=== PATIENT | female | born 1955 | race Caucasian/White ===

== ENCOUNTER 2022-10-09 10:33 | Outpatient (OUT) | payer OTHER, SELFPAY ==
--- NOTE | 2022-10-09 10:43 | XR_ITS ---
[address] [address] Patient Name: ROBBIE KEMP MRN: [id number] date: 1955 Sex: F Assigned Patient Location: [facility] Current Patient Location: [facility] Accession/Order Number: [id number] Exam Date: 10/09/2022 10:55 Report Date: 10/10/2022 06:23 At the request of: KINDRA CABRERA Procedure: XR DEXA axial skeleton EXAMINATION: XR DEXA axial skeleton, 10/09/2022 10:55 AM EDT HISTORY: Screening for osteoporosis Z13.820 COMPARISON: 2009 TECHNIQUE: Dual-energy X-ray absorptiometry (DEXA) bone density study performed for the axial skeleton. HISTORY: Screening for osteoporosis Z13.820 FINDINGS: Bone mineral density AP spine L1-L4 measures 1.558 g/sq cm. T score 3.1. WHO classification: Normal. Lowest bone mineral density is in the right femoral trochanter measures 0.931 g/sq cm. T score 0.7. WHO classification: Normal IMPRESSION: Normal bone mineral density. Low fracture risk Electronically authenticated by: SAE LOPEZ Date: 10/10/2022 06:23
--- NOTE | 2022-10-09 10:43 | MM_ITS ---
Patient: ROBBIE KEMP Exam Date: 10/09/2022 : 1955 Gender:F Ordering : DR KINDRA CABRERA Admission #: [id number] Family : DR Lopezbryant Nguyencarolyne . Order #: [id number] CLICK HERE TO VIEW EXAM RADIOLOGY REPORT PROCEDURE: MM TOMOSYNTHESIS SCREENING BI COMPARISON: MG MAMM SCREEN 3D DEREK CAD, 09/30/2021. MG MAMM SCREEN 3D DEREK CAD, 09/22/2020. INDICATIONS: Screening mammogram Z12.31 Calculator Name NCI Breast Cancer Risk Assessment Tool 5 Year Breast Cancer Risk 2.30% Lifetime Breast Cancer Risk 8.00% Personal Breast Cancer No Personal Ovarian Cancer No Treatments None Family Cancers Cousin-maternal with breast cancer at age ~50. LOCATION: [facility] BREAST COMPOSITION: Heterogeneously dense,which may obscure small masses. FINDINGS: DIAGNOSTIC CATEGORY 2--BENIGN FINDING. NO CHANGE FROM COMPARISON. Scattered benign-appearing calcifications are present. Scattered benign-appearing lymph nodes are present. RIGHT BREAST: No significant suspicious finding. LEFT BREAST: No significant suspicious finding. RECOMMENDATIONS: ROUTINE MAMMOGRAM AND CLINICAL EVALUATION IN 12 MONTHS. PLEASE NOTE: A NORMAL MAMMOGRAM DOES NOT EXCLUDE THE POSSIBILITY OF BREAST CANCER. A CLINICALLY SUSPICIOUS PALPABLE LUMP SHOULD BE BIOPSIED. Dictated by: Ramses Nice MD on 10/09/2022 at 12:08 Approved by: Ramses Nice MD on 10/09/2022 at 12:10
== END 2022-10-09 10:34 ==
LOC: MAMMO 10:37
PROVIDERS: PCP Family Medicine; Visit Provider Specialist
DX: Z12.31 Encounter for screening mammogram for malignant neoplasm of breast (principal); Z13.820 Encounter for screening for osteoporosis; Z78.0 Asymptomatic menopausal state; Z80.3 Family history of malignant neoplasm of breast
CPT/HCPCS: 77063; 77067; 77080

== ENCOUNTER 2023-02-07 12:00 | Outpatient (OUT) | payer OTHER, SELFPAY ==
[2023-02-07 12:20] LABS: Basophils Absolute Auto 0.1 10^3/uL (0.0-0.1); Basophils Percent Auto 1.4 % (0.2-2.0); Eosinophils Absolute Auto 0.1 10^3/uL (0.0-0.7); Eosinophils Percent Auto 2.5 % (0.9-7.0); Hematocrit 35.7 % (36.0-48.0); Hemoglobin 11.8 g/dL (12.0-16.0); Immature Granulocytes Abs Auto 0.02 10^3/uL (0.00-0.03); Immature Granulocytes Pct Auto 0.5 % (0.0-0.5); Lymphocytes Absolute Auto 1.5 10^3/uL (1.2-3.8); Lymphocytes Percent Auto 34.7 % (20.5-60.0); Mean Corpuscular HGB Conc 33.1 g/dL (29.9-35.2); Mean Corpuscular Hemoglobin 34.4 pg (26.7-34.0); Mean Corpuscular Volume 104.1 fL (81.0-99.0); Mean Platelet Volume 9.7 fL (9.5-13.5); Monocytes Absolute Auto 0.4 10^3/uL (0.3-0.8); Monocytes Percent Auto 8.9 % (1.7-12.0); Neutrophils Absolute Auto 2.3 10^3/uL (1.4-6.5); Platelet Count 166 10^3/uL (150-450); Red Blood Count 3.43 10^6/uL (4.20-5.40); Red Cell Distribution Width 11.8 % (11.0-15.0); White Blood Count 4.4 10^3/uL (4.0-11.0)
[2023-02-07 12:42] LABS: Anion Gap 10.4; BUN Creatinine Ratio 24.7; Calcium 8.4 mg/dL (8.5-10.1); Carbon Dioxide 28.7 mmol/L (21.0-32.0); Chloride 100 mmol/L (98-107); Estimated GFR (African America >60 (>=60); Estimated GFR (Non-African Ame >60 (>=60); Glucose 92 mg/dL (74-106); Potassium 4.1 mmol/L (3.5-5.1); Sodium 135 mmol/L (136-145); Thyroid Stimulating Hormone 1.312 uIU/mL (0.358-3.740)
[2023-02-07 13:58] LABS: Free T4 1.13 ng/dL (0.76-1.46)
== END 2023-02-07 12:01 | disposition home or self-care (01) ==
PROVIDERS: PCP Family Medicine; Visit Provider Family Medicine
DX: I10 Essential (primary) hypertension (principal)
CPT/HCPCS: 36415; 80048; 84439; 84443; 85025

== ENCOUNTER 2023-02-16 07:10 | Outpatient (OUT) | payer OTHER, SELFPAY ==
[2023-02-16 08:33] LABS: Alanine Aminotransferase 63 U/L (14-59); Albumin Level 3.3 g/dL (3.4-5.0); Alkaline Phosphatase 99 U/L (46-116); Anion Gap 13.8; Aspartate Amino Transferase 50 U/L (15-37); Bilirubin Total 0.2 mg/dL (0.2-1.0); Calcium 8.6 mg/dL (8.5-10.1); Carbon Dioxide 25.9 mmol/L (21.0-32.0); Chloride 104 mmol/L (98-107); Estimated GFR (African America >60 (>=60); Estimated GFR (Non-African Ame >60 (>=60); Globulin 3.4 g/dL; Glucose 81 mg/dL (74-106); Potassium 4.7 mmol/L (3.5-5.1); Sodium 139 mmol/L (136-145); Total Protein 6.7 g/dL (6.4-8.2)
[2023-02-16 10:41] LABS: Estimated Average Glucose 91 mg/dL; Glycohemoglobin A1C 4.8 % (4.5-6.2)
[2023-02-18 12:07] LABS: Insulin 4.1 uIU/mL (2.6-24.9)
== END 2023-02-16 07:11 | disposition home or self-care (01) ==
LOC: LAB 07:11
PROVIDERS: PCP Family Medicine; Visit Provider Family Medicine
DX: R73.09 Other abnormal glucose (principal); G57.93 Unspecified mononeuropathy of bilateral lower limbs
CPT/HCPCS: 36415; 80053; 83036; 83525

== ENCOUNTER 2023-02-26 15:25 | Outpatient (OUT) | payer OTHER, SELFPAY ==
[2023-02-26 16:04] LABS: Alanine Aminotransferase 35 U/L (14-59); Albumin Globulin Ratio 1.1; Albumin Level 3.6 g/dL (3.4-5.0); Alkaline Phosphatase 85 U/L (46-116); Anion Gap 9.9; Aspartate Amino Transferase 26 U/L (15-37); BUN Creatinine Ratio 31.3; Bilirubin Total 0.3 mg/dL (0.2-1.0); Calcium 8.7 mg/dL (8.5-10.1); Chloride 102 mmol/L (98-107); Estimated GFR (African America >60 (>=60); Estimated GFR (Non-African Ame >60 (>=60); Globulin 3.4 g/dL; Glucose 94 mg/dL (74-106); Potassium 3.9 mmol/L (3.5-5.1); Sodium 137 mmol/L (136-145)
== END 2023-02-26 15:26 | disposition home or self-care (01) ==
LOC: LAB 15:30
PROVIDERS: PCP Family Medicine; Visit Provider Family Medicine
DX: R74.8 Abnormal levels of other serum enzymes (principal)
CPT/HCPCS: 36415; 80053

== ENCOUNTER 2023-03-02 13:51 | Outpatient (OUT) | payer OTHER, SELFPAY ==
--- NOTE | 2023-03-02 14:24 | CA_ITS ---
Patient Name: ROBBIE KEMP MR#: [id number] : 1955 Exam Date: 03/02/2023 Ordering Doctor: MRS. HUSSAIN MEDELLIN NP ECHOCARDIOGRAM REPORT PROCEDURE: CA ECHO DOPPLER COMPLETE INDICATIONS: Dyspnea on exertion, hypertension COMPARISON: None. DESCRIPTION: COMPLETE ECHOCARDIOGRAM Real-time transthoracic echocardiography with 2D, M-mode, spectral and color flow Doppler performed. QUALITY: Technical quality was good. LEFT VENTRICLE: Normal chamber size. Thickened septal wall. LV EF: Global left ventricular systolic function is hyperdynamic; visually estimated ejection fraction is 65 to 70% DIASTOLIC: Normal diastolic function. ATRIAL SEPTUM: Inadequately seen. LEFT ATRIUM: Normal chamber size. RIGHT ATRIUM: Normal chamber size. RIGHT VENTRICLE: Normal chamber size. Normal systolic function. TRICUSPID VALVE: Normal mobility and thickness. Moderate regurgitation. Doppler studies reveal mildly (35-45) elevated right sided pressures. RVSP 35 mmHg MITRAL VALVE: Normal mobility and thickness. No evidence of mitral valve stenosis. Mild mitral annular calcification. No mitral regurgitation. AORTIC VALVE: Normal trileaflet appearance. No visible sclerosis. Normal leaflet mobility. No evidence of aortic valve stenosis. Trivial aortic regurgitation. AORTIC ROOT: Normal diameter and appearance. PULMONIC VALVE: Normal thickness and mobility. No stenosis. Trivial regurgitation. PERICARDIUM: No evidence of pericardial effusion. IVC: Collapses with inspirations. PLEURA: CONCLUSION: 1. Global left ventricular systolic function is hyperdynamic; visually estimated ejection fraction is 65 to 70% 2. The right ventricle is normal in size and systolic function 3. Normal diastolic function 4. Moderate tricuspid regurgitation 5. Mildly elevated right ventricular systolic pressure Adult Echocardiography Procedure Report Left Ventricle LVEDD (3.7 - 5.6 cm): 3.86 cm LVESD (2.2 - 4.0 cm): 2.53 cm LVIVS thickness (0.6 - 1.2 cm): 1.19 cm LVPW thickness (0.5 - 1.0 cm): 0.88 cm e': 0.11 m/s E - e': 5.38 LVOT Max Gradient: 4.02 mm[Hg] LVOT Area (cm2): 1.00 m/s Peak Velocity (LVOT): 1.00 m/s LVOT Diameter 2.39 cm Left Atrium LA Volume Index (2D A2C): 24.54 ml/m2 Left Atrium Systolic Dimension: 2.66 cm Mitral Valve MV E to A Ratio: 0.71 Mitral Valve A-Wave Peak Velocity: 0.80 m/s Mitral Valve E-Wave Peak Velocity: 0.57 m/s Right Ventricle Aorta AO Root Diam: 3.34 cm Ascending Ao Diam: 3.23 cm Aortic Valve AoV Area (Peak Prince): 3.98 cm2, 3.98 cm2 Peak Velocity(Antegrade Flow): 1.13 m/s Peak Gradient(Antegrade Flow): 5.10 mm[Hg] Tricuspid Valve Peak Velocity (Regurgitant Flow): 2.25 m/s, 2.81 m/s Pulmonic Valve Peak Velocity: 0.74 m/s Peak Gradient: 1.89 mm[Hg], 2.48 mm[Hg] Right Atrium Right Atrium Systolic Pressure: 32.21 ml, 32.21 ml Dictated by: Mirza Newton M.D. on 03/05/2023 at 17:28 Approved by: Mirza Newton M.D. on 03/05/2023 at 17:32
== END 2023-03-02 13:52 | disposition home or self-care (01) ==
LOC: CARD 13:51
PROVIDERS: PCP Family Medicine; Visit Provider Nurse Practitioner Acute Care
DX: R06.09 Other forms of dyspnea (principal); I11.9 Hypertensive heart disease without heart failure
CPT/HCPCS: 93306

== ENCOUNTER 2023-03-07 14:01 | Outpatient (OUT) | payer OTHER, SELFPAY ==
--- NOTE | 2023-03-07 | CT_ITS ---
[address] [address] Patient Name: ROBBIE KEMP MRN: [id number] date: 1955 Sex: F Assigned Patient Location: [facility] Current Patient Location: [facility] Accession/Order Number: [id number] Exam Date: 03/07/2023 14:12 Report Date: 03/07/2023 21:45 At the request of: MADELINE KOWALSKI Procedure: CT ankle RT wo con EXAM: CT ankle RT wo con HISTORY: Ankle pain COMPARISON: MRI 02/01/2023 and x-rays 01/17/2023 TECHNIQUE: Axial CT imaging is performed. Sagittal and coronal reformatted/reconstructed sequencing was additionally performed FINDINGS: IMPRESSION: Again demonstrated is posterior subluxation of the tibial plafond and from the talar dome with approximately 12 mm of uncovering of the anterior aspect of the talar dome and a small reactive talocrural joint effusion (sagittal 32 and sagittal 13 of the MRI). No acute fracture, dislocation or subluxation. Again demonstrated is mid foot sag. Reactive dorsal bossing of the talar neck with mild calcification of the dorsal talonavicular ligament. Mild degenerative changes of the calcaneocuboid joint. Multi partite os trigonum. Age-related subchondral cysts within the calcaneus at the floor of the sinus tarsi. The superficial subcutaneous soft tissues are free of edema, hematoma, mass or cyst. Evaluation of the tendons, ligaments, muscle and cartilage is nondiagnostic on CT imaging. Electronically authenticated by: SAE OKEEFE Date: 03/07/2023 21:45
--- NOTE | 2023-03-07 14:12 | CA_ITS ---
[facility] Test Date: 2023-03-07 Pat Name: ROBBIE KEMP Department: Room: - Gender: Female Imagery Analyst: Desiree Ramsay : 1955 Requested By: MADELINE KOWALSKI Order Number: [id number] Reading MD: SEEMA CHAUDHRY Interpretive Statements Biphasic doppler waveforms PVR waveforms with normal upstroke, amplitude and dicrotic notch Right: - no significant pressure gradient between cuffs - normal MERCEDES Left: - no significant pressure gradient between cuffs - normal MERCEDES Impression: - normal arterial evaluation of the lower extremities without hemodynamic impairment of the B/L lower extremities at rest (right MERCEDES 1.15, left MERCEDES 1.19) Electronically Signed On 03-08-2023 7:04:38 EST by SEEMA CHAUDHRY
== END 2023-03-07 14:02 | disposition home or self-care (01) ==
LOC: CARD 14:01
PROVIDERS: PCP Family Medicine; Visit Provider Podiatrist Foot & Ankle Surgery
DX: R09.89 Other specified symptoms and signs involving the circulatory and respiratory systems (principal); M25.571 Pain in right ankle and joints of right foot
CPT/HCPCS: 73700; 93923

== ENCOUNTER 2023-03-28 11:06 | Outpatient (OUT) | payer OTHER, SELFPAY ==
[2023-03-28 12:10] LABS: Basophils Absolute Auto 0.1 10^3/uL (0.0-0.1); Eosinophils Absolute Auto 0.1 10^3/uL (0.0-0.7); Eosinophils Percent Auto 2.3 % (0.9-7.0); Hematocrit 35.5 % (36.0-48.0); Hemoglobin 11.3 g/dL (12.0-16.0); Immature Granulocytes Abs Auto 0.02 10^3/uL (0.00-0.03); Immature Granulocytes Pct Auto 0.5 % (0.0-0.5); Lymphocytes Absolute Auto 1.1 10^3/uL (1.2-3.8); Mean Corpuscular HGB Conc 31.8 g/dL (29.9-35.2); Mean Corpuscular Hemoglobin 33.4 pg (26.7-34.0); Mean Platelet Volume 9.9 fL (9.5-13.5); Monocytes Absolute Auto 0.4 10^3/uL (0.3-0.8); Monocytes Percent Auto 9.3 % (1.7-12.0); Neutrophils Absolute Auto 2.4 10^3/uL (1.4-6.5); Neutrophils Percent Auto 58.9 % (43.0-75.0); Platelet Count 184 10^3/uL (150-450); Red Blood Count 3.38 10^6/uL (4.20-5.40); Red Cell Distribution Width 12.1 % (11.0-15.0)
--- NOTE | 2023-03-28 12:13 | P.GSHP_ITS ---
History of Present Illness History of Present Illness Chief complaint: right flat foot, ankle contracture Narrative: Patient presents for preadmission testing. Please see HPI from Dr. Beltran dated 03/13/2023. Review of Systems ROS Narrative Please see ROS from Dr. Beltran dated 03/13/2023. Cardiovascular Reports: shortness of breath with exertion [facility] Medical History (Updated 03/28/23 @ 12:16 by Bethany Dumont NP) Varus deformity, not elsewhere classified, right ankle ?M21.171 - Varus deformity, not elsewhere classified, right ankle (ICD-10) Valgus deformity, not elsewhere classified, right ankle ?M21.071 - Valgus deformity, not elsewhere classified, right ankle (ICD-10) Tarsal tunnel syndrome ?G57.50 - Tarsal tunnel syndrome, unspecified lower limb (ICD-10) Foot and ankle pain ?M79.673 - Pain in unspecified foot (ICD-10) ?M25.579 - Pain in unspecified ankle and joints of unspecified foot (ICD-10) Chronic ankle pain ?M25.579 - Pain in unspecified ankle and joints of unspecified foot (ICD-10) ?G89.29 - Other chronic pain (ICD-10) Posterior tibial tendinitis ?M76.829 - Posterior tibial tendinitis, unspecified leg (ICD-10) Rosacea ?L71.9 - Rosacea, unspecified (ICD-10) Osteoarthritis ?M19.90 - Unspecified osteoarthritis, unspecified site (ICD-10) Arthritis ?M19.90 - Unspecified osteoarthritis, unspecified site (ICD-10) Anemia ?D64.9 - Anemia, unspecified (ICD-10) Depression ?F32.A - Depression, unspecified (ICD-10) COVID-19 ?U07.1 - COVID-19 (ICD-10) Asthma ?J45.909 - Unspecified asthma, uncomplicated (ICD-10) Seasonal allergies ?J30.2 - Other seasonal allergic rhinitis (ICD-10) GERD (gastroesophageal reflux disease) ?K21.9 - Gastro-esophageal reflux disease without esophagitis (ICD-10) Palpitations ?R00.2 - Palpitations (ICD-10) High cholesterol ?E78.00 - Pure hypercholesterolemia, unspecified (ICD-10) Hypertension ?I10 - Essential (primary) hypertension (ICD-10) Hypothyroidism ?E03.9 - Hypothyroidism, unspecified (ICD-10) Postoperative nausea and vomiting ?R11.2 - Nausea with vomiting, unspecified (ICD-10) ?Z98.890 - Other specified postprocedural states (ICD-10) Ankle contracture ?M24.573 - Contracture, unspecified ankle (ICD-10) Flat feet ?M21.41 - Flat foot [pes planus] (acquired), right foot (ICD-10) ?M21.42 - Flat foot [pes planus] (acquired), left foot (ICD-10) Surgical History (Updated 03/28/23 @ 12:05 by Bethany Dumont NP) History of pubovaginal sling ?Z96.0 - Presence of urogenital implants (ICD-10) History of breast biopsy ?Z98.890 - Other specified postprocedural states (ICD-10) History of hysterectomy ?Z90.710 - Acquired absence of both cervix and uterus (ICD-10) History of appendectomy ?Z90.49 - Acquired absence of other specified parts of digestive tract (ICD- 10) History of foot surgery (2015) ?Z98.890 - Other specified postprocedural states (ICD-10) History of colonoscopy ?Z98.890 - Other specified postprocedural states (ICD-10) History of total hip arthroplasty (2020) ?Z96.649 - Presence of unspecified artificial hip joint (ICD-10) Family History (Updated 03/28/23 @ 11:40 by Bethany Dumont NP) Other Arthritis Family history of hypertension Social History (Updated 03/28/23 @ 11:31 by Bethany Dumont NP) Within the past year, how often did you have a drink containing alcohol: 2-3 times a week Smoking status: Former smoker Non-prescribed substance use: denies use Highest level of school completed/degree received: Associate degree: academic program Meds Home Medications and Allergies Home Medications Medication Instructions Recorded Confirmed Type albuterol sulfate 90 mcg/actuation 2 inh inhalation Q6H PRN shortness 03/28/23 03/28/23 History aerosol inhaler of breath or wheezing alprazolam 0.25 mg tablet 0.25 mg PO DAILY PRN anxiety 03/28/23 03/28/23 History amlodipine 5 mg tablet 5 mg PO DAILY 03/28/23 03/28/23 History carisoprodol 350 mg tablet 700 mg PO QPM 03/28/23 03/28/23 History carvedilol 25 mg tablet 25 mg PO DAILY 03/28/23 03/28/23 History cetirizine 10 mg tablet (Zyrtec) 10 mg PO DAILY PRN allergy symptoms 03/28/23 03/28/23 History desvenlafaxine succinate 50 mg 50 mg PO DAILY 03/28/23 03/28/23 History tablet,extended release 24 hr diclofenac sodium 75 mg 75 mg PO Q12H 03/28/23 03/28/23 History tablet,delayed release estradiol 0.5 mg tablet 0.5 mg PO DAILY 03/28/23 03/28/23 History ferrous sulfate 325 mg (65 mg 325 mg PO DAILY 03/28/23 03/28/23 History iron) tablet (Feosol) fluticasone 250 mcg-salmeterol 50 1 inh inhalation Q12H 03/28/23 03/28/23 History mcg/dose blistr powdr for inhalation (Advair Diskus) ipratropium bromide 17 2 inh inhalation Q8H PRN shortness 03/28/23 03/28/23 History mcg/actuation HFA aerosol inhaler of breath or wheezing (Atrovent HFA) levothyroxine 50 mcg tablet 50 mcg PO DAILY 03/28/23 03/28/23 History (Synthroid) lisinopril 40 mg tablet 40 mg PO DAILY 03/28/23 03/28/23 History minocycline 100 mg capsule 100 mg PO Q12H PRN rosacea 03/28/23 03/28/23 History multivitamin (Daily Multi-Vitamin 1 tab PO DAILY 03/28/23 03/28/23 History tablet) omeprazole 20 mg capsule,delayed 20 mg PO DAILY 03/28/23 03/28/23 History release simvastatin 20 mg tablet 20 mg PO DAILY 03/28/23 03/28/23 History Allergies Allergy/AdvReac Type Severity Reaction Status Date / Time acetaminophen [From Percocet] Allergy itching Verified 03/28/23 11:23 fentanyl Allergy Verified 03/28/23 11:23 hydromorphone [From Dilaudid] Allergy Verified 03/28/23 11:23 morphine Allergy itching Verified 03/28/23 11:23 oxycodone [From Percocet] Allergy itching Verified 03/28/23 11:23 Penicillins Allergy Rash Verified 03/28/23 11:23 Sulfa (Sulfonamide Allergy Rash Verified 03/28/23 11:23 Antibiotics) Exam Narrative Exam Narrative: Constitutional: Awake, alert, comfortable, well-appearing, nontoxic, interactive, vital signs as charted Head: Normocephalic, atraumatic Neck: Supple, normal appearance, normal range of motion, no meningeal signs, no lymphadenopathy Respiratory: No respiratory distress, breath sounds clear Cardiovascular: Regular rate and rhythm, strong and regular heart tones Neuro: No neurological deficits, normal sensation Psychiatric: Oriented ?3, normal affect Assessment and Plan Assessment and Plan (1) Flat feet: (2) Ankle contracture: (3) Posterior tibial tendinitis: (4) Chronic ankle pain: (5) Foot and ankle pain: (6) Tarsal tunnel syndrome: (7) Valgus deformity, not elsewhere classified, right ankle: (8) Varus deformity, not elsewhere classified, right ankle: Plan Right foot reconstruction with osteotomies, soft tissue balancing as needed scheduled with Dr. Beltran 04/12/2023.
[2023-03-28 12:40] LABS: Anion Gap 11.8; BUN Creatinine Ratio 23.3; Calcium 8.5 mg/dL (8.5-10.1); Carbon Dioxide 27.1 mmol/L (21.0-32.0); Chloride 102 mmol/L (98-107); Estimated GFR (African America >60 (>=60); Estimated GFR (Non-African Ame >60 (>=60); Glucose 126 mg/dL (74-106); Potassium 3.9 mmol/L (3.5-5.1); Sodium 137 mmol/L (136-145)
== END 2023-03-28 11:07 | disposition home or self-care (01) ==
LOC: PST 11:06
PROVIDERS: PCP Family Medicine; Visit Provider Podiatrist Foot & Ankle Surgery
DX: Z01.812 Encounter for preprocedural laboratory examination (principal); M21.41 Flat foot [pes planus] (acquired), right foot; M24.571 Contracture, right ankle
CPT/HCPCS: 36415; 80048; 85025; G0463

== ENCOUNTER 2023-04-12 08:06 | Day surgery (SDC) | payer OTHER, SELFPAY ==
--- NOTE | 2023-04-12 | FL_ITS ---
[address] [address] Patient Name: ROBBIE KEMP MRN: [id number] date: 1955 Sex: F Assigned Patient Location: [facility] Current Patient Location: [facility] Accession/Order Number: [id number] Exam Date: 04/12/2023 10:50 Report Date: 04/13/2023 11:16 At the request of: MADELINE KOWALSKI Procedure: FL fluoroscopy <1hr NON-READ EXAM: FL fluoroscopy <1hr NON-READ HISTORY: INTER OPERATIVE IMAGING TECHNIQUE: FINDINGS: Please see Operative Report. Electronically authenticated by: RADIOLOGIST NO Date: 04/13/2023 11:16
[2023-04-12 08:17] LABS: Basophils Absolute Auto 0.1 10^3/uL (0.0-0.1); Basophils Percent Auto 1.3 % (0.2-2.0); Eosinophils Absolute Auto 0.1 10^3/uL (0.0-0.7); Eosinophils Percent Auto 2.5 % (0.9-7.0); Hematocrit 34.3 % (36.0-48.0); Immature Granulocytes Abs Auto 0.01 10^3/uL (0.00-0.03); Immature Granulocytes Pct Auto 0.2 % (0.0-0.5); Lymphocytes Absolute Auto 1.2 10^3/uL (1.2-3.8); Lymphocytes Percent Auto 26.8 % (20.5-60.0); Mean Corpuscular HGB Conc 32.1 g/dL (29.9-35.2); Mean Corpuscular Hemoglobin 33.7 pg (26.7-34.0); Mean Corpuscular Volume 105.2 fL (81.0-99.0); Mean Platelet Volume 9.3 fL (9.5-13.5); Monocytes Absolute Auto 0.7 10^3/uL (0.3-0.8); Monocytes Percent Auto 16.5 % (1.7-12.0); Neutrophils Absolute Auto 2.4 10^3/uL (1.4-6.5); Neutrophils Percent Auto 52.7 % (43.0-75.0); Platelet Count 153 10^3/uL (150-450); Red Blood Count 3.26 10^6/uL (4.20-5.40); Red Cell Distribution Width 11.9 % (11.0-15.0); White Blood Count 4.5 10^3/uL (4.0-11.0)
[2023-04-12 09:01] LABS: Glucometer 87 mg/dL (74-106)
[2023-04-12 09:03] VITALS: BP 122/78; PULSE 82; RESP 18; TEMP 35.7; O2SAT 96; BMI 28.0
[2023-04-12] MEDS: LACTATED RINGER'S SOLUTION 1,000 ML 50 ML IV ×2 (09:18→11:00)
[2023-04-12] MEDS: CLINDAMYCIN PHOSPHATE/D5W 900 MG/50 ML PIGGYBACK 100 MG IV (10:33)
--- NOTE | 2023-04-12 10:41 | PC.NURSE ---
1014 PATIENT POSITIONED , TIME OUT PERFORMED 2 MG VERSED GIVEN. PROCEDURE FOR FEMORAL BLOCK STARTED AT 1014 WITH PICTURE CAPTURED WHEN NEEDLE WAS POSITIONED. THIS BLOCK ENDED AT 1022. 1023 PATIENT REPOSITIONED TO PERFORM POPLITEAL BLOCK, 2 MG VERSED GIVEN AT THIS TIME. PHYSICIAN CAPTURED PICTURE OF NEEDLE PLACEMENT AND ADMINISTERED. BLOCK COMPLETED AT 1029. VITALS REMAINED STABLE THROUGHOUT PROCEDURE. PATIENT TOLERATED WELL.
[2023-04-12] MEDS: THROMBI-GEL SIZE 40 HEMOSTAT 1 EACH TOPICAL (11:57)
--- NOTE | 2023-04-12 13:35 | XR_ITS ---
[address] [address] Patient Name: ROBBIE KEMP MRN: [id number] date: 1955 Sex: F Assigned Patient Location: [facility] Current Patient Location: Accession/Order Number: [id number] Exam Date: 04/12/2023 14:00 Report Date: 04/13/2023 09:37 At the request of: LINA ROACH Procedure: XR ankle RT min 3V PROCEDURE: XR foot RT min 3V, XR ankle RT min 3V HISTORY: Postop x-ray PACU COMPARISON: XR Right Foot and Ankle 01/17/2023 FINDINGS: BONES:Anterior and posterior calcaneal osteotomy and realignment with spacer placement anteriorly. Medial cuneiform osteotomy and wedge placement. Mild degenerative change of the first metatarsophalangeal joint, and degenerative spurring/beaking along dorsal-anterior margin of the talus. Bone harvesting from distal tibia. SOFT TISSUES:Expected postoperative findings. Images were obtained to cast material. EFFUSION:None visible. OTHER: Negative. XR/XR ankle RT min 3V IMPRESSION: 1. Surgical changes as detailed above. Electronically authenticated by: ELVA MELISSA Date: 04/13/2023 09:37
--- NOTE | 2023-04-12 13:35 | XR_ITS ---
[address] [address] Patient Name: ROBBIE KEMP MRN: [id number] date: 1955 Sex: F Assigned Patient Location: [facility] Current Patient Location: Accession/Order Number: [id number] Exam Date: 04/12/2023 14:00 Report Date: 04/13/2023 09:37 At the request of: LINA ROACH Procedure: XR foot RT min 3V PROCEDURE: XR foot RT min 3V, XR ankle RT min 3V HISTORY: Postop x-ray PACU COMPARISON: XR Right Foot and Ankle 01/17/2023 FINDINGS: BONES:Anterior and posterior calcaneal osteotomy and realignment with spacer placement anteriorly. Medial cuneiform osteotomy and wedge placement. Mild degenerative change of the first metatarsophalangeal joint, and degenerative spurring/beaking along dorsal-anterior margin of the talus. Bone harvesting from distal tibia. SOFT TISSUES:Expected postoperative findings. Images were obtained to cast material. EFFUSION:None visible. OTHER: Negative. XR/XR foot RT min 3V IMPRESSION: 1. Surgical changes as detailed above. Electronically authenticated by: ELVA MELISSA Date: 04/13/2023 09:37
[2023-04-12 13:46] VITALS: BP 127/78; PULSE 96; RESP 12; TEMP 36.5; O2SAT 91
--- NOTE | 2023-04-12 13:52 | PM.ORONB ---
Brief Operative Note Date of procedure: 04/12/23 Pre-op diagnosis: right posterior tibial tendon dysfunction, hindfoot valgus, forefoot varus Post-op diagnosis: other (right posterior tibial tendon dysfunction with has planovalgus deformity, hindfoot valgus, forefoot varus and equinus) Procedure: PROCEDURES PERFORMED: right Goode and medial displacement calcaneal osteotomies, cotton midfoot osteotomy, gastrocnemius recession, application of short leg splint and intraoperative fluoroscopy examination INDICATION for PROCEDURE: Patient is a 68-year-old female who presents me for surgical consultation regarding worsening pain, dysfunction and deformity of her right foot. She initially attempted ankle bracing, rice therapy and NSAIDs without much help. On examination she had significant deformity however was reducible/flexible. Imaging did reveal mild arthritis but given her deformity was reducible I believe she would do well with osteotomies avoiding fusion. 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 After reviewing the potential risks and benefits of the procedure as well as the postoperative course patient wished to proceed with surgical intervention and consented to the above procedures. INTRAOPERATIVE FINDINGS: significant talonavicular joint uncoverage and hindfoot valgus were noted. after the evidence calcaneal osteotomy was performed the transverse plane deformity corrected and was fully reduced however hindfoot valgus was not fully reduced therefore decision was made to perform medial displacement calcaneal osteotomy.. Evidence of subfibular impingement was also noted which was eliminated through the calcaneal osteotomies. Reduced ankle joint dorsiflexion with the knee flexed and extended. Medial column was hypermobile and forefoot varus significant and was eliminated with a cotton osteotomy.bone quality was within normal limits given patient's age and gender PROCEDURES IN DETAIL: Patient was identified in pre op and consent was reviewed. Correct side and site were identified and marked. Pre-op antibiotics were started. Patient was brought to OR suite and place on table in a supine position. General anesthesia was administered. Tourniquet applied. Operative extremity was prepped and draped in usual sterile fashion. Formal time-out was performed and the foot/ankle were exsanguinated and tourniquet inflated. A longitudinal incision over the medial aspect of the calf two finger breadths posterior to the posterior aspect of tibia was performed. Combination sharp and blunt dissection with all bleeders being coagulated gained access to the gastrocnemius aponeurosis. Once the aponeurosis was isolated a speculum was inserted from the medial to lateral position just superficial to the aponeurosis. The speculum allowed full visualization of the aponeurosis and the foot was held in maximal dorsiflexed position. A fifteen blade was used to transversely incise the gastrocnemius fascia to two separate location (one proximal and one distal) followed by release of the soleus fascia. 10 degrees of ankle joint dorsiflexion was obtained. The area was flushed with copious sterile saline and skin was closed in layers. Fluoroscopy was used to identify the calcaneal cuboid joint and associated anatomy to help plan the incision and placement of the osteotomy. An oblique incision was placed over the peroneal tendons comminution sharp blunt dissection gained access to the peroneal tendons which were retracted out of the way. Dissection was performed to expose the sinus tarsi and the calcaneocuboid joint. Periosteum was reflected from the osteotomy site and retractors were used to help plan the osteotomy with the aid of fluoroscopy. A K wire was placed into the calcaneal cuboid joint. A vertical osteotomy was placed in the anterior portion of the calcaneus from lateral to medial between the anterior and middle STJ facets. The osteotomy was performed with a sagittal saw then a Hintermann distractor was used to distract the osteotomy. Under fluoroscopy, the osteotomy was distracted allowing deformity to be fully corrected. Trial implants were used to determine the proper size. Then a 8 mm Goode wedge was packed with bone allograft placed and distractor was removed. Surgical site was irrigated with copious sterile saline. the transverse plane deformity was corrected and although the hindfoot valgus did improve slightly it was not fully reduced therefore decision was made to perform medial displacement calcaneal osteotomy C-arm was used to identify safe incision placement over the lateral calcaneus anterior to the Achilles and plantar fascial attachments. Sharp and blunt dissection to the lateral calcaneus was performed. Sural nerve was not visualized but protected. A saw was used to create an osteotomy in line with the incision and the osteotomy was finished with an osteotome on medial cortex. A lamina welder operator was placed inside the osteotomy to stretch soft tissues. A 2 cm incision was placed over the posterior aspect of the calcaneus and two guidewires were drilled into the tuberosity but not across the osteotomy. The lamina welder operator was removed and with the foot plantarflexed and the knee bent the tuberosity was translated medially. I held the tuberosity in the corrected position while my assistant floor covering printer advanced the previously placed guidewires. Fluoroscopic guidance was then checked to ensure proper placement of the guidewires. Two 5.5mm headless compression screws were place over the wires. Guide wires were then removed. A shelf of overhanging bone at the osteotomy site was smoothed with a rongeur and rasp. hindfoot valgus was now produced as well as talar navicular joint under coverage however forefoot varus persisted Fluoroscopy was used to identify the medial cuneiform. A longitudinal incision medial to the extensor hallucis longus tendon was performed. Combination sharp and blunt dissection gained access to the midportion of the medial cuneiform. Care was taken to identify the proximal and distal articular surfaces. A saw was used to perform an osteotomy from dorsal to plantar. K wires were placed on each side and the osteotomy in a distractor was placed over the K wires. Distraction was performed until forefoot varus and reduced. The amount of distracted was measured with ruler and trials for Cotton wedges. A 6 mm Cotton wedge was packed with bone allograft then placed into the osteotomy. Distractor and K wires were removed after confirmation of wedge placement on fluoroscopy. A dry sterile dressing consisting of Xeroform on the incisions followed by 4 x 4 gauze, ABDs, and Kerlix were applied. Multiple layers of cast padding were then applied to ensure all bony prominences were well-padded. A plaster posterior splint was then applied which was held in place by Wolf wraps. Capillary refill time to all digits was evaluated and had appropriate response. POSTOPERATIVE PLAN: Discharge home under family's care Post op instructions provided verbally and written prescription(s) were placed in chart [facility] operative foot/ankle x6 wks Follow-up in 1 week Implants: Medline 5.5 mm headless screws (x2) [id number] Goode (8mm) wedge and Cotton (6mm) wedge Sparc allograft 1cc Anesthesia: regional and General-LMA Surgeon: Benja Beltran Military Administrative Technician: Delfino Berry Estimated blood loss (mL): 10 Tourniquet time (min): 120 Pathology: none sent Condition: stable Disposition: PACU
[2023-04-12 13:55] LABS: Glucometer 135 mg/dL (74-106)
[2023-04-12 14:16] VITALS: BP 123/82; PULSE 86; RESP 14; O2SAT 92
[2023-04-12 14:46] VITALS: BP 114/73; PULSE 81; RESP 16; O2SAT 98
== END 2023-04-12 15:00 | disposition home or self-care (01) ==
PROVIDERS: Anesthesiology; PCP Family Medicine; Visit Provider Podiatrist Foot & Ankle Surgery
PROC: (CPT 1474; principal; 2023-04-12 09:40)
DX: M21.41 Flat foot [pes planus] (acquired), right foot (principal); M24.571 Contracture, right ankle; I10 Essential (primary) hypertension; D64.9 Anemia, unspecified; M76.821 Posterior tibial tendinitis, right leg; M19.071 Primary osteoarthritis, right ankle and foot; M21.071 Valgus deformity, not elsewhere classified, right ankle; M21.171 Varus deformity, not elsewhere classified, right ankle; G57.50 Tarsal tunnel syndrome, unspecified lower limb; M76.829 Posterior tibial tendinitis, unspecified leg; F32.A Depression, unspecified; Z86.16 Personal history of COVID-19; J45.909 Unspecified asthma, uncomplicated; K21.9 Gastro-esophageal reflux disease without esophagitis; E78.00 Pure hypercholesterolemia, unspecified; E03.9 Hypothyroidism, unspecified; Z87.891 Personal history of nicotine dependence; M06.9 Rheumatoid arthritis, unspecified; Z86.010 Personal history of colon polyps; Z90.710 Acquired absence of both cervix and uterus; Z96.642 Presence of left artificial hip joint
CPT/HCPCS: 01474; 01480; 27687; 28300; 28304; 36415; 64445; 64447; 73610; 73630; 76000; 82948; 85025; C1713; J2704

== ENCOUNTER 2023-04-14 10:10 | Emergency (ER) | payer OTHER, SELFPAY ==
[2023-04-14 10:13] VITALS: BP 150/91; PULSE 95; RESP 14; TEMP 36.6; O2SAT 98; BMI 26.6
--- NOTE | 2023-04-14 10:42 | ED.GENADUL1 ---
HPI - General Adult General Chief complaint: Extremity Injury, Lower Stated complaint: POST OPERATIVE COMPLICATIONS Time Seen by Provider: 04/14/23 10:22 Source: patient Mode of arrival: scooter Limitations: no limitations History of Present Illness HPI narrative: 68-year-old female presents for a problem with her splint. Two days ago she had ankle surgery for tendon issue. She feels like it was biting into her skin on the medial calcaneal area. She states she can feel it now that the block is wearing off. Related Data Home Medications Medication Instructions Recorded Confirmed albuterol sulfate 90 mcg/actuation 2 inh inhalation Q6H PRN shortness 03/28/23 04/14/23 aerosol inhaler of breath or wheezing alprazolam 0.25 mg tablet 0.25 mg PO DAILY PRN anxiety 03/28/23 04/14/23 amlodipine 5 mg tablet 5 mg PO DAILY 03/28/23 04/14/23 carisoprodol 350 mg tablet 700 mg PO QPM 03/28/23 04/14/23 carvedilol 25 mg tablet 25 mg PO DAILY 03/28/23 04/14/23 cetirizine 10 mg tablet (Zyrtec) 10 mg PO DAILY PRN allergy symptoms 03/28/23 04/14/23 desvenlafaxine succinate 50 mg 50 mg PO DAILY 03/28/23 04/14/23 tablet,extended release 24 hr diclofenac sodium 75 mg 75 mg PO Q12H 03/28/23 04/14/23 tablet,delayed release estradiol 0.5 mg tablet 0.5 mg PO DAILY 03/28/23 04/14/23 ferrous sulfate 325 mg (65 mg 325 mg PO DAILY 03/28/23 04/14/23 iron) tablet (Feosol) fluticasone 250 mcg-salmeterol 50 1 inh inhalation Q12H 03/28/23 04/14/23 mcg/dose blistr powdr for inhalation (Advair Diskus) ipratropium bromide 17 2 inh inhalation Q8H PRN shortness 03/28/23 04/14/23 mcg/actuation HFA aerosol inhaler of breath or wheezing (Atrovent HFA) levothyroxine 50 mcg tablet 50 mcg PO DAILY 03/28/23 04/14/23 (Synthroid) lisinopril 40 mg tablet 40 mg PO DAILY 03/28/23 04/14/23 minocycline 100 mg capsule 100 mg PO Q12H PRN rosacea 03/28/23 04/14/23 multivitamin (Daily Multi-Vitamin 1 tab PO DAILY 03/28/23 04/14/23 tablet) omeprazole 20 mg capsule,delayed 20 mg PO DAILY 03/28/23 04/14/23 release simvastatin 20 mg tablet 20 mg PO DAILY 03/28/23 04/14/23 Previous Rx's Medication Instructions Recorded alendronate 70 mg tablet (Fosamax) 70 mg PO QWEEK 12 weeks #12 tabs 04/12/23 aspirin 81 mg tablet,delayed 81 mg PO BID 30 days #60 tabs 04/12/23 release (Adult Low Dose Aspirin) cholecalciferol (vitamin D3) 125 125 mcg PO DAILY 90 days #90 caps 04/12/23 mcg (5,000 unit) capsule docusate sodium 100 mg capsule 100 mg PO BID PRN constipation 7 04/12/23 (Colace) days #14 caps doxycycline hyclate 100 mg capsule 100 mg PO BID 7 days #14 caps 04/12/23 hydrocodone 5 mg-acetaminophen 325 1 tab PO Q6H PRN pain 7 days #28 04/12/23 mg tablet tabs ondansetron 4 mg disintegrating 4 mg PO Q8H PRN nausea and 04/12/23 tablet vomiting 5 days #15 tabs tizanidine 2 mg tablet 2 mg PO TID PRN muscle spasticity 04/12/23 7 days #21 tabs Allergies Allergy/AdvReac Type Severity Reaction Status Date / Time acetaminophen [From Percocet] Allergy itching Verified 04/14/23 10:18 fentanyl Allergy Verified 04/14/23 10:18 hydromorphone [From Dilaudid] Allergy Verified 04/14/23 10:18 morphine Allergy itching Verified 04/14/23 10:18 oxycodone [From Percocet] Allergy itching Verified 04/14/23 10:18 Penicillins Allergy Rash Verified 04/14/23 10:18 Sulfa (Sulfonamide Allergy Rash Verified 04/14/23 10:18 Antibiotics) Review of Systems ROS Narrative A ten point review of systems is negative except as noted above. [facility] Medical History (Updated 04/14/23 @ 10:42 by Sachin Blackman MD) Varus deformity, not elsewhere classified, right ankle ?M21.171 - Varus deformity, not elsewhere classified, right ankle (ICD-10) Valgus deformity, not elsewhere classified, right ankle ?M21.071 - Valgus deformity, not elsewhere classified, right ankle (ICD-10) Tarsal tunnel syndrome ?G57.50 - Tarsal tunnel syndrome, unspecified lower limb (ICD-10) Foot and ankle pain ?M79.673 - Pain in unspecified foot (ICD-10) ?M25.579 - Pain in unspecified ankle and joints of unspecified foot (ICD-10) Chronic ankle pain ?M25.579 - Pain in unspecified ankle and joints of unspecified foot (ICD-10) ?G89.29 - Other chronic pain (ICD-10) Posterior tibial tendinitis ?M76.829 - Posterior tibial tendinitis, unspecified leg (ICD-10) Rosacea ?L71.9 - Rosacea, unspecified (ICD-10) Osteoarthritis ?M19.90 - Unspecified osteoarthritis, unspecified site (ICD-10) Arthritis ?M19.90 - Unspecified osteoarthritis, unspecified site (ICD-10) Anemia ?D64.9 - Anemia, unspecified (ICD-10) Depression ?F32.A - Depression, unspecified (ICD-10) COVID-19 ?U07.1 - COVID-19 (ICD-10) Asthma ?J45.909 - Unspecified asthma, uncomplicated (ICD-10) Seasonal allergies ?J30.2 - Other seasonal allergic rhinitis (ICD-10) GERD (gastroesophageal reflux disease) ?K21.9 - Gastro-esophageal reflux disease without esophagitis (ICD-10) Palpitations ?R00.2 - Palpitations (ICD-10) High cholesterol ?E78.00 - Pure hypercholesterolemia, unspecified (ICD-10) Hypertension ?I10 - Essential (primary) hypertension (ICD-10) Hypothyroidism ?E03.9 - Hypothyroidism, unspecified (ICD-10) Postoperative nausea and vomiting ?R11.2 - Nausea with vomiting, unspecified (ICD-10) ?Z98.890 - Other specified postprocedural states (ICD-10) Ankle contracture ?M24.573 - Contracture, unspecified ankle (ICD-10) Flat feet ?M21.41 - Flat foot [pes planus] (acquired), right foot (ICD-10) ?M21.42 - Flat foot [pes planus] (acquired), left foot (ICD-10) Surgical History (Updated 03/28/23 @ 12:05 by Bethany Dumont NP) History of pubovaginal sling ?Z96.0 - Presence of urogenital implants (ICD-10) History of breast biopsy ?Z98.890 - Other specified postprocedural states (ICD-10) History of hysterectomy ?Z90.710 - Acquired absence of both cervix and uterus (ICD-10) History of appendectomy ?Z90.49 - Acquired absence of other specified parts of digestive tract (ICD-10) History of foot surgery (2015) ?Z98.890 - Other specified postprocedural states (ICD-10) History of colonoscopy ?Z98.890 - Other specified postprocedural states (ICD-10) History of total hip arthroplasty (2020) ?Z96.649 - Presence of unspecified artificial hip joint (ICD-10) Family History (Updated 03/28/23 @ 11:40 by Bethany Dumont NP) Other Arthritis Family history of hypertension Social History (Updated 04/12/23 @ 08:59 by Marichuy Black) Within the past year, how often did you have a drink containing alcohol: 2-3 times a week Smoking status: Former smoker Non-prescribed substance use: denies use Previous occupational history: retired Highest level of school completed/degree received: Associate degree: academic program Exam Narrative Exam Narrative: Nurses note and vital signs reviewed and patient is not hypoxic. General: The patient appears well and in no apparent distress. Patient is resting comfortably on cart. Skin: Warm, dry, no pallor noted. There is no rash noted. Head: Normocephalic, atraumatic Eye: Normal conjunctiva, no drainage Ears, Nose, Mouth, and Throat: oral mucosa is moist. Nares patent. Cardiovascular: Regular Rate and Rhythm Respiratory: Patient is in no distress, no accessory muscle use Back: non-tender, no CVA tenderness bilaterally to percussion. GI: soft and nontender Musculoskeletal: ssplint present on her lower leg. I removed it. There is no active bleeding. Neurological: A&O, normal speech Psychiatric: Cooperative Constitutional Vital Signs, click to edit/add: Last Vital Signs Temp 98 F 04/14/23 10:13 Pulse 95 H 04/14/23 10:13 Resp 14 04/14/23 10:13 BP 150/91 H 04/14/23 10:13 Pulse Ox 98 04/14/23 10:13 O2 Del Method Room Air 04/14/23 10:13 Course Vital Signs Vital signs: Vital Signs Temperature 98 F 04/14/23 10:13 Pulse Rate 95 H 04/14/23 10:13 Respiratory Rate 14 04/14/23 10:13 Blood Pressure 150/91 H 04/14/23 10:13 Pulse Oximetry 98 04/14/23 10:13 Oxygen Delivery Method Room Air 04/14/23 10:13 Temperature 98 F 04/14/23 10:13 Pulse Rate 95 H 04/14/23 10:13 Respiratory Rate 14 04/14/23 10:13 Blood Pressure 150/91 H 04/14/23 10:13 Pulse Oximetry 98 04/14/23 10:13 Oxygen Delivery Method Room Air 04/14/23 10:13 Medical Decision Making MDM Narrative Medical decision making narrative: I removed her previous splint and applied a new one and she feels much better. Application checked by me and found be appropriate, she is neurovascularly intact. Differential Diagnosis Differential Diagnosis: splint problem, postoperative pain Discharge Plan Discharge Chief Complaint: Extremity Injury, Lower Clinical Impression: Aftercare for cast or splint check or change Patient Disposition: Home, Self-Care Time of Disposition Decision: 10:41 Condition: Good Mode of Transportation: Private Vehicle Prescriptions / Home Meds: No Action albuterol sulfate 90 mcg/actuation HFA aerosol inhaler 2 inh INHALATION Q6H PRN (Reason: shortness of breath or wheezing) fluticasone propion-salmeterol [Advair Diskus] 250-50 mcg/dose blister with device 1 inh INHALATION Q12H alprazolam 0.25 mg tablet 0.25 mg PO DAILY PRN (Reason: anxiety) amlodipine 5 mg tablet 5 mg PO DAILY carisoprodol 350 mg tablet 700 mg PO QPM carvedilol 25 mg tablet 25 mg PO DAILY desvenlafaxine succinate 50 mg tablet extended release 24 hr 50 mg PO DAILY diclofenac sodium 75 mg tablet,delayed release (DR/EC) 75 mg PO Q12H estradiol 0.5 mg tablet 0.5 mg PO DAILY Atrovent HFA 17 mcg/actuation HFA aerosol inhaler 2 inh INHALATION Q8H PRN (Reason: shortness of breath or wheezing) levothyroxine [Synthroid] 50 mcg tablet 50 mcg PO DAILY lisinopril 40 mg tablet 40 mg PO DAILY minocycline 100 mg capsule 100 mg PO Q12H PRN (Reason: rosacea) omeprazole 20 mg capsule,delayed release(DR/EC) 20 mg PO DAILY simvastatin 20 mg tablet 20 mg PO DAILY ferrous sulfate [Feosol] 325 mg (65 mg iron) tablet 325 mg PO DAILY multivitamin [Daily Multi-Vitamin] Tablet 1 tab PO DAILY cetirizine [Zyrtec] 10 mg tablet 10 mg PO DAILY PRN (Reason: allergy symptoms) doxycycline hyclate 100 mg capsule 100 mg PO BID 7 Days Qty: 14 0RF aspirin [Adult Low Dose Aspirin] 81 mg tablet,delayed release (DR/EC) 81 mg PO BID 30 Days Qty: 60 0RF docusate sodium [Colace] 100 mg capsule 100 mg PO BID PRN (Reason: constipation) 7 Days Qty: 14 0RF cholecalciferol (vitamin D3) 125 mcg (5,000 unit) capsule 125 mcg PO DAILY 90 Days Qty: 90 0RF hydrocodone-acetaminophen 5-325 mg tablet 1 tab PO Q6H PRN (Reason: pain) 7 Days Qty: 28 0RF Rx Instructions: previously tolerated - itching with oxycodone alendronate [Fosamax] 70 mg tablet 70 mg PO QWEEK 84 Days Qty: 12 0RF tizanidine 2 mg tablet 2 mg PO TID PRN (Reason: muscle spasticity) 7 Days Qty: 21 0RF ondansetron 4 mg tablet,disintegrating 4 mg PO Q8H PRN (Reason: nausea and vomiting) 5 Days Qty: 15 0RF Instructions: Splint Care (ED) Stand Alone Forms: Portal Instructions Referrals: Rio Ambriz MD [Primary Care Provider] - 1 week
--- OUTSIDE RECORDS SUMMARY | 2023-04-14 11:06 | XMS_ITS | CCD ---
Author Name Unknown Address [address] [place] [address] Organization [facility] Care Team Providers Care Support Assistant Name Role Phone IGNACIO CAN Unavailable Unavailable IGNACIO, CAN Unavailable Unavailable IGNACIO, CAN Unavailable Unavailable UNABLE TO VALIDATE Unavailable Unavailable Arvind Marie Unavailable Unknown, Referring Provider Unavailable Unav ailable Unavailable Unavailable MD Kory Ambriz Primary Care Provider GRETA Martin Attending Provider UNKNOWN, PCP Primary Care Unavailable Lamont Brown, Dr. Deutsch Referring Unavailable Lamont Brown, Dr. Deutsch Attending Unavailable Lamont Brown, Dr. Deutsch Attending Unavailable UNKNOWN, PCP Primary Care Unavailable Lamont Brown, Dr. Deutsch Referring Unavailable Lamont Brown, Dr. Deutsch Attending Unavailable HOY ., DR HORN Admitting Unavailable HOY ., DR HORN Attending Unavailable HOY ., DR HORN Primary Care Unavailable HOY ., DR HORN Consulting Unavailable BELÉN, DR ELVA Anaya Consulting Unavailable HOY ., DR HORN Admitting Unavailable HOY ., DR HORN Attending Unavailable HOY ., DR HORN Primary Care Unavailable HOY ., DR HORN Consulting Unavailable BELÉN, DR ELVA Anaya Consulting Unavailable YISSEL CARDOZO Admitting Unavailable YISSEL CARDOZO Attending Unavailable LINDA ., DR HORN Primary Care Unavailable DR SAE LOPEZ V Consulting Unavailable CAS, YISSEL Consulting Unavailable LEILA MARTIN Admitting Unavailable LEILA MARTIN Attending Unavailable LINDA ., DR HORN Primary Care Unavailable DR SAE LOPEZ V Consulting Unavailable NU, LEILA Consulting Unavailable NU, LEILA Admitting Unavailable LEILA MARTIN Attending Unavailable DR KORY SAUCEDO Primary Care Unavailable BELÉN, DR ELVA Anaya Consulting Unavailable LEILA MARTIN Consulting Unavailable DR KORY SAUCEDO Admitting Unavailable LINDA Bennett, DR HORN Attending Unavailable LINDA Bennett, DR HORN Primary Care Unavailable LINDA Bennett, DR HORN Consulting Unavailable LARS KELLY Attending Unavailable HUSSAIN MEDELLIN Attending Unavailable Allergies Allergy Classification Reported Allergen(s) Allergy Type Date of Onset Reaction(s) Facility (9 sources) HYDROmorphone; Translations: [HYDROMORPHONE] Drug Allergy 01-26-20 21 anaphylaxis [facility] (8 sources) Morphine Drug Allergy 01-26-20 21 rash [facility] (7 sources) Penicillin V Drug Allergy [facility] [employer] Other (7 sources) sulfaSALAzine Drug Allergy [facility] [employer] Other (4 sources) Penicillins; Translations: [Penicillins] Allergy to drug (finding) 01-26-20 21 Itching, [facility] (2 sources) Sulfamethoxazole; Translations: [sulfa] Drug Allergy Itching [address] Work Phone: (1 source) Sulfonamides (Antibiotic) Allergy to substance 01-26-20 21 [facility] (1 source) Ciprofloxacin Drug Allergy [facility] (2 sources) fentaNYL; Translations: [FENTANYL] Drug Allergy 04-23-19 15 [facility] Repository (1 source) HYDROmorphone Drug Allergy 11-29-19 13 [facility] (1 source) Penicillins Drug allergy (disorder) 04-27-19 21 [facility] (1 source) Sulfonamides (Antibiotic) Drug allergy (disorder) 11-29-19 13 [facility] Rep[facility] (1 source) Sulfanilamide; Translations: [SULFANILAMIDE] Drug Allergy 09-06-19 23 [facility] Repository Medications Current Medications Medication Drug Class(es) Dates Sig (Normalized) Sig (Original) acetaminophen 500 mg oral tablet (5 sources) Start: 12-29-2020 Acetaminophen (Tylenol Ex Str Rapid Release) 500 mg Tablet Active 1000 MG PO Q6H December 29, 2020 12:00am take 1 tablet by mouth every fou r hours Tylenol 325 MG 1 tablet as needed Orally every 4 hrs Active aspirin 81 mg chewable tablet (2 sources) Platelet Aggregation Inhibitor, Nonsteroidal Anti-inflammatory Drug take 1 tablet by mouth every twelve hours Aspirin 81 MG 1 tablet Orally twice a day for 37 days Do not fill until 01/10/21 post op MARK Active estradiol 0.5 mg oral tablet (12 sources) Estrogen Start: take 1 mg by mouth once daily at bedtime Estradiol Active 1 MG PO Daily at bedtime December 29, 2020 12:00am Start: 09-01-2020 take 1 tablet by reji th once daily Estradiol 0.5 MG Oral Tablet TAKE 1 TABLET BY MOUTH DAILY Quantity: 30 Refills: 0 Ordered: 29-Aug-2021 DO Start : 01-Sep-2020 Active traMADol hydrochloride 50 mg oral tablet (4 sources) Opioid Agonist Start: 12-15-2020 take 50 mg by mouth three times daily Tramadol Active 50 MG PO Three times daily December 29, 2020 12:00am take 1 tablet by reji th every twenty-four hours traMADol HCl 50 MG 1 tablet as needed Orally Once a day Active Tylenol Extra Strength 500 MG (4 sources) take 2 tablets by mo uth every eight hours as needed Tylenol Extra Strength 500 MG 2 tabs Orally every 8 hrs for 30 days prn Active take 2 tablets by mouth every ei ght hours Tylenol Extra Strength 500 MG 2 tabs Orally every 8 hrs for 30 days Do not fill until 01/10/21 post op MARK Active Completed/Discontinued Medications Medication Drug Class(es) Dates Sig (Normalized) Sig (Original) acyclovir 800 mg oral tablet (2 sources) Herpesvirus Nucleoside Analog DNA Polymerase Inhibitor, Herpes Simplex Virus Nucleoside Analog DNA Polymerase Inhibitor, Herpes Zoster Virus Nucleoside Analog DNA Polymerase Inhibitor Start: 09-08-2021 take 1 tablet by mouth once daily Acyclovir 800 MG Oral Tablet TAKE 1 TABLET BY MOUTH DAILY Quantity: 30 Refills: 0 Ordered: 08-Sep-2021 DO Start : 08-Sep-2021 Active albuterol 0.83 mg/ml inhalation solution (3 sources) beta2-Adrenergic Agonist Start: 12-12-2021 Albuterol Sulfate (2.5 MG/3ML) 0.083% Inhalation Nebulization Solution Nebulize 1 unit dose now via nebulizer Quantity: 0 Refills: 0 Ordered: 12-Dec-2021 La Nena Miguel DO Start : 12-Dec-2021 Complete Start: 06-02-2021 take 2 puff(s) by in halation four times daily as needed Albuterol Sulfate HFA 108 (90 Base) MCG/ACT Inhalation Aerosol Solution INHALE 2 PUFFS FOUR TIMES DAILY NEEDED Quantity: 8 Refills: 0 Ordered: 02-Jun-2021 DO Start : 02-Jun-2021 Active ALPRAZolam 0.25 mg oral tablet (2 sources) Benzodiazepine Start: 05-05-2021 take 1 tablet by mouth once daily as needed ALPRAZolam 0.25 MG Oral Tablet TAKE 1 TABLET BY MOUTH DAILY NEEDED MUST LAST 30 DAYS Quantity: 15 Refills: 0 Ordered: 05-May-2021 DO Start : 05-May-2021 Active carisoprodol 350 mg oral tablet (2 sources) Muscle Relaxant Start: 05-02-2021 take 2 tablets by mouth at bedtime Carisoprodol 350 MG Oral Tablet TAKE 2 TABLETS BY MOUTH AT BEDTIME Quantity: 60 Refills: 0 Ordered: 02-May-2021 DO Start : 02-May-2021 Complete Start: 12-29-2020 take 700 mg by mouth once daily at bedtime Carisoprodol Active 700 MG PO Daily at bedtime December 29, 2020 12:00am carvedilol 6.25 mg oral tablet (10 sources) alpha-Adrenergic Cathy, beta-Adrenergic Cathy Start: 09-03-2020 take 1 tablet by mouth twice daily Carvedilol 6.25 MG Oral Tablet Take 1 tablet by mouth twice a day Quantity: 60 Refills: 0 Ordered: 22-Aug-2021 DO Start : 03-Sep-2020 Active celecoxib 200 mg oral capsule (2 sources) Nonsteroidal Anti-inflammatory Drug Start: 12-09-2021 take 1 capsule by mouth once daily Celecoxib 200 MG Oral Capsule TAKE 1 CAPSULE BY MOUTH DAILY Quantity: 30 Refills: 0 Ordered: 09-Dec-2021 DO Start : 09-Dec-2021 Active 12 hr cetirizine hydrochloride 5 mg / pseudoephedrine hydrochloride 120 mg extended release oral tablet (2 sources) alpha-Adrenergic Agonist, Histamine-1 Receptor Antagonist Zyrtec-D 5-120 MG TB12 TAKE 1 TABLET TWICE DAILY NEEDED. Quantity: 0 Refills: 0 Ordered: 12-Dec-2021 DO Active clindamycin 150 mg oral capsule (2 sources) Lincosamide Antibacterial Start: 07-31-2021 take 4 capsules by mouth every hour Clindamycin HCl - 150 MG Oral Capsule TAKE 4 CAPSULES BY MOUTH ONE HOUR PRIOR TO DENTAL APPOINTMENT. Quantity: 12 Refills: 0 Ordered: 31-Jul-2021 DO Start : 31-Jul-2021 Active cyclobenzaprine hydrochloride 10 mg oral tablet (3 sources) Muscle Relaxant Start: 06-03-2021 take 1 tablet by mouth three times daily as needed for muscle spasms Cyclobenzaprine HCl - 10 MG Oral Tablet Take 1 tablet by mouth three times a day as needed for muscle spasm Quantity: 90 Refills: 0 Ordered: 03-Jun-2021 DO Start : 03-Jun-2021 Complete take 1 tablet by reji th every eight hours as needed for muscle spasms Cyclobenzaprine HCl 10 MG 1 tablet as ne eded for muscle spasm Orally every 8 hours for 14 days Active diclofenac sodium 75 mg delayed release oral tablet (3 sources) Nonsteroidal Anti-inflammatory Drug Start: 06-02-2021 take 1 tablet by mouth twice daily Diclofenac Sodium 75 MG Oral Tablet Delayed Release TAKE 1 TABLET BY MOUTH TWICE DAILY Quantity: 60 Refills: 0 Ordered: 02-Jun-2021 DO Start : 02-Jun-2021 Complete take 1 tablet by reji th every twelve hours Diclofenac Sodium 75 MG 1 tablet as need ed Orally Twice a day Active diphenhydrAMINE hydrochloride 25 mg oral tablet (2 sources) Histamine-1 Receptor Antagonist Benadryl 25 MG TABS TAKE 1 TABLET EVERY 4 HOURS NEEDED. Quantity: 0 Refills: 0 Ordered: 12-Dec-2021 DO Active docusate sodium 100 mg oral capsule (3 sources) Start: 01-08-20 21 take 1 capsule by mouth twice daily Docusate Sodium 100 MG Oral Capsule TAKE 1 CAPSULE BY MOUTH TWICE DAILY Quantity: 28 Refills: 0 Ordered: 10-Jan-2021 DO Start : 07-Jan-2021 Complete doxycycline hyclate 100 mg oral capsule (3 sources) Tetracycline-class Drug Start: 01-08-20 21 take 1 capsule by mouth twice daily Doxycycline Hyclate 100 MG Oral Capsule TAKE 1 CAPSULE BY MOUTH TWICE DAILY Quantity: 14 Refills: 0 Ordered: 10-Jan-2021 DO Start : 07-Jan-2021 Complete 60 actuat fluticasone propionate 0.25 mg/actuat / salmeterol 0.05 mg/actuat dry powder inhaler (2 sources) Corticosteroid, beta2-Adrenergic Agonist Start: 12-13-19 22 Fluticasone-Salmete rol 250-50 MCG/ACT Inhalation Aerosol Powder Breath Activated USE 1 INHALATION TWICE A DAY Quantity: 1 Refills: 5 Ordered: 10-Jan-2022 Lamont La Nena PATTERSON Start : 12-Dec-2021 Active ibuprofen 800 mg oral tablet (5 sources) Nonsteroidal Anti-inflammatory Drug Start: 06-02-19 take 1 tablet by mouth four times daily as needed for pain Ibuprofen 800 MG Oral Tablet TAKE 1 TABLET BY MOUTH FOUR TIMES DAILY NEEDED FOR PAIN Quantity: 120 Refills: 0 Ordered: 25-Jul-2021 DO Start : 02-Jun-2021 Active take 1 tablet by reji th once at mealtime as needed Ibuprofen 800 MG 1 tablet with food or milk as needed Orally once per morning Active 200 actuat ipratropium bromide 0.017 mg/actuat metered dose inhaler (2 sources) Anticholinergic Start: 08-22-2021 take 2 puff(s) by inhalation four times daily Atrovent HFA 17 MCG/ACT Inhalation Aerosol Solution INHALE 2 PUFFS FOUR TIMES DAILY Quantity: 13 Refills: 0 Ordered: 07-Nov-2021 DO Start : 22-Aug-2021 Active levothyroxine sodium 0.05 mg oral tablet (10 sources) l-Thyroxine Start: 06-02-2021 take 1 tablet by mouth once daily Levothyroxine Sodium 50 MCG Oral Tablet TAKE 1 TABLET DAILY. Quantity: 0 Refills: 0 Ordered: 29-Aug-2021 DO Start : 02-Jun-2021 Active Start: 12-29-2020 take 100 ug by mouth once daily in the morning Levothyroxine Active 100 MCG PO Every morning December 29, 2020 12:00am take 1 tablet by reji th once daily in the morning Levothyroxine Sodium 50 MCG 1 tablet in the morning on an empty stomach Orally Once a day Active lisinopril 10 mg oral tablet (10 sources) Angiotensin Converting Enzyme Inhibitor Start: 12-29-2020 take 1 tablet by mouth once daily Lisinopril 10 MG Oral Tablet TAKE 1 TABLET BY MOUTH DAILY Quantity: 30 Refills: 0 Ordered: 29-Aug-2021 DO Start : 02-Jun-2021 Active take 1 tablet [address] [facility] every twenty-four hours Lisinopril 40 MG 1 tablet Orally Once a day Active omeprazole 20 mg delayed release oral capsule (11 sources) Proton Pump Inhibitor Start: 06-02-2021 take 1 capsule by mouth once daily Omeprazole 20 MG Oral Capsule Delayed Release TAKE 1 CAPSULE BY MOUTH DAILY Quantity: 30 Refills: 0 Ordered: 29-Aug-2021 DO Start : 02-Jun-2021 Active Start: 12-29-2020 take 40 mg by mouth twice jose g y Omeprazole Active 40 MG PO Twice daily December 29, 2020 12:00am Start: 07-07-2020 take 1 capsule by [facility] every twelve hours Omeprazole 40 MG Oral Capsule Delayed Release TAKE 1 CAPSULE BY MOUTH EVERY 12 HOURS Quantity: 60 Refills: 0 Ordered: 27-May-2021 DO Start : 07-Jul-2020 Complete take 1 capsule by [facility] once daily Omeprazole 40 MG 1 capsule 30 minutes before morning meal Orally Once a day Active ondansetron 4 mg disintegrating oral tablet (2 sources) Serotonin-3 Receptor Antagonist Start: 12-31-2020 take 1 tablet by mouth four times daily as needed Ondansetron 4 MG Oral Tablet Disintegrating DISSOLVE 1 (ONE) TABLET on tongue FOUR TIMES DAILY NEEDED Quantity: 9 Refills: 0 Ordered: 31-Dec-2020 DO Start : 31-Dec-2020 Active oxyCODONE hydrochloride 5 mg oral tablet (5 sources) Opioid Agonist Start: 02-15-2021 take 1 tablet by mouth every four hours as needed for pain oxyCODONE HCl - 5 MG Oral Tablet TAKE 1 TABLET BY MOUTH EVERY FOUR HOURS NEEDED FOR PAIN Quantity: 42 Refills: 0 Ordered: 15-Feb-2021 DO Start : 15-Feb-2021 Complete prednisoLONE acetate 10 mg/ml ophthalmic suspension (1 source) Corticosteroid Start: 07-04-2021 take 1 drop(s) into the eye(s) every four hours prednisoLONE Acetate 1 % Ophthalmic Suspension instill 1 (ONE) DROP EVERY 4 HOURS WHILE AWAKE into operative eye. start after surgery. Quantity: 15 Refills: 0 Ordered: 31-Jul-2021 DO Start : 04-Jul-2021 Complete simvastatin 20 mg oral tablet (10 sources) HMG-CoA Reductase Inhibitor Start: 12-29-2020 take 1 tablet by mouth once daily Simvastatin 20 MG Oral Tablet TAKE 1 TABLET BY MOUTH DAILY Quantity: 30 Refills: 0 Ordered: 31-Aug-2021 DO Start : 02-Jun-2021 Active 7 actuat umeclidinium 0.0625 mg/actuat dry powder inhaler (1 source) Anticholinergic Start: 08-31-2021 take 1 puff(s) by inhalation once daily Incruse Ellipta 62.5 MCG/INH Inhalation Aerosol Powder Breath Activated INHALE 1 PUFF DAILY DIRECTED Quantity: 30 Refills: 0 Ordered: 31-Aug-2021 DO Start : 31-Aug-2021 Complete Problems Active Problems Problem Classification Problem Date Documented Date Episodic/Chronic Allergic reactions (2 sources) Allergic condition; Translations: [Allergy, unspecified, not elsewhere classified] Episodic Comment on above: pollen and pets immu nocap 11/2021; Asthma (1 source) Moderate persistent asthma; Translations: [Asthma, unspecified type, unspecified] Chronic Deficiency and other anemia (1 source) Anemia, unspecified; Translations: [ANEMIA UNSPECIFIED] Onset: 05-25-2022 Episodic Diabetes mellitus without complication (1 source) Other abnormal glucose; Translations: [OTHER ABNORMAL GLUCOSE] Onset: 05-25-2022 Episodic Disorders of lipid metabolism (3 sources) Hyperlipidemia, unspecified; Translations: [Mixed hyperlipidemia] Onset: 05-25-2022 Chronic Esophageal disorders (1 source) Gastro-esophageal reflux disease without esophagitis; Translations: [GERD WITHOUT ESOPHAGITIS] Onset: 05-25-2022 Chronic Essential hypertension (2 sources) Essential (primary) hypertension; Translations: [Essential (primary) hypertension] Onset: 03-29-2023 Chronic Nonspecific chest pain (1 source) Atypical chest pain; Translations: [Other chest pain] 01-25-2021 Episodic Nutritional deficiencies (1 source) Vitamin D deficiency, unspecified; Translations: [VITAMIN D DEFICIENCY UNSPECIFIED] Onset: 05-25-2022 Chronic Osteoarthritis (9 sources) Osteoarthritis of left hip joint; Translations: [Unilateral primary osteoarthritis, left hip] Onset: 01-07-2021 Resolved: 02-07-2021 Chronic Other connective tissue disease (1 source) Foot pain; Translations: [Pain in unspecified foot] 12-18-2020 Episodic Other inflammatory condition of skin (2 sources) Itching ; Translations: [Unspecified pruritic disorder] Episodic Other lower respiratory disease (2 sources) Dyspnea on exertion; Translations: [Shortness of breath] Episodic Other lower respiratory disease (2 sources) Other forms of dyspnea; Translations: [Other forms of dyspnea] Onset: 02-26-2023 Episodic Other non-traumatic joint disorders (7 sources) Hip pain; Translations: [Pain in left hip] Episodic Other screening for suspected conditions (not mental disorders or infectious disease) (7 sources) Abnormal findings on diagnostic imaging of other parts of musculoskeletal system; Translations: [Encounter for screening mammogram for malignant neoplasm of breast] Onset: 09-30-2021 Episodic Other skin disorders (1 source) Nonscarring hair loss, unspecified; Translations: [NONSCARRING HAIR LOSS UNSPECIFIED] Onset: 05-25-2022 Episodic Spondylosis; intervertebral disc disorders; other back problems (2 sources) Other cervical disc degeneration, unspecified cervical region; Translations: [Spondylosis without myelopathy or radiculopathy, cervical region] Onset: 06-29-2022 Chronic Spondylosis; intervertebral disc disorders; other back problems (4 sources) Cervicalgia; Translations: [CERVICALGIA] Onset: 07-10-2022 Episodic Thyroid disorders (4 sources) Hypothyroidism, unspecified; Translations: [HYPOTHYROIDISM UNSPECIFIED] Onset: 05-23-2022 Chronic Past or Other Problems Problem Classification Problem Date Documented Date Episodic/Chronic Acquired foot deformities (1 source) Flat foot [pes planus] (acquired), right foot; Translations: [FLAT FOOT PES PLANUS ACQ RT FOOT] Onset: 11-18-2021 Episodic Other connective tissue disease (4 sources) Posterior tibial tendinitis, right leg; Translations: [POSTERIOR TIBIAL TENDINITIS RT LEG] Onset: 11-15-2021 Episodic Other connective tissue disease (4 sources) Pain in right foot; Translations: [PAIN IN RIGHT FOOT] Onset: 10-18-2021 Episodic Other non-traumatic joint disorders (1 source) Pain in left hip Onset: 01-07-2021 Resolved: 01-07-2021 Episodic Residual codes; unclassified (3 sources) Other specified postprocedural states; Translations: [History of arthroplasty of left hip Z98.890] Onset: 01-24-2021 Resolved: 07-06-2021 Episodic Residual codes; unclassified (1 source) Tobacco use Onset: 01-07-2021 Resolved: 01-07-2021 Episodic Residual codes; unclassified (1 source) Family history of malignant neoplasm of breast; Translations: [FAMILY HX MALIG NEOPLASM OF BREAST] Onset: 10-03-2021 Episodic Results Test Name Value Interpretation Reference Range Facility Office Visiton 03-29-2023 Follow-up visit [id number] Robbie Kemp 1955 F Date Provider Department Center 03/29/2023 [facility]-L[facility] KELLY ALEXANDRA Benedict Family History Problem Relation Age of Onset Hypertension Mother Atrial fibrillation Sister Family Status - Relation Status Age at Mother Sister Alive Level of Service:03374 IN OFFICE/OUTPATIENT ESTABLISHED MOD MDM 30-39 MIN Normal [facility] Office Visiton 02-26-2023 Follow-up visit [id number] Robbie Kemp 1955 M Date Provider Department Center 02/26/2023 HUSSAIN SIMMONS CARD [facility] Family History Problem Relation Age of Onset Hypertension Mother Atrial fibrillation Sister Family Status - Relation Status Age at Mother Sister Alive Level of Service:[id number] IN OFFICE/OUTPATIENT ESTABLISHED MOD MDM 30-39 MIN Normal [facility] MRI CSPINE WO CONon 07-12-19 23 MRI CSPINE WO CON EXAMINATION: MRI CSP INE WO CON HISTORY: Neck pain ; acute left neck pain COMPARISON: XR C-spine 06/27/2022 TECHNIQUE: A variety of imaging planes and parameters were utilized for visualization of suspected pathology. FINDINGS: CRANIOCERVICAL AREA: Normal foramen magnum with no Chiari malformation. PARASPINAL AREA: Normal with no visible mass. BONES: Straightening of normal lordotic curvature C3-C7. Minimal grade 1 anterolisthesis of C4 on 5. No fracture or bone lesion. CORD: Normal caliber, contour, and signal intensity. CERVICAL DISC LEVELS: C2-C3: Early degenerative disc disease is present without focal protrusion or neural impingement. C3-C4: Mild central canal and marked bilateral foramen narrowing. Mild diffuse disc bulging with uncovertebral joint spurring bilaterally moderate degenerative facet arthropathy, right greater than left. C4-C5: Moderate left foramen narrowing without significant central canal or right foramen narrowing. Minimal grade 1 anterolisthesis of C4 on 5 and mild disc space narrowing. Moderate-marked left facet degenerative facet arthropathy. C5-C6: Mild central canal narrowing. Moderate left, mild right foramen narrowing. Mild diffuse disc bulging and mild degenerative facet arthropathy bilaterally. C6-C7: Moderate central canal and and moderate bilateral foramen narrowing. Moderate diffuse disc bulging with mild disc height reduction. Mild degenerative facet arthropathy bilaterally. C7-T1:. Mild grade 1 anterolisthesis of C7 on T1. Mild diffuse disc bulging without significant central canal or foramen narrowing. IMPRESSION: 1. Multilevel degenerative disc disease and degenerative facet arthropathy causing central canal and foramen narrowing. 2. Marked bilateral foramen narrowing at C3-C4; moderate left foramen narrowing C4-C5, C5-C6, C6-C7. Electronically authenticated by: ELVA MELISSA Date: 2022-07-11 11:43 Normal [facility] XR CSPINE MIN 4 VIEWSon XR CSPINE MIN 4 VIEWS EXAMINATION: XR CSPINE MIN 4 VIEWS HISTORY: Neck pain ; acute posterior left neck pain; no known injury COMPARISON: No relevant comparison available. FINDINGS: BONES: Slight reversal of normal lordotic curvature from C4 through C7. No fracture or spondylolisthesis. Moderate degenerative facet arthropathy at most cervical levels, greatest at C3-C4. Suspect multilevel moderate or greater foramen narrowing. DISC SPACES: Mild narrowing C3-C4. Moderate narrowing C4-C5. Marked narrowing C5-C6, C6-C7. PARASPINOUS: Negative. No paraspinous abnormality is seen. OTHER: Negative. IMPRESSION: 1. Multilevel degenerative disc disease and degenerative facet arthropathy. Consider MRI for further evaluation. Electronically authenticated by: ELVA MELISSA Date: 2022-06-28 09:12 Normal [facility] CBC AUTO DIFFon 05-23-2022 BASO # 0.1 103/ul Normal 0.0-0.1 [facility] Comment on above: Performed By: #### C BC #### [facility] Laboratory [address] [address] [address] Natasha Celeste Basophils/100 WBC (Bld) 1.4 % Normal 0.2-2.0 [facility] Comment on above: Performed By: #### C BC #### [facility] Laboratory [address] [place] [address] Dr. Natasha Celeste EO # 0.1 103/ul Normal 0.0-0.7 [facility] Comment on above: Performed By: #### C BC #### [facility] Laboratory [address] [place] [address] Dr. Natasha Celeste Eosinophils/100 WBC (Bld) 2.4 % Normal 0.9-7.0 [facility] Comment on above: Performed By: #### C BC #### [facility] Laboratory [address] [place] [address] Dr. Natasha Celeste Erythrocyte distribution width (RBC) [Ratio] 12.3 % Normal 11.0-15.0 [facility] Comment on above: Performed By: #### C BC #### [facility] Laboratory [address] [place] [address] Dr. Natasha Celeste Hematocrit (Bld) [Volume fraction] 41.6 % Normal 36.0-48.0 [facility] Comment on above: Performed By: #### C BC #### [facility] Laboratory [address] [place] [address] Dr. Natasha Celeste Hemoglobin (Bld) [Mass/Vol] 13.6 g/dL Normal 12.0-16.0 [facility] Comment on above: Performed By: #### C BC #### [facility] Laboratory [address] [place] [address] Dr. Natasha Celeste IG # 0.02 10e3/ul Normal 0.00-0.03 [facility] Comment on above: Performed By: #### C BC #### [facility] Laboratory [address] [place] [address] Dr. Natasha Celeste IG % 0.5 % Normal 0.0-0.5 [facility] Comment on above: Performed By: #### C BC #### [facility] Laboratory [address] [place] [address] Dr. Natasha Celeste LYMPH # 1.4 103/ul Normal 1.2-3.8 [facility] Comment on above: Performed By: #### C BC #### [facility] Laboratory [address] [place] [address] Dr. Natasha Celeste Lymphocytes/100 WBC (Bld) 33.3 % Normal 20.5-60.0 [facility] Comment on above: Performed By: #### C BC #### [facility] Laboratory [address] [place] [address] Dr. Natasha Celeste MANUAL DIFF REQ NO Normal [facility] Comment on above: Performed By: #### C BC #### [facility] Laboratory [address] [place] [address] Dr. Natasha Celeste MCH (RBC) [Entitic mass] 33.1 pg Normal 26.7-34.0 [facility] Comment on above: Performed By: #### C BC #### [facility] Laboratory [address] [place] [address] Dr. Natasha Celeste MCHC (RBC) [Mass/Vol] 32.7 g/dL Normal 29.9-35.2 [facility] Comment on above: Performed By: #### C BC #### [facility] Laboratory [address] [place] [address] Dr. Natasha Celeste MCV (RBC) [Entitic vol] 101.2 fL Critically high 81.0-99.0 [facility] Comment on above: Performed By: #### C BC #### [facility] Laboratory [address] [place] [address] Dr. Natasha Celeste MONO # 0.4 103/ul Normal 0.3-0.8 [facility] Comment on above: Performed By: #### C BC #### [facility] Laboratory [address] [place] [address] Dr. Natasha Celeste Monocytes/100 WBC (Bld) 10.4 % Normal 1.7-12.0 [facility] Comment on above: Performed By: #### C BC #### [facility] Laboratory [address] [place] [address] Dr. Natasha Celeste NEUT # 2.2 103/ul Normal 1.4-6.5 [facility] Comment on above: Performed By: #### C BC #### [facility] Laboratory [address] [address] [address] Natasha Celeste Neutrophils/100 WBC (Bld) 52.0 % Normal 43.0-75.0 [facility] Comment on above: Performed By: #### C BC #### [facility] Laboratory [address] [address] [address] Natasha Celeste Platelet mean volume (Bld) [Entitic vol] 9.5 fL Normal 9.5-13.5 [facility] Comment on above: Performed By: #### C BC #### [facility] Laboratory [address] [place] [address] Dr. Natasha Celeste PLT 186 103/ul Normal 150-450 [facility] Comment on above: Performed By: #### C BC #### [facility] Laboratory [address] [place] [address] Dr. Natasha Celeste RBC 4.11 106/ul Critically low 4.20-5.40 [facility] Comment on above: Performed By: #### C BC #### [facility] Laboratory [address] [place] [address] Dr. Natasha Celeste WBC 4.2 103/ul Normal 4.0-11.0 [facility] Comment on above: Performed By: #### C BC #### [facility] Laboratory [address] [place] [address] Dr. Natasha Celeste FREE THYROXINE INDEX T7on FTI 3.47 Normal 1.30-4.50 [facility] Comment on above: Performed By: #### V ITAD, IRON #### [facility] Laboratory [address] [place] [address] Dr. Natasha Celeste T3U 35.0 % Normal 30.0-39.0 [facility] Comment on above: Performed By: #### V ITAD, IRON #### [facility] Laboratory [address] [place] [address] Dr. Natasha Celeste T4 [Mass/Vol] 9.90 ug/dL Normal 4.80-13.90 [facility] Comment on above: Performed By: #### V ITAD, IRON #### [facility] Laboratory [address] [address] [address] Natasha Celeste GLYCOHEMOGLOBIN A1Con 2022 ADA RECOMMENDATION SEE BELOW Normal [facility] Comment on above: Result Comment: ADA RECOMMENDED LIMIT 4.0 - 6.0 ADA THERAPEUTIC TARGET < 7.0 ACTION SUGGESTED > 7.0 Performed By: #### A 1C #### [facility] Laboratory [address] [place] [address] Dr. Natasha Celeste Glucose [Mass/Vol] 97 mg/dL Normal [facility] Comment on above: Performed By: #### A 1C #### [facility] Laboratory [address] [place] [address] Dr. Natasha Celeste HbA1c (Bld) [Mass fraction] 5.0 % Normal 4.5-6.2 [facility] Comment on above: Performed By: #### A 1C #### [facility] Laboratory [address] [place] [address] Dr. Natasha Celeste IRONon 05-23-2022 Iron [Mass/Vol] 105.0 ug/dL Normal 50.0-170.0 [facility] Comment on above: Performed By: #### V ITAD, IRON #### [facility] Laboratory [address] [place] [address] Dr. Natasha Celeste LIPID PROFILEon 05-23-2022 CHOL-HDL RATIO NORM SEE BELOW Normal [facility] Comment on above: Result Comment: 3.3 - 4.4 LOW RISK 4.4 - 7.1 AVERAGE RISK 7.1 - 11.0 MODERATE RISK >11.0 HIGH RISK Performed By: #### V ITAD, IRON #### [facility] Laboratory [address] [place] [address] Dr. Natasha Celeste Cholesterol [Mass/Vol] 176 mg/dL Normal <=200 [facility] Comment on above: Performed By: #### V ITAD, IRON #### [facility] Laboratory [address] [place] [address] Dr. Natasha Celeste Cholesterol in HDL [Mass/Vol] 70 mg/dL Critically high 40-60 [facility] Comment on above: Performed By: #### V ITAD, IRON #### [facility] Laboratory [address] [address] [address] Natasha Celeste Cholesterol in LDL [Mass/Vol] 83.2 mg/dL Normal [facility] Comment on above: Performed By: #### V ITAD, IRON #### [facility] Laboratory [address] [address] [address] Natasha Celeste Cholesterol.total/ Cholesterol in HDL [Mass ratio] 2.5 {ratio} Normal [facility] Comment on above: Performed By: #### V ITAD, IRON #### [facility] Laboratory [address] [address] [address] Natasha Celeste HDL NORMAL > or = 60 mg/dl - LO W CARDIOVASCULAR RISK <40 mg/dl - HIGH CARDIOVASCULAR RISK Normal [facility] Comment on above: Performed By: #### V ITAD, IRON #### [facility] Laboratory [address] [address] [address] Natasha Celeste LDL CALC NORMAL SEE BELOW Normal [facility] Comment on above: Result Comment: <100 mg/dl OPTIMAL 100 - 129 mg/dl NEAR OR ABOVE OPTIMAL 130 - 159 mg/dl BORDERLINE HIGH 160 - 189 mg/dl HIGH >190 mg/dl VERY HIGH Performed By: #### V ITAD, IRON #### [facility] Laboratory [address] [address] [address] Natasha Celeste Triglyceride [Mass/Vol] 114 mg/dL Normal <=150 [facility] Comment on above: Performed By: #### V ITAD, IRON #### [facility] Laboratory [address] [address] [address] Natasha Celeste VLDL CALC 22.8 mg/dL Normal [facility] Comment on above: Performed By: #### V ITAD, IRON #### [facility] Laboratory [address] [address] [address] Natasha Celeste PROF 14(COMP METB)on 023 Albumin [Mass/Vol] 3.8 g/dL Normal 3.4-5.0 [facility] Comment on above: Performed By: #### V ITAD, IRON #### [facility] Laboratory [address] [address] [address] Natasha Celeste Albumin/Globulin [Mass ratio] 1.0 {ratio} Normal [facility] Comment on above: Performed By: #### V ITAD, IRON #### [facility] Laboratory [address] [address] [address] Natasha Celeste ALP [Catalytic activity/Vol] 74 U/L Normal 46-116 [facility] Comment on above: Performed By: #### V ITAD, IRON #### [facility] Laboratory [address] [address] [address] Natasha Celeste ALT [Catalytic activity/Vol] 37 U/L Normal 14-59 [facility] Comment on above: Performed By: #### V ITAD, IRON #### [facility] Laboratory [address] [place] [address] Dr. Natasha Celeste Anion gap [Moles/Vol] 14.7 mmol/L Normal [facility] Comment on above: Performed By: #### V ITAD, IRON #### [facility] Laboratory [address] [place] [address] Dr. Natasha Celeste AST [Catalytic activity/Vol] 34 U/L Normal 15-37 [facility] Comment on above: Performed By: #### V ITAD, IRON #### [facility] Laboratory [address] [place] [address] Dr. Natasha Celeste Bilirubin [Mass/Vol] 0.5 mg/dL Normal 0.2-1.0 [facility] Comment on above: Performed By: #### V ITAD, IRON #### [facility] Laboratory [address] [place] [address] Dr. Natasha Celeste Calcium [Mass/Vol] 8.9 mg/dL Normal 8.5-10.1 [facility] Comment on above: Performed By: #### V ITAD, IRON #### [facility] Laboratory [address] [place] [address] Dr. Natasha Celeste Chloride [Moles/Vol] 103 mmol/L Normal 98-107 [facility] Comment on above: Performed By: #### V ITAD, IRON #### [facility] Laboratory [address] [place] [address] Dr. Natasha Celeste CO2 [Moles/Vol] 27.4 mmol/L Normal 21.0-32.0 [facility] Comment on above: Performed By: #### V ITAD, IRON #### [facility] [address] [address] [address] Natasha Celeste Creatinine [Mass/Vol] 0.69 mg/dL Normal 0.55-1.02 [facility] Comment on above: Performed By: #### V ITAD, IRON #### [facility] Laboratory [address] [place] [address] Dr. Natasha Celeste EGFR-AF NAMIBIAN >60 Normal >=60 [facility] Comment on above: Performed By: #### V ITAD, IRON #### [facility] Laboratory [address] [place] [address] Dr. Natasha Celeste EGFR-NON AF NAMIBIAN >60 Normal >=60 [facility] Comment on above: Performed By: #### V ITAD, IRON #### [facility] [address] [address] [address] Natasha Celeste Globulin (S) [Mass/Vol] 3.9 g/dL Normal [facility] Comment on above: Performed By: #### V ITAD, IRON #### [facility] Laboratory [address] [place] [address] Dr. Natasha Celeste Glucose [Mass/Vol] 103 mg/dL Normal 74-106 [facility] Comment on above: Performed By: #### V ITAD, IRON #### [facility] Laboratory [address] [address] [address] Natasha Celeste Potassium [Moles/Vol] 4.1 mmol/L Normal 3.5-5.1 [facility] Comment on above: Performed By: #### V ITAD, IRON #### [facility] Laboratory [address] [place] [address] Dr. Natasha Celeste Protein [Mass/Vol] 7.7 g/dL Normal 6.4-8.2 [facility] Comment on above: Performed By: #### V ITAD, IRON #### [facility] Laboratory [address] [place] [address] Dr. Natasha Celeste Sodium [Moles/Vol] 141 mmol/L Normal 136-145 [facility] Comment on above: Performed By: #### V ITAD, IRON #### [facility] Laboratory [address] [place] [address] Dr. Natasha Celeste Urea nitrogen [Mass/Vol] 19.0 mg/dL Critically high 7.0-18.0 [facility] Comment on above: Performed By: #### V ITAD, IRON #### [facility] Laboratory [address] [place] [address] Dr. Natasha Celeste Urea nitrogen/Creatinin e [Mass ratio] 27.5 mg/mg Normal [facility] Comment on above: Performed By: #### V ITLUIS, IRON #### [facility] Laboratory [address] [place] [address] Dr. Ntaasha Celeste TSHon 05-23-2022 TSH 0.405 uIU/mL Normal 0.358-3.740 [facility] Comment on above: Performed By: #### T 7, TSH, CMP, LIPID #### [facility] Laboratory [address] [place] [address] Dr. Natasha Celeste VITAMIN D 25 OHon 05-23-2022 VIT D 25-OH 37.2 ng/mL Normal [facility] Comment on above: Performed By: #### V BRANDO, IRON #### [facility] Laboratory [address] [place] [address] Dr. Natasha Celeste VIT D RANGES SEE BELOW Normal [facility] Comment on above: Result Comment: <20 ng/mL Vit D deficient 20 - <30 ng/mL Vit D insufficient 30 - 100 ng/mL Vit D sufficient >100 ng/mL Potential Toxicity Performed By: #### V ITAD, IRON #### [facility] Laboratory [address] [place] [address] Dr. Natasha Celeste Office Visit (Allergy/Immuno logy)on 01-10-2022 Follow-up visit Diagnoses/Problems Assessed Moderate persistent asthma (493.90) (J45.40) Allergies (995.3) (T78.40XA) pollen and pets immunocap 11/2021 Orders SOB (shortness of breath) on exertion Renew: Fluticasone-Salmeterol 250-50 MCG/ACT Inhalation Aerosol Powder Breath Activated (Advair Diskus); USE 1 INHALATION TWICE A DAY Patient Discussion/Summary Follow up 6 months Provider Impressions Moderate asthma controlled Allergy to pets and pollen controlled Chief Complaint F/u for SOB and allergies History of Present Lksjtce89 yo with history of allergy and asthma. Symptoms are improved on Advair 250 BID with rare albuterol use. She has grass, tree and ragweed as well as pet allergy on immunocap 12/13/21. Review of Systems Constitutional: no fever, no chills and not feeling tired. Eyes: eyes not red and no itching of the eyes. ENT: no hearing loss, no nosebleeds, no nasal discharge, no sore throat and no hoarseness. Cardiovascular: no chest pain and no palpitations. Respiratory: no shortness of breath, no wheezing, no cough and no shortness of breath during exertion. Gastrointestinal: no abdominal pain, no constipation, no heartburn, no diarrhea and no vomiting. Integumentary: no dry skin. Psychiatric: no anxiety and no depression. All other systems have been reviewed and are negative for complaint. Constitutional: no fever and normal activity. Integumentary: no rashes and no itching. Eyes: no discharge from the eyes and no itching of the eyes. ENT: no sneezing jags, no nasal congestion and no rhinorrhea. Respiratory: no difficulty breathing and no cough. Gastrointestinal: no vomiting and no diarrhea. Psychiatric: no change in behavior. All other systems have been reviewed and are negative for complaint. Active Problems Problems Allergies (995.3) (T78.40XA) pollen and pets immunocap 11/2021 Itching (698.9) (L29.9) SOB (shortness of breath) on exertion (786.05) (R06.02) Surgical History Problems History of Appendectomy History of Bladder surgery History of Breast biopsy excisional History of Cataract surgery History of Flexor tendon repair History of Hip replacement History of Hysterectomy vaginal Family History Mother Family history of arthritis (V17.7) (Z82.61) Family history of hypertension (V17.49) (Z82.49) Father Family history of Social History Problems Cigarette smoker (305.1) (F17.210) Allergies Medication Penicillins Allergy; Itching; Recorded By: Spring Storm; 12/12/2021 10:16:59 AM sulfa Allergy; Itching; Recorded By: Spring Storm; 12/12/2021 10:16:59 AM Current Meds Medication NameInstruction Acyclovir 800 MG Oral TabletTAKE 1 TABLET BY MOUTH DAILY Albuterol Sulfate HFA 108 (90 Base) MCG/ACT Inhalation Aerosol SolutionINHALE 2 PUFFS FOUR TIMES DAILY NEEDED ALPRAZolam 0.25 MG Oral TabletTAKE 1 TABLET BY MOUTH DAILY NEEDED MUST LAST 30 DAYS Atrovent HFA 17 MCG/ACT Inhalation Aerosol SolutionINHALE 2 PUFFS FOUR TIMES DAILY Benadryl 25 MG TABSTAKE 1 TABLET EVERY 4 HOURS NEEDED. Carvedilol 6.25 MG Oral TabletTake 1 tablet by mouth twice a day Celecoxib 200 MG Oral CapsuleTAKE 1 CAPSULE BY MOUTH DAILY Clindamycin HCl - 150 MG Oral CapsuleTAKE 4 CAPSULES BY MOUTH ONE HOUR PRIOR TO DENTAL APPOINTMENT. Estradiol 0.5 MG Oral TabletTAKE 1 TABLET BY MOUTH DAILY Estradiol 0.5 MG Oral TabletTAKE 1 TABLET DAILY. Fluticasone-Salmeterol 250-50 MCG/ACT Inhalation Aerosol Powder Breath ActivatedUSE 1 INHALATION TWICE A DAY Ibuprofen 800 MG Oral TabletTAKE 1 TABLET BY MOUTH FOUR TIMES DAILY NEEDED FOR PAIN Levothyroxine Sodium 50 MCG Oral TabletTAKE 1 TABLET DAILY. Lisinopril 10 MG Oral TabletTAKE 1 TABLET BY MOUTH DAILY Omeprazole 20 MG Oral Capsule Delayed ReleaseTAKE 1 CAPSULE BY MOUTH DAILY Ondansetron 4 MG Oral Tablet DisintegratingDISSOLVE 1 (ONE) TABLET on tongue FOUR TIMES DAILY NEEDED Simvastatin 20 MG Oral TabletTAKE 1 TABLET BY MOUTH DAILY Zyrtec-D 5-120 MG [id number] 1 TABLET TWICE DAILY NEEDED. Vitals Vital Signs Recorded: [id number] 01:39PM Ezjvbafvrot37.1 F, Temporal Heart Rate88 Ompixblfbpn84 Yrnjuyqq002 Zkvizqyxe44 Wimxca981 lb BMI Zruylmgkmx69.3 kg/m2 BSA Calculated1.92 Tobacco Usea) Yes O2 Retaqowwml61, RA Physical Exam Constitutional General appearance: Well developed, well nourished, no acute distress. Head and Face Palpation of the face and sinuses: No sinus tenderness, normal cephalic, atraumatic. Eyes Inspection of the conjunctiva and lids: Normal, no injection, no shiners. Ears, Nose, Mouth, and Throat Inspection of the nasal mucosa, septum, and turbinates: Normal without edema or erythema. Inspection of lips, teeth, and gums: Normal, good dentition, no polyps. Examination of the oropharynx: Normal with no erythema, edema, exudate or lesions, no postnasal drainage. Neck Examination of the neck: Normal, supple, symmetric, trachea midline, no masses. Pulmo (more content not included)... Normal Uplike Tobacco Screening.on 022 Tobacco use status CPHS a) Yes [id number] carolyne Lara 201B Work Phone: RESPIRATORY ALLERGY PROFILE, IGE,ICon 12-13-2021 ALTERNARIA,IGE,IC 4.04 KU/L Abnormal <0.35 [facility] Comment on above: Result Comment: SEE IMMUNOCAP INTERP.IGE Performed By: #### I CPA2 #### [facility] [address] [place] [address] JOSE C,WHITE,IGE,IC 0.15 KU/L Normal <0.35 [facility] Comment on above: Result Comment: SEE IMMUNOCAP INTERP.IGE Performed By: #### I CPA2 #### [facility] [address] [place] [address] ASPERGILUS,IGE,IC 0.30 KU/L Normal <0.35 [facility] Comment on above: Result Comment: SEE IMMUNOCAP INTERP.IGE Performed By: #### I CPA2 #### [facility] [address] [place] [address] BIRCH,IGE,IC <0.10 Normal <0.35 [facility] Comment on above: Result Comment: SEE IMMUNOCAP INTERP.IGE Performed By: #### I CPA2 #### [facility] [id number] [place] [id number] BOX ELDER,IGE,IC 0.56 KU/L Abnormal <0.35 [facility] Comment on above: Result Comment: SEE IMMUNOCAP INTERP.IGE Performed By: #### I CPA2 #### [place] [id number] [place] [address] CAT EPI./DANDER,IGE,IC 1.97 KU/L Abnormal <0.35 [facility] Comment on above: Result Comment: SEE IMMUNOCAP INTERP.IGE Performed By: #### I CPA2 #### [facility] [address] [place] [address] CEDAR MTN/JUNIPER,IGE,IC 0.16 KU/L Normal <0.35 [facility] Comment on above: Result Comment: SEE IMMUNOCAP INTERP.IGE Performed By: #### I CPA2 #### [facility] [address] [place] [address] CLADOSPORIUM HERBARUM IGE,IC 0.38 KU/L Abnormal <0.35 [facility] Comment on above: Result Comment: SEE IMMUNOCAP INTERP.IGE Performed By: #### I CPA2 #### [facility] [address] [place] [id number] COCKROACH,IGE,IC <0.10 Normal <0.35 [facility] Comment on above: Result Comment: SEE IMMUNOCAP INTERP.IGE Performed By: #### I CPA2 #### [facility] [address] [place] [id number] COTTONWOOD,IGE,IC <0.10 Normal <0.35 [facility] Comment on above: Result Comment: SEE IMMUNOCAP INTERP.IGE Performed By: #### I CPA2 #### [facility] [address] [place] [id number] D.FARINA,IGE,IC <0.10 Normal <0.35 [facility] Comment on above: Result Comment: SEE IMMUNOCAP INTERP.IGE Performed By: #### I CPA2 #### [facility] [address] [place] [id number] D.PTERONYSSINUS,IG E,IC <0.10 Normal <0.35 [facility] Comment on above: Result Comment: SEE IMMUNOCAP INTERP.IGE Performed By: #### I CPA2 #### [facility] [address] [place] [address] DOG DANDER IGE,IC 3.91 KU/L Abnormal <0.35 [facility] Comment on above: Result Comment: SEE IMMUNOCAP INTERP.IGE Performed By: #### I CPA2 #### [facility] [address] [place] [address] ELM,IGE,IC 0.11 KU/L Normal <0.35 [facility] Comment on above: Result Comment: SEE IMMUNOCAP INTERP.IGE Performed By: #### I CPA2 #### [facility] [address] [place] [id number] ESTONIAN PLANTAIN,IGE,IC <0.10 Normal <0.35 [facility] Comment on above: Result Comment: SEE IMMUNOCAP INTERP.IGE Performed By: #### I CPA2 #### [facility] [address] [place] [id number] GRASS,BERMUDA,IGE, IC <0.10 Normal <0.35 [facility] Comment on above: Result Comment: SEE IMMUNOCAP INTERP.IGE Performed By: #### I CPA2 #### [facility] [address] [place] [address] GRASS,MEERA,IGE, IC <0.10 Normal <0.35 [facility] Comment on above: Result Comment: SEE IMMUNOCAP INTERP.IGE Performed By: #### I CPA2 #### [facility] [address] [place] [id number] GRASS,[place] BLUE,IGE,IC 0.71 KU/L Abnormal <0.35 [facility] Comment on above: Result Comment: SEE IMMUNOCAP INTERP.IGE Performed By: #### I CPA2 #### [facility] [address] [place] [id number] GRASS,TIN,IGE,IC 0.70 KU/L Abnormal <0.35 [facility] Comment on above: Result Comment: SEE IMMUNOCAP INTERP.IGE Performed By: #### I CPA2 #### [facility] [address] [place] [id number] IMMUNOCAP IGE 238.0 KU/L High 0.0 - 214.0 [facility] Comment on above: Result Comment: Note : Omalizumab (Xolair, Genentech; humanized IgG1 antihuman IgE Fc) treatment does not significantly interfere with the accuracy of total IgE on the ImmunoCAP (WIB) platform. J Allergy Clin Immunol 2006;117:759-66). Allergens, parasitic diseases, smoking, and alcohol consumption have been reported to increase levels of total IgE in serum. Performed By: #### I CPA2 #### [facility] [address] [place] [address] LAMBS QUARTERS,IGE,IC 0.11 KU/L Normal <0.35 [facility] Comment on above: Result Comment: SEE IMMUNOCAP INTERP.IGE Performed By: #### I CPA2 #### [facility] [address] [place] [address] MULBERRY, WHITE, IGE,IC <0.10 Normal <0.35 [facility] Comment on above: Result Comment: SEE IMMUNOCAP INTERP.IGE Performed By: #### I CPA2 #### [facility] [address] [place] [address] OAK,IGE,IC <0.10 Normal <0.35 [facility] Comment on above: Result Comment: SEE IMMUNOCAP INTERP.IGE Performed By: #### I CPA2 #### [facility] [address] [place] [address] PECAN HICKORY,IGE,IC 0.17 KU/L Normal <0.35 [facility] Comment on above: Result Comment: SEE IMMUNOCAP INTERP.IGE Performed By: #### I CPA2 #### [facility] [address] [place] [address] PENICILLIUM,IGE,IC <0.10 Normal <0.35 [facility] Comment on above: Result Comment: SEE IMMUNOCAP INTERP.IGE Performed By: #### I CPA2 #### [facility] [address] [place] [address] PIGWEED,IGE,IC 0.17 KU/L Normal <0.35 [facility] Comment on above: Result Comment: SEE IMMUNOCAP INTERP.IGE Performed By: #### I CPA2 #### [place] [address] [place] [address] RAGWEED,SHORT,IGE, IC 0.88 KU/L Abnormal <0.35 [facility] Comment on above: Result Comment: SEE IMMUNOCAP INTERP.IGE Performed By: #### I CPA2 #### [facility] [address] [place] [id number] YEMENI THISTLE,IGE,IC 0.44 KU/L Abnormal <0.35 [facility] Comment on above: Result Comment: SEE IMMUNOCAP INTERP.IGE Performed By: #### I CPA2 #### [facility] [address] [place] [id number] SHEEP SORREL,IGE,IC <0.10 Normal <0.35 [facility] Comment on above: Result Comment: SEE IMMUNOCAP INTERP.IGE Performed By: #### I CPA2 #### [facility] [address] [place] [id number] SYCAMORE,MAPLE LEAF IGE,IC 0.12 KU/L Normal <0.35 [facility] Comment on above: Result Comment: SEE IMMUNOCAP INTERP.IGE Performed By: #### I CPA2 #### [facility] [address] [place] [id number] WALNUT TREE,IGE,IC 0.13 KU/L Normal <0.35 [facility] Comment on above: Result Comment: SEE IMMUNOCAP INTERP.IGE Performed By: #### I CPA2 #### [facility] [address] [place] [address] Laboratory - Allergyon 12-12 A. alternata IgE Qn (S) 4.04 {KU/L} Abnormal <0.35 DT-KOOW-[place] [address] Work Phone: Comment on above: SEE IMMUNOCAP INTERP .IGE A. fumigatus IgE Qn (S) 0.30 {KU/L} <0.35 JZ-LRPB-Vkxg [place] [address] Work Phone: Comment on above: SEE IMMUNOCAP INTERP .IGE Mauritian house dust mite IgE Qn (S) <0.10 <0.35 SB-JBTW-Lpsq y [place] [address] Work Phone: Comment on above: SEE IMMUNOCAP INTERP .IGE Mauritian Metaline IgE Qn (S) 0.12 {KU/L} <0.35 CF-XFSX-Gzwe [place] [address] Work Phone: Comment on above: SEE IMMUNOCAP INTERP .IGE Berm[place] grass IgE Qn (S) <0.10 <0.35 IL-AHZN-Imkm [place] [address] Work Phone: Comment on above: SEE IMMUNOCAP INTERP .IGE Boxelder IgE Qn (S) 0.56 {KU/L} Abnormal <0.35 HK-LDJD-Rwmb [place] [address] Work Phone: Comment on above: SEE IMMUNOCAP INTERP .IGE C. herbarum IgE Qn (S) 0.38 {KU/L} Abnormal <0.35 TP-QYAG-Hwgh [place] [address] Work Phone: Comment on above: SEE IMMUNOCAP INTERP .IGE [place] [facility] IgE Qn (S) 0.13 {KU/L} <0.35 WF-SXPO-Vjfd [place] [address] Work Phone: Comment on above: SEE IMMUNOCAP INTERP .IGE Cat dander IgE Qn (S) 1.97 {KU/L} Abnormal <0.35 YP-WZTL-Nqtx [place] [address] Work Phone: Comment on above: SEE IMMUNOCAP INTERP .IGE Cockroach IgE Qn (S) <0.10 <0.35 AX-WUYT-Aiwl [place] [address] Work Phone: Comment on above: SEE IMMUNOCAP INTERP .IGE Common Pigweed IgE Qn (S) 0.17 {KU/L} <0.35 HV-ULGS-Uloz [place] [address] Work Phone: Comment on above: SEE IMMUNOCAP INTERP .IGE [place] IgE Qn (S) <0.10 <0.35 OG-UCCC-Ocgm [place] [address] Work Phone: Comment on above: SEE IMMUNOCAP INTERP .IGE Dog dander IgE Qn (S) 3.91 {KU/L} Abnormal <0.35 EX-WQWD-Task [place] [address] Work Phone: Comment on above: SEE IMMUNOCAP INTERP .IGE German plantain IgE Qn (S) <0.10 <0.35 SR-RFVN-Wcxz [place] [address] Work Phone: Comment on above: SEE IMMUNOCAP INTERP .IGE house dust mite IgE Qn (S) <0.10 <0.35 WT-YHIL-Wmhm [place] [address] Work Phone: Comment on above: SEE IMMUNOCAP INTERP .IGE Goosefoot IgE Qn (S) 0.11 {KU/L} <0.35 KX-ZNJX-Kdgj [place] [address] Work Phone: Comment on above: SEE IMMUNOCAP INTERP .IGE Meera grass IgE Qn (S) <0.10 <0.35 EW-CBUA-Yrbz [place] [address] Work Phone: Comment on above: SEE IMMUNOCAP INTERP .IGE [place] blue grass IgE Qn (S) 0.71 {KU/L} Abnormal <0.35 FJ-YGMV-Fsfi [place] B Work Phone: Comment on above: SEE IMMUNOCAP INTERP .IGE Mountain Juniper IgE Qn (S) 0.16 {KU/L} <0.35 VP-QIZQ-Kqww [place] [address] Work Phone: Comment on above: SEE IMMUNOCAP INTERP .IGE P. notatum IgE Qn (S) <0.10 <0.35 UX-BLCN-Pvpm y [place] [address] Work Phone: Comment on above: SEE IMMUNOCAP INTERP .IGE Pecan or [place] Tree IgE Qn (S) 0.17 {KU/L} <0.35 UM-XVLG-Hgrs [place] [address] Work Phone: Comment on above: SEE IMMUNOCAP INTERP .IGE Saltwort IgE Qn (S) 0.44 {KU/L} Abnormal <0.35 QA-RZLU-Pyml [place] [address] Work Phone: Comment on above: SEE IMMUNOCAP INTERP .IGE Sheep Ladd[place] IgE Qn (S) <0.10 <0.35 [facility] [address] Work Phone: Comment on above: SEE IMMUNOCAP INTERP .IGE Silver Birch IgE Qn (S) <0.10 <0.35 [facility] [address] Work Phone: Comment on above: SEE IMMUNOCAP INTERP .IGE Reji IgG Qn (S) 0.70 {KU/L} Abnormal <0.35 -[facility] B Work Phone: Comment on above: SEE IMMUNOCAP INTERP .IGE Total IgE RAST Qn (S) 238.0 {KU/L} above high threshold See Below [facility] [address] Work Phone: Comment on above: Reference Range: 0.0 - 214.0 Note: Omalizumab (Xolair, Dianrong.com; humanized IgG1 antihuman IgE Fc) treatment does not significantly interfere with the accuracy of total IgE on the ImmunoCAP (WIB) platform. J Allergy Clin Immunol 2006;117:759-66). Allergens, parasitic diseases, smoking, and alcohol consumption have been reported to increase levels of total IgE in serum. White Jose C IgE Qn (S) 0.15 {KU/L} <0.35 [facility] [address] Work Phone: Comment on above: SEE IMMUNOCAP INTERP .IGE White Elm IgE Qn (S) 0.11 {KU/L} <0.35 [facility] [address] Work Phone: Comment on above: SEE IMMUNOCAP INTERP .IGE White mulberry IgE Qn (S) <0.10 <0.35 [facility] [address] Work Phone: Comment on above: SEE IMMUNOCAP INTERP .IGE [place] IgE Qn (S) <0.10 <0.35 [facility] [address] Work Phone: Comment on above: SEE IMMUNOCAP INTERP .IGE No Panel Informationon 12-12 SEE COMMENT LS-NBXA-LsmiDuetto Work Phone: Comment on above: REFERENCE RANGE (IMM UNOCAP) IGE KU/L CLASS INTERPRETATION < 0.10 0 BELOW DETECTION 0.10- 0.34 0/1 EQUIVOCAL 0.35- 0.69 1 LOW POSITIVE 0.70- 3.49 2 MODERATE POSITIVE 3.50- 17.49 3 HIGH NXNGQHDN44.50- 49 4 VERY HIGH XXZHETON57 - 99 5 VERY HIGH POSITIVE >100 6 VERY HIGH POSITIVE 0.88 {KU/L} Abnormal <0.35 PJ-PLKR-KkfiDuetto Work Phone: Comment on above: SEE IMMUNOCAP INTERP .IGE Office Visit (Allergy/Immuno logy)on 12-12-2021 Follow-up visit Diagnoses/Problems Assessed Allergies (995.3) (T78.40XA) Itching (698.9) (L29.9) SOB (shortness of breath) on exertion (786.05) (R06.02) Orders Allergies Respiratory Allergy Profile Region 5, IC; Status:Active; Requested for:[id number]; SOB (shortness of breath) on exertion Start: Fluticasone-Salmeterol 250-50 MCG/ACT Inhalation Aerosol Powder Breath Activated (Advair Diskus); USE 1 INHALATION TWICE A DAY Administered: Albuterol Sulfate (2.5 MG/3ML) 0.083% Inhalation Nebulization Solution Patient Discussion/Summary Obtain labs and I will results Advair twice a day. Provider Impressions 66 yo with a history of allergy was on a brief course of immunotherapy 20 yrs ago, with increased itch, sob and frequent albuterol use. She is an occasional smoker and has a history of daily smoking. Lung function is reduced today so will plan to start daily inhaler and obtain allergy labs. I will call results of labs. Chief Complaint New patient here to discuss allergies, referred by PCP, Dr. Kory Ambriz, in [place], [place] History of Present IllnessPt here to discuss allergy symptoms. Patient has seen an wet pour supervisor in the past, last tested in 2010. Patient states seasonal and environmental allergies. Patient t is on Zyrtec-D and Benadryl as needed. Takes Zyrtec D in the morning, last this a.m. She had a shot in September for her allergy which she thinks was a steroid. She did have her Pneumovax a couple months ago. Patient did see an wet pour supervisor in early 2000. Was on shots 2-3 yrs. She felt it helped. Never diagnosed with asthma Smokes occasionally. She did smoke regular in the past. Uses daily albuterol. She is worried about dog allergy. She has one dog. Patient is retired as a nurse. She worked at [employer]. Moved into a new home a few years ago. Had Covid in 2019, and still feels she has some residula taste and smell issues. Review of Systems Constitutional: no fever, no chills and not feeling tired. Eyes: eyes not red and no itching of the eyes. ENT: no hearing loss, no nosebleeds, no nasal discharge, no sore throat and no hoarseness. Cardiovascular: no chest pain and no palpitations. Respiratory: shortness of breath, but no wheezing, no cough and no shortness of breath during exertion. Gastrointestinal: no abdominal pain, no constipation, no heartburn, no diarrhea and no vomiting. Integumentary: itching, but no dry skin. Psychiatric: no anxiety and no depression. All other systems have been reviewed and are negative for complaint. Constitutional: no fever and normal activity. Integumentary: no rashes and no itching. Eyes: no discharge from the eyes and no itching of the eyes. ENT: no sneezing jags, no nasal congestion and no rhinorrhea. Respiratory: no difficulty breathing and no cough. Gastrointestinal: no vomiting and no diarrhea. Psychiatric: no change in behavior. All other systems have been reviewed and are negative for complaint. Surgical History Problems History of Appendectomy History of Bladder surgery History of Breast biopsy excisional History of Cataract surgery History of Flexor tendon repair History of Hip replacement History of Hysterectomy vaginal Family History Mother Family history of arthritis (V17.7) (Z82.61) Family history of hypertension (V17.49) (Z82.49) Father Family history of Social History Problems Cigarette smoker (305.1) (F17.210) Allergies Medication Penicillins Allergy; Itching; Recorded By: Spring Storm; 12/12/2021 10:16:59 AM sulfa Allergy; Itching; Recorded By: Spring Storm; 12/12/2021 10:16:59 AM Current Meds Medication NameInstruction Benadryl 25 MG TABSTAKE 1 TABLET EVERY 4 HOURS NEEDED. Estradiol 0.5 MG Oral TabletTAKE 1 TABLET DAILY. Zyrtec-D 5-120 MG XA17ISIO 1 TABLET TWICE DAILY NEEDED. Vitals Vital Signs Recorded: 12Dec2021 10:13AM Ejmkdlskwej57.1 F, Temporal Heart Rate89 Edxdgxlifzm42 Rnanuhxf621 Lxiyrvooa32 Height5 ft 8 in Oplxkv772 lb BMI Frvosjcook50.3 kg/m2 BSA Calculated1.92 Tobacco Usea) Yes Patient encouraged to stop using tobacco productsYes O2 Oxfryjyjug99, RA Physical Exam Constitutional General appearance: Well developed, well nourished, no acute distress. Head and Face Palpation of the face and sinuses: No sinus tenderness, normal cephalic, atraumatic. Eyes Inspection of the conjunctiva and lids: Normal, no injection, no shiners. Ears, Nose, Mouth, and Throat Inspection of the nasal mucosa, septum, and turbinates: Normal without edema or erythema. Inspection of lips, teeth, and gums: Normal, good dentition, no polyps. Examination of the oropharynx: Normal with no erythema, edema, exudate or lesions, no postnasal drainage. Neck Examination of the neck: Normal, supple, symmetric, trachea midline, no masses. Pulmonary Assessment of respiratory effort: No increased work of breathing or signs of respiratory distress. Auscultation of bigg (more content not included)... Normal U[place]ike RESPIRATORY ALLERGY PROFILE, IGE,ICon 12-12-2021 IMMUNOCAP INTERP.IGE SEE COMMENT Normal [facility] Comment on above: Result Comment: REFE RENCE RANGE (IMMUNOCAP) IGE KU/L CLASS INTERPRETATION < 0.10 0 BELOW DETECTION 0.10- 0.34 0/1 EQUIVOCAL 0.35- 0.69 1 LOW POSITIVE 0.70- 3.49 2 MODERATE POSITIVE 3.50- 17.49 3 HIGH POSITIVE 17.50- 49 4 VERY HIGH POSITIVE 50 - 99 5 VERY HIGH POSITIVE >100 6 VERY HIGH POSITIVE Performed By: #### I CPA2 #### [facility] [address] [place] [address] Tobacco Screening.on 022 Tobacco use status CPHS a) Yes LO-BCTM-Tfzu [place] [address] Work Phone: Tobacco Screening. Yes MP-WSP C- y [place] [address] Work Phone: MG MAMM SCREEN 3D DEREK CADon 09-30-2021 MG MAMM SCREEN 3D DEREK CAD Patient: ROBBIE KEMP Exam Date: 09/30/2021 : 1955 Gender:F Ordering : DR. YISSEL CARDOZO D.O. Admission #: [id number] Family : Order #: [id number] CLICK HERE TO VIEW EXAM RADIOLOGY REPORT PROCEDURE: MAMMOGRAM SCREENING 3D BILATERAL CAD COMPARISON: MG MAMM SCREEN 3D DEREK CAD, 09/22/2020. MG MAMM SCREEN DEREK W CAD, 08/29/2019. INDICATIONS: Screening mammography Calculator Name NCI Breast Cancer Risk Assessment Tool 5 Year Breast Cancer Risk 2.20% Lifetime Breast Cancer Risk 8.30% Personal Breast Cancer No Personal Ovarian Cancer No Treatments None Family Cancers Cousin-maternal with breast cancer at age 50. LOCATION: [facility] BREAST COMPOSITION: Heterogeneously dense,which may obscure small masses. FINDINGS: DIAGNOSTIC CATEGORY 2--BENIGN FINDING. NO CHANGE FROM COMPARISON. Scattered benign-appearing calcifications are present. Scattered benign-appearing lymph nodes are present. RIGHT BREAST: No significant suspicious finding. LEFT BREAST: No significant suspicious finding. Stable micro clip marker upper outer quadrant, anterior to mid breast RECOMMENDATIONS: ROUTINE MAMMOGRAM AND CLINICAL EVALUATION IN 12 MONTHS. PLEASE NOTE: A NORMAL MAMMOGRAM DOES NOT EXCLUDE THE POSSIBILITY OF BREAST CANCER. A CLINICALLY SUSPICIOUS PALPABLE LUMP SHOULD BE BIOPSIED. Dictated by: Sae Lopez MD on 09/30/2021 at 12:03 Approved by: Sae Lopez MD on 09/30/2021 at 12:05 Normal [facility] [place] XR hip LT min 2V(w/wo pelvis )*on 07-06-2021 XR hip LT min 2V(w/wo pelvis)* [facility] [place] [address] [place] [address] XRay Report Signed Patient: Robbie Kemp MR#: [id number] : 1955 Acct:[id number] Age/Sex: 66 / F ADM Date: 07/06/21 [place] [facility] [place]: Type: REG CLI Attending Dr: Arvind Marie DO Ordering Provider: Arvind Marie DO Date of Service: 07/06/21 XR/XR hip LT min 2V(w/wo pelvis)*: History of arthroplasty of left hip Copies to: Arvind Marie DO LEFT HIP - 2 views: CLINICAL HISTORY: Follow-up left hip replacement COMPARISON: 01/11/2021 AP and frog-lateral views were obtained. A hip prosthesis is again visualized. The hardware appears intact and unchanged from the prior. There is no developing fracture or dislocation. There are no significant soft tissue abnormalities. XR/XR hip LT min 2V(w/wo pelvis)* IMPRESSION: STABLE APPEARANCE OF HIP REPLACEMENT. Impression dictated by: Yecenia Walker M.D.07/06/2021 3:58 PM Dictation Location: [place] [address] Transcribed By: [facility] 07/06/21 1558 Dictated By: Yecenia Walker MD 07/06/21 1557 Signed By: 07/06/21 1558 Normal [facility] XR foot RT min 3V*on 022 XR foot RT min 3V* [facility] [place] [address] XRay Report Signed Patient: Robbie Kemp MR#: [id number] : 1955 Acct:[id number] Age/Sex: 66 / F ADM Date: 06/07/21 [place] [facility] [place]: Type: REG CLI Attending Dr: Benja Beltran DPM, MS Ordering Provider: Benja Beltran DPM, MS Date of Service: 06/07/21 XR/XR foot RT min 3V*: M79.671 Copies to: Benja Beltran DPM, MS 3 viewsRIGHT foot plain film COMPARISON:None HISTORY:RIGHT foot pain for months. No fracture, dislocation or focal soft tissue abnormality seen. Pes planus deformity identified. Superior spurring of the talonavicular joint present. XR/XR foot RT min 3V* IMPRESSION:Degenerative talonavicular superior spurring. Pes planus deformity. Impression dictated by: Tripp Johnson M.D.06/07/2021 1:29 PM Dictation Location: [place] [address] Transcribed By: [facility] 06/07/21 132 Dictated By: Tripp Johnson DO 06/07/211322 Signed By: 06/07/21 132 Normal [facility] B-Type Natriuretic Peptideon 01-25-2021 Natriuretic peptide B (Bld) [Mass/Vol] 66.0 pg/mL Normal 5-100 [facility] Comment on above: Result Comment: PERF ORMED BY: [facility] [address] [place] [id number] PATHOLOGIST DENTAL MECHANIC SHIRA PEREIRA M.D. Performed By: #### B WHARF LABOURER, HS TROP, HEPATIC, BMP, CBC, PT, PTT ####[place] [address] [address] Basic Metabolic Panelon 10-0 Calcium [Mass/Vol] 9.5 mg/dL Normal 8.2-10.2 [facility] Comment on above: Performed By: #### B WHARF LABOURER, HS TROP, HEPATIC, BMP, CBC, PT, PTT ####[place] [address] [place] [address] [facility] Chloride [Moles/Vol] 99 mmol/L Normal 95-114 [facility] Comment on above: Performed By: #### B WHARF LABOURER, HS TROP, HEPATIC, BMP, CBC, PT, PTT ####[place] [address] [place] [address] [facility] CO2 [Moles/Vol] 24.7 mmol/L Normal 22.0-30.0 [facility] Comment on above: Performed By: #### B WHARF LABOURER, HS TROP, HEPATIC, BMP, CBC, PT, PTT ####[address] [address] [facility] Creatinine [Mass/Vol] 0.73 mg/dL Normal 0.44-1.03 [facility] Comment on above: Performed By: #### B WHARF LABOURER, HS TROP, HEPATIC, BMP, CBC, PT, PTT ####[place] [address] [place] [id number] [facility] Creatinine Clr Calc Pharmacy 78.54 [facility] Comment on above: Result Comment: PERF ORMED BY: [facility] [address] [place] [address] PATHOLOGIST DENTAL MECHANIC SHIRA PEREIRA M.D. Performed By: #### B WHARF LABOURER, HS TROP, HEPATIC, BMP, CBC, PT, PTT ####[place] [address] [place] [id number] [facility] Estimated GFR ( Drea > 60 [facility] Comment on above: Result Comment: GFR estimated reference range: According to KDOQI guidelines, <60 ml/min/1.73m2 is sufficient to diagnose a patient with chronic kidney disease. Performed By: #### B WHARF LABOURER, HS TROP, HEPATIC, BMP, CBC, PT, PTT ####[address] Estimated GFR (Non- Am > 60 [facility] Comment on above: Performed By: #### B WHARF LABOURER, HS TROP, HEPATIC, BMP, CBC, PT, PTT ####[place] [id number] [facility] Glucose [Mass/Vol] 95 mg/dL Normal 70-100 [facility] Comment on above: Result Comment: [place]nard Glucose Reference Range is dependent on time and content of last meal. Glucose of more than 200 mg/dL in a nonstressed, ambulatory subject supports the diagnosis of Diabetes Mellitus. ADA recommended reference range Performed By: #### B WHARF LABOURER, HS TROP, HEPATIC, BMP, CBC, PT, PTT ####[place] [id number] [facility] Potassium [Moles/Vol] 4.6 mmol/L Normal 3.5-5.1 [facility] Comment on above: Performed By: #### B WHARF LABOURER, HS TROP, HEPATIC, BMP, CBC, PT, PTT ####[place] [id number] [facility] Sodium [Moles/Vol] 134 mmol/L Low 136-146 [facility] Comment on above: Performed By: #### B WHARF LABOURER, HS TROP, HEPATIC, BMP, CBC, PT, PTT ####[facility] Urea nitrogen [Mass/Vol] 9 mg/dL Normal 9-23 [facility] Comment on above: Performed By: #### B WHARF LABOURER, HS TROP, HEPATIC, BMP, CBC, PT, PTT ####[facility] Complete Blood Count Auto Di ffon 01-25-2021 Basophils (Bld) [#/Vol] 0.1 10*3/uL Normal 0.0-0.2 [facility] Comment on above: Result Comment: PERF ORMED BY: [place] [id number] PATHOLOGIST DENTAL MECHANIC SHIRA PEREIRA M.D. Performed By: #### B WHARF LABOURER, HS TROP, HEPATIC, BMP, CBC, PT, PTT #### [address] Basophils/100 WBC (Bld) 2.4 % Normal . [facility] Comment on above: Performed By: #### B WHARF LABOURER, HS TROP, HEPATIC, BMP, CBC, PT, PTT #### [facility] [address] [place] [address] Eosinophils (Bld) [#/Vol] 0.2 10*3/uL Normal 0.0-0.45 [facility] Comment on above: Performed By: #### B WHARF LABOURER, HS TROP, HEPATIC, BMP, CBC, PT, PTT #### [address] Eosinophils/100 WBC (Bld) 4.7 % Normal . [facility] Comment on above: Performed By: #### B WHARF LABOURER, HS TROP, HEPATIC, BMP, CBC, PT, PTT #### [address] Erythrocyte distribution width (RBC) [Ratio] 12.4 % Normal 11.9-15.3 [facility] Comment on above: Performed By: #### B WHARF LABOURER, HS TROP, HEPATIC, BMP, CBC, PT, PTT #### [address] Hematocrit (Bld) [Volume fraction] 29.7 % Low 34.0-46.4 [facility] Comment on above: Performed By: #### B WHARF LABOURER, HS TROP, HEPATIC, BMP, CBC, PT, PTT #### [address] Hemoglobin (Bld) [Mass/Vol] 10.3 g/dL Low 11.8-15.4 [facility] Comment on above: Performed By: #### B WHARF LABOURER, HS TROP, HEPATIC, BMP, CBC, PT, PTT #### [address] Lymphocytes (Bld) [#/Vol] 1.3 10*3/uL Normal 1.00-4.8 [facility] Comment on above: Performed By: #### B WHARF LABOURER, HS TROP, HEPATIC, BMP, CBC, PT, PTT #### [address] Lymphocytes/100 WBC (Bld) 25.3 % Normal . [facility] Comment on above: Performed By: #### B WHARF LABOURER, HS TROP, HEPATIC, BMP, CBC, PT, PTT #### [address] MCH (RBC) [Entitic mass] 35.5 pg High 24.7-34.3 [facility] Comment on above: Performed By: #### B WHARF LABOURER, HS TROP, HEPATIC, BMP, CBC, PT, PTT #### [address] MCV (RBC) [Entitic vol] 102.2 fL High 80-100 [facility] Comment on above: Performed By: #### B WHARF LABOURER, HS TROP, HEPATIC, BMP, CBC, PT, PTT #### [address] Mean Corpuscular HGB Conc 34.7 g/dL Normal 32.0-35.0 [facility] Comment on above: Performed By: #### B WHARF LABOURER, HS TROP, HEPATIC, BMP, CBC, PT, PTT #### [facility] [address] [place] [address] [place] Monocytes (Bld) [#/Vol] 0.4 10*3/uL Normal 0.0-0.8 [facility] Comment on above: Performed By: #### B WHARF LABOURER, HS TROP, HEPATIC, BMP, CBC, PT, PTT #### [facility] [address] Monocytes/100 WBC (Bld) 6.9 % Normal . [facility] Comment on above: Performed By: #### B WHARF LABOURER, HS TROP, HEPATIC, BMP, CBC, PT, PTT #### [place] [address] [place] Neutrophils (Bld) [#/Vol] 3.1 10*3/uL Normal 1.8-7.7 [facility] Comment on above: Performed By: #### B WHARF LABOURER, HS TROP, HEPATIC, BMP, CBC, PT, PTT #### [place] [address] [place] Neutrophils/100 WBC (Bld) 60.7 % Normal . [facility] Comment on above: Performed By: #### B WHARF LABOURER, HS TROP, HEPATIC, BMP, CBC, PT, PTT #### [place] [address] [place] Nucleated RBC/100 WBC (Bld) [Ratio] 0.0 % Normal 0-0.5 [facility] Comment on above: Performed By: #### B WHARF LABOURER, HS TROP, HEPATIC, BMP, CBC, PT, PTT #### [place] [address] [place] Platelet mean volume (Bld) [Entitic vol] 6.1 fL Low 6.3-10.7 [facility] Comment on above: Performed By: #### B WHARF LABOURER, HS TROP, HEPATIC, BMP, CBC, PT, PTT #### [place] [address] [place] Platelets (Bld) [#/Vol] 395 10*3/uL Normal 150-450 [facility] Comment on above: Performed By: #### B WHARF LABOURER, HS TROP, HEPATIC, BMP, CBC, PT, PTT #### [facility] [address] RBC (Bld) [#/Vol] 2.91 10*6/uL Low 3.60-5.00 [facility] Comment on above: Performed By: #### B WHARF LABOURER, HS TROP, HEPATIC, BMP, CBC, PT, PTT #### [facility] [address] WBC (Bld) [#/Vol] 5.1 10*3/uL Normal 4.5-11.0 [facility] Comment on above: Performed By: #### B WHARF LABOURER, HS TROP, HEPATIC, BMP, CBC, PT, PTT #### [facility] [address] ECG 12 lead ECGon 01-25-2021 ECG 12 lead ECG [facility] [place] [address] Electrocardiograph Report Signed Patient: Robbie Kemp MR#: [id number] : 1955 Acct:[id number] Age/Sex: 65 / F ADM Date: 01/25/21 Loc: ER Room: Type: [facility] ER Attending Dr: Ordering Provider: Derrell Goff DO Date of Service: 01/25/2109/11/1443 ECG/ECG 12 lead ECG: Chest Pain Copies to: Test Reason : Blood Pressure : / mmHG Vent. Rate : 084 BPM Atrial Rate : 084 BPM P-R Int : 154 ms QRS Dur : 070 ms QT Int : 364 ms P-R-T Axes : 058 021 055 degrees QTc Int : 430 ms Normal sinus rhythm Low voltage QRS Borderline ECG When compared with ECG of 29-DEC-2020 14:35, No significant change was found Confirmed by SHARDA HOUSTON MD ([id number]) on 01/25/2021 7:13:13 PM Referred By: Electronically Signed By:SHARDA HOUSTON MD Transcribed By: MUS Signed By Sharda Houston MD 01/25/211912 Normal [facility] Hepatic Panelon 01-25-2021 Albumin [Mass/Vol] 3.5 g/dL Normal 3.2-5.5 [facility] Comment on above: Performed By: #### B WHARF LABOURER, HS TROP, HEPATIC, BMP, CBC, PT, PTT ####[address] [address] [facility] Albumin/Globulin [Mass ratio] 1.3 {ratio} Normal [facility] Comment on above: Performed By: #### B WHARF LABOURER, HS TROP, HEPATIC, BMP, CBC, PT, PTT ####[address] [address] [facility] ALP [Catalytic activity/Vol] 78 U/L Normal 32-92 [facility] Comment on above: Performed By: #### B WHARF LABOURER, HS TROP, HEPATIC, BMP, CBC, PT, PTT ####[address] [address] [facility] ALT [Catalytic activity/Vol] 18 U/L Normal 10-60 [facility] Comment on above: Performed By: #### B WHARF LABOURER, HS TROP, HEPATIC, BMP, CBC, PT, PTT ####[address] [address] [facility] AST [Catalytic activity/Vol] 21 U/L Normal 10-42 [facility] Comment on above: Performed By: #### B WHARF LABOURER, HS TROP, HEPATIC, BMP, CBC, PT, PTT ####[address] [address] [facility] Bilirubin [Mass/Vol] 0.5 mg/dL Normal 0.3-1.2 [facility] Comment on above: Performed By: #### B WHARF LABOURER, HS TROP, HEPATIC, BMP, CBC, PT, PTT ####[address] [address] [facility] Bilirubin,Indirect Not performed Normal [facility] Comment on above: Performed By: #### B WHARF LABOURER, HS TROP, HEPATIC, BMP, CBC, PT, PTT ####[address] [address] [facility] Bilirubin.indirect [Mass/Vol] mg/dL Normal 0.0-0.4 [facility] Comment on above: Performed By: #### B WHARF LABOURER, HS TROP, HEPATIC, BMP, CBC, PT, PTT ####[facility] [address] Globulin (S) [Mass/Vol] 2.7 g/dL Normal [facility] Comment on above: Performed By: #### B WHARF LABOURER, HS TROP, HEPATIC, BMP, CBC, PT, PTT ####[place] [address] [address] Protein [Mass/Vol] 6.2 g/dL Normal 6.1-7.9 [facility] Comment on above: Performed By: #### B WHARF LABOURER, HS TROP, HEPATIC, BMP, CBC, PT, PTT ####[place] [address] [address] Partial Thromboplastin Timeo n 01-25-2021 aPTT Coag (Bld) [Time] 34.1 s Normal 25.1-36.5 [facility] Comment on above: Result Comment: PERF ORMED BY: [facility] [address] [place] [address] PATHOLOGIST DENTAL MECHANIC SHIRA PEREIRA M.D. Performed By: #### B WHARF LABOURER, HS TROP, HEPATIC, BMP, CBC, PT, PTT ####[address] Prothrombin Time INRon 01-25 INR Coag (PPP) [Relative time] 1.0 {INR} Normal [facility] Comment on above: Result Comment: INR Therapeutic Range A) Pre- and Peroperative OAT started two weeks before surgery. NOT HIP SURGERY: 1.5 - 2.5 HIP SURGERY: 2 - 3 B) Primary and secondary prevention of venous THROMBOSIS: 2 - 3 C) Active venous thrombosis, pulmonary embolism and prevention of recurrent venous thrombosis: 2 - 3 D) Prevention of arterial thromboembolism including patients with mechanical heart valves: 3 - 4.5 Performed By: #### B WHARF LABOURER, HS TROP, HEPATIC, BMP, CBC, PT, PTT #### [facility] [address] [place] [id number] [facility] PT Coag (PPP) [Time] 10.7 s Normal 9.0-12.9 [facility] Comment on above: Performed By: #### B WHARF LABOURER, HS TROP, HEPATIC, BMP, CBC, PT, PTT #### [facility] [address] Troponin I High Sensitivityo n 01-25-2021 Troponin I High Sensitivity 7 pg/mL Normal 0-15 [facility] Comment on above: Result Comment: PERF ORMED BY: [place] [id number] PATHOLOGIST DENTAL MECHANIC SHIRA PEREIRA M.D. Performed By: #### B WHARF LABOURER, HS TROP, HEPATIC, BMP, CBC, PT, PTT ####[facility] [id number] [place] [id number] [facility] XR chest 2V*on 01-25-2021 XR chest 2V* [facility] [place] [address] [place] [address] XRay Report Signed Patient: Robbie Kemp MR#: [id number] : 1955 Acct:[id number] Age/Sex: 65 / F ADM Date: 01/25/21 Loc: ER Room: Type: [facility] ER Attending Dr: Ordering Provider: Derrell Goff DO Date of Service: 01/25/21 XR/XR chest 2V*: Chest Pain Copies to: DO Sharda Mcfadden MD Chest 01/25/2021. CLINICAL DATA: Chest pain and pressure. FINDINGS: 2 views of the chest were obtained. No prior study is available for comparison. The cardiac silhouette is normal in size. The pulmonary vasculature is within normal limits. No pulmonary consolidation or collapse is identified. No pneumothorax or pleural effusion is seen. The thoracic spine demonstrates degenerative changes. XR/XR chest 2V* IMPRESSION: No acute cardiopulmonary disease. Impression dictated by: Gautam Rodriguez Jr., M.D.01/25/2021 4:33 PM Dictation Location: [place] [address] Transcribed By: LUIZA 01/25/211632 Dictated By: Gautam Rodriguez Jr, MD 01/25/211631 Signed By: 01/25/211632 [facility] 01-11-2021 L -------- -------- Specimen: [id number] Received: 01/11/21 Status: GIBRAN Vega Num: [id number] Spec Type: Surgical Subm Dr: Arvind Marie DO Tissues: A Femoral Head - Other than Fracture (L HIP) Procedures: JAMAL Downing/2, Gross/Micro L3, Decal -------- Patient Age/Sex Location Account Attending Physician -------- Robbie Kemp 65/F [place] [id number] Arvind Marie DO -------- SPEC NUM: [id number] RECD: 01/11/21 STATUS: GIBRAN HORNCarlos NUM: [id number] HENRIK: 01/11/21- SUBM DR: Arvind Marie DO ENTERED: 01/11/21 [facility] DR: SPEC TYPE: Surgical DEPT: S ORDERED: HE Stain/2, Gross/Micro L3, Decal ORDERED: HE Stain/2, Gross/Micro L3, Decal Pathological Diagnosis Bone and soft tissue, left hip, arthroplasty: - Articular surface with degenerative change. - Bone with necrosis, subchondral cysts, focal chronic inflammation and normal trilineage hematopoiesis. Clinical Information Degenerative joint disease, left hip Gross Description Received in formalin labeled with the patient's name and bone and tissue left hip is a 5 x 4.8 x 4.5 cm femoral head with a 1.6 cm in length x 5.1 cm in diameter smooth femoral neck. The articular cartilage is de la fuente-red with superficial erosion and granularity comprising approximately 30% of the articular cartilage. Eburnation is identified comprising approximately 50% of the articular cartilage. Prominent osteophyte formation is identified. The femoral head is quadrisected to reveal a 2.3 cm bright white wedge-like area of discoloration. The remaining bone reveals yellow firm and sclerotic appearing cut surfaces with a 0.6 cm subchondral cyst identified. Also received within the specimen container is an 8 x 7 x 2.5 cm aggregate of red bone curettings, bone fragments and soft tissue. Director Learning sections are submitted following formalin fixation and decalcification in cassettes A 1 - A2. (JUAN M/SHAYNE) -------- Specimen: [id number] Received: 01/11/21 Status: ROSYStuart Vega Num: [id number] Spec Type: Surgical Subm Dr: Arvind Marie DO Tissues: A Femoral Head - Other than Fracture (L HIP) Procedures: JAMAL Stain/2, Gross/Micro L3, Decal -------- Patient: Robbie Kemp [id number] (Continued) -------- Specimen: [id number] Received: 01/11/21 (Continued) Signed (signature on file) Ghazal Burk MD 01/13/21 1554 -------- Specimen: [id number] Received: 01/11/21 Status: GIBRAN Vega Num: [id number] Spec Type: Surgical Subm Dr: Arvind Marie DO Tissues: A Femoral Head - Other than Fracture (L HIP) Procedures: JAMAL Stain/2, Gross/Micro L3, Decal -------- Patient: Robbie Kemp [id number] (Continued) -------- Specimen: [id number] Received: 01/11/21 (Continued) Microscopic Description Two glass slides with H E stained material have been examined. The microscopic findings support the above pathologic diagnosis. CPT Codes 46435, 94293 -------- -------- Specimen: [id number] Received: 01/11/21 Status: GIBRAN Vega Num: [id number] Spec Type: Surgical Subm Dr: Arvind Marie DO Tissues: A Femoral Head - Other than Fracture (L HIP) Procedures: HE Stain/2, Gross/Micro L3, Decal -------- Patient: Robbie Kemp [id number] (Continued) -------- Signed (signature on file) Ghazal Burk MD 01/13/21 1554 Normal [facility] Type and Screenon 01-11-2021 ABO and Rh group Nom (Bld) Blood group O Rh(D) positive Normal [facility] Comment on above: Result Comment: PERF ORMED BY: [place] [id number] PATHOLOGIST DENTAL MECHANIC SHIRA PEREIRA M.D. XR pelvis 1-2Von 01-11-2021 XR pelvis 1-2V [facility] [place] [address] XRay Report Signed Patient: Robbie Kemp MR#: [id number] : 1955 Acct:[id number] Age/Sex: 65 / F ADM Date: 01/11/21 Loc: [place] Room: Type: [facility] Attending Dr: Arvind Marie DO Ordering Provider: Arvind Marie DO Date of Service: 01/11/21 XR/XR pelvis 1-2V: post op Copies to: Arvind Marie DO Pelvis 01/11/2021 CLINICAL DATA: Status post left hip replacement. FINDINGS: A single frontal view of both hips was obtained. The patient is status post total left hip arthroplasty. The acetabular and femoral implants appear to be intact and in satisfactory position. No fracture is identified. No dislocation is seen. Postoperative subcutaneous air is noted. XR/XR pelvis 1-2V IMPRESSION: Status post total left hip arthroplasty. Impression dictated by: Gautam Rodriguez Jr., M.D.01/11/2021 2:28 PM Dictation Location: [place] [address] Transcribed By: [facility] 01/11/211427 Dictated By: Gautam Rodriguez Jr, MD 01/11/211426 Signed By: 01/11/211427 Normal [facility] SARS-CoV-2 (COVID-19) RNA NOLVIA+probe Ql (Unsp spec) Negative Normal Negative [facility] Comment on above: Order Comment: Healt hcare Worker?: N Result Comment: Testing for SARS-CoV-2 by RT-PCR This test was developed and its performance characteristics determined by [employer] and validated at the [facility]. This test has not been FDA cleared or approved. This test has been authorized by FDA under an Emergency Use Authorization (EUA). This test has been validated in accordance with the FDA's Guidance Document (Policy for Diagnostics Testing in Laboratories Certified to Perform High Complexity Testing under CLIA prior to Emergency Use Authorization for Coronavirus Disease-2019 during the Public Health Emergency) issued on July 24, 2019. This test is only authorized for the duration of time the declaration that circumstances exist justifying the authorization of the emergency use of in vitro diagnostic tests for detection of SARS-CoV-2 virus and/or diagnosis of COVID-19 infection under section 564(b)(1) of the Act, 21 U.S.C. 360bbb-3(b)(1), unless the authorization is terminated or revoked sooner. PERFORMED BY: [place] [address] PATHOLOGIST DENTAL MECHANIC SHIRA PEREIRA M.D. Performed By: #### C OVID 19 [facility] #### [place] [id number] [facility] XR pelvis 1-2Von 01-07-2021 XR pelvis 1-2V [facility] [address] [place] [address] [place] [address] XRay Report Signed Patient: Robbie Kemp MR#: [id number] : 1955 Acct:[id number] Age/Sex: 65 / F ADM Date: 01/07/21 Loc: [facility]: Type[facility] Attending Dr: Arvind Marie DO Ordering Provider: Arvind Marie DO Date of Service: 01/07/21 XR/XR pelvis 1-2V: Primary osteoarthritis of left hip Copies to: Arvind Marie DO XR pelvis 1-2V 01/07/2021 9:24 AM SIGNS AND SYMPTOMS: Primary osteoarthritis of left hip PROTOCOL: Frontal radiograph of the pelvis COMPARISON: 11/25/2020 FINDINGS: There is severe narrowing of the left hip joint space with partial collapse of the left femoral head. This is slightly worse when compared to the prior exam. There is subchondral cystic change and sclerosis on both sides of the joint. Degenerative changes are noted in the sacroiliac joints and symphysis pubis. XR/XR pelvis 1-2V IMPRESSION: There is severe narrowing of the left hip joint space with partial collapse of the left femoral head. This is slightly worse when compared to the prior exam. Impression dictated by: Yahir Landrum M.D.01/07/2021 12:23 PM Dictation Location: [place] [address] Transcribed By: [facility] 01/07/21 1223 Dictated By: Yahir Landrum II, MD 01/07/21 122 Signed By: 01/07/21 1223 Normal [facility] Basic Metabolic Panelon 09-0 Calcium [Mass/Vol] 9.4 mg/dL Normal 8.2-10.2 [facility] Comment on above: Result Comment: PERF ORMED BY: [address] [address] PATHOLOGIST DENTAL MECHANIC SHIRA PEREIRA M.D. Performed By: #### B MP, CBC #### [place] [id number] [facility] Chloride [Moles/Vol] 102 mmol/L Normal 95-114 [facility] Comment on above: Performed By: #### B MP, CBC #### [facility] [address] CO2 [Moles/Vol] 22.4 mmol/L Normal 22.0-30.0 [facility] Comment on above: Performed By: #### B MP, CBC #### [address] Creatinine [Mass/Vol] 0.60 mg/dL Normal 0.44-1.03 [facility] Comment on above: Performed By: #### B MP, CBC #### [address] Estimated GFR ( Drea > 60 Normal [facility] Comment on above: Result Comment: GFR estimated reference range: According to KDOQI guidelines, <60 ml/min/1.73m2 is sufficient to diagnose a patient with chronic kidney disease. Performed By: #### B MP, CBC #### [address] Estimated GFR (Non- Am > 60 Normal [facility] Comment on above: Performed By: #### B MP, CBC #### [address] Glucose [Mass/Vol] 98 mg/dL Normal 70-100 [facility] Comment on above: Result Comment: Maynard om Glucose Reference Range is dependent on time and content of last meal. Glucose of more than 200 mg/dL in a nonstressed, ambulatory subject supports the diagnosis of Diabetes Mellitus. ADA recommended reference range Performed By: #### B MP, CBC #### [place] [address] [place] Potassium [Moles/Vol] 4.0 mmol/L Normal 3.5-5.1 [facility] Comment on above: Performed By: #### B MP, CBC #### [place] [address] [place] Sodium [Moles/Vol] 137 mmol/L Normal 136-146 [facility] Comment on above: Performed By: #### B MP, CBC #### [address] [place] [address] [place] Urea nitrogen [Mass/Vol] 10 mg/dL Normal 9-23 [facility] Comment on above: Performed By: #### B MP, CBC #### [address] Complete Blood Count Auto Di ffon 12-29-2020 Basophils (Bld) [#/Vol] 0.1 10*3/uL Normal 0.0-0.2 [facility] Comment on above: Result Comment: PERF ORMED BY: [place] [address] PATHOLOGIST DENTAL MECHANIC SHIRA PEREIRA M.D. Performed By: #### B MP, CBC #### [address] Basophils/100 WBC (Bld) 1.4 % Normal . [facility] Comment on above: Performed By: #### B MP, CBC #### [address] Eosinophils (Bld) [#/Vol] 0.1 10*3/uL Normal 0.0-0.45 [facility] Comment on above: Performed By: #### B MP, CBC #### [address] Eosinophils/100 WBC (Bld) 2.2 % Normal . [facility] Comment on above: Performed By: #### B MP, CBC #### [address] Erythrocyte distribution width (RBC) [Ratio] 12.0 % Normal 11.9-15.3 [facility] Comment on above: Performed By: #### B MP, CBC #### [address] Hematocrit (Bld) [Volume fraction] 36.1 % Normal 34.0-46.4 [facility] Comment on above: Performed By: #### B MP, CBC #### [address] Hemoglobin (Bld) [Mass/Vol] 12.5 g/dL Normal 11.8-15.4 [facility] Comment on above: Performed By: #### B MP, CBC #### [facility] [address] Lymphocytes (Bld) [#/Vol] 1.4 10*3/uL Normal 1.00-4.8 [facility] Comment on above: Performed By: #### B MP, CBC #### [facility] [address] Lymphocytes/100 WBC (Bld) 31.4 % Normal . [facility] Comment on above: Performed By: #### B MP, CBC #### [address] MCH (RBC) [Entitic mass] 36.7 pg High 24.7-34.3 [facility] Comment on above: Performed By: #### B MP, CBC #### [address] MCV (RBC) [Entitic vol] 105.8 fL High 80-100 [facility] Comment on above: Performed By: #### B MP, CBC #### [address] Mean Corpuscular HGB Conc 34.7 g/dL Normal 32.0-35.0 [facility] Comment on above: Performed By: #### B MP, CBC #### [place] [address] [place] Monocytes (Bld) [#/Vol] 0.4 10*3/uL Normal 0.0-0.8 [facility] Comment on above: Performed By: #### B MP, CBC #### [place] [address] [place] Monocytes/100 WBC (Bld) 8.9 % Normal . [facility] Comment on above: Performed By: #### B MP, CBC #### [address] Neutrophils (Bld) [#/Vol] 2.5 10*3/uL Normal 1.8-7.7 [facility] Comment on above: Performed By: #### B MP, CBC #### [facility] [address] Neutrophils/100 WBC (Bld) 56.1 % Normal . [facility] Comment on above: Performed By: #### B MP, CBC #### [facility] [address] [place] [address] [place] Nucleated RBC/100 WBC (Bld) [Ratio] 0.1 % Normal 0-0.5 [facility] Comment on above: Performed By: #### B MP, CBC #### [facility] [address] Platelet mean volume (Bld) [Entitic vol] 7.9 fL Normal 6.3-10.7 [facility] Comment on above: Performed By: #### B MP, CBC #### [facility] [address] [place] [address] [place] Platelets (Bld) [#/Vol] 195 10*3/uL Normal 150-450 [facility] Comment on above: Performed By: #### B MP, CBC #### [facility] [address] [place] [address] [place] RBC (Bld) [#/Vol] 3.41 10*6/uL Low 3.60-5.00 [facility] Comment on above: Performed By: #### B MP, CBC #### [facility] [address] [place] [address] [place] WBC (Bld) [#/Vol] 4.5 10*3/uL Normal 4.5-11.0 [facility] Comment on above: Performed By: #### B MP, CBC #### [facility] [address] [place] [address] [place] ECG 12 lead ECGon 12-29-2020 ECG 12 lead ECG [facility] [place] [address] [place] [address] Electrocardiograph Report Signed Patient: Robbie Kemp MR#: [id number] : 1955 Acct:[id number] Age/Sex: 65 / F ADM Date: 12/29/20 Loc: [place] [facility]: [facility] Att[facility] Dr: Arvind Marie DO Ordering Provider: Arvind Marie DO Date of Service: 12/29/2012/11/1416 ECG/ECG 12 lead ECG: LEFT TOTAL HIP ARTHROPLASTY Copies to: Test Reason : Blood Pressure : / mmHG Vent. Rate : 093 BPM Atrial Rate : 093 BPM P-R Int : 146 ms QRS Dur : 074 ms QT Int : 354 ms P-R-T Axes : 055 013 052 degrees QTc Int : 440 ms Normal sinus rhythm Low voltage QRS Nonspecific ST abnormality V5/V6 Abnormal ECG No previous ECGs available Confirmed by MARISEL CAMARENA DO ([id number]) on 12/30/2020 8:24:00 PM Referred By: LINDA MARIE Electronically Signed By:MARISEL CAMARENA DO Transcribed By: MUS Signed By Marisel Camarena DO 12/30 Normal [facility] Urinalysison 12-29-2020 Appearance (U) Clear Normal Clear [facility] Comment on above: Order Comment: Name Collection Type:: Clean-Voided Midstream Performed By: #### U A #### [facility] [address] [place] [address] [place] Bilirubin,Urine Negative Normal Negative [facility] Comment on above: Order Comment: Name Collection Type:: Clean-Voided Midstream Performed By: #### U A #### [facility] [address] [place] [address] [place] Color (U) Yellow Normal Yellow [facility] Comment on above: Order Comment: Name Collection Type:: Clean-Voided Midstream Performed By: #### U A #### [facility] [address] [place] [id number] [place] Glucose Ql (U) Normal Normal Normal [facility] Comment on above: Order Comment: Name Collection Type:: Clean-Voided Midstream Performed By: #### U A #### [facility] [address] [place] [id number] [place] Ketones Ql (U) Negative Normal Negative [facility] Comment on above: Order Comment: Name Collection Type:: Clean-Voided Midstream Performed By: #### U A #### [facility] [address] [place] [address] Leukocyte esterase Test strip Ql (U) Negative Normal Negative [facility] Comment on above: Order Comment: Name Collection Type:: Clean-Voided Midstream Performed By: #### U A #### [facility] [address] [place] [address] Nitrite,Urine Negative Normal Negative [facility] Comment on above: Order Comment: Name Collection Type:: Clean-Voided Midstream Performed By: #### U A #### [address] Occult Blood,Urine Negative Normal Negative [facility] Comment on above: Order Comment: Name Collection Type:: Clean-Voided Midstream Result Comment: PERF ORMED BY: [place] [address] PATHOLOGIST DENTAL MECHANIC SHIRA PEREIRA M.D. Performed By: #### U A #### [facility] [address] [place] [address] pH (U) 5.5 [pH] Normal 5.0-9.0 [facility] Comment on above: Order Comment: Name Collection Type:: Clean-Voided Midstream Performed By: #### U A #### [facility] [address] [place] [address] Protein,Urine Negative Normal Negative [facility] Comment on above: Order Comment: Name Collection Type:: Clean-Voided Midstream Performed By: #### U A #### [facility] [address] [place] [address] Specificy [place],Urine 1.009 Normal 1.001-1.030 [facility] Comment on above: Order Comment: Name Collection Type:: Clean-Voided Midstream Performed By: #### U A #### [facility] [address] [place] [address] Urobilinogen,Urine Normal Normal Normal [facility] Comment on above: Order Comment: Name Collection Type:: Clean-Voided Midstream Performed By: #### U A #### [facility] [address] Ambulatory Clinical Summaryo n 08-10-2020 Ambulatory Clinical Summary {[id number]}CD:[id number] Normal [facility] General Surgery Office/Clini c Noteon 08-10-2020 General Surgery Office/Clinic Note Chief Complaint post operative follow up HPI Staff 6 day post operative follow up post colonoscopy and EGD with antral biopsy. No change in symptoms since last visit. History of Present Illness 1 week s/p EGD/colonoscopy; doing well, no change in symptoms; found small hiatal hernia, mild gastritis, negative for H pylori; colonoscopy with redundant colon, mild sigmoid diverticulosis. Review of Systems ROS - Provider Constitutional: no fever, no sweats, no weight loss. Eyes: no glasses, no blurred vision, no visual loss. ENMT: no dentures, no hoarseness, no swallowing difficulties, no hearing loss, no ear infection(s), no nose bleeds. Cardiovascular: normal blood pressure, no chest pain, regular heartbeat, no heart murmur. Respiratory: no shortness of breath, no cough, no asthma, no wheezing. Gastrointestinal: no nausea, no vomiting, mild diarrhea, no constipation, no blood in stool, no change in bowel habits, mild abdominal pain, no hepatitis. Genitourinary: no kidney stones, no urine infection, no dysuria. Musculoskeletal: no pain, no weakness. Skin: no changing moles, no rash, no skin lumps. Neurologic: no seizures, no epilepsy, no headache. Psychiatric: no emotional or psychiatric problem. Heme/Lymph: no bleeding problems, no anemia, no blood clots, no transfusions. Allergy/Immunologic: no swollen lymph nodes/glands, no IV drug abuse. Other: Additional ROS info: Except as noted in the above Review of Systems and in the History of Present Illness, all other systems have been reviewed and are negative or noncontributory. Physical Exam Vitals & Measurements T: 36.4 ?C (Tympanic) Assessment/Plan 1. IBS (irritable bowel syndrome) (K58.9: Irritable bowel syndrome without diarrhea) recommend high fiber diet (25-30 gms/day) and daily fiber supplement; consider low FODMAP diet. call with problems/questions. 2. Hiatal hernia (K44.9: Diaphragmatic hernia without obstruction or gangrene) asymptomatic, denies GERD symptoms or improvement with PPI. call with problems/questions. Follow-up No qualifying data available Problem List/Past Medical History Ongoing Abdominal pain, generalized Arthralgia Asthma Chronic GERD Diarrhea Early satiety Elevated liver enzymes Hair loss Hiatal hernia Hoarseness Hx of colonic polyps Hypothyroidism IBS (irritable bowel syndrome) Nausea RUQ abdominal pain Spondylosis of lumbar spine Weight loss, unintentional Historical No qualifying data Procedure/Surgical History Colonoscopy (08/04/2020), EGD - Esophagogastroduodenoscopy (08/04/2020), Appendectomy, Total hysterectomy. Medications Advair Discus 100 mcg-50 mcg Powder, 1 puff(s), Inhalation, BID alprazolam 0.25 mg oral tablet, disintegrating, 0.25 mg= 1 tab(s), Oral, TID, PRN carisoprodol 350 mg Tab, Oral, QID cetirizine-pseudoephedrine 5 mg-120 mg ER Tab, 1 tab(s), Oral, BID Diclofenac 75mg Tab-DR, Oral, BID dicyclomine 20 mg Tab, Oral, QID ibuprofen 800 mg Tab, 800 mg= 1 tab(s), Oral, TID, PRN levothyroxine 50 mcg (0.05 mg) Tab, See Instructions lisinopril 10 mg Tab, 10 mg= 1 tab(s), Oral, Daily Lomotil 0.025 mg-2.5 mg Tab, 1 tab(s), Oral, QID, PRN omeprazole 40 mg Cap-DR, Oral, Daily ondansetron 4 mg Dis Tab, 4 mg= 1 tab(s), Oral, As Directed Pristiq 25 mg oral tablet, extended release, Oral, Daily Pristiq 50 mg Tab-ER, 50 mg= 1 tab(s), Oral, Daily simvastatin 20 mg Tab, 20 mg= 1 tab(s), Oral, Once a day (at bedtime) Allergies Cipro (Unknown) Dilaudid (Unknown, Unknown) sulfa drugs (Unknown) penicillin (Unknown) Social History Tobacco Never (less than 100 in lifetime) Tobacco Use:. Never Smokeless Tobacco Use:., 08/10/2020 Family History Family history is negative [facility] Comment on above: Result Comment: Elec tronically Signed By: SANDRA AMARO, Jaden Palmer\Date and Time Signed: 08/10/20 15:40 EDT Outside Colonoscopyon 2020 Outside Colonoscopy [id number]:127 Normal [facility] Lab Reportson 08-02-2020 Lab Reports [id number]:127 Normal [facility] Provider Letter FTon 07-28 Provider Letter [facility] Kory Ambriz, [facility] [place] [address] Re: ROBBIE KEMP Date of : 1955 Thank you for your referral of Robbie Kemp who was seen on consultation on July 21, 2020, for on-going abdominal pain and diarrhea. An EGD and colonoscopy are planned for further evaluation. I have enclosed my consultation notes for your review. I will be happy to follow patient should her symptoms persist. Sincerely, Jaden Soliz MD General Surgery [facility] Ambulatory Clinical Summaryo n 07-21-2020 Ambulatory Clinical Summary {[id number]}CD:6143 68 Normal [facility] Ambulatory Clinical Summary {[id number]}CD:6143 68 Normal [facility] Vital Signs Date Time Vital Sign Value Performing Clinician Facility 01-10-2022 13:39-0400 Body mass index (BMI) [Ratio] 26.3 kg/m2 Referring Provider Unknown [facility] Work Phone: 01-10-2022 13:39-0400 Body surface area Derived from formula 1.92 m2 Referring Provider Unknown [facility] Work Phone: 01-10-2022 13:39-0400 Body temperature 98.1 [degF] Referring Provider Unknown CT[facility]FTCM[facility] Work Phone: 01-10-2022 13:39-0400 Body weight 78.47 kg Referring Provider Unknown MQ[facility]BKQF[facility] Work Phone: 01-10-2022 13:39-0400 Diastolic blood pressure 66 mm[Hg] Referring Provider Unknown GA[facility]WEJX[facility] Work Phone: 01-10-2022 13:39-0400 Heart rate 88 /min Referring Provider Unknown SO[facility]WMFR[facility] Work Phone: 01-10-2022 13:39-0400 Respiratory rate 16 /min Referring Provider Unknown GD[facility]OUVJ[facility] Work Phone: 01-10-2022 13:39-0400 SaO2% (BldA) [Mass fraction] 98 % Referring Provider Unknown DX-QMTF[facility]Bkde[facility] Work Phone: 01-10-2022 13:39-0400 Systolic blood pressure 128 mm[Hg] Referring Provider Unknown LV[facility]JPUQ[facility] Work Phone: 12-12-2021 10:13-0400 Body height 172.72 cm Referring Provider Unknown KR-NVKT[facility]ay[facility] Work Phone: 12-12-2021 10:13-0400 Body mass index (BMI) [Ratio] 26.3 kg/m2 Referring Provider Unknown RX-AUZG[facility] Work Phone: 12-12-2021 10:13-0400 Body surface area Derived from formula 1.92 m2 Referring Provider Unknown SI-YYXQ[facility]Lcu[facility] Work Phone: 12-12-2021 10:13-0400 Body temperature 98.1 [degF] Referring Provider Unknown ZA-PJYN[facility]Lqk[facility] Work Phone: 12-12-2021 10:13-0400 Body weight 78.47 kg Referring Provider Unknown AB[facility]TRLR[facility] Work Phone: 12-12-2021 10:13-0400 Diastolic blood pressure 84 mm[Hg] Referring Provider Unknown FD-XCJF[facility] Work Phone: 12-12-2021 10:13-0400 Heart rate 89 /min Referring Provider Unknown OY-DZJA[facility] Work Phone: 12-12-2021 10:13-0400 Respiratory rate 17 /min Referring Provider Unknown QV-TFBP[facility] Work Phone: 12-12-2021 10:13-0400 SaO2% (BldA) [Mass fraction] 99 % Referring Provider Unknown OK-XHQP[facility]Nsk[facility] Work Phone: 12-12-2021 10:13-0400 Systolic blood pressure 144 mm[Hg] Referring Provider Unknown AN-VSCK[facility]Xkghx [facility] Work Phone: 01-24-2021 09:45-0400 Body height Arvind Marie Other [employer] Other 01-24-2021 09:45-0400 Body mass index (BMI) [Ratio] 23.57 kg/m2 Arvind Marie Other [facility] Other 01-24-2021 09:45-0400 Body weight 70.31 kg Arvind Marie Other [facility] Other 01-07-2021 10:30-0400 Body height Arvind Marie Other [employer] Other 01-07-2021 10:30-0400 Body mass index (BMI) [Ratio] 23.57 kg/m2 Arvind Belinda Other [employer] Other 01-07-2021 10:30-0400 Body weight 70.31 kg Arvind Marie Other [facility] Other 01-07-2021 10:30-0400 Diastolic blood pressure 89 mm[Hg] Arvind Marie Other [facility] Other 01-07-2021 10:30-0400 Systolic blood pressure 117 mm[Hg] Arvind Marie Other [facility] Other Encounters Encounter Date Encounter Type Care Provider Facility Start: 03-29-2023 End: 03-29-2023 ambulatory [facility] Start: 03-29-2023 End: 03-29-2023 Encounter for other preprocedural examination [facility] Start: 02-26-2023 End: 02-26-2023 ambulatory [facility] Start: 07-10-2022 End: 07-11-[address] KORY AMBRIZ . Facility:[facility] Start: 06-27-2022 End: 06-28-[address] KORY AMBRIZ . Facility:[facility] Start: 05-23-2022 End: 05-24-[address] KORY AMBRIZ . Facility:[facility] Start: 01-10-2022 Office outpatient vi sit 15 minutes Referring Provider Unknown IO[facility]LVSO[facility] Work Phone: Start: 01-10-2022 ambulatory PCP UNKNOWN Facility:1 4342 Start: 12-12-2021 Office outpatient ne w 45 minutes Referring Provider Unknown BW[facility]CPYS[facility] Work Phone: Start: 12-12-2021 ambulatory PCP UNKNOWN Facility:9 451 Start: 11-15-2021 End: 11-16-2021 ambulatory LEILA MARTIN Facility:[facility] Start: 11-03-2021 End: 11-03-2021 Discharged Recurring MD Kory Ambriz Work Phone: [facility] [place] Start: 10-18-2021 End: 10-19-2021 ambulatory LEILA MARTIN Facility:[facility] Start: 09-30-2021 End: 10-01-2021 ambulatory YISSEL CARDOZO Facility:[facility] Start: 08-03-2021 End: 08-03-2021 ambulatory Arvind Marie Other [employer] Other Start: 08-03-2021 Telephone encounter Arvind PORTER [facility] Start: 07-06-2021 End: 07-06-2021 ambulatory Arvind Marie Other [employer] Other Start: 07-06-2021 Office outpatient vi sit 15 minutes Arvind Marie [facility] Start: 03-04-2021 End: 03-04-2021 ambulatory Arvind Marie Other [facility] Other Start: 03-04-2021 Telephone encounter Arvind PORTER [facility] Start: 02-21-2021 Postop follow up vis it related to original px Arvind Belinda [facility] Start: 02-07-2021 Telephone encounter Arvind PORTER [facility] Start: 01-24-2021 Postop follow up vis it related to original px Arvind Marie [facility] Start: 01-07-2021 End: 01-07-2021 ambulatory Arvind Marie Other [facility] Other Start: 01-07-2021 Encounter for other preprocedural examination Arvind Marie [facility] Start: 01-07-2021 Office outpatient vi sit 25 minutes Arvind Marie [facility] Start: 10-18-2017 Patient encounter [employer]NA[employer] Start: 08-04-2017 End: 08-04-2017 Patient encounter CAN [facility]ERRE Facility:[facility] Procedures Date Procedure Procedure Detail Performing Clinician Start: 01-11-2021 Antibody screen Comment on above: Result Comment: PERF ORMED BY: [facility] [address] [place] [address] PATHOLOGIST DENTAL MECHANIC SHIRA PEREIRA M.D. Appendectomy Referring Provi virgen Unknown Cataract surgery Referring P rovider Unknown Excisional biopsy of breast Referring Provider Unknown Hysterectomy vaginal Referri ng Provider Unknown Operation on bladder Referri ng Provider Unknown Repair of tendon Referring P rovider Unknown Total replacement of hip Ref erring Provider Unknown Plan of Treatment Date Care Activity Detail Author Start: 07-11-2022 FUV, Provider: La Nena Miguel, Status: Pen, Time: 2:10 PM FUV, Provider: La Nena Miguel, Status: Pen, Time: 2:10 PM [facility] Work Phone: Immunizations Immunization Date Immunization Notes Care Provider [facility] mederos 08-27-2020 Do not use COVID-19 Pfizer 2 dose Arvind Belinda Other [facility] 08-06-2020 Do not use COVID-19 Pfizer 2 dose Arvind Belinda Other [facility] Payers Date Payer Category Payer Unknown [id number] 2. [id number] 2020 Unknown [id number] 1955 Unknown [id number] 1955 Unknown [id number] 1955 Unknown [id number] 1955 Unknown [id number] 1955 Unknown [id number] 1955 Unknown [id number] 1955 Unknown [id number] 1955 Unknown [id number] 1955 Unknown [id number] Medicare Self-pay Self Pay [id number] Unknown Unknown 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[place] [id number] Social History Date Type Detail Facility Unknown if ever smoked [employer] Other Sex Assigned At Sex Assigned At Bir th [employer] Other Cigarette smoker Cigarette smoker -[facility] Work Phone: Start: 01-25-2021 Tobacco smoking stat [facility] Smoker (finding) [facility] Start: 1955 Sex Assigned At Female F [facility] Medical Equipment Procedure Code Equipment Code Equipment Origin al Text Equipment Identifier Dates 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 Coated hip femur prosthesis, modular ()[id number] FDA Start: 01-11-2021 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 Acetabular shell [id number] FDA Start: 01-11-2021 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 Non-constrained polyethylene acetabular liner ()[id number] FDA Start: 01-11-2021 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 Ceramic femoral head prosthesis ()[id number] FDA Start: 01-11-2021 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 Orthopaedic bone screw, non-bioabsorbable, sterile ()[id number] FDA Start: 01-11-2021 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 Orthopaedic bone screw, non-bioabsorbable, sterile ()[id number] FDA Start: 01-11-2021 Clinical Notes 07-21-2020 to 03-29-2023 Note Date & Type Note Facility 03-29-2023 Note [facility] Cardiology Clinic Note Chief Complaint: Patient here for follow up echo. Says her BP has been much better. SOB and palpitations have been gone since BP has been better. HPI: Robbie Kemp is a 67 y.o. female with past medical history of hypothyroidism, rheumatoid arthritis, asthma, GERD, elevated liver enzymes, hyperlipidemia, and anxiety referred for evaluation and management of hypertension. She was diagnosed with hypertension at least 5 years ago. Her blood pressure medications have had to be intensified over the last several years. She is dyspneic with stairs but otherwise no significant dyspnea which has been ongoing for about a year. She has appreciated an irregular heart rate once in a while. It is a sinus rhythm with ectopy according to her Apple watch, no afib. No chest pain or lowerextremity edema. She has no known family history of coronary artery disease or sudden cardiac . Update 03/29/2023: Doing much better. She has no further shortness of breath or palpitations. Her blood pressure is much better controlled. She denies orthopnea, she has no paroxysmal external dyspnea. She denies lower extremity edema. She has no exertional chest pain. She is scheduled to have foot surgery in the near future. Cardiology ROS: Review of Systems Cardiovascular: Positive for dyspnea on exertion (improving) and palpitations (improving). Neurological: Positive for numbness. All other systems reviewed and are negative. Past Medical History He has a past medical history of Asthma, GERD (gastroesophageal reflux disease), Hyperlipidemia, Hypertension, Hypothyroidism, and RA (rheumatoid arthritis) ([facility]). Surgical History He has a past surgical history that includes Replacement total hip lateral position; Tibia / fibia lengthening; Hysterectomy; and Breast biopsy. Social History He reports that he has quit smoking. His smoking use included cigarettes. He has never used smokeless tobacco. He reports current alcohol use. No history on file for drug use. Family History Family History Problem Relation Name Age of Onset Hypertension Mother Atrial fibrillation Sister Allergies Fentanyl, Hydromorphone, Penicillins, and Sulfanilamide Medications Current Outpatient Medications: Advair Diskus 250-50 mcg/dose diskus inhaler, , Disp: , Rfl: amLODIPine (Norvasc) 5 mg tablet, Take 1 tablet (5 mg) by mouth in the morning., Disp: 30 tablet, Rfl: 1 carvedilol (Coreg) 25 mg tablet, TAKE 1 TABLET BY MOUTH WITH FOOD TWICE DAILY, Disp: , Rfl: desvenlafaxine (Pristiq) 50 mg 24 hr tablet, TAKE 1 TABLET BY MOUTH ONCE DAILY FOR 90 DAYS, Disp: , Rfl: diclofenac (Voltaren) 75 mg EC tablet, , Disp: , Rfl: estradiol (Estrace) 0.5 mg tablet, 1 tablet Orally Once a day, Disp: , Rfl: lisinopril 40 mg tablet, Take 40 mg by mouth in the morning and at bedtime., Disp: , Rfl: omeprazole (PriLOSEC) [address] capsule, , Disp: , Rfl: simvastatin (Zocor) 20 mg tablet, 1 tablet in the evening Orally Once a day, Disp: , Rfl: Synthroid 50 mcg tablet, , Disp: , Rfl: Last Recorded Vitals BP 110/74 (BP Location: Left arm, Patient Position: Sitting) Pulse 74 Ht 1.702 m (5' 7 ) Wt 80.7 kg (178 lb) SpO2 96% BMI 27.88 kg/m??? Physical Examination: GENERAL: alert and oriented x3, well developed, in no acute distress. HEAD: atraumatic, normocephalic. EYES: CORY, EOMI. NECK: trachea midline, no JVD present, no carotid bruits present. CARDIAC: S1, S2 present. RRR. No murmur, rubs, or gallops. RESPIRATORY: CTAB, no increased effort of breathing, no rales, rhonchi, or wheezing. ABDOMEN: soft, nontender, nondistended. EXTREMITIES: no lower extremity edema, peripheral pulses are 2+ bilaterally. No rash/skin discoloration present. NEURO: strength/sensation equal and symmetric in bilateral upper and lower extremities. PSYCH: appropriate mood, affect, and judgement. Investigations: Ankle-brachial indices 03/08/2023: Normal arterial evaluation of the lower extremities without hemodynamically Of bilateral lower extremities at rest. Echocardiogram 02/2023: Global left ventricular systolic function is hyperdynamic; visually estimated ejection fraction 65 to 70%. The right ventricle is normal in size and systolic function. Normal diastolic function. Moderate tricuspid regurgitation. Mildly elevated right ventricular systolic pressure. Assessment: Essential hypertension Dyspnea on exertion - Resolved Dyslipidemia Palpitations Moderate tricuspid regurgitation Mildly elevated right ventricular systolic pressure Preoperative evaluation Plan: Continue current medical therapy and monitoring of her blood pressure Given her physical tolerance, risk factor profile, and tentatively planned foot surgery, she would be at acceptable low risk to proceed with upcoming surgery with no further cardiovascular testing needed. Recommend strict heart rate and blood pressu (more content not included)... [facility] 02-26-2023 Note 176#New patient here to establish care. Ref from Dr. Ambriz for hypertension. She has upcoming foot surgery and wants to make sure her BP is under control prior to this. She sometimes gets a funny feeling in her chest when BP is elevated. Gets SOB w/ exertion and palpitations intermittently. Review of Systems Cardiovascular: Positive for dyspnea on exertion and palpitations. All other systems reviewed and are negative. [facility] 02-26-2023 Note Cardiovascular Medic ine [facility] SUBJECTIVE No chief complaint on file. AVEL Kemp is a 67 y.o. female with past medical history of hypothyroidism, rheumatoid arthritis, asthma, GERD, elevated liver enzymes, hyperlipidemia, and anxiety referred for evaluation and management of hypertension. She was diagnosed with hypertension at least 5 years ago. Her blood pressure medications have had to be intensified over the last several years. She is dyspneic with stairs but otherwise no significant dyspnea which has been ongoing for about a year. She has appreciated an irregular heart rate once in a while. It is a sinus rhythm with ectopy according to her Apple watch, no afib. No chest pain or lowerextremity edema. She has no known family history of coronary artery disease or sudden cardiac . Allergies Allergen Reactions Fentanyl Unknown Hydromorphone Unknown Penicillins Sulfanilamide Unknown Patient Active Problem List Diagnosis Artificial menopause Perimenopausal disorder Past Medical History: Diagnosis Date Asthma GERD (gastroesophageal reflux disease) Hyperlipidemia Hypertension Hypothyroidism RA (rheumatoid arthritis) ([facility]) Past Surgical History: Procedure Laterality Date BREAST BIOPSY HYSTERECTOMY REPLACEMENT TOTAL HIP LATERAL POSITION TIBIA / FIBIA LENGTHENING Family History Problem Relation Name Age of Onset Hypertension Mother Atrial fibrillation Sister Social History Tobacco Use Smoking status: Former Types: Cigarettes Smokeless tobacco: Never Substance Use Topics Alcohol use: Yes Comment: occasional Review of Systems Cardiovascular: Positive for dyspnea on exertion, irregular heartbeat and palpitations. Negative for chest pain, claudication, leg swelling, near-syncope, orthopnea, paroxysmal nocturnal dyspnea and syncope. OBJECTIVE Visit Vitals BP 123/86 (BP Location: Left arm, Patient Position: Sitting) Pulse 92 Ht 1.702 m (5' 7 ) Wt 79.8 kg (176 lb) SpO2 99% BMI 27.57 kg/m??? Smoking Status Former BSA 1.94 m??? Medications: Current Outpatient Medications: Advair Diskus 250-50 mcg/dose diskus inhaler, , Disp: , Rfl: carvedilol (Coreg) 25 mg tablet, TAKE 1 TABLET BY MOUTH WITH FOOD TWICE DAILY, Disp: , Rfl: desvenlafaxine (Pristiq) 50 mg 24 hr tablet, TAKE 1 TABLET BY MOUTH ONCE DAILY FOR 90 DAYS, Disp: , Rfl: diclofenac (Voltaren) 75 mg EC tablet, , Disp: , Rfl: estradiol (Estrace) 0.5 mg tablet, 1 tablet Orally Once a day, Disp: , Rfl: lisinopril 40 mg tablet, Take 40 mg by mouth in the morning and at bedtime., Disp: , Rfl: omeprazole (PriLOSEC) [address] capsule, , Disp: , Rfl: simvastatin (Zocor) 20 mg tablet, 1 tablet in the evening Orally Once a day, Disp: , Rfl: Synthroid 50 mcg tablet, , Disp: , Rfl: amLODIPine (Norvasc) 5 mg tablet, Take 1 tablet (5 mg) by mouth in the morning., Disp: 30 tablet, Rfl: 1 Physical Exam Constitutional: Appearance: Normal appearance. Cardiovascular: Rate and Rhythm: Normal rate and regular rhythm. Pulmonary: Effort: Pulmonary effort is normal. No respiratory distress. Breath sounds: No wheezing or rales. Skin: General: Skin is warm and dry. Neurological: General: No focal deficit present. Mental Status: He is alert and oriented to person, place, and time. Labs: 02/16/2023 Sodium 139, potassium 4.7, chloride 104, CO2 25.9, BUN 24, serum creatinine 0.8, estimated GFR greater than 60%, AST 50, ALT 63 Hemoglobin A1c 4.8% 02/07/2023 WBC 4.4, hemoglobin 11.8, hematocrit 35.7, platelets 166 Sodium 135, potassium 4.1, chloride 100, CO2 28.7, BUN 20, serum creatinine 0.8 TSH 1.312 (normal) Testing/Procedures: No echocardiogram results found for the past 14 days No echocardiogram results found for the past 12 months No results found for this or any previous visit (from the past 4464 hour(s)). ASSESSMENT/PLAN: Diagnosis Plan 1. Dyspnea on exertion Complete Echo (TTE) w/wo Imaging Agent, Strain, 3D, Bubble Study 2. Essential hypertension ECG 12 lead amLODIPine (Norvasc) 5 mg tablet 3. Mixed hyperlipidemia 1. Hypertension -She reports mainly elevated diastolic pressures. Will decrease her lisinopril to 40 mg daily, continue carvedilol 25 mg twice daily, and start amlodipine 5 mg daily. She will continue home monitoring with a target blood pressure around 120/70. Additionally will obtain an echocardiogram to evaluate for end organ target damage related to longstanding hypertension. Will follow echo results and response to medication adjustments in about a month. 2. Dyspnea on exertion -Likely related to deconditioning given persistence with stairs but not with routine activity. Will obtain echocardiogram as above. Recent labs reviewed, were unremarkable. 3. Hyperlipidemia -Maintained on simvastatin, following with PCP for management. she was recently noted to have elevated liver enzymes, she has repeat labs thro (more content not included)... [facility] 12-13-2021 History of Present illness Narrative 66 yo with history of allergy and asthma. Symptoms are improved on Advair 250 BID with rare albuterol use. She has grass, tree and ragweed as well as pet allergy on immunocap 12/13/21. [id number] [address] Work Phone: 11-15-2021 Note PROCEDURE: XR ANKLE RT MIN 3 VIEWS HISTORY: Pain of right ankle joint COMPARISON: Right foot 10/10/2021, XR ankle right 06/09/2015 FINDINGS: BONES:Loss of the plantar arch and degenerative bone beaking at the talonavicular joint. Unremarkable ankle joint. SOFT TISSUES:No visible soft tissue swelling. EFFUSION:None visible. OTHER: Negative. IMPRESSION: 1. Pes planus and degenerative joint disease of the midfoot. 2. Unremarkable ankle joint. Electronically authenticated by: ELVA MELISSA Date: 2021-11-15 18:44 [facility] [place] 10-19-2021 Note PROCEDURE: XR FOOT R T MIN 3 VIEWS COMPARISON: None. HISTORY: Pain in right foot FINDINGS: BONES:Flattening of the plantar arch. No acute fracture or dislocation. Mild degenerative changes with joint space narrowing and marginal osteophyte formation most significant along the talonavicular joint and first metatarsal-phalangeal joint. Mild hallux valgus. SOFT TISSUES:Negative. No visible soft tissue swelling. EFFUSION:None visible. OTHER: Negative. IMPRESSION: Mild degenerative changes most significant at the talonavicular and first metatarsal-phalangeal joint Electronically authenticated by: SAE LOPEZ Date: 2021-10-19 07:23 [facility] [place] 09-21-2021 History of Present illness Narrative Pt here to discuss allergy symptoms. Patient has seen an wet pour supervisor in the past, last tested in 2010. Patient states seasonal and environmental allergies. Patient t is on Zyrtec-D and Benadryl as needed. Takes Zyrtec D in the morning, last this a.m.She had a shot in September for her allergy which she thinks was a steroid.She did have her Pneumovax a couple months ago.Patient did see an wet pour supervisor in early 2000. Was on shots 2-3 yrs. She felt it helped.Never diagnosed with asthmaSmokes occasionally. She did smoke regular in the past.Uses daily albuterol.She is worried about dog allergy. She has one dog.Patient is retired as a nurse.She worked at [employer].Moved into a new home a few years ago. Had Covid in 2019, and still feels she has some residula taste and smell issues. [id number] [address] Work Phone: 07-06-2021 Evaluation note Encounter Date Diagnosis Assessment Notes Jun, History of arthroplasty of left hip (ICD-10 - Z98.890) Rise presents today 6 months s/p left total hip arthroplasty. They are doing well. Physical exam is benign with a healthy appearing wound. She is taking no medications for this. She has no issues with this. She is return to activities without restrictions. I discussed ongoing treatment in regards to her long-term care of a total hip arthroplasty. At this point I would have her return to the 1 year follow-up she is having issues. Xrays reviewed with patient today. Patient is progressing well from this injury. We discussed the importance of continuing to work on range of motion and strength exercise. Activity as tolerated. Call with any questions or concerns. [facility] 11-01-2021 Evaluation note* Encounter Date Diagnosis Assessment Notes Treatment Notes Treatment Clinical Notes Feb, History of arthroplasty of left hip (ICD-10 - Z98.890) Robbie presents today 6 weeks s/p left total hip arthroplasty. They are doing well. Physical exam is benign with a healthy appearing wound. She is no longer taking pain medications and is almost done with therapy. She is having no issues and is very happy with where she is at. I will see them back at the 6-month anniversary from their surgery for reevaluation. We will repeat AP pelvis at that time Patient doing well. Finish physical therapy. Maintain hip precautions Feb, Other Patient has flat foot deformity on the right. We discussed referral to Dr Beltran in the future if she develops pain or further deformity [facility] 10-18-2021 Evaluation note* Encounter Date Diagnosis Assessment Notes Treatment Notes Treatment Clinical Notes Jan, Primary osteoarthritis of left hip (ICD-10 - M16.12) [facility] 10-04-2021 Evaluation note* Encounter Date Diagnosis Assessment Notes Treatment Notes Treatment Clinical Notes Jan, History of arthroplasty of left hip (ICD-10 - Z98.890) Robbie presents today 2 weeks s/p left total hip arthroplasty. They are doing well. Physical exam is benign with a healthy appearing wound. They are still taking pain medication but we did discuss the weaning process today. They are anticoagulated appropriately without any signs of deep vein thrombosis. We have given an order for outpatient therapy today. I will see them back at the 6-week anniversary from their surgery for reevaluation. No x-rays are needed at that time. Continue posterior hip precautions until next follow-up. Patient is progressing well. Continue physical therapy exercises and MARK precautions. Continue with medications as prescribed. A refill for Cyclobenzaprine and Oxycodone were given today along with directions of use. Continue with use of cane as needed. Instructed patient to call with any questions or concerns. [facility] 09-17-2021 Evaluation note* Encounter Date Diagnosis Assessment Notes Treatment Notes Treatment Clinical Notes Dec, Left hip pain (ICD-10 - M25.552) Dec, Primary osteoarthritis of left hip (ICD-10 - M16.12) Robbie presents with left hip DJD. At this juncture we have discussed the findings and diagnosis as well as reviewed appropriate imaging and performed interpretation of related testing and examination. Prior medical notes from Dr. Ambriz and history have been reviewed. At this time I would recommend treatment as below. The patient has been involved in our cooperative treatment plan and agrees to move forward with treatment at this time. Today we have discussed degenerative joint disease of the hip and its treatment. Imaging was explained and discussed with the patient. We discussed recommended conservative therapies including physical therapy, anti-inflammatory medications, and weight loss strategies. We also discussed other treatment options including cortisone injections. I have laid out the course of hip DJD including the end-stage treatment of total joint arthroplasty. The patient recognizes and understands our options and goals and we will move forward with our treatment. Robbie is a 55 old female who presents with left hip DJD recalcitrant to conservative measures. At this juncture we have discussed the findings and diagnosis. Surgical intervention is recommended. Surgical versus non-operative management have been discussed in detail and non-operative management was given as an option and exhausted. The risks of surgical intervention were given. Pre-operative optimization will be done prior to surgical procedure to limit jyoti-operative risks. I have discussed the planned procedure being a total hip arthroplasty via posterior approach, how and who performs the procedure, as well as the personnel involved. Cardiovascular, pulmonary, and other life-threatening episodes can occur during surgery although there is a low risk of these happening. Surgical risks including bleeding, neurovascular injury, wound closure problems and infection were discussed. Jyoti-operative risks including infection, bleeding, wound healing problems, and need for further surgery were discussed. It was discussed that there is a possibility of blood transfusion with any surgical procedure and the risks involved in receiving a blood transfusion. Possibility of, and need for, future bracing or DME use, physical or occupational therapy, mental therapy, rehabilitation, pain management and need for secondary procedures was discussed. There is possibility of component malfunction or wear and tear requiring future procedures. I have warned against smoking and the use of tobacco products due to the risks associated with them, in particular, poor healing. Obtaining or maintaining a healthy BMI was discussed. I have advised against the computer terminal operator use of narcotic pain medication. I have advised to follow all post-operative instructions in order to obtain the best outcome. Informed consent has been verbally affirmed and signed as indicated. Bedroom/bathroom location: First floor Steps to enter home: 3 BMI: 23 Diabetes mellitus: No Anticoagulation: No Anemia: No Hypercoagulability: No Immunosuppressive medications: No History of alcohol abuse: No Tobacco: Smoker Depression: No CHF: No Dementia: No HIV/AIDS: No Hepatitis: No We will plan for this to be an outpatient procedure and have home health set up. She is also being given a prescription for doxycycline for postoperative antibiotics. The patient has demonstrated all indications for proceeding with total hip replacement. The patient is experiencing severe disabling hip pain which is affecting daily life and ability to ambulate. Conservative means of treatment including NSAIDS and other medication as well as activity modification and gentle exercise have not been effective in relieving symptoms or are not indicated at this time. It is now reasonable to proceed with total hip replacement. Risks and benefits of procedure explained to patient; patient verbalizes understanding. Dec, Pre-op examination (ICD-10 - Z01.818) Dec, Tobacco abuse (ICD-10 - Z72.0) Patient has a tobacco use disorder we have discussed this today. We have discussed complications caused by tobacco use as well as increased risk with tobacco use. Tobacco cessation program at [facility] has been recommended and offered. This discussion was limited to 5 minutes. [facility] 03-31-[address] Ambriz referral for ongoing abd pain had liver,pancreas & GB US all were ok still having pain diarrhea is off and on had colonoscopy & EGD at [facility] aprox 6 years ago History of Present Illness 65 yo female with h/o COVID infection February,; since then has had intermittent episodes of diffuse generalized abdominal pain, describe as soreness; frequent watery stools; nausea, poor appetite; episodes last several weeks and have been increasing in severity; last episode, 2 weeks ago was the worst; goes on very light diet, was on Bentyl and anti-diarrheal medications; some early satiety; still has poor taste and smell; no blood in stools, rare emesis, no fevers; recent GB US and HIDA scan wnl; patient with remote h/o dysplastic polyp, last EGD and colonoscopy 05/2013, with evidence of bile reflux and normal colon; abdominal operations significant for appendectomy and GIRMA with BSO; on Diclofenac prn; no asa, no SBE prophylaxis; no fmhx of GI malignancy or IBD. Review of Systems PHQ Score Initial Depression Screen Score: 0 ROS - Provider Constitutional: no fever, no sweats, yes weight loss. Eyes: no glasses, no blurred vision, no visual loss. ENMT: no dentures, no hoarseness, no swallowing difficulties, no hearing loss, no ear infection(s),no nose bleeds. Cardiovascular: normal blood pressure, no chest pain, regular heartbeat, no heart murmur. Respiratory: no shortness of breath, no cough, no asthma, no wheezing. Gastrointestinal: yes nausea, no vomiting, yes diarrhea, no constipation, no blood in stool, yes change in bowel habits, moderate abdominal pain, no hepatitis. Genitourinary: no kidney stones, no urine infection, no dysuria. Musculoskeletal: no pain, no weakness. Skin: no changing moles, no rash, no skin lumps. Neurologic: no seizures, no epilepsy, no headache. Psychiatric: no emotional or psychiatric problem. Heme/Lymph: no bleeding problems, no anemia, no blood clots, no transfusions. Allergy/Immunologic: no swollen lymph nodes/glands, no IV drug abuse. Other: Additional ROS info: Except as noted in the above Review of Systems and in the History of Present Illness, all other systems have been reviewed and are negative or noncontributory. Physical Exam Vitals & Measurements T: 36.4 ?C (Oral) BP: 132/74 HT: 175.26 cm HT: 175.3 cm WT: 73.55 kg WT: 73.5 kg BMI: 23.95 HEENT: normal conjunctiva, sclera clear, no scleral icterus, EOM intact, PERRLA, oral mucosa moist without lesions. Neck: trachea midline, no mass, symmetric, no thyromegaly or nodules, no adenopathy Respiratory: lungs CTA, respirations non labored. Cardiovascular: regular rate and rhythm, no murmur, no pedal edema or varicosities. Gastrointestinal: soft, non distended, mild tenderness, diffuse, no peritoneal signs; no masses, nopalpable hernias, diastasis recti no, no hepatosplenomegaly; normal bs Lymphatic: no cervical adenopathy, no axillary adenopathy, Musculoskeletal: normal gait, digits and nails without infection, nodes, cyanosis, clubbing. Skin: no rashes, no lesions, no ulcers, no subcutaneous nodules, induration. Psychiatric/Neuro: oriented to time, place, person, judgement normal, affect appropriate for age, insight intact, no focal deficits. Tests: labs reviewed, x-rays reviewed, review of old records completed, Discussed surgical options, risks, and possible complications with patient. Assessment/Plan 1. Abdominal pain, generalized (R10.84: Generalized abdominal pain) plan EGD and colonoscopy under anesthesia for further evaluation; informed consent obtained. Will also obtain Abd/pelvic ct scan with contrast for further evaluation; will call patient with results; call sooner if problems/questions. Ordered: CT Abdomen/Pelvis w/ Contrast 2. Nausea (R11.0: Nausea) see # 1 Ordered: CT Abdomen/Pelvis w/ Contrast 3. Diarrhea (R19.7: Diarrhea, unspecified) see # 1 Ordered: CT Abdomen/Pelvis w/ Contrast 4. Early satiety (R68.81: Early satiety) see # 1 5. Weight loss, unintentional (R63.4: Abnormal weight loss) see # 1 Follow-up No qualifying data available Patient Education Upper Endoscopy, Adult Colonoscopy, Adult Problem List/Past Medical History Ongoing Abdominal pain, generalized Arthralgia Asthma Chronic GERD Diarrhea Early satiety Elevated liver enzymes Hair loss Hoarseness Hx of colonic polyps Hypothyroidism Nausea RUQ abdominal pain Spondylosis of lumbar spine Weight loss, unintentional Historical No qualifying data Procedure/Surgical History Appendectomy, Total hysterectomy. Medications Advair Discus 100 mcg-50 mcg Powder, 1 puff(s), Inhalation, BID alprazolam 0.25 mg oral tablet, disintegrating, 0.25 mg= 1 tab(s), Oral, TID, PRN carisoprodol 350 mg Tab, Oral, QID cetirizine-pseudoephedrine 5 mg-120 mg ER Tab, 1 tab(s), Oral, BID Diclofenac 75mg Tab-DR, Oral, BID dicyclomine 20 mg Tab, Oral, QID ibuprofen 800 mg Tab, 80 (more content not included)...[facility] HospitalComment on above:Result Comment: Electronically Signed By: SANDRA AMARO, Jaden Palmer\Date and Time Signed: 07/21/20 15:25 [id number] NoteUpper Endoscopy, Adult Upper endoscopy is a procedure to look inside the upper GI (gastrointestinal) tract. The upper GI tract is made up of: ? The part of the body that moves food from your mouth to your stomach (esophagus). ? The stomach. ? The first part of your small intestine (duodenum). This procedure is also called esophagogastroduodenoscopy (EGD) or gastroscopy. In this procedure, your health care provider passes a thin, flexible tube (endoscope) through your mouth and down your esophagus into your stomach. A small camera is attached to the end of the tube. Images from the camera appear on a monitor in the exam room. During this procedure, your health care provider may also remove a small piece of tissue to be sent to a lab and examined under a microscope (biopsy). Your health care provider may do an upper endoscopy to diagnose cancers of the upper GI tract. You may also have this procedure to find the cause of other conditions, such as: ? Stomach pain. ? Heartburn. ? Pain or problems when swallowing. ? Nausea and vomiting. ? Stomach bleeding. ? Stomach ulcers. Tell a health care provider about: ? Any allergies you have. ? All medicines you are taking, including vitamins, herbs, eye drops, creams, and hcum-orf-fskjwqq medicines. ? Any problems you or family members have had with anesthetic medicines. ? Any blood disorders you have. ? Any surgeries you have had. ? Any medical conditions you have. ? Whether you are or may be . What are the risks? Generally, this is a safe procedure. However, problems may occur, including: ? Infection. ? Bleeding. ? Allergic reactions to medicines. ? A tear or hole (perforation) in the esophagus, stomach, or duodenum. What happens before the procedure? Staying hydrated Follow instructions from your health care provider about hydration, which may include: ? Up to 2 hours before the procedure ? you may continue to drink clear liquids, such as water, clear fruit juice, black coffee, and plain tea. Eating and drinking restrictions Follow instructions from your health care provider about eating and drinking, which may include: ? 8 hours before the procedure ? stop eating heavy meals or foods, such as meat, fried foods, or fatty foods. ? 6 hours before the procedure ? stop eating light meals or foods, such as toast or cereal. ? 6 hours before the procedure ? stop drinking milk or drinks that contain milk. ? 2 hours before the procedure ? stop drinking clear liquids. Medicines Ask your health care provider about: ? Changing or stopping your regular medicines. This is especially important if you are taking diabetes medicines or blood thinners. ? Taking medicines such as aspirin and ibuprofen. These medicines can thin your blood. Do not take these medicines unless your health care provider tells you to take them. ? Taking iapi-zjs-hajyfed medicines, vitamins, herbs, and supplements. General instructions ? Plan to have someone take you home from the hospital or clinic. ? If you will be going home right after the procedure, plan to have someone with you for 24 hours. ? Ask your health care provider what steps will be taken to help prevent infection. What happens during the procedure? ? An IV will be inserted into one of your veins. ? You may be given one or more of the following: ? A medicine to help you relax (sedative). ? A medicine to numb the throat (local anesthetic). ? You will lie on your left side on an exam table. ? Your health care provider will pass the endoscope through your mouth and down your esophagus. ? Your health care provider will use the scope to check the inside of your esophagus, stomach, and duodenum. Biopsies may be taken. ? The endoscope will be removed. The procedure may vary among health care providers and hospitals. What happens after the procedure? ? Your blood pressure, heart rate, breathing rate, and blood oxygen level will be monitored until you leave the hospital or clinic. ? Do not drive for 24 hours if you were given a sedative during your procedure. ? When your throat is no longer numb, you may be given some fluids to drink. ? It is up to you to get the results of your procedure. Ask your health care provider, or the department that is doing the procedure, when your results will be ready. Summary ? Upper endoscopy is a procedure to look inside the upper GI tract. ? During the procedure, an IV will be inserted into one of your veins. You may be given a medicine to help you relax. ? A medicine will be used to numb your throat. ? The endoscope will be passed through your mouth and down your esophagus. This information is not intended to replace advice given to you by your health care provider. Make sure you discuss any questions you have with your health care provider. Document Released: 04/06/2001 Document Revised: 10/03/19 (more content not included)...[facility] HospitalEvaluation noteNo InformationNort Cel[facility] Other Evaluation noteNo assessment information available [facility] Work Phone: Hiswwsz general Narrative - Reported* Type Description Date Medical History htn Medical History high blood pressure Medical History asthma Medical History Hypothyroidism Medical History Arthritis Surgical History HYSTERECTOMY Surgical History APENDIX Surgical History colonoscopy Surgical History right post tibal repair Surgical History pelvic organ prolapse repair Surgical History right knee biopsy Surgical History breast biopsy Surgical History left total hip arthroplasty 12/23 05/13 [facility] Other History general Narrative - Reported* Type Description Date Medical History htn Medical History high blood pressure Medical History asthma Medical History Hypothyroidism Medical History Arthritis Surgical History HYSTERECTOMY Surgical History APPENDIX Surgical History colonoscopy Surgical History right post tibal repair Surgical History pelvic organ prolapse repair Surgical History right knee biopsy Surgical History breast biopsy Surgical History left total hip arthroplasty 12/23 05/13 Surgical History Right Foot/Ankle 2014 [facility] Other Summary Purpose Family History No Family History Records FoundUnknown Family Member Name Dates Details Family history of arthritis: Mother(V17.7, Z82.61) Status:Active Family history of hypertensi on: Mother(V17.49, Z82.49) Status:Active : Father Status:Active Relationship Condition Age at Onset Recorded Date/T refugio father Hypertension Unknown Kidney disorder Unknown Not Specified Arthritis Unknown Hypertension Unknown sister History of hip replacement Unknown Unknown Family Member Name Dates Details Family history of arthritis: Mother(V17.7, Z82.61) Status:Active Family history of hypertensi on: Mother(V17.49, Z82.49) Status:Active : Father Status:Active Advance Directives No Advanced Directives Records Found Advance Directive Response Recorded Date/ Time Advance Directives No December 01, 2020 10:50am Chief Complaint New patient here to discuss allergies, referred by PCP, Dr. Kory Ambriz, in [facility]/u for SOB and allergies Chief Complaint and Reason for Visit Chief Complaint Right PTTD M76.821 Additional Source Comments INFORMATION SOURCE (unrecogn ized section and content) DATE CREATED AUTHOR 11/03/2017 [facility] DATE CREATED AUTHOR AUTHOR'S ORGANIZ ATION [facility] DATE CREATED AUTHOR AUTHOR'S ORGANIZ ATION 12/22/2021 [facility] DATE CREATED AUTHOR AUTHOR'S ORGANIZ ATION 01/22/2022 [facility] DATE CREATED AUTHOR AUTHOR'S ORGANIZ ATION 01/22/2022 [employer] DATE CREATED AUTHOR AUTHOR[facility]S [facility]GANIZ ATION [facility]20[facility] DATE CREATED AUTHOR AUTHOR'S ORGANIZ ATION 03/31/2023 [facility] REASON FOR VISIT (unrecogniz ed section and content) Recheck Left HipmedicationRe check Left HipNo InformationRecheck Left HipRequestingH & P Left Total Hip Care Teams (unrecognized sec tion and content) Team Status: Inactive Member Role Status Dates Kory Ambriz MD Primary Care Provider Active Leila Martin PA-C Attending Provider Active Team Status: Active Member Role Status Dates Kory Ambriz MD Primary Care Provider Active Goals (unrecognized section and content) Goals may be documented in a n alternate section FOR RECORDS PERTAINING TO PATIENTS WHO ARE OR HAVE BEEN ENROLLED IN A CHEMICAL DEPENDENCY/SUBSTANCEABUSE PROGRAM, SOME INFORMATION MAY BE OMITTED. This clinical summary was aggregated from multiple sources. Caution should be exercised in using it in the provision of clinical care. This summary normalizes information from multiple sources, and as a consequence, information in this document may materially change the coding, format and clinical context of patient data. In addition, data may be omitted in some cases. CLINICAL DECISIONS SHOULD BE BASED ON THE PRIMARY CLINICAL RECORDS. [facility] provides no warranty or guarantee of the accuracy or completeness of information in this document.
[2023-04-14 11:24] VITALS: BP 113/76; PULSE 84; RESP 18; O2SAT 96
== END 2023-04-14 11:26 | disposition home or self-care (01) ==
LOC: ER 11:04
PROVIDERS: Emergency Provider Emergency Medicine; PCP Family Medicine
DX: Z48.89 Encounter for other specified surgical aftercare (principal); Z79.899 Other long term (current) drug therapy; Z79.890 Hormone replacement therapy; M19.90 Unspecified osteoarthritis, unspecified site; F32.A Depression, unspecified; J45.909 Unspecified asthma, uncomplicated; K21.9 Gastro-esophageal reflux disease without esophagitis; E78.00 Pure hypercholesterolemia, unspecified; I10 Essential (primary) hypertension; E03.9 Hypothyroidism, unspecified; Z86.16 Personal history of COVID-19; Z96.0 Presence of urogenital implants; Z90.710 Acquired absence of both cervix and uterus; Z90.49 Acquired absence of other specified parts of digestive tract; Z98.890 Other specified postprocedural states; Z96.649 Presence of unspecified artificial hip joint; Z87.891 Personal history of nicotine dependence
CPT/HCPCS: 29515; 99282

== ENCOUNTER 2023-05-03 14:39 | Outpatient (OUT) | payer OTHER, SELFPAY ==
--- NOTE | 2023-05-03 | XR_ITS ---
The [address] [address] Patient Name: ROBBIE KEMP MRN: [id number] date: 1955 Sex: F Assigned Patient Location: [facility] Current Patient Location: [facility] Accession/Order Number: [id number] Exam Date: 05/03/2023 15:00 Report Date: 05/03/2023 15:48 At the request of: MADELINE KOWALSKI Procedure: XR foot RT min 3V PROCEDURE: XR foot RT min 3V COMPARISON: HISTORY: RIGHT FOOT PAIN FINDINGS: BONES:Stable triple arthrodesis. Posterior calcaneal osteotomy transfixed with 2 cannulated screws. Anterior calcaneal osteotomy and wedged spacer placement. Medial cuneiform osteotomy and wedged spacer placement. No acute fracture, dislocation or mechanical failure. Lucency in the distal tibia likely from bone graft harvesting SOFT TISSUES:Negative. No visible soft tissue swelling. EFFUSION:None visible. OTHER: Negative. XR/XR foot RT min 3V IMPRESSION: Stable triple arthrodesis Electronically authenticated by: SAE LOPEZ Date: 05/03/2023 15:48
--- OUTSIDE RECORDS SUMMARY | 2023-05-03 14:45 | XMS_ITS | CCD ---
Author Name Unknown Address [address] [place] [address] Organization [facility] Care Team Providers Care Line Person Name Role Phone INGACIO CAN Unavailable Unavailable IGNACIO, CAN Unavailable Unavailable IGNACIO, CAN Unavailable Unavailable UNABLE TO VALIDATE Unavailable Unavailable Arvind Marie Unavailable Unknown, Referring Provider Unavailable Unav ailable Unavailable Unavailable MD Kory Ambriz Primary Care Provider GRETA Martin Attending Provider [phone] UNKNOWN, PCP Primary Care Unavailable Lamont Brown, [...] [HYDROMORPHONE] Drug Allergy 01-26-20 21 anaphylaxis [facility] (8 sources) Morphine Drug Allergy 01-26-20 21 rash [facility] (7 sources) Penicillin V Drug Allergy [facility] [employer] Other (7 sources) sulfaSALAzine Drug Allergy [facility] [employer] Other (4 sources) Penicillins; Translations: [Penicillins] Allergy to drug (finding) 01-26-20 21 Itching, [facility] (2 sources) Sulfamethoxazole; Translations: [sulfa] Drug Allergy Itching [address] Work Phone: (1 source) Sulfonamides (Antibiotic) Allergy to substance 01-26-20 21 [facility] (1 source) Ciprofloxacin Drug Allergy [facility] (2 sources) fentaNYL; Translations: [FENTANYL] Drug Allergy 04-23-19 15 [facility] (1 source) HYDROmorphone Drug Allergy 11-29-19 13 [facility] (1 source) Penicillins Drug allergy (disorder) 04-27-19 21 [facility] (1 source) Sulfonamides (Antibiotic) Drug allergy (disorder) 11-29-19 13 [facility] (1 source) Sulfanilamide; Translations: [SULFANILAMIDE] Drug Allergy 09-06-19 23 [facility] Medications Current Medications Medication Drug Class(es) [...] : 02-Jun-2021 Active take 1 tablet by [facility] every twenty-four hours Lisinopril 40 MG 1 [...] 12:00am Start: 07-07-2020 take 1 capsule by [facility] every twelve hours Omeprazole 40 MG Oral Capsule Delayed Release TAKE 1 CAPSULE BY MOUTH EVERY 12 HOURS Quantity: 60 Refills: 0 Ordered: 27-May-2021 DO Start : 07-Jul-2020 Complete take 1 capsule by [facility] once daily Omeprazole 40 MG 1 capsule [...] Range Facility Office Visiton 03-29-2023 Follow-up visit [id number] Robbie Kemp 1955 F Date Provider Department Center 03/29/2023 [facility] KELLY ALEXANDRA Benedict Family History Problem Relation Age of Onset Hypertension Mother Atrial fibrillation Sister Family Status - Relation Status Age at Mother Sister Alive Level of Service:24843 PA OFFICE/OUTPATIENT ESTABLISHED MOD MDM 30-39 MIN Normal [facility] Office Visiton 02-26-2023 Follow-up visit [id number] Robbie Kemp 1955 M Date Provider Department Center 02/26/2023 HUSSAIN SIMMONS CARD Louann Hos Family History Problem Relation Age of Onset Hypertension Mother Atrial fibrillation Sister Family Status - Relation Status Age at Mother Sister Alive Level of Service:12603 PA OFFICE/OUTPATIENT ESTABLISHED MOD MDM 30-39 MIN Normal [facility] MRI CSPINE WO CONon 07-12-19 23 MRI [...] ELVA MELISSA Date: 2022-07-11 11:43 Normal [facility] XR CSPINE MIN 4 VIEWSon XR CSPINE [...] ELVA MELISSA Date: 2022-06-28 09:12 Normal [facility] CBC AUTO DIFFon 05-23-2022 BASO # 0.1 103/ul Normal 0.0-0.1 [facility] Comment on above: Performed By: #### C BC #### [facility] [address] [address] [address] Natasha Celeste Basophils/100 WBC (Bld) 1.4 % Normal 0.2-2.0 [facility] Comment on above: Performed By: #### C BC #### [facility] [address] [place] [address] Dr. Natasha Celeste EO # 0.1 103/ul Normal 0.0-0.7 [facility] Comment on above: Performed By: #### C BC #### [facility] [address] [place] [address] Dr. Natasha Celeste Eosinophils/100 WBC (Bld) 2.4 % Normal 0.9-7.0 [facility] Comment on above: Performed By: #### C BC #### [facility] [address] [place] [address] Dr. Natasha Celeste Erythrocyte distribution width (RBC) [Ratio] 12.3 % Normal 11.0-15.0 [facility] Comment on above: Performed By: #### C BC #### [facility] [address] [place] [address] Dr. Natasha Celeste Hematocrit (Bld) [Volume fraction] 41.6 % Normal 36.0-48.0 [facility] Comment on above: Performed By: #### C BC #### [facility] [address] [place] [address] Dr. Natasha Celeste Hemoglobin (Bld) [Mass/Vol] 13.6 g/dL Normal 12.0-16.0 [facility] Comment on above: Performed By: #### C BC #### [facility] [address] [place] [address] Dr. Natasha Celeste IG # 0.02 10e3/ul Normal 0.00-0.03 [facility] Comment on above: Performed By: #### C BC #### [facility] [address] [place] [address] Dr. Natasha Celeste IG % 0.5 % Normal 0.0-0.5 [facility] Comment on above: Performed By: #### C BC #### [facility] [address] [place] [address] Dr. Natasha Celeste LYMPH # 1.4 103/ul Normal 1.2-3.8 [facility] Comment on above: Performed By: #### C BC #### [facility] [address] [place] [address] Dr. Natasha Celeste Lymphocytes/100 WBC (Bld) 33.3 % Normal 20.5-60.0 [facility] Comment on above: Performed By: #### C BC #### [facility] [address] [place] [address] Dr. Natasha Celeste MANUAL DIFF REQ NO Normal [facility] Comment on above: Performed By: #### C BC #### [facility] [address] [place] [address] Dr. Natasha Celeste MCH (RBC) [Entitic mass] 33.1 pg Normal 26.7-34.0 [facility] Comment on above: Performed By: #### C BC #### [facility] [address] [place] [address] Dr. Natasha Celeste MCHC (RBC) [Mass/Vol] 32.7 g/dL Normal 29.9-35.2 [facility] Comment on above: Performed By: #### C BC #### [facility] [address] [place] [address] Dr. Natasha Celeste MCV (RBC) [Entitic vol] 101.2 fL Critically high 81.0-99.0 [facility] Comment on above: Performed By: #### C BC #### [facility] [address] [place] [address] Dr. Natasha Celeste MONO # 0.4 103/ul Normal 0.3-0.8 [facility] Comment on above: Performed By: #### C BC #### [facility] [address] [place] [address] Dr. Natasha Celeste Monocytes/100 WBC (Bld) 10.4 % Normal 1.7-12.0 [facility] Comment on above: Performed By: #### C BC #### [facility] [address] [place] [address] Dr. Natasha Celeste NEUT # 2.2 103/ul Normal 1.4-6.5 [facility] Comment on above: Performed By: #### C BC #### [facility] [address] [address] [address] Natasha Celeste Neutrophils/100 WBC (Bld) 52.0 % Normal 43.0-75.0 [facility] Comment on above: Performed By: #### C BC #### [facility] [address] [address] [address] Natasha Celeste Platelet mean volume (Bld) [Entitic vol] 9.5 fL Normal 9.5-13.5 [facility] Comment on above: Performed By: #### C BC #### [facility] [address] [place] [address] Dr. Natasha Celeste PLT 186 103/ul Normal 150-450 [facility] Comment on above: Performed By: #### C BC #### [facility] [address] [place] [address] Dr. Natasha Celeste RBC 4.11 106/ul Critically low 4.20-5.40 [facility] Comment on above: Performed By: #### C BC #### [facility] [address] [place] [address] Dr. Natasha Celeste WBC 4.2 103/ul Normal 4.0-11.0 [facility] Comment on above: Performed By: #### C BC #### [facility] [address] [place] [address] Dr. Natasha Celeste FREE THYROXINE INDEX T7on FTI 3.47 Normal 1.30-4.50 [facility] Comment on above: Performed By: #### V ITAD, IRON #### [facility] [address] [place] [address] Dr. Natasha Celeste T3U 35.0 % Normal 30.0-39.0 [facility] Comment on above: Performed By: #### V ITAD, IRON #### [facility] [address] [place] [address] Dr. Natasha Celeste T4 [Mass/Vol] 9.90 ug/dL Normal 4.80-13.90 [facility] Comment on above: Performed By: #### V ITAD, IRON #### [facility] [address] [address] [address] Natasha Celeste GLYCOHEMOGLOBIN A1Con 2022 ADA RECOMMENDATION SEE BELOW Normal [facility] Comment on above: Result Comment: ADA RECOMMENDED LIMIT 4.0 - 6.0 ADA THERAPEUTIC TARGET < 7.0 ACTION SUGGESTED > 7.0 Performed By: #### A 1C #### [facility] [address] [place] [address] Dr. Natasha Celeste Glucose [Mass/Vol] 97 mg/dL Normal [facility] Comment on above: Performed By: #### A 1C #### [facility] [address] [place] [address] Dr. Natasha Celeste HbA1c (Bld) [Mass fraction] 5.0 % Normal 4.5-6.2 [facility] Comment on above: Performed By: #### A 1C #### [facility] [address] [place] [address] Dr. Natasha Celeste IRONon 05-23-2022 Iron [Mass/Vol] 105.0 ug/dL Normal 50.0-170.0 [facility] Comment on above: Performed By: #### V ITAD, IRON #### [facility] [address] [place] [address] Dr. Natasha Celeste LIPID PROFILEon 05-23-2022 CHOL-HDL RATIO NORM SEE BELOW Normal [facility] Comment on above: Result Comment: 3.3 - 4.4 LOW RISK 4.4 - 7.1 AVERAGE RISK 7.1 - 11.0 MODERATE RISK >11.0 HIGH RISK Performed By: #### V ITAD, IRON #### [facility] [address] [place] [address] Dr. Natasha Celeste Cholesterol [Mass/Vol] 176 mg/dL Normal <=200 [facility] Comment on above: Performed By: #### V ITAD, IRON #### [facility] [address] [place] [address] Dr. Natasha Celeste Cholesterol in HDL [Mass/Vol] 70 mg/dL Critically high 40-60 [facility] Comment on above: Performed By: #### V ITAD, IRON #### [facility] [address] [address] [address] Natasha Celeste Cholesterol in LDL [Mass/Vol] 83.2 mg/dL Normal [facility] Comment on above: Performed By: #### V ITAD, IRON #### [facility] [address] [address] [address] Natasha Celeste Cholesterol.total/ Cholesterol in HDL [Mass ratio] 2.5 {ratio} Normal [facility] Comment on above: Performed By: #### V ITAD, IRON #### [facility] [address] [address] [address] Natasha Celeste HDL NORMAL > or = 60 mg/dl - LO W CARDIOVASCULAR RISK <40 mg/dl - HIGH CARDIOVASCULAR RISK Normal [facility] Comment on above: Performed By: #### V ITAD, IRON #### [facility] [address] [address] [address] Natasha Celeste LDL CALC NORMAL SEE BELOW Normal [facility] Comment on above: Result Comment: <100 mg/dl OPTIMAL 100 - 129 mg/dl NEAR OR ABOVE OPTIMAL 130 - 159 mg/dl BORDERLINE HIGH 160 - 189 mg/dl HIGH >190 mg/dl VERY HIGH Performed By: #### V ITAD, IRON #### [facility] [address] [address] [address] Natasha Celeste Triglyceride [Mass/Vol] 114 mg/dL Normal <=150 [facility] Comment on above: Performed By: #### V ITAD, IRON #### [facility] [address] [address] [address] Natasha Celeste VLDL CALC 22.8 mg/dL Normal [facility] Comment on above: Performed By: #### V ITAD, IRON #### [facility] [address] [address] [address] Natasha Celeste PROF 14(COMP METB)on 023 Albumin [Mass/Vol] 3.8 g/dL Normal 3.4-5.0 [facility] Comment on above: Performed By: #### V ITAD, IRON #### [facility] [address] [address] [address] Natasha Celeste Albumin/Globulin [Mass ratio] 1.0 {ratio} Normal [facility] Comment on above: Performed By: #### V ITAD, IRON #### [facility] [address] [address] [address] Natasha Celeste ALP [Catalytic activity/Vol] 74 U/L Normal 46-116 [facility] Comment on above: Performed By: #### V ITAD, IRON #### [facility] [address] [address] [address] Natasha Celeste ALT [Catalytic activity/Vol] 37 U/L Normal 14-59 [facility] Comment on above: Performed By: #### V ITAD, IRON #### [facility] [address] [place] [address] Dr. Natasha Celeste Anion gap [Moles/Vol] 14.7 mmol/L Normal [facility] Comment on above: Performed By: #### V ITAD, IRON #### [facility] [address] [place] [address] Dr. Natasha Celeste AST [Catalytic activity/Vol] 34 U/L Normal 15-37 [facility] Comment on above: Performed By: #### V ITAD, IRON #### [facility] [address] [place] [address] Dr. Natasha Celeste Bilirubin [Mass/Vol] 0.5 mg/dL Normal 0.2-1.0 [facility] Comment on above: Performed By: #### V ITAD, IRON #### [facility] [address] [place] [address] Dr. Natasha Celeste Calcium [Mass/Vol] 8.9 mg/dL Normal 8.5-10.1 [facility] Comment on above: Performed By: #### V ITAD, IRON #### [facility] [address] [place] [address] Dr. Natasha Celeste Chloride [Moles/Vol] 103 mmol/L Normal 98-107 [facility] Comment on above: Performed By: #### V ITAD, IRON #### [facility] [address] [place] [address] Dr. Natasha Celeste CO2 [Moles/Vol] 27.4 mmol/L Normal 21.0-32.0 [facility] Comment on above: Performed By: #### V ITAD, IRON #### [facility] [address] [address] [address] Natasha Celeste Creatinine [Mass/Vol] 0.69 mg/dL Normal 0.55-1.02 [facility] Comment on above: Performed By: #### V ITAD, IRON #### [facility] [address] [place] [address] Dr. Natasha Celeste EGFR-AF PERUVIAN >60 Normal >=60 [facility] Comment on above: Performed By: #### V ITAD, IRON #### [facility] [address] [place] [address] Dr. Natasha Celeste EGFR-NON AF PERUVIAN >60 Normal >=60 [facility] Comment on above: Performed By: #### V ITAD, IRON #### [facility] [address] [address] [address] Natasha Celeste Globulin (S) [Mass/Vol] 3.9 g/dL Normal [facility] Comment on above: Performed By: #### V ITAD, IRON #### [facility] [address] [place] [address] Dr. Natasha Celeste Glucose [Mass/Vol] 103 mg/dL Normal 74-106 [facility] Comment on above: Performed By: #### V ITAD, IRON #### [facility] [address] [address] [address] Natasha Celeste Potassium [Moles/Vol] 4.1 mmol/L Normal 3.5-5.1 [facility] Comment on above: Performed By: #### V ITAD, IRON #### [facility] [address] [place] [address] Dr. Natasha Celeste Protein [Mass/Vol] 7.7 g/dL Normal 6.4-8.2 [facility] Comment on above: Performed By: #### V ITAD, IRON #### [facility] [address] [place] [address] Dr. Natasha Celeste Sodium [Moles/Vol] 141 mmol/L Normal 136-145 [facility] Comment on above: Performed By: #### V ITAD, IRON #### [facility] [address] [place] [address] Dr. Natasha Celeste Urea nitrogen [Mass/Vol] 19.0 mg/dL Critically high 7.0-18.0 [facility] Comment on above: Performed By: #### V ITAD, IRON #### [facility] [address] [place] [address] Dr. Natasha Celeste Urea nitrogen/Creatinin e [Mass ratio] 27.5 mg/mg Normal [facility] Comment on above: Performed By: #### V ITLUIS, IRON #### [facility] [address] [place] [address] Dr. Natasha Celeste TSHon 05-23-2022 TSH 0.405 uIU/mL Normal 0.358-3.740 [facility] Comment on above: Performed By: #### T 7, TSH, CMP, LIPID #### [facility] [address] [place] [address] Dr. Natasha Celeste VITAMIN D 25 OHon 05-23-2022 VIT D 25-OH 37.2 ng/mL Normal [facility] Comment on above: Performed By: #### V BRANDO, IRON #### [facility] [address] [place] [address] Dr. Natasha Celeste VIT D RANGES SEE BELOW Normal [facility] Comment on above: Result Comment: <20 ng/mL Vit D deficient 20 - <30 ng/mL Vit D insufficient 30 - 100 ng/mL Vit D sufficient >100 ng/mL Potential Toxicity Performed By: #### V ITAD, IRON #### [facility] [address] [place] [address] Dr. Natasha Celeste Office Visit (Allergy/Immuno logy)on [...] for SOB and allergies History of Present Sx[place]lor34 yo with history of allergy and asthma. [...] TABLET BY MOUTH DAILY Zyrtec-D 5-120 MG [id number] 1 TABLET TWICE DAILY NEEDED. Vitals Vital Signs Recorded: [id number] 01:39PM Pwlvvxwxrzh07.1 F, Temporal Heart Rate88 Ucjwgzhdcbw22 Nsyrccrc804 Obgciwsdm01 Pinqdi724 lb BMI Pnbzzbuzmp53.3 kg/m2 BSA Calculated1.92 Tobacco Usea) Yes O2 Ajcleuhkum25, RA Physical Exam Constitutional General appearance: Well [...] masses. Pulmo (more content not included)... Normal [facility] [employer] Tobacco Screening.on 022 Tobacco use status CPHS a) Yes [id number]-Stwa carolyne Lara [address] Work Phone: RESPIRATORY ALLERGY PROFILE, IGE,ICon 12-13-2021 ALTERNARIA,IGE,IC 4.04 KU/L Abnormal <0.35 [facility] Comment on above: Result Comment: SEE IMMUNOCAP INTERP.IGE Performed By: #### I CPA2 #### [facility] [address] [place] [address] JOSE C,WHITE,IGE,IC 0.15 KU/L Normal <0.35 [facility] Comment on above: Result Comment: SEE IMMUNOCAP INTERP.IGE Performed By: #### I CPA2 #### [facility] [address] [place] [address] ASPERGILUS,IGE,IC 0.30 KU/L Normal <0.35 [facility] Comment on above: Result Comment: SEE IMMUNOCAP INTERP.IGE Performed By: #### I CPA2 #### [facility] [address] [place] [address] BIRCH,IGE,IC <0.10 Normal <0.35 [facility] Comment on above: Result Comment: SEE IMMUNOCAP INTERP.IGE Performed By: #### I CPA2 #### [facility] [address] [place] [id number] BOX ELDER,IGE,IC 0.56 KU/L Abnormal <0.35 [facility] Comment on above: Result Comment: SEE IMMUNOCAP INTERP.IGE Performed By: #### I CPA2 #### [place] [address] [place] [address] CAT EPI./DANDER,IGE,IC 1.97 KU/L Abnormal <0.35 [facility] Comment on above: Result Comment: SEE IMMUNOCAP INTERP.IGE Performed By: #### I CPA2 #### [facility] [address] [place] [address] CEDAR MTN/JUNIPER,IGE,IC 0.16 KU/L Normal <0.35 [facility] Comment on above: Result Comment: SEE IMMUNOCAP INTERP.IGE Performed By: #### I CPA2 #### [facility] [address] [place] [address] CLADOSPORIUM HERBARUM IGE,IC 0.38 KU/L Abnormal <0.35 [facility] Comment on above: Result Comment: SEE IMMUNOCAP INTERP.IGE Performed By: #### I CPA2 #### [facility] [address] [place] [id number] COCKROACH,IGE,IC <0.10 Normal <0.35 [facility] Comment on above: Result Comment: SEE IMMUNOCAP INTERP.IGE Performed By: #### I CPA2 #### [facility] [address] [place] [id number] COTTONWOOD,IGE,IC <0.10 Normal <0.35 [facility] Comment on above: Result Comment: SEE IMMUNOCAP INTERP.IGE Performed By: #### I CPA2 #### [facility] [address] [place] [id number] D.FARINA,IGE,IC <0.10 Normal <0.35 [facility] Comment on above: Result Comment: SEE IMMUNOCAP INTERP.IGE Performed By: #### I CPA2 #### [facility] [address] [place] [id number] D.PTERONYSSINUS,IG E,IC <0.10 Normal <0.35 [facility] Comment on above: Result Comment: SEE IMMUNOCAP INTERP.IGE Performed By: #### I CPA2 #### [facility] [address] [place] [address] DOG DANDER IGE,IC 3.91 KU/L Abnormal <0.35 [facility] Comment on above: Result Comment: SEE IMMUNOCAP INTERP.IGE Performed By: #### I CPA2 #### [facility] [address] [place] [address] ELM,IGE,IC 0.11 KU/L Normal <0.35 [facility] Comment on above: Result Comment: SEE IMMUNOCAP INTERP.IGE Performed By: #### I CPA2 #### [facility] [address] [place] [id number] SLOVAK PLANTAIN,IGE,IC <0.10 Normal <0.35 [facility] Comment on above: Result Comment: SEE IMMUNOCAP INTERP.IGE Performed By: #### I CPA2 #### [facility] [address] [place] [id number] GRASS,BERMUDA,IGE, IC <0.10 Normal <0.35 [facility] Comment on above: Result Comment: SEE IMMUNOCAP INTERP.IGE Performed By: #### I CPA2 #### [facility] [address] [place] [address] GRASS,MEERA,IGE, IC <0.10 Normal <0.35 [facility] Comment on above: Result Comment: SEE IMMUNOCAP INTERP.IGE Performed By: #### I CPA2 #### [facility] [address] [place] [id number] GRASS,[place] BLUE,IGE,IC 0.71 KU/L Abnormal <0.35 [facility] Comment on above: Result Comment: SEE IMMUNOCAP INTERP.IGE Performed By: #### I CPA2 #### [facility] [address] [place] [id number] GRASS,TIN,IGE,IC 0.70 KU/L Abnormal <0.35 [facility] Comment on above: Result Comment: SEE IMMUNOCAP INTERP.IGE Performed By: #### I CPA2 #### [facility] [address] [place] [id number] IMMUNOCAP IGE 238.0 KU/L High 0.0 - 214.0 [facility] Comment on above: Result Comment: Note : Omalizumab (Xolair, Genentech; humanized IgG1 antihuman IgE Fc) treatment does not significantly interfere with the accuracy of total IgE on the ImmunoCAP (icomply) platform. J Allergy Clin Immunol 2006;117:759-66). Allergens, parasitic diseases, smoking, and alcohol consumption have been reported to increase levels of total IgE in serum. Performed By: #### I CPA2 #### [facility] [address] [place] [address] LAMBS QUARTERS,IGE,IC 0.11 KU/L Normal <0.35 [facility] Comment on above: Result Comment: SEE IMMUNOCAP INTERP.IGE Performed By: #### I CPA2 #### [facility] [address] [place] [address] MULBERRY, WHITE, IGE,IC <0.10 Normal <0.35 [facility] Comment on above: Result Comment: SEE IMMUNOCAP INTERP.IGE Performed By: #### I CPA2 #### [facility] [address] [place] [address] OAK,IGE,IC <0.10 Normal <0.35 [facility] Comment on above: Result Comment: SEE IMMUNOCAP INTERP.IGE Performed By: #### I CPA2 #### [facility] [address] [place] [address] PECAN HICKORY,IGE,IC 0.17 KU/L Normal <0.35 [facility] Comment on above: Result Comment: SEE IMMUNOCAP INTERP.IGE Performed By: #### I CPA2 #### [facility] [address] [place] [address] PENICILLIUM,IGE,IC <0.10 Normal <0.35 [facility] Comment on above: Result Comment: SEE IMMUNOCAP INTERP.IGE Performed By: #### I CPA2 #### [facility] [address] [place] [address] PIGWEED,IGE,IC 0.17 KU/L Normal <0.35 [facility] Comment on above: Result Comment: SEE IMMUNOCAP INTERP.IGE Performed By: #### I CPA2 #### [place] [address] [place] [address] RAGWEED,SHORT,IGE, IC 0.88 KU/L Abnormal <0.35 [facility] Comment on above: Result Comment: SEE IMMUNOCAP INTERP.IGE Performed By: #### I CPA2 #### [facility] [address] [place] [id number] PALAUAN THISTLE,IGE,IC 0.44 KU/L Abnormal <0.35 [facility] Comment on above: Result Comment: SEE IMMUNOCAP INTERP.IGE Performed By: #### I CPA2 #### [facility] [address] [place] [id number] SHEEP SORREL,IGE,IC <0.10 Normal <0.35 [facility] Comment on above: Result Comment: SEE IMMUNOCAP INTERP.IGE Performed By: #### I CPA2 #### [facility] [address] [place] [id number] [place],MAPLE LEAF IGE,IC 0.12 KU/L Normal <0.35 [facility] Comment on above: Result Comment: SEE IMMUNOCAP INTERP.IGE Performed By: #### I CPA2 #### [facility] [address] [place] [id number] WALNUT TREE,IGE,IC 0.13 KU/L Normal <0.35 [facility] Comment on above: Result Comment: SEE IMMUNOCAP INTERP.IGE Performed By: #### I CPA2 #### [facility] [address] [place] [address] Laboratory - Allergyon 12-12 A. alternata IgE Qn (S) 4.04 {KU/L} Abnormal <0.35 LL-ARWA-[place] [address] Work Phone: Comment on above: SEE IMMUNOCAP INTERP .IGE A. fumigatus IgE Qn (S) 0.30 {KU/L} <0.35 KT-ISXO-[place] [address] Work Phone: Comment on above: SEE IMMUNOCAP INTERP .IGE [place] house dust mite IgE Qn (S) <0.10 <0.35 SW-THQK-Xkxu [place] 201 Work Phone: Comment on above: SEE IMMUNOCAP INTERP .IGE [place] IgE Qn (S) 0.12 {KU/L} <0.35 OK-RBZW-D[place]u [place] [address] Work Phone: Comment on above: SEE IMMUNOCAP INTERP .IGE Berm[place] grass IgE Qn (S) <0.10 <0.35 LW-ORYG-[place] [address] Work Phone: Comment on above: SEE IMMUNOCAP INTERP .IGE Boxelder IgE Qn (S) 0.56 {KU/L} Abnormal <0.35 QF-GCVJ-[place] [address] Work Phone: Comment on above: SEE IMMUNOCAP INTERP .IGE C. herbarum IgE Qn (S) 0.38 {KU/L} Abnormal <0.35 GL-AXKG-[place] [address] Work Phone: Comment on above: SEE IMMUNOCAP INTERP .IGE [place] IgE Qn (S) 0.13 {KU/L} <0.35 QI-ZMBC-[place] [address] Work Phone: Comment on above: SEE IMMUNOCAP INTERP .IGE Cat dander IgE Qn (S) 1.97 {KU/L} Abnormal <0.35 DW-KLAB-Pprv [place] [address] Work Phone: Comment on above: SEE IMMUNOCAP INTERP .IGE Cockroach IgE Qn (S) <0.10 <0.35 TX-SMLW-Wqof [place] [address] Work Phone: Comment on above: SEE IMMUNOCAP INTERP .IGE Common Pigweed IgE Qn (S) 0.17 {KU/L} <0.35 YM-PUCU-[place] [address] Work Phone: Comment on above: SEE IMMUNOCAP INTERP .IGE [place] IgE Qn (S) <0.10 <0.35 EV-AIWG-Jhsj [place] [address] Work Phone: Comment on above: SEE IMMUNOCAP INTERP .IGE Dog dander IgE Qn (S) 3.91 {KU/L} Abnormal <0.35 DL-XSVX-Xtga [place] [address] Work Phone: Comment on above: SEE IMMUNOCAP INTERP .IGE Guatemalan plantain IgE Qn (S) <0.10 <0.35 SG-ORYS-Qjgv [place] [address] Work Phone: Comment on above: SEE IMMUNOCAP INTERP .IGE house dust mite IgE Qn (S) <0.10 <0.35 YM-STYM-[place] [address] Work Phone: Comment on above: SEE IMMUNOCAP INTERP .IGE Go[place] IgE Qn (S) 0.11 {KU/L} <0.35 QW-PJWJ-[place] [address] Work Phone: Comment on above: SEE IMMUNOCAP INTERP .IGE Meera grass IgE Qn (S) <0.10 <0.35 WX-BMWF-Divf [place] [address] Work Phone: Comment on above: SEE IMMUNOCAP INTERP .IGE [place] blue grass IgE Qn (S) 0.71 {KU/L} Abnormal <0.35 FB-TQJU-[place]mg [place] B Work Phone: Comment on above: SEE IMMUNOCAP INTERP .IGE Mountain Juniper IgE Qn (S) 0.16 {KU/L} <0.35 PH-SCVE-[place]fpr [place] [address] Work Phone: Comment on above: SEE IMMUNOCAP INTERP .IGE P. notatum IgE Qn (S) <0.10 <0.35 JD-KBHT-[place] [address] Work Phone: Comment on above: SEE IMMUNOCAP INTERP .IGE Pecan or Wood Tree IgE Qn (S) 0.17 {KU/L} <0.35 XB-IGUY-Hrmc [place] [address] Work Phone: Comment on above: SEE IMMUNOCAP INTERP .IGE Saltwort IgE Qn (S) 0.44 {KU/L} Abnormal <0.35 MC-KSMA-Zoig [place] [address] Work Phone: Comment on above: SEE IMMUNOCAP INTERP .IGE Sheep [place] IgE Qn (S) <0.10 <0.35 [facility] [address] Work Phone: Comment on above: SEE IMMUNOCAP INTERP .IGE Silver Birch IgE Qn (S) <0.10 <0.35 [facility] [address] Work Phone: Comment on above: SEE IMMUNOCAP INTERP .IGE Reji IgG Qn (S) 0.70 {KU/L} Abnormal <0.35 [facility] B Work Phone: Comment on above: SEE IMMUNOCAP INTERP .IGE Total IgE RAST Qn (S) 238.0 {KU/L} above high threshold See Below [facility] [address] Work Phone: Comment on above: Reference Range: 0.0 - 214.0 Note: Omalizumab (Xolair, Lagiar; humanized IgG1 antihuman IgE Fc) treatment does not significantly interfere with the accuracy of total IgE on the ImmunoCAP (icomply) platform. J Allergy Clin Immunol 2006;117:759-66). Allergens, parasitic diseases, smoking, and alcohol consumption have been reported to increase levels of total IgE in serum. White Jose C IgE Qn (S) 0.15 {KU/L} <0.35 [facility] [address] Work Phone: Comment on above: SEE IMMUNOCAP INTERP .IGE White Elm IgE Qn (S) 0.11 {KU/L} <0.35 [facility] [address] Work Phone: Comment on above: SEE IMMUNOCAP INTERP .IGE White mulberry IgE Qn (S) <0.10 <0.35 [facility] [address] Work Phone: Comment on above: SEE IMMUNOCAP INTERP .IGE [place] IgE Qn (S) <0.10 <0.35 [facility] [address] Work Phone: Comment on above: SEE IMMUNOCAP INTERP .IGE No Panel Informationon 12-12 SEE COMMENT DN-JUGH-AfkdIdiro Work Phone: Comment on above: REFERENCE RANGE (IMM UNOCAP) IGE KU/L CLASS INTERPRETATION < 0.10 0 BELOW DETECTION 0.10- 0.34 0/1 EQUIVOCAL 0.35- 0.69 1 LOW POSITIVE 0.70- 3.49 2 MODERATE POSITIVE 3.50- 17.49 3 HIGH SFCFOMKC17.50- 49 4 VERY HIGH ZHQECTZH18 - 99 5 VERY HIGH POSITIVE >100 6 VERY HIGH POSITIVE 0.88 {KU/L} Abnormal <0.35 XY-GTNY-PqadIdiro Work Phone: Comment on above: SEE IMMUNOCAP INTERP .IGE Office Visit (Allergy/Immuno logy)on 12-12-2021 Follow-up visit Diagnoses/Problems Assessed Allergies (995.3) (T78.40XA) Itching (698.9) (L29.9) SOB (shortness of breath) on exertion (786.05) (R06.02) Orders Allergies Respiratory Allergy Profile Region 5, IC; Status:Active; Requested for:[id number]; SOB (shortness of breath) on exertion Start: [...] referred by PCP, Dr. Kory Ambriz, in [place], [place] History of Present IllnessPt here to discuss allergy symptoms. Patient has seen an sandwich peddler in the past, last tested in 2010. Patient states seasonal and environmental allergies. Patient t is on Zyrtec-D and Benadryl as needed. Takes Zyrtec D in the morning, last this a.m. She had a shot in September for her allergy which she thinks was a steroid. She did have her Pneumovax a couple months ago. Patient did see an sandwich peddler in early 2000. Was on shots 2-3 yrs. She felt it helped. Never diagnosed with asthma Smokes occasionally. She did smoke regular in the past. Uses daily albuterol. She is worried about dog allergy. She has one dog. Patient is retired as a nurse. She worked at [facility] [employer]. Moved into a new home a [...] TabletTAKE 1 TABLET DAILY. Zyrtec-D 5-120 MG TG58WOST 1 TABLET TWICE DAILY NEEDED. Vitals Vital Signs Recorded: 12Dec2021 10:13AM Wzcidyorexm96.1 F, Temporal Heart Rate89 Qouwavdiqsx79 Chgdpxih004 Jlomadywc53 Height5 ft 8 in Phwkkj731 lb BMI Cojwmtyzuw85.3 kg/m2 BSA Calculated1.92 Tobacco Usea) Yes Patient encouraged to stop using tobacco productsYes O2 Wbpefsgkhq07, RA Physical Exam Constitutional General appearance: Well [...] of bigg (more content not included)... Normal Thermal Nomad RESPIRATORY ALLERGY PROFILE, IGE,ICon 12-12-2021 IMMUNOCAP INTERP.IGE SEE COMMENT Normal [facility] Comment on above: Result Comment: REFE RENCE RANGE (IMMUNOCAP) IGE KU/L CLASS INTERPRETATION < 0.10 0 BELOW DETECTION 0.10- 0.34 0/1 EQUIVOCAL 0.35- 0.69 1 LOW POSITIVE 0.70- 3.49 2 MODERATE POSITIVE 3.50- 17.49 3 HIGH POSITIVE 17.50- 49 4 VERY HIGH POSITIVE 50 - 99 5 VERY HIGH POSITIVE >100 6 VERY HIGH POSITIVE Performed By: #### I CPA2 #### [facility] [address] [place] [address] Tobacco Screening.on 022 Tobacco use status CPHS a) Yes DA-OEMP-[place] [address] Work Phone: Tobacco Screening. Yes MP-WSP C- y [place] [address] Work Phone: MG MAMM SCREEN 3D DEREK CADon 09-30-2021 MG MAMM SCREEN 3D DEREK CAD Patient: ROBBIE KEMP Exam Date: 09/30/2021 : 1955 Gender:F Ordering : DR. YISSEL CARDOZO D.O. Admission #: [id number] Family : Order #: [id number] CLICK HERE TO VIEW EXAM RADIOLOGY REPORT [...] breast cancer at age 51. LOCATION: [facility] BREAST COMPOSITION: Heterogeneously dense,which may obscure small [...] MD on 09/30/2021 at 12:05 Normal [facility] XR hip LT min 2V(w/wo pelvis )*on 07-06-2021 XR hip LT min 2V(w/wo pelvis)* [facility] Main [place] [address] [place] [address] XRay Report Signed Patient: Robbie Kemp MR#: [id number] : 1955 Acct:[id number] Age/Sex: 66 / F ADM Date: 07/06/21 [place] [facility] [place]: Type: REG CLI Attending Dr: Arvind [...] Yecenia Walker M.D.07/06/2021 3:58 PM Dictation Location: [place] [address] Transcribed By: [facility] 07/06/21 1558 Dictated By: Yecenia Walker MD 07/06/21 1557 Signed By: 07/06/21 1558 Normal [facility] XR foot RT min 3V*on 022 XR foot RT min 3V* [facility] [place] [address] XRay Report Signed Patient: Robbie Kemp MR#: [id number] : 1955 Acct:[id number] Age/Sex: 66 / F ADM Date: 06/07/21 [place] [facility] [place]: Type: REG CLI Attending Dr: Benja [...] Tripp Johnson M.D.06/07/2021 1:29 PM Dictation Location: [place] [address] Transcribed By: [facility] 06/07/21 132 Dictated By: Tripp Johnson DO 06/07/211322 Signed By: 06/07/21 132 Normal [facility] B-Type Natriuretic Peptideon 01-25-2021 Natriuretic peptide B (Bld) [Mass/Vol] 66.0 pg/mL Normal 5-100 [facility] Comment on above: Result Comment: PERF ORMED BY: [facility] [address] [place] [id number] PATHOLOGIST DIRECTOR MONEY SHIRA PEREIRA M.D. Performed By: #### B BOWLING BALL MARKER, HS TROP, HEPATIC, BMP, CBC, PT, PTT ####[place] [address] [address] Basic Metabolic Panelon 10-0 Calcium [Mass/Vol] 9.5 mg/dL Normal 8.2-10.2 [facility] Comment on above: Performed By: #### B BOWLING BALL MARKER, HS TROP, HEPATIC, BMP, CBC, PT, PTT ####[place] [address] [place] [address] [facility] Chloride [Moles/Vol] 99 mmol/L Normal 95-114 [facility] Comment on above: Performed By: #### B BOWLING BALL MARKER, HS TROP, HEPATIC, BMP, CBC, PT, PTT ####[place] [address] [place] [address] [facility] CO2 [Moles/Vol] 24.7 mmol/L Normal 22.0-30.0 [facility] Comment on above: Performed By: #### B BOWLING BALL MARKER, HS TROP, HEPATIC, BMP, CBC, PT, PTT ####[address] [address] [facility] Creatinine [Mass/Vol] 0.73 mg/dL Normal 0.44-1.03 [facility] Comment on above: Performed By: #### B BOWLING BALL MARKER, HS TROP, HEPATIC, BMP, CBC, PT, PTT ####[place] [address] [place] [id number] [facility] Creatinine Clr Calc Pharmacy 78.54 [facility] Comment on above: Result Comment: PERF ORMED BY: [facility] [address] [place] [address] PATHOLOGIST DIRECTOR MONEY SHIRA PEREIRA M.D. Performed By: #### B BOWLING BALL MARKER, HS TROP, HEPATIC, BMP, CBC, PT, PTT ####[place] [address] [place] [id number] [facility] Estimated GFR ( Drea > 60 [facility] Comment on above: Result Comment: GFR estimated reference range: According to KDOQI guidelines, <60 ml/min/1.73m2 is sufficient to diagnose a patient with chronic kidney disease. Performed By: #### B BOWLING BALL MARKER, HS TROP, HEPATIC, BMP, CBC, PT, PTT ####[address] Estimated GFR (Non- Am > 60 [facility] Comment on above: Performed By: #### B BOWLING BALL MARKER, HS TROP, HEPATIC, BMP, CBC, PT, PTT ####[place] [id number] [facility] Glucose [Mass/Vol] 95 mg/dL Normal 70-100 [facility] Comment on above: Result Comment: [place] Glucose Reference Range is dependent on time and content of last meal. Glucose of more than 200 mg/dL in a nonstressed, ambulatory subject supports the diagnosis of Diabetes Mellitus. ADA recommended reference range Performed By: #### B BOWLING BALL MARKER, HS TROP, HEPATIC, BMP, CBC, PT, PTT ####[place] [id number] [facility] Potassium [Moles/Vol] 4.6 mmol/L Normal 3.5-5.1 [facility] Comment on above: Performed By: #### B BOWLING BALL MARKER, HS TROP, HEPATIC, BMP, CBC, PT, PTT ####[place] [id number] [facility] Sodium [Moles/Vol] 134 mmol/L Low 136-146 [facility] Comment on above: Performed By: #### B BOWLING BALL MARKER, HS TROP, HEPATIC, BMP, CBC, PT, PTT ####[facility] Urea nitrogen [Mass/Vol] 9 mg/dL Normal 9-23 [facility] Comment on above: Performed By: #### B BOWLING BALL MARKER, HS TROP, HEPATIC, BMP, CBC, PT, PTT ####[facility] Complete Blood Count Auto Di ffon 01-25-2021 Basophils (Bld) [#/Vol] 0.1 10*3/uL Normal 0.0-0.2 [facility] Comment on above: Result Comment: PERF ORMED BY: [place] [address] PATHOLOGIST DIRECTOR MONEY SHIRA PEREIRA M.D. Performed By: #### B BOWLING BALL MARKER, HS TROP, HEPATIC, BMP, CBC, PT, PTT #### [address] Basophils/100 WBC (Bld) 2.4 % Normal . [facility] Comment on above: Performed By: #### B BOWLING BALL MARKER, HS TROP, HEPATIC, BMP, CBC, PT, PTT #### [facility] [address] [place] [address] Eosinophils (Bld) [#/Vol] 0.2 10*3/uL Normal 0.0-0.45 [facility] Comment on above: Performed By: #### B BOWLING BALL MARKER, HS TROP, HEPATIC, BMP, CBC, PT, PTT #### [address] Eosinophils/100 WBC (Bld) 4.7 % Normal . [facility] Comment on above: Performed By: #### B BOWLING BALL MARKER, HS TROP, HEPATIC, BMP, CBC, PT, PTT #### [address] Erythrocyte distribution width (RBC) [Ratio] 12.4 % Normal 11.9-15.3 [facility] Comment on above: Performed By: #### B BOWLING BALL MARKER, HS TROP, HEPATIC, BMP, CBC, PT, PTT #### [address] Hematocrit (Bld) [Volume fraction] 29.7 % Low 34.0-46.4 [facility] Comment on above: Performed By: #### B BOWLING BALL MARKER, HS TROP, HEPATIC, BMP, CBC, PT, PTT #### [address] Hemoglobin (Bld) [Mass/Vol] 10.3 g/dL Low 11.8-15.4 [facility] Comment on above: Performed By: #### B BOWLING BALL MARKER, HS TROP, HEPATIC, BMP, CBC, PT, PTT #### [address] Lymphocytes (Bld) [#/Vol] 1.3 10*3/uL Normal 1.00-4.8 [facility] Comment on above: Performed By: #### B BOWLING BALL MARKER, HS TROP, HEPATIC, BMP, CBC, PT, PTT #### [address] Lymphocytes/100 WBC (Bld) 25.3 % Normal . [facility] Comment on above: Performed By: #### B BOWLING BALL MARKER, HS TROP, HEPATIC, BMP, CBC, PT, PTT #### [address] MCH (RBC) [Entitic mass] 35.5 pg High 24.7-34.3 [facility] Comment on above: Performed By: #### B BOWLING BALL MARKER, HS TROP, HEPATIC, BMP, CBC, PT, PTT #### [address] MCV (RBC) [Entitic vol] 102.2 fL High 80-100 [facility] Comment on above: Performed By: #### B BOWLING BALL MARKER, HS TROP, HEPATIC, BMP, CBC, PT, PTT #### [address] Mean Corpuscular HGB Conc 34.7 g/dL Normal 32.0-35.0 [facility] Comment on above: Performed By: #### B BOWLING BALL MARKER, HS TROP, HEPATIC, BMP, CBC, PT, PTT #### [facility] [address] [place] [address] [place] Monocytes (Bld) [#/Vol] 0.4 10*3/uL Normal 0.0-0.8 [facility] Comment on above: Performed By: #### B BOWLING BALL MARKER, HS TROP, HEPATIC, BMP, CBC, PT, PTT #### [facility] [address] Monocytes/100 WBC (Bld) 6.9 % Normal . [facility] Comment on above: Performed By: #### B BOWLING BALL MARKER, HS TROP, HEPATIC, BMP, CBC, PT, PTT #### [place] [address] [place] Neutrophils (Bld) [#/Vol] 3.1 10*3/uL Normal 1.8-7.7 [facility] Comment on above: Performed By: #### B BOWLING BALL MARKER, HS TROP, HEPATIC, BMP, CBC, PT, PTT #### [place] [address] [place] Neutrophils/100 WBC (Bld) 60.7 % Normal . [facility] Comment on above: Performed By: #### B BOWLING BALL MARKER, HS TROP, HEPATIC, BMP, CBC, PT, PTT #### [place] [address] [place] Nucleated RBC/100 WBC (Bld) [Ratio] 0.0 % Normal 0-0.5 [facility] Comment on above: Performed By: #### B BOWLING BALL MARKER, HS TROP, HEPATIC, BMP, CBC, PT, PTT #### [place] [address] [place] Platelet mean volume (Bld) [Entitic vol] 6.1 fL Low 6.3-10.7 [facility] Comment on above: Performed By: #### B BOWLING BALL MARKER, HS TROP, HEPATIC, BMP, CBC, PT, PTT #### [place] [address] [place] Platelets (Bld) [#/Vol] 395 10*3/uL Normal 150-450 [facility] Comment on above: Performed By: #### B BOWLING BALL MARKER, HS TROP, HEPATIC, BMP, CBC, PT, PTT #### [facility] [address] RBC (Bld) [#/Vol] 2.91 10*6/uL Low 3.60-5.00 [facility] Comment on above: Performed By: #### B BOWLING BALL MARKER, HS TROP, HEPATIC, BMP, CBC, PT, PTT #### [facility] [address] WBC (Bld) [#/Vol] 5.1 10*3/uL Normal 4.5-11.0 [facility] Comment on above: Performed By: #### B BOWLING BALL MARKER, HS TROP, HEPATIC, BMP, CBC, PT, PTT #### [facility] [address] ECG 12 lead ECGon 01-25-2021 ECG 12 lead ECG [facility] [place] [address] Electrocardiograph Report Signed Patient: Robbie Kemp MR#: [id number] : 1955 Acct:[id number] Age/Sex: 65 / F ADM Date: 01/25/21 Loc: ER Room: Type: [facility] ER Attending Dr: Ordering Provider: Derrell [...] By Sharda Houston MD 01/25/211912 Normal [facility] Hepatic Panelon 01-25-2021 Albumin [Mass/Vol] 3.5 g/dL Normal 3.2-5.5 [facility] Comment on above: Performed By: #### B BOWLING BALL MARKER, HS TROP, HEPATIC, BMP, CBC, PT, PTT ####[address] [address] [facility] Albumin/Globulin [Mass ratio] 1.3 {ratio} Normal [facility] Comment on above: Performed By: #### B BOWLING BALL MARKER, HS TROP, HEPATIC, BMP, CBC, PT, PTT ####[address] [address] [facility] ALP [Catalytic activity/Vol] 78 U/L Normal 32-92 [facility] Comment on above: Performed By: #### B BOWLING BALL MARKER, HS TROP, HEPATIC, BMP, CBC, PT, PTT ####[address] [address] [facility] ALT [Catalytic activity/Vol] 18 U/L Normal 10-60 [facility] Comment on above: Performed By: #### B BOWLING BALL MARKER, HS TROP, HEPATIC, BMP, CBC, PT, PTT ####[address] [address] [facility] AST [Catalytic activity/Vol] 21 U/L Normal 10-42 [facility] Comment on above: Performed By: #### B BOWLING BALL MARKER, HS TROP, HEPATIC, BMP, CBC, PT, PTT ####[address] [address] [facility] Bilirubin [Mass/Vol] 0.5 mg/dL Normal 0.3-1.2 [facility] Comment on above: Performed By: #### B BOWLING BALL MARKER, HS TROP, HEPATIC, BMP, CBC, PT, PTT ####[address] [address] [facility] Bilirubin,Indirect Not performed Normal [facility] Comment on above: Performed By: #### B BOWLING BALL MARKER, HS TROP, HEPATIC, BMP, CBC, PT, PTT ####[address] [address] [facility] Bilirubin.indirect [Mass/Vol] mg/dL Normal 0.0-0.4 [facility] Comment on above: Performed By: #### B BOWLING BALL MARKER, HS TROP, HEPATIC, BMP, CBC, PT, PTT ####[facility] Globulin (S) [Mass/Vol] 2.7 g/dL Normal [facility] Comment on above: Performed By: #### B BOWLING BALL MARKER, HS TROP, HEPATIC, BMP, CBC, PT, PTT ####[place] [address] [address] Protein [Mass/Vol] 6.2 g/dL Normal 6.1-7.9 [facility] Comment on above: Performed By: #### B BOWLING BALL MARKER, HS TROP, HEPATIC, BMP, CBC, PT, PTT ####[place] [address] [address] Partial Thromboplastin Timeo n 01-25-2021 aPTT Coag (Bld) [Time] 34.1 s Normal 25.1-36.5 [facility] Comment on above: Result Comment: PERF ORMED BY: [facility] [address] [place] [address] PATHOLOGIST DIRECTOR MONEY SHIRA PEREIRA M.D. Performed By: #### B BOWLING BALL MARKER, HS TROP, HEPATIC, BMP, CBC, PT, PTT ####[address] Prothrombin Time INRon 01-25 INR Coag (PPP) [Relative time] 1.0 {INR} Normal [facility] Comment on above: Result Comment: INR [...] 3 - 4.5 Performed By: #### B BOWLING BALL MARKER, HS TROP, HEPATIC, BMP, CBC, PT, PTT #### [facility] [address] [place] [id number] [facility] PT Coag (PPP) [Time] 10.7 s Normal 9.0-12.9 [facility] Comment on above: Performed By: #### B BOWLING BALL MARKER, HS TROP, HEPATIC, BMP, CBC, PT, PTT #### [facility] [address] Troponin I High Sensitivityo n 01-25-2021 Troponin I High Sensitivity 7 pg/mL Normal 0-15 [facility] Comment on above: Result Comment: PERF ORMED BY: [place] [address] PATHOLOGIST DIRECTOR MONEY SHIRA PEREIRA M.D. Performed By: #### B BOWLING BALL MARKER, HS TROP, HEPATIC, BMP, CBC, PT, PTT ####[facility] [address]ex[address] [place] [id number] [facility] XR chest 2V*on 01-25-2021 XR chest 2V* [facility] Main [place] [address] [place] [address] XRay Report Signed Patient: Robbie Kemp MR#: [id number] : 1955 Acct:[id number] Age/Sex: 65 / F ADM Date: 01/25/21 Loc: ER Room: Type: [facility] ER Attending Dr: Ordering Provider: Derrell [...] Rodriguez Jr., M.D.01/25/2021 4:33 PM Dictation Location: [place] [address] Transcribed By: LUIZA 01/25/211632 Dictated By: Gautam Rodriguez Jr, MD 01/25/211631 Signed By: 01/25/211632 [facility] Connor 01-11-2021 L -------- -------- Specimen: [id number] Received: 01/11/21 Status: GIBRAN Vega Num: [id number] Spec Type: Surgical Subm Dr: Arvind Marie DO Tissues: A Femoral Head - Other than Fracture (L HIP) Procedures: JAMAL Downing/2, Gross/Micro L3, Decal -------- Patient Age/Sex Location Account Attending Physician -------- Robbie Kemp 65/F [place] [id number] Arvind Marie DO -------- SPEC NUM: [id number] RECD: 01/11/21 STATUS: GIBRAN HORNCarlos NUM: [id number] HENRIK: 01/11/21- SUBM DR: Arvind Marie DO ENTERED: 01/11/[address] [facility] [address]: SPEC TYPE: Surgical DEPT: S ORDERED: [...] bone curettings, bone fragments and soft tissue. Emergency Service Restorer sections are submitted following formalin fixation and decalcification in cassettes A 1 - A2. (JUAN M/SHAYNE) -------- Specimen: [id number] Received: 01/11/21 Status: ROSYStuart Vega Num: [id number] Spec Type: Surgical Subm Dr: Arvind Marie DO Tissues: A Femoral Head - Other than Fracture (L HIP) Procedures: JAMAL Stain/2, Gross/Micro L3, Decal -------- Patient: Robbie Kemp [id number] (Continued) -------- Specimen: [id number] Received: 01/11/21 (Continued) Signed (signature on file) Ghazal Burk MD 01/13/21 1554 -------- Specimen: [id number] Received: 01/11/21 Status: GIBRAN Vega Num: [id number] Spec Type: Surgical Subm Dr: Arvind Marie DO Tissues: A Femoral Head - Other than Fracture (L HIP) Procedures: JAMAL Stain/2, Gross/Micro L3, Decal -------- Patient: Robbie Kemp [id number] (Continued) -------- Specimen: [id number] Received: 01/11/21 (Continued) Microscopic Description Two glass slides with H E stained material have been examined. The microscopic findings support the above pathologic diagnosis. CPT Codes 59169, 55093 -------- -------- Specimen: [id number] Received: 01/11/21 Status: GIBRAN Vega Num: [id number] Spec Type: Surgical Subm Dr: Arvind Marie DO Tissues: A Femoral Head - Other than Fracture (L HIP) Procedures: HE Stain/2, Gross/Micro L3, Decal -------- Patient: Robbie Kemp [id number] (Continued) -------- Signed (signature on file) Ghazal Burk MD 01/13/21 1554 Normal [facility] Type and Screenon 01-11-2021 ABO and Rh group Nom (Bld) Blood group O Rh(D) positive Normal [facility] Comment on above: Result Comment: PERF ORMED BY: [place] [address] PATHOLOGIST DIRECTOR MONEY SHIRA PEREIRA M.D. XR pelvis 1-2Von 01-11-2021 XR pelvis 1-2V [facility] [place] [address] XRay Report Signed Patient: Robbie Kemp MR#: [id number] : 1955 Acct:[id number] Age/Sex: 65 / F ADM Date: 01/11/21 Loc: [place] Room: Type: [facility] Attending Dr: Arvind Marie DO Ordering [...] Rodriguez Jr., M.D.01/11/2021 2:28 PM Dictation Location: [place] [address] Transcribed By: [facility] 01/11/211427 Dictated By: Gautam Rodriguez Jr, MD 01/11/211426 Signed By: 01/11/211427 Normal [facility] COVID[facility] SARS-CoV-2 (COVID-19) RNA NOLVIA+probe Ql (Unsp spec) Negative Normal Negative [facility] Comment on above: Order Comment: Healt hcare Worker?: N Result Comment: Testing for SARS-CoV-2 by RT-PCR This test was developed and its performance characteristics determined by [employer]) and validated at the [facility]. This test has not been FDA [...] is terminated or revoked sooner. PERFORMED BY: [place] [address] PATHOLOGIST DIRECTOR MONEY SHIRA PEREIRA M.D. Performed By: #### C OVID 19 [facility] #### [place] [id number] [facility] XR pelvis 1-2Von 01-07-2021 XR pelvis 1-2V [facility] Main [place] [address] [place] [address] XRay Report Signed Patient: Robbie Kemp MR#: [id number] : 1955 Acct:[id number] Age/Sex: 65 / F ADM Date: 01/07/21 Loc[place] [facility] Room: Type: [facility] [place] Attending Dr: Arvind Marie DO Ordering Provider: [...] Yahir Landrum M.D.01/07/2021 12:23 PM Dictation Location: [place] [address] Transcribed By: [facility] 01/07/21 1223 Dictated By: Yahir Landrum II, MD 01/07/21 122 Signed By: 01/07/21 1223 Normal [facility] Basic Metabolic Panelon 09-0 Calcium [Mass/Vol] 9.4 mg/dL Normal 8.2-10.2 [facility] Comment on above: Result Comment: PERF ORMED BY: [address] [address] PATHOLOGIST DIRECTOR MONEY SHIRA PEREIRA M.D. Performed By: #### B MP, CBC #### [place] [id number] [facility] Chloride [Moles/Vol] 102 mmol/L Normal 95-114 [facility] Comment on above: Performed By: #### B MP, CBC #### [facility] [address] CO2 [Moles/Vol] 22.4 mmol/L Normal 22.0-30.0 [facility] Comment on above: Performed By: #### B MP, CBC #### [address] Creatinine [Mass/Vol] 0.60 mg/dL Normal 0.44-1.03 [facility] Comment on above: Performed By: #### B MP, CBC #### [address] Estimated GFR ( Drea > 60 Normal [facility] Comment on above: Result Comment: GFR estimated reference range: According to KDOQI guidelines, <60 ml/min/1.73m2 is sufficient to diagnose a patient with chronic kidney disease. Performed By: #### B MP, CBC #### [address] Estimated GFR (Non- Am > 60 Normal [facility] Comment on above: Performed By: #### B MP, CBC #### [address] Glucose [Mass/Vol] 98 mg/dL Normal 70-100 [facility] Comment on above: Result Comment: [place] om Glucose Reference Range is dependent on time and content of last meal. Glucose of more than 200 mg/dL in a nonstressed, ambulatory subject supports the diagnosis of Diabetes Mellitus. ADA recommended reference range Performed By: #### B MP, CBC #### [place] [address] [place] Potassium [Moles/Vol] 4.0 mmol/L Normal 3.5-5.1 [facility] Comment on above: Performed By: #### B MP, CBC #### [place] [address] [place] Sodium [Moles/Vol] 137 mmol/L Normal 136-146 [facility] Comment on above: Performed By: #### B MP, CBC #### [address] [place] [address] [place] Urea nitrogen [Mass/Vol] 10 mg/dL Normal 9-23 [facility] Comment on above: Performed By: #### B MP, CBC #### [address] Complete Blood Count Auto Di ffon 12-29-2020 Basophils (Bld) [#/Vol] 0.1 10*3/uL Normal 0.0-0.2 [facility] Comment on above: Result Comment: PERF ORMED BY: [place] [address] PATHOLOGIST DIRECTOR MONEY SHIRA PEREIRA M.D. Performed By: #### B MP, CBC #### [address] Basophils/100 WBC (Bld) 1.4 % Normal . [facility] Comment on above: Performed By: #### B MP, CBC #### [address] Eosinophils (Bld) [#/Vol] 0.1 10*3/uL Normal 0.0-0.45 [facility] Comment on above: Performed By: #### B MP, CBC #### [address] Eosinophils/100 WBC (Bld) 2.2 % Normal . [facility] Comment on above: Performed By: #### B MP, CBC #### [address] Erythrocyte distribution width (RBC) [Ratio] 12.0 % Normal 11.9-15.3 [facility] Comment on above: Performed By: #### B MP, CBC #### [address] Hematocrit (Bld) [Volume fraction] 36.1 % Normal 34.0-46.4 [facility] Comment on above: Performed By: #### B MP, CBC #### [address] Hemoglobin (Bld) [Mass/Vol] 12.5 g/dL Normal 11.8-15.4 [facility] Comment on above: Performed By: #### B MP, CBC #### [facility] [address] Lymphocytes (Bld) [#/Vol] 1.4 10*3/uL Normal 1.00-4.8 [facility] Comment on above: Performed By: #### B MP, CBC #### [facility] [address] Lymphocytes/100 WBC (Bld) 31.4 % Normal . [facility] Comment on above: Performed By: #### B MP, CBC #### [address] MCH (RBC) [Entitic mass] 36.7 pg High 24.7-34.3 [facility] Comment on above: Performed By: #### B MP, CBC #### [address] MCV (RBC) [Entitic vol] 105.8 fL High 80-100 [facility] Comment on above: Performed By: #### B MP, CBC #### [address] Mean Corpuscular HGB Conc 34.7 g/dL Normal 32.0-35.0 [facility] Comment on above: Performed By: #### B MP, CBC #### [place] [address] [place] Monocytes (Bld) [#/Vol] 0.4 10*3/uL Normal 0.0-0.8 [facility] Comment on above: Performed By: #### B MP, CBC #### [place] [address] [place] Monocytes/100 WBC (Bld) 8.9 % Normal . [facility] Comment on above: Performed By: #### B MP, CBC #### [address] Neutrophils (Bld) [#/Vol] 2.5 10*3/uL Normal 1.8-7.7 [facility] Comment on above: Performed By: #### B MP, CBC #### [facility] [address] Neutrophils/100 WBC (Bld) 56.1 % Normal . [facility] Comment on above: Performed By: #### B MP, CBC #### [facility] [address] [place] [address] [place] Nucleated RBC/100 WBC (Bld) [Ratio] 0.1 % Normal 0-0.5 [facility] Comment on above: Performed By: #### B MP, CBC #### [facility] [address] Platelet mean volume (Bld) [Entitic vol] 7.9 fL Normal 6.3-10.7 [facility] Comment on above: Performed By: #### B MP, CBC #### [facility] [address] [place] [address] [place] Platelets (Bld) [#/Vol] 195 10*3/uL Normal 150-450 [facility] Comment on above: Performed By: #### B MP, CBC #### [facility] [address] [place] [address] [place] RBC (Bld) [#/Vol] 3.41 10*6/uL Low 3.60-5.00 [facility] Comment on above: Performed By: #### B MP, CBC #### [facility] [address] [place] [address] [place] WBC (Bld) [#/Vol] 4.5 10*3/uL Normal 4.5-11.0 [facility] Comment on above: Performed By: #### B MP, CBC #### [facility] [address] [place] [address] [place] ECG 12 lead ECGon 12-29-2020 ECG 12 lead ECG [facility] Main [place] [address] [place] [address] Electrocardiograph Report Signed Patient: Robbie Kemp MR#: [id number] : 1955 Acct:[id number] Age/Sex: 65 / F ADM Date: 12/29/20 Loc: [place] [facility]: [facility]: Arvind Marie DO Ordering [...] By Marisel Camarena DO 12/30 Normal [facility] Urinalysison 12-29-2020 Appearance (U) Clear Normal Clear [facility] Comment on above: Order Comment: Name Collection Type:: Clean-Voided Midstream Performed By: #### U A #### [facility] [address] [place] [address] [place] Bilirubin,Urine Negative Normal Negative [facility] Comment on above: Order Comment: Name Collection Type:: Clean-Voided Midstream Performed By: #### U A #### [facility] [address] [place] [address] [place] Color (U) Yellow Normal Yellow [facility] Comment on above: Order Comment: Name Collection Type:: Clean-Voided Midstream Performed By: #### U A #### [facility] [address] [place] [id number] [place] Glucose Ql (U) Normal Normal Normal [facility] Comment on above: Order Comment: Name Collection Type:: Clean-Voided Midstream Performed By: #### U A #### [facility] [address] [place] [id number] [place] Ketones Ql (U) Negative Normal Negative [facility] Comment on above: Order Comment: Name Collection Type:: Clean-Voided Midstream Performed By: #### U A #### [facility] [address] [place] [address] Leukocyte esterase Test strip Ql (U) Negative Normal Negative [facility] Comment on above: Order Comment: Name Collection Type:: Clean-Voided Midstream Performed By: #### U A #### [facility] [address] [place] [address] Nitrite,Urine Negative Normal Negative [facility] Comment on above: Order Comment: Name Collection Type:: Clean-Voided Midstream Performed By: #### U A #### [address] Occult Blood,Urine Negative Normal Negative [facility] Comment on above: Order Comment: Name Collection Type:: Clean-Voided Midstream Result Comment: PERF ORMED BY: [place] [address] PATHOLOGIST DIRECTOR MONEY SHIRA PEREIRA M.D. Performed By: #### U A #### [facility] [address] [place] [address] pH (U) 5.5 [pH] Normal 5.0-9.0 [facility] Comment on above: Order Comment: Name Collection Type:: Clean-Voided Midstream Performed By: #### U A #### [facility] [address] [place] [address] Protein,Urine Negative Normal Negative [facility] Comment on above: Order Comment: Name Collection Type:: Clean-Voided Midstream Performed By: #### U A #### [facility] [address] [place] [address] Specificy [place],Urine 1.009 Normal 1.001-1.030 [facility] Comment on above: Order Comment: Name Collection Type:: Clean-Voided Midstream Performed By: #### U A #### [facility] [address] [place] [address] Urobilinogen,Urine Normal Normal Normal [facility] Comment on above: Order Comment: Name Collection Type:: Clean-Voided Midstream Performed By: #### U A #### [facility] [address] Ambulatory Clinical Summaryo n 08-10-2020 Ambulatory Clinical Summary {[id number]}CD:6143 68 Normal [facility] General Surgery Office/Clini c Noteon 08-10-2020 General [...] 08/10/2020 Family History Family history is negative [facility] Comment on above: Result Comment: Elec tronically Signed By: SANDRA AMARO, Jaden Palmer\Date and Time Signed: 08/10/20 15:40 EDT Outside Colonoscopyon 2020 Outside Colonoscopy [id number]:127 Normal [facility] Lab Reportson 08-02-2020 Lab Reports [id number]:127 Normal [facility] Provider Letter FTon 07-28 Provider Letter [facility] Kory Ambriz, [facility] [place] [address] Re: ROBBIE KEMP Date of : 1955 [...] persist. Sincerely, Jaden Soliz MD General Surgery [facility] Ambulatory Clinical Summaryo n 07-21-2020 Ambulatory Clinical Summary {[id number]}CD:6143 [id number] Normal [facility] Ambulatory Clinical Summary {[id number]}CD:6143 68 Normal [facility] Vital Signs Date Time Vital Sign Value Performing Clinician Facility 01-10-2022 13:39-0400 Body mass index (BMI) [Ratio] 26.3 kg/m2 Referring Provider Unknown [facility] Work Phone: 01-10-2022 13:39-0400 Body surface area Derived from formula 1.92 m2 Referring Provider Unknown [facility] [place] [address] Work Phone: 01-10-2022 13:39-0400 Body temperature 98.1 [degF] Referring Provider Unknown AX-FMWF[facility] [place] [address] Work Phone: 01-10-2022 13:39-0400 Body weight 78.47 kg Referring Provider Unknown JR-NKZD-[place] [place] [address] Work Phone: 01-10-2022 13:39-0400 Diastolic blood pressure 66 mm[Hg] Referring Provider Unknown KB-GSAH[facility]Rge[facility] [place] [address] Work Phone: 01-10-2022 13:39-0400 Heart rate 88 /min Referring Provider Unknown WA-WVMM[facility] [place] [address] Work Phone: 01-10-2022 13:39-0400 Respiratory rate 16 /min Referring Provider Unknown VB-XMYJ-E[facility] [place] [address] Work Phone: 01-10-2022 13:39-0400 SaO2% (BldA) [Mass fraction] 98 % Referring Provider Unknown TE-LMHD-Chnjz [place] [address] Work Phone: 01-10-2022 13:39-0400 Systolic blood pressure 128 mm[Hg] Referring Provider Unknown SG-MTEG-[facility]glk[facility] [place] [address] Work Phone: 12-12-2021 10:13-0400 Body height 172.72 cm Referring Provider Unknown ID-DJCM-Cmj[facility] [place] [address] Work Phone: 12-12-2021 10:13-0400 Body mass index (BMI) [Ratio] 26.3 kg/m2 Referring Provider Unknown CW-WNWZ-Fki[facility] [place] [address] Work Phone: 12-12-2021 10:13-0400 Body surface area Derived from formula 1.92 m2 Referring Provider Unknown YK-DIRA-Wgyvq [place] [address] Work Phone: 12-12-2021 10:13-0400 Body temperature 98.1 [degF] Referring Provider Unknown BF-NQUU-Qqdyy [place] [address] Work Phone: 12-12-2021 10:13-0400 Body weight 78.47 kg Referring Provider Unknown YO-EUJD-Tuhtv [place] [address] Work Phone: 12-12-2021 10:13-0400 Diastolic blood pressure 84 mm[Hg] Referring Provider Unknown IZ-ACTT-Ttrsd [place] [address] Work Phone: 12-12-2021 10:13-0400 Heart rate 89 /min Referring Provider Unknown BR-ZNOD-Gukrp [place] [address] Work Phone: 12-12-2021 10:13-0400 Respiratory rate 17 /min Referring Provider Unknown TU-XQFO-Njkne [place] [address] Work Phone: 12-12-2021 10:13-0400 SaO2% (BldA) [Mass fraction] 99 % Referring Provider Unknown NC-MWYC-Trddy [place] [address] Work Phone: 12-12-2021 10:13-0400 Systolic blood pressure 144 mm[Hg] Referring Provider Unknown HQ-IBOW-Yfamj [place] [address] Work Phone: 01-24-2021 09:45-0400 Body height Arvind Marie Other [facility] Other 01-24-2021 09:45-0400 Body mass index (BMI) [Ratio] 23.57 kg/m2 Arvind Marie Other [facility] Other 01-24-2021 09:45-0400 Body weight 70.31 kg Arvind Marie Other [facility] Other 01-07-2021 10:30-0400 Body height Arvind Marie Other [facility] Other 01-07-2021 10:30-0400 Body mass index (BMI) [Ratio] 23.57 kg/m2 Arvind Belinda Other [facility] Other 01-07-2021 10:30-0400 Body weight 70.31 kg Arvind Marie Other [facility] Other 01-07-2021 10:30-0400 Diastolic blood pressure 89 mm[Hg] Arvind Marie Other [facility] Other 01-07-2021 10:30-0400 Systolic blood pressure 117 mm[Hg] Arvind Marie Other [facility] Other Encounters Encounter Date Encounter Type Care Provider Facility Start: 03-29-2023 End: 03-29-2023 ambulatory [facility] Start: 03-29-2023 End: 03-29-2023 Encounter for other preprocedural examination [facility] Start: 02-26-2023 End: 02-26-2023 ambulatory [facility] Start: 07-10-2022 End: 07-11-[address] KORY AMBRIZ . Facility:[facility] Start: 06-27-2022 End: 06-28-[address] KORY AMBRIZ . Facility:[facility] Start: 05-23-2022 End: 05-24-[address] KORY AMBRIZ . Facility:[facility] Start: 01-10-2022 Office outpatient vi sit 15 minutes Referring Provider Unknown XF[facility]PGGE[facility] [place] [address] Work Phone: Start: 01-10-2022 ambulatory PCP UNKNOWN Facility:1 4342 Start: 12-12-2021 Office outpatient ne w 45 minutes Referring Provider Unknown GV-BNFR-Bqafu [place] [address] Work Phone: Start: 12-12-2021 ambulatory PCP UNKNOWN Facility:9 451 Start: 11-15-2021 End: 11-16-2021 ambulatory LEILA MARTIN Facility:[facility] Start: 11-03-2021 End: 11-03-2021 Discharged Recurring MD Kory Ambriz Work Phone: [facility] [place] Start: 10-18-2021 End: 10-19-2021 ambulatory LEILA MARTIN Facility:[facility] Start: 09-30-2021 End: 10-01-2021 ambulatory YISSEL CARDOZO Facility:[facility] Start: 08-03-2021 End: 08-03-2021 ambulatory Arvind Marie Other [facility] Other Start: 08-03-2021 Telephone encounter Arvind PORTER [facility] Start: 07-06-2021 End: 07-06-2021 ambulatory Arvind Marie Other [facility] Other Start: 07-06-2021 Office outpatient vi sit 15 minutes Arvind Marie [facility] Start: 03-04-2021 End: 03-04-2021 ambulatory Arvind Marie Other [facility] Other Start: 03-04-2021 Telephone encounter Arvind PORTER [facility] Start: 02-21-2021 Postop follow up vis it related to original px Arvind Belinda [facility] Start: 02-07-2021 Telephone encounter Arvind PORTER [facility] Start: 01-24-2021 Postop follow up vis it related to original px Arvind Marie [facility] Start: 01-07-2021 End: 01-07-2021 ambulatory Arvind Marie Other [facility] Other Start: 01-07-2021 Encounter for other preprocedural examination Arvind Marie [facility] Start: 01-07-2021 Office outpatient vi sit 25 minutes Arvind Marie [facility] Start: 10-18-2017 Patient encounter [facility]NA[employer] Start: 08-04-2017 End: 08-04-2017 Patient encounter [facility]RE Facility:[facility] Procedures Date Procedure Procedure Detail Performing Clinician Start: 01-11-2021 Antibody screen Comment on above: Result Comment: PERF ORMED BY: [facility] [address] [place] [address] PATHOLOGIST DIRECTOR MONEY SHIRA PEREIRA M.D. Appendectomy Referring Provi virgen [...] Nena Miguel, Status: Pen, Time: 2:10 PM ZQ[facility]XROW[facility] Work Phone: Immunizations Immunization Date Immunization Notes Care Provider [facility] 08-27-2020 Do not use COVID-19 Pfizer 2 dose Arvind Belinda Other [facility] 08-06-2020 Do not use COVID-19 Pfizer 2 dose Arvind Belinda Other [facility] Payers Date Payer Category Payer Unknown [id number] 2. [id number] 2020 Unknown [id number] 1955 Unknown [id number] 1955 Unknown [id number] 1955 Unknown [id number] 1955 Unknown [id number] 1955 Unknown [id number] 1955 Unknown [id number] 1955 Unknown [id number] [id number] 1955 Unknown [id number] 1955 Unknown [id number] Medicare Self-pay Self Pay [id number] Unknown Unknown 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[place] [id number] Social History Date Type Detail Facility Unknown if ever smoked [facility] Other Sex Assigned At Sex Assigned At Bir th [facility] Other Cigarette smoker Cigarette smoker -[facility] [facility] Work Phone: Start: 01-25-2021 Tobacco smoking stat [facility] Smoker (finding) [facility] Start: 1955 Sex Assigned At Female F [facility] Medical Equipment Procedure Code Equipment Code Equipment Origin al Text Equipment Identifier Dates 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 Coated hip femur prosthesis, modular [id number] FDA Start: 01-11-2021 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 Acetabular shell ()[id number] FDA Start: 01-11-2021 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 Non-constrained polyethylene acetabular liner ()[id number] FDA Start: 01-11-2021 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 Ceramic femoral head prosthesis ()[id number] FDA Start: 01-11-2021 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 Orthopaedic bone screw, non-bioabsorbable, sterile ()[id number] FDA Start: 01-11-2021 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 Orthopaedic bone screw, non-bioabsorbable, sterile ()[id number] FDA Start: 01-11-2021 Clinical Notes 07-21-2020 to 03-29-2023 Note Date & Type Note Facility 03-29-2023 Note [facility] Cardiology Clinic Note Chief Complaint: [...] Hyperlipidemia, Hypertension, Hypothyroidism, and RA (rheumatoid arthritis) ([facility] Surgical History He has a past surgical [...] and blood pressu (more content not included)... [facility] 02-26-2023 Note 176#New patient here to establish [...] All other systems reviewed and are negative. [facility] 02-26-2023 Note Cardiovascular Medic ine [facility] SUBJECTIVE No chief complaint on file. [...] disease) Hyperlipidemia Hypertension Hypothyroidism RA (rheumatoid arthritis) ([facility]) Past Surgical History: Procedure Laterality Date BREAST [...] repeat labs thro (more content not included)... [facility] 12-13-2021 History of Present illness Narrative 66 yo with history of allergy and asthma. Symptoms are improved on Advair 250 BID with rare albuterol use. She has grass, tree and ragweed as well as pet allergy on immunocap 12/13/21. [facility]VZJU[facility] [place] [address] Work Phone: 11-15-2021 Note PROCEDURE: [...] by: ELVA MELISSA Date: 2021-11-15 18:44 [facility] 10-19-2021 Note PROCEDURE: XR FOOT R T [...] by: SAE LOPEZ Date: 2021-10-19 07:23 [facility] 09-21-2021 History of Present illness Narrative Pt here to discuss allergy symptoms. Patient has seen an sandwich peddler in the past, last tested in 2010. Patient states seasonal and environmental allergies. Patient t is on Zyrtec-D and Benadryl as needed. Takes Zyrtec D in the morning, last this a.m.She had a shot in September for her allergy which she thinks was a steroid.She did have her Pneumovax a couple months ago.Patient did see an sandwich peddler in early 2000. Was on shots 2-3 yrs. She felt it helped.Never diagnosed with asthmaSmokes occasionally. She did smoke regular in the past.Uses daily albuterol.She is worried about dog allergy. She has one dog.Patient is retired as a nurse.She worked at [employer].Moved into a new home a few years ago. Had Covid in 2019, and still feels she has some residula taste and smell issues. [facility] [address] Work Phone: 07-06-2021 Evaluation note [...] tolerated. Call with any questions or concerns. [facility] Other 11-01-2021 Evaluation note* Encounter Date Diagnosis [...] if she develops pain or further deformity [facility] Other 10-18-2021 Evaluation note* Encounter Date Diagnosis Assessment Notes Treatment Notes Treatment Clinical Notes Jan, Primary osteoarthritis of left hip (ICD-10 - M16.12) [facility] Other 10-04-2021 Evaluation note* Encounter Date Diagnosis [...] to call with any questions or concerns. [facility] Other 09-17-2021 Evaluation note* Encounter Date Diagnosis [...] was discussed. 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 I [...] tobacco use. Tobacco cessation program at [facility] has been recommended and offered. This discussion was limited to 5 minutes. [facility] Other 03-31-[address] Ambriz referral for ongoing abd pain had liver,pancreas & GB US all were ok still having pain diarrhea is off and on had colonoscopy & EGD at [facility] aprox 6 years ago History of Present [...] 800 mg Tab, 80 (more content not included)...[facility] CenterComment on above:Result Comment: Electronically Signed By: SANDRA AMARO, Jaden Palmer\Date and Time Signed: 07/21/20 15:25 [id number] NoteUpper Endoscopy, Adult Upper endoscopy is a [...] including vitamins, herbs, eye drops, creams, and btof-twq-nzrqkne medicines. ? Any problems you or family [...] tells you to take them. ? Taking xgjp-fha-djodrnt medicines, vitamins, herbs, and supplements. General instructions [...] 04/06/2001 Document Revised: 10/03/19 (more content not included)...[facility] CenterEvaluation noteNo InformationNort Dabble DB Other Evaluation noteNo assessment information available [facility] Work Phone: Hiskpdn general Narrative - Reported* Type Description Date Medical History htn Medical History high blood pressure Medical History asthma Medical History Hypothyroidism Medical History Arthritis Surgical History HYSTERECTOMY Surgical History APENDIX Surgical History colonoscopy Surgical History right post tibal repair Surgical History pelvic organ prolapse repair Surgical History right knee biopsy Surgical History breast biopsy Surgical History left total hip arthroplasty 12/23 05/13 [facility] Other History general Narrative - Reported* Type [...] 12/23 05/13 Surgical History Right Foot/Ankle 2014 [facility] Other Summary Purpose Family History No Family [...] referred by PCP, Dr. 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 Additional Source Comments INFORMATION SOURCE (unrecogn ized section and content) DATE CREATED AUTHOR 11/03/2017 [employer] DATE CREATED AUTHOR AUTHOR'S ORGANIZ ATION 08/11/2020 [facility] DATE CREATED AUTHOR AUTHOR'S ORGANIZ ATION 12/22/2021 [facility] DATE CREATED AUTHOR AUTHOR'S ORGANIZ ATION 01/22/2022 [facility] DATE CREATED AUTHOR AUTHOR'S ORGANIZ ATION 01/22/2022 [employer] DATE CREATED AUTHOR AUTHOR'S ORGANIZ ATION 07/16/2022 [facility] DATE CREATED AUTHOR AUTHOR'S ORGANIZ ATION 03/31/2023 [facility] REASON FOR VISIT (unrecogniz ed section and [...] BE BASED ON THE PRIMARY CLINICAL RECORDS. [facility] provides no warranty or guarantee of the accuracy or completeness of information in this document.
== END 2023-05-03 14:40 | disposition home or self-care (01) ==
LOC: RAD 14:39
PROVIDERS: PCP Family Medicine; Visit Provider Podiatrist Foot & Ankle Surgery
DX: M21.41 Flat foot [pes planus] (acquired), right foot (principal); Z98.1 Arthrodesis status
CPT/HCPCS: 73630

== ENCOUNTER 2023-05-23 11:01 | Outpatient (OUT) | payer OTHER, SELFPAY ==
--- NOTE | 2023-05-23 | XR_ITS ---
[address] [address] Patient Name: ROBBIE KEMP MRN: [id number] date: 1955 Sex: F Assigned Patient Location: [facility] Current Patient Location: [facility] Accession/Order Number: [id number] Exam Date: 05/23/2023 11:08 Report Date: 05/23/2023 13:56 At the request of: MADELINE KOWALSKI Procedure: XR foot RT min 3V PROCEDURE: XR foot RT min 3V COMPARISON: 05/03/2023 HISTORY: RIGHT FOOT PAIN FINDINGS: BONES:Stable triple arthrodesis. Posterior calcaneal osteotomy transfixed with 2 cannulated screws. Osteotomies and spacer placement anterior calcaneus and medial cuneiform. No acute fracture, dislocation or mechanical failure SOFT TISSUES:Negative. No visible soft tissue swelling. EFFUSION:None visible. OTHER: Negative. XR/XR foot RT min 3V IMPRESSION: Stable triple arthrodesis Electronically authenticated by: SAE LOPEZ Date: 05/23/2023 13:56
== END 2023-05-23 11:02 | disposition home or self-care (01) ==
LOC: RAD 11:01
PROVIDERS: PCP Family Medicine; Visit Provider Podiatrist Foot & Ankle Surgery
DX: M25.571 Pain in right ankle and joints of right foot (principal); Z98.890 Other specified postprocedural states
CPT/HCPCS: 73630

== ENCOUNTER 2023-06-20 10:57 | Outpatient (OUT) | payer OTHER, SELFPAY ==
--- NOTE | 2023-06-20 | XR_ITS ---
[address] [address] Patient Name: ROBBIE KEMP MRN: [id number] date: 1955 Sex: F Assigned Patient Location: Current Patient Location: Accession/Order Number: [id number] Exam Date: 06/20/2023 11:05 Report Date: 06/20/2023 12:59 At the request of: MADELINE KOWALSKI Procedure: XR foot RT min 3V PROCEDURE: XR foot RT min 3V COMPARISON: 05/23/2023, 05/03/2023 HISTORY: RIGHT FOOT PAIN FINDINGS: BONES:Stable RRR 36. Posterior calcaneal osteotomy transfixed with 2 cannulated screws. Anterior calcaneal osteotomy with wedged spacer placement. Transverse osteotomy of the medial cuneiform with wedged spacer SOFT TISSUES:Negative. No visible soft tissue swelling. EFFUSION:None visible. OTHER: Negative. XR/XR foot RT min 3V IMPRESSION: Stable postsurgical changes Electronically authenticated by: SAE LOPEZ Date: 06/20/2023 12:59
--- OUTSIDE RECORDS SUMMARY | 2023-06-20 11:02 | XMS_ITS | CCD ---
Author Name Unknown Address [address] [place] [address] Organization [facility] Care Team Providers Care Wire Rope Sales Representative Name Role Phone IGNACIO CAN Unavailable Unavailable IGNACIO, CAN Unavailable Unavailable INGACIO, CAN Unavailable Unavailable UNABLE TO VALIDATE Unavailable Unavailable Arvind Marie Unavailable Unknown, Referring Provider Unavailable Unav ailable Unavailable Unavailable MD Kory Ambriz Primary Care Provider GRETA Martin Attending Provider [phone] UNKNOWN, PCP Primary Care Unavailable Lamont Brown, [...] Translations: [HYDROMORPHONE] Drug Allergy 01-26-20 21 anaphylaxis [facility] (8 sources) Morphine Drug Allergy 01-26-20 21 rash [facility] (7 sources) Penicillin V Drug Allergy [facility] Other (7 sources) sulfaSALAzine Drug Allergy [facility] Other (4 sources) Penicillins; Translations: [Penicillins] Allergy to drug (finding) 01-26-20 21 Itching, [facility] (2 sources) Sulfamethoxazole; Translations: [sulfa] Drug Allergy Itching [address] Work Phone: (1 source) Sulfonamides (Antibiotic) Allergy to substance 01-26-20 21 [facility] (1 source) Ciprofloxacin Drug Allergy [facility] (2 sources) fentaNYL; Translations: [FENTANYL] Drug Allergy 04-23-19 15 [facility] (1 source) HYDROmorphone Drug Allergy 11-29-19 13 The [facility] (1 source) Penicillins Drug allergy (disorder) 04-27-19 21 The [facility] (1 source) Sulfonamides (Antibiotic) Drug allergy (disorder) 11-29-19 13 The [facility] (1 source) Sulfanilamide; Translations: [SULFANILAMIDE] Drug Allergy 09-06-19 23 [facility] Repository Medications Current Medications Medication Drug [...] : 02-Jun-2021 Active take 1 tablet by [facility] every twenty-four hours Lisinopril 40 MG [...] 12:00am Start: 07-07-2020 take 1 capsule by [facility] every twelve hours Omeprazole 40 MG Oral Capsule Delayed Release TAKE 1 CAPSULE BY MOUTH EVERY 12 HOURS Quantity: 60 Refills: 0 Ordered: 27-May-2021 DO Start : 07-Jul-2020 Complete take 1 capsule by [facility] once daily Omeprazole 40 MG 1 capsule [...] Range Facility Office Visiton 03-29-2023 Follow-up visit [id number] Robbie Kemp 1955 F Date Provider Department Center 03/29/2023 [facility] KELLY ALEXANDRA Benedict Family History Problem Relation Age of Onset Hypertension Mother Atrial fibrillation Sister Family Status - Relation Status Age at Mother Sister Alive Level of Service:44298 ND OFFICE/OUTPATIENT ESTABLISHED MOD MDM 30-39 MIN Normal [facility] Office Visiton 02-26-2023 Follow-up visit [id number] Robbie Kemp 1955 M Date Provider Department Center 02/26/2023 HUSSAIN SIMMONS CARD [facility] Family History Problem Relation Age of Onset Hypertension Mother Atrial fibrillation Sister Family Status - Relation Status Age at Mother Sister Alive Level of Service:44881 ND OFFICE/OUTPATIENT ESTABLISHED MOD MDM 30-39 MIN Normal [facility] MRI CSPINE WO CONon 07-12-19 23 [...] narrowing C4-C5, C5-C6, C6-C7. Electronically authenticated by: LEVA MELISSA Date: 2022-07-11 11:43 Normal [facility] XR CSPINE MIN 4 VIEWSon XR CSPINE [...] ELVA MELISSA Date: 2022-06-28 09:12 Normal [facility] CBC AUTO DIFFon 05-23-2022 BASO # 0.1 103/ul Normal 0.0-0.1 [facility] Comment on above: Performed By: #### C BC #### [facility] [address] [address] [address] Natasha Celeste Basophils/100 WBC (Bld) 1.4 % Normal 0.2-2.0 [facility] Comment on above: Performed By: #### C BC #### [facility] [address] [place] [address] Dr. Natasha Celeste EO # 0.1 103/ul Normal 0.0-0.7 [facility] Comment on above: Performed By: #### C BC #### [facility] [address] [place] [address] Dr. Natasha Celeste Eosinophils/100 WBC (Bld) 2.4 % Normal 0.9-7.0 [facility] Comment on above: Performed By: #### C BC #### [facility] [address] [place] [address] Dr. Natasha Celeste Erythrocyte distribution width (RBC) [Ratio] 12.3 % Normal 11.0-15.0 [facility] Comment on above: Performed By: #### C BC #### [facility] [address] [place] [address] Dr. Natasha Celeste Hematocrit (Bld) [Volume fraction] 41.6 % Normal 36.0-48.0 [facility] Comment on above: Performed By: #### C BC #### [facility] [address] [place] [address] Dr. Natasha Celeste Hemoglobin (Bld) [Mass/Vol] 13.6 g/dL Normal 12.0-16.0 [facility] Comment on above: Performed By: #### C BC #### [facility] [address] [place] [address] Dr. Natasha Celeste IG # 0.02 10e3/ul Normal 0.00-0.03 [facility] Comment on above: Performed By: #### C BC #### [facility] [address] [place] [address] Dr. Natasha Celeste IG % 0.5 % Normal 0.0-0.5 [facility] Comment on above: Performed By: #### C BC #### [facility] [address] [place] [address] Dr. Natasha Celeste LYMPH # 1.4 103/ul Normal 1.2-3.8 [facility] Comment on above: Performed By: #### C BC #### [facility] [address] [place] [address] Dr. Natasha Celeste Lymphocytes/100 WBC (Bld) 33.3 % Normal 20.5-60.0 [facility] Comment on above: Performed By: #### C BC #### [facility] [address] [place] [address] Dr. Natasha Celeste MANUAL DIFF REQ NO Normal [facility] Comment on above: Performed By: #### C BC #### [facility] [address] [place] [address] Dr. Natasha Celeste MCH (RBC) [Entitic mass] 33.1 pg Normal 26.7-34.0 [facility] Comment on above: Performed By: #### C BC #### [facility] [address] [place] [address] Dr. Natasha Celeste MCHC (RBC) [Mass/Vol] 32.7 g/dL Normal 29.9-35.2 [facility] Comment on above: Performed By: #### C BC #### [facility] [address] [place] [address] Dr. Natasha Celeste MCV (RBC) [Entitic vol] 101.2 fL Critically high 81.0-99.0 [facility] Comment on above: Performed By: #### C BC #### [facility] [address] [place] [address] Dr. Natasha Celeste MONO # 0.4 103/ul Normal 0.3-0.8 [facility] Comment on above: Performed By: #### C BC #### [facility] [address] [place] [address] Dr. Natasha Celeste Monocytes/100 WBC (Bld) 10.4 % Normal 1.7-12.0 [facility] Comment on above: Performed By: #### C BC #### [facility] [address] [place] [address] Dr. Natasha Celeste NEUT # 2.2 103/ul Normal 1.4-6.5 [facility] Comment on above: Performed By: #### C BC #### [facility] [address] [address] [address] Natasha Celeste Neutrophils/100 WBC (Bld) 52.0 % Normal 43.0-75.0 [facility] Comment on above: Performed By: #### C BC #### [facility] [address] [address] [address] Natasha Celeste Platelet mean volume (Bld) [Entitic vol] 9.5 fL Normal 9.5-13.5 [facility] Comment on above: Performed By: #### C BC #### [facility] [address] [place] [address] Dr. Natasha Celeste PLT 186 103/ul Normal 150-450 [facility] Comment on above: Performed By: #### C BC #### [facility] [address] [place] [address] Dr. Natasha Celeste RBC 4.11 106/ul Critically low 4.20-5.40 [facility] Comment on above: Performed By: #### C BC #### [facility] [address] [place] [address] Dr. Natasha Cleeste WBC 4.2 103/ul Normal 4.0-11.0 [facility] Comment on above: Performed By: #### C BC #### [facility] [address] [place] [address] Dr. Natasha Celeste FREE THYROXINE INDEX T7on FTI 3.47 Normal 1.30-4.50 [facility] Comment on above: Performed By: #### V ITAD, IRON #### [facility] [address] [place] [address] Dr. Natasha Celeste T3U 35.0 % Normal 30.0-39.0 [facility] Comment on above: Performed By: #### V ITAD, IRON #### [facility] [address] [place] [address] Dr. Natasha Celeste T4 [Mass/Vol] 9.90 ug/dL Normal 4.80-13.90 The [facility] Comment on above: Performed By: #### V ITAD, IRON #### [facility] [address] [address] [address] Natasha Celeste GLYCOHEMOGLOBIN A1Con 2022 ADA RECOMMENDATION SEE BELOW Normal [facility] Comment on above: Result Comment: ADA RECOMMENDED LIMIT 4.0 - 6.0 ADA THERAPEUTIC TARGET < 7.0 ACTION SUGGESTED > 7.0 Performed By: #### A 1C #### [facility] [address] [place] [address] Dr. Natasha Celeste Glucose [Mass/Vol] 97 mg/dL Normal [facility] Comment on above: Performed By: #### A 1C #### [facility] [address] [place] [address] Dr. Natasha Celeste HbA1c (Bld) [Mass fraction] 5.0 % Normal 4.5-6.2 [facility] Comment on above: Performed By: #### A 1C #### [facility] [address] [place] [address] Dr. Natasha Celeste IRONon 05-23-2022 Iron [Mass/Vol] 105.0 ug/dL Normal 50.0-170.0 [facility] Comment on above: Performed By: #### V ITAD, IRON #### [facility] [address] [place] [address] Dr. Natasha Celeste LIPID PROFILEon 05-23-2022 CHOL-HDL RATIO NORM SEE BELOW Normal [facility] Comment on above: Result Comment: 3.3 - 4.4 LOW RISK 4.4 - 7.1 AVERAGE RISK 7.1 - 11.0 MODERATE RISK >11.0 HIGH RISK Performed By: #### V ITAD, IRON #### [facility] [address] [place] [address] Dr. Natasha Celeste Cholesterol [Mass/Vol] 176 mg/dL Normal <=200 [facility] Comment on above: Performed By: #### V ITAD, IRON #### [facility] [address] [place] [address] Dr. Natasha Celeste Cholesterol in HDL [Mass/Vol] 70 mg/dL Critically high 40-60 [facility] Comment on above: Performed By: #### V ITAD, IRON #### [facility] [address] [address] [address] Natasha Celeste Cholesterol in LDL [Mass/Vol] 83.2 mg/dL Normal [facility] Comment on above: Performed By: #### V ITAD, IRON #### [facility] [address] [address] [address] Natasha Celeste Cholesterol.total/ Cholesterol in HDL [Mass ratio] 2.5 {ratio} Normal [facility] Comment on above: Performed By: #### V ITAD, IRON #### [facility] [address] [address] [address] Natasha Celeste HDL NORMAL > or = 60 mg/dl - LO W CARDIOVASCULAR RISK <40 mg/dl - HIGH CARDIOVASCULAR RISK Normal [facility] Comment on above: Performed By: #### V ITAD, IRON #### [facility] [address] [address] [address] Natasha Celeste LDL CALC NORMAL SEE BELOW Normal [facility] Comment on above: Result Comment: <100 mg/dl OPTIMAL 100 - 129 mg/dl NEAR OR ABOVE OPTIMAL 130 - 159 mg/dl BORDERLINE HIGH 160 - 189 mg/dl HIGH >190 mg/dl VERY HIGH Performed By: #### V ITAD, IRON #### [facility] [address] [address] [address] Natasha Celeste Triglyceride [Mass/Vol] 114 mg/dL Normal <=150 [facility] Comment on above: Performed By: #### V ITAD, IRON #### [facility] [address] [address] [address] Natasha Celeste VLDL CALC 22.8 mg/dL Normal [facility] Comment on above: Performed By: #### V ITAD, IRON #### [facility] [address] [address] [address] Natasha Celeste PROF 14(COMP METB)on 023 Albumin [Mass/Vol] 3.8 g/dL Normal 3.4-5.0 [facility] Comment on above: Performed By: #### V ITAD, IRON #### [facility] [address] [address] [address] Natasha Celeste Albumin/Globulin [Mass ratio] 1.0 {ratio} Normal [facility] Comment on above: Performed By: #### V ITAD, IRON #### [facility] [address] [address] [address] Natasha Celeste ALP [Catalytic activity/Vol] 74 U/L Normal 46-116 [facility] Comment on above: Performed By: #### V ITAD, IRON #### [facility] [address] [address] [address] Natasha Celeste ALT [Catalytic activity/Vol] 37 U/L Normal 14-59 [facility] Comment on above: Performed By: #### V ITAD, IRON #### [facility] [address] [place] [address] Dr. Natasha Celeste Anion gap [Moles/Vol] 14.7 mmol/L Normal [facility] Comment on above: Performed By: #### V ITAD, IRON #### [facility] [address] [place] [address] Dr. Natasha Celeste AST [Catalytic activity/Vol] 34 U/L Normal 15-37 [facility] Comment on above: Performed By: #### V ITAD, IRON #### [facility] [address] [place] [address] Dr. Natasha Celeste Bilirubin [Mass/Vol] 0.5 mg/dL Normal 0.2-1.0 [facility] Comment on above: Performed By: #### V ITAD, IRON #### [facility] [address] [place] [address] Dr. Natasha Celeste Calcium [Mass/Vol] 8.9 mg/dL Normal 8.5-10.1 [facility] Comment on above: Performed By: #### V ITAD, IRON #### [facility] [address] [place] [address] Dr. Natasha Celeste Chloride [Moles/Vol] 103 mmol/L Normal 98-107 [facility] Comment on above: Performed By: #### V ITAD, IRON #### [facility] [address] [place] [address] Dr. Natasha Celeste CO2 [Moles/Vol] 27.4 mmol/L Normal 21.0-32.0 [facility] Comment on above: Performed By: #### V ITAD, IRON #### [facility] [address] [address] [address] Natasha Celeste Creatinine [Mass/Vol] 0.69 mg/dL Normal 0.55-1.02 [facility] Comment on above: Performed By: #### V ITAD, IRON #### [facility] [address] [place] [address] Dr. Natasha Celeste EGFR-AF INDIAN >60 Normal >=60 [facility] Comment on above: Performed By: #### V ITAD, IRON #### [facility] [address] [place] [address] Dr. Natasha Celeste EGFR-NON AF INDIAN >60 Normal >=60 [facility] Comment on above: Performed By: #### V ITAD, IRON #### [facility] [address] [address] [address] Natasha Celeste Globulin (S) [Mass/Vol] 3.9 g/dL Normal [facility] Comment on above: Performed By: #### V ITAD, IRON #### [facility] [address] [place] [address] Dr. Natasha Celeste Glucose [Mass/Vol] 103 mg/dL Normal 74-106 [facility] Comment on above: Performed By: #### V ITAD, IRON #### [facility] [address] [address] [address] Natasha Celeste Potassium [Moles/Vol] 4.1 mmol/L Normal 3.5-5.1 [facility] Comment on above: Performed By: #### V ITAD, IRON #### [facility] [address] [place] [address] Dr. Natasha Celeste Protein [Mass/Vol] 7.7 g/dL Normal 6.4-8.2 [facility] Comment on above: Performed By: #### V ITAD, IRON #### [facility] [address] [place] [address] Dr. Natasha Celeste Sodium [Moles/Vol] 141 mmol/L Normal 136-145 [facility] Comment on above: Performed By: #### V ITAD, IRON #### [facility] [address] [place] [address] Dr. Natasha Celeste Urea nitrogen [Mass/Vol] 19.0 mg/dL Critically high 7.0-18.0 [facility] Comment on above: Performed By: #### V ITAD, IRON #### [facility] [address] [place] [address] Dr. Natasha Celeste Urea nitrogen/Creatinin e [Mass ratio] 27.5 mg/mg Normal [facility] Comment on above: Performed By: #### V ITLUIS, IRON #### [facility] [address] [place] [address] Dr. Natasha Celeste TSHon 05-23-2022 TSH 0.405 uIU/mL Normal 0.358-3.740 [facility] Comment on above: Performed By: #### T 7, TSH, CMP, LIPID #### [facility] [address] [place] [address] Dr. Natasha Celeste VITAMIN D 25 OHon 05-23-2022 VIT D 25-OH 37.2 ng/mL Normal [facility] Comment on above: Performed By: #### V BRANDO, IRON #### [facility] [address] [place] [address] Dr. Natasha Celeste VIT D RANGES SEE BELOW Normal [facility] Comment on above: Result Comment: <20 ng/mL Vit D deficient 20 - <30 ng/mL Vit D insufficient 30 - 100 ng/mL Vit D sufficient >100 ng/mL Potential Toxicity Performed By: #### V ITAD, IRON #### [facility] [address] [place] [address] Dr. Natasha Celeste Office Visit (Allergy/Immuno logy)on [...] for SOB and allergies History of Present Xeskngy28 yo with history of allergy and asthma. [...] TABLET BY MOUTH DAILY Zyrtec-D 5-120 MG [id number] 1 TABLET TWICE DAILY NEEDED. Vitals Vital Signs Recorded: [id number] 01:39PM Igpxqhcmare52.1 F, Temporal Heart Rate88 Ucztgxypsik95 Ncbqfgmi410 Numqinpuj79 Gsrmpc650 lb BMI Gcqhsmhajm28.3 kg/m2 BSA Calculated1.92 Tobacco Usea) Yes O2 Xallmweqvs00, RA Physical Exam Constitutional General appearance: Well [...] masses. Pulmo (more content not included)... Normal [facility] Tobacco Screening.on 022 Tobacco use status CPHS a) Yes [id number] carolyne Lara [address] Work Phone: RESPIRATORY ALLERGY PROFILE, IGE,ICon 12-13-2021 ALTERNARIA,IGE,IC 4.04 KU/L Abnormal <0.35 [facility] Comment on above: Result Comment: SEE IMMUNOCAP INTERP.IGE Performed By: #### I CPA2 #### [facility] [address] [place] [address] JOSE C,WHITE,IGE,IC 0.15 KU/L Normal <0.35 [facility] Comment on above: Result Comment: SEE IMMUNOCAP INTERP.IGE Performed By: #### I CPA2 #### [facility] [address] [place] [address] ASPERGILUS,IGE,IC 0.30 KU/L Normal <0.35 [facility] Comment on above: Result Comment: SEE IMMUNOCAP INTERP.IGE Performed By: #### I CPA2 #### [facility] [address] [place] [address] BIRCH,IGE,IC <0.10 Normal <0.35 [facility] Comment on above: Result Comment: SEE IMMUNOCAP INTERP.IGE Performed By: #### I CPA2 #### [facility] [address] [place] [id number] BOX ELDER,IGE,IC 0.56 KU/L Abnormal <0.35 [facility] Comment on above: Result Comment: SEE IMMUNOCAP INTERP.IGE Performed By: #### I CPA2 #### [facility] [address] [place] [address] CAT EPI./DANDER,IGE,IC 1.97 KU/L Abnormal <0.35 [facility] Comment on above: Result Comment: SEE IMMUNOCAP INTERP.IGE Performed By: #### I CPA2 #### [facility] [address] [place] [address] CEDAR MTN/JUNIPER,IGE,IC 0.16 KU/L Normal <0.35 [facility] Comment on above: Result Comment: SEE IMMUNOCAP INTERP.IGE Performed By: #### I CPA2 #### [facility] [address] [place] [address] CLADOSPORIUM HERBARUM IGE,IC 0.38 KU/L Abnormal <0.35 [facility] Comment on above: Result Comment: SEE IMMUNOCAP INTERP.IGE Performed By: #### I CPA2 #### [facility] [address] [place] [id number] COCKROACH,IGE,IC <0.10 Normal <0.35 [facility] Comment on above: Result Comment: SEE IMMUNOCAP INTERP.IGE Performed By: #### I CPA2 #### [facility] [address] [place] [id number] COTTONWOOD,IGE,IC <0.10 Normal <0.35 [facility] Comment on above: Result Comment: SEE IMMUNOCAP INTERP.IGE Performed By: #### I CPA2 #### [facility] [address] [place] [id number] D.FARINA,IGE,IC <0.10 Normal <0.35 [facility] Comment on above: Result Comment: SEE IMMUNOCAP INTERP.IGE Performed By: #### I CPA2 #### [facility] [address] [place] [id number] D.PTERONYSSINUS,IG E,IC <0.10 Normal <0.35 [facility] Comment on above: Result Comment: SEE IMMUNOCAP INTERP.IGE Performed By: #### I CPA2 #### [facility] [address] [place] [address] DOG DANDER IGE,IC 3.91 KU/L Abnormal <0.35 [facility] Comment on above: Result Comment: SEE IMMUNOCAP INTERP.IGE Performed By: #### I CPA2 #### [facility] [address] [place] [address] ELM,IGE,IC 0.11 KU/L Normal <0.35 [facility] Comment on above: Result Comment: SEE IMMUNOCAP INTERP.IGE Performed By: #### I CPA2 #### [facility] [address] [place] [id number] SOUTH SUDANESE PLANTAIN,IGE,IC <0.10 Normal <0.35 [facility] Comment on above: Result Comment: SEE IMMUNOCAP INTERP.IGE Performed By: #### I CPA2 #### [facility] [address] [place] [id number] GRASS,BERMUDA,IGE, IC <0.10 Normal <0.35 [facility] Comment on above: Result Comment: SEE IMMUNOCAP INTERP.IGE Performed By: #### I CPA2 #### [facility] [address] [place] [address] GRASS,MEERA,IGE, IC <0.10 Normal <0.35 [facility] Comment on above: Result Comment: SEE IMMUNOCAP INTERP.IGE Performed By: #### I CPA2 #### [facility] [address] [place] [id number] GRASS,[place] BLUE,IGE,IC 0.71 KU/L Abnormal <0.35 [facility] Comment on above: Result Comment: SEE IMMUNOCAP INTERP.IGE Performed By: #### I CPA2 #### [facility] [address] [place] [id number] GRASS,TIN,IGE,IC 0.70 KU/L Abnormal <0.35 [facility] Comment on above: Result Comment: SEE IMMUNOCAP INTERP.IGE Performed By: #### I CPA2 #### [facility] [address] [place] [id number] IMMUNOCAP IGE 238.0 KU/L High 0.0 - 214.0 [facility] Comment on above: Result Comment: Note : Omalizumab (Xolair, Genentech; humanized IgG1 antihuman IgE Fc) treatment does not significantly interfere with the accuracy of total IgE on the ImmunoCAP ([employer]) platform. J Allergy Clin Immunol 2006;117:759-66). Allergens, parasitic diseases, smoking, and alcohol consumption have been reported to increase levels of total IgE in serum. Performed By: #### I CPA2 #### [facility] [address] [place] [address] LAMBS QUARTERS,IGE,IC 0.11 KU/L Normal <0.35 [facility] Comment on above: Result Comment: SEE IMMUNOCAP INTERP.IGE Performed By: #### I CPA2 #### [facility] [address] [place] [address] MULBERRY, WHITE, IGE,IC <0.10 Normal <0.35 [facility] Comment on above: Result Comment: SEE IMMUNOCAP INTERP.IGE Performed By: #### I CPA2 #### [facility] [address] [place] [address] OAK,IGE,IC <0.10 Normal <0.35 [facility] Comment on above: Result Comment: SEE IMMUNOCAP INTERP.IGE Performed By: #### I CPA2 #### [facility] [address] [place] [address] PECAN HICKORY,IGE,IC 0.17 KU/L Normal <0.35 [facility] Comment on above: Result Comment: SEE IMMUNOCAP INTERP.IGE Performed By: #### I CPA2 #### [facility] [address] [place] [address] PENICILLIUM,IGE,IC <0.10 Normal <0.35 [facility] Comment on above: Result Comment: SEE IMMUNOCAP INTERP.IGE Performed By: #### I CPA2 #### [facility] [address] [place] [address] PIGWEED,IGE,IC 0.17 KU/L Normal <0.35 [facility] Comment on above: Result Comment: SEE IMMUNOCAP INTERP.IGE Performed By: #### I CPA2 #### [place] [address] [place] [address] RAGWEED,SHORT,IGE, IC 0.88 KU/L Abnormal <0.35 [facility] Comment on above: Result Comment: SEE IMMUNOCAP INTERP.IGE Performed By: #### I CPA2 #### [facility] [address] [place] [id number] HONG KONGER THISTLE,IGE,IC 0.44 KU/L Abnormal <0.35 [facility] Comment on above: Result Comment: SEE IMMUNOCAP INTERP.IGE Performed By: #### I CPA2 #### [facility] [address] [place] [phone] SHEEP SORREL,IGE,IC <0.10 Normal <0.35 [facility] Comment on above: Result Comment: SEE IMMUNOCAP INTERP.IGE Performed By: #### I CPA2 #### [facility] [address] [place] [phone] SYCAMORE,MAPLE LEAF IGE,IC 0.12 KU/L Normal <0.35 [facility] Comment on above: Result Comment: SEE IMMUNOCAP INTERP.IGE Performed By: #### I CPA2 #### [facility] [address] [place] [phone] WALNUT TREE,IGE,IC 0.13 KU/L Normal <0.35 [facility] Comment on above: Result Comment: SEE IMMUNOCAP INTERP.IGE Performed By: #### I CPA2 #### [facility] [address] [place] [address] Laboratory - Allergyon 12-12 A. alternata IgE Qn (S) 4.04 {KU/L} Abnormal <0.35 EM-EYKD-[place] [address] Work Phone: Comment on above: SEE IMMUNOCAP INTERP .IGE A. fumigatus IgE Qn (S) 0.30 {KU/L} <0.35 CL-CNFF-Kldq [place] [address] Work Phone: Comment on above: SEE IMMUNOCAP INTERP .IGE Russian house dust mite IgE Qn (S) <0.10 <0.35 CV-LJQJ-Furo [place] [address] Work Phone: Comment on above: SEE IMMUNOCAP INTERP .IGE [place] IgE Qn (S) 0.12 {KU/L} <0.35 YU-WTXU-Tjtb [place] [address] Work Phone: Comment on above: SEE IMMUNOCAP INTERP .IGE Berm[place] grass IgE Qn (S) <0.10 <0.35 RJ-OJMB-Guml [place] [address] Work Phone: Comment on above: SEE IMMUNOCAP INTERP .IGE Boxelder IgE Qn (S) 0.56 {KU/L} Abnormal <0.35 TQ-UQTW-Nklh [place] [address] Work Phone: Comment on above: SEE IMMUNOCAP INTERP .IGE C. herbarum IgE Qn (S) 0.38 {KU/L} Abnormal <0.35 JL-SKOO-Owye [place] [address] Work Phone: Comment on above: SEE IMMUNOCAP INTERP .IGE [place] IgE Qn (S) 0.13 {KU/L} <0.35 KH-FOWE-Ezhj [place] [address] Work Phone: Comment on above: SEE IMMUNOCAP INTERP .IGE Cat dander IgE Qn (S) 1.97 {KU/L} Abnormal <0.35 HA-YKNH-Izfq [place] [address] Work Phone: Comment on above: SEE IMMUNOCAP INTERP .IGE Cockroach IgE Qn (S) <0.10 <0.35 UH-DDKG-Fybu [place] [address] Work Phone: Comment on above: SEE IMMUNOCAP INTERP .IGE Common Pigweed IgE Qn (S) 0.17 {KU/L} <0.35 IL-JOLI-Eefo [place] [address] Work Phone: Comment on above: SEE IMMUNOCAP INTERP .IGE C[place] IgE Qn (S) <0.10 <0.35 CJ-YBHA-Pxys [place] [address] Work Phone: Comment on above: SEE IMMUNOCAP INTERP .IGE Dog dander IgE Qn (S) 3.91 {KU/L} Abnormal <0.35 RD-HMYV-Zbdr [place] [address] Work Phone: Comment on above: SEE IMMUNOCAP INTERP .IGE South Korean plantain IgE Qn (S) <0.10 <0.35 IR-ADRC-[place] [address] Work Phone: Comment on above: SEE IMMUNOCAP INTERP .IGE house dust mite IgE Qn (S) <0.10 <0.35 YC-AMMA-Ysnm [place] [address] Work Phone: Comment on above: SEE IMMUNOCAP INTERP .IGE Goosefoot IgE Qn (S) 0.11 {KU/L} <0.35 NR-IKZN-Keiu [place] [address] Work Phone: Comment on above: SEE IMMUNOCAP INTERP .IGE Meera grass IgE Qn (S) <0.10 <0.35 MS-JTYM-Kgwu [place] [address] Work Phone: Comment on above: SEE IMMUNOCAP INTERP .IGE [place] blue grass IgE Qn (S) 0.71 {KU/L} Abnormal <0.35 DL-DBTD-Wbas [place] B Work Phone: Comment on above: SEE IMMUNOCAP INTERP .IGE Mountain Juniper IgE Qn (S) 0.16 {KU/L} <0.35 CX-OVVA-Rfsy [place] [address] Work Phone: Comment on above: SEE IMMUNOCAP INTERP .IGE P. notatum IgE Qn (S) <0.10 <0.35 CE-ZPFF-Yzua [place] [address] Work Phone: Comment on above: SEE IMMUNOCAP INTERP .IGE Pecan or Loup Tree IgE Qn (S) 0.17 {KU/L} <0.35 AN-UTRV-Kzkj [place] [address] Work Phone: Comment on above: SEE IMMUNOCAP INTERP .IGE Saltwort IgE Qn (S) 0.44 {KU/L} Abnormal <0.35 JF-NKRH-Ouek [place] [address] Work Phone: Comment on above: SEE IMMUNOCAP INTERP .IGE Sheep Shevlin IgE Qn (S) <0.10 <0.35 [facility] [address] Work Phone: Comment on above: SEE IMMUNOCAP INTERP .IGE Silver Birch IgE Qn (S) <0.10 <0.35 [facility] [address] Work Phone: Comment on above: SEE IMMUNOCAP INTERP .IGE Reji IgG Qn (S) 0.70 {KU/L} Abnormal <0.35 -[facility] B Work Phone: Comment on above: SEE IMMUNOCAP INTERP .IGE Total IgE RAST Qn (S) 238.0 {KU/L} above high threshold See Below [facility] [address] Work Phone: Comment on above: Reference Range: 0.0 - 214.0 Note: Omalizumab (Xolair, [employer]; humanized IgG1 antihuman IgE Fc) treatment does not significantly interfere with the accuracy of total IgE on the ImmunoCAP ([employer]) platform. J Allergy Clin Immunol 2006;117:759-66). Allergens, parasitic diseases, smoking, and alcohol consumption have been reported to increase levels of total IgE in serum. White Jose C IgE Qn (S) 0.15 {KU/L} <0.35 [facility] [address] Work Phone: Comment on above: SEE IMMUNOCAP INTERP .IGE White Elm IgE Qn (S) 0.11 {KU/L} <0.35 [facility] [address] Work Phone: Comment on above: SEE IMMUNOCAP INTERP .IGE White mulberry IgE Qn (S) <0.10 <0.35 [facility] [address] Work Phone: Comment on above: SEE IMMUNOCAP INTERP .IGE Blue IgE Qn (S) <0.10 <0.35 [facility] [address] Work Phone: Comment on above: SEE IMMUNOCAP INTERP .IGE No Panel Informationon 12-12 SEE COMMENT PX-PFWQ-UcjsManicube Work Phone: Comment on above: REFERENCE RANGE (IMM UNOCAP) IGE KU/L CLASS INTERPRETATION < 0.10 0 BELOW DETECTION 0.10- 0.34 0/1 EQUIVOCAL 0.35- 0.69 1 LOW POSITIVE 0.70- 3.49 2 MODERATE POSITIVE 3.50- 17.49 3 HIGH ZQKPKRAV18.50- 49 4 VERY HIGH UDSSHLZG09 - 99 5 VERY HIGH POSITIVE >100 6 VERY HIGH POSITIVE 0.88 {KU/L} Abnormal <0.35 TA-OLCA-MgrxManicube Work Phone: Comment on above: SEE IMMUNOCAP INTERP .IGE Office Visit (Allergy/Immuno logy)on 12-12-2021 Follow-up visit Diagnoses/Problems Assessed Allergies (995.3) (T78.40XA) Itching (698.9) (L29.9) SOB (shortness of breath) on exertion (786.05) (R06.02) Orders Allergies Respiratory Allergy Profile Region 5, IC; Status:Active; Requested for:[id number]; SOB (shortness of breath) on exertion Start: [...] referred by PCP, Dr. Kory Ambriz, in [place], [place] History of Present IllnessPt here to discuss allergy symptoms. Patient has seen an print shop helper in the past, last tested in 2010. Patient states seasonal and environmental allergies. Patient t is on Zyrtec-D and Benadryl as needed. Takes Zyrtec D in the morning, last this a.m. She had a shot in September for her allergy which she thinks was a steroid. She did have her Pneumovax a couple months ago. Patient did see an print shop helper in early 2000. Was on shots 2-3 yrs. She felt it helped. Never diagnosed with asthma Smokes occasionally. She did smoke regular in the past. Uses daily albuterol. She is worried about dog allergy. She has one dog. Patient is retired as a nurse. She worked at [employer]. Moved into a new home a [...] TabletTAKE 1 TABLET DAILY. Zyrtec-D 5-120 MG [id number] 1 TABLET TWICE DAILY NEEDED. Vitals Vital Signs Recorded: 12Dec2021 10:13AM Yviigikpmaq00.1 F, Temporal Heart Rate89 Dtmcqhfurnu78 Zcolnyth572 Ypftsrqcf74 Height5 ft 8 in Tuaozr464 lb BMI Axmsgszabp37.3 kg/m2 BSA Calculated1.92 Tobacco Usea) Yes Patient encouraged to stop using tobacco productsYes O2 Coixvzdqoc63, RA Physical Exam Constitutional General appearance: Well [...] of bigg (more content not included)... Normal [place] RESPIRATORY ALLERGY PROFILE, IGE,ICon 12-12-2021 IMMUNOCAP INTERP.IGE SEE COMMENT Normal [facility] Comment on above: Result Comment: REFE RENCE RANGE (IMMUNOCAP) IGE KU/L CLASS INTERPRETATION < 0.10 0 BELOW DETECTION 0.10- 0.34 0/1 EQUIVOCAL 0.35- 0.69 1 LOW POSITIVE 0.70- 3.49 2 MODERATE POSITIVE 3.50- 17.49 3 HIGH POSITIVE 17.50- 49 4 VERY HIGH POSITIVE 50 - 99 5 VERY HIGH POSITIVE >100 6 VERY HIGH POSITIVE Performed By: #### I CPA2 #### [facility] [address] [place] [address] Tobacco Screening.on 022 Tobacco use status CPHS a) Yes BA-JQOZ-[place] [address] Work Phone: Tobacco Screening. Yes MP-WSP C- y [place] [address] Work Phone: MG MAMM SCREEN 3D DEREK CADon 09-30-2021 MG MAMM SCREEN 3D DEREK CAD Patient: ROBBIE KEMP Exam Date: 09/30/2021 : 1955 Gender:F Ordering : DR. YISSEL CARDOZO D.O. Admission #: [id number] Family : Order #: [id number] CLICK HERE TO VIEW EXAM RADIOLOGY REPORT [...] breast cancer at age 51. LOCATION: [facility] BREAST COMPOSITION: Heterogeneously dense,which may obscure small [...] MD on 09/30/2021 at 12:05 Normal [facility] XR hip LT min 2V(w/wo pelvis )*on 07-06-2021 XR hip LT min 2V(w/wo pelvis)* [facility] Main [place] [address] [place] [id number] XRay Report Signed Patient: Robbie Kemp MR#: [id number] : 1955 Acct:[id number] Age/Sex: 66 / F ADM Date: 07/06/21 Loc: [facility] Room: Type: REG CLI Attending Dr: Arvind [...] Yecenia Walker M.D.07/06/2021 3:58 PM Dictation Location: [place] [address] Transcribed By: [facility] 07/06/21 1558 Dictated By: Yecenia Walker MD 07/06/21 1557 Signed By: 07/06/21 1558 Normal [facility] XR foot RT min 3V*on 022 XR foot RT min 3V* [facility] [place] [address] XRay Report Signed Patient: Robbie Kemp MR#: [id number] : 1955 Acct:[id number] Age/Sex: 66 / F ADM Date: 06/07/21 Loc: [facility] Room: Type: REG CLI Attending Dr: Benja [...] Tripp Johnson M.D.06/07/2021 1:29 PM Dictation Location: [place] [address] Transcribed By: [facility] 06/07/21 132 Dictated By: Tripp Johnson DO 06/07/211322 Signed By: 06/07/21 132 Normal [facility] B-Type Natriuretic Peptideon 01-25-2021 Natriuretic peptide B (Bld) [Mass/Vol] 66.0 pg/mL Normal 5-100 [facility] Comment on above: Result Comment: PERF ORMED BY: [facility] [address] [place] [id number] PATHOLOGIST PAN OPERATOR SHIRA PEREIRA M.D. Performed By: #### B CHEMICAL ENGINEERING PROFESSOR, HS TROP, HEPATIC, BMP, CBC, PT, PTT ####[place] [id number] [address] Basic Metabolic Panelon 10-0 Calcium [Mass/Vol] 9.5 mg/dL Normal 8.2-10.2 [facility] Comment on above: Performed By: #### B CHEMICAL ENGINEERING PROFESSOR, HS TROP, HEPATIC, BMP, CBC, PT, PTT ####[place] [id number] [place] [address] [facility] Chloride [Moles/Vol] 99 mmol/L Normal 95-114 [facility] Comment on above: Performed By: #### B CHEMICAL ENGINEERING PROFESSOR, HS TROP, HEPATIC, BMP, CBC, PT, PTT ####[place] [address] [place] [address] [facility] CO2 [Moles/Vol] 24.7 mmol/L Normal 22.0-30.0 [facility] Comment on above: Performed By: #### B CHEMICAL ENGINEERING PROFESSOR, HS TROP, HEPATIC, BMP, CBC, PT, PTT ####[address] [address] [facility] Creatinine [Mass/Vol] 0.73 mg/dL Normal 0.44-1.03 [facility] Comment on above: Performed By: #### B CHEMICAL ENGINEERING PROFESSOR, HS TROP, HEPATIC, BMP, CBC, PT, PTT ####[place] [id number] [place] [id number] [facility] Creatinine Clr Calc Pharmacy 78.54 [facility] Comment on above: Result Comment: PERF ORMED BY: [facility] [address] [place] [address] PATHOLOGIST PAN OPERATOR SHIRA PEREIRA M.D. Performed By: #### B CHEMICAL ENGINEERING PROFESSOR, HS TROP, HEPATIC, BMP, CBC, PT, PTT ####[place] [id number] [place] [id number] [facility] Estimated GFR ( Drea > 60 [facility] Comment on above: Result Comment: GFR estimated reference range: According to KDOQI guidelines, <60 ml/min/1.73m2 is sufficient to diagnose a patient with chronic kidney disease. Performed By: #### B CHEMICAL ENGINEERING PROFESSOR, HS TROP, HEPATIC, BMP, CBC, PT, PTT ####[address] Estimated GFR (Non- Am > 60 [facility] Comment on above: Performed By: #### B CHEMICAL ENGINEERING PROFESSOR, HS TROP, HEPATIC, BMP, CBC, PT, PTT ####[place] [id number] [facility] Glucose [Mass/Vol] 95 mg/dL Normal 70-100 [facility] Comment on above: Result Comment: [place] Glucose Reference Range is dependent on time and content of last meal. Glucose of more than 200 mg/dL in a nonstressed, ambulatory subject supports the diagnosis of Diabetes Mellitus. ADA recommended reference range Performed By: #### B CHEMICAL ENGINEERING PROFESSOR, HS TROP, HEPATIC, BMP, CBC, PT, PTT ####[place] [phone] [facility] Potassium [Moles/Vol] 4.6 mmol/L Normal 3.5-5.1 [facility] Comment on above: Performed By: #### B CHEMICAL ENGINEERING PROFESSOR, HS TROP, HEPATIC, BMP, CBC, PT, PTT ####[place] [phone] [facility] Sodium [Moles/Vol] 134 mmol/L Low 136-146 [facility] Comment on above: Performed By: #### B CHEMICAL ENGINEERING PROFESSOR, HS TROP, HEPATIC, BMP, CBC, PT, PTT ####[facility] Urea nitrogen [Mass/Vol] 9 mg/dL Normal 9-23 [facility] Comment on above: Performed By: #### B CHEMICAL ENGINEERING PROFESSOR, HS TROP, HEPATIC, BMP, CBC, PT, PTT ####[facility] Complete Blood Count Auto Di ffon 01-25-2021 Basophils (Bld) [#/Vol] 0.1 10*3/uL Normal 0.0-0.2 [facility] Comment on above: Result Comment: PERF ORMED BY: [place] [address] PATHOLOGIST PAN OPERATOR SHIRA PEREIRA M.D. Performed By: #### B CHEMICAL ENGINEERING PROFESSOR, HS TROP, HEPATIC, BMP, CBC, PT, PTT #### [address] Basophils/100 WBC (Bld) 2.4 % Normal . [facility] Comment on above: Performed By: #### B CHEMICAL ENGINEERING PROFESSOR, HS TROP, HEPATIC, BMP, CBC, PT, PTT #### [facility] [address] [place] [address] Eosinophils (Bld) [#/Vol] 0.2 10*3/uL Normal 0.0-0.45 [facility] Comment on above: Performed By: #### B CHEMICAL ENGINEERING PROFESSOR, HS TROP, HEPATIC, BMP, CBC, PT, PTT #### [address] Eosinophils/100 WBC (Bld) 4.7 % Normal . [facility] Comment on above: Performed By: #### B CHEMICAL ENGINEERING PROFESSOR, HS TROP, HEPATIC, BMP, CBC, PT, PTT #### [address] Erythrocyte distribution width (RBC) [Ratio] 12.4 % Normal 11.9-15.3 [facility] Comment on above: Performed By: #### B CHEMICAL ENGINEERING PROFESSOR, HS TROP, HEPATIC, BMP, CBC, PT, PTT #### [address] Hematocrit (Bld) [Volume fraction] 29.7 % Low 34.0-46.4 [facility] Comment on above: Performed By: #### B CHEMICAL ENGINEERING PROFESSOR, HS TROP, HEPATIC, BMP, CBC, PT, PTT #### [address] Hemoglobin (Bld) [Mass/Vol] 10.3 g/dL Low 11.8-15.4 [facility] Comment on above: Performed By: #### B CHEMICAL ENGINEERING PROFESSOR, HS TROP, HEPATIC, BMP, CBC, PT, PTT #### [address] Lymphocytes (Bld) [#/Vol] 1.3 10*3/uL Normal 1.00-4.8 [facility] Comment on above: Performed By: #### B CHEMICAL ENGINEERING PROFESSOR, HS TROP, HEPATIC, BMP, CBC, PT, PTT #### [address] Lymphocytes/100 WBC (Bld) 25.3 % Normal . [facility] Comment on above: Performed By: #### B CHEMICAL ENGINEERING PROFESSOR, HS TROP, HEPATIC, BMP, CBC, PT, PTT #### [address] MCH (RBC) [Entitic mass] 35.5 pg High 24.7-34.3 [facility] Comment on above: Performed By: #### B CHEMICAL ENGINEERING PROFESSOR, HS TROP, HEPATIC, BMP, CBC, PT, PTT #### [address] MCV (RBC) [Entitic vol] 102.2 fL High 80-100 [facility] Comment on above: Performed By: #### B CHEMICAL ENGINEERING PROFESSOR, HS TROP, HEPATIC, BMP, CBC, PT, PTT #### [address] Mean Corpuscular HGB Conc 34.7 g/dL Normal 32.0-35.0 [facility] Comment on above: Performed By: #### B CHEMICAL ENGINEERING PROFESSOR, HS TROP, HEPATIC, BMP, CBC, PT, PTT #### [facility] [address] [place] [address] [place] Monocytes (Bld) [#/Vol] 0.4 10*3/uL Normal 0.0-0.8 [facility] Comment on above: Performed By: #### B CHEMICAL ENGINEERING PROFESSOR, HS TROP, HEPATIC, BMP, CBC, PT, PTT #### [facility] [address] Monocytes/100 WBC (Bld) 6.9 % Normal . [facility] Comment on above: Performed By: #### B CHEMICAL ENGINEERING PROFESSOR, HS TROP, HEPATIC, BMP, CBC, PT, PTT #### [place] [address] [place] Neutrophils (Bld) [#/Vol] 3.1 10*3/uL Normal 1.8-7.7 [facility] Comment on above: Performed By: #### B CHEMICAL ENGINEERING PROFESSOR, HS TROP, HEPATIC, BMP, CBC, PT, PTT #### [place] [address] [place] Neutrophils/100 WBC (Bld) 60.7 % Normal . [facility] Comment on above: Performed By: #### B CHEMICAL ENGINEERING PROFESSOR, HS TROP, HEPATIC, BMP, CBC, PT, PTT #### [place] [address] [place] Nucleated RBC/100 WBC (Bld) [Ratio] 0.0 % Normal 0-0.5 [facility] Comment on above: Performed By: #### B CHEMICAL ENGINEERING PROFESSOR, HS TROP, HEPATIC, BMP, CBC, PT, PTT #### [place] [address] [place] Platelet mean volume (Bld) [Entitic vol] 6.1 fL Low 6.3-10.7 [facility] Comment on above: Performed By: #### B CHEMICAL ENGINEERING PROFESSOR, HS TROP, HEPATIC, BMP, CBC, PT, PTT #### [place] [address] [place] Platelets (Bld) [#/Vol] 395 10*3/uL Normal 150-450 [facility] Comment on above: Performed By: #### B CHEMICAL ENGINEERING PROFESSOR, HS TROP, HEPATIC, BMP, CBC, PT, PTT #### [facility] [address] RBC (Bld) [#/Vol] 2.91 10*6/uL Low 3.60-5.00 [facility] Comment on above: Performed By: #### B CHEMICAL ENGINEERING PROFESSOR, HS TROP, HEPATIC, BMP, CBC, PT, PTT #### [facility] [address] WBC (Bld) [#/Vol] 5.1 10*3/uL Normal 4.5-11.0 [facility] Comment on above: Performed By: #### B CHEMICAL ENGINEERING PROFESSOR, HS TROP, HEPATIC, BMP, CBC, PT, PTT #### [facility] [address] ECG 12 lead ECGon 01-25-2021 ECG 12 lead ECG [facility] [place] [address] Electrocardiograph Report Signed Patient: Robbie Kemp MR#: [id number] : 1955 Acct:[id number] Age/Sex: 65 / F ADM Date: 01/25/21 Loc: ER Room: Type: [facility] ER Attending Dr: Ordering Provider: Derrell [...] Signed By Sharda Houston MD 01/25/211912 Normal [facility] Hepatic Panelon 01-25-2021 Albumin [Mass/Vol] 3.5 g/dL Normal 3.2-5.5 [facility] Comment on above: Performed By: #### B CHEMICAL ENGINEERING PROFESSOR, HS TROP, HEPATIC, BMP, CBC, PT, PTT ####[address] [address] [facility] Albumin/Globulin [Mass ratio] 1.3 {ratio} Normal [facility] Comment on above: Performed By: #### B CHEMICAL ENGINEERING PROFESSOR, HS TROP, HEPATIC, BMP, CBC, PT, PTT ####[address] [address] [facility] ALP [Catalytic activity/Vol] 78 U/L Normal 32-92 [facility] Comment on above: Performed By: #### B CHEMICAL ENGINEERING PROFESSOR, HS TROP, HEPATIC, BMP, CBC, PT, PTT ####[address] [address] [facility] ALT [Catalytic activity/Vol] 18 U/L Normal 10-60 [facility] Comment on above: Performed By: #### B CHEMICAL ENGINEERING PROFESSOR, HS TROP, HEPATIC, BMP, CBC, PT, PTT ####[address] [address] [facility] AST [Catalytic activity/Vol] 21 U/L Normal 10-42 [facility] Comment on above: Performed By: #### B CHEMICAL ENGINEERING PROFESSOR, HS TROP, HEPATIC, BMP, CBC, PT, PTT ####[address] [address] [facility] Bilirubin [Mass/Vol] 0.5 mg/dL Normal 0.3-1.2 [facility] Comment on above: Performed By: #### B CHEMICAL ENGINEERING PROFESSOR, HS TROP, HEPATIC, BMP, CBC, PT, PTT ####[address] [address] [facility] Bilirubin,Indirect Not performed Normal [facility] Comment on above: Performed By: #### B CHEMICAL ENGINEERING PROFESSOR, HS TROP, HEPATIC, BMP, CBC, PT, PTT ####[address] [address] [facility] Bilirubin.indirect [Mass/Vol] mg/dL Normal 0.0-0.4 [facility] Comment on above: Performed By: #### B CHEMICAL ENGINEERING PROFESSOR, HS TROP, HEPATIC, BMP, CBC, PT, PTT ####[facility] Globulin (S) [Mass/Vol] 2.7 g/dL Normal [facility] Comment on above: Performed By: #### B CHEMICAL ENGINEERING PROFESSOR, HS TROP, HEPATIC, BMP, CBC, PT, PTT ####[place] [phone] [address] Protein [Mass/Vol] 6.2 g/dL Normal 6.1-7.9 [facility] Comment on above: Performed By: #### B CHEMICAL ENGINEERING PROFESSOR, HS TROP, HEPATIC, BMP, CBC, PT, PTT ####[place] [id number] [address] Partial Thromboplastin Timeo n 01-25-2021 aPTT Coag (Bld) [Time] 34.1 s Normal 25.1-36.5 [facility] Comment on above: Result Comment: PERF ORMED BY: [facility] [address] [place] [address] PATHOLOGIST PAN OPERATOR SHIRA PEREIRA M.D. Performed By: #### B CHEMICAL ENGINEERING PROFESSOR, HS TROP, HEPATIC, BMP, CBC, PT, PTT ####[address] Prothrombin Time INRon 01-25 INR Coag (PPP) [Relative time] 1.0 {INR} Normal [facility] Comment on above: Result Comment: INR Therapeutic [...] 3 - 4.5 Performed By: #### B CHEMICAL ENGINEERING PROFESSOR, HS TROP, HEPATIC, BMP, CBC, PT, PTT #### [facility] [address] [id number] [facility] PT Coag (PPP) [Time] 10.7 s Normal 9.0-12.9 [facility] Comment on above: Performed By: #### B CHEMICAL ENGINEERING PROFESSOR, HS TROP, HEPATIC, BMP, CBC, PT, PTT #### [facility] [address] Troponin I High Sensitivityo n 01-25-2021 Troponin I High Sensitivity 7 pg/mL Normal 0-15 [facility] Comment on above: Result Comment: PERF ORMED BY: [place] [address] PATHOLOGIST PAN OPERATOR SHIRA PEREIRA M.D. Performed By: #### B CHEMICAL ENGINEERING PROFESSOR, HS TROP, HEPATIC, BMP, CBC, PT, PTT ####[facility] [id number] [id number] [facility] XR chest 2V*on 01-25-2021 XR chest 2V* [facility] [place] [address] [place], [place] [address] XRay Report Signed Patient: Robbie Kemp MR#: [id number] : 1955 Acct:[id number] Age/Sex: 65 / F ADM Date: 01/25/21 Loc: ER Room: Type: [facility] ER Attending Dr: Ordering Provider: Derrell [...] Rodriguez Jr., M.D.01/25/2021 4:33 PM Dictation Location: [place] [address] Transcribed By: LUIZA 01/25/211632 Dictated By: Gautam Rodriguez Jr, MD 01/25/211631 Signed By: 01/25/211632 [facility] Connor 01-11-2021 L -------- -------- Specimen: [id number] Received: 01/11/21 Status: GIBRAN Vega Num: [id number] Spec Type: Surgical Subm Dr: Arvind Marie DO Tissues: A Femoral Head - Other than Fracture (L HIP) Procedures: JAMAL Downing/2, Gross/Micro L3, Decal -------- Patient Age/Sex Location Account Attending Physician -------- Robbie Kemp 65/F DC [id number] Arvind Marie DO -------- SPEC NUM: [id number] RECD: 01/11/21 STATUS: GIBRAN HORNCarlos NUM: [id number] HENRIK: 01/11/21- SUBM DR: Arvind Marie DO ENTERED: 01/11/21 [facility] DR: SPEC TYPE: Surgical DEPT: S [...] bone curettings, bone fragments and soft tissue. Extension Edger sections are submitted following formalin fixation and decalcification in cassettes A 1 - A2. (JUAN M/SHAYNE) -------- Specimen: [id number] Received: 01/11/21 Status: ROSYStuart Vega Num: [id number] Spec Type: Surgical Subm Dr: Arvind Marie DO Tissues: A Femoral Head - Other than Fracture (L HIP) Procedures: JAMAL Stain/2, Gross/Micro L3, Decal -------- Patient: Robbie Kemp [id number] (Continued) -------- Specimen: [id number] Received: 01/11/21 (Continued) Signed (signature on file) Ghazal Burk MD 01/13/21 1554 -------- Specimen: [id number] Received: 01/11/21 Status: GIBRAN Vega Num: [id number] Spec Type: Surgical Subm Dr: Arvind Marie DO Tissues: A Femoral Head - Other than Fracture (L HIP) Procedures: JAMAL Stain/2, Gross/Micro L3, Decal -------- Patient: Robbie Kemp [id number] (Continued) -------- Specimen: [id number] Received: 01/11/21 (Continued) Microscopic Description Two glass slides with H E stained material have been examined. The microscopic findings support the above pathologic diagnosis. CPT Codes 24971, 59624 -------- -------- Specimen: [id number] Received: 01/11/21 Status: GIBRAN Vega Num: [id number] Spec Type: Surgical Subm Dr: Arvind Marie DO Tissues: A Femoral Head - Other than Fracture (L HIP) Procedures: HE Stain/2, Gross/Micro L3, Decal -------- Patient: Robbie Kemp [id number] (Continued) -------- Signed (signature on file) Ghazal Burk MD 01/13/21 1554 Normal [facility] Type and Screenon 01-11-2021 ABO and Rh group Nom (Bld) Blood group O Rh(D) positive Normal [facility] Comment on above: Result Comment: PERF ORMED BY: [place] [address] PATHOLOGIST PAN OPERATOR SHIRA PEREIRA M.D. XR pelvis 1-2Von 01-11-2021 XR pelvis 1-2V [facility] [place] [address] XRay Report Signed Patient: Robbie Kemp MR#: [id number] : 1955 Acct:[id number] Age/Sex: 65 / F ADM Date: 01/11/21 Loc: DC Room: Type: [facility] Attending Dr: Arvind Marie DO Ordering Provider: [...] Rodriguez Jr., M.D.01/11/2021 2:28 PM Dictation Location: [place] [address] Transcribed By: [facility] 01/11/211427 Dictated By: Gautam Rodriguez Jr, MD 01/11/211426 Signed By: 01/11/211427 Normal [facility] SARS-CoV-2 (COVID-19) RNA NOLVIA+probe Ql (Unsp spec) Negative Normal Negative [facility] Comment on above: Order Comment: Healt hcare Worker?: N Result Comment: Testing for SARS-CoV-2 by RT-PCR This test was developed and its performance characteristics determined by [employer]) and validated at the [facility]. This test has not been FDA cleared [...] is terminated or revoked sooner. PERFORMED BY: [place] [address] PATHOLOGIST PAN OPERATOR SHIRA PEREIRA M.D. Performed By: #### C OVID 19 [facility] #### [place] [id number] [facility] XR pelvis 1-2Von 01-07-2021 XR pelvis 1-2V [facility] Main [place] [address] [place] [address] XRay Report Signed Patient: Robbie Kemp MR#: [id number] : 1955 Acct:[id number] Age/Sex: 65 / F ADM Date: 01/07/21 Loc: [facility] Room: Type: [facility] Attending Dr: Arvind Marie DO Ordering Provider: [...] Yahir Landrum M.D.01/07/2021 12:23 PM Dictation Location: [place] [address] Transcribed By: [facility] 01/07/21 1223 Dictated By: Yahir Landrum II, MD 01/07/21 122 Signed By: 01/07/21 1223 Normal [facility] Basic Metabolic Panelon 09-0 Calcium [Mass/Vol] 9.4 mg/dL Normal 8.2-10.2 [facility] Comment on above: Result Comment: PERF ORMED BY: [address] [address] PATHOLOGIST PAN OPERATOR SHIRA PEREIRA M.D. Performed By: #### B MP, CBC #### [place] [id number] [facility] Chloride [Moles/Vol] 102 mmol/L Normal 95-114 [facility] Comment on above: Performed By: #### B MP, CBC #### [facility] [address] CO2 [Moles/Vol] 22.4 mmol/L Normal 22.0-30.0 [facility] Comment on above: Performed By: #### B MP, CBC #### [address] Creatinine [Mass/Vol] 0.60 mg/dL Normal 0.44-1.03 [facility] Comment on above: Performed By: #### B MP, CBC #### [address] Estimated GFR ( Drea > 60 Normal [facility] Comment on above: Result Comment: GFR estimated reference range: According to KDOQI guidelines, <60 ml/min/1.73m2 is sufficient to diagnose a patient with chronic kidney disease. Performed By: #### B MP, CBC #### [address] Estimated GFR (Non- Am > 60 Normal [facility] Comment on above: Performed By: #### B MP, CBC #### [address] Glucose [Mass/Vol] 98 mg/dL Normal 70-100 [facility] Comment on above: Result Comment: [place] om Glucose Reference Range is dependent on time and content of last meal. Glucose of more than 200 mg/dL in a nonstressed, ambulatory subject supports the diagnosis of Diabetes Mellitus. ADA recommended reference range Performed By: #### B MP, CBC #### [place] [address] [place] Potassium [Moles/Vol] 4.0 mmol/L Normal 3.5-5.1 [facility] Comment on above: Performed By: #### B MP, CBC #### [place] [address] [place] Sodium [Moles/Vol] 137 mmol/L Normal 136-146 [facility] Comment on above: Performed By: #### B MP, CBC #### [address] [place] [address] [place] Urea nitrogen [Mass/Vol] 10 mg/dL Normal 9-23 [facility] Comment on above: Performed By: #### B MP, CBC #### [address] Complete Blood Count Auto Di ffon 12-29-2020 Basophils (Bld) [#/Vol] 0.1 10*3/uL Normal 0.0-0.2 [facility] Comment on above: Result Comment: PERF ORMED BY: [place] [address] PATHOLOGIST PAN OPERATOR SHIRA PEREIRA M.D. Performed By: #### B MP, CBC #### [address] Basophils/100 WBC (Bld) 1.4 % Normal . [facility] Comment on above: Performed By: #### B MP, CBC #### [address] Eosinophils (Bld) [#/Vol] 0.1 10*3/uL Normal 0.0-0.45 [facility] Comment on above: Performed By: #### B MP, CBC #### [address] Eosinophils/100 WBC (Bld) 2.2 % Normal . [facility] Comment on above: Performed By: #### B MP, CBC #### [address] Erythrocyte distribution width (RBC) [Ratio] 12.0 % Normal 11.9-15.3 [facility] Comment on above: Performed By: #### B MP, CBC #### [address] Hematocrit (Bld) [Volume fraction] 36.1 % Normal 34.0-46.4 [facility] Comment on above: Performed By: #### B MP, CBC #### [address] Hemoglobin (Bld) [Mass/Vol] 12.5 g/dL Normal 11.8-15.4 [facility] Comment on above: Performed By: #### B MP, CBC #### [facility] [address] Lymphocytes (Bld) [#/Vol] 1.4 10*3/uL Normal 1.00-4.8 [facility] Comment on above: Performed By: #### B MP, CBC #### [facility] [address] Lymphocytes/100 WBC (Bld) 31.4 % Normal . [facility] Comment on above: Performed By: #### B MP, CBC #### [address] MCH (RBC) [Entitic mass] 36.7 pg High 24.7-34.3 [facility] Comment on above: Performed By: #### B MP, CBC #### [address] MCV (RBC) [Entitic vol] 105.8 fL High 80-100 [facility] Comment on above: Performed By: #### B MP, CBC #### [address] Mean Corpuscular HGB Conc 34.7 g/dL Normal 32.0-35.0 [facility] Comment on above: Performed By: #### B MP, CBC #### [place] [address] [place] Monocytes (Bld) [#/Vol] 0.4 10*3/uL Normal 0.0-0.8 [facility] Comment on above: Performed By: #### B MP, CBC #### [place] [address] [place] Monocytes/100 WBC (Bld) 8.9 % Normal . [facility] Comment on above: Performed By: #### B MP, CBC #### [address] Neutrophils (Bld) [#/Vol] 2.5 10*3/uL Normal 1.8-7.7 [facility] Comment on above: Performed By: #### B MP, CBC #### [facility] [address] Neutrophils/100 WBC (Bld) 56.1 % Normal . [facility] Comment on above: Performed By: #### B MP, CBC #### [facility] [address] [place] [address] [place] Nucleated RBC/100 WBC (Bld) [Ratio] 0.1 % Normal 0-0.5 [facility] Comment on above: Performed By: #### B MP, CBC #### [facility] [address] Platelet mean volume (Bld) [Entitic vol] 7.9 fL Normal 6.3-10.7 [facility] Comment on above: Performed By: #### B MP, CBC #### [facility] [address] [place] [address] [place] Platelets (Bld) [#/Vol] 195 10*3/uL Normal 150-450 [facility] Comment on above: Performed By: #### B MP, CBC #### [facility] [address] [place] [address] [place] RBC (Bld) [#/Vol] 3.41 10*6/uL Low 3.60-5.00 [facility] Comment on above: Performed By: #### B MP, CBC #### [facility] [address] [place] [address] [place] WBC (Bld) [#/Vol] 4.5 10*3/uL Normal 4.5-11.0 [facility] Comment on above: Performed By: #### B MP, CBC #### [facility] [address] [place] [address] [place] ECG 12 lead ECGon 12-29-2020 ECG 12 lead ECG [facility] Main [place] [address] [place] [address] Electrocardiograph Report Signed Patient: Robbie Kemp MR#: [id number] : 1955 Acct:[id number] Age/Sex: 65 / F ADM Date: 12/29/20 Loc: PS [facility]: [facility] Dr: Arvind Marie DO Ordering Provider: [...] Signed By Marisel Camarena DO 12/30 Normal [facility] Urinalysison 12-29-2020 Appearance (U) Clear Normal Clear [facility] Comment on above: Order Comment: Name Collection Type:: Clean-Voided Midstream Performed By: #### U A #### [facility] [address] [place] [address] [place] Bilirubin,Urine Negative Normal Negative [facility] Comment on above: Order Comment: Name Collection Type:: Clean-Voided Midstream Performed By: #### U A #### [facility] [address] [place] [address] [place] Color (U) Yellow Normal Yellow [facility] Comment on above: Order Comment: Name Collection Type:: Clean-Voided Midstream Performed By: #### U A #### [facility] [address] [place] [id number] [place] Glucose Ql (U) Normal Normal Normal [facility] Comment on above: Order Comment: Name Collection Type:: Clean-Voided Midstream Performed By: #### U A #### [facility] [address] [place] [id number] [place] Ketones Ql (U) Negative Normal Negative [facility] Comment on above: Order Comment: Name Collection Type:: Clean-Voided Midstream Performed By: #### U A #### [facility] [address] [place] [address] Leukocyte esterase Test strip Ql (U) Negative Normal Negative [facility] Comment on above: Order Comment: Name Collection Type:: Clean-Voided Midstream Performed By: #### U A #### [facility] [address] [place] [address] Nitrite,Urine Negative Normal Negative [facility] Comment on above: Order Comment: Name Collection Type:: Clean-Voided Midstream Performed By: #### U A #### [address] Occult Blood,Urine Negative Normal Negative [facility] Comment on above: Order Comment: Name Collection Type:: Clean-Voided Midstream Result Comment: PERF ORMED BY: [place] [address] PATHOLOGIST PAN OPERATOR SHIRA PEREIRA M.D. Performed By: #### U A #### [facility] [address] [place] [address] pH (U) 5.5 [pH] Normal 5.0-9.0 [facility] Comment on above: Order Comment: Name Collection Type:: Clean-Voided Midstream Performed By: #### U A #### [facility] [address] [place] [address] Protein,Urine Negative Normal Negative [facility] Comment on above: Order Comment: Name Collection Type:: Clean-Voided Midstream Performed By: #### U A #### [facility] [address] [place] [address] Specificy [place]erry,Urine 1.009 Normal 1.001-1.030 [facility] Comment on above: Order Comment: Name Collection Type:: Clean-Voided Midstream Performed By: #### U A #### [facility] [address] [place] [address] Urobilinogen,Urine Normal Normal Normal [facility] Comment on above: Order Comment: Name Collection Type:: Clean-Voided Midstream Performed By: #### U A #### [facility] [address] Ambulatory Clinical Summaryo n 08-10-2020 Ambulatory Clinical Summary {[id number]}CD:6143 68 Normal [facility] General Surgery Office/Clini c Noteon 08-10-2020 General [...] 08/10/2020 Family History Family history is negative [facility] Comment on above: Result Comment: Elec tronically Signed By: SANDRA AMARO, Jaden Palmer\Date and Time Signed: 08/10/20 15:40 EDT Outside Colonoscopyon 2020 Outside Colonoscopy [id number]:127 Normal [facility] Lab Reportson 08-02-2020 Lab Reports [id number]:127 Normal [facility] Provider Letter FTon 07-28 Provider Letter [facility] Kory Ambriz, [facility] [place] [address] Re: ROBBIE KEMP Date of : 1955 [...] persist. Sincerely, Jaden Soliz MD General Surgery [facility] Ambulatory Clinical Summaryo n 07-21-2020 Ambulatory Clinical Summary {[id number]}CD:6143 68 Normal [facility] Ambulatory Clinical Summary {[id number]}CD:6143 68 Normal [facility] Vital Signs Date Time Vital Sign Value Performing Clinician Facility 01-10-2022 13:39-0400 Body mass index (BMI) [Ratio] 26.3 kg/m2 Referring Provider Unknown [employer] Work Phone: 01-10-2022 13:39-0400 Body surface area Derived from formula 1.92 m2 Referring Provider Unknown [facility] [address] Work Phone: 01-10-2022 13:39-0400 Body temperature 98.1 [degF] Referring Provider Unknown TX[facility]CVBT[facility] [place] [address] Work Phone: 01-10-2022 13:39-0400 Body weight 78.47 kg Referring Provider Unknown YM[facility]WHWW[facility] [place] [address] Work Phone: 01-10-2022 13:39-0400 Diastolic blood pressure 66 mm[Hg] Referring Provider Unknown WU[facility]FRHJ[facility] [place] [address] Work Phone: 01-10-2022 13:39-0400 Heart rate 88 /min Referring Provider Unknown KG-TUYN[facility]Kael[facility] [place] [address] Work Phone: 01-10-2022 13:39-0400 Respiratory rate 16 /min Referring Provider Unknown XL-FXXI[facility]Syuq[facility] [place] [address] Work Phone: 01-10-2022 13:39-0400 SaO2% (BldA) [Mass fraction] 98 % Referring Provider Unknown HX-JDGE[facility]Gks[facility] [place] [address] Work Phone: 01-10-2022 13:39-0400 Systolic blood pressure 128 mm[Hg] Referring Provider Unknown XB-MTMW[facility]Cnp[facility] [place] [address] Work Phone: 12-12-2021 10:13-0400 Body height 172.72 cm Referring Provider Unknown KE-VOHW[facility]Hhplw [place] [address] Work Phone: 12-12-2021 10:13-0400 Body mass index (BMI) [Ratio] 26.3 kg/m2 Referring Provider Unknown PT-ZLGW-Hjj[facility] [place] [address] Work Phone: 12-12-2021 10:13-0400 Body surface area Derived from formula 1.92 m2 Referring Provider Unknown NN-SERZ-Xwb[facility] [place] [address] Work Phone: 12-12-2021 10:13-0400 Body temperature 98.1 [degF] Referring Provider Unknown LV-GSDE[facility] [address] Work Phone: 12-12-2021 10:13-0400 Body weight 78.47 kg Referring Provider Unknown YD-BXFD-Pjq[facility] [place] [address] Work Phone: 12-12-2021 10:13-0400 Diastolic blood pressure 84 mm[Hg] Referring Provider Unknown UI-TTEE[facility]Slmbf [place] [address] Work Phone: 12-12-2021 10:13-0400 Heart rate 89 /min Referring Provider Unknown PV-CTDN-Tzy[facility] [place] [address] Work Phone: 12-12-2021 10:13-0400 Respiratory rate 17 /min Referring Provider Unknown VV-MNFR-Pivpz [place] [address] Work Phone: 12-12-2021 10:13-0400 SaO2% (BldA) [Mass fraction] 99 % Referring Provider Unknown QS-BQVT-Ivnrz [place] [address] Work Phone: 12-12-2021 10:13-0400 Systolic blood pressure 144 mm[Hg] Referring Provider Unknown AU-VYYJ-Wxymd [place] [address] Work Phone: 01-24-2021 09:45-0400 Body height Arvind Marie Other [facility] Other 01-24-2021 09:45-0400 Body mass index (BMI) [Ratio] 23.57 kg/m2 Arvind Marie Other [facility] Other 01-24-2021 09:45-0400 Body weight 70.31 kg Arvind Marie Other [facility] Other 01-07-2021 10:30-0400 Body height Arvind Marie Other [facility] Other 01-07-2021 10:30-0400 Body mass index (BMI) [Ratio] 23.57 kg/m2 Arvind Belinda Other [facility] Other 01-07-2021 10:30-0400 Body weight 70.31 kg Arvind Marie Other [facility] Other 01-07-2021 10:30-0400 Diastolic blood pressure 89 mm[Hg] Arvind Marie Other [facility] Other 01-07-2021 10:30-0400 Systolic blood pressure 117 mm[Hg] Arvind Marie Other [facility] Other Encounters Encounter Date Encounter Type Care Provider Facility Start: 03-29-2023 End: 03-29-2023 ambulatory [facility] Start: 03-29-2023 End: 03-29-2023 Encounter for other preprocedural examination [facility] Start: 02-26-2023 End: 02-26-[address] [facility] Start: 07-10-2022 End: 07-11-[address] KORY AMBRIZ . Facility:[facility] Start: 06-27-2022 End: 06-28-[address] KORY AMBRIZ . Facility:[facility] Start: 05-23-2022 End: 05-24-[address] KORY AMBRIZ . Facility:[facility] Start: 01-10-2022 Office outpatient vi sit 15 minutes Referring Provider Unknown YH[facility]OBLM[facility] [place] [address] Work Phone: Start: 01-10-2022 ambulatory PCP UNKNOWN Facility:1 4342 Start: 12-12-2021 Office outpatient ne w 45 minutes Referring Provider Unknown MY-PBYI[facility] [place] [address] Work Phone: Start: 12-12-2021 ambulatory PCP UNKNOWN Facility:9 451 Start: 11-15-2021 End: 11-16-2021 ambulatory LEILA MARTIN Facility:[facility] Start: 11-03-2021 End: 11-03-2021 Discharged Recurring MD Kory Ambriz Work Phone: [facility] Start: 10-18-2021 End: 10-19-2021 ambulatory LEILA MARTIN Facility:[facility] Start: 09-30-2021 End: 10-01-2021 ambulatory YISSEL CARDOZO Facility:[facility] Start: 08-03-2021 End: 08-03-2021 ambulatory Arvind Marie Other [facility] Other Start: 08-03-2021 Telephone encounter Arvind PORTER [facility] Start: 07-06-2021 End: 07-06-2021 ambulatory Arvind Marie Other [facility] Other Start: 07-06-2021 Office outpatient vi sit 15 minutes Arvind Marie [facility] Start: 03-04-2021 End: 03-04-2021 ambulatory Arvind Marie Other [facility] Other Start: 03-04-2021 Telephone encounter Arvind PORTER [facility] Start: 02-21-2021 Postop follow up vis it related to original px Arvind Belinda [facility] Start: 02-07-2021 Telephone encounter Arvind PORTER [facility] Start: 01-24-2021 Postop follow up vis it related to original px Arvind Marie [facility] Start: 01-07-2021 End: 01-07-2021 ambulatory Arvind Marie Other [facility] Other Start: 01-07-2021 Encounter for other preprocedural examination Arvind Marie [facility] Start: 01-07-2021 Office outpatient vi sit 25 minutes Arvind Marie [facility] Start: 10-18-2017 Patient encounter UNABLE TO VALIDATE [employer] Start: 08-04-2017 End: 08-04-2017 Patient encounter [facility]ERRE Facility:[facility] Procedures Date Procedure Procedure Detail Performing Clinician Start: 01-11-2021 Antibody screen Comment on above: Result Comment: PERF ORMED BY: [facility] [address] [place] [address] PATHOLOGIST PAN OPERATOR SHIRA PEREIRA M.D. Appendectomy Referring Provi virgen [...] Nena Miguel, Status: Pen, Time: 2:10 PM RL[facility]BXNH[facility] Work Phone: Immunizations Immunization Date Immunization Notes Care Provider Holland mederos 08-27-2020 Do not use COVID-19 Pfizer 2 dose Arvind Belinda Other [facility] 08-06-2020 Do not use COVID-19 Pfizer 2 dose Arvind Belinda Other [facility] Payers Date Payer Category Payer Unknown [id number] 2. [id number] 2020 Unknown [id number] 1955 Unknown [id number] 1955 Unknown [id number] 1955 Unknown [id number] [id number] 1955 Unknown [id number] [id number] 1955 Unknown [id number] [id number] 1955 Unknown [id number] [id number] 1955 Unknown [id number] [id number] 1955 Unknown [id number] [id number] 1955 Unknown [id number] [id number] Medicare Self-pay Self Pay [id number] Unknown Unknown 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[place] [id number] Social History Date Type Detail Facility Unknown if ever smoked [facility] Other Sex Assigned At Sex Assigned At Bir th [facility] Other Cigarette smoker Cigarette smoker -[facility] Work Phone: Start: 01-25-2021 Tobacco smoking stat [facility] Smoker (finding) [facility] Start: 1955 Sex Assigned At Female F [facility] Medical Equipment Procedure Code Equipment Code Equipment Origin al Text Equipment Identifier Dates 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 Coated hip femur prosthesis, modular ()[id number] FDA Start: 01-11-2021 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 Acetabular shell ()[id number] FDA Start: 01-11-2021 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 Non-constrained polyethylene acetabular liner ()[id number] FDA Start: 01-11-2021 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 Ceramic femoral head prosthesis ()[id number] FDA Start: 01-11-2021 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 Says her BP has been much better. SOB and palpitations have been gone since BP has been better. HPI: Robbie Kepm is a 67 y.o. female with past [...] Hyperlipidemia, Hypertension, Hypothyroidism, and RA (rheumatoid arthritis) ([facility] Surgical History He has a past surgical [...] and blood pressu (more content not included)... [facility] 02-26-2023 Note 176#New patient here to [...] All other systems reviewed and are negative. [facility] 02-26-2023 Note Cardiovascular Medic ine [facility] SUBJECTIVE No chief complaint on file. [...] disease) Hyperlipidemia Hypertension Hypothyroidism RA (rheumatoid arthritis) ([facility]) Past Surgical History: Procedure Laterality Date BREAST [...] repeat labs thro (more content not included)... [facility] 12-13-2021 History of Present illness Narrative 66 yo with history of allergy and asthma. Symptoms are improved on Advair 250 BID with rare albuterol use. She has grass, tree and ragweed as well as pet allergy on immunocap 12/13/21. [facility] [address] Work Phone: 11-15-2021 Note PROCEDURE: [...] by: ELVA MELISSA Date: 2021-11-15 18:44 The [facility] 10-19-2021 Note PROCEDURE: XR FOOT R T [...] by: SAE LOPEZ Date: 2021-10-19 07:23 [facility] 09-21-2021 History of Present illness Narrative Pt here to discuss allergy symptoms. Patient has seen an print shop helper in the past, last tested in 2010. Patient states seasonal and environmental allergies. Patient t is on Zyrtec-D and Benadryl as needed. Takes Zyrtec D in the morning, last this a.m.She had a shot in September for her allergy which she thinks was a steroid.She did have her Pneumovax a couple months ago.Patient did see an print shop helper in early 2000. Was on shots 2-3 yrs. She felt it helped.Never diagnosed with asthmaSmokes occasionally. She did smoke regular in the past.Uses daily albuterol.She is worried about dog allergy. She has one dog.Patient is retired as a nurse.She worked at [employer].Moved into a new home a few years ago. Had Covid in 2019, and still feels she has some residula taste and smell issues. [id number] [address] Work Phone: 07-06-2021 Evaluation note [...] tolerated. Call with any questions or concerns. [facility] Other 11-01-2021 Evaluation note* Encounter Date Diagnosis [...] if she develops pain or further deformity [facility] Other 10-18-2021 Evaluation note* Encounter Date Diagnosis Assessment Notes Treatment Notes Treatment Clinical Notes Jan, Primary osteoarthritis of left hip (ICD-10 - M16.12) [facility] Other 10-04-2021 Evaluation note* Encounter Date Diagnosis [...] to call with any questions or concerns. [facility] Other 09-17-2021 Evaluation note* Encounter Date Diagnosis [...] was discussed. 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 I have [...] with tobacco use. Tobacco cessation program at [facility] has been recommended and offered. This discussion was limited to 5 minutes. [facility] Other 03-31-[address] Ambriz referral for ongoing abd pain had liver,pancreas & GB US all were ok still having pain diarrhea is off and on had colonoscopy & EGD at [facility] aprox 6 years ago History of Present [...] 800 mg Tab, 80 (more content not included)...[facility] CenterComment [facility]:Result Comment: Electronically Signed By: SANDRA AMARO, Jadne Palmer\Date and Time Signed: 07/21/20 15:25 [id number] NoteUpper Endoscopy, Adult Upper endoscopy is a [...] including vitamins, herbs, eye drops, creams, and qlkc-vlw-atweflu medicines. ? Any problems you or family [...] tells you to take them. ? Taking zvfz-ygt-lhscjlm medicines, vitamins, herbs, and supplements. General instructions [...] 04/06/2001 Document Revised: 10/03/19 (more content not included)...[facility] CenterEvaluation noteNo InformationNort 23press Other Evaluation noteNo assessment information available [facility] Work Phone: [place] general Narrative - Reported* Type Description Date Medical History htn Medical History high blood pressure Medical History asthma Medical History Hypothyroidism Medical History Arthritis Surgical History HYSTERECTOMY Surgical History APENDIX Surgical History colonoscopy Surgical History right post tibal repair Surgical History pelvic organ prolapse repair Surgical History right knee biopsy Surgical History breast biopsy Surgical History left total hip arthroplasty 12/23 05/13 [facility] Other History general Narrative - Reported* Type [...] 12/23 05/13 Surgical History Right Foot/Ankle 2014 [facility] Other Summary Purpose Family History No Family [...] referred by PCP, Dr. Kory Ambriz, in [facility]/u for SOB and allergies Chief Complaint and Reason for Visit Chief Complaint Right PTTD M76.821 Additional Source Comments INFORMATION SOURCE (unrecogn ized section and content) DATE CREATED AUTHOR 11/03/2017 [facility] DATE CREATED AUTHOR AUTHOR'S ORGANIZ ATION 08/11/2020 [facility] DATE CREATED AUTHOR AUTHOR'S ORGANIZ ATION 12/22/2021 [facility] DATE CREATED AUTHOR AUTHOR'S ORGANIZ ATION 01/22/2022 [facility] DATE CREATED AUTHOR AUTHOR'S ORGANIZ ATION 01/22/2022 [facility] DATE CREATED AUTHOR AUTHOR'S ORGANIZ ATION [facility]/16/2022 [facility] DATE CREATED AUTHOR AUTHOR'S ORGANIZ ATION 03/31/2023 [facility] REASON FOR VISIT (unrecogniz ed section and [...] BE BASED ON THE PRIMARY CLINICAL RECORDS. [facility]. provides no warranty or guarantee of the accuracy or completeness of information in this document.
== END 2023-06-20 10:58 | disposition home or self-care (01) ==
LOC: EC 10:58
PROVIDERS: PCP Family Medicine; Visit Provider Podiatrist Foot & Ankle Surgery
DX: M25.571 Pain in right ankle and joints of right foot (principal); Z98.890 Other specified postprocedural states
CPT/HCPCS: 73630

== ENCOUNTER 2023-10-12 08:20 | Outpatient (OUT) | payer OTHER, SELFPAY ==
--- NOTE | 2023-10-12 08:23 | MM_ITS ---
Patient Name: ROBBIE KEMP MR#: [id number] : 1955 Exam Date: 10/12/2023 Ordering Doctor: DR Rio Ambriz . RADIOLOGY REPORT PROCEDURE: MM TOMOSYNTHESIS SCREENING BI COMPARISON: MG MAMM SCREEN 3D DEREK CAD, 09/30/2021. MM TOMOSYNTHESIS SCREENING BI, 10/09/2022. INDICATIONS: Screening Calculator Name NCI Breast Cancer Risk Assessment Tool 5 Year Breast Cancer Risk 2.30% Lifetime Breast Cancer Risk 7.70% Personal Breast Cancer No Personal Ovarian Cancer No Treatments None Family Cancers Cousin-maternal with breast cancer at age ~50. LOCATION: [facility] BREAST COMPOSITION: The breasts are heterogeneously dense,which may obscure small masses. FINDINGS: DIAGNOSTIC CATEGORY 2--BENIGN FINDING. NO CHANGE FROM COMPARISON. Scattered benign-appearing calcifications are present. Scattered benign-appearing lymph nodes are present. RIGHT BREAST: No significant suspicious finding. LEFT BREAST: No significant suspicious finding. RECOMMENDATIONS: ROUTINE MAMMOGRAM AND CLINICAL EVALUATION IN 12 MONTHS. PLEASE NOTE: A NORMAL MAMMOGRAM DOES NOT EXCLUDE THE POSSIBILITY OF BREAST CANCER. A CLINICALLY SUSPICIOUS PALPABLE LUMP SHOULD BE BIOPSIED. Dictated by: Ramses Nice MD on 10/12/2023 at 10:43 Approved by: Ramses Nice MD on 10/12/2023 at 10:45
--- OUTSIDE RECORDS SUMMARY | 2023-10-12 08:24 | XMS_ITS | CCD ---
Author Organization [facility] Care Team Providers Care Crook Operator Name Role Phone IGNACIO, CAN Unavailable Unavailable IGNACIO, CAN Unavailable Unavailable IGNACIO, CAN Unavailable Unavailable UNABLE TO VALIDATE Unavailable Unavailable Mac Trevino Unavailable Unknown, Referring Provider Unavailable Unav ailable Unavailable Unavailable MD Kory Ambriz Primary Care Provider [phone] GRETA Martin Attending Provider [phone] UNKNOWN, PCP Primary Care Unavailable Lamont Brown, Dr. Deutsch Referring Unavailable Lamont Brown, Dr. Deutsch Attending Unavailable Lamont Brown, Dr. Deutsch Attending Unavailable UNKNOWN, PCP Primary Care Unavailable Lamont Brown, Dr. Deutsch Referring Unavailable Lamont Brown, Dr. Deutsch Attending Unavailable LINDA .DR HORN Admitting Unavailable HOY ., DR HORN Attending Unavailable HOCarolyne ., DR HORN Primary Care Unavailable HOCarolyne ., DR HORN Consulting Unavailable BELÉN, DR ELVA Anaya Consulting Unavailable HOY ., DR HORN Admitting Unavailable HOY .DR HORN Attending Unavailable HOY ., DR HORN Primary Care Unavailable HOY .DR HORN Consulting Unavailable BELÉN, DR ELVA Anaya Consulting Unavailable CAS, YISSEL Admitting Unavailable YISSEL CARDOZO Attending Unavailable LINDA .DR HORN Primary Care Unavailable DR SAE LOPEZ V Consulting Unavailable CAS, YISSEL Consulting Unavailable ODILIA MARTIN Admitting Unavailable ODILIA MARTIN Attending Unavailable DR KORY SAUCEDO Primary Care Unavailable DR SAE LOPEZ V Consulting Unavailable ODILIA MARTIN Consulting Unavailable ODILIA MARTIN Admitting Unavailable ODILIA MARTIN Attending Unavailable LINDA .DR HORN Primary Care Unavailable ZIEBER, DR ELVA Anaya Consulting Unavailable ODILIA MARTIN Consulting Unavailable HOCarolyne ., DR HORN Admitting Unavailable HOY ., DR HORN Attending Unavailable HOY ., DR HORN Primary Care Unavailable HOY ., DR HORN Consulting [facility]available [facility] Attending Unavailable HUSSAIN MEDELLIN Attending Unavailable MD Kory Ambriz Primary Care Provider [phone] DO Mac Trevino Attending Provider MD Sae Rodríguez Attending Provider Mac Trevino Admitting Unavailable Kory Ambriz Primary Care Unavailable Mac Trevino Attending Unavailable Sae Rodríguez Admitting Unavailable Sae Rodríguez Attending Unavailable Kory Ambriz Primary Care Unavailable Kory Ambriz Primary Care Unavailable Mac Trevino Attending Unavailable Mac Trevino Admitting Unavailable BECKHAM, NATALIE Alcantar Attending Unavailable HIGHLANDERMADELINE Referring Unavailable WENGERD, ALLYSSA Attending Unavailable HIGHLANDERMADELINE Referring Unavailable BECKHAM, NATALIE Alcantar Attending Unavailable HIGHLANDER, MADELINE Coronel Referring Unavailable WENGERD, ALLYSSA Attending Unavailable HIGHLANDERMADELINE Referring Unavailable WENGERD, ALLYSSA Attending Unavailable HIGHLANDERMADELINE Referring Unavailable BECKHAM, NATALIE Alcantar Attending Unavailable HIGHLANDER, MADELINE Coronel Referring Unavailable BECKHAM, NATALIE Alcantar Attending Unavailable HIGHLANDER, MADELINE Coronel Referring Unavailable WENGERD, ALLYSSA Attending Unavailable HIGHLANDERMADELINE Referring Unavailable BECKHAM, NATALIE Alcantar Attending Unavailable HIGHLANDER, MADELINE Coronel Referring Unavailable BECKHAM, NATALIE Alcantar Attending Unavailable HIGHLANDER, MADELINE Coronel Referring Unavailable WENGERD, ALLYSSA Attending Unavailable HIGHLANDERMADELINE Referring Unavailable MARY LOU, ABENA Attending Unavailable HIGHLANDERMADELINE Referring Unavailable BECKHAM, NATALIE Alcantar Attending Unavailable HIGHLANDER, MADELINE Coronel Referring Unavailable WENGERD, ALLYSSA Attending Unavailable HIGHLANDER, MADELINE Coronel Referring Unavailable BECKHAM, NATALIE Alcantar Attending Unavailable HIGHLANDER, MADELINE Coronel Referring Unavailable WENGERD, ALLYSSA Attending Unavailable HIGHLANDER, MADELINE Coronel Referring Unavailable BECKHAM, NATALIE Alcantar Attending Unavailable HIGHLANDER, MADELINE Coronel Referring Unavailable WENGERD, ALLYSSA Attending Unavailable HIGHLANDERMADELINE Referring Unavailable BECKHAM, NATALIE Alcantar Attending Unavailable HIGHLANDER, MADELINE Coronel Referring Unavailable WENGERD, ALLYSSA Attending Unavailable HIGHLANDER, PETER D Referring Unavailable WENGERD, ALLYSSA Attending Unavailable HIGHLANDER, PETER D Referring Unavailable WENGERD, ALLYSSA Attending Unavailable HIGHLANDER, PETER D Referring Unavailable BECKHAM, NATALIE L Attending Unavailable HIGHLANDER, PETER D Referring Unavailable BECKHAM, NATALIE L Attending Unavailable FRANK, MAC Referring Unavailable BECKHAM, NATALIE L Attending Unavailable FRANK, MAC Referring Unavailable BECKHAM, NATALIE L Attending Unavailable FRANK, MAC Referring Unavailable WENGERD, ALLYSSA Attending Unavailable FRANK, MAC Referring Unavailable BECKHAM, NATALIE L Attending Unavailable FRANK, MAC Referring Unavailable BECKHAM, NATALIE L Attending Unavailable FRANK, MAC Referring Unavailable BECKHAM, NATALIE L Attending Unavailable FRANK, MAC Referring Unavailable MARY SEALS Attending Unavailable BECKHAM, NATALIE L Attending Unavailable FRANK, MAC Referring Unavailable BECKHAM, NATALIE L Attending Unavailable FRANK, MAC Referring Unavailable WENGERD, ALLYSSA Attending Unavailable FRANK, MAC Referring Unavailable RINKES, YISSEL E Attending Unavailable RINKES, YISSEL E Referring Unavailable WENGERD, ALLYSSA Attending Unavailable FRANK, MAC Referring Unavailable WENGERD, ALLYSSA Attending Unavailable FRANK, MAC Referring Unavailable Allergies Allergy Classification Reported Allergen(s) Allergy Type Date of Onset Reaction(s) Facility (15 sources) HYDROmorphone; Translations: [HYDROMORPHONE] Drug Allergy 01-26-20 [facility] (14 sources) Morphine Drug Allergy 01-26-20 rash [facility] (7 sources) Penicillin V Drug Allergy [facility] Other (7 sources) sulfaSALAzine Drug Allergy [facility] Other (10 sources) Penicillins; Translations: [Penicillins] Allergy to drug (finding) 01-26-20 Itching, [facility] (2 sources) Sulfamethoxazole; Translations: [sulfa] Drug Allergy [place]ching [id number] [id number] Work Phone: (8 sources) Sulfonamides (Antibiotic); Translations: [Sulfa (Sulfonamide Antibiotics)] Allergy to substance 01-26-20 [facility] (1 source) Ciprofloxacin Drug Allergy [facility] (2 sources) fentaNYL; Translations: [FENTANYL] Drug Allergy 04-23-19 15 [facility] (1 source) HYDROmorphone Drug Allergy 11-29-19 13 [facility] (1 source) Penicillins Drug allergy (disorder) 04-27-19 21 [facility] (1 source) Sulfonamides (Antibiotic) Drug allergy (disorder) 11-29-19 13 [facility] (1 source) Sulfanilamide; Translations: [SULFANILAMIDE] Drug Allergy 09-06-19 23 [facility] Rep[facility] (1 source) HYDROmorphone Drug Allergy 08-15-19 24 [facility] (1 source) Morphine Drug Allergy 08-15-19 [facility] (1 source) Penicillins Drug allergy (disorder) 08-15-19 [facility] Medications Current Medications Medication Drug Class(es) Dates Sig (Normalized) Sig (Original) acyclovir 800 mg oral tablet (5 sources) Herpesvirus Nucleoside Analog DNA Polymerase Inhibitor, Herpes Simplex Virus Nucleoside Analog DNA Polymerase Inhibitor, Herpes Zoster Virus Nucleoside Analog DNA Polymerase Inhibitor Start: 08-16-2023 Acyclovir Active 800 MG PO August 16, 2023 12:00am Start: 09-08-2021 take 1 tablet by reji th once daily Acyclovir 800 MG Oral Tablet TAKE 1 TABLET BY MOUTH DAILY Quantity: 30 Refills: 0 Ordered: 08-Sep-2021 DO Start : 08-Sep-2021 Active amLODIPine 5 mg oral tablet (3 sources) Dihydropyridine Calcium Channel Cathy Start: 08-16-2023 take 1 tablet by mouth once daily Amlodipine (Norvasc) 5 mg tablet Active 5 MG PO Daily August 16, 2023 12:00am aspirin 81 mg chewable tablet (2 sources) Platelet Aggregation Inhibitor, Nonsteroidal Anti-inflammatory Drug take 1 tablet by mouth every twelve hours Aspirin 81 MG 1 tablet Orally twice a day for 37 days Do not fill until 01/10/21 post op MARK Active carvedilol 25 mg oral tablet (19 sources) alpha-Adrenergic Cathy, beta-Adrenergic Cathy Start: 08-16-2023 take 25 mg by mouth twice daily Carvedilol Active 25 MG PO Twice daily August 16, 2023 12:00am Start: 09-03-2020 End: 08-16-2023 take 1 tablet by mouth twice daily Carvedilol (Coreg) 6.25 mg Tablet Discontinued 6.25 MG PO Twice daily December 29, 2020 12:00am August 16, 2023 2:05pm 24 hr desvenlafaxine succinate 50 mg extended release oral tablet (3 sources) Serotonin and Norepinephrine Reuptake Inhibitor Start: 08-16-2023 take 50 mg by mouth once daily Desvenlafaxine Succinate Active 50 MG PO Daily August 16, 2023 12:00am diclofenac sodium 75 mg delayed release oral tablet (10 sources) Nonsteroidal Anti-inflammatory Drug Start: 08-16-2023 take 75 mg by mouth twice daily Diclofenac Sodium Active 75 MG PO Twice daily August 16, 2023 2:09pm Start: 08-15-2023 End: 08-16-2023 Diclofenac Sodium Discontinu ed MG PO August 15, 2023 12:00am August 16, 2023 2:09pm Start: 06-02-2021 take 1 tablet by reji th twice daily Diclofenac Sodium 75 MG Oral Tablet Delayed Release TAKE 1 TABLET BY MOUTH TWICE DAILY Quantity: 60 Refills: 0 Ordered: 02-Jun-2021 DO Start : 02-Jun-2021 Complete take 1 tablet by reji th every twelve hours Diclofenac Sodium 75 MG 1 tablet as needed Orally Twice a day Active estradiol 0.5 mg oral tablet (18 sources) Estrogen Start: 12-29-2020 take 1 mg by mouth once daily at bedtime Estradiol Active 1 MG PO Daily at bedtime December 29, 2020 12:00am Start: 09-01-2020 take 1 tablet by reji th once daily Estradiol 0.5 MG Oral Tablet TAKE 1 TABLET BY MOUTH DAILY Quantity: 30 Refills: 0 Ordered: 29-Aug-2021 DO Start : 01-Sep-2020 Active Fluticasone Propion-Salmeterol (5 sources) Corticosteroid, beta2-Adrenergic Agonist Start: 08-16-2023 Fluticasone Propion-Salmeterol (Wixela Inhub) 250-50 mcg/dose blister with device Active 1 INH INHALATION Twice daily August 16, 2023 12:00am Start: 12-12-2021 Fluticasone-Sa lmeterol 250-50 MCG/ACT Inhalation Aerosol Powder Breath Activated USE 1 INHALATION TWICE A DAY Quantity: 1 Refills: 5 Ordered: 10-Jan-2022 Cassandra Miguel DOcy Start : 12-Dec-2021 Active lisinopril 40 mg oral tablet (19 sources) Angiotensin Converting Enzyme Inhibitor Start: 08-16-2023 take 40 mg by mouth once daily Lisinopril Active 40 MG PO Daily August 16, 2023 12:00am Start: 12-29-2020 End: 08-16-2023 take 10 mg by mouth once daily at bedtime Lisinopril Discontinued 10 MG PO Daily at bedtime December 29, 2020 12:00am August 16, 2023 2:07pm [facility] Lisinopril 40 MG 1 tablet Orally Once a day Active omeprazole 20 mg delayed release oral capsule (20 sources) Proton Pump Inhibitor Start: 08-16-2023 take 20 mg by mouth once daily Omeprazole Active 20 MG PO Daily August 16, 2023 12:00am Start: 06-02-2021 take 1 capsule by mo [facility] once daily Omeprazole 20 MG Oral Capsule Delayed Release TAKE 1 CAPSULE BY MOUTH DAILY Quantity: 30 Refills: 0 Ordered: 29-Aug-2021 DO Start : 02-Jun-2021 Active Start: 12-29-2020 End: 08-16-2023 take 40 mg by mouth twice daily Omeprazole Discontinue d 40 MG PO Twice daily December 29, 2020 12:00am August 16, 2023 2:07pm Start: 07-07-2020 take 1 capsule by mo [facility] every twelve hours Omeprazole 40 MG Oral Capsule Delayed Release TAKE 1 CAPSULE BY MOUTH EVERY 12 HOURS Quantity: 60 Refills: 0 Ordered: 27-May-2021 DO Start : 07-Jul-2020 Complete take 1 capsule by mo [facility] once daily Omeprazole 40 MG 1 capsule 30 minutes before morning meal Orally Once a day Active simvastatin 20 mg oral tablet (16 sources) HMG-CoA Reductase Inhibitor Start: 12-29-2020 take 20 mg by mouth once daily at bedtime Simvastatin Active 20 MG PO Daily at bedtime December 29, 2020 12:00am Tylenol Extra Strength 500 MG (4 sources) take 2 tablets by mouth every eight hours as needed Tylenol Extra [...] Sig (Original) acetaminophen 500 mg oral tablet (11 sources) Start: 12-29-2020 End: 08-15-2023 Acetaminophen (Tylenol Ex Str Rapid Release) 500 mg Tablet Discontinued 1000 MG PO Q6H December 29, 2020 12:00am August 15, 2023 8:46am take 1 tablet by mouth every fou r hours Tylenol 325 MG 1 tablet as needed Orally every 4 hrs Active albuterol 0.83 mg/ml inhalation solution (3 sources) beta2-Adrenergic Agonist Start: 12-12-2021 Albut melissa Sulfate (2.5 MG/3ML) 0.083% Inhalation Nebulization Solution Nebulize 1 unit dose now via nebulizer Quantity: 0 Refills: 0 Ordered: 12-Dec-2021 Lamont La Nena Start : 12-Dec-2021 Complete Start: 06-02-2021 take [...] 05-May-2021 Active carisoprodol 350 mg oral tablet (8 sources) Muscle Relaxant Start: 05-02-2021 take 2 tablets by mouth at bedtime Carisoprodol 350 MG Oral Tablet TAKE 2 TABLETS BY MOUTH AT BEDTIME Quantity: 60 Refills: 0 Ordered: 02-May-2021 DO Start : 02-May-2021 Complete Start: 12-29-2020 take 700 mg by mouth once daily at bedtime Carisoprodol Active 700 MG PO Daily at bedtime December 29, 2020 12:00am celecoxib 200 mg oral capsule (2 sources) [...] every 8 hours for 14 days Active diphenhydrAMINE hydrochloride 25 mg oral tablet [...] Ordered: 10-Jan-2021 DO Start : 07-Jan-2021 Complete ibuprofen 800 mg oral tablet (5 sources) [...] Active levothyroxine sodium 0.05 mg oral tablet (16 sources) l-Thyroxine Start: 06-02-2021 take 1 tablet [...] empty stomach Orally Once a day Active ondansetron 4 [...] Ordered: 31-Jul-2021 DO Start : 04-Jul-2021 Complete traMADol hydrochloride 50 mg oral tablet (10 sources) Opioid Agonist Start: 12-15-2020 End: 08-15-2023 take 50 mg by mouth three times daily Tramadol Discontinued 50 MG PO Three times daily December 29, 2020 12:00am August 15, 2023 8:46am take 1 tablet by reji th every twenty-four hours traMADol HCl 50 MG 1 tablet as needed Orally Once a day Active 7 actuat umeclidinium 0.0625 mg/actuat dry [...] above: pollen and pets immu nocap 11/2021; Anxiety disorders (6 sources) Generalized anxiety disorder; Translations: [Generalized anxiety disorder] 08-16-2023 Chronic Asthma (1 source) Moderate persistent asthma; Translations: [Asthma, unspecified type, unspecified] Chronic Deficiency and other anemia (1 source) Anemia, unspecified; Translations: [ANEMIA UNSPECIFIED] Onset: 05-25-2022 Episodic Diabetes mellitus without complication (1 source) Other abnormal glucose; Translations: [OTHER ABNORMAL GLUCOSE] Onset: 05-25-2022 Episodic Disorders of lipid metabolism (3 sources) Hyperlipidemia, unspecified; Translations: [Mixed hyperlipidemia] Onset: 05-25-2022 Chronic Esophageal disorders (7 sources) Gastro-esophageal reflux disease without esophagitis; Translations: [Gastroesophageal reflux disease] Onset: 05-25-2022 08-16-2023 Chronic Essential hypertension (8 sources) Essential (primary) hypertension; Translations: [Hypertensive disorder] Onset: 03-29-2023 Chronic Nonspecific chest pain (7 sources) Atypical chest pain; Translations: [Other chest pain] 01-25-2021 Episodic Nutritional deficiencies (1 source) Vitamin D deficiency, unspecified; Translations: [VITAMIN D DEFICIENCY UNSPECIFIED] Onset: 05-25-2022 Chronic Osteoarthritis (20 sources) Osteoarthritis of left hip joint; Translations: [Unilateral primary osteoarthritis, left hip] Onset: 01-07-2021 Resolved: 02-07-2021 Chronic Other connective tissue disease (6 sources) History of total hip arthroplasty; Translations: [Presence of left artificial hip joint] 08-01-2023 Chronic Other connective tissue disease (13 sources) Presence of left artificial hip joint; Translations: [Hip joint replacement] Onset: 08-01-2023 08-01-2023 Chronic Other connective tissue disease (7 sources) Foot pain; Translations: [Pain in unspecified foot] 12-18-2020 Episodic Other connective tissue disease (6 sources) Trochanteric bursitis; Translations: [Trochanteric bursitis, left hip] 08-01-2023 Episodic Other connective tissue disease (12 sources) Trochanteric bursitis, left hip; Translations: [Enthesopathy of hip region] 08-01-2023 Episodic Other inflammatory condition of skin (2 [...] [NONSCARRING HAIR LOSS UNSPECIFIED] Onset: 05-25-2022 Episodic Other skin disorders (2 sources) Lump on finger; Translations: [Localized swelling, mass and lump, right upper limb] 10-03-2023 Episodic Other skin disorders (3 sources) Localized swelling, mass and lump, right upper limb; Translations: [Localized superficial swelling, mass, or lump] Onset: 10-03-2023 10-03-2023 Episodic Residual codes; unclassified (3 sources) Sleep apnea; Translations: [Sleep apnea, unspecified] 08-16-2023 Chronic Residual codes; unclassified (4 sources) Sleep apnea, unspecified; Translations: [Unspecified sleep apnea] Onset: 09-04-2023 08-16-2023 Chronic Spondylosis; intervertebral disc disorders; other back problems (2 sources) Other cervical disc degeneration, unspecified cervical region; Translations: [Spondylosis without myelopathy or radiculopathy, cervical region] Onset: 06-29-2022 Chronic Spondylosis; intervertebral disc disorders; other back problems (4 sources) Cervicalgia; Translations: [CERVICALGIA] Onset: 07-10-2022 Episodic Thyroid disorders (10 sources) Hypothyroidism, unspecified; Translations: [Hypothyroidism] Onset: 05-23-2022 Chronic Past or Other Problems [...] Test Name Value Interpretation Reference Range Facility XR hand RT min 3V*on 024 XR hand RT min 3V* [facility] [address] [place] [id number] XRay Report Signed Patient: Robbie Kemp MR#: [id number] : 1955 Acct:[id number] Age/Sex: 68 / F ADM Date: 10/03/23 Loc: [facility] Room: Type: [facility] Attending Dr: Mac Trevino DO Copies to: Mac Trevino DO Ordering Provider: Mac Trevino DO Date of Service: 10/03/23 XR/XR hand RT min 3V*: R22.31 - Localized swelling, mass and lump, right upper limb 4 views RIGHT hand hand plain film COMPARISON: None HISTORY: Localized RIGHT hand swelling ACUTE FINDINGS: None DEGENERATIVE CHANGE: Extensive RIGHT 1st carpometacarpal degeneration includes joint space narrowing with marginal spurring and degenerative subluxation. Moderate interphalangeal degeneration SOFT TISSUE FINDINGS: Unremarkable JOINT EFFUSION: None POSTOP CHANGES: None BONY MINERALIZATION: Adequate XR/XR hand RT min 3V* IMPRESSION: Extensive 1st carpometacarpal degeneration. Impression dictated by: Tripp Johnson M.D.10/03/2023 3:10 PM Dictation Location: [place] [address] Transcribed By: [facility] 10/03/23 1510 Dictated By: Tripp Johnson DO 10/03/23 1508 Signed By: 10/03/23 1510 Normal [facility] XR hip LT min 2V(w/wo pelvis )*on 08-01-2023 XR hip LT min 2V(w/wo pelvis)* [facility] [place] [address] XRay Report Signed Patient: Robbie Kemp MR#: [id number] : 1955 Acct:[id number] Age/Sex: 68 / F ADM Date: 08/01/23 Loc: [facility] Room: Type: [facility] Attending Dr: Mac Trevino DO Copies to: Mac Trevino DO Ordering Provider: Mac Trevino DO Date of Service: 08/01/23 XR/XR hip LT min 2V(w/wo pelvis)*: Z96.642 - Presence of left artificial hip joint LEFT HIP - 2 views: CLINICAL HISTORY: Increased posterior hip pain for 2 weeks. COMPARISON: Left hip 07/06/2021 FINDINGS: Left MARK without radiographic complication. No acute bony process. XR/XR hip LT min 2V(w/wo pelvis)* IMPRESSION: NO HARDWARE COMPLICATION OR ACUTE BONY PROCESS.. Impression dictated by: Thomas Delgado Jr., D.O.08/01/2023 2:49 PM Dictation Location: [place] [address] Transcribed By: [facility] 08/01/23 1449 Dictated By: Thomas Delgado Jr, DO 08/01/23 1449 Signed By: 08/01/23 1449 Normal [facility] Office Visiton 03-29-2023 Follow-up visit [id number] Robbie Kemp 1955 F Date Provider Department Center 03/29/2023 271-[address] KE[address] ALEXANDRA Benedict Family History Problem Relation Age of Onset Hypertension Mother Atrial fibrillation Sister Family Status - Relation Status Age at Mother Sister Alive Level of Service:69341 IA OFFICE/OUTPATIENT ESTABLISHED MOD MDM 30-39 MIN Normal [facility] Office Visiton 02-26-2023 Follow-up visit [id number] Robbie Kemp 1955 M Date Provider Department Center 02/26/2023 [id number] MEDELLIN ALEXANDRA Benedict Family History Problem Relation Age of Onset Hypertension Mother Atrial fibrillation Sister Family Status - Relation Status Age at Mother Sister Alive Level of Service:65050 IA OFFICE/OUTPATIENT ESTABLISHED MOD MDM 30-39 MIN Normal [facility] MRI CSPINE WO CONon 07-12-19 23 [...] by: ELVA MELISSA Date: 2022-07-11 11:43 Normal [facility] XR CSPINE MIN 4 VIEWSon 03-0 XR CSPINE MIN 4 VIEWS EXAMINATION: XR [...] ELVA MELISSA Date: 2022-06-28 09:12 Normal [facility] CBC AUTO DIFFon 05-23-2022 BASO # 0.1 103/ul Normal 0.0-0.1 [facility] Comment on above: Performed By: #### C BC #### [facility] [address] [place] [address] Dr. Natasha Celeste Basophils/100 WBC (Bld) 1.4 % Normal 0.2-2.0 [facility] Comment on above: Performed By: #### C BC #### [facility] [address] [place] [address] Dr. Natasha Celeste EO # 0.1 103/ul Normal 0.0-0.7 [facility] Comment on above: Performed By: #### C BC #### [facility] [address] [place] [address] Dr. Natasha Celeste Eosinophils/100 WBC (Bld) 2.4 % Normal 0.9-7.0 [facility] Comment on above: Performed By: #### C BC #### [facility] [address] [place] [address] Dr. Natasha Celeste Erythrocyte distribution width (RBC) [Ratio] 12.3 % Normal 11.0-15.0 [facility] Comment on above: Performed By: #### C BC #### [facility] [address] [place] [address] Dr. Natasha Celeste Hematocrit (Bld) [Volume fraction] 41.6 % Normal 36.0-48.0 [facility] Comment on above: Performed By: #### C BC #### [facility] [address] [place] [address] Dr. Natasha Celeste Hemoglobin (Bld) [Mass/Vol] 13.6 g/dL Normal 12.0-16.0 [facility] Comment on above: Performed By: #### C BC #### [facility] [address] [place] [address] Dr. Natasha Celeste IG # 0.02 10e3/ul Normal 0.00-0.03 [facility] Comment on above: Performed By: #### C BC #### [facility] [address] [place] [address] Dr. Natasha Celeste IG % 0.5 % Normal 0.0-0.5 [facility] Comment on above: Performed By: #### C BC #### [facility] [address] [place] [address] Dr. Natasha Ceelste LYMPH # 1.4 103/ul Normal 1.2-3.8 [facility] Comment on above: Performed By: #### C BC #### [facility] [address] [place] [address] Dr. Natasha Celeste Lymphocytes/100 WBC (Bld) 33.3 % Normal 20.5-60.0 [facility] Comment on above: Performed By: #### C BC #### [facility] [address] [place] [address] Dr. Natasha Celeste MANUAL DIFF REQ NO Normal [facility] Comment on above: Performed By: #### C BC #### [facility] [address] [place] [address] Dr. Natasha Celeste MCH (RBC) [Entitic mass] 33.1 pg Normal 26.7-34.0 [facility] Comment on above: Performed By: #### C BC #### [facility] [address] [place] [address] Dr. Natasha Celeste MCHC (RBC) [Mass/Vol] 32.7 g/dL Normal 29.9-35.2 [facility] Comment on above: Performed By: #### C BC #### [facility] [address] [place] [address] Dr. Natasha Celeste MCV (RBC) [Entitic vol] 101.2 fL Critically high 81.0-99.0 [facility] Comment on above: Performed By: #### C BC #### [facility] [address] [place] [address] Dr. Natasha Celeste MONO # 0.4 103/ul Normal 0.3-0.8 [facility] Comment on above: Performed By: #### C BC #### [facility] [address] [address] [address] Natasha Celeste Monocytes/100 WBC (Bld) 10.4 % Normal 1.7-12.0 [facility] Comment on above: Performed By: #### C BC #### [facility] [address] [address] [address] Natasha Celeste NEUT # 2.2 103/ul Normal 1.4-6.5 [facility] Comment on above: Performed By: #### C BC #### [facility] [address] [address] [address] Natasha Celeste Neutrophils/100 WBC (Bld) 52.0 % Normal 43.0-75.0 [facility] Comment on above: Performed By: #### C BC #### [facility] [address] [place] [address] Dr. Natasha Celeste Platelet mean volume (Bld) [Entitic vol] 9.5 fL Normal 9.5-13.5 [facility] Comment on above: Performed By: #### C BC #### [facility] [address] [address] [address] Natasha Celeste PLT 186 103/ul Normal 150-450 [facility] Comment on above: Performed By: #### C BC #### [facility] [address] [place] [address] Dr. Natasha Celeste RBC 4.11 106/ul Critically low 4.20-5.40 [facility] Comment on above: Performed By: #### C BC #### [facility] [address] [place] [address] Dr. Natasha Celeste WBC 4.2 103/ul Normal 4.0-11.0 [facility] Comment on above: Performed By: #### C BC #### [facility] [address] [place] [address] Dr. Natasha Celeste FREE THYROXINE INDEX T7on FTI 3.47 Normal 1.30-4.50 [facility] Comment on above: Performed By: #### V ITAD, IRON #### [facility] [address] [place] [address] Dr. Natasha Celeste T3U 35.0 % Normal 30.0-39.0 [facility] Comment on above: Performed By: #### V ITAD, IRON #### [facility] [address] [place] [address] Dr. Natasha Celeste T4 [Mass/Vol] 9.90 ug/dL Normal 4.80-13.90 [facility] Comment on above: Performed By: #### V ITAD, IRON #### [facility] [address] [place] [address] Dr. Natasha Celeste GLYCOHEMOGLOBIN A1Con 2022 ADA RECOMMENDATION SEE BELOW Normal [facility] Comment on above: Result Comment: ADA RECOMMENDED LIMIT 4.0 - 6.0 ADA THERAPEUTIC TARGET < 7.0 ACTION SUGGESTED > 7.0 Performed By: #### A 1C #### [facility] [address] [place] [address] Dr. Natasha Celeste Glucose [Mass/Vol] 97 mg/dL Normal [facility] Comment on above: Performed By: #### A 1C #### [facility] [address] [place] [address] Dr. Natasha Celeste HbA1c (Bld) [Mass fraction] 5.0 % Normal 4.5-6.2 [facility] Comment on above: Performed By: #### A 1C #### [facility] [address] [place] [address] Dr. Natasha Celeste IRONon 05-23-2022 Iron [Mass/Vol] 105.0 ug/dL Normal 50.0-170.0 [facility] Comment on above: Performed By: #### V ITAD, IRON #### [facility] [address] [place] [address] Dr. Natasha Celeste LIPID PROFILEon 05-23-2022 CHOL-HDL RATIO NORM SEE BELOW Normal [facility] Comment on above: Result Comment: 3.3 - 4.4 LOW RISK 4.4 - 7.1 AVERAGE RISK 7.1 - 11.0 MODERATE RISK >11.0 HIGH RISK Performed By: #### V ITAD, IRON #### [facility] [address] [address] [address] Natasha Celeste Cholesterol [Mass/Vol] 176 mg/dL Normal <=200 [facility] Comment on above: Performed By: #### V ITAD, IRON #### [facility] [address] [address] [address] Natasha Celeste Cholesterol in HDL [Mass/Vol] 70 mg/dL Critically high 40-60 [facility] Comment on above: Performed By: #### V ITAD, IRON #### [facility] [address] [address] [address] Natasha Celeste Cholesterol in LDL [Mass/Vol] 83.2 mg/dL Normal [facility] Comment on above: Performed By: #### V ITAD, IRON #### [facility] [address] [place] [address] Dr. Natasha Celeste Cholesterol.total/ Cholesterol in HDL [Mass ratio] 2.5 {ratio} Normal [facility] Comment on above: Performed By: #### V ITAD, IRON #### [facility] [address] [address] [address] Natasha Celeste HDL NORMAL > or = 60 mg/dl - LO W CARDIOVASCULAR RISK <40 mg/dl - HIGH CARDIOVASCULAR RISK Normal [facility] Comment on above: Performed By: #### V ITAD, IRON #### [facility] [address] [address] [address] Natasha Celeste LDL CALC NORMAL SEE BELOW Normal [facility] Comment on above: Result Comment: <100 mg/dl OPTIMAL 100 - 129 mg/dl NEAR OR ABOVE OPTIMAL 130 - 159 mg/dl BORDERLINE HIGH 160 - 189 mg/dl HIGH >190 mg/dl VERY HIGH Performed By: #### V ITAD, IRON #### [facility] [address] [address] [address] Natasha Celeste Triglyceride [Mass/Vol] 114 mg/dL Normal <=150 [facility] Comment on above: Performed By: #### V ITAD, IRON #### [facility] [address] [address] [address] Natasha Celeste VLDL CALC 22.8 mg/dL Normal [facility] Comment on above: Performed By: #### V ITLUIS, IRON #### [facility] [address] [place] [address] Dr. Natasha Celeste PROF 14(COMP METB)on 023 Albumin [Mass/Vol] 3.8 g/dL Normal 3.4-5.0 [facility] Comment on above: Performed By: #### V ITAD, IRON #### [facility] [address] [place] [address] Dr. Natasha Celeste Albumin/Globulin [Mass ratio] 1.0 {ratio} Normal [facility] Comment on above: Performed By: #### V ITLUIS, IRON #### [facility] [address] [place] [address] Dr. Natasha Celeste ALP [Catalytic activity/Vol] 74 U/L Normal 46-116 [facility] Comment on above: Performed By: #### V ITAD, IRON #### [facility] [address] [place] [address] Dr. Natasha Celeste ALT [Catalytic activity/Vol] 37 U/L Normal 14-59 [facility] Comment on above: Performed By: #### V ITAD, IRON #### [facility] [address] [place] [address] Dr. Natasha Celeste Anion gap [Moles/Vol] 14.7 mmol/L Normal [facility] Comment on above: Performed By: #### V ITAD, IRON #### [facility] [address] [place] [address] Dr. Natasha Celeste AST [Catalytic activity/Vol] 34 U/L Normal 15-37 [facility] Comment on above: Performed By: #### V ITAD, IRON #### [facility] [address] [place] [address] Dr. Natasha Celeste Bilirubin [Mass/Vol] 0.5 mg/dL Normal 0.2-1.0 [facility] Comment on above: Performed By: #### V ITAD, IRON #### [facility] [address] [address] [address] Natasha Celeste Calcium [Mass/Vol] 8.9 mg/dL Normal 8.5-10.1 [facility] Comment on above: Performed By: #### V ITAD, IRON #### [facility] [address] [place] [address] Dr. Natasha Celeste Chloride [Moles/Vol] 103 mmol/L Normal 98-107 [facility] Comment on above: Performed By: #### V ITAD, IRON #### [facility] [address] [place] [address] Dr. Natasha Celeste CO2 [Moles/Vol] 27.4 mmol/L Normal 21.0-32.0 [facility] Comment on above: Performed By: #### V ITAD, IRON #### [facility] [address] [place] [address] Dr. Natasha Celeste Creatinine [Mass/Vol] 0.69 mg/dL Normal 0.55-1.02 [facility] Comment on above: Performed By: #### V ITAD, IRON #### [facility] [address] [place] [address] Dr. Natasha Celeste EGFR-AF THAI >60 Normal >=60 [facility] Comment on above: Performed By: #### V ITAD, IRON #### [facility] [address] [place] [address] Dr. Natasha Celeste EGFR-NON AF THAI >60 Normal >=60 [facility] Comment on above: Performed By: #### V ITAD, IRON #### [facility] [address] [place] [address] Dr. Natasha Celeste Globulin (S) [Mass/Vol] 3.9 g/dL Normal [facility] Comment on above: Performed By: #### V ITAD, IRON #### [facility] [address] [place] [address] Dr. Natasha Celeste Glucose [Mass/Vol] 103 mg/dL Normal 74-106 [facility] Comment on above: Performed By: #### V ITAD, IRON #### [facility] [address] [place] [address] Dr. Natasha Celeste Potassium [Moles/Vol] 4.1 mmol/L Normal 3.5-5.1 [facility] Comment on above: Performed By: #### V ITAD, IRON #### [facility] [address] [place] [address] Dr. Natasha Celeste Protein [Mass/Vol] 7.7 g/dL Normal 6.4-8.2 [facility] Comment on above: Performed By: #### V ITAD, IRON #### [facility] [address] [address] [address] Natasha Celeste Sodium [Moles/Vol] 141 mmol/L Normal 136-145 [facility] Comment on above: Performed By: #### V ITAD, IRON #### [facility] [address] [address] [address] Natasha Celeste Urea nitrogen [Mass/Vol] 19.0 mg/dL Critically high 7.0-18.0 [facility] Comment on above: Performed By: #### V ITAD, IRON #### [facility] [address] [address] [address] Natasha Celeste Urea nitrogen/Creatinin e [Mass ratio] 27.5 mg/mg Normal [facility] Comment on above: Performed By: #### V ITAD, IRON #### [facility] [address] [address] [address] Natasha Celeste TSHon 05-23-2022 TSH 0.405 uIU/mL Normal 0.358-3.740 [facility] Comment on above: Performed By: #### T 7, TSH, CMP, LIPID #### [facility] [address] [address] [address] Natasha Celeste VITAMIN D 25 OHon 05-23-2022 VIT D 25-OH 37.2 ng/mL Normal [facility] Comment on above: Performed By: #### V ITAD, IRON #### [facility] [address] [place] [address] Dr. Natasha Celeste VIT D RANGES SEE BELOW Normal [facility] Comment on above: Result Comment: <20 ng/mL Vit D deficient 20 - <30 ng/mL Vit D insufficient 30 - 100 ng/mL Vit D sufficient >100 ng/mL Potential Toxicity Performed By: #### V ITAD, IRON #### [facility] [address] [place], [place] [address] Dr. Natasha Celeste Office Visit (Allergy/Immuno logy)on [...] for SOB and allergies History of Present Rjskuim77 yo with history of allergy and asthma. [...] TABLET BY MOUTH DAILY Zyrtec-D 5-120 MG IN24WSRU 1 TABLET TWICE DAILY NEEDED. Vitals Vital Signs Recorded: 10Jan2022 01:39PM Joahsaoouyo03.1 F, Temporal Heart Rate88 Twqgwwewvji32 Jkmqywvc282 Teaqoajmy41 Ggnoab158 lb BMI Wrxaigraqk10.3 kg/m2 BSA Calculated1.92 Tobacco Usea) Yes O2 Dbbmhqwllx68, RA Physical Exam Constitutional General appearance: Well [...] masses. Pulmo (more content not included)... Normal [facility] Tobacco Screening.on [address] [facility] a) Yes [email or web address] carolyne Lara [address]A Work Phone: RESPIRATORY ALLERGY PROFILE, IGE,ICon 12-13-2021 ALTERNARIA,IGE,IC 4.04 KU/L Abnormal <0.35 [facility] Comment on above: Result Comment: SEE IMMUNOCAP INTERP.IGE Performed By: #### I CPA2 #### [facility] [address] [place] [id number] JOSE C,WHITE,IGE,IC 0.15 KU/L Normal <0.35 [facility] Comment on above: Result Comment: SEE IMMUNOCAP INTERP.IGE Performed By: #### I CPA2 #### [facility] [address] [place] [id number] ASPERGILUS,IGE,IC 0.30 KU/L Normal <0.35 [facility] Comment on above: Result Comment: SEE IMMUNOCAP INTERP.IGE Performed By: #### I CPA2 #### [facility] [address] [place] [id number] BIRCH,IGE,IC <0.10 Normal <0.35 [facility] Comment on above: Result Comment: SEE IMMUNOCAP INTERP.IGE Performed By: #### I CPA2 #### [facility] [address] [place] [address] BOX ELDER,IGE,IC 0.56 KU/L Abnormal <0.35 [facility] Comment on above: Result Comment: SEE IMMUNOCAP INTERP.IGE Performed By: #### I CPA2 #### [facility] [address] [place] [id number] CAT EPI./DANDER,IGE,IC 1.97 KU/L Abnormal <0.35 [facility] Comment on above: Result Comment: SEE IMMUNOCAP INTERP.IGE Performed By: #### I CPA2 #### [facility] [address] [place] [id number] CEDAR MTN/JUNIPER,IGE,IC 0.16 KU/L Normal <0.35 [facility] Comment on above: Result Comment: SEE IMMUNOCAP INTERP.IGE Performed By: #### I CPA2 #### [facility] [address] [place] [id number] CLADOSPORIUM HERBARUM IGE,IC 0.38 KU/L Abnormal <0.35 [facility] Comment on above: Result Comment: SEE IMMUNOCAP INTERP.IGE Performed By: #### I CPA2 #### [facility] [address] [place] [address] COCKROACH,IGE,IC <0.10 Normal <0.35 [facility] Comment on above: Result Comment: SEE IMMUNOCAP INTERP.IGE Performed By: #### I CPA2 #### [facility] [address] [place] [address] COTTONWOOD,IGE,IC <0.10 Normal <0.35 [facility] Comment on above: Result Comment: SEE IMMUNOCAP INTERP.IGE Performed By: #### I CPA2 #### [facility] [address] [place] [address] D.FARINA,IGE,IC <0.10 Normal <0.35 [facility] Comment on above: Result Comment: SEE IMMUNOCAP INTERP.IGE Performed By: #### I CPA2 #### [facility] [address] [place] [id number] D.PTERONYSSINUS,IG E,IC <0.10 Normal <0.35 [facility] Comment on above: Result Comment: SEE IMMUNOCAP INTERP.IGE Performed By: #### I CPA2 #### [facility] [address] [place] [id number] DOG DANDER IGE,IC 3.91 KU/L Abnormal <0.35 [facility] Comment on above: Result Comment: SEE IMMUNOCAP INTERP.IGE Performed By: #### I CPA2 #### [facility] [address] [place] [address] ELM,IGE,IC 0.11 KU/L Normal <0.35 [facility] Comment on above: Result Comment: SEE IMMUNOCAP INTERP.IGE Performed By: #### I CPA2 #### [facility] [address] [place] [id number] AZERI PLANTAIN,IGE,IC <0.10 Normal <0.35 [facility] Comment on above: Result Comment: SEE IMMUNOCAP INTERP.IGE Performed By: #### I CPA2 #### [facility] [address] [place] [address] GRASS,BERMUDA,IGE, IC <0.10 Normal <0.35 [facility] Comment on above: Result Comment: SEE IMMUNOCAP INTERP.IGE Performed By: #### I CPA2 #### [facility] [address] [place] [id number] GRASS,ZBIGNIEW,IGE, IC <0.10 Normal <0.35 [facility] Comment on above: Result Comment: SEE IMMUNOCAP INTERP.IGE Performed By: #### I CPA2 #### [facility] [address] [place] [address] GRASS,[place] BLUE,IGE,IC 0.71 KU/L Abnormal <0.35 [facility] Comment on above: Result Comment: SEE IMMUNOCAP INTERP.IGE Performed By: #### I CPA2 #### [facility] [address] [place] [address] GRASS,TIN,IGE,IC 0.70 KU/L Abnormal <0.35 [facility] Comment on above: Result Comment: SEE IMMUNOCAP INTERP.IGE Performed By: #### I CPA2 #### [facility] [address] [place] [address] IMMUNOCAP IGE 238.0 KU/L High 0.0 - 214.0 [facility] Comment on above: Result Comment: Note : Omalizumab (Xolair, GeneRoo[employer]com; humanized IgG1 antihuman IgE Fc) treatment does not significantly interfere with the accuracy of total IgE on the ImmunoCAP (Immune System Therapeutics) platform. J Allergy Clin Immunol 2006;117:759-66). Allergens, parasitic diseases, smoking, and alcohol consumption have been reported to increase levels of total IgE in serum. Performed By: #### I CPA2 #### [facility] [address] [place] [address] LAMBS QUARTERS,IGE,IC 0.11 KU/L Normal <0.35 [facility] Comment on above: Result Comment: SEE IMMUNOCAP INTERP.IGE Performed By: #### I CPA2 #### [facility] [address] [place] [address] MULBERRY, WHITE, IGE,IC <0.10 Normal <0.35 [facility] Comment on above: Result Comment: SEE IMMUNOCAP INTERP.IGE Performed By: #### I CPA2 #### [facility] [address] [place] [address] OAK,IGE,IC <0.10 Normal <0.35 [facility] Comment on above: Result Comment: SEE IMMUNOCAP INTERP.IGE Performed By: #### I CPA2 #### [facility] [address] [place] [address] PECAN HICKORY,IGE,IC 0.17 KU/L Normal <0.35 [facility] Comment on above: Result Comment: SEE IMMUNOCAP INTERP.IGE Performed By: #### I CPA2 #### [facility] [address] [place] [address] PENICILLIUM,IGE,IC <0.10 Normal <0.35 [facility] Comment on above: Result Comment: SEE IMMUNOCAP INTERP.IGE Performed By: #### I CPA2 #### [facility] [address] [place] [address] PIGWEED,IGE,IC 0.17 KU/L Normal <0.35 [facility] Comment on above: Result Comment: SEE IMMUNOCAP INTERP.IGE Performed By: #### I CPA2 #### [facility] [address] [place] [address] RAGWEED,SHORT,IGE, IC 0.88 KU/L Abnormal <0.35 [facility] Comment on above: Result Comment: SEE IMMUNOCAP INTERP.IGE Performed By: #### I CPA2 #### [facility] [address] [place] [id number] FINNISH THISTLE,IGE,IC 0.44 KU/L Abnormal <0.35 [facility] Comment on above: Result Comment: SEE IMMUNOCAP INTERP.IGE Performed By: #### I CPA2 #### [facility] [address] [place] [id number] SHEEP SORREL,IGE,IC <0.10 Normal <0.35 [facility] Comment on above: Result Comment: SEE IMMUNOCAP INTERP.IGE Performed By: #### I CPA2 #### [facility] [address] [place] [address] SYCAMORE,MAPLE LEAF IGE,IC 0.12 KU/L Normal <0.35 [facility] Comment on above: Result Comment: SEE IMMUNOCAP INTERP.IGE Performed By: #### I CPA2 #### [facility] [address] [place] [id number] WALNUT TREE,IGE,IC 0.13 KU/L Normal <0.35 [facility] Comment on above: Result Comment: SEE IMMUNOCAP INTERP.IGE Performed By: #### I CPA2 #### [facility] [address] [place] [address] Laboratory - Allergyon 12-12 A. alternata IgE Qn (S) 4.04 {KU/L} Abnormal <0.35 [facility] [address] Work Phone: Comment on above: SEE IMMUNOCAP INTERP .IGE A. fumigatus IgE Qn (S) 0.30 {KU/L} <0.35 [facility] [address] Work Phone: Comment on above: SEE IMMUNOCAP INTERP .IGE Lao house dust mite IgE Qn (S) <0.10 <0.35 [facility] [address] Work Phone: Comment on above: SEE IMMUNOCAP INTERP .IGE Lao Jackson IgE Qn (S) 0.12 {KU/L} <0.35 [facility] [address] Work Phone: Comment on above: SEE IMMUNOCAP INTERP .IGE B[place] grass IgE Qn (S) <0.10 <0.35 [facility] B Work Phone: Comment on above: SEE IMMUNOCAP INTERP .IGE Boxelder IgE Qn (S) 0.56 {KU/L} Abnormal <0.35 [facility] B Work Phone: Comment on above: SEE IMMUNOCAP INTERP .IGE C. herbarum IgE Qn (S) 0.38 {KU/L} Abnormal <0.35 [facility] [address] Work Phone: Comment on above: SEE IMMUNOCAP INTERP .IGE [place] IgE Qn (S) 0.13 {KU/L} <0.35 [facility] [address] Work Phone: Comment on above: SEE IMMUNOCAP INTERP .IGE Cat dander IgE Qn (S) 1.97 {KU/L} Abnormal <0.35 [facility] [address] Work Phone: Comment on above: SEE IMMUNOCAP INTERP .IGE Cockroach IgE Qn (S) <0.10 <0.35 [facility] Work Phone: Comment on above: SEE IMMUNOCAP INTERP .IGE Common Pigweed IgE Qn (S) 0.17 {KU/L} <0.35 [facility]-FYZR-[place]z [place] [address] Work Phone: Comment on above: SEE IMMUNOCAP INTERP .IGE Dawn IgE Qn (S) <0.10 <0.35 [facility] [address] Work Phone: Comment on above: SEE IMMUNOCAP INTERP .IGE Dog dander IgE Qn (S) 3.91 {KU/L} Abnormal <0.35 [facility] [address] Work Phone: Comment on above: SEE IMMUNOCAP INTERP .IGE Mongolian plantain IgE Qn (S) <0.10 <0.35 PC-ZYTJ-Gvcj [facility] [place] B Work Phone: Comment on above: SEE IMMUNOCAP INTERP .IGE house dust mite IgE Qn (S) <0.10 <0.35 VZ-XQNP-Idme [facility] [place] B Work Phone: Comment on above: SEE IMMUNOCAP INTERP .IGE Goosefoot IgE Qn (S) 0.11 {KU/L} <0.35 DC-GXFG-Vubx [facility] [place] [address] Work Phone: Comment on above: SEE IMMUNOCAP INTERP .IGE Zbigniew grass IgE Qn (S) <0.10 <0.35 [facility] B Work Phone: Comment on above: SEE IMMUNOCAP INTERP .IGE [place] blue grass IgE Qn (S) 0.71 {KU/L} Abnormal <0.35 GG-GJAC-Zfyv y [place] [address] Work Phone: Comment on above: SEE IMMUNOCAP INTERP .IGE Mountain Juniper IgE Qn (S) 0.16 {KU/L} <0.35 SS-ZCKN-Pkcu y [place] [address] Work Phone: Comment on above: SEE IMMUNOCAP INTERP .IGE P. notatum IgE Qn (S) <0.10 <0.35 [facility] [address] Work Phone: Comment on above: SEE IMMUNOCAP INTERP .IGE Pecan or [place] Tree IgE Qn (S) 0.17 {KU/L} <0.35 [facility] [address] Work Phone: Comment on above: SEE IMMUNOCAP INTERP .IGE Saltwort IgE Qn (S) 0.44 {KU/L} Abnormal <0.35 [facility] [address] Work Phone: Comment on above: SEE IMMUNOCAP INTERP .IGE Sheep Sparkill IgE Qn (S) <0.10 <0.35 [facility] [address] Work Phone: Comment on above: SEE IMMUNOCAP INTERP .IGE Silver Birch IgE Qn (S) <0.10 <0.35 [place] [address] Work Phone: Comment on above: SEE IMMUNOCAP INTERP .IGE Reji IgG Qn (S) 0.70 {KU/L} Abnormal <0.[address] Work Phone: Comment on above: SEE IMMUNOCAP INTERP .IGE Total IgE RAST Qn (S) 238.0 {KU/L} above high threshold See Below [facility] [address] Work Phone: Comment on above: Reference Range: 0.0 - 214.0 Note: Omalizumab (Xolair, GenentTres Amigas; humanized IgG1 antihuman IgE Fc) treatment does not significantly interfere with the accuracy of total IgE on the ImmunoCAP (Immune System Therapeutics) platform. J Allergy Clin Immunol 2006;117:759-66). Allergens, parasitic diseases, smoking, and alcohol consumption have been reported to increase levels of total IgE in serum. White Jose C IgE Qn (S) 0.15 {KU/L} <0.35 [place] [address] Work Phone: Comment on above: SEE IMMUNOCAP INTERP .IGE White [place]m IgE Qn (S) 0.11 {KU/L} <0.35 [facility] Work Phone: Comment on above: SEE IMMUNOCAP INTERP .IGE White mulberry IgE Qn (S) <0.10 <0.35 [facility] Work Phone: Comment on above: SEE IMMUNOCAP INTERP .IGE Lamar IgE Qn (S) <0.10 <0.35 LE-BDJB-XjlcSebastian River [facility] Work Phone: Comment on above: SEE IMMUNOCAP INTERP .IGE No Panel Informationon 12-12 SEE COMMENT [facility]-VFQR[facility] Work Phone: Comment on above: REFERENCE RANGE (IMM UNOCAP) IGE KU/L CLASS INTERPRETATION < 0.10 0 BELOW DETECTION 0.10- 0.34 0/1 EQUIVOCAL 0.35- 0.69 1 LOW POSITIVE 0.70- 3.49 2 MODERATE POSITIVE 3.50- 17.49 3 HIGH FPVULXUW25.50- 49 4 VERY HIGH FNDRRLMA30 - 99 5 VERY HIGH POSITIVE >100 6 VERY HIGH POSITIVE 0.88 {KU/L} Abnormal <0.35 [facility] Work Phone: Comment on above: SEE IMMUNOCAP INTERP .IGE Office Visit (Allergy/Immuno logy)on 12-12-2021 Follow-up visit Diagnoses/Problems Assessed Allergies (995.3) (T78.40XA) Itching (698.9) (L29.9) SOB (shortness of breath) on exertion (786.05) (R06.02) Orders Allergies Respiratory Allergy Profile Region 5, IC; Status:Active; Requested for:[id number]; SOB (shortness of breath) on exertion Start: [...] referred by PCP, Dr. Kory Ambriz, in [place], [place] History of Present IllnessPt here to discuss allergy symptoms. Patient has seen an layboy tender in the past, last tested in 2010. Patient states seasonal and environmental allergies. Patient t is on Zyrtec-D and Benadryl as needed. Takes Zyrtec D in the morning, last this a.m. She had a shot in September for her allergy which she thinks was a steroid. She did have her Pneumovax a couple months ago. Patient did see an layboy tender in early 2000. Was on shots 2-3 yrs. She felt it helped. Never diagnosed with asthma Smokes occasionally. She did smoke regular in the past. Uses daily albuterol. She is worried about dog allergy. She has one dog. Patient is retired as a nurse. She worked at [employer]. Moved into a new home a [...] TabletTAKE 1 TABLET DAILY. Zyrtec-D 5-120 MG PM68PCIX 1 TABLET TWICE DAILY NEEDED. Vitals Vital Signs Recorded: [id number] 10:13AM Tacmufhbgvi17.1 F, Temporal Heart Rate89 Reuqcjugaqb55 Dnvqqpyt157 Yfjcwnywy07 Height5 ft 8 in Tzlued905 lb BMI Bxahwsopru80.3 kg/m2 BSA Calculated1.92 Tobacco Usea) Yes Patient encouraged to stop using tobacco productsYes O2 Qdoylaxmmf04, RA Physical Exam Constitutional General appearance: Well [...] of bigg (more content not included)... Normal [facility] RESPIRATORY ALLERGY PROFILE, IGE,ICon 12-12-2021 IMMUNOCAP INTERP.IGE SEE COMMENT Normal [facility] Comment on above: Result Comment: REFE RENCE RANGE (IMMUNOCAP) IGE KU/L CLASS INTERPRETATION < 0.10 0 BELOW DETECTION 0.10- 0.34 0/1 EQUIVOCAL 0.35- 0.69 1 LOW POSITIVE 0.70- 3.49 2 MODERATE POSITIVE 3.50- 17.49 3 HIGH POSITIVE 17.50- 49 4 VERY HIGH POSITIVE 50 - 99 5 VERY HIGH POSITIVE >100 6 VERY HIGH POSITIVE Performed By: #### I CPA2 #### [facility] [address] [place] [address] Tobacco Screening.on 022 Tobacco use status CPHS a) Yes MG-MAMP-[facility] [address] Work Phone: Tobacco Screening. Yes MP-WSP C[facility] [facility] [address] Work Phone: MG MAMM SCREEN 3D DEREK CADon 09-30-2021 MG MAMM SCREEN 3D DEREK CAD Patient: ROBBIE KEMP Exam Date: 09/30/2021 : 1955 Gender:F Ordering : DR. YISSEL CARDOZO D.O. Admission #: [id number] Family : Order #: [id number] CLICK HERE TO VIEW EXAM RADIOLOGY REPORT [...] breast cancer at age 51. LOCATION: [facility] BREAST COMPOSITION: Heterogeneously dense,which may obscure [...] Lopez MD on 09/30/2021 at 12:05 Normal [facility] Ambulatory Clinical Summaryo n 08-10-2020 Ambulatory Clinical Summary {[id number]}CD:6143 68 Normal [facility] General Surgery Office/Clini c Noteon 08-10-2020 General [...] 08/10/2020 Family History Family history is negative [facility] Comment on above: Result Comment: Elec tronically Signed By: SANDRA AMARO, Jaden Anaya\yousuf\Date and Time Signed: 08/10/20 15:40 EDT Outside Colonoscopyon 2020 Outside Colonoscopy [id number]:127 Normal [facility] Lab Reportson 08-02-2020 Lab Reports [id number]#[id number]:127 Normal [facility] Provider Letter FTMCon 07-28 Provider Letter [facility], [facility] [place] [address] Re: ROBBIE KEMP Date of : 1955 [...] persist. Sincerely, Jaden Soliz MD General Surgery Normal [facility] Ambulatory Clinical Summaryo n 07-21-2020 Ambulatory Clinical Summary {[id number]}CD:6143 68 Normal [facility] Ambulatory Clinical Summary {[id number]}CD:6143 68 Normal [facility] Vital Signs Date Time Vital Sign Value Performing Clinician Facility 08-16-2023 13:43-0400 Body height 170.18 cm MD Kory Ambriz Work Phone: [facility] 08-16-2023 13:43-0400 Body mass index (BMI) [Ratio] 27.6 kg/m2 MD Kory Ambriz Work Phone: [facility] 08-16-2023 13:43-0400 Body weight 79.83 kg MD Kory Ambriz Work Phone: [facility] 08-16-2023 13:43-0400 Diastolic blood pressure 92 mm[Hg] MD Kory Ambriz Work Phone: [facility] 08-16-2023 13:43-0400 Heart rate 84 /min MD Kory Ambriz Work Phone: [facility] 08-16-2023 13:43-0400 SaO2% (BldA) [Mass fraction] 98 % MD Kory Ambriz Work Phone: [facility] 08-16-2023 13:43-0400 Systolic blood pressure 138 mm[Hg] MD Kory Ambriz Work Phone: [facility] 01-10-2022 13:39-0400 Body mass index (BMI) [Ratio] 26.3 kg/m2 Referring Provider Unknown RE-GHRB-Nrqgi [place] [address] Work Phone: 01-10-2022 13:39-0400 Body surface area Derived from formula 1.92 m2 Referring Provider Unknown UJ-LNBA-Hdwqs [place] [address] Work Phone: 01-10-2022 13:39-0400 Body temperature 98.1 [degF] Referring Provider Unknown EC-HHPY-Tqdwo [place] [address] Work Phone: 01-10-2022 13:39-0400 Body weight 78.47 kg Referring Provider Unknown XC-HSMF-Srzfm [place] [address] Work Phone: 01-10-2022 13:39-0400 Diastolic blood pressure 66 mm[Hg] Referring Provider Unknown LK-YQDY-Zuiow [place] [address] Work Phone: 01-10-2022 13:39-0400 Heart rate 88 /min Referring Provider Unknown QQ-MHKS-Aapvn [place] [address] Work Phone: 01-10-2022 13:39-0400 Respiratory rate 16 /min Referring Provider Unknown OK-ERIJ-Qlglz [place] [address] Work Phone: 01-10-2022 13:39-0400 SaO2% (BldA) [Mass fraction] 98 % Referring Provider Unknown NQ-WSPE-Plofl [place] [address] Work Phone: 01-10-2022 13:39-0400 Systolic blood pressure 128 mm[Hg] Referring Provider Unknown RL-IMAZ-Jltyp [place] [address] Work Phone: 12-12-2021 10:13-0400 Body height 172.72 cm Referring Provider Unknown QH-MHMJ-Icbom [place] [address] Work Phone: 12-12-2021 10:13-0400 Body mass index (BMI) [Ratio] 26.3 kg/m2 Referring Provider Unknown LX-KGIR-Ukcex [place] [address] Work Phone: 12-12-2021 10:13-0400 Body surface area Derived from formula 1.92 m2 Referring Provider Unknown RV-SYRZ-Kmovq [place] [address] Work Phone: 12-12-2021 10:13-0400 Body temperature 98.1 [degF] Referring Provider Unknown FE-GSXY-Gmhlh [place] [address] Work Phone: 12-12-2021 10:13-0400 Body weight 78.47 kg Referring Provider Unknown TY-CYIP-Ltxfs [place] [address] Work Phone: 12-12-2021 10:13-0400 Diastolic blood pressure 84 mm[Hg] Referring Provider Unknown BQ-RBOK-Gckhy [place] [address] Work Phone: 12-12-2021 10:13-0400 Heart rate 89 /min Referring Provider Unknown MZ-UOET-Guulb [place] [address] Work Phone: 12-12-2021 10:13-0400 Respiratory rate 17 /min Referring Provider Unknown YA-VNWD-Drckk [place] [address] Work Phone: 12-12-2021 10:13-0400 SaO2% (BldA) [Mass fraction] 99 % Referring Provider Unknown RM-WXAL-Csnic [place] [address] Work Phone: 12-12-2021 10:13-0400 Systolic blood pressure 144 mm[Hg] Referring Provider Unknown IR-YMSI-Unwon [place] [address] Work Phone: 01-24-2021 09:45-0400 Body height Mac Trevino Other [facility] Other 01-24-2021 09:45-0400 Body mass index (BMI) [Ratio] 23.57 kg/m2 Mac Trevino Other [facility] Other 01-24-2021 09:45-0400 Body weight 70.31 kg Mac Trevino Other [facility] Other 01-07-2021 10:30-0400 Body height Mac Trevino Other [facility] Other 01-07-2021 10:30-0400 Body mass index (BMI) [Ratio] 23.57 kg/m2 Mac Trevino Other [facility] Other 01-07-2021 10:30-0400 Body weight 70.31 kg Mac Trevino Other [facility] Other 01-07-2021 10:30-0400 Diastolic blood pressure 89 mm[Hg] Mac Trevino Other [facility] Other 01-07-2021 10:30-0400 Systolic blood pressure 117 mm[Hg] Mac Trevino Other [facility] Other Encounters Encounter Date Encounter Type Care Provider Facility Start: 10-09-2023 End: 10-09-2023 ambulatory ALLYSSA WENGERD Not Available Start: 10-04-2023 End: 10-04-2023 ambulatory ALLYSSA WENGERD Not Available Start: 10-04-2023 End: 10-04-2023 ambulatory YISSEL CARDOZO Not Available Start: 10-03-2023 End: 10-03-2023 ambulatory MD Kory Ambriz Work Phone: [facility] Work Phone: Start: 10-03-2023 End: 10-03-2023 Patient encounter procedure MD Kory Ambriz Work Phone: [facility] Work Phone: Start: 10-02-2023 End: 10-02-2023 ambulatory ALLYSSA WENGERD Not Available Start: 09-27-2023 End: 09-27-2023 ambulatory NATALIE L BECKHAM Not Available Start: 09-25-2023 End: 09-25-2023 ambulatory NATALIE L BECKHAM Not Available Start: 09-23-2023 End: 09-23-2023 ambulatory MARY Dee ARNEL Not Available Start: 09-20-2023 End: 09-20-2023 ambulatory NAATLIE L BECKHAM Not Available Start: 09-18-2023 End: 09-18-2023 ambulatory NATALIE L BECKHAM Not Available Start: 09-14-2023 End: 09-14-2023 ambulatory NATALIE L BECKHAM Not Available Start: 09-11-2023 End: 09-11-2023 ambulatory ALLYSSA WENGERD Not Available Start: 09-06-2023 End: 09-06-2023 ambulatory NATALIE L BECKHAM Not Available Start: 09-06-2023 Non-patient / Non-visit MD Willa Ambriz Work Phone: [facility] Work Phone: Start: 09-04-2023 End: 09-04-2023 Patient encounter procedure MD Kory Ambriz Work Phone: [facility] Work Phone: Start: 09-04-2023 End: 09-04-2023 ambulatory Sae Rodríguez Facility:[facility] Start: 09-04-2023 End: 09-04-2023 ambulatory NATALIE L BECKHAM Not Available Start: 08-28-2023 End: 08-28-2023 ambulatory NATALIE L BECKHAM Not Available Start: 08-16-2023 End: 08-16-2023 ambulatory MD Kory Ambriz Work Phone: [facility] Work Phone: Start: 08-16-2023 End: 08-16-2023 Patient encounter procedure MD Kory Ambriz Work Phone: [facility] Work Phone: Start: 08-15-2023 End: 08-15-2023 ambulatory NATALIE L BECKHAM Not Available Start: 08-15-2023 End: 08-15-2023 ambulatory MD Kory Ambriz Work Phone: [facility] Work Phone: Start: 08-15-2023 End: 08-15-2023 Patient encounter procedure MD Kory Ambriz Work Phone: [facility] Work Phone: Start: 08-13-2023 End: 08-13-2023 ambulatory ALLYSSA WENGERD Not Available Start: 08-10-2023 End: 08-10-2023 ambulatory ALLYSSA WENGERD Not Available Start: 08-06-2023 End: 08-06-2023 ambulatory ALLYSSA WENGERD Not Available Start: 08-03-2023 End: 08-03-2023 ambulatory NATALIE L BECKHAM Not Available Start: 08-01-2023 End: 08-01-2023 ambulatory MD Kory Ambriz Work Phone: [facility] Work Phone: Start: 08-01-2023 End: 08-01-2023 Patient encounter procedure MD Kory Ambriz Work Phone: [facility] Work Phone: Start: 08-01-2023 End: 08-01-2023 Patient encounter procedure MD Kory Ambriz Work Phone: [facility] Start: 08-01-2023 End: 08-01-2023 ambulatory MD Kory Ambriz Work Phone: [facility] Work Phone: Start: 07-27-2023 End: 07-27-2023 ambulatory ALLYSSA WENGERD Not Available Start: 07-25-2023 End: 07-25-2023 ambulatory NATALIE L BECKHAM Not Available Start: 07-23-2023 End: 07-23-2023 ambulatory ALLYSSA WENGERD Not Available Start: 07-20-2023 End: 07-20-2023 ambulatory NATALIE L BECKHAM Not Available Start: 07-16-2023 End: 07-16-2023 ambulatory ALLYSSA WENGERD Not Available Start: 07-13-2023 End: 07-13-2023 ambulatory NATALIE L BECKHAM Not Available Start: 07-11-2023 End: 07-11-2023 ambulatory ABENA MARY LOU Not Available Start: 07-09-2023 End: 07-09-2023 ambulatory ALLYSSA WENGERD Not Available Start: 07-06-2023 End: 07-06-2023 ambulatory NATALIE L BECKHAM Not Available Start: 07-04-2023 End: 07-04-2023 ambulatory NATALIE L BECKHAM Not Available Start: 07-02-2023 End: 07-02-2023 ambulatory ALLYSSA WENGERD Not Available Start: 06-29-2023 End: 06-29-2023 ambulatory NATALIE L BECKHAM Not Available Start: 06-27-2023 End: 06-27-2023 ambulatory NATALIE L BECKHAM Not Available Start: 06-25-2023 End: 06-25-2023 ambulatory ALLYSSA WENGERD Not Available Start: 06-22-2023 End: 06-22-2023 ambulatory ALLYSSA WENGERD Not Available Start: 06-20-2023 End: 06-20-2023 ambulatory NATALIE L BECKHAM Not Available Start: 06-18-2023 End: 06-18-2023 ambulatory ALLYSSA WENGERD Not Available Start: 06-15-2023 End: 06-15-2023 ambulatory NATALIE L BECKHAM Not Available Start: 03-29-2023 End: 03-29-2023 ambulatory [facility] Start: 03-29-2023 End: 03-29-2023 Encounter for other preprocedural examination [facility] Start: 02-26-2023 End: 02-26-2023 ambulatory HUSSAIN MEDELLIN [facility] Start: 07-10-2022 End: 07-11-[address] KORY AMBRIZ . Facility:[facility] Start: 06-27-2022 End: 06-28-[address] KORY AMBRIZ . Facility:[facility] Start: 05-23-2022 End: 05-24-[address] KORY AMBRIZ . Facility:[facility] Start: 01-10-2022 Office outpatient vi sit 15 minutes Referring Provider Unknown PO-TJVT-Cjmar [facility] [address] Work Phone: Start: 01-10-2022 ambulatory PCP UNKNOWN Facility:[id number] Start: 12-12-2021 Office outpatient ne w 45 minutes Referring Provider Unknown IN-RJQN-Qnxxm [place] [address] Work Phone: Start: 12-12-2021 ambulatory PCP UNKNOWN Facility:[id number] Start: 11-15-2021 End: 11-16-2021 ambulatory ODILIA MARTIN Facility:[facility] Start: 11-03-2021 End: 11-03-2021 Discharged Recurring MD Kory Ambriz Work Phone: [facility] [place] Start: 10-18-2021 End: 10-19-2021 ambulatory ODILIA MARTIN Facility:[facility] Start: 09-30-2021 End: 10-01-2021 ambulatory YISSEL CARDOZO Facility:[facility] Start: 08-03-2021 End: 08-03-2021 ambulatory Mac Trevino Other [facility] Other Start: 08-03-2021 Telephone encounter [facility] Start: 07-06-2021 End: 07-06-2021 ambulatory Mac Trevino Other [facility] Other Start: 07-06-2021 Office outpatient vi sit 15 minutes Mac Trevino [facility] Start: 03-04-2021 End: 03-04-2021 ambulatory Mac Trevino Other [facility] Other Start: 03-04-2021 Telephone encounter Mac PORTER G [facility] Start: 02-21-2021 Postop follow up vis it related to original px Mac Frank [facility] Start: 02-07-2021 Telephone encounter Mac PORTER G [facility] Start: 01-24-2021 Postop follow up vis it related to original px Mac Frank [facility] Start: 01-07-2021 End: 01-07-2021 ambulatory Mac Trevino Other [facility] Other Start: 01-07-2021 Encounter for other preprocedural examination Mac Trevino [facility] Start: 01-07-2021 Office outpatient vi sit 25 minutes Mac Trevino [facility] Start: 10-18-2017 Patient encounter UNABLE TO VALIDATE [facility] Start: 08-04-2017 End: 08-04-2017 Patient encounter [facility] Facility:[facility] Procedure Procedure Detail Performing Clinician Start: 10-03-2023 Plain X-ray of right hand MD Kory Ambriz Work Phone: Start: 08-01-2023 Plain X-ray of left hip MD Kory Ambriz Work Phone: Appendectomy Referring Provi virgen Unknown Cataract surgery Referring P rovider Unknown Excisional biopsy of breast Referring Provider Unknown Hysterectomy vaginal Referri ng Provider Unknown Operation on bladder Referri ng Provider Unknown Repair of tendon Referring P rovider Unknown Total replacement of hip Ref erring Provider Unknown Plan of Treatment Date Care Activity Detail Author Start: 10-03-2023 Plain X-ray of right hand XR hand RT min 3V* [facility] Start: 10-03-2023 XR Hand - right GE 3 Views [facility] Start: 08-01-2023 Plain X-ray of left hip XR hip LT min 2V(w/wo pelvis)* [facility] Start: 08-01-2023 XR Hip - left 2 Views F [facility] Start: 07-11-2022 FUV, Provider: La Nena Miugel, Status: Pen, Time: 2:10 PM FUV, Provider: La Nena Miguel, Status: Pen, Time: 2:10 PM RG-IIVV-Qbvge [place] [address] Work Phone: Immunizations Immunization Date Immunization Notes Care Provider Fa jeannine 08-27-2020 Do not use COVID-19 Pfizer 2 dose Mac Frank Other [facility] 08-06-2020 Do not use COVID-19 Pfizer 2 dose Mac Frank Other [facility] Payers Date Payer Category Payer Self-pay [id number] 2020 Unknown [id number] 2. [id number] 2020 Unknown [id number] 2.16.840 .1.894943.19 1955 Unknown [id number] 2.16.840.1.219136.3.579.2.356 1955 Unknown [id number] 2.16.840.1.434082.3.579.2.356 1956 Unknown [id number] 2.16.840.1.138955.3.579.2.356 1956 Unknown [id number] 2.16.840.1.521622.3.579.2.593 1956 Unknown [id number] 2.16.840.1.340730.3.579.2.593 1956 Unknown [id number] 2.16.840.1.006441.3.579.2.593 1956 Unknown [id number] 2.16.840.1.165701.3.579.2.593 1956 Unknown [id number] 2.16.840.1.959318.3.579.2.593 1956 Unknown [id number] 2.16.840.1.984538.3.579.2.593 1956 Unknown [id number] 2.16.840.1.682299.3.579.2.1259 1956 Unknown [id number] 2.16.840.1.584650.3.579.2.1259 1956 Unknown [id number] 2.16.840.1.400149.3.579.2.1259 1956 Unknown [id number] 2.16.840.1.348942.3.579.2.1259 1956 Unknown [id number] 2.16.840.1.443299.3.579.2.1259 1956 Unknown [id number] 2.16.840.1.039234.3.579.2.1259 1956 Unknown [id number] 2.16.840.1.693052.3.579.2.1259 1956 Unknown [id number] 2.16.840.1.250990.3.579.2.1259 1956 Unknown [id number] 2.16.840.1.188882.3.579.2.1259 1956 Unknown [id number] 2.16.840.1.181551.3.579.2.125 1956 Unknown [id number] 2.16.840.1.506068.3.579.2.1259 1956 Unknown [id number] 2.16.840.1.605827.3.579.2.1259 1956 Unknown [id number] 2.16.840.1.762875.3.579.2.1259 1956 Unknown [id number] 2.16.840.1.454715.3.579.2.1258 1956 Unknown [id number] 2.16.840.1.147313.3.579.2.1258 1956 Unknown [id number] 2.16.840.1.330942.3.579.2.1258 1956 Unknown [id number] 2.16.840.1.622889.3.579.2.1258 1956 Unknown [id number] 2.16.840.1.010756.3.579.2.1258 1956 Unknown [id number] 2.16.840.1.405604.3.579.2.1258 1956 Unknown [id number] 2.16.840.1.302567.3.579.2.1258 1956 Unknown [id number] 2.16.840.1.031046.3.579.2.1258 1956 Unknown [id number] 2.16.840.1.446586.3.579.2.1258 1956 Unknown [id number] 2.16.840.1.746623.3.579.2.1258 1956 Unknown [id number] 2.16.840.1.609500.3.579.2.1258 1956 Unknown [id number] 2.16.840.1.356722.3.579.2.1258 1956 Unknown [id number] 2.16.840.1.208782.3.579.2.1258 1956 Unknown [id number] 2.16.840.1.586614.3.579.2.1258 1956 Unknown [id number] 2.16.840.1.753212.3.579.2.1258 1956 Unknown [id number] 2.16.840.1.843406.3.579.2.1259 1956 Unknown [id number] 2.16.840.1.336036.3.579.2.9 1956 Unknown [id number] 2.16.840.1.562651.3.579.2.9 1956 Unknown [id number] 2.16.840.1.637079.3.579.2.125 1956 Unknown [id number] 2.16.840.1.878371.3.579.2.1258 1956 Unknown [id number] 2.16.840.1.927025.3.579.2.1258 1956 Unknown [id number] 2.16.840.1.920930.3.579.2.1258 1956 Unknown [id number] 2.16.840.1.066840.3.579.2.1259 1955 Unknown [id number] 2.16.840.1.254083.3.579.2.1259 Medicare Medicare Medicare [id number] Unknown Unknown 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[place] [id number] 73 Unknown [id number] 2.16.840.1.552167.3.579.2.531 Unknown [id number] 2.16.840.1.410347.3.579.2.531 Unknown [id number] 2.16.840.1.194600.3.579.2.531 Social History Date Type Detail Facility Unknown if ever smoked [facility] Other Sex Assigned At Sex Assigned At Bir th [facility] Other Cigarette smoker Cigarette smoker [facility] Work Phone: Start: 01-25-2021 End: 05-16-2023 Tobacco smoking status NHIS Smoker (finding) [facility] Start: 1955 Sex Assigned At Female F [facility] Medical Equipment Procedure Code Equipment Code Equipment Origin al Text Equipment Identifier Dates 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 Coated hip femur prosthesis, modular [id number] FDA Start: 01-11-2021 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 Acetabular shell ()[id number] FDA Start: 01-11-2021 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 Non-constrained polyethylene acetabular liner ()[id number] FDA Start: 01-11-2021 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 Ceramic femoral head prosthesis ()[id number] FDA Start: 01-11-2021 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 Orthopaedic bone screw, non-bioabsorbable, sterile ()[id number] FDA Start: 01-11-2021 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 Orthopaedic bone screw, non-bioabsorbable, sterile ()[id number] FDA Start: 01-11-2021 Clinical Notes 07-21-2020 to 03-29-2023 Note Date & Type Note Facility 03-29-2023 Note [facility] Clinic Note Chief Complaint: Patient here [...] Hyperlipidemia, Hypertension, Hypothyroidism, and RA (rheumatoid arthritis) ([facility]). Surgical History He has a past surgical [...] and blood pressu (more content not included)... [facility] 02-26-2023 Note 176#New patient here to [...] All other systems reviewed and are negative. [facility] 02-26-2023 Note Cardiovascular Medic ine [facility] SUBJECTIVE No chief complaint on file. [...] disease) Hyperlipidemia Hypertension Hypothyroidism RA (rheumatoid arthritis) ([facility]) Past Surgical History: Procedure Laterality Date BREAST [...] repeat labs thro (more content not included)... [facility] 12-13-2021 History of Present illness Narrative 66 yo with history of allergy and asthma. Symptoms are improved on Advair 250 BID with rare albuterol use. She has grass, tree and ragweed as well as pet allergy on immunocap 12/13/21. [facility] ???L Work Phone: 11-15-2021 Note PROCEDURE: XR ANKLE [...] authenticated by: ELVA MELISSA Date: 2021-11-15 18:44 [facility] 10-19-2021 Note PROCEDURE: XR FOOT R [...] authenticated by: SAE LOPEZ Date: 2021-10-19 07:23 [facility] 09-21-2021 History of Present illness Narrative Pt here to discuss allergy symptoms. Patient has seen an layboy tender in the past, last tested in 2010. Patient states seasonal and environmental allergies. Patient t is on Zyrtec-D and Benadryl as needed. Takes Zyrtec D in the morning, last this a.m.She had a shot in September for her allergy which she thinks was a steroid.She did have her Pneumovax a couple months ago.Patient did see an layboy tender in early 2000. Was on shots 2-3 yrs. She felt it helped.Never diagnosed with asthmaSmokes occasionally. She did smoke regular in the past.Uses daily albuterol.She is worried about dog allergy. She has one dog.Patient is retired as a nurse.She worked at [employer].Moved into a new home a few years ago. Had Covid in 2019, and still feels she has some residula taste and smell issues. [id number] Work Phone: 07-06-2021 Evaluation note Encounter Date Diagnosis Assessment Notes Jun, History of arthroplasty of left hip (ICD-10 - Z98.890) Robbie presents today 6 months s/p left total [...] tolerated. Call with any questions or concerns. [facility] Other 11-01-2021 Evaluation note* Encounter Date Diagnosis [...] if she develops pain or further deformity [facility] Other 10-18-2021 Evaluation note* Encounter Date Diagnosis Assessment Notes Treatment Notes Treatment Clinical Notes Jan, Primary osteoarthritis of left hip (ICD-10 - M16.12) [facility] Other 10-04-2021 Evaluation note* Encounter Date Diagnosis [...] to call with any questions or concerns. [facility] Other 09-17-2021 Evaluation note* Encounter Date Diagnosis [...] done prior to surgical procedure to limit marcy-operative risks. I have discussed the planned procedure being a total hip arthroplasty via posterior approach, how and who performs the procedure, as well as the personnel involved. Cardiovascular, pulmonary, and other life-threatening episodes can occur during surgery although there is a low risk of these happening. Surgical risks including bleeding, neurovascular injury, wound closure problems and infection were discussed. Marcy-operative risks including infection, bleeding, wound healing problems, [...] was discussed. I have advised against the mcc use of narcotic pain medication. I have [...] with tobacco use. Tobacco cessation program at [facility] has been recommended and offered. This discussion was limited to 5 minutes. [facility] Other 03-31-[address] Ambriz referral for ongoing abd pain had liver,pancreas & GB US all were ok still having pain diarrhea is off and on had colonoscopy & EGD at [facility] aprox 6 years ago History of [...] 800 mg Tab, 80 (more content not included)...[facility]:Result Comment: Electronically Signed By: SANDRA AMARO, Jaden Palmer\Date and Time Signed: 07/21/20 15:25 [id number] NoteUpper Endoscopy, Adult Upper endoscopy is a [...] including vitamins, herbs, eye drops, creams, and yyxv-[id number] medicines. ? Any problems you or family [...] tells you to take them. ? Taking meph-vtl-svagqmd medicines, vitamins, herbs, and supplements. General instructions [...] 04/06/2001 Document Revised: 10/03/19 (more content not included)...[facility] Center[facility] noteNo InformationNort [employer] Other Evaluation noteNo assessment information available [facility] Work Phone: Evaluation note* Diagnosis Onset Date Resolution Status History of total left hip arthroplasty acute Osteoarthritis of left hip a cute Trochanteric bursitis, left hip acute [facility] Work Phone: Evaluation note* Diagnosis Onset Date Resolution Status History of total left hip arthroplasty acute Osteoarthritis of left hip a cute Trochanteric bursitis, left hip acute History of total left hip arthroplasty acute Osteoarthritis of left hip a cute Trochanteric bursitis, left hip acute [facility] Work Phone: Evaluation note* Diagnosis Onset Date Resolution Status History of total left hip arthroplasty acute Osteoarthritis of left hip a cute Trochanteric bursitis, left hip acute History of total left hip arthroplasty acute Osteoarthritis of left hip a cute Trochanteric bursitis, left hip acute Generalized anxiety disorder acute GERD (gastroesophageal reflux disease) acute Hypertension acute Hypothyroid acute Sleep apnea acute [facility] Work Phone: Evaluation note* Diagnosis Onset Date Resolution Status History of total left hip arthroplasty acute Osteoarthritis of left hip a cute Trochanteric bursitis, left hip acute History of total left hip arthroplasty acute Osteoarthritis of left hip a cute Trochanteric bursitis, left hip acute Generalized anxiety disorder acute GERD (gastroesophageal reflux disease) acute Hypertension acute Hypothyroid acute Sleep apnea acute Finger mass, right acute History of total left hip arthroplasty acute Osteoarthritis of left hip a cute Primary osteoarthritis, right hand acute Trochanteric bursitis, left hip acute [facility] Work Phone: History general Narrative - Reported* Type Description Date Medical History htn Medical History high blood pressure Medical History asthma Medical History Hypothyroidism Medical History Arthritis Surgical History HYSTERECTOMY Surgical History APENDIX Surgical History colonoscopy Surgical History right post tibal repair Surgical History pelvic organ prolapse repair Surgical History right knee biopsy Surgical History breast biopsy Surgical History left total hip arthroplasty 12/23 05/13 [facility] Other History general Narrative - Reported* Type [...] 12/23 05/13 Surgical History Right Foot/Ankle 2014 [facility] Other Summary Purpose Family History No Family [...] Unknown sister History of hip replacement Unknown father Unknown Not Specified Unknown Advance Directives No Advanced Directives Records Found Advance Directive Response Recorded Date/ Time Advance Directives No December 01, 2020 10:50am Advance Directive Response Recorded Date/ Time Advance Directives No May 16, 2023 7:15pm Chief Complaint New patient here to discuss allergies, referred by PCP, Dr. Kory Ambriz, in 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 Chief Complaint Z96.642 - Presence o f left artificial hip joint op sp lt hip pain Reason for Visit History of total lef t hip arthroplasty Osteoarthritis of left hip Trochanteric bursitis, left hip Chief Complaint Z96.642 - Presence o f left artificial hip joint op sp lt hip pain OP SP LT HIP PAIN Reason for Visit History of total lef t hip arthroplasty Osteoarthritis of left hip Trochanteric bursitis, left hip History of total left hip arthroplasty Osteoarthritis of left hip Trochanteric bursitis, left hip Chief Complaint Z96.642 - Presence o f left artificial hip joint op sp lt hip pain OP SP LT HIP PAIN apnea Reason for Visit History of total lef t hip arthroplasty Osteoarthritis of left hip Trochanteric bursitis, left hip History of total left hip arthroplasty Osteoarthritis of left hip Trochanteric bursitis, left hip Generalized anxiety disorder GERD (gastroesophageal reflux disease) Hypertension Hypothyroid Sleep apnea Chief Complaint Z96.642 - Presence o f left artificial hip joint op sp lt hip pain OP SP LT HIP PAIN apnea Unspecified sleep apnea APNEA 6-8 WEEKS R22.31 - Localized swelling, mass and lump, right Reason for Visit History of total lef t hip arthroplasty Osteoarthritis of left hip Trochanteric bursitis, left hip History of total left hip arthroplasty Osteoarthritis of left hip Trochanteric bursitis, left hip Generalized anxiety disorder GERD (gastroesophageal reflux disease) Hypertension Hypothyroid Sleep apnea Finger mass, right History of total left hip arthroplasty Osteoarthritis of left hip Primary osteoarthritis, right hand Trochanteric bursitis, left hip Additional Source Comments INFORMATION SOURCE (unrecogn ized section and content) DATE CREATED AUTHOR 11/03/2017 [employer] [facility] DATE CREATED AUTHOR AUTHOR'S ORGANIZ ATION 08/11/2020 [facility] DATE CREATED AUTHOR AUTHOR'S ORGANIZ ATION 01/22/2022 [facility] DATE CREATED AUTHOR AUTHOR'S ORGANIZ ATION 01/22/2022 [employer] DATE CREATED AUTHOR AUTHOR'S ORGANIZ ATION 07/16/2022 [facility] DATE CREATED AUTHOR AUTHOR'S ORGANIZ ATION 03/31/2023 [facility] DATE CREATED AUTHOR AUTHOR'S ORGANIZ ATION 10/07/2023 [facility] DATE CREATED AUTHOR AUTHOR'S ORGANIZ ATION 10/11/2023 [facility] EPIC REASON FOR VISIT (unrecogniz ed section and content) Recheck Left HipmedicationRe check Left HipNo InformationRecheck Left HipRequestingH & P Left Total Hip Care Teams (unrecognized sec tion and content) Team Status: Active Member Role Status Dates Kory Ambriz MD Primary Care Provider Active Team Status: Inactive Member Role Status Dates Kory Ambriz MD Primary Care Provider Active Start: August 01, 2023 End: August 01, 2023 Mac Trevino DO Attending Provider Active S tart: August 01, 2023 End: August 01, 2023 Team Status: Inactive Member Role Status Dates Kory Ambriz MD Primary Care Provider Active Odilia Martin PA-C Attending Provider Active Team Status: Active Member Role Status Dates Kory Ambriz MD Primary Care Provider Active Start: August 01, 2023 Mac Trevino DO Attending Provider Active S tart: August 01, 2023 Team Status: Inactive Member Role Status Dates Kory Ambriz MD Primary Care Provider Active Start: August 15, 2023 End: August 15, 2023 Mac Trevino DO Attending Provider Active S tart: August 15, 2023 End: August 15, 2023 Team Status: Inactive Member Role Status Catrina Ambriz MD Primary Care Provider Active Start: August 16, 2023 End: August 16, 2023 Sae Rodríguez MD Attending Provider Active S tart: August 16, 2023 End: August 16, 2023 Team Status: Inactive Member Role Status Catrina Ambriz MD Primary Care Provider Active Start: September 04, 2023 End: September 04, 2023 Sae Rodríguez MD Attending Provider Active S tart: September 04, 2023 End: September 04, 2023 Team Status: Active Member Role Status Catrina Ambriz MD Primary Care Provider Active Start: September 06, 2023 Sae Rodríguez MD Attending Provider, Other Provide r Active Start: September 06, 2023 Team Status: Inactive Member Role Status Catrina Ambriz MD Primary Care Provider Active Start: October 03, 2023 End: October 03, 2023 Mac Trevino DO Attending Provider Active S tart: October 03, 2023 End: October 03, 2023 Team Status: Active Member Role Status Catrina Ambriz MD Primary Care Provider Active Start: October 03, 2023 Mac Trevino DO Attending Provider Active S tart: October 03, 2023 Goals (unrecognized section and content) Goals may [...] BE BASED ON THE PRIMARY CLINICAL RECORDS. [facility]. provides no warranty or guarantee of the accuracy or completeness of information in this document.
== END 2023-10-12 08:21 | disposition home or self-care (01) ==
LOC: MAMMO 08:20
PROVIDERS: PCP Family Medicine; Visit Provider Family Medicine
DX: Z12.31 Encounter for screening mammogram for malignant neoplasm of breast (principal); Z80.3 Family history of malignant neoplasm of breast
CPT/HCPCS: 77063; 77067

== ENCOUNTER 2023-10-30 10:46 | Outpatient (OUT) | payer OTHER, SELFPAY ==
--- NOTE | 2023-10-30 | XR_ITS ---
[address] [address] Patient Name: ROBBIE KEMP MRN: [id number] date: 1955 Sex: F Assigned Patient Location: Current Patient Location: Accession/Order Number: [id number] Exam Date: 10/30/2023 10:55 Report Date: 10/31/2023 07:22 At the request of: MADELINE KOWALSKI Procedure: XR foot RT min 3V PROCEDURE: XR foot RT min 3V COMPARISON: 06/20/2023 HISTORY: RIGHT FOOT PAIN FINDINGS: BONES:Stable triple arthrodesis. Posterior calcaneal osteotomy transfixed with 2 screws. Anterior calcaneal and medial cuneiform osteotomy with wedged spacer placement. Hallux valgus. Moderate degenerative changes first metatarsal phalangeal joint SOFT TISSUES:Negative. No visible soft tissue swelling. EFFUSION:None visible. OTHER: Negative. XR/XR foot RT min 3V IMPRESSION: Stable degenerative changes and remote triple arthrodesis Electronically authenticated by: SAE LOPEZ Date: 10/31/2023 07:22
== END 2023-10-30 10:47 | disposition home or self-care (01) ==
LOC: EC 10:46
PROVIDERS: PCP Family Medicine; Visit Provider Podiatrist Foot & Ankle Surgery
DX: M25.571 Pain in right ankle and joints of right foot (principal); Z98.1 Arthrodesis status; M20.11 Hallux valgus (acquired), right foot
CPT/HCPCS: 73630

== ENCOUNTER 2024-03-10 14:52 | Outpatient (OUT) | payer OTHER, SELFPAY ==
--- NOTE | 2024-03-10 14:58 | CA_ITS ---
Patient Name: ROBBIE KEMP MR#: [id number] : 1955 Exam Date: 03/10/2024 Ordering Doctor: DR LARS KELLY M.D. ECHOCARDIOGRAM REPORT PROCEDURE: CA ECHO DOPPLER COMPLETE INDICATIONS: Valvular regurgitation COMPARISON: None. DESCRIPTION: COMPLETE ECHOCARDIOGRAM Real-time transthoracic echocardiography with 2D, M-mode, spectral and color flow Doppler performed. QUALITY: Technical quality was good. LEFT VENTRICLE: Normal chamber size. Mildly thickened left ventricle garcia. Global left ventricular systolic function is normal. Calculated left ventricular ejection fraction is 67%. No regional wall motion abnormalities. LV EF: DIASTOLIC: Grade I diastolic dysfunction. ATRIAL SEPTUM: LEFT ATRIUM: Normal chamber size. RIGHT ATRIUM: Mild dilatation. RIGHT VENTRICLE: Mild dilatation. Normal right ventricular systolic function. TRICUSPID VALVE: Normal mobility and thickness. No stenosis with moderate regurgitation. Mild pulmonary hypertension. RVSP 40mmHg MITRAL VALVE: Normal mobility and thickness. No evidence of mitral valve stenosis. Mild mitral annular calcification. No mitral regurgitation. AORTIC VALVE: Normal trileaflet appearance. No visible sclerosis. Normal leaflet mobility. No evidence of aortic valve stenosis. Mild aortic regurgitation. AORTIC ROOT: Normal diameter and appearance. PULMONIC VALVE: Normal thickness and mobility. No stenosis. Trivial regurgitation. PERICARDIUM: No evidence of pericardial effusion. IVC: Collapes with inspirations. Normal size. PLEURA: CONCLUSION: Normal left ventricle chamber size. Mildly thickened left ventricle garcia. Global left ventricular systolic function is normal. Calculated left ventricular ejection fraction is 67%. No regional wall motion abnormalities. Grade I diastolic dysfunction. Mild right ventricle dilatation. Normal right ventricular systolic function Mild pulmonary hypertension. RVSP 40mmHg Moderate tricuspid regurgitation Mild aortic regurgitation. Adult Echocardiography Procedure Report Left Ventricle LVEDD (3.7 - 5.6 cm): 3.23 cm LVESD (2.2 - 4.0 cm): 2.28 cm LVIVS thickness (0.6 - 1.2 cm): 1.28 cm LVPW thickness (0.5 - 1.0 cm): 1.06 cm e': 0.10 m/s E - e': 5.28 LVOT Max Gradient: 4.42 mm[Hg] LVOT Area (cm2): 1.05 m/s Peak Velocity (LVOT): 1.05 m/s Mean Velocity (LVOT): 0.76 m/s LVOT Diameter 2.13 cm Left Ventricular Ejection Fraction: 67.30 % Left Atrium LA Volume Index (2D A2C): 31.32 ml/m2 Left Atrium Systolic Dimension: 2.54 cm Mitral Valve MV E to A Ratio: 0.64 MV Max Gradient: MV Mean Gradient: Mitral Valve A-Wave Peak Velocity: 0.83 m/s Mitral Valve E-Wave Peak Velocity: 0.53 m/s Cardiovascular Orifice Area: Right Ventricle RV Internal Diastolic Dimension: 4.07 cm Aorta AO Root Diam: 3.73 cm Ascending Ao Diam: 3.33 cm Aortic Valve AoV Area (Peak Prince): 2.76 cm2, 2.68 cm2 AoV Area (VTI): 2.53 cm2, 2.32 cm2 Deceleration Dickey: 2.52 m/s2 Pressure Half-Time: 475.73 ms Peak Velocity(Antegrade Flow): 1.40 m/s, 1.32 m/s Peak Gradient(Antegrade Flow): 7.89 mm[Hg], 7.01 mm[Hg] Mean Velocity(Antegrade Flow): 1.02 m/s, 0.98 m/s Mean Gradient(Antegrade Flow): 4.62 mm[Hg], 4.33 mm[Hg] Velocity Time Integral: 31.16 cm, 25.97 cm Tricuspid Valve Peak Velocity (Regurgitant Flow): 2.45 m/s, 2.76 m/s, 3.03 m/s Peak Velocity: Pulmonic Valve Mean Gradient: Mean Velocity: Peak Velocity: 0.72 m/s Peak Gradient: 1.93 mm[Hg], 2.17 mm[Hg] Right Atrium Right Atrium Systolic Pressure: 79.88 ml, 79.88 ml Dictated by: Kristi Gonzales MD on 03/10/2024 at 18:13 Approved by: Kristi Gonzales MD on 03/10/2024 at 18:21
--- OUTSIDE RECORDS SUMMARY | 2024-03-10 15:12 | XMS_ITS | CCD ---
Author Organization [facility] Care Team Providers Care Inspector Wire Rope Name Role Phone IGNACIO, CAN Unavailable Unavailable IGNACIO, CAN Unavailable Unavailable IGNACIO, CAN Unavailable Unavailable UNABLE TO VALIDATE Unavailable Unavailable Arvind Trevino Unavailable Unknown, Referring Provider Unavailable Unav ailable Unavailable Unavailable MD Kory Ambriz Primary Care Provider GRETA Martin Attending Provider UNKNOWN, PCP Primary Care Unavailable Lamont Brown, Dr. Deutsch Referring Unavailable Lamont Brown, Dr. Deutsch Attending Unavailable Lamont Brown, Dr. Deutsch Attending Unavailable UNKNOWN, PCP Primary Care Unavailable Lamont Brwon, Dr. Deutsch Referring Unavailable Lamont Brown, Dr. Deutsch Attending Unavailable HOY ., DR HORN Admitting Unavailable HOY ., DR HORN Attending Unavailable HOY ., DR HORN Primary Care Unavailable HOY ., DR HORN Consulting Unavailable ZIEBER, DR ELVA Anaya Consulting Unavailable HOY ., DR HORN Admitting Unavailable HOY ., DR HORN Attending Unavailable HOY ., DR HORN Primary Care Unavailable HOY ., DR HORN Consulting Unavailable ZIEBER, DR ELVA Anaya Consulting Unavailable CAS, YISSEL Admitting Unavailable YISSEL CARDOZO Attending Unavailable LINDA ., DR HORN Primary Care Unavailable JESSICA, DR SAE Lazar Consulting Unavailable CAS, YISSEL Consulting Unavailable NU, LEILA Admitting Unavailable NU, LEILA Attending Unavailable HOY ., DR HORN Primary Care Unavailable JESSICA, DR SAE Lazar Consulting Unavailable NU, LEILA Consulting Unavailable NU, LEILA Admitting Unavailable LEILA MARTIN Attending Unavailable HOY ., DR HORN Primary Care Unavailable ZIEBEMILIANO, DR ELVA Anaya Consulting Unavailable LEILA MARTIN Consulting Unavailable HOY ., DR HORN Admitting Unavailable HOY ., DR HORN Attending Unavailable HOY ., DR HORN Primary Care Unavailable HOY ., DR HORN Consulting Unavailable [facility] Attending Unavailable HUSSAIN MEDELLIN Attending Unavailable MD Kory Ambriz Primary Care Provider DO Arvind Trevino Attending Provider MD Sae Rodríguez Attending Provider BECKHAM, NATALIE Alcantar Attending Unavailable HIGHLANDER, MADELINE [...] Attending Unavailable HIGHLANDER, MADELINE Coronel Referring Unavailable MARY LOU, ABENA Attending Unavailable HIGHLANDER, MADELINE Coronel Referring Unavailable [...] Referring Unavailable BECKHAM, NATALIE Alcantar Attending Unavailable FRANK, ARVIND Referring Unavailable BECKHAM, NATALIE Alcantar Attending Unavailable FRANKFAINAIN Referring Unavailable BECKHAM, NATALIE Alcantar Attending Unavailable FRANKFAINAIN Referring Unavailable WENGERD, ALLYSSA Attending Unavailable FRANK, ARVIND Referring Unavailable BECKHAM, NATALIE L Attending Unavailable FRANK, ARVIND Referring Unavailable BECKHAM, NATALIE L Attending Unavailable FRANK, ARVIND Referring Unavailable BECKHAM, NATALIE L Attending Unavailable FRANK, ARVIND Referring Unavailable MARY SEALS Attending Unavailable BECKHAM, NATALIE L Attending Unavailable FRANK, ARVIND Referring Unavailable BECKHAM, NATALIE L Attending Unavailable FRANK, ARVIND Referring Unavailable WENGERD, ALLYSSA Attending Unavailable FRANK, ARVIND Referring Unavailable RINKES, YISSEL E Attending Unavailable RINKES, YISSEL E Referring Unavailable WENGERD, ALLYSSA Attending Unavailable FRANK, ARVIND Referring Unavailable WENGERD, ALLYSSA Attending Unavailable FRANK, ARVIND Referring Unavailable BECKHAM, NATALIE L Attending Unavailable FRANK, ARVIND Referring Unavailable BECKHAM, NATALIE L Attending Unavailable FRANK, ARVIND Referring Unavailable BECKHAM, NATALIE L Attending Unavailable FRANK, ARVIND Referring Unavailable Obermeyemiliano, SHEET PILE DRIVER OPERATOR-C Tiffany Alcantar Attending Provider MD Kory Ambriz Primary Care Provider [phone] DO Arvind Trevino Attending Provider [phone] MD Kory Ambriz Primary Care Provider [phone] Sherry DO Gisselle L Attending Provider [phone] MD Kory Ambriz Primary Care Provider [phone] Sae Rodríguez Admitting Unavailable Sae Rodríguez Attending Unavailable Kory Ambriz Primary Care Unavailable Frank, Arvind A Admitting Unavailable Frank, Arvind A Attending Unavailable Kory Ambriz M Primary Care Unavailable Obermeyer, Tiffany L Admitting Unavailable Obermeyer, Tiffany L Attending Unavailable Koyr Ambriz M Primary Care Unavailable Ly, Gisselle L Admitting Unavailable Ly, Gisselle L Attending Unavailable Kory Ambriz M Primary Care Unavailable Frank, Arvind A Admitting Unavailable Frank, Arvind A Attending Unavailable Kory Ambriz M Primary Care Unavailable Ly, Gisselle L Admitting Unavailable Ly, Gisselle L Attending Unavailable Kory Ambriz M Primary Care Unavailable Allergies Allergy Classification Reported Allergen(s) Allergy Type Date of Onset Reaction(s) Facility (20 sources) HYDROmorphone; Translations: [HYDROMORPHONE] Drug Allergy 01-26-20 21 anaphylaxis [facility] (19 sources) Morphine Drug Allergy 01-26-20 21 rash [facility] (7 sources) Penicillin V Drug Allergy rash [facility] [employer] Other (7 sources) sulfaSALAzine Drug Allergy rash [facility] [employer] Other (15 sources) Penicillins; Translations: [Penicillins] Allergy to drug (finding) 01-26-20 21 Itching, Rash [facility] (2 sources) Sulfamethoxazole; Translations: [sulfa] Drug Allergy Itching [id number] [address] Work Phone: (14 sources) Sulfonamides (Antibiotic); Translations: [Sulfa (Sulfonamide Antibiotics)] Allergy to substance 01-26-20 [facility] (1 source) Ciprofloxacin Drug Allergy [facility] (2 sources) fentaNYL; Translations: [FENTANYL] Drug Allergy 04-23-19 15 [facility] (1 source) HYDROmorphone Drug Allergy 11-29-19 13 [facility] (1 source) Penicillins Drug allergy (disorder) 04-27-19 21 [facility] (1 source) Sulfonamides (Antibiotic) Drug allergy (disorder) 11-29-19 13 [facility] (1 source) Sulfanilamide; Translations: [SULFANILAMIDE] Drug Allergy 09-06-19 23 [facility] (2 sources) HYDROmorphone Drug Allergy 12-28-19 24 [facility] (2 sources) Morphine Drug Allergy 12-28-19 24 [facility] (2 sources) Penicillins Drug allergy (disorder) 12-28-19 24 [facility] Medications Current Medications Medication Drug Class(es) Dates Sig (Normalized) Sig (Original) acyclovir 800 mg oral tablet (10 sources) Herpesvirus Nucleoside Analog DNA Polymerase Inhibitor, Herpes Simplex Virus Nucleoside Analog DNA Polymerase Inhibitor, Herpes Zoster Virus Nucleoside Analog DNA Polymerase Inhibitor Start: 08-16-2023 take 800 mg by mouth once daily Acyclovir Active 800 MG PO Daily August 16, 2023 12:00am Start: 09-08-2021 take 1 tablet by reji th once daily Acyclovir 800 MG Oral Tablet TAKE 1 TABLET BY MOUTH DAILY Quantity: 30 Refills: 0 Ordered: 08-Sep-2021 DO Start : 08-Sep-2021 Active amLODIPine 5 mg oral tablet (8 sources) Dihydropyridine Calcium Channel Cathy Start: 08-16-2023 [...] MARK Active carvedilol 25 mg oral tablet (20 sources) alpha-Adrenergic Cathy, beta-Adrenergic Cathy Start: 08-16-2023 [...] succinate 50 mg extended release oral tablet (8 sources) Serotonin and Norepinephrine Reuptake Inhibitor Start: 08-16-2023 take 50 mg by mouth once daily Desvenlafaxine Succinate Active 50 MG PO Daily August 16, 2023 12:00am estradiol 0.5 mg oral tablet (20 sources) Estrogen Start: 12-29-2020 take 1 mg by mouth once daily at bedtime Estradiol Active 1 MG PO Daily at bedtime December 29, 2020 12:00am Start: 09-01-2020 take 1 tablet by reji th once daily Estradiol 0.5 MG Oral Tablet TAKE 1 TABLET BY MOUTH DAILY Quantity: 30 Refills: 0 Ordered: 29-Aug-2021 DO Start : 01-Sep-2020 Active Fluticasone Propion-Salmeterol (10 sources) Corticosteroid, beta2-Adrenergic Agonist Start: 08-16-2023 Fluticasone Propion-Salmeterol (Wixela Inhub) 250-50 mcg/dose blister with device Active 1 INH INHALATION Twice daily August 16, 2023 12:00am Start: 12-12-2021 Fluticasone-Sa lmeterol 250-50 MCG/ACT Inhalation Aerosol Powder Breath Activated USE 1 INHALATION TWICE A DAY Quantity: 1 Refills: 5 Ordered: 10-Jan-2022 La Nena Miguel DO Start : 12-Dec-2021 Active lisinopril 40 mg oral tablet (20 sources) Angiotensin Converting Enzyme Inhibitor Start: 08-16-2023 take 40 mg by mouth once daily Lisinopril Active 40 MG PO Daily August 16, 2023 12:00am Start: 12-29-2020 End: 08-16-2023 take 10 mg by mouth once daily at bedtime Lisinopril Discontinued 10 MG PO Daily at bedtime December 29, 2020 12:00am August 16, 2023 2:07pm [facility] Lisinopril 40 MG 1 tablet Orally Once a day Active omeprazole 20 mg delayed release oral capsule (20 sources) Proton Pump Inhibitor Start: 08-16-2023 take 20 mg by mouth once daily Omeprazole Active 20 MG PO Daily August 16, 2023 12:00am Start: 06-02-2021 take 1 capsule by mo [facility] once daily Omeprazole 20 MG Oral Capsule Delayed Release TAKE 1 CAPSULE BY MOUTH DAILY Quantity: 30 Refills: 0 Ordered: 29-Aug-2021 DO Start : 02-Jun-2021 Active Start: 12-29-2020 End: 08-16-2023 take 40 mg by mouth twice daily Omeprazole Discontinue d 40 MG PO Twice daily December 29, 2020 12:00am August 16, 2023 2:07pm Start: 07-07-2020 take 1 capsule by mo [facility] every twelve hours Omeprazole 40 MG Oral Capsule Delayed Release TAKE 1 CAPSULE BY MOUTH EVERY 12 HOURS Quantity: 60 Refills: 0 Ordered: 27-May-2021 DO Start : 07-Jul-2020 Complete take 1 capsule by mo [facility] once daily Omeprazole 40 MG 1 capsule 30 minutes before morning meal Orally Once a day Active ondansetron 4 mg oral tablet (4 sources) Serotonin-3 Receptor Antagonist Start: 12-28-2023 take 4 mg by mouth every six hours Ondansetron Hcl Active 4 MG PO Every 6 hours 3 December 28, 2023 12:00am Start: 12-31-2020 take 1 tablet by reji th four times daily as needed Ondansetron 4 MG Oral Tablet Disintegrating DISSOLVE 1 (ONE) TABLET on tongue FOUR TIMES DAILY NEEDED Quantity: 9 Refills: 0 Ordered: 31-Dec-2020 DO Start : 31-Dec-2020 Active oxaprozin 600 mg oral tablet (1 source) Nonsteroidal Anti-inflammatory Drug Start: 01-07-2024 take 1 tablet by mouth twice daily Oxaprozin (Daypro) 600 mg tablet Active 600 MG PO Twice daily January 07, 2024 12:00am simvastatin 20 mg oral tablet (20 sources) HMG-CoA Reductase Inhibitor Start: 12-29-2020 take [...] fill until 01/10/21 post op MARK Active vancomycin 125 mg oral capsule (1 source) Glycopeptide Antibacterial Start: 01-01-2024 take 125 mg by mouth four times daily Vancomycin Active 125 MG PO Four times daily 56 14 January 01, 2024 12:00am Completed/Discontinued Medications Medication Drug Class(es) Dates Sig (Normalized) Sig (Original) acetaminophen 500 mg oral tablet (16 sources) Start: 12-29-2020 End: 08-15-2023 Acetaminophen (Tylenol [...] 05-May-2021 Active carisoprodol 350 mg oral tablet (13 sources) Muscle Relaxant Start: 05-02-2021 take 2 [...] sodium 75 mg delayed release oral tablet (20 sources) Nonsteroidal Anti-inflammatory Drug Start: 08-16-2023 End: 01-07-2024 take 75 mg by mouth twice daily Diclofenac Sodium Discontinued 75 MG PO Twice daily August 16, 2023 2:09pm January 07, 2024 12:44pm Start: 08-15-2023 End: 08-16-2023 Diclofenac Sodium Discontinu [...] as needed Orally Twice a day Active diphenhydrAMINE hydrochloride [...] Active levothyroxine sodium 0.05 mg oral tablet (20 sources) l-Thyroxine Start: 06-02-2021 take 1 tablet [...] empty stomach Orally Once a day Active oxyCODONE hydrochloride 5 mg oral tablet [...] Refills: 0 Ordered: 31-Jul-2021 DO Start : 14-Mar-2022 Complete traMADol hydrochloride 50 mg oral tablet (15 sources) Opioid Agonist Start: 12-15-2020 End: 08-15-2023 [...] Active Problems Problem Classification Problem Date Documented Da te Episodic/Chronic Allergic reactions (2 sources) Allergic condition; Translations: [Allergy, unspecified, not elsewhere classified] Episodic Comment on above: pollen and pets immu nocap 11/2021; Anxiety disorders (12 sources) Generalized anxiety disorder; Translations: [Generalized anxiety [...] [Mixed hyperlipidemia] Onset: 05-25-2022 Chronic Esophageal disorders (17 sources) Gastro-esophageal reflux disease without esophagitis; Translations: [Gastroesophageal reflux disease] Onset: 05-25-2022 08-16-2023 Chronic Essential hypertension (18 sources) Essential (primary) hypertension; Translations: [Hypertensive disorder] Onset: 03-29-2023 Chronic Noninfectious gastroenteritis (5 sources) Chronic diarrhea; Translations: [Noninfective gastroenteritis and colitis, unspecified] Onset: 12-31-2023 12-28-2023 Episodic Nonspecific chest pain (12 sources) Atypical chest pain; Translations: [Other chest pain] 01-25-2021 Episodic Nutritional deficiencies (1 source) Vitamin D deficiency, unspecified; Translations: [VITAMIN D DEFICIENCY UNSPECIFIED] Onset: 05-25-2022 Chronic Osteoarthritis (20 sources) Osteoarthritis of left hip joint; Translations: [Unilateral primary osteoarthritis, left hip] Onset: 01-07-2021 Resolved: 02-07-2021 Chronic Other connective tissue disease (11 sources) History of total hip arthroplasty; Translations: [Presence of left artificial hip joint] 08-01-2023 Chronic Other connective tissue disease (19 sources) Presence of left artificial hip joint; Translations: [Hip joint replacement] Onset: 08-01-2023 08-01-2023 Chronic Other connective tissue disease (12 sources) Foot pain; Translations: [Pain in unspecified foot] 12-18-2020 Episodic Other connective tissue disease (11 sources) Trochanteric bursitis; Translations: [Trochanteric bursitis, left hip] 08-01-2023 Episodic Other connective tissue disease (18 sources) Trochanteric bursitis, left hip; Translations: [Enthesopathy of hip region] 08-01-2023 Episodic Other gastrointestinal disorders (3 sources) Diarrhea; Translations: [Diarrhea, unspecified] 12-28-2023 Episodic Other gastrointestinal disorders (1 source) Diarrhea, unspecified; Translations: [Diarrhea, unspecified] Onset: 12-31-2023 Episodic Other inflammatory condition of skin (2 [...] UNSPECIFIED] Onset: 05-25-2022 Episodic Other skin disorders (7 sources) Lump on finger; Translations: [Localized swelling, mass and lump, right upper limb] 10-03-2023 Episodic Residual codes; unclassified (8 sources) Sleep apnea; Translations: [Sleep apnea, unspecified] 08-16-2023 Chronic Residual codes; unclassified (9 sources) Sleep apnea, unspecified; Translations: [Unspecified sleep apnea] Onset: 09-04-2023 08-16-2023 Chronic Spondylosis; intervertebral disc disorders; other back problems (2 sources) Other cervical disc degeneration, unspecified cervical region; Translations: [Spondylosis without myelopathy or radiculopathy, cervical region] Onset: 06-29-2022 Chronic Spondylosis; intervertebral disc disorders; other back problems (4 sources) Cervicalgia; Translations: [CERVICALGIA] Onset: 07-10-2022 Episodic Thyroid disorders (20 sources) Hypothyroidism, unspecified; Translations: [Hypothyroidism] Onset: 05-23-2022 [...] left hip Onset: 01-07-2021 Resolved: 01-07-2021 Episodic Other skin disorders (7 sources) Localized swelling, mass and lump, right upper limb; Translations: [Localized superficial swelling, mass, or lump] Onset: 10-03-2023 10-03-2023 Episodic Residual codes; unclassified (3 sources) Other [...] Test Name Value Interpretation Reference Range Facility [facility] 01-17-2024 L Specimen: [id number] Received: 01/17/24 Status: GIBRAN Vega Num: [id number] Spec Type: Surgical Subm Dr: Gisselle Powell DO Tissues: A Small Intestine - Biopsy/Polyp (SM BOWEL R/O CELIAC) B GASTRIC FOR HP (GASTRIC BX R/O H PYLORI) C Esophagus Biopsy (DISTAL ESO BX R/O ENRRIQUE + ) D Esophagus Biopsy (PROXIMAL ESO BX R/O ENRRIQUE ) E Colon Biopsy (RANDOMRT COLON BXS) F Colon Biopsy (RANDOM LT COLON) Procedures: PAS - LGRN/2, HE/12, Gross/Micro L4/6, H PYLORI Age/ Patient Sex Location Account Attending Physician Robbie Kemp 68/F [id number] Gisselle Powell DO SPEC NUM: [id number] RECD: 01/17/24 STATUS: GIBRAN HORNCarlos NUM: [id number] HENRIK: 01/17/[address]: Gisselle Powell DO ENTERED: 01/17/24-1301 [facility] DR: SPEC TYPE: Surgical DEPT: S ENTERED BY: [id number] RECV BY: [id number] ORDERED: PAS - LGRN/2, HE/12, Gross/Micro L4/6, H PYLORI ORDERED: PAS - LGRN/2, HE/12, Gross/Micro L4/6, H PYLORI Pathological Diagnosis A. Small bowel, biopsy: - Small bowel mucosa with no significant histopathology. - See Comment. B. Stomach, biopsy: - Oxyntic-type gastric mucosa with minimal chronic inactive gastritis. - No Helicobacter pylori microorganisms identified with immunohistochemical stain. C. Esophagus, distal, biopsy: - Squamous epithelium with reactive changes. - No eosinophilic infiltrate identified - No glandular mucosa present - PAS stain negative for fungal elements. D. Esophagus, proximal, biopsy: - Squamous epithelium with reactive changes. - No eosinophilic infiltrate identified - No glandular mucosa present - PAS stain negative for fungal elements. Specimen: [id number] Received: 01/17/24 Status: GIBRAN Vega Num: [id number] Spec Type: Surgical Subm Dr: Gisselle Powell DO Tissues: A Small Intestine - Biopsy/Polyp (SM BOWEL R/O CELIAC) B GASTRIC FOR HP (GASTRIC BX R/O H PYLORI) C Esophagus Biopsy (DISTAL ESO BX R/O ENRRIQUE + ) D Esophagus Biopsy (PROXIMAL ESO BX R/O ENRRIQUE ) E Colon Biopsy (RANDOMRT COLON BXS) F Colon Biopsy (RANDOM LT COLON) Procedures: PAS - LGRN/2, /, Gross/Micro L4/6, H PYLORI Patient: Robbie Kemp [id number] (Continued) Specimen: [id number] Received: 01/17/24 (Continued) Pathological Diagnosis (Continued) Signed (signature on file) Terry Aparicio MD 01/24/24 1632 Specimen: [id number] Received: 01/17/24 Status: GIBRAN Vega Num: [id number] Spec Type: Surgical Subm Dr: Gisselle Powell, DO Tissues: A Small Intestine - Biopsy/Polyp (SM BOWEL R/O CELIAC) B GASTRIC FOR HP (GASTRIC BX R/O H PYLORI) C Esophagus Biopsy (DISTAL ESO BX R/O ENRRIQUE + ) D Esophagus Biopsy (PROXIMAL ESO BX R/O ENRRIQUE ) E Colon Biopsy (RANDOMRT COLON BXS) F Colon Biopsy (RANDOM LT COLON) Procedures: PAS - LGRN/2, HE/12, Gross/Micro L4/6, H PYLORI Patient: KeeganRobbie Husain [id number] (Continued) Specimen: [id number] Received: 01/17/24 (Continued) Pathological Diagnosis (Continued) E. Colon, random biopsy: - Benign colonic mucosa with no significant histopathology. - No evidence of chronic, active or microscopic colitis identified. F. Colon, left, random biopsy: - Benign colonic mucosa with lymphoid aggregates. - No evidence of chronic, active or microscopic colitis identified. Comment: The patient's history of celiac disease is noted, however, no evidence of celiac disease identified in this small bowel biopsy specimen. Correlation with clinical, endoscopic and serology data with determination of anti- endomysial and anti-tissue transglutaminase antibodies is required. Clinical Information Abdominal pain, celiac, diarrhea Gross Description Part a received in formalin with the patient's name and small bowel and consists of two fragments of de la fuente tissue measuring 0.2 and 0.4 cm in greatest dimension. The specimen is entirely submitted in cassette A1. Part B received in formalin with the patient's name and gastric biopsy and consists of one fragment of de la fuente tissue measuring 0.5 cm in greatest dimension. The specimen is entirely submitted in cassette B1. Part C received in formalin with the patient's name and esophageal distal biopsy and consists of two fragments of de la fuente tissue measuring 0.4 and 0.5 cm in greatest dimension. The specimen is entirely submitted in cassette C1. Part D received in formalin wit (more content not included)... Normal [facility] C reactive protein [Mass/vol ume] in Serum or PlasmaOrdered By: Gisselle Powell on 12-31-2023 CRP [Mass/Vol] < 0.5 mg/dL 0.0-0.5 [facility] C-Reactive Proteinon 024 CRP [Mass/Vol] mg/L Normal 0.0-0.5 [facility] Comment on above: Result Comment: PERF ORMED BY: [place] [address] PATHOLOGIST SHOP COORDINATOR SHIRA PEREIRA M.D. Performed By: #### C ELIAC #### [facility] , #### CRP #### [address] Calprotectin [Mass/mass] in StoolOrdered By: Gisselle Powell on 12-31-2023 Calprotectin (Stl) [Mass/Mass] 66 ug/g 0-120 [facility] Comment on above: Concentration Interp retation Follow-Up< 5 - 50 ug/g Normal None>50 -120 ug/g Borderline Re-evaluate in 4-6 weeks >120 ug/g Abnormal Repeat as clinically indicatedPerformed at: - [facility] [address] [id number] Director: Adelaide Méndez MD, Phone: [phone] Calprotectin, Fecalon 2023 Calprotectin, Fecal 66 Normal 0-120 [facility] Comment on above: Result Comment: Conc entration Interpretation Follow-Up < 5 - 50 ug/g Normal None >50 -120 ug/g Borderline Re-evaluate in 4-6 weeks >120 ug/g Abnormal Repeat as clinically indicated Performed at: - [facility] [id number] Communication Center Operator: Adelaide Méndez MD, Phone: [phone] PERFORMED BY: [place] [address] PATHOLOGIST SHOP COORDINATOR SHIRA PEREIRA M.D. Performed By: #### C DT #### [facility] [address] [place] [address] #### GIARDIA, STCYRPTOAG, CALPROTECT, ELASTASE STOOL #### [facility] , Celiacon 12-31-2023 Deamidated Gliadin Abs, IgA 4 Normal 0-19 [facility] Comment on above: Result Comment: Nega tive 0 - 19 Weak Positive 20 - 30 Moderate to Strong Positive >30 Performed By: #### C ELIAC #### [facility] , #### CRP #### [facility] [address] [place] [address] Deamidated Gliadin Abs, IgG 2 Normal 0-19 [facility] Comment on above: Result Comment: Nega tive 0 - 19 Weak Positive 20 - 30 Moderate to Strong Positive >30 Performed By: #### C ELIAC #### [facility] , #### CRP #### [facility] [address] [place] [address] [place] Endomysial Antibody IgA Negative Normal Negative [facility] Comment on above: Performed By: #### C ELIAC #### [facility] , #### CRP #### [facility] [address] [place] [address] Immunoglobulin A, Qn, Serum 209 mg/dL Normal 87-352 [facility] Comment on above: Result Comment: Perf ormed at: - [facility] [place] [address] [place], [place] [id number] Communication Center Operator: Duane Gillette PhD, Phone: [phone] PERFORMED BY: [place] [address] PATHOLOGIST SHOP COORDINATOR SHIRA PEREIRA M.D. Performed By: #### C ELIAC #### [facility] , #### CRP #### [address] T-Transglutaminase (tTG) IgA <2 Normal 0-3 [facility] Comment on above: Result Comment: Nega tive 0 - 3 Weak Positive 4 - 10 Positive >10 Tissue Transglutaminase (tTG) has been identified as the endomysial antigen. Studies have demonstr- ated that endomysial IgA antibodies have over 99% specificity for gluten sensitive enteropathy. Performed By: #### C ELIAC #### [facility] , #### CRP #### [facility] [address] [place] [address] T-Transglutaminase (tTG) IgG 14 High 0-5 [facility] Comment on above: Result Comment: Nega tive 0 - 5 Weak Positive 6 - 9 Positive >9 Performed By: #### C ELIAC #### [facility] , #### CRP #### [facility] [address] [place] [address] Clostridioides difficile tox in B tcdB gene [Presence] in Stool by NOLVIA with probe deteOrdered By: Gisselle Powell on 12-31-2023 C. difficile toxin B tcdB gene NOLVIA+probe Ql (Stl) Positive Abnormal Negative [facility] Comment on above: Results calledat 161 8 on 12/31/23 --- 12/31/23 1618 ---CDT previously reported as: Positive *A Testing performed by RT-PCR Clostridium Difficileon Clostridium Difficile Positive Normal Negative [facility] Comment on above: Result Comment: Resu lts called at 1618 on 12/31/23 --- 12/31/23 1618 --- CDT previously reported as: Positive *A Testing performed by RT-PCR PERFORMED BY: [place] [address] PATHOLOGIST SHOP COORDINATOR SHIRA PEREIRA M.D. Performed By: #### C DT #### [facility] [address] [place] [address] #### GIARDIA, STCYRPTOAG, CALPROTECT, ELASTASE STOOL #### [facility] , Cryptosporidium Antigen Stoo eriberto 12-31-2023 Cryptosporidium Antigen Stool Negative Normal Negative [facility] Comment on above: Performed By: #### C DT #### [facility] [address] [place] [address] #### GIARDIA, STCYRPTOAG, CALPROTECT, ELASTASE STOOL #### [facility] , Cryptosporidium sp Ag [Prese nce] in Stool by ImmunoassayOrdered By: Gisselle Powell on 12-31-2023 Cryptosporidium sp Ag IA Ql (Stl) Negative Negative [facility] Elastase.pancreatic [Mass/ma ss] in StoolOrdered By: Gisselle Powell on 12-31-2023 Elastase.pancreatic (Stl) [Mass/Mass] 539 >200 [facility] Comment on above: Result Units: ug Lawanda st./g Severe Pancreatic Insufficiency: <100 Moderate Pancreatic Insufficiency: 100 - 200 Normal: >200Performed at: - [facility] [id number] Director: Adelaide Méndez MD, Phone: [phone] Giardia Lamblia Ag EIA Stool on 12-31-2023 Giardia Lamblia Ag EIA Stool Negative Normal Negative [facility] Comment on above: Result Comment: Perf ormed at: - [facility] [address] [id number] Communication Center Operator: Duane Gillette PhD, Phone: [phone] PERFORMED BY: [place] [address] PATHOLOGIST SHOP COORDINATOR SHIRA PEREIRA M.D. Performed By: #### C DT #### [facility] [address] [place] [address] [place] #### GIARDIA, STCYRPTOAG, CALPROTECT, ELASTASE STOOL #### [facility] , Giardia lamblia Ag [Presence ] in Stool by ImmunoassayOrdered By: Gisselle Powell on 12-31-2023 G. lamblia Ag IA Ql (Stl) Negative Negative [facility] Comment on above: Performed at: [facility] [address] [id number] Director: Duane Gillette PhD, Phone: [phone] IgA [Mass/volume] in Serum o r PlasmaOrdered By: Gisselle Powell on 12-31-2023 IgA [Mass/Vol] 209 mg/dL 87-352 [facility] Comment on above: Performed at: [facility] Director: Duane Gillette PhD, Phone: [phone] No Panel InformationOrdered By: Gisselle Powell on 12-31-2023 Endomysial IgA Antibody Negative Negative [facility] Pancreatic Elastase, Stoolon 12-31-2023 Pancreatic Elastase, Stool 539 Normal >200 [facility] Comment on above: Result Comment: Resu lt Units: ug Elast./g Severe Pancreatic Insufficiency: <100 Moderate Pancreatic Insufficiency: 100 - 200 Normal: >200 Performed at: - [facility] [id number] Communication Center Operator: Adelaide Méndez MD, Phone: [phone] Performed By: #### C DT #### [facility] [address] [place] [address] [place] #### GIARDIA, STCYRPTOAG, CALPROTECT, ELASTASE STOOL #### [facility] , Serum gliadin peptide IgA an tibody assay (units/volume)Ordered By: Gisselle Powell on 12-31-2023 Gliadin peptide IgA Qn (S) 4 units 0-19 [facility] Comment on above: Negative 0 - 19 Weak Positive 20 - 30 Moderate to Strong Positive >30 Serum gliadin peptide IgG an tibody assay (units/volume)Ordered By: Gisselle Powell on 12-31-2023 Gliadin peptide IgG Qn (S) 2 units 0-19 [facility] Comment on above: Negative 0 - 19 Weak Positive 20 - 30 Moderate to Strong Positive >30 Serum tissue transglutaminas e (tTG) IgA antibody assay (units/volume)Ordered By: Gisselle Powell on 12-31-2023 tTG IgA Qn (S) <2 U/mL 0-3 [facility] Comment on above: Negative 0 - 3 Weak Positive 4 - 10 Positive >10 Tissue Transglutaminase (tTG) has been identified as the endomysial antigen. Studies have demonstr- ated that endomysial IgA antibodies have over 99% specificity for gluten sensitive enteropathy. Serum tissue transglutaminas e (tTG) IgG antibody assay (units/volume)Ordered By: Gisselle Powell on 12-31-2023 tTG IgG Qn (S) 14 U/mL High 0-5 [facility] Comment on above: Negative 0 - 5 Weak Positive 6 - 9 Positive >9 [place] Antinuclear Antibodieson 10-23-2023 Antinuclear Abs, IFA Negative Normal . [facility] Comment on above: Result Comment: Nega tive <1:80 Borderline 1:80 Positive >1:80 ICAP nomenclature: AC-0 For more information about Hep-2 cell patterns use ANApatterns.org, the official website for the International Consensus on Antinuclear Antibody ([place]) Patterns (ICAP). Performed at: [facility] [address] [place] [id number] Communication Center Operator: Duane Gillette PhD, Phone: [phone] PERFORMED BY: [facility] [address] [facility] [place] [address] PATHOLOGIST SHOP COORDINATOR SHIRA PEREIRA M.D. Performed By: #### E SR, CBC, CMP, CRP ####[facility] Cvq[address]#### [place] ####[facility] , Alanine aminotransferase [En zymatic activity/volume] in Serum or PlasmaOrdered By: Tiffany Fuentes on 10-23-2023 ALT [Catalytic activity/Vol] 18 U/L Normal 7-52 [facility] Comment on above: Performed By: #### E SR, CBC, CMP, CRP ####[place] [address] [address]#### [place] ####[facility] , Albumin [Mass/volume] in Ser um or Plasma by Bromocresol green (BCG) dye binding methoOrdered By: Tiffany Fuentes on 10-23-2023 Albumin BCG dye [Mass/Vol] 4.0 g/dL 3.5-5.7 [facility] Alkaline phosphatase [Enzyma tic activity/volume] in Serum or PlasmaOrdered By: Tiffany Fuentes on 10-23-2023 ALP [Catalytic activity/Vol] 66 U/L Normal 34-104 [facility] Comment on above: Performed By: #### E SR, CBC, CMP, CRP ####[address]#### [place] ####[facility] , Aspartate aminotransferase [ Enzymatic activity/volume] in Serum or PlasmaOrdered By: Tiffany Fuentes on 10-23-2023 AST [Catalytic activity/Vol] 17 U/L Normal 13-39 [facility] Comment on above: Performed By: #### E SR, CBC, CMP, CRP ####[place] [address] [place]#### [place] ####[facility] , Automated basophil %Ordered By: Tiffany Fuentes on 10-23-2023 Basophils/100 WBC (Bld) 0.7 % Normal . [facility] Comment on above: Performed By: #### E SR, CBC, CMP, CRP ####[address]#### [place] ####[facility] , Automated basophil countOrde red By: Tiffany Fuentes on 10-23-2023 Basophils (Bld) [#/Vol] 0.0 10*3/uL Normal 0.0-0.2 [facility] Comment on above: Performed By: #### E SR, CBC, CMP, CRP ####[address]#### [place] ####[facility] , Automated blood monocyte cou ntOrdered By: Tiffany Fuentes on 10-23-2023 Monocytes (Bld) [#/Vol] 0.4 10*3/uL Normal 0.0-0.8 [facility] Comment on above: Performed By: #### E SR, CBC, CMP, CRP ####[address]#### [place] ####[facility] , Automated eosinophil %Ordere d By: Tiffany Fuentes on 10-23-2023 Eosinophils/100 WBC (Bld) 2.2 % Normal . [facility] Comment on above: Performed By: #### E SR, CBC, CMP, CRP ####[address]#### [place] ####[facility] , Automated eosinophil countOr dered By: Tiffany Fuentes on 10-23-2023 Eosinophils (Bld) [#/Vol] 0.1 10*3/uL Normal 0.0-0.45 [facility] Comment on above: Performed By: #### E SR, CBC, CMP, CRP ####[place] [address] [place]#### [place] ####[facility] , Automated monocyte %Ordered By: Tiffany Fuentes on 10-23-2023 Monocytes/100 WBC (Bld) 10.8 % Normal . [facility] Comment on above: Performed By: #### E SR, CBC, CMP, CRP ####[place] [address] [place]#### [place] ####[facility] , Automated neutrophil %Ordere d By: Tiffany Fuentes on 10-23-2023 Neutrophils/100 WBC (Bld) 51.1 % Normal . [facility] Comment on above: Performed By: #### E SR, CBC, CMP, CRP ####[place] [address] [address]#### [place] ####[facility] , Bilirubin.total [Mass/volume ] in Serum or PlasmaOrdered By: Tiffany Fuentes on 10-23-2023 Bilirubin [Mass/Vol] 0.5 mg/dL Normal 0.3-1.0 [facility] Comment on above: Performed By: #### E SR, CBC, CMP, CRP ####[address]#### [place] ####[facility] , C reactive protein [Mass/vol ume] in Serum or PlasmaOrdered By: Tiffany Fuentes on 10-23-2023 CRP [Mass/Vol] < 0.5 mg/dL 0.0-0.5 [facility] C-Reactive Proteinon 024 CRP [Mass/Vol] mg/L Normal 0.0-0.5 [facility] Comment on above: Result Comment: PERF ORMED BY: [facility] [address] [address] PATHOLOGIST SHOP COORDINATOR SHIRA PEREIRA M.D. Performed By: #### E SR, CBC, CMP, CRP ####[place] [address] [address]#### [place] ####[facility] , Calcium [Mass/volume] in Ser um or PlasmaOrdered By: Tiffany Fuentes on 10-23-2023 Calcium [Mass/Vol] 8.8 mg/dL Normal 8.6-10.3 [facility] Comment on above: Performed By: #### E SR, CBC, CMP, CRP ####[address]#### [place] ####[facility] , Carbon dioxide, total [Moles /volume] in Serum or PlasmaOrdered By: Tiffany Fuentes on 10-23-2023 CO2 [Moles/Vol] 28.8 mmol/L Normal 21.0-31.0 [facility] Comment on above: Performed By: #### E SR, CBC, CMP, CRP ####[address]#### [place] ####[facility] , Chloride [Moles/volume] in S hal or PlasmaOrdered By: Tiffany Fuentes on 10-23-2023 Chloride [Moles/Vol] 102 mmol/L Normal 98-107 [facility] Comment on above: Performed By: #### E SR, CBC, CMP, CRP ####[address]#### [place] ####[facility] , Complete Blood Count Auto Di ffon 10-23-2023 Mean Corpuscular HGB Conc 33.7 g/dL Normal 32.0-35.0 [facility] Comment on above: Performed By: #### E SR, CBC, CMP, CRP ####[place] [address] [place]#### [place] ####[facility] , NRBC% 0.1 /100{WBC} Normal 0-0.5 [facility] Comment on above: Performed By: #### E SR, CBC, CMP, CRP ####[place] [address] [place]#### [place] ####[facility] , Comprehensive Metabolic Pane eriberto 10-23-2023 Albumin [Mass/Vol] 4.0 g/dL Normal 3.5-5.7 [facility] Comment on above: Performed By: #### E SR, CBC, CMP, CRP ####[address]#### [place] ####[facility] , GFR/1.73 sq M.predicted MDRD (S/P/Bld) [Vol rate/Area] mL/min/{1.73_m2} Normal [facility] Comment on above: Performed By: #### E SR, CBC, CMP, CRP ####[address]#### [place] ####[facility] , Creatinine [Mass/volume] in Serum or PlasmaOrdered By: Tiffany Fuentes on 10-23-2023 Creatinine [Mass/Vol] 0.83 mg/dL Normal 0.60-1.20 [facility] Comment on above: Performed By: #### E SR, CBC, CMP, CRP ####[address]#### [place] ####[facility] , Erythrocyte Sedimentation Ra stiven 10-23-2023 ESR (Bld) [Velocity] 5 mm/h Normal 0-29 [facility] Comment on above: Result Comment: PERF ORMED BY: [address] [place] [address] PATHOLOGIST SHOP COORDINATOR SHIRA PEREIRA M.D. Performed By: #### E SR, CBC, CMP, CRP ####[address]#### [place] ####[facility] , Erythrocyte distribution wid th [Ratio] by Automated countOrdered By: Tiffany Fuentes on 10-23-2023 Erythrocyte distribution width (RBC) [Ratio] 12.4 % Normal 11.9-15.3 [facility] Comment on above: Performed By: #### E SR, CBC, CMP, CRP ####[place] [address] [place]#### [place] ####[facility] , Erythrocyte sedimentation ra te by Photometric methodOrdered By: Tiffany Fuentes on 10-23-2023 ESR Photometric method (Bld) [Velocity] 5 mm/hr 0-29 [facility] Erythrocytes [#/volume] in B lood by Automated countOrdered By: Tiffany Fuentes on 10-23-2023 RBC (Bld) [#/Vol] 3.39 10*6/uL Low 3.60-5.00 [facility] Comment on above: Performed By: #### E SR, CBC, CMP, CRP ####[facility]#### [place] ####[facility] , Glucose [Mass/volume] in Ser um or PlasmaOrdered By: Tiffany Fuentes on 10-23-2023 Glucose [Mass/Vol] 99 mg/dL Normal 70-100 [facility] Comment on above: ADA recommended refe rence rangeRandom Glucose Reference Range is dependent on time and content of last meal. Glucose of more than 200 mg/dL in a nonstressed, ambulatory subject supports the diagnosis of Diabetes Mellitus. Result Comment: [place] om Glucose Reference Range is dependent on time and content of last meal. Glucose of more than 200 mg/dL in a nonstressed, ambulatory subject supports the diagnosis of Diabetes Mellitus. ADA recommended reference range Performed By: #### E SR, CBC, CMP, CRP ####[facility] [place] [address] [place]#### [place] ####[facility] , Hematocrit [Volume Fraction] of Blood by Automated countOrdered By: Tiffany Fuentes on 10-23-2023 Hematocrit (Bld) [Volume fraction] 35.0 % Normal 34.0-46.4 [facility] Comment on above: Performed By: #### E SR, CBC, CMP, CRP ####[facility] [place] [address] [place]#### [place] ####[facility] , Hemoglobin [Mass/volume] in BloodOrdered By: Tiffany Fuentes on 10-23-2023 Hemoglobin (Bld) [Mass/Vol] 11.8 g/dL Normal 11.8-15.4 [facility] Comment on above: Performed By: #### E SR, CBC, CMP, CRP ####[place] [address] [address]#### [place] ####[facility] , Leukocytes [#/volume] correc shakir for nucleated erythrocytes in Blood by Automated counOrdered By: Tiffany Fuentes on 10-23-2023 WBC corrected for nucl RBC Auto (Bld) [#/Vol] 4.0 10*3/uL 3.8-11.6 [facility] Leukocytes [#/volume] in Blo od by Automated countOrdered By: Tiffany Fuentes on 10-23-2023 WBC (Bld) [#/Vol] 4.0 10*3/uL Normal 3.8-11.6 [facility] Comment on above: Performed By: #### E SR, CBC, CMP, CRP ####[place] [address] [place]#### [place] ####[facility] , Lymphocytes [#/volume] in Bl ood by Automated countOrdered By: Tiffany Fuentes on 10-23-2023 Lymphocytes (Bld) [#/Vol] 1.4 10*3/uL Normal 1.00-4.8 [facility] Comment on above: Performed By: #### E SR, CBC, CMP, CRP ####[place] [address] [place]#### [place] ####[facility] , Lymphocytes/100 leukocytes i n Blood by Automated countOrdered By: Tiffany Fuentes on 10-23-2023 Lymphocytes/100 WBC (Bld) 35.2 % Normal . [facility] Comment on above: Performed By: #### E SR, CBC, CMP, CRP ####[address]#### [place] ####[facility] , MCH [Entitic mass] by Automa shakir countOrdered By: Tiffany Fuentes on 10-23-2023 MCH (RBC) [Entitic mass] 34.8 pg High 24.7-34.3 [facility] Comment on above: Performed By: #### E SR, CBC, CMP, CRP ####[address]#### [place] ####[facility] , MCHC Auto (RBC) [Mass/Vol]Or dered By: Tiffany Fuentes on 10-23-2023 MCHC (RBC) [Mass/Vol] 33.7 g/dL 32.0-35.0 [facility] MCV [Entitic volume] by Auto mated countOrdered By: Tiffany Fuentes on 10-23-2023 MCV (RBC) [Entitic vol] 103.2 fL High 80-100 [facility] Comment on above: Performed By: #### E SR, CBC, CMP, CRP ####[address]#### [place] ####[facility] , Neutrophils [#/volume] in Bl ood by Automated countOrdered By: Tiffany Fuentes on 10-23-2023 Neutrophils (Bld) [#/Vol] 2.0 10*3/uL Normal 1.8-7.7 [facility] Comment on above: Performed By: #### E SR, CBC, CMP, CRP ####[place] [address] [place]#### [place] ####[facility] , No Panel InformationOrdered By: Tiffany Fuentes on 10-23-2023 Estimated GFR (CKD-EPI) > 60.0 mL/Min [facility] Creatinine Clearance (Chem N/A [facility] Nucleated erythrocytes [Pres ence] in Blood by Automated countOrdered By: Tiffany Fuentes on 10-23-2023 Nucleated RBC Auto Ql (Bld) 0.1 /100{WBC} 0-0.5 [facility] Platelet mean volume [Entiti c volume] in Blood by Automated countOrdered By: Tiffany Fuentes on 10-23-2023 Platelet mean volume (Bld) [Entitic vol] 7.7 fL Normal 6.3-10.7 [facility] Comment on above: Performed By: #### E SR, CBC, CMP, CRP ####[address]#### [place] ####[facility] , Platelets [#/volume] in Bloo d by Automated countOrdered By: Tiffany Fuentes on 10-23-2023 Platelets (Bld) [#/Vol] 168 10*3/uL Normal 150-450 [facility] Comment on above: Performed By: #### E SR, CBC, CMP, CRP ####[address]#### [place] ####[facility] , Potassium [Moles/volume] in Serum or PlasmaOrdered By: Tiffany Fuentes on 10-23-2023 Potassium [Moles/Vol] 3.9 mmol/L Normal 3.5-5.1 [facility] Comment on above: Performed By: #### E SR, CBC, CMP, CRP ####[place] [address] [place]#### [place] ####[facility] , Protein [Mass/volume] in Ser um or PlasmaOrdered By: Tiffany Fuentes on 10-23-2023 Protein [Mass/Vol] 6.4 g/dL Normal 6.4-8.9 [facility] Comment on above: Performed By: #### E SR, CBC, CMP, CRP ####[place] [address] [place]#### [place] ####[facility] , Serum globulin measurement b y calculation (mass/volume)Ordered By: Tiffany Fuentes on 10-23-2023 Globulin (S) [Mass/Vol] 2.4 g/dL Normal [facility] Comment on above: Performed By: #### E SR, CBC, CMP, CRP ####[address]#### [place] ####[facility] , Serum nuclear antibody titer Ordered By: Tiffany Fuentes on 10-23-2023 Nuclear Ab (S) [Titer] Negative . [facility] Comment on above: Negative <1:80 Borde rline 1:80 Positive >1:80ICAP nomenclature: AC-0For more information about Hep-2 cell patterns useANApatterns.org, the official website for theInternational Consensus on Antinuclear Antibody ([place])Patterns (ICAP).Performed at: [address] Director: Duane Gillette PhD, Phone: [phone] Serum or plasma albumin/glob ulin mass ratioOrdered By: Tiffany Fuentes on 10-23-2023 Albumin/Globulin [Mass ratio] 1.7 {ratio} [facility] Comment on above: Performed By: #### E SR, CBC, CMP, CRP ####[address]#### [place] ####[facility] , Serum or plasma anion gap de terminationOrdered By: Tiffany Fuentes on 10-23-2023 Anion gap [Moles/Vol] 10.1 mmol/L Normal 6.0-15.0 [facility] Comment on above: Performed By: #### E SR, CBC, CMP, CRP ####[place] [address] [address]#### [place] ####[facility] , Sodium [Moles/volume] in Ser um or PlasmaOrdered By: Tiffany Fuentes on 10-23-2023 Sodium [Moles/Vol] 137 mmol/L Normal 136-145 [facility] Comment on above: Performed By: #### E SR, CBC, CMP, CRP ####[facility] Sme[address]#### [place] ####[facility] , Urea nitrogen [Mass/volume] in Serum or PlasmaOrdered By: Tiffany Fuentes on 10-23-2023 Urea nitrogen [Mass/Vol] 14 mg/dL Normal 7-25 [facility] Comment on above: Performed By: #### E SR, CBC, CMP, CRP ####[facility] Iaf[address]28 [address]#### [place] ####[facility] , XR hand RT min 3V*on 024 XR hand RT min 3V* [facility] [address] [place] [address] XRay Report Signed Patient: Robbie Kemp MR#: [id number] : 1955 Acct:[id number] Age/Sex: 68 / F ADM Date: 10/03/23 Loc: [facility] Room: Type: [facility] Attending Dr: Arvind Trevino DO Copies to: Arvind Trevino DO Ordering Provider: Arvind Trevino DO Date of Service: 10/03/23 XR/XR [...] Tripp Johnson M.D.10/03/2023 3:10 PM Dictation Location: RADIO-PC-01 Transcribed By: [facility] 10/03/23 1510 Dictated By: Tripp Johnson DO 10/03/23 1508 Signed By: 10/03/23 1510 Normal [facility] XR hip LT min 2V(w/wo pelvis )*on 08-01-2023 XR hip LT min 2V(w/wo pelvis)* [facility] [address] [place] [address] XRay Report Signed Patient: Robbie Kemp MR#: [id number] : 1955 Acct:[id number] Age/Sex: 68 / F ADM Date: 08/01/23 Loc: [facility] Room: Type: [facility] Attending Dr: Arvind Trevino DO Copies to: Arvind Trevino DO Ordering Provider: Arvind Trevino DO Date of Service: 08/01/23 XR/XR [...] PROCESS.. Impression dictated by: Thomas Delgado Jr., D.OSabrina08/01/2023 2:49 PM Dictation Location: RADIO-PC-12 Transcribed By: LUIZA 08/01/23 1449 Dictated By: Thomas Delgado Jr, DO 08/01/23 1449 Signed By: 08/01/23 1449 Normal [facility] Office Visiton 03-29-2023 Follow-up visit [id number] Robbie Kemp 1955 F Date Provider Department Center 03/29/2023 [facility] Family History Problem Relation Age of Onset Hypertension Mother Atrial fibrillation Sister Family Status - Relation Status Age at Mother Sister Alive Level of Service:24749 PA OFFICE/OUTPATIENT ESTABLISHED MOD MDM 30-39 MIN Normal [facility] Office Visiton 02-26-2023 Follow-up visit [id number] Robbie Kemp 1955 M Date Provider Department Center 02/26/2023 [facility] Family History Problem Relation Age of Onset Hypertension Mother Atrial fibrillation Sister Family Status - Relation Status Age at Mother Sister Alive Level of Service:80567 PA OFFICE/OUTPATIENT ESTABLISHED MOD MDM 30-39 MIN Normal [facility] MRI CSPINE WO CONon 07-12-19 23 [...] ELVA MELISSA Date: 2022-07-11 11:43 Normal [facility] XR CSPINE MIN 4 VIEWSon 03-0 XR CSPINE MIN 4 VIEWS EXAMINATION: XR CS PINE MIN 4 VIEWS HISTORY: Neck pain ; [...] ELVA MELISSA Date: 2022-06-28 09:12 Normal [facility] CBC AUTO DIFFon 05-23-2022 BASO # 0.1 103/ul Normal 0.0-0.1 [facility] Comment on above: Performed By: #### C BC #### [facility] [address] [place] [address] Dr. Natasha Celeste Basophils/100 WBC (Bld) 1.4 % Normal 0.2-2.0 [facility] Comment on above: Performed By: #### C BC #### [facility] [address] [place] [address] Dr. Natasha Celeste EO # 0.1 103/ul Normal 0.0-0.7 [facility] Comment on above: Performed By: #### C BC #### [facility] [address] [place] [address] [address] Natasha Celeste Eosinophils/100 WBC (Bld) 2.4 % Normal 0.9-7.0 [facility] Comment on above: Performed By: #### C BC #### [facility] [address] [place] [address] Dr. Natasha Celeste Erythrocyte distribution width (RBC) [Ratio] 12.3 % Normal 11.0-15.0 [facility] Comment on above: Performed By: #### C BC #### [facility] [address] [place] [address] Dr. Natasha Celeste Hematocrit (Bld) [Volume fraction] 41.6 % Normal 36.0-48.0 [facility] Comment on above: Performed By: #### C BC #### [facility] [address] [place] [address] Dr. Natasha Celeste Hemoglobin (Bld) [Mass/Vol] 13.6 g/dL Normal 12.0-16.0 [facility] Comment on above: Performed By: #### C BC #### [facility] [address] [place] [address] Dr. Natasha Celeste IG # 0.02 10e3/ul Normal 0.00-0.03 [facility] Comment on above: Performed By: #### C BC #### [facility] [address] [place] [address] Dr. Natasha Celeste IG % 0.5 % Normal 0.0-0.5 [facility] Comment on above: Performed By: #### C BC #### [facility] [address] [place] [address] Dr. Natasha Celeste LYMPH # 1.4 103/ul Normal 1.2-3.8 [facility] Comment on above: Performed By: #### C BC #### [facility] [address] [place] [address] Dr. Natasha Celeste Lymphocytes/100 WBC (Bld) 33.3 % Normal 20.5-60.0 [facility] Comment on above: Performed By: #### C BC #### [facility] [address] [place] [address] Dr. Natasha Celeste MANUAL DIFF REQ NO Normal [facility] Comment on above: Performed By: #### C BC #### [facility] [address] [place] [address] Dr. Natasha Celeste MCH (RBC) [Entitic mass] 33.1 pg Normal 26.7-34.0 [facility] Comment on above: Performed By: #### C BC #### [facility] [address] [place] [address] Dr. Natasha Celeste MCHC (RBC) [Mass/Vol] 32.7 g/dL Normal 29.9-35.2 [facility] Comment on above: Performed By: #### C BC #### [facility] [address] [address] [address] Natasha Celeste MCV (RBC) [Entitic vol] 101.2 fL Critically high 81.0-99.0 [facility] Comment on above: Performed By: #### C BC #### [facility] [address] [address] [address] Natasha Celeste MONO # 0.4 103/ul Normal 0.3-0.8 [facility] Comment on above: Performed By: #### C BC #### [facility] [address] [place] [address] Dr. Natasha Celeste Monocytes/100 WBC (Bld) 10.4 % Normal 1.7-12.0 [facility] Comment on above: Performed By: #### C BC #### [facility] [address] [place] [address] Dr. Natasha Celeste NEUT # 2.2 103/ul Normal 1.4-6.5 [facility] Comment on above: Performed By: #### C BC #### [facility] [address] [place] [address] Dr. Natasha Celeste Neutrophils/100 WBC (Bld) 52.0 % Normal 43.0-75.0 [facility] Comment on above: Performed By: #### C BC #### [facility] [address] [place] [address] Dr. Natasha Celeste Platelet mean volume (Bld) [Entitic vol] 9.5 fL Normal 9.5-13.5 [facility] Comment on above: Performed By: #### C BC #### [facility] [address] [place] [address] Dr. Natasha Celeste PLT 186 103/ul Normal 150-450 [facility] Comment on above: Performed By: #### C BC #### [facility] [address] [place] [address] Dr. Natasha Celeste RBC 4.11 106/ul Critically low 4.20-5.40 [facility] Comment on above: Performed By: #### C BC #### [facility] [address] [place] [address] Dr. Natasha Celeste WBC 4.2 103/ul Normal 4.0-11.0 [facility] Comment on above: Performed By: #### C BC #### [facility] [address] [place] [address] Dr. Natasha Celeste FREE THYROXINE INDEX T7on FTI 3.47 Normal 1.30-4.50 [facility] Comment on above: Performed By: #### V ITAD, IRON #### [facility] [address] [place] [address] Dr. Natasha Celeste T3U 35.0 % Normal 30.0-39.0 [facility] Comment on above: Performed By: #### V ITAD, IRON #### [facility] [address] [place] [address] Dr. Natasha Celeste T4 [Mass/Vol] 9.90 ug/dL Normal 4.80-13.90 [facility] Comment on above: Performed By: #### V ITAD, IRON #### [facility] [address] [place] [address] Dr. Natasha Celeste GLYCOHEMOGLOBIN A1Con 2022 ADA RECOMMENDATION SEE BELOW Normal [facility] Comment on above: Result Comment: ADA RECOMMENDED LIMIT 4.0 - 6.0 ADA THERAPEUTIC TARGET < 7.0 ACTION SUGGESTED > 7.0 Performed By: #### A 1C #### [facility] [address] [place] [address] Dr. Natasha Celeste Glucose [Mass/Vol] 97 mg/dL Normal [facility] Comment on above: Performed By: #### A 1C #### [facility] [address] [place] [address] Dr. Natasha Celeste HbA1c (Bld) [Mass fraction] 5.0 % Normal 4.5-6.2 [facility] Comment on above: Performed By: #### A 1C #### [facility] [address] [place] [address] Dr. Natasha Celeste IRONon 05-23-2022 Iron [Mass/Vol] 105.0 ug/dL Normal 50.0-170.0 [facility] Comment on above: Performed By: #### V ITAD, IRON #### [facility] [address] [address] [address] Natasha Celeste LIPID PROFILEon 05-23-2022 CHOL-HDL RATIO NORM SEE BELOW Normal [facility] Comment on above: Result Comment: 3.3 - 4.4 LOW RISK 4.4 - 7.1 AVERAGE RISK 7.1 - 11.0 MODERATE RISK >11.0 HIGH RISK Performed By: #### V ITAD, IRON #### [facility] [address] [address] [address] Natasha Celeste Cholesterol [Mass/Vol] 176 mg/dL Normal <=200 [facility] Comment on above: Performed By: #### V ITAD, IRON #### [facility] [address] [address] [address] Natasha Celeste Cholesterol in HDL [Mass/Vol] 70 mg/dL Critically high 40-60 [facility] Comment on above: Performed By: #### V ITAD, IRON #### [facility] [address] [address] [address] Natasha Celeste Cholesterol in LDL [Mass/Vol] 83.2 mg/dL Normal [facility] Comment on above: Performed By: #### V ITAD, IRON #### [facility] [address] [address] [address] Natasha Celeste Cholesterol.total/Chol esterol in HDL [Mass ratio] 2.5 {ratio} Normal [facility] Comment on above: Performed By: #### V ITAD, IRON #### [facility] [address] [address] [address] Natasha Celeste HDL NORMAL > or = 60 mg/dl - LO W CARDIOVASCULAR RISK <40 mg/dl - HIGH CARDIOVASCULAR RISK Normal [facility] Comment on above: Performed By: #### V ITAD, IRON #### [facility] [address] [address] [address] Natasha Celeste LDL CALC NORMAL SEE BELOW Normal [facility] Comment on above: Result Comment: <100 mg/dl OPTIMAL 100 - 129 mg/dl NEAR OR ABOVE OPTIMAL 130 - 159 mg/dl BORDERLINE HIGH 160 - 189 mg/dl HIGH >190 mg/dl VERY HIGH Performed By: #### V ITAD, IRON #### [facility] [address] [place] [address] Dr. Natasha Celeste Triglyceride [Mass/Vol] 114 mg/dL Normal <=150 [facility] Comment on above: Performed By: #### V ITAD, IRON #### [facility] [address] [address] [address] Natasha Celeste VLDL CALC 22.8 mg/dL Normal [facility] Comment on above: Performed By: #### V ITAD, IRON #### [facility] [address] [place] [address] Dr. Natasha Celeste PROF 14(COMP METB)on 023 Albumin [Mass/Vol] 3.8 g/dL Normal 3.4-5.0 [facility] Comment on above: Performed By: #### V ITAD, IRON #### [facility] [address] [place] [address] Dr. Natasha Celeste Albumin/Globulin [Mass ratio] 1.0 {ratio} Normal [facility] Comment on above: Performed By: #### V ITAD, IRON #### [facility] [address] [place] [address] Dr. Natasha Celeste ALP [Catalytic activity/Vol] 74 U/L Normal 46-116 [facility] Comment on above: Performed By: #### V ITAD, IRON #### [facility] [address] [place] [address] Dr. Natasha Celeste ALT [Catalytic activity/Vol] 37 U/L Normal 14-59 [facility] Comment on above: Performed By: #### V ITAD, IRON #### [facility] [address] [place] [address] Dr. Natasha Celeste Anion gap [Moles/Vol] 14.7 mmol/L Normal [facility] Comment on above: Performed By: #### V ITAD, IRON #### [facility] [address] [address] [address] Natasha Celeste AST [Catalytic activity/Vol] 34 U/L Normal 15-37 [facility] Comment on above: Performed By: #### V ITAD, IRON #### [facility] [address] [place] [address] Dr. Natasha Celeste Bilirubin [Mass/Vol] 0.5 mg/dL Normal 0.2-1.0 [facility] Comment on above: Performed By: #### V ITAD, IRON #### [facility] [address] [place] [address] Dr. Natasha Celeste Calcium [Mass/Vol] 8.9 mg/dL Normal 8.5-10.1 [facility] Comment on above: Performed By: #### V ITAD, IRON #### [facility] [address] [place] [address] Dr. Natasha Celeste Chloride [Moles/Vol] 103 mmol/L Normal 98-107 [facility] Comment on above: Performed By: #### V ITAD, IRON #### [facility] [address] [place] [address] Dr. Natasha Celeste CO2 [Moles/Vol] 27.4 mmol/L Normal 21.0-32.0 [facility] Comment on above: Performed By: #### V ITAD, IRON #### [facility] [address] [place] [address] Dr. Natasha Celeste Creatinine [Mass/Vol] 0.69 mg/dL Normal 0.55-1.02 [facility] Comment on above: Performed By: #### V ITAD, IRON #### [facility] [address] [place] [address] Dr. Natasha Celeste EGFR-AF KYRGYZ >60 Normal >=60 [facility] Comment on above: Performed By: #### V ITAD, IRON #### [facility] [address] [place] [address] Dr. Natasha Celeste EGFR-NON AF KYRGYZ >60 Normal >=60 [facility] Comment on above: Performed By: #### V ITAD, IRON #### [facility] [address] [address] [address] Natasha Celeste Globulin (S) [Mass/Vol] 3.9 g/dL Normal [facility] Comment on above: Performed By: #### V ITAD, IRON #### [facility] [address] [address] [address] Natasha Celeste Glucose [Mass/Vol] 103 mg/dL Normal 74-106 [facility] Comment on above: Performed By: #### V ITAD, IRON #### [facility] [address] [address] [address] Natasha Celeste Potassium [Moles/Vol] 4.1 mmol/L Normal 3.5-5.1 [facility] Comment on above: Performed By: #### V ITAD, IRON #### [facility] [address] [place] [address] Dr. Natasha Celeste Protein [Mass/Vol] 7.7 g/dL Normal 6.4-8.2 [facility] Comment on above: Performed By: #### V ITAD, IRON #### [facility] [address] [address] [address] Natasha Celeste Sodium [Moles/Vol] 141 mmol/L Normal 136-145 [facility] Comment on above: Performed By: #### V ITAD, IRON #### [facility] [address] [address] [address] Natasha Celeste Urea nitrogen [Mass/Vol] 19.0 mg/dL Critically high 7.0-18.0 [facility] Comment on above: Performed By: #### V ITAD, IRON #### [facility] [address] [address] [address] Natasha Celeste Urea nitrogen/Creatinine [Mass ratio] 27.5 mg/mg Normal [facility] Comment on above: Performed By: #### V ITAD, IRON #### [facility] [address] [place] [address] Dr. Natasha Celeste TSHon 05-23-2022 TSH 0.405 uIU/mL Normal 0.358-3.74 0 [facility] Comment on above: Performed By: #### T 7, TSH, CMP, LIPID #### [facility] [address] [place], [place] [address] Dr. Natasha Celeste VITAMIN D 25 OHon 05-23-2022 VIT D 25-OH 37.2 ng/mL Normal [facility] Comment on above: Performed By: #### V ITAD, IRON #### [facility] [address] [place], [place] [address] Dr. Natasha Celeste VIT D RANGES SEE BELOW Normal [facility] Comment on above: Result Comment: <20 ng/mL Vit D deficient 20 - <30 ng/mL Vit D insufficient 30 - 100 ng/mL Vit D sufficient >100 ng/mL Potential Toxicity Performed By: #### V ITAD, IRON #### [facility] [address] [place], [place] [address] Dr. Natasha Celeste Office Visit (Allergy/Immuno logy)on [...] for SOB and allergies History of Present Bntgnwp33 yo with history of allergy and asthma. [...] TABLET BY MOUTH DAILY Zyrtec-D 5-120 MG [id number] 1 TABLET TWICE DAILY NEEDED. Vitals Vital Signs Recorded: [id number] 01:39PM Svbqjsgawsv56.1 F, Temporal Heart Rate88 Fwesfsjiwtn16 Kdkalwmx315 Zdqzazmgh57 Evfcni774 lb BMI Xatugsxoab86.3 kg/m2 BSA Calculated1.92 Tobacco Usea) Yes O2 Sciwmjsvll59, RA Physical Exam Constitutional General appearance: Well [...] masses. Pulmo (more content not included)... Normal [facility] Tobacco Screening.on [address] [facility] a) Yes [facility] [address] [place] [address] Work Phone: RESPIRATORY ALLERGY PROFILE, IGE,ICon 12-13-2021 ALTERNARIA,IGE,IC 4.04 KU/L Abnormal <0.35 [facility] Comment on above: Result Comment: SEE IMMUNOCAP INTERP.IGE Performed By: #### I CPA2 #### [facility] [address] [place] [id number] JOSE C,WHITE,IGE,IC 0.15 KU/L Normal <0.35 [facility] Comment on above: Result Comment: SEE IMMUNOCAP INTERP.IGE Performed By: #### I CPA2 #### [facility] [address] [place] [id number] ASPERGILUS,IGE,IC 0.30 KU/L Normal <0.35 [facility] Comment on above: Result Comment: SEE IMMUNOCAP INTERP.IGE Performed By: #### I CPA2 #### [facility] [address] [place] [id number] BIRCH,IGE,IC <0.10 Normal <0.35 [facility] Comment on above: Result Comment: SEE IMMUNOCAP INTERP.IGE Performed By: #### I CPA2 #### [facility] [address] [place] [id number] BOX ELDER,IGE,IC 0.56 KU/L Abnormal <0.35 [facility] Comment on above: Result Comment: SEE IMMUNOCAP INTERP.IGE Performed By: #### I CPA2 #### [facility] [address] [place] [id number] CAT EPI./DANDER,IGE,IC 1.97 KU/L Abnormal <0.35 [facility] Comment on above: Result Comment: SEE IMMUNOCAP INTERP.IGE Performed By: #### I CPA2 #### [facility] [address] [place] [id number] CEDAR MTN/JUNIPER,IGE,IC 0.16 KU/L Normal <0.35 [facility] Comment on above: Result Comment: SEE IMMUNOCAP INTERP.IGE Performed By: #### I CPA2 #### [facility] [address] [place] [id number] CLADOSPORIUM HERBARUM IGE,IC 0.38 KU/L Abnormal <0.35 [facility] Comment on above: Result Comment: SEE IMMUNOCAP INTERP.IGE Performed By: #### I CPA2 #### [facility] [address] [place] [id number] COCKROACH,IGE,IC <0.10 Normal <0.35 [facility] Comment on above: Result Comment: SEE IMMUNOCAP INTERP.IGE Performed By: #### I CPA2 #### [facility] [address] [place] [address] COTTONWOOD,IGE,IC <0.10 Normal <0.35 [facility] Comment on above: Result Comment: SEE IMMUNOCAP INTERP.IGE Performed By: #### I CPA2 #### [facility] [address] [place] [address] D.FARINA,IGE,IC <0.10 Normal <0.35 [facility] Comment on above: Result Comment: SEE IMMUNOCAP INTERP.IGE Performed By: #### I CPA2 #### [facility] [address] [place] [address] D.PTERONYSSINUS,IGE,IC <0.10 Normal <0.35 [facility] Comment on above: Result Comment: SEE IMMUNOCAP INTERP.IGE Performed By: #### I CPA2 #### [facility] [address] [place] [address] DOG DANDER IGE,IC 3.91 KU/L Abnormal <0.35 [facility] Comment on above: Result Comment: SEE IMMUNOCAP INTERP.IGE Performed By: #### I CPA2 #### [facility] [address] [facility] [place] [address] ELM,IGE,IC 0.11 KU/L Normal <0.35 [facility] Comment on above: Result Comment: SEE IMMUNOCAP INTERP.IGE Performed By: #### I CPA2 #### [facility] [address] [place] [address] SOUTH SUDANESE PLANTAIN,IGE,IC <0.10 Normal <0.35 [facility] Comment on above: Result Comment: SEE IMMUNOCAP INTERP.IGE Performed By: #### I CPA2 #### [facility] [address] [place] [id number] GRASS,BERMUDA,IGE,IC <0.10 Normal <0.35 [facility] Comment on above: Result Comment: SEE IMMUNOCAP INTERP.IGE Performed By: #### I CPA2 #### [facility] [address] [place] [id number] GRASS,MEERA,IGE,IC <0.10 Normal <0.35 [facility] Comment on above: Result Comment: SEE IMMUNOCAP INTERP.IGE Performed By: #### I CPA2 #### [facility] [address] [place] [id number] GRASS,[place] BLUE,IGE,IC 0.71 KU/L Abnormal <0.35 [facility] Comment on above: Result Comment: SEE IMMUNOCAP INTERP.IGE Performed By: #### I CPA2 #### [facility] [address] [place] [id number] GRASS,TIN,IGE,IC 0.70 KU/L Abnormal <0.35 [facility] Comment on above: Result Comment: SEE IMMUNOCAP INTERP.IGE Performed By: #### I CPA2 #### [facility] [address] [place] [address] IMMUNOCAP IGE 238.0 KU/L High 0.0 - 214.0 [facility] Comment on above: Result Comment: Note : Omalizumab (Xolair, Genentech; humanized IgG1 antihuman IgE Fc) treatment does not significantly interfere with the accuracy of total IgE on the ImmunoCAP (Boombotix) platform. J Allergy Clin Immunol 2006;117:759-66). Allergens, parasitic diseases, smoking, and alcohol consumption have been reported to increase levels of total IgE in serum. Performed By: #### I CPA2 #### [facility] [address] [place] [id number] LAMBS QUARTERS,IGE,IC 0.11 KU/L Normal <0.35 [facility] Comment on above: Result Comment: SEE IMMUNOCAP INTERP.IGE Performed By: #### I CPA2 #### [facility] [address] [place] [id number] MULBERRY, WHITE, IGE,IC <0.10 Normal <0.35 [facility] Comment on above: Result Comment: SEE IMMUNOCAP INTERP.IGE Performed By: #### I CPA2 #### [facility] [address] [place] [id number] OAK,IGE,IC <0.10 Normal <0.35 [facility] Comment on above: Result Comment: SEE IMMUNOCAP INTERP.IGE Performed By: #### I CPA2 #### [facility] [address] [place] [address] PECAN BECKYKORY,IGE,IC 0.17 KU/L Normal <0.35 [facility] Comment on above: Result Comment: SEE IMMUNOCAP INTERP.IGE Performed By: #### I CPA2 #### [facility] [address] [place] [id number] PENICILLIUM,IGE,IC <0.10 Normal <0.35 [facility] Comment on above: Result Comment: SEE IMMUNOCAP INTERP.IGE Performed By: #### I CPA2 #### [facility] [address] [place] [id number] PIGWEED,IGE,IC 0.17 KU/L Normal <0.35 [facility] Comment on above: Result Comment: SEE IMMUNOCAP INTERP.IGE Performed By: #### I CPA2 #### [facility] [address] [place] [address] RAGWEED,SHORT,IGE,IC 0.88 KU/L Abnormal <0.35 [facility] Comment on above: Result Comment: SEE IMMUNOCAP INTERP.IGE Performed By: #### I CPA2 #### [facility] [address] [place] [address] ENGLISH THISTLE,IGE,IC 0.44 KU/L Abnormal <0.35 [facility] Comment on above: Result Comment: SEE IMMUNOCAP INTERP.IGE Performed By: #### I CPA2 #### [facility] [address] [place] [address] SHEEP SORREL,IGE,IC <0.10 Normal <0.35 [facility] Comment on above: Result Comment: SEE IMMUNOCAP INTERP.IGE Performed By: #### I CPA2 #### [facility] [address] [place] [address] SY[place]ORE,MAPLE LEAF IGE,IC 0.12 KU/L Normal <0.35 [facility] Comment on above: Result Comment: SEE IMMUNOCAP INTERP.IGE Performed By: #### I CPA2 #### [facility] [address] [place] [address] WALNUT TREE,IGE,IC 0.13 KU/L Normal <0.35 [facility] Comment on above: Result Comment: SEE IMMUNOCAP INTERP.IGE Performed By: #### I CPA2 #### [facility] [address] [place] [id number] Laboratory - Allergyon 12-12 A. alternata IgE Qn (S) 4.04 {KU/L} Abnormal <0.35 -[facility] [address] Work Phone: Comment on above: SEE IMMUNOCAP INTERP .IGE A. fumigatus IgE Qn (S) 0.30 {KU/L} <0.35 -[facility] [address] Work Phone: Comment on above: SEE IMMUNOCAP INTERP .IGE Namibian house dust mite IgE Qn (S) <0.10 <0.35 -[facility] [address] Work Phone: Comment on above: SEE IMMUNOCAP INTERP .IGE [place] IgE Qn (S) 0.12 {KU/L} <0.35 -[facility]-[place] [address] Work Phone: Comment on above: SEE IMMUNOCAP INTERP .IGE B[place] grass IgE Qn (S) <0.10 <0.35 -[facility] [address] Work Phone: Comment on above: SEE IMMUNOCAP INTERP .IGE Boxelder IgE Qn (S) 0.56 {KU/L} Abnormal <0.35 [facility] [place] [address] Work Phone: Comment on above: SEE IMMUNOCAP INTERP .IGE C. herbarum IgE Qn (S) 0.38 {KU/L} Abnormal <0.35 M [facility] [place] [address] Work Phone: Comment on above: SEE IMMUNOCAP INTERP .IGE [place] IgE Qn (S) 0.13 {KU/L} <0.35 [facility] Work Phone: Comment on above: SEE IMMUNOCAP INTERP .IGE Cat dander IgE Qn (S) 1.97 {KU/L} Abnormal <0.35 [facility] Work Phone: Comment on above: SEE IMMUNOCAP INTERP .IGE Cockroach IgE Qn (S) <0.10 <0.35 [facility] B Work Phone: Comment on above: SEE IMMUNOCAP INTERP .IGE Common Pigweed IgE Qn (S) 0.17 {KU/L} <0.35 [place] [address] Work Phone: Comment on above: SEE IMMUNOCAP INTERP .IGE Aiken IgE Qn (S) <0.10 <0.[address] Work Phone: Comment on above: SEE IMMUNOCAP INTERP .IGE Dog dander IgE Qn (S) 3.91 {KU/L} Abnormal <0.[address] Work Phone: Comment on above: SEE IMMUNOCAP INTERP .IGE Divehi plantain IgE Qn (S) <0.10 <0.[address] Work Phone: Comment on above: SEE IMMUNOCAP INTERP .IGE house dust mite IgE Qn (S) <0.10 <0.35 [place] [address] Work Phone: Comment on above: SEE IMMUNOCAP INTERP .IGE Goosefoot IgE Qn (S) 0.11 {KU/L} <0.35 [place] [address] Work Phone: Comment on above: SEE IMMUNOCAP INTERP .IGE Meera grass IgE Qn (S) <0.10 <0.35 [facility] Work Phone: Comment on above: SEE IMMUNOCAP INTERP .IGE [place] blue grass IgE Qn (S) 0.71 {KU/L} Abnormal <0.35 [facility] Work Phone: Comment on above: SEE IMMUNOCAP INTERP .IGE Mountain Juniper IgE Qn (S) 0.16 {KU/L} <0.35 [facility] Work Phone: Comment on above: SEE IMMUNOCAP INTERP .IGE P. notatum IgE Qn (S) <0.10 <0.35 [facility] Work Phone: Comment on above: SEE IMMUNOCAP INTERP .IGE Pecan or [place]arton Tree IgE Qn (S) 0.17 {KU/L} <0.35 [facility] Work Phone: Comment on above: SEE IMMUNOCAP INTERP .IGE Saltwort IgE Qn (S) 0.44 {KU/L} Abnormal <0.35 [facility] Work Phone: Comment on above: SEE IMMUNOCAP INTERP .IGE Sheep N[place]ito IgE Qn (S) <0.10 <0.35 [facility] Work Phone: Comment on above: SEE IMMUNOCAP INTERP .IGE Silver Birch IgE Qn (S) <0.10 <0.35 [facility] Work Phone: Comment on above: SEE IMMUNOCAP INTERP .IGE Reji IgG Qn (S) 0.70 {KU/L} Abnormal <0.35 [facility] Work Phone: Comment on above: SEE IMMUNOCAP INTERP .IGE Total IgE RAST Qn (S) 238.0 {KU/L} above high threshold See Below [facility] Work Phone: Comment on above: Reference Range: 0.0 - 214.0 Note: Omalizumab (Xolair, GenentJukin Media; humanized IgG1 antihuman IgE Fc) treatment does not significantly interfere with the accuracy of total IgE on the ImmunoCAP (Boombotix) platform. J Allergy Clin Immunol 2006;117:759-66). Allergens, parasitic diseases, smoking, and alcohol consumption have been reported to increase levels of total IgE in serum. White Jose C IgE Qn (S) 0.15 {KU/L} <0.[address] Work Phone: Comment on above: SEE IMMUNOCAP INTERP .IGE [place] IgE Qn (S) 0.11 {KU/L} <0.[address] Work Phone: Comment on above: SEE IMMUNOCAP INTERP .IGE White mulberry IgE Qn (S) <0.10 <0.[address] Work Phone: Comment on above: SEE IMMUNOCAP INTERP .IGE [place] IgE Qn (S) <0.10 <0.[address] Work Phone: Comment on above: SEE IMMUNOCAP INTERP .IGE No Panel Informationon 12-12 SEE COMMENT [address] Work Phone: Comment on above: REFERENCE RANGE (IMM UNOCAP) IGE KU/L CLASS INTERPRETATION < 0.10 0 BELOW DETECTION 0.10- 0.34 0/1 EQUIVOCAL 0.35- 0.69 1 LOW POSITIVE 0.70- 3.49 2 MODERATE POSITIVE 3.50- 17.49 3 HIGH FEMAYXBA13.50- 49 4 VERY HIGH OQFCOMVL35 - 99 5 VERY HIGH POSITIVE >100 6 VERY HIGH POSITIVE 0.88 {KU/L} Abnormal <0.[address] Work Phone: Comment on above: SEE IMMUNOCAP INTERP .IGE Office Visit (Allergy/Immuno logy)on 12-12-2021 Follow-up visit Diagnoses/Problems Assessed Allergies (995.3) (T78.40XA) Itching (698.9) (L29.9) SOB (shortness of breath) on exertion (786.05) (R06.02) Orders Allergies Respiratory Allergy Profile Region 5, IC; Status:Active; Requested for:[id number]; SOB (shortness of breath) on exertion Start: [...] referred by PCP, Dr. Kory Ambriz, in [place], [place] History of Present IllnessPt here to discuss allergy symptoms. Patient has seen an visitor services assistant in the past, last tested in 2010. Patient states seasonal and environmental allergies. Patient t is on Zyrtec-D and Benadryl as needed. Takes Zyrtec D in the morning, last this a.m. She had a shot in September for her allergy which she thinks was a steroid. She did have her Pneumovax a couple months ago. Patient did see an visitor services assistant in early 2000. Was on shots 2-3 yrs. She felt it helped. Never diagnosed with asthma Smokes occasionally. She did smoke regular in the past. Uses daily albuterol. She is worried about dog allergy. She has one dog. Patient is retired as a nurse. She worked at [employer]. Moved into a new home a few [...] TabletTAKE 1 TABLET DAILY. Zyrtec-D 5-120 MG KB58PONW 1 TABLET TWICE DAILY NEEDED. Vitals Vital Signs Recorded: [id number] 10:13AM Rcfhcwbfuna42.1 F, Temporal Heart Rate89 Uuxqsdczopp35 Ijqpnhco397 Irktenkyt49 Height5 ft 8 in Bqgfbk039 lb BMI Xhufwowcte13.3 kg/m2 BSA Calculated1.92 Tobacco Usea) Yes Patient encouraged to stop using tobacco productsYes O2 Zwwjjelatj31, RA Physical Exam Constitutional General appearance: Well [...] of bigg (more content not included)... Normal [facility] RESPIRATORY ALLERGY PROFILE, IGE,ICon 12-12-2021 IMMUNOCAP INTERP.IGE SEE COMMENT Normal [facility] Comment on above: Result Comment: REFE RENCE RANGE (IMMUNOCAP) IGE KU/L CLASS INTERPRETATION < 0.10 0 BELOW DETECTION 0.10- 0.34 0/1 EQUIVOCAL 0.35- 0.69 1 LOW POSITIVE 0.70- 3.49 2 MODERATE POSITIVE 3.50- 17.49 3 HIGH POSITIVE 17.50- 49 4 VERY HIGH POSITIVE 50 - 99 5 VERY HIGH POSITIVE >100 6 VERY HIGH POSITIVE Performed By: #### I CPA2 #### [facility] [address] [place] [address] Tobacco Screening.on 022 Tobacco use status CPHS a) Yes [facility] [address] Work Phone: Tobacco Screening. Yes [facility] [address] Work Phone: MG MAMM SCREEN 3D DEREK CADon 09-30-2021 MG MAMM SCREEN 3D DEREK CAD Patient: ROBBIE KEMP Exam Date: 09/30/2021 : 1955 Gender:F Ordering : DR. YISSEL CARDOZO D.O. Admission #: [id number] Family : Order #: [id number] CLICK HERE TO VIEW EXAM RADIOLOGY REPORT [...] breast cancer at age 51. LOCATION: [facility] BREAST COMPOSITION: Heterogeneously dense,which may obscure [...] MD on 09/30/2021 at 12:05 Normal [facility] Ambulatory Clinical Summaryo n 08-10-2020 Ambulatory Clinical Summary {[id number]}CD:[id number] Normal [facility] General Surgery Office/Clini c Noteon 08-10-2020 [...] 08/10/2020 Family History Family history is negative Normal [facility] Comment on above: Result Comment: Elec tronically Signed By: SANDRA AMARO, Jaden Anaya\.zaira\Date and Time Signed: 08/10/20 15:40 EDT Outside Colonoscopyon 2020 Outside Colonoscopy [id number]:127 Normal [facility] Lab Reportson 08-02-2020 Lab Reports [id number]:127 Normal [facility] Provider Letter FTon 07-28 Provider Letter [facility] (Inserted Image. Un able to display) Kory Ambriz, [address] [place] [address] [place] [address] Re: ROBBIE KEMP Date of : 1955 [...] Sincerely, Jaden Soliz MD General Surgery Normal [facility] Ambulatory Clinical Summaryo n 07-21-2020 Ambulatory Clinical Summary {[id number]}CD:61 4368 Normal [facility] Ambulatory Clinical Summary {[id number]}CD:61 4368 Normal [facility] Vital Signs Date Time Vital Sign Value Performing Clinician Facility 01-17-2024 10:50-0400 Diastolic blood pressure 85 mm[Hg] MD Kory Ambriz Work Phone: [facility] 01-17-2024 10:50-0400 Heart rate 66 /min MD Kory Ambriz Work Phone: [facility] 01-17-2024 10:50-0400 Respiratory rate 16 /min MD Kory Ambriz Work Phone: [facility] 01-17-2024 10:50-0400 SaO2% (BldA) [Mass fraction] 95 % MD Kory Ambriz Work Phone: [facility] 01-17-2024 10:50-0400 Systolic blood pressure 140 mm[Hg] MD Kory Ambriz Work Phone: [facility] 01-17-2024 08:54-0400 Body height 170.18 cm MD Kory Ambriz Work Phone: [facility] 01-17-2024 08:54-0400 Body weight 80.28 kg MD Kory Ambriz Work Phone: [facility] 12-28-2023 09:37-0400 Body height 171.45 cm MD Kory Ambriz Work Phone: [facility] 12-28-2023 09:37-0400 Body mass index (BMI) [Ratio] 27 kg/m2 MD Kory Ambriz Work Phone: [facility] 12-28-2023 09:37-0400 Body weight 79.37 kg MD Kory Ambriz Work Phone: [facility] 11-20-2023 09:57-0400 Body height 170.18 cm MD Kory Ambriz Work Phone: [facility] 11-20-2023 09:57-0400 Body mass index (BMI) [Ratio] 28 kg/m2 MD Kory Ambriz Work Phone: [facility] 11-20-2023 09:57-0400 Body weight 81.19 kg MD Kory Ambriz Work Phone: [facility] 11-20-2023 09:57-0400 Diastolic blood pressure 95 mm[Hg] MD Kory Ambriz Work Phone: [facility] 11-20-2023 09:57-0400 Heart rate 86 /min MD Kory Ambriz Work Phone: [facility] 11-20-2023 09:57-0400 SaO2% (BldA) [Mass fraction] 98 % MD Kory Ambriz Work Phone: [facility] 11-20-2023 09:57-0400 Systolic blood pressure 135 mm[Hg] MD Kory Ambriz Work Phone: [facility] 08-16-2023 13:43-0400 Body height 170.18 cm MD Kory Ambriz Work Phone: [facility] 08-16-2023 13:43-0400 Body mass index (BMI) [Ratio] 27.6 kg/m2 MD Kory Ambriz Work Phone: [facility] 08-16-2023 13:43-0400 Body weight 79.83 kg MD Kory Ambriz Work Phone: [facility] 08-16-2023 13:43-0400 Diastolic blood pressure 92 mm[Hg] MD Kory Ambriz Work Phone: [facility] 08-16-2023 13:43-0400 Heart rate 84 /min MD Kory Ambriz Work Phone: [facility] 08-16-2023 13:43-0400 SaO2% (BldA) [Mass fraction] 98 % MD Kory Ambriz Work Phone: [facility] 08-16-2023 13:43-0400 Systolic blood pressure 138 mm[Hg] MD Kory Ambriz Work Phone: [facility] 01-10-2022 13:39-0400 Body mass index (BMI) [Ratio] 26.3 kg/m2 Referring Provider Unknown YP[facility]FRZN[facility] [place] [address] Work Phone: 01-10-2022 13:39-0400 Body surface area Derived from formula 1.92 m2 Referring Provider Unknown SA-IGOW-Lphxb [place] [address] Work Phone: 01-10-2022 13:39-0400 Body temperature 98.1 [degF] Referring Provider Unknown SW-AYEK-Vguyq [place] [address] Work Phone: 01-10-2022 13:39-0400 Body weight 78.47 kg Referring Provider Unknown RV-OAWC-Sdbcl [place] [address] Work Phone: 01-10-2022 13:39-0400 Diastolic blood pressure 66 mm[Hg] Referring Provider Unknown HA-TBVQ-Lzxfn [place] [address] Work Phone: 01-10-2022 13:39-0400 Heart rate 88 /min Referring Provider Unknown YC-WYWP-I[facility] [place] [address] Work Phone: 01-10-2022 13:39-0400 Respiratory rate 16 /min Referring Provider Unknown OP-BMOX-Gddfq [place] [address] Work Phone: 01-10-2022 13:39-0400 SaO2% (BldA) [Mass fraction] 98 % Referring Provider Unknown WZ-GRAV-Qngim [place] [address] Work Phone: 01-10-2022 13:39-0400 Systolic blood pressure 128 mm[Hg] Referring Provider Unknown ZB-CRUT-Dsgjl [place] [address] Work Phone: 12-12-2021 10:13-0400 Body height 172.72 cm Referring Provider Unknown EB-GPRT-Iormm [place] [address] Work Phone: 12-12-2021 10:13-0400 Body mass index (BMI) [Ratio] 26.3 kg/m2 Referring Provider Unknown LO-GNPG-Aj[facility] [place] [address] Work Phone: 12-12-2021 10:13-0400 Body surface area Derived from formula 1.92 m2 Referring Provider Unknown ZK-SPIH-Ffpyl [place] [address] Work Phone: 12-12-2021 10:13-0400 Body temperature 98.1 [degF] Referring Provider Unknown AB-BMGH-Arcpx [facility] [address] Work Phone: 12-12-2021 10:13-0400 Body weight 78.47 kg Referring Provider Unknown ST-KQOO-Zlaqt [place] [address] Work Phone: 12-12-2021 10:13-0400 Diastolic blood pressure 84 mm[Hg] Referring Provider Unknown BM-ZMVE-Kbcpe [place] [address] Work Phone: 12-12-2021 10:13-0400 Heart rate 89 /min Referring Provider Unknown CQ-HUCH-Usegp [facility] [address] Work Phone: 12-12-2021 10:13-0400 Respiratory rate 17 /min Referring Provider Unknown KA-TWHW-Buggw [place] [address] Work Phone: 12-12-2021 10:13-0400 SaO2% (BldA) [Mass fraction] 99 % Referring Provider Unknown OM-WFLB-Npraz [place] [address] Work Phone: 12-12-2021 10:13-0400 Systolic blood pressure 144 mm[Hg] Referring Provider Unknown YY-KINT-Gmkjt [address] Work Phone: 01-24-2021 09:45-0400 Body height Arvind Frank Other [facility] Other 01-24-2021 09:45-0400 Body mass index (BMI) [Ratio] 23.57 kg/m2 Arvind Trevino Other [facility] Other 01-24-2021 09:45-0400 Body weight 70.31 kg Arvind Trevino Other [facility] Other 01-07-2021 10:30-0400 Body height Arvind Trevino Other [facility] Other 01-07-2021 10:30-0400 Body mass index (BMI) [Ratio] 23.57 kg/m2 Arvind Trevino Other [facility] Other 01-07-2021 10:30-0400 Body weight 70.31 kg Arvind Trevino Other [facility] Other 01-07-2021 10:30-0400 Diastolic blood pressure 89 mm[Hg] Arvind Trevino Other [facility] Other 01-07-2021 10:30-0400 Systolic blood pressure 117 mm[Hg] Arvind Trevino Other [facility] Other Encounters Encounter Date Encounter Type Care Provider Facility Start: 01-17-2024 Non-patient / Non-visit MD Willa Ambriz Work Phone: [facility] Work Phone: Start: 01-17-2024 End: 01-17-2024 Admission to same day surgery center MD Kory Ambriz Work Phone: [facility] Work Phone: Start: 01-17-2024 End: 01-17-2024 ambulatory MD Kory Ambriz Work Phone: [facility] Work Phone: Start: 12-31-2023 End: 12-31-2023 Patient encounter procedure MD Kory Ambriz Work Phone: [facility] [place] Work Phone: Start: 12-31-2023 End: 12-31-2023 ambulatory MD Kory Ambriz Work Phone: [facility] Work Phone: Start: 12-28-2023 End: 12-28-2023 ambulatory MD Kory Ambriz Work Phone: [facility] Work Phone: Start: 12-28-2023 End: 12-28-2023 Patient encounter procedure MD Kory Ambriz Work Phone: [facility] Work Phone: Start: 11-20-2023 End: 11-20-2023 ambulatory MD Kory Ambriz Work Phone: [facility] Work Phone: Start: 11-20-2023 End: 11-20-2023 Patient encounter procedure MD Kory Ambriz Work Phone: [facility] Work Phone: Start: 10-23-2023 End: 10-23-2023 Patient encounter procedure MD Kory Ambriz Work Phone: [facility] [address] Work Phone: Start: 10-23-2023 End: 10-23-2023 ambulatory MD Kory Ambriz Work Phone: [facility] Work Phone: Start: 10-18-2023 End: 10-18-2023 ambulatory NATALIE L BECKHAM Not Available Start: 10-16-2023 End: 10-16-2023 ambulatory NATALIE L BECKHAM Not Available Start: 10-11-2023 End: 10-11-2023 ambulatory NATALIE L BECKHAM Not Available Start: 10-09-2023 End: 10-09-2023 ambulatory ALLYSSA WENGERD Not Available Start: 10-04-2023 End: 10-04-2023 ambulatory ALLYSSA WENGERD Not Available Start: 10-04-2023 End: 10-04-2023 ambulatory YISSEL CARDOZO Not Available Start: 10-03-2023 End: 10-03-2023 ambulatory MD Kory Ambriz Work Phone: [facility] Work Phone: Start: 10-03-2023 End: 10-03-2023 Patient encounter procedure MD Kory Ambriz Work Phone: [facility] Work Phone: Start: 10-02-2023 End: 10-02-2023 ambulatory ALLYSSA WENGERD Not Available Start: 09-27-2023 End: 09-27-2023 ambulatory NATALIE L BECKHAM Not Available Start: 09-25-2023 End: 09-25-2023 ambulatory NATALIE L BECKHAM Not Available Start: 09-23-2023 End: 09-23-2023 ambulatory MARY SEALS Not Available Start: 09-20-2023 End: 09-20-2023 ambulatory NATALIE L BECKHAM Not Available Start: 09-18-2023 End: 09-18-2023 ambulatory NATALIE L BECKHAM Not Available Start: 09-14-2023 End: 09-14-2023 ambulatory NATALIE L BECKHAM Not Available Start: 09-11-2023 End: 09-11-2023 ambulatory ALLYSSA WENGERD Not Available Start: 09-06-2023 End: 09-06-2023 ambulatory NATALIE L BECKHAM Not Available Start: 09-06-2023 Non-patient / Non-visit MD Willa Ambriz Work Phone: [facility] Work Phone: Start: 09-04-2023 End: 09-04-2023 Patient encounter procedure MD Kory Ambriz Work Phone: [facility] Work Phone: Start: 09-04-2023 End: 09-04-2023 ambulatory Sae Rodríguez Facility:[facility] Start: 09-04-2023 End: 09-04-2023 ambulatory NATALIE L BECKHAM Not Available Start: 08-28-2023 End: 08-28-2023 ambulatory NATALIE L BECKHAM Not Available Start: 08-16-2023 End: 08-16-2023 ambulatory MD Kory Ambriz Work Phone: [facility] Work Phone: Start: 08-16-2023 End: 08-16-2023 Patient encounter procedure MD Kory Ambriz Work Phone: [facility] Work Phone: Start: 08-15-2023 End: 08-15-2023 ambulatory NATALIE L BECKHAM Not Available Start: 08-15-2023 End: 08-15-2023 ambulatory MD Kory Ambriz Work Phone: [facility] Work Phone: Start: 08-15-2023 End: 08-15-2023 Patient encounter procedure MD Kory Ambriz Work Phone: [facility] Work Phone: Start: 08-13-2023 End: 08-13-2023 ambulatory ALLYSSA WENGERD Not Available Start: 08-10-2023 End: 08-10-2023 ambulatory ALLYSSA WENGERD Not Available Start: 08-06-2023 End: 08-06-2023 ambulatory ALLYSSA WENGERD Not Available Start: 08-03-2023 End: 08-03-2023 ambulatory NATALIE L BECKHAM Not Available Start: 08-01-2023 End: 08-01-2023 ambulatory MD Kory Ambriz Work Phone: [facility] Work Phone: Start: 08-01-2023 End: 08-01-2023 Patient encounter procedure MD Kory Ambriz Work Phone: [facility] Work Phone: Start: 08-01-2023 End: 08-01-2023 Patient encounter [facility] Start: 08-01-2023 End: 08-01-2023 ambulatory MD Kory Ambriz Work Phone: [facility] Work Phone: Start: 07-27-2023 End: [...] Not Available Start: 03-29-2023 End: 03-29-[address] [facility] Start: 03-29-2023 End: 03-29-2023 Encounter for other preprocedural examination [facility] Start: 02-26-2023 End: 02-26-2023 [facility] Start: 07-10-2022 End: 07-11-[address] KORY AMBRIZ . Facility:[facility] Start: 06-27-2022 End: 06-28-[address] KORY AMBRIZ . Facility:[facility] Start: 05-23-2022 End: 05-24-[address] KORY AMBRIZ . Facility:[facility] Start: 01-10-2022 Office outpatient vi sit 15 minutes Referring Provider Unknown JB-DRID[facility] [place] [address] Work Phone: Start: 01-10-2022 ambulatory PCP UNKNOWN Facility:[id number] Start: 12-12-2021 Office outpatient ne w 45 minutes Referring Provider Unknown EU-CNHD-Wcfw[facility] [address] Work Phone: Start: 12-12-2021 ambulatory PCP UNKNOWN Facility:[id number] Start: 11-15-2021 End: 11-16-2021 ambulatory LEILA MARTIN Facility:[facility] Start: 11-03-2021 End: 11-03-2021 Discharged Recurring MD Kory Ambriz Work Phone: [facility] [place] Start: 10-18-2021 End: 10-19-2021 ambulatory LEILA ALCAZAREN Facility:[facility] Start: 09-30-2021 End: 10-01-2021 ambulatory YISSELYUE CARDOZO Facility:[facility] Start: 08-03-2021 End: 08-03-2021 ambulatory Arvind Trevino Other [facility] Other Start: 08-03-2021 Telephone encounter [facility] Start: 07-06-2021 End: 07-06-2021 ambulatory Arvind Trevino Other [facility] Other Start: 07-06-2021 Office outpatient vi sit 15 minutes Arvind Trevino [facility] Start: 03-04-2021 End: 03-04-2021 ambulatory Arvind Frank Other [facility] Other Start: 03-04-2021 Telephone encounter Arvind PORTER G [facility] Start: 02-21-2021 Postop follow up vis it related to original px Arvind Frank [facility] Start: 02-07-2021 Telephone encounter Arvind PORTER G [facility] Start: 01-24-2021 Postop follow up vis it related to original px Arvind Frank [facility] Start: 01-07-2021 End: 01-07-2021 ambulatory Arvind Trevino Other [facility] Other Start: 01-07-2021 Encounter for other preprocedural examination Arvind Trevino [facility] Start: 01-07-2021 Office outpatient vi sit 25 minutes Arvind Trevino [facility] Start: 10-18-2017 Patient encounter UNABLE TO VALIDATE [facility] Start: 08-04-2017 End: 08-04-2017 Patient encounter [facility] Facility:[facility] Procedure Procedure Detail Performing Clinician Start: 01-17-2024 Esophagogastroduodenoscopy MD Kory Ambriz Work Phone: Start: 10-03-2023 Plain X-ray of right hand [...] Treatment Date Care Activity Detail Author Start: 01-17-2024 [facility] Start: 12-31-2023 Cryptosporidium sp Ag [Presence] in Stool by Immunoassay [facility] Start: 12-31-2023 Elastase.pancreatic [Mass/mass] in Stool [facility] Start: 12-31-2023 Giardia lamblia Ag [Presence] in Stool by Immunoassay [facility] Start: 12-31-2023 End: 12-31-2023 [facility] Start: 10-23-2023 [facility] Start: 10-03-2023 Plain X-ray of right hand XR hand RT min 3V* [facility] Start: 10-03-2023 XR Hand - right GE [address] [facility] Start: 08-01-2023 Plain X-ray of left hip XR hip LT min 2V(w/wo pelvis)* [facility] Start: 08-01-2023 XR Hip - left 2 Views [facility] Start: 07-11-2022 FUV, Provider: La Nena Miguel, Status: Pen, Time: 2:10 PM FUV, Provider: La Nena Miguel, Status: Pen, Time: 2:10 PM [place] [id number] Work Phone: Elastase.pancreatic [Mass/mass] in Stool [facility] Endomysial antibody IgA level [facility] Gliadin peptide IgA Ab [Units/volume] in Serum [facility] Gliadin peptide IgG Ab [Units/volume] in Serum [facility] Homogenous nuclear A b pattern [Titer] in Serum [facility] IgA [Mass/volume] in Serum or Plasma [facility] Nuclear Ab [Titer] in Serum [facility] Patient Education Hemorrhoids (D C) Gastritis (DC) Know your Meds [facility] Work Phone: Tissue transglutamin ase IgA Ab [Units/volume] in Serum [facility] Tissue transglutamin ase IgG Ab [Units/volume] in Serum [facility] Immunizations Immunization Date Immunization Notes Care Provider [facility] 08-27-2020 Do not use COVID-19 Pfizer 2 dose Arvind Trevino Other [facility] 08-06-2020 Do not use COVID-19 Pfizer 2 dose Arvind Trevino Other [facility] Payers Date Payer Category Payer Self-pay [id number] 2020 Unknown [id number] 2. 16.840.1.351544.19 2020 Unknown [id number] 2.16.840 .1.002799.19 1955 Unknown [id number] 2.16.840.1.173843.3.579.2.356 1955 Unknown [id number] 2.16.840.1.514208.3.579.2.356 1955 Unknown [id number] 2.16.840.1.143434.3.579.2.356 1955 Unknown [id number] 2.16.840.1.780845.3.579.2.593 1956 Unknown [id number] 2.16.840.1.219318.3.579.2.593 1955 Unknown [id number] 2.16.840.1.409370.3.579.2.593 1956 Unknown [id number] 2.16.840.1.381475.3.579.2.593 1956 Unknown [id number] 2.16.840.1.025484.3.579.2.593 1956 Unknown [id number] 2.16.840.1.564953.3.579.2.593 1956 Unknown [id number] 2.16.840.1.550056.3.579.2.1259 1956 Unknown [id number] 2.16.840.1.392321.3.579.2.1259 1956 Unknown [id number] 2.16.840.1.508252.3.579.2.9 1956 Unknown [id number] 2.16.840.1.046366.3.579.2.1258 1956 Unknown [id number] 2.16.840.1.184890.3.579.2.1258 1956 Unknown [id number] 2.16.840.1.428876.3.579.2.1258 1956 Unknown [id number] 2.16.840.1.455622.3.579.2.1258 1956 Unknown [id number] 2.16.840.1.085190.3.579.2.1258 1956 Unknown [id number] 2.16.840.1.802628.3.579.2.1258 1956 Unknown [id number] 2.16.840.1.833891.3.579.2.1258 1956 Unknown [id number] 2.16.840.1.699161.3.579.2.1258 1956 Unknown [id number] 2.16.840.1.652049.3.579.2.1258 1956 Unknown [id number] 2.16.840.1.148945.3.579.2.1258 1956 Unknown [id number] 2.16.840.1.195509.3.579.2.1258 1956 Unknown [id number] 2.16.840.1.918764.3.579.2.1258 1956 Unknown [id number] 2.16.840.1.575051.3.579.2.1258 1956 Unknown [id number] 2.16.840.1.816444.3.579.2.1258 1956 Unknown [id number] 2.16.840.1.240955.3.579.2.1258 1956 Unknown [id number] 2.16.840.1.645299.3.579.2.1259 1956 Unknown [id number] 2.16.840.1.242299.3.579.2.1258 1956 Unknown [id number] 2.16.840.1.736116.3.579.2.1258 1956 Unknown [id number] 2.16.840.1.762661.3.579.2.1258 1956 Unknown [id number] 2.16.840.1.632984.3.579.2.1258 1956 Unknown [id number] 2.16.840.1.717610.3.579.2.1258 1956 Unknown [id number] 2.16.840.1.168484.3.579.2.1258 1956 Unknown [id number] 2.16.840.1.186447.3.579.2.1258 1956 Unknown [id number] 2.16.840.1.225710.3.579.2.1258 1956 Unknown [id number] 2.16.840.1.589847.3.579.2.1258 1956 Unknown [id number] 2.16.840.1.270683.3.579.2.1258 1956 Unknown [id number] 2.16.840.1.822248.3.579.2.1258 1956 Unknown [id number] 2.16.840.1.422340.3.579.2.1258 1956 Unknown [id number] 2.16.840.1.619901.3.579.2.1258 1956 Unknown [id number] 2.16.840.1.048439.3.579.2.1258 1956 Unknown [id number] 2.16.840.1.810221.3.579.2.1256 Unknown [id number] 2.16.840.1.516358.3.579.2.1259 1956 Unknown [id number] 2.16.840.1.434205.3.579.2.9 1956 Unknown [id number] 2.16.840.1.928040.3.579.2.1258 1956 Unknown [id number] 2.16.840.1.305009.3.579.2.1258 1956 Unknown [id number] 2.16.840.1.002431.3.579.2.9 1956 Unknown [id number] 2.16.840.1.080290.3.579.2.1259 Medicare Medicare Medicare [id number] Unknown Unknown 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[place] [id number] Unknown [id number] 2.16.840.1.776055.3.579.2.531 Unknown [id number] 2.16.840.1.660458.3.579.2.531 Unknown [id number] 2.16.840.1.171760.3.579.2.531 Unknown [id number] 2.16.840.1.916109.3.579.2.531 Unknown [id number] 2.16.840.1.364280.3.579.2.531 Unknown [id number] 2.16.840.1.537913.3.579.2.531 Social History Date Type Detail Facility Unknown if ever smoked [facility] Other Sex Assigned At Sex Assigned At Bir th [facility] Other Cigarette smoker Cigarette smoker [facility] -[address] Work Phone: Start: 01-25-2021 End: 05-16-2023 Tobacco smoking status NHIS Smoker (finding) [facility] Start: 1955 Sex Assigned At Female F [facility] Start: 01-17-2024 Tobacco smoking stat us NDIS Ex-smoker (finding) [facility] Medical Equipment Procedure Code Equipment Code Equipment Origin al Text Equipment Identifier Dates 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 Coated hip femur prosthesis, modular ()[id number] FDA Start: 01-11-2021 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 Acetabular shell ()[id number] FDA Start: 01-11-2021 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 Non-constrained polyethylene acetabular liner ()[id number] FDA Start: 01-11-2021 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 Ceramic femoral head prosthesis ()[id number] FDA Start: 01-11-2021 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 Orthopaedic bone screw, non-bioabsorbable, sterile ()[id number] FDA Start: 01-11-2021 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 Orthopaedic bone screw, non-bioabsorbable, sterile ()[id number] FDA Start: 01-11-2021 Goals Date Patient Goal Desired Activity /State Clinical Notes 07-21-2020 to 01-17-2024 Note Date & Type Note Facility 01-17-2024 Procedure note [facility] 01-17-2024 Procedure note [facility] 03-29-2023 Note [facility] Cardiology Clinic Note Chief Complaint: Patient [...] Hyperlipidemia, Hypertension, Hypothyroidism, and RA (rheumatoid arthritis) ([facility]). Surgical History He has a past surgical [...] and blood pressu (more content not included)... [facility] 02-26-2023 Note 176#New patient here to establish care. Ref from Dr. Hoy for hypertension. She has upcoming foot surgery and wants to make sure her BP is under control prior to this. She sometimes gets a funny feeling in her chest when BP is elevated. Gets SOB w/ exertion and palpitations intermittently. Review of Systems Cardiovascular: Positive for dyspnea on exertion and palpitations. All other systems reviewed and are negative. [facility] 02-26-2023 Note Cardiovascular Medic [facility] SUBJECTIVE No chief complaint on file. [...] disease) Hyperlipidemia Hypertension Hypothyroidism RA (rheumatoid arthritis) ([facility]) Past Surgical History: Procedure Laterality Date BREAST [...] repeat labs thro (more content not included)... [facility] 12-13-2021 History of Present illness Narrative 66 yo with history of allergy and asthma. Symptoms are improved on Advair 250 BID with rare albuterol use. She has grass, tree and ragweed as well as pet allergy on immunocap 12/13/21. [id number] Work Phone: 11-15-2021 Note PROCEDURE: XR ANKLE [...] authenticated by: ELVA MELISSA Date: 2021-11-15 18:44 [facility] 10-19-2021 Note PROCEDURE: XR FOOT R [...] by: SAE LOPEZ Date: 2021-10-19 07:23 [facility] 09-21-2021 History of Present illness Narrative Pt here to discuss allergy symptoms. Patient has seen an visitor services assistant in the past, last tested in 2010. Patient states seasonal and environmental allergies. Patient t is on Zyrtec-D and Benadryl as needed. Takes Zyrtec D in the morning, last this a.m.She had a shot in September for her allergy which she thinks was a steroid.She did have her Pneumovax a couple months ago.Patient did see an visitor services assistant in early 2000. Was on shots 2-3 yrs. She felt it helped.Never diagnosed with asthmaSmokes occasionally. She did smoke regular in the past.Uses daily albuterol.She is worried about dog allergy. She has one dog.Patient is retired as a nurse.She worked at [employer].Moved into a new home a few years ago. Had Covid in 2019, and still feels she has some residula taste and smell issues. [id number] Work Phone: 07-06-2021 Evaluation note [...] tolerated. Call with any questions or concerns. [facility] 11-01-2021 Evaluation note* Encounter Date Diagnosis [...] if she develops pain or further deformity [facility] 10-18-2021 Evaluation note* Encounter Date Diagnosis Assessment Notes Treatment Notes Treatment Clinical Notes Jan, Primary osteoarthritis of left hip (ICD-10 - M16.12) [facility] 10-04-2021 Evaluation note* Encounter Date Diagnosis [...] to call with any questions or concerns. [facility] 09-17-2021 Evaluation note* Encounter Date Diagnosis [...] was discussed. I have advised against the long term care social worker use of narcotic pain medication. I have [...] with tobacco use. Tobacco cessation program at [facility] has been recommended and offered. This discussion was limited to 5 minutes. [facility] 03-31-[address] Ambriz referral for ongoing abd pain had liver,pancreas & GB US all were ok still having pain diarrhea is off and on had colonoscopy & EGD at [facility] aprox 6 years ago History of Present [...] 800 mg Tab, 80 (more content not included)...[facility]Result Comment: Electronically Signed By: SANDRA AMARO, Jaden Palmer\Date and Time Signed: 07/21/20 15:25 [id number] NoteUpper Endoscopy, Adult Upper endoscopy is a [...] including vitamins, herbs, eye drops, creams, and vpqa-gen-qkbypef medicines. ? Any problems you or family [...] tells you to take them. ? Taking fept-enn-rgeiamu medicines, vitamins, herbs, and supplements. General instructions [...] Document Revised: 10/03/19 (more content not included)...[facility] InformationNort [facility] Other Evaluation noteNo assessment information available [facility] Work Phone: Evaluation note* Diagnosis Onset Date Resolution Status History of total left hip arthroplasty acute Osteoarthritis of left hip a cute Trochanteric bursitis, left hip acute [facility] Work Phone: evaluation note* Diagnosis Onset Date Resolution Status History of total left hip arthroplasty acute Osteoarthritis of left hip a cute Trochanteric bursitis, left hip acute History of total left hip arthroplasty acute Osteoarthritis of left hip a cute Trochanteric bursitis, left hip acute [facility] Work Phone: evaluation note* Diagnosis Onset Date Resolution Status History of total left hip arthroplasty acute Osteoarthritis of left hip a cute Trochanteric bursitis, left hip acute History of total left hip arthroplasty acute Osteoarthritis of left hip a cute Trochanteric bursitis, left hip acute Generalized anxiety disorder acute GERD (gastroesophageal reflux disease) acute Hypertension acute Hypothyroid acute Sleep apnea acute [facility] Work Phone: evaluation note* Diagnosis Onset Date Resolution Status History [...] hand acute Trochanteric bursitis, left hip acute [facility] Work Phone: Evaluation note* Diagnosis Onset Date Resolution Status Finger mass, right acute History of total left hip arthroplasty acute Osteoarthritis of left hip a cute Primary osteoarthritis, right hand acute Trochanteric bursitis, left hip acute GERD (gastroesophageal reflux disease) acute Hypertension acute Hypothyroid acute Sleep apnea acute [facility] Work Phone: evaluation note* Diagnosis Onset Date Resolution Status Finger mass, right acute History of total left hip arthroplasty acute Osteoarthritis of left hip a cute Primary osteoarthritis, right hand acute Trochanteric bursitis, left hip acute GERD (gastroesophageal reflux disease) acute Hypertension acute Hypothyroid acute Sleep apnea acute Chronic diarrhea acute [facility] Work Phone: Evaluation note* Diagnosis Onset Date Resolution Status GERD (gastroesophageal reflux disease) acute Hypertension acute Hypothyroid acute Sleep apnea acute Chronic diarrhea acute [facility] Work Phone: History and physical note Author Gisselle Powell [facility] January 17, 2024 9:35am Note Date/Time January 17, 2024 9:35am [facility] [address] [place] [address] Gastroenterology H&P Signed Patient: Robbie Kemp MR#: [id number] : 1955 Acct:[id number] Age/Sex: 68 / F Adm Date: 4 Loc: Room: Type: [facility] Attending Dr: Gisselle Powell DO Copies to: Gisselle Powell, DO Kory Ambriz MD~ Date of Service: 01/17/2024 HISTORY & PHYSICAL: Patient's history with special attention to the cardiovascular, pulmonary systems and the current problem was reviewed with the patient immediately prior to the procedure. Present medications and doses reviewed in the EMR. Allergies and pertinent laboratory tests were also reviewedat this time in the EMR. The physical examination, as below, was then performed. Indication, assessment and HPI: 68 y/o F who presents for EGD/colonoscopy for diarrhea and positive celiac serology. Her last colonoscopy was 4 years. Family history of GI malignancy? No PHYSICAL EXAMINATION General appearance: cooperative, NAD Skin: No jaundice, no rash or lesions Head: NCAT Eyes: Anicteric Neck: Supple Lungs: Normal respiratory effort, no use of accessory muscles Abdomen: Soft, nondistended Neuro: No focal deficits, Ox3. REVIEW OF SYSTEMS Constitutional: Denies malaise, fevers Cardiovascular: Denies chest pain, palpitations Respiratory: Denies shortness of breath, wheezing Gastrointestinal: As per HPI Genitourinary: Denies dysuria, polyuria Musculoskeletal: Denies joint swelling, joint stiffness Neurological: Denies confusion, numbness, tingling Endocrine: Denies fatigue Written informed consent obtained from the patient. Risks (including but not limited to perforation, infection, bloating, bleeding, need for emergent surgeryand loss of life), benefits and alternatives explained and questions answered. The patient verbalized understanding. Based on history patient is an appropriate candidate for the procedure. Gisselle Powell DO Present medication and doses reviewed in the EMR Documented By: Gisselle Powell DO 01/17/24 0933 Signed By: <Electronically signed by Gisselle Powell DO> 01/17/24 0935 [facility] Work Phone: [facility] general Narrative - Reported* Type Description Date Medical History htn Medical History high blood pressure Medical History asthma Medical History Hypothyroidism Medical History Arthritis Surgical History HYSTERECTOMY Surgical History APENDIX Surgical History colonoscopy Surgical History right post tibal repair Surgical History pelvic organ prolapse repair Surgical History right knee biopsy Surgical History breast biopsy Surgical History left total hip arthroplasty 12/23 05/13 [facility] general Narrative - Reported* Type Description Date [...] 12/23 05/13 Surgical History Right Foot/Ankle 2014 [facility] Discharge instructions Additional Instructions DISCHARGE INSTRUCTIONS FOR UPPER ENDOSCOPY WHAT TO EXPECT: - You may feel full, gassy or cramping after your procedure. In some cases, this may be from a few hours to a day. Walking may help relieve the discomfort. - Your throat may feel sore today from the scope that the doctor passed through your throat to visualize your stomach. Take a throat lozenge or suck on ice to ease the discomfort. - You may notice some streaks of blood in your sputum if the doctor has taken a biopsy. - You should begin to recover from anesthesia within 1 hour of the procedure, however may feel groggy for the next 24 hours. DO's AND DON'Ts: - Call your doctor right away if you have a hard abdomen, severe pain, vomiting or if you cough up large amounts of blood. - Call your doctor if you develop any rashes, hives or difficulty breathing. - If you take 81 mg aspirin for your heart it is safe to resume this medication. - If you take other blood thinner medications your doctor will instruct you when these can safely be resumed. - Do NOT drive for 24 hours. - Do NOT operate machinery such as power tools, [employer] mowers, snow blowers, sewing machines, etc. for 24 hours. - Avoid alcoholic beverages and drugs for allergies, nerves, or sleep. - Do NOT stay alone. Do NOT leave your child unattended. - Do NOT make important personal or business decisions or sign any legal documents. - Eat solid foods and drink liquids in smaller amounts than usual until normal appetite returns. If you should experience an upset stomach, liquids high in sugar content (soda, Gerard-Aid, non-acid juices) are recommended. - Do NOT smoke. - Do take it easy today. You need not stay in bed, but avoid strenuous activities such as jogging or working out. DISCHARGE INSTRUCTIONS FOR COLONOSCOPY WHAT TO EXPECT: - You may feel full, gassy or cramping after your procedure. In some cases, this may be from a few hours to a day. Walking may help relieve the discomfort. - If you have polyp(s) removed you may note some minor bloody discharge after your first bowel movements. - You should begin to recover from anesthesia within 1 hour of the procedure, however may feel groggy for the next 24 hours. DO's AND DON'Ts: - Call your doctor right away if you have a hard abdomen, sever pain, are passing lots of bright red blood or clots. - Call your doctor if you develop any rashes, hives or difficulty breathing. - Let your doctor know if you have not had a bowel movement by 3 days after your procedure. - If you take 81 mg aspirin for your heart it is safe to resume this medication. - If you take other blood thinner medications your doctor will instruct you when these can safely be resumed. - Do NOT drive for 24 hours. - Do NOT operate machinery such as power tools, [employer] mowers, snow blowers, sewing machines, etc. for 24 hours. - Avoid alcoholic beverages and drugs for allergies, nerves, or sleep. - Do NOT stay alone. Do NOT leave your child unattended. - Do NOT make important personal or business decisions or sign any legal documents. - Eat solid foods and drink liquids in smaller amounts than usual until normal appetite returns. If you should experience an upset stomach, liquids high in sugar content (soda, Gerard-Aid, non-acid juices) are recommended. - You can resume normal activities tomorrow. FOLLOW UP & RECOMMENDATIONS: -Please call the office and make a follow up appointment to see me in 3-4 months if you do not have an appointment scheduled. -Notify the doctor if you have any problems. -Repeat colonoscopy in 7 years. -Follow up with PCP. - Office number [phone]. [facility] Work Phone: Summary Purpose Family History No Family History [...] replacement Unknown father Unknown Not Specified Unknown Relationship Condition Age at Onset Recorded Date/T refugio father Hypertension Unknown Kidney disorder Unknown mother Arthritis Unknown Hypertension Unknown sister History of hip replacement Unknown father Unknown mother Unknown Advance Directives No Advanced Directives Records Found Advance Directive Response Recorded Date/ Time Advance Directives No December 01, 2020 10:50am Advance Directive Response Recorded Date/ Time Advance Directives No May 16, 2023 7:15pm Chief Complaint New patient here to discuss allergies, referred by PCP, Dr. Kory Ambriz, in [facility]/u for SOB and allergies Chief Complaint [...] osteoarthritis, right hand Trochanteric bursitis, left hip Chief Complaint Unspecified sleep ap yesy APNEA 6-8 WEEKS R22.31 - Localized swelling, mass and lump, right M15.0 Z79.899 31-90 Visit Reason for Visit Finger mass, right History of total left hip arthroplasty Osteoarthritis of left hip Primary osteoarthritis, right hand Trochanteric bursitis, left hip GERD (gastroesophageal reflux disease) Hypertension Hypothyroid Sleep apnea Chief Complaint 6-8 WEEKS R22.31 - Localized swelling, mass and lump, right M15.0 Z79.899 31-90 Visit Refer: persistent diarrhea Reason for Visit Finger mass, right History of total left hip arthroplasty Osteoarthritis of left hip Primary osteoarthritis, right hand Trochanteric bursitis, left hip GERD (gastroesophageal reflux disease) Hypertension Hypothyroid Sleep apnea Chief Complaint 6-8 WEEKS R22.31 - Localized swelling, mass and lump, right M15.0 Z79.899 31-90 Visit Refer: persistent diarrhea R19.7 Reason for Visit Finger mass, right History of total left hip arthroplasty Osteoarthritis of left hip Primary osteoarthritis, right hand Trochanteric bursitis, left hip GERD (gastroesophageal reflux disease) Hypertension Hypothyroid Sleep apnea Chronic diarrhea Chief Complaint M15.0 Z79.899 31-90 Visit Refer: persistent diarrhea R19.7 Diarrhea,abd. pain, celiac Diarrhea,abd. pain, celiac Reason for Visit GERD (gastroesophage al reflux disease) Hypertension Hypothyroid Sleep apnea Chronic diarrhea Additional Source Comments INFORMATION SOURCE (unrecogn ized section and content) DATE CREATED AUTHOR 11/03/2017 [facility] DATE CREATED AUTHOR AUTHOR'S ORGANIZ ATION 08/11/2020 Anish Saleh [facility] DATE CREATED AUTHOR AUTHOR'S ORGANIZ ATION 01/22/2022 [facility] DATE CREATED AUTHOR AUTHOR'S ORGANIZ ATION 01/22/2022 [facility] DATE CREATED AUTHOR AUTHOR'S ORGANIZ ATION 07/16/2022 [facility] DATE CREATED AUTHOR AUTHOR'S ORGANIZ ATION 03/31/2023 [facility] DATE CREATED AUTHOR AUTHOR'S ORGANIZ ATION 10/19/2023 [facility] EPIC DATE CREATED AUTHOR AUTHOR'S ORGANIZ ATION 01/29/2024 [facility] REASON FOR VISIT (unrecogniz ed section and content) Recheck Left HipmedicationRe check Left HipNo InformationRecheck Left HipRequestingH & P Left Total Hip Care Teams (unrecognized sec tion and content) Team Status: Active Member Role Status Catrina Ambriz MD Primary Care Provider Active Team Status: Inactive Member Role Status Catrina Ambriz MD Primary Care Provider Active Start: August 01, 2023 End: August 01, 2023 Arvind Trevino DO Attending Provider Active S tart: August 01, 2023 End: August 01, 2023 Team Status: Inactive Member Role Status Catrina Ambriz MD Primary Care Provider Active Leila Martin PA-C Attending Provider Active Team Status: Active Member Role Status Catrina Ambriz MD Primary Care Provider Active Start: August 01, 2023 Arvind Trevino DO Attending Provider Active S tart: August 01, 2023 Team Status: Inactive Member Role Status Catrina Ambriz MD Primary Care Provider Active Start: August 15, 2023 End: August 15, 2023 Arvind Trevino DO Attending Provider Active S tart: [...] October 03, 2023 End: October 03, 2023 Arvind Trevino DO Attending Provider Active S tart: October 03, 2023 End: October 03, 2023 Team Status: Active Member Role Status Catrina Ambriz MD Primary Care Provider Active Start: October 03, 2023 Arvind Trevino DO Attending Provider Active S tart: October 03, 2023 Team Status: Inactive Member Role Status Catrina Ambriz MD Primary Care Provider Active Start: October 23, 2023 End: October 23, 2023 RAAD Real Attending Provider Active Start: October 23, 2023 End: October 23, 2023 Team Status: Inactive Member Role Status Catrina Ambriz MD Primary Care Provider Active Start: November 20, 2023 End: November 20, 2023 Lou Hernandez NP Attending Provider Active Start: November 20, 2023 End: November 20, 2023 Team Status: Inactive Member Role Status Catrina Ambriz MD Primary Care Provider Active Start: December 28, 2023 End: December 28, 2023 Gisselle Powell DO Attending Provider Active St art: December 28, 2023 End: December 28, 2023 Tiffany Fuentes APRN Referring Provider Active Start: December 28, 2023 End: December 28, 2023 Team Status: Inactive Member Role Status Catrina mAbriz MD Primary Care Provider Active Start: December 31, 2023 End: December 31, 2023 Gisselle L Ly , DO Attending Provider Active St art: December 31, 2023 End: December 31, 2023 Team Status: Inactive Member Role Status Dates Kory Ambriz MD Primary Care Provider Active Start: January 17, 2024 End: January 17, 2024 Gisselle Powell DO Attending Provider Active St art: January 17, 2024 End: January 17, 2024 Team Status: Active Member Role Status Dates Kory Ambriz MD Primary Care Provider Active Start: January 17, 2024 Gisselle Powell DO Attending Provider, Other Provider Active Start: January 17, 2024 Goals (unrecognized section and content) Goals may [...] BE BASED ON THE PRIMARY CLINICAL RECORDS. [facility]. provides no warranty or guarantee of the accuracy or completeness of information in this document.
== END 2024-03-10 14:53 | disposition home or self-care (01) ==
PROVIDERS: PCP Family Medicine; Visit Provider Internal Medicine Interventional Cardiology
DX: I36.1 Nonrheumatic tricuspid (valve) insufficiency (principal)
CPT/HCPCS: 93306

== ENCOUNTER 2024-04-09 08:22 | Outpatient (OUT) | payer OTHER, SELFPAY ==
--- NOTE | 2024-04-09 | PCN_ITS ---
CARDIAC STRESS TEST Requesting Physician: Procedure Date: 04/09/2024 INDICATION: Dyspnea on exertion. STRESS TEST INFORMATION: The patient was brought to the Stress Lab in a resting and fasting state. She was connected to the appropriate hemodynamic and electrocardiographic monitoring. She underwent a Lexiscan pharmacological stress test. Technetium Cardiolite was administered per protocol. She was discharged in a stable state and to be transferred to the Radiology Department for imaging. There were no complications. HEMODYNAMICS: Resting heart rate was 73 beats per minute, increasing to a maximum of 86 beats per minute. Resting blood pressure was 124/78, with a maximum blood pressure of 133/72. ELECTROCARDIOGRAPHY: Resting EKG: This shows normal sinus rhythm, septal infarct, age indeterminate, abnormal EKG. During infusion and recovery: No significant ST-T wave changes noted, no significant arrhythmias seen. FINAL IMPRESSIONS: 1. No ischemic EKG changes seen on Lexiscan pharmacological stress test. 2. Nuclear images are to be read, interpreted and reported in a separate dictation. PRINCE
--- NOTE | 2024-04-09 08:20 | NM_ITS ---
Patient Name: ROBBIE KEMP MR#: [id number] : 1955 Exam Date: 04/09/2024 Ordering Doctor: DR LARS NEWTON M.D. RADIOLOGY REPORT PROCEDURE: NM CHER PERF SPECT REST STR COMPARISON: None. INDICATIONS: DYSPNEA TECHNIQUE: Exam Description: Stress/Rest one day protocol gated SPECT Rest Imagin.7 mCi Tc-99m Cardiolite IV on 04/09/2024 Stress Imaging 30.9 mCi Tc-99m Cardiolite IV on 04/09/2024 Exercise Protocol: 0.4 mg Lexiscan given IV Heart Rate (bpm): Rest: 73 Max: 86 PMHR: 56 Blood Pressure: Rest: 124/78 Max: 132/72 Symptoms: Rest and peak stress ECG findings were normal and the exercise portion of the study was normal per attending physician Dr. Newton . For more details please see separate cardiac stress test report. FINDINGS: QUALITY OF STUDY: Excellent. PERFUSION DEFECT: None. LOCATION: N/A SIZE: N/A. SEVERITY: N/A. TYPE: N/A. WALL MOTION: Normal. LV SIZE: Normal. 73 mL. TID / TCD: None; 0.9 LVEF: Normal. Calculated EF 78%. SUMMARY: Myocardial perfusion imaging study is NORMAL. CONCLUSION: 1. Normal myocardial perfusion scan 2. Normal exercise test Dictated by: Ramses Nice MD on 04/10/2024 at 09:34 Approved by: Ramses Nice MD on 04/10/2024 at 09:41
[2024-04-09] MEDS: REGADENOSON 0.4 MG/5 ML SYRINGE IV (10:18)
== END 2024-04-09 08:23 | disposition home or self-care (01) ==
LOC: NM 08:22
PROVIDERS: PCP Family Medicine; Visit Provider Internal Medicine Interventional Cardiology
DX: R06.09 Other forms of dyspnea (principal)
CPT/HCPCS: 78452; 93017; A9500; J2785

== ENCOUNTER 2024-04-30 13:02 | Outpatient (OUT) | payer OTHER, SELFPAY ==
--- NOTE | 2024-04-30 | XR_ITS ---
[address] [address] Patient Name: ROBBIE KEMP MRN: [id number] date: 1955 Sex: F Assigned Patient Location: [facility] Current Patient Location: [facility] Accession/Order Number: [id number] Exam Date: 04/30/2024 13:05 Report Date: 05/01/2024 07:28 At the request of: MADELINE KOWALSKI Procedure: XR foot RT min 3V PROCEDURE: XR foot RT min 3V COMPARISON: 10/30/2023 HISTORY: RIGHT FOOT PAIN FINDINGS: BONES:Stable triple arthrodesis. Posterior calcaneal osteotomy transfixed with 2 screws. Partial bony bridging. Osteotomies involving the medial cuneiform and anterior calcaneus with wedged spacer placement. Pes planus. Moderate to severe degenerative changes. Plantar rotation of the hindfoot in relation to the midfoot SOFT TISSUES:Negative. No visible soft tissue swelling. EFFUSION:None visible. OTHER: Negative. XR/XR foot RT min 3V IMPRESSION: Stable triple arthrodesis, degenerative changes with pes planus Electronically authenticated by: SAE LOPEZ Date: 05/01/2024 07:28
== END 2024-04-30 13:03 | disposition home or self-care (01) ==
LOC: RAD 13:02
PROVIDERS: PCP Family Medicine; Visit Provider Podiatrist Foot & Ankle Surgery
DX: M25.571 Pain in right ankle and joints of right foot (principal); Z98.1 Arthrodesis status
CPT/HCPCS: 73630

== ENCOUNTER 2024-10-13 09:11 | Outpatient (OUT) | payer MEDICARE, SELFPAY ==
--- OUTSIDE RECORDS SUMMARY | 2024-10-13 09:12 | XMS_ITS | Clinical Summary ---
Author Organization [facility] Address [facility] [place] [address] Care Team Providers Care Director Strategic Account Management Name Role Phone Seth Jackson Primary Care Provider [phone] Allergies Active Allergy Reactions Criticality Noted Date Comments Animal Dander 07/17/2002 aninmal hair Dust 07/17/2002 seasonal Medications CELEBREX 200MG CAPSULE Take one(1) capsule twice daily. 0 3 Active ECOTRIN 81MG TABLET EC Take one (1) tablet daily. 0 3 Active ALBUTEROL 90MCG INHALER as necessary 0 3 Active NASONEX 50MCG NASAL SPRAY bid 0 3 Active COLACE 100MG CAPSULE Take one(1) capsule daily. 0 3 Active SOMA 350MG TABLET qhs 0 3 Active ZYRTEC-D TABLET 5mg tab bid 0 3 Active MULTIVITAMIN TABLET Take one(1) tablet daily. 0 3 Active SKELAXIN 400MG TABLET prn 0 3 Active XANAX 0.25MG TABLET prn 0 3 Active Active Problems Problem Noted Date Diagnosed Date Myalgia and myositis, unspecified 07/17/2002 Encounters Date Type Department Care Team Description 09/02/2024 Orders Only Cardiology [address] [place], [place] [id number] Sade Glynn MD Tachycardia (Primary Dx) from Last 3 Months Social History Tobacco Use Types Packs/Day Years Used Date Smoking Tobacco: Never Assessed Comments No Sex and Gender Information Value Date Recorded Sex Assigned at Not on file Legal Sex Female 9:57 AM EST Gender Identity Not on file Sexual Orientation Not on file Last Filed Vital Signs Vital Sign Reading Time Taken Comments Blood Pressure 126/90 07/17/2002 8:30 AM EST Pulse 88 07/17/2002 8:30 AM EST Temperature 36.7 C (98.1 F) 07/17/2002 8:30 AM EST Respiratory Rate - - Oxygen Saturation - - Inhaled Oxygen Concentration - - Weight 77.9 kg (171 lb 11.8 oz) 07/17/2002 8:30 AM EST Height 175.3 cm (5' 9.02 ) 07/17/2002 8:30 AM ES T Body Mass Index 25.35 07/17/2002 8:30 AM EST Plan of Treatment Upcoming Encounters Date Type Department Care Team (Late st Contact Info) Description 03/12/2025 12:15 PM EST Office Visit Cardiology [address] [place], [place] [id number] DX VENTRICULAR TACHYCARDIA 03/12/2025 12:30 PM EST Procedure Cardiology [address] [place], [place] [id number] DX VENTRICULAR TACHYCARDIA 03/12/2025 1:45 PM EST Office Visit Cardiology [address] [place] [id number] Sade Glynn MD [address] [place] [address] DX VENTRICULAR TACHYCARDIA Health Maintenance Due Date Last Done Comments Anxiety Screening 1974 Depression Screening 1974 Hepatitis C Screening 1974 DTaP,Tdap,Td Vaccine (1 - Tdap) [address] Colonography 2001 Cologuard (FIT-DNA) 2001 Colonoscopy 2001 Colorectal Cancer Screening 2001 Fecal Occult Blood 2001 Lipid Screening 2001 Sigmoidoscopy 2001 Diabetes Screening 07/17/2005 07/17/2002 Pneumococcal Vaccine: 50+ (1 of 1 - PCV) 2006 Shingrix Vaccine (1 of 2) 2006 Bone Density Screening 2021 Covid-19 Vaccine (2023- season) 2023 Advance Directive Discussion 04/23/2024 Influenza Vaccine (Season Ended) 2024 RSV Vaccine (1 - 1-dose 75+ series) 2031 Procedures Procedure Name Priority Date/Time Associated Diagnosis Comments COMPREHENSIVE METABOLIC PANEL Routine 07/17/2002 10:22 AM EST General Osteoarthrosis from Last 3 Months or Most Recently Relevant to Health Maintenance Results * (ABNORMAL) COMP METABOLIC PANEL (07/17/2002 10:22 AM EST) Protein, Total 8.0 6.0 - 8.4 g/dL [facility] Albumin 4.5 3.5 - 5.0 g/dL [facility] Calcium 9.8 8.5 - 10.5 mg/dL [facility] Bilirubin, Total 0.7 0.0 - 1.5 mg/dL [facility] Alkaline Phosphatase 57 40 - 150 U/L [facility] AST 22 7 - 40 U/L [facility] Glucose 92 65 - 110 mg/dL [facility] BUN 15 8 - 25 mg/dL [facility] Creatinine 0.9 0.7 - 1.4 mg/dL [facility] Sodium 140 132 - 148 mmol/L [facility] Potassium 4.6 3.5 - 5.0 mmol/L [facility] Chloride 102 98 - 110 mmol/L [facility] CO2 21(A) 24 - 32 mmol/L [facility] Anion Gap 17(A) 0 - 15 mmol/L [facility] ALT 16 0 - 45 U/L [facility] Blood specimen (specimen) BLOOD SPECIMEN / Unknown 07/17/2002 10:22 AM EST us [facility] Final Result [facility] [address] [place] [address] from Last 3 Months or Most Recently Relevant to Health Maintenance Insurance [facility] [employer] Care Teams Director Strategic Account Management Relationship Specialty Start Date End Date Seth Jackson [address] [place] [address] PCP - General 05/28/02
--- NOTE | 2024-10-13 09:14 | MM_ITS ---
Patient Name: ROBBIE KEMP MR#: [id number] : 1955 Exam Date: 10/13/2024 Ordering Doctor: DR KORY MCKEON . RADIOLOGY REPORT PROCEDURE: MM TOMOSYNTHESIS SCREENING BI COMPARISON: MM TOMOSYNTHESIS SCREENING BI, 10/12/2023. MM TOMOSYNTHESIS SCREENING BI, 10/09/2022. MG MAMM SCREEN 3D DEREK CAD, 09/30/2021. MG MAMM DEREK SCRN W CAD DIG, 07/25/2013. INDICATIONS: Screening Calculator Name NCI Breast Cancer Risk Assessment Tool 5 Year Breast Cancer Risk 2.30% Lifetime Breast Cancer Risk 7.40% Personal Breast Cancer No Personal Ovarian Cancer No Treatments None Family Cancers Cousin-maternal with breast cancer at age ~50. LOCATION: [facility] BREAST COMPOSITION: The breasts are heterogeneously dense,which may obscure small masses. FINDINGS: DIAGNOSTIC CATEGORY 1--NEGATIVE. RIGHT BREAST: No significant suspicious finding. LEFT BREAST: No significant suspicious finding. RECOMMENDATIONS: ROUTINE MAMMOGRAM AND CLINICAL EVALUATION IN 12 MONTHS. PLEASE NOTE: A NORMAL MAMMOGRAM DOES NOT EXCLUDE THE POSSIBILITY OF BREAST CANCER. A CLINICALLY SUSPICIOUS PALPABLE LUMP SHOULD BE BIOPSIED. Dictated by: Thomas Delgado DO on 10/13/2024 at 16:32 Approved by: Thomas Delgado DO on 10/13/2024 at 16:33
== END 2024-10-13 09:12 | disposition home or self-care (01) ==
LOC: MAMMO 09:11
PROVIDERS: PCP Family Medicine; Visit Provider Family Medicine
DX: Z12.31 Encounter for screening mammogram for malignant neoplasm of breast (principal); Z80.3 Family history of malignant neoplasm of breast
CPT/HCPCS: 77063; 77067

== ENCOUNTER 2025-02-27 08:12 | Outpatient (OUT) | payer MEDICARE, SELFPAY ==
--- OUTSIDE RECORDS SUMMARY | 2025-02-27 08:16 | XMS_ITS | CCD ---
Author Organization [facility] CliniSynd Care Team Providers Care Formula Technician Name Role Phone IGNACIO, SALIMA Unavailable Unavailable IGNACIO, SALIMA Unavailable Unavailable IGNACIO, SALIMA Unavailable Unavailable UNABLE TO VALIDATE Unavailable Unavailable Arvind Trevino Unavailable Unknown, Referring Provider Unavailable Unav ailable Unavailable Unavailable MD Rio Ambriz Primary Care Provider [phone] GRETA Martin Attending Provider [phone] UNKNOWN, PCP Primary Care Unavailable Lamont Brown, [...] Unavailable HOY ., DR HORN Consulting Unavailable ZISPIKE, DR ELVA Anaya Consulting Unavailable HOY ., DR HORN Admitting Unavailable HOY ., DR HORN Attending Unavailable HOY ., DR HORN Primary Care Unavailable HOY ., DR HORN Consulting Unavailable ZIEBER, DR ELVA Anaya Consulting Unavailable CAS, HARITHA Admitting Unavailable HARITHA KHAN Attending Unavailable LINDA ., DR HORN Primary Care Unavailable JESSICA, DR SAE Lazar Consulting Unavailable CAS, HARITHA Consulting Unavailable NU, ODILIA Admitting Unavailable ODILIA MARTIN Attending Unavailable LINDA ., DR HORN Primary Care Unavailable JESSICA, DR SAE Lazar Consulting Unavailable NU, ODILIA Consulting Unavailable NU, ODILIA Admitting Unavailable ODILIA MARTIN Attending Unavailable HOCarolyne ., DR HORN Primary Care Unavailable ZIEBEMILIANO, DR ELVA Anaya Consulting Unavailable ODILIA MARTIN Unavailable LINDA ., DR HORN Admitting Unavailable LINDA ., DR HORN Attending Unavailable LINDA ., DR HORN Primary Care Unavailable LINDA ., DR HORN Consulting Unavailable MD Rio Ambriz Primary Care Provider DO Arvind Trevino Attending Provider MD Sae Rodríguez Attending Provider RAAD Fuentes Attending Provider MD Rio Ambriz Primary Care Provider DO Arvind Trevino Attending Provider MD Rio Ambriz Primary Care Provider DO Gisselle Powell Attending Provider MD Rio Ambriz Primary Care Provider Rio Ambriz MD Primary Care Provider Rio Ambriz MD Attending Provider [phone] Rio Ambriz MD Primary Care Provider Rio Ambriz MD Attending Provider Isidro Sanchez DO Emergency Provider Rio Ambriz MD Primary Care Provider Rio Ambriz MD Attending Provider [phone] Isidro Sanchez DO Emergency Provider Mirza Newton Attending Provider [phone] Seth Jackson Primary Care Provider Unallocated , [place] Provider Primary Care Provi virgen Rio Ambriz MD Primary Care Provider Rio Ambriz MD Attending Provider David LIMA, Lou Attending Provider Rio Ambriz Admitting Unavailable Rio Ambriz Attending Unavailable Rio Ambriz Primary Care Unavailable Hoy, Rio M Admitting Unavailable Hoy, Rio M Attending Unavailable Hoy, Rio M Primary Care Unavailable Eltahawy, Ehab A Admitting Unavailable Eltahawy, Ehab A Attending Unavailable Hoy, Rio M Primary Care Unavailable Ly, Gisselle L Admitting Unavailable Ly, Gisselle L Attending Unavailable Hoy, Rio M Primary Care Unavailable Tupa, Isidro M Admitting Unavailable Tupa, Isidro M Attending Unavailable Hoy, Rio M Primary Care Unavailable Hoy, Rio M Admitting Unavailable Hoy, Rio M Attending Unavailable Hoy, Rio M Primary Care Unavailable Hoy, Rio M Admitting Unavailable Hoy, Rio M Attending Unavailable Hoy, Rio M Primary Care Unavailable Ly, Gisselle L Admitting Unavailable Ly, Gisselle L Attending Unavailable Hoy, Rio M Primary Care Unavailable Tarik Fontenot MD Attending Provider HARITHA KHAN Attending Unavailable PERCIOUS SPIVEY Attending Unavailable BASSETT, SALIMA Referring Unavailable REBOLLAR, PAM Attending Unavailable BASSETT, SALIMA Referring Unavailable VITALY BARBOZA Attending Unavailable BASSETT, SALIMA Referring Unavailable REBOLLARKYPAM Attending Unavailable BASSETT, SALIMA Referring Unavailable REBOLLAR, PAM Attending Unavailable BASSETT, SALIMA Referring Unavailable ABRMA EVANGELISTA Attending Unavailable LISE SUE Attending Unavailable LISE SUE Attending Unavailable ELTAHAWY, EHAB Referring Unavailable ELTAHAWY, EHAB Admitting Unavailable ELTAHAWY, EHAB Attending Unavailable ELTAHAWY, EHAB Attending Unavailable ELTAHAWY, EHAB Attending Unavailable Hoy, Rio Referring Unavailable Bassett, Salima Admitting Unavailable Bassett, Salima Attending Unavailable Bassett, Salima Attending Unavailable Tarik Fontenot Referring Unavailable Bassett, Salima Admitting Unavailable Allergies Allergy ClassificationReported Allergen(s)Allergy TypeDate of OnsetReaction(s) Facility (20 sources)HYDROmorphone; Translations: [HYDROMORPHONE]Drug Cziygnu43-60-7974 anaphylaxis, UnknownProm[facility] (20 sources)MorphineDrug Lfchnls61-56-2206qfrwQespqhhmqPremier [facility] (7 sources)Penicillin VDrug [facility] [employer] Other (7 sources)sulfaSALAzineDrug AllergyrasSac-[facility] Hospital [employer] Other (20 sources)Penicillins; Translations: [Penicillins]Allergy to drug (finding) 47-88-3514Yiidyov, RashPromedica Flower HospitalComment on above:itching (2 sources)Sulfamethoxazole; Translations: [sulfa]Drug AllergyItching [facility] Work Phone: (20 sources)Sulfonamides (Antibiotic); Translations: [Sulfa (Sulfonamide Antibiotics)]Allergy to dsaqyscsk08-78-2876TpemZbobexrxdPremier Health [facility] Center (2 sources)Ciprofloxacin; Translations: [CIPROFLOXACIN]Drug Ecwfyth52-45-9729TybGerman Hospital Rep[facility] (2 sources)fentaNYL; Translations: [FENTANYL]Drug Ntklegs86-77-8197Zzs [facility] Repository (2 sources)HYDROmorphone; Translations: [Dilaudid]Drug Ruvepqx11-48-7876AywGerman Hospital Repository (1 source)PenicillinsDrug allergy (disorder)59-50-9794LvoGerman Hospital Repository (1 source)Sulfonamides (Antibiotic)Drug allergy (disorder)85-59-1757KqeGerman Hospital Repository (1 source)DustPropensity to adverse cbguiiyxv20-23-6882[facility] (2 sources)Animal Dander; Translations: [ANIMAL DANDER]Propensity to adverse ywpziaisl58-37-0531Jdpxzngsk Clinic (12 sources)fentaNYLDrug Ynogcss27-37-9579IdpjwvdFXYL Healthcare (12 sources)PenicillinsPropensity to adverse dhwdfoosc96-98-3407BZFR Healthcare (13 sources)Sulfanilamide; Translations: [SULFANILAMIDE]Allergy to substance 28-34-0481VpvcefuNCWTUniversity Hospitals [facility] (2 sources)HYDROmorphoneDrug Jfivjjn92-16-5937JmqytwzuqPromedica Flower Hospital Repository (2 sources)MorphineDrug Mjqlprd82-51-9316DnfzbnavqPromedica Flower Hospital Repository (2 sources)PenicillinsDrug allergy (disorder)74-26-1772BtobhnjquPromedica Flower Hospital Repository (1 source)Ciprofloxacin; Translations: [Cipro]Drug [facility]ergyReg[facility] (1 source)Penicillin; Translations: [penicillin]Drug AllergyReg[facility] (1 source)Sulfonamides (Antibiotic); Translations: [sulfa drugs]Propensity to adverse reactions (disorder)[facility] Medications Current Medications MedicationDrug Class(es)DatesSig (Normalized)Sig (Original)acyclovir 800 mg oral tablet (20 sources)Herpesvirus Nucleoside Analog DNA Polymerase Inhibitor, Herpes Simplex Virus Nucleoside Analog DNA Polymerase Inhibitor, Herpes Zoster Virus Nucleoside Analog DNA Polymerase InhibitorStart: 49-03-7710qvdf 1 tablet by mouth once dailyacyclovir (Zovirax) 800 MG tablet Indications: HSV infection Take 1 tablet (800 mg) by mouth once per day 90 tablet 3 10/04/2023 ActiveStart: 79-21-9313kklz 1 tablet by mouth once dailyAcyclovir 800 MG Oral Tablet TAKE 1 TABLET BY MOUTH DAILY Quantity: 30 Refills: 0 Ordered: 08-Sep-2021 DO Start : 08-Sep-2021 ActiveamLODIPine 5 mg oral tablet (18 sources)Dihydropyridine Calcium Channel BlockerStart: 61-75-1367aodi 1 tablet by mouth once dailyAmlodipine (Norvasc) 5 mg tablet Active 5 MG PO Daily August 16, 2023 12:00am Complies with drug therapyaspirin 81 mg delayed release oral tablet (3 sources)Platelet Aggregation Inhibitor, Nonsteroidal Anti-inflammatory Drug Start: 29-58-6670QZLFNXN 81MG TABLET EC Take one (1) tablet daily. 0 07/17/2002 Activetake 1 tablet by mouth every twelve hoursAspirin 81 MG 1 tablet Orally twice a day for 37 days Do not fill until 01/10/21 post op MARK Activecarisoprodol 350 mg oral tablet (20 sources)Muscle RelaxantStart: 61-95-3897qikz 2 tablets by mouth once daily at bedtimeCarisoprodol 350 mg tablet Active 700 MG PO Daily at bedtime December 29, 2020 12:00am Complies with drug therapyStart: 91-65-4775tgxh 700 mg by mouth once daily at bedtimeCarisoprodol Active 700 MG PO Daily at bedtime December 29, 2020 12:00amStart: 40-36-3062JOXT 350MG TABLET qhs 0 07/17/2002 Activetake 1 tablet by mouth twice daily at bedtimecarisoprodol (Soma) 350 MG tablet take 1 tablet (350MG) by ORAL route 2 times every day and at bedtime Oral Activecarvedilol 25 mg oral tablet (20 sources)alpha-Adrenergic Cathy, beta-Adrenergic BlockerStart: 08-16-2023 take 1 tablet by mouth twice dailyCarvedilol 25 mg tablet Active 25 MG PO Twice daily August 16, 2023 12:00am Complies with drug therapyStart: 09-03-2020 End: 76-93-0107ksri 1 tablet by mouth twice dailyCarvedilol (Coreg) 6.25 mg Tablet Discontinued 6.25 MG PO Twice daily December 29, 2020 12:00am August 16, 2023 2:05pmcephalexin 500 mg oral capsule (3 sources)Cephalosporin AntibacterialStart: 09-23-2023 End: 45-44-2170xgrq 1 capsule by mouth twice dailycephalexin (Keflex) 500 MG capsule Indications: Infected abrasion of leg, left, initial encounter 1po bid until all taken. 14 capsule 09/23/2023 10/16/2024 Discontinuedcetirizine hydrochloride 10 mg oral capsule (12 sources)Histamine-1 Receptor AntagonistCetirizine HCl (ZyrTEC ALLERGY) 10 MG capsule ZyrTEC Hduklr54 hr cetirizine hydrochloride 5 mg / pseudoephedrine hydrochloride 120 mg extended release oral tablet (3 sources)alpha-Adrenergic Agonist, Histamine-1 Receptor AntagonistStart: 31-20-9051HBJKRT-D TABLET 5mg tab bid 0 07/17/2002 ActiveZyrtec-D 5-120 MG TB12 TAKE 1 TABLET TWICE DAILY NEEDED. Quantity: 0 Refills: 0 Ordered: 12-Dec-2021 DO Qlkhsq70 hr desvenlafaxine succinate 50 mg extended release oral tablet (18 sources)Serotonin and Norepinephrine Reuptake InhibitorStart: 60-87-3873zqpa 1 tablet by mouth once dailyDesvenlafaxine Succinate 50 mg tablet extended release 24 hr Active 50 MG PO Daily August 152:00am Complies with drug therapydiclofenac sodium 75 mg / miSOPROStol 0.2 mg delayed release oral tablet (12 sources)Nonsteroidal Anti-inflammatory Drug, Prostaglandin E1 Analogtake 1 tablet by mouth in the morningdiclofenac-miSOPROStol (Arthrotec 75) 75-0.2 MG EC tablet Take 1 tablet by mouth in the morning and1 tablet before bedtime. Active enalapril maleate 2.5 mg oral tablet (12 sources)Angiotensin Converting Enzyme Inhibitortake 1 tablet by mouth once dailyenalapril (Vasotec) 2.5 MG tablet Take 2.5 mg by mouth Daily Active estradiol 0.5 mg oral tablet (20 sources)EstrogenStart: 10-04-2023 End: 97-85-5950fwflfshzi (Estrace) 0.5 MG tablet Indications: Postmenopausal HRT (hormone replacement therapy) TAKE 1 TABLET ONCE DAILY 90 tablet 3 10/16/2024 ActiveStart: 50-54-3442xvks 2 tablets by mouth once daily at bedtimeEstradiol 0.5 mg tablet Active 1 MG PO Daily at bedtime December 29, 2020 12:00am Complies with drug therapyStart: 71-91-0642aiel 1 mg by mouth once daily at bedtimeEstradiol Active 1 MG PO Daily at bedtime December 29, 2020 12:00am Start: 20-28-1108xvab 1 tablet by mouth once dailyEstradiol 0.5 MG Oral Tablet TAKE 1 TABLET BY MOUTH DAILY Quantity: 30 Refills: 0 Ordered: 29-Aug-2021 DO Start : 01-Sep-2020 Activeflecainide acetate 50 mg oral tablet (14 sources)AntiarrhythmicStart: 89-25-8608cvsvleombl (Tambocor) 50 MG tablet 1 (one) time each day at the same time 08/15/2024 ActiveFluticasone Propion-Salmeterol (20 sources)Corticosteroid, beta2-Adrenergic AgonistStart: 36-11-7734Glsdzuggron Propion-Salmeterol (Wixela Inhub) 250-50 mcg/dose blister with device Active 1 INH INHALATION Twice daily August 16, 2023 12:00am Complies with drug therapy Start: 54-76-4472Flhqt: 58-75-8858Pheqxqasamv Propion-Salmeterol (Wixela Inhub) 250-50 mcg/dose blister with device Active 1 INH INHALATION Twice daily August 15, 2023 11:00pmStart: 05-43-5910Wiuteqvcbzm Propion-Salmeterol (Wixela Inhub) 250-50 mcg/dose blister with device Active 1 INH INHALATION Twice daily August 16, 2023 12:00amStart: 04-21-1856Djaewabuibo-Salmeterol 250-50 MCG/ACT Inhalation Aerosol Powder Breath Activated USE 1 INHALATION TWICE A DAY Quantity: 1 Refills: 5 Ordered: 10-Jan-2022 La Nena Miguel DO Start : 12-Dec-2021 Activefluticasone-salmeterol (Advair Diskus) 100-50 MCG/DOSE diskus inhaler inhale 1 by Nasal route 2 times every day Inhalation Activelansoprazole 30 mg delayed release oral capsule (12 sources)Proton Pump Inhibitortake 1 capsule by mouth oncelansoprazole (Prevacid) [address] capsule take 1 capsule (30MG) by ORAL route every 2 days before a meal Oral Activelisinopril 40 mg oral tablet (20 sources)Angiotensin Converting Enzyme InhibitorStart: 44-21-5873tsld 1 tablet by mouth once dailyLisinopril 40 mg tablet Active 40 MG PO Daily August 16, 2023 12:00am Complies with drug therapyStart: 12-29-2020 End: 07-87-6200ojgh 1 tablet by mouth once daily at bedtimeLisinopril 10 mg Tablet Discontinued 10 MG PO Daily at bedtime December 29, 2020 12:00am August 16, 2023 2:07pmtake 1 tablet by mouth every twenty-four hoursLisinopril 40 MG 1 tablet Orally Once a day Activemagnesium oxide 200 mg oral tablet (7 sources)Start: 77-89-8048elcs 1 tablet by mouth twice dailyMagnesium Oxide 200 mg magnesium tablet Active 200 MG PO Twice daily June 19, 2024 1:00am Complies with drug therapymetaxalone (1 source)Start: 82-64-4797AYIWYBFV 400MG TABLET prn 0 07/17/2002 Active mometasone furoate 0.05 mg/actuat metered dose nasal spray (1 source)CorticosteroidStart: 82-70-7338BSGGKUS 50MCG NASAL SPRAY bid 0 07/17/2002 ActiveMULTIVITAMIN TABLET (1 source)Start: 42-08-0476ULSEILCGHVJN TABLET Take one(1) tablet daily. 0 07/17/2002 Activeomeprazole 20 mg delayed release oral capsule (20 sources)Proton Pump InhibitorStart: 88-61-7560huok 1 capsule by mouth once dailyOmeprazole 20 mg capsule,delayed release(DR/EC) Active 20 MG PO Daily August 16, 2023 12:00am Complies with drug therapyStart: 15-45-3583snhw 1 capsule by mouth once dailyOmeprazole 20 MG Oral Capsule Delayed Release TAKE 1 CAPSULE BY MOUTH DAILY Quantity: 30 Refills: 0Ordered: 29-Aug-2021 DO Start : 02-Jun-2021 ActiveStart: 12-29-2020 End: 56-55-8647unfv 1 capsule by mouth twice dailyOmeprazole 40 mg capsule,delayed release(DR/EC) Discontinued 40 MG PO Twice daily December 29, 2020 12:00am August 16, 2023 2:07pmStart: 09-53-7352ufqj 1 capsule by mouth every twelve hoursOmeprazole 40 MG Oral Capsule Delayed Release TAKE 1 CAPSULE BY MOUTH EVERY 12 HOURS Quantity: 60 Refills: 0 Ordered: 27-May-2021 DO Start : 07-Jul-2020 Completetake 1 capsule by mouth once dailyOmeprazole 40 MG 1 capsule 30 minutes before morning meal Orally Once a day Activesimvastatin 20 mg oral tablet (20 sources)HMG-CoA Reductase InhibitorStart: 54-63-2937qypx 1 tablet by mouth once daily at bedtimeSimvastatin 20 mg Tablet Active 20 MG PO Daily at bedtime December 29, 2020 12:00am Complies withdrug therapyTylenol Extra Strength 500 MG (4 sources)take 2 tablets by mouth every eight hours as neededTylenol Extra Strength 500 MG 2 tabs Orally every 8 hrs for 30 days prn Activetake 2 tablets by mouth every eight hoursTylenol Extra Strength 500 MG 2 tabs Orally every 8 hrs for 30 days Do not fill until 01/10/21 post op MARK Active Completed/Discontinued Medications MedicationDrug Class(es)DatesSig (Normalized)Sig (Original)acetaminophen 500 mg oral tablet (20 sources)Start: 12-29-2020 End: 22-15-3294Pkkcuczoglkio (Tylenol Ex Str Rapid Release) 500 mg Tablet Discontinued 1000 MG PO Q6H as needed for Pain December 29, 2020 12:00am August 15, 2023 8:46amtake 1 tablet by mouth every four hoursTylenol 325 MG 1 tablet as needed Orally every 4 hrs Activealbuterol 0.83 mg/ml inhalation solution (4 sources)beta2-Adrenergic AgonistStart: 74-26-2098Lomkhqihg Sulfate (2.5 MG/3ML) 0.083% Inhalation Nebulization Solution Nebulize 1 unit dose now via nebulizer Quantity: 0 Refills: 0 Ordered: 12-Dec-2021 La Nena Miguel DO Start : 12-Dec-2021 CompleteStart: 96-64-4381dwjd 2 puff(s) by inhalation four times daily as neededAlbuterol Sulfate HFA 108 (90 Base) MCG/ACT Inhalation Aerosol Solution INHALE 2 PUFFS FOUR TIMES DAILY NEEDED Quantity: 8 Refills: 0 Ordered: 02-Jun-2021 DO Start : 02-Jun-2021 ActiveStart: 13-26-9558MJWTORZSX 90MCG INHALER as necessary 0 07/17/2002 ActiveALPRAZolam 0.25 mg oral tablet (3 sources)BenzodiazepineStart: 29-78-6916kwtf 1 tablet by mouth once daily as neededALPRAZolam 0.25 MG Oral Tablet TAKE 1 TABLET BY MOUTH DAILY NEEDED MUST LAST 30 DAYS Quantity: 15 Refills: 0 Ordered: 05-May-2021 DO Start : 05-May-2021 Activecelecoxib 200 mg oral capsule (3 sources)Nonsteroidal Anti-inflammatory DrugStart: 90-70-5345ihzc 1 capsule by mouth once dailyCelecoxib 200 MG Oral Capsule TAKE 1 CAPSULE BY MOUTH DAILY Quantity: 30 Refills: 0 Ordered: 09-Dec-2021 DO Start : 09-Dec-2021 ActiveStart: 92-38-9760SFJEMSSJ 200MG CAPSULE Take one(1) capsule twice daily. 0 07/17/2002 Activecholestyramine resin 4000 mg powder for oral suspension (10 sources)Bile Acid SequestrantStart: 01-28-2024 End: 09-87-1794uvme 1 dose by mouth twice dailyCholestyramine (With Sugar) 4 gram powder in packet Discontinued 4 GM PO Twice daily 60 January 28, 2024 12:00am June 19, 2024 3:18pm administer w/meal; avoid other meds within 1hr before or 4-6hr after doseclindamycin 150 mg oral capsule (2 sources)Lincosamide AntibacterialStart: 72-30-9450kmnw 4 capsules by mouth every hourClindamycin HCl - 150 MG Oral Capsule TAKE 4 CAPSULES BY MOUTH ONE HOUR PRIOR TO DENTAL APPOINTMENT. Quantity: 12 Refills: 0 Ordered: 31-Jul-2021 DO Start : 31-Jul-2021 Activecolestipol hydrochloride 1000 mg oral tablet (8 sources)Bile Acid SequestrantStart: 05-29-2024 End: 58-92-0768ibpw 1 tablet by mouth twice dailyColestipol 1 gram tablet Discontinued 1 GM PO Twice daily May 29, 2024 1:00am June 19, 2024 3:18pm Take 1 tablet orally twice a daycyclobenzaprine hydrochloride 10 mg oral tablet (3 sources)Muscle RelaxantStart: 55-38-6644zxtl 1 tablet by mouth three times daily as needed for muscle spasmsCyclobenzaprine HCl - 10 MG Oral Tablet Take 1 tablet by mouth three times a day as needed for muscle spasm Quantity: 90 Refills: 0 Ordered: 03-Jun-2021 DO Start : 03-Jun-2021 Completetake 1 tablet by mouth every eight hours as needed for muscle spasmsCyclobenzaprine HCl 10 MG 1 tablet as needed for muscle spasm Orally every 8 hours for 14 days Active diclofenac sodium 75 mg delayed release oral tablet (20 sources)Nonsteroidal Anti-inflammatory DrugStart: 08-15-2023 End: 98-05-2308ifjj 1 tablet by mouth twice dailyDiclofenac Sodium 75 mg tablet,delayed release (DR/EC) Discontinued 75 MG PO Twice daily August 16, 2023 2:09pm January 07, 2024 12:44pmStart: 08-15-2023 End: 17-62-2863Ivpvpjkmik Sodium Discontinued MG PO August 15, 2023 12:00am August 16, 2023 2:09pmStart: 19-01-5008miks 1 tablet by mouth twice daily Diclofenac Sodium 75 MG Oral Tablet Delayed Release TAKE 1 TABLET BY MOUTH TWICE DAILY Quantity: 60Refills: 0 Ordered: 02-Jun-2021 DO Start : 02-Jun-2021 Completetake 1 tablet by mouth every twelve hoursDiclofenac Sodium 75 MG 1 tablet as needed Orally Twice a day ActivediphenhydrAMINE hydrochloride 25 mg oral tablet (2 sources)Histamine-1 Receptor AntagonistBenadryl 25 MG TABS TAKE 1 TABLET EVERY 4 HOURS NEEDED. Quantity: 0 Refills: 0 Ordered: 12-Dec-2021 DO Active docusate sodium 100 mg oral capsule (4 sources)Start: 39-01-3360liqy 1 capsule by mouth twice dailyDocusate Sodium 100 MG Oral Capsule TAKE 1 CAPSULE BY MOUTH TWICE DAILY Quantity: 28 Refills: 0 Ordered: 10-Jan-2021 DO Start : 07-Jan-2021 CompleteStart: 66-35-1889MTKJMV 100MG CAPSULE Take one(1) capsule daily. 0 07/17/2002 Activedoxycycline hyclate 100 mg oral capsule (3 sources)Tetracycline-class DrugStart: 70-03-4777apiv 1 capsule by mouth twice dailyDoxycycline Hyclate 100 MG Oral Capsule TAKE 1 CAPSULE BY MOUTH TWICE DAILY Quantity: 14 Refills: 0Ordered: 10-Jan-2021 DO Start : 07-Jan-2021 Complete ibuprofen 800 mg oral tablet (5 sources)Nonsteroidal Anti-inflammatory DrugStart: 34-86-7468vhjd 1 tablet by mouth four times daily as needed for painIbuprofen 800 MG Oral Tablet TAKE 1 TABLET BY MOUTH FOUR TIMES DAILY NEEDED FOR PAIN Quantity: 120 Refills: 0 Ordered: 25-Jul-2021 DO Start : 02-Jun-2021 Activetake 1 tablet by mouth once at mealtime as neededIbuprofen 800 MG 1 tablet with food or milk as needed Orally once per morning Qvbrpy815 actuat ipratropium bromide 0.017 mg/actuat metered dose inhaler (2 sources)AnticholinergicStart: 79-55-4701uvyo 2 puff(s) by inhalation four times dailyAtrovent HFA 17 MCG/ACT Inhalation Aerosol Solution INHALE 2 PUFFS FOUR TIMES DAILY Quantity: 13 Refills: 0 Ordered: 07-Nov-2021 DO Start : 22-Aug-2021 Activelevothyroxine sodium 0.05 mg oral tablet (20 sources)l-ThyroxineStart: 56-32-2645lhen 1 tablet by mouth once daily Levothyroxine Sodium 50 MCG Oral Tablet TAKE 1 TABLET DAILY. Quantity: 0 Refills: 0 Ordered: 29-Aug-2021 DO Start : 02-Jun-2021 ActiveStart: 12-29-2020 take 2 tablets by mouth once daily in the morningLevothyroxine 50 mcg tablet Active 100 MCG PO Every morning December 29, 2020 12:00am Complies with drug therapyStart: 85-68-7391dgnh 100 ug by mouth once daily in the morning Levothyroxine Active 100 MCG PO Every morning December 29, 2020 12:00amtake 1 tablet by mouth once dailylevothyroxine (Synthroid) 100 MCG tablet take 1 tablet by ORAL route every day Oral Activetake 1 tablet by mouth once daily in the morningLevothyroxine Sodium 50 MCG 1 tablet in the morning on an empty stomach Orally Once a day Activeondansetron 4 mg oral tablet (14 sources)Serotonin-3 Receptor AntagonistStart: 12-28-2023 End: 26-99-8760sjal 1 tablet by mouth every six hoursOndansetron Hcl 4 mg tablet Discontinued 4 MG PO Every 6 hours 3 December 28, 2023 12:00am June 19, 2024 3:19pmStart: 19-71-5112gchs 1 tablet by mouth four times daily as neededOndansetron 4 MG Oral Tablet Disintegrating DISSOLVE 1 (ONE) TABLET on tongue FOUR TIMES DAILY NEEDED Quantity: 9 Refills: 0 Ordered: 31-Dec-2020 DO Start : 31-Dec-2020 Activeoxaprozin 600 mg oral tablet (11 sources)Nonsteroidal Anti-inflammatory DrugStart: 01-07-2024 End: 14-04-4766wmjr 1 tablet by mouth three times dailyOxaprozin (Daypro) 600 mg tablet Discontinued 600 MG PO Three times daily January 07, 2024 12:00am November 18, 2024 10:26amStart: 90-40-8245ylsu 1 tablet by mouth twice daily Oxaprozin (Daypro) 600 mg tablet Active 600 MG PO Twice daily January 06, 2024 11:00pmoxyCODONE hydrochloride 5 mg oral tablet (5 sources)Opioid AgonistStart: 65-13-1967cgsg 1 tablet by mouth every four hours as needed for painoxyCODONE HCl - 5 MG Oral Tablet TAKE 1 TABLET BY MOUTH EVERY FOUR HOURS NEEDED FOR PAIN Quantity: 42 Refills: 0 Ordered: 15-Feb-2021 DO Start : 15-Feb-2021 CompleteprednisoLONE acetate 10 mg/ml ophthalmic suspension (1 source)CorticosteroidStart: 26-06-8024ekxy 1 drop(s) into the eye(s) every four hoursprednisoLONE Acetate 1 % Ophthalmic Suspension instill 1 (ONE) DROP EVERY 4 HOURS WHILE AWAKE into operative eye. start after surgery. Quantity: 15 Refills: 0 Ordered: 31-Jul-2021 DO Start : 04-Jul-2021 CompletetraMADol hydrochloride 50 mg oral tablet (20 sources)Opioid AgonistStart: 12-15-2020 End: 21-88-1400gakt 1 tablet by mouth three times daily as needed for pain Tramadol 50 mg tablet Discontinued 50 MG PO Three times daily as needed for Pain December 29, 2020 12:00am August 15, 2023 8:46amtake 1 tablet by mouth every twenty-four hourstraMADol HCl 50 MG 1 tablet as needed Orally Once a day Active7 actuat umeclidinium 0.0625 mg/actuat dry powder inhaler (1 source)AnticholinergicStart: 98-11-5833xyau 1 puff(s) by inhalation once dailyIncruse Ellipta 62.5 MCG/INH Inhalation Aerosol Powder Breath Activated INHALE 1 PUFF DAILY DIRECTED Quantity: 30 Refills: 0 Ordered: 31-Aug-2021 DO Start : 31-Aug-2021 Completevancomycin 125 mg oral capsule (11 sources)Glycopeptide AntibacterialStart: 01-01-2024 End: 97-54-4766pbsx 1 capsule by mouth four times dailyVancomycin 125 mg capsule Discontinued 125 MG PO Four times daily 56 14 January 01, 2024 12:00am January 28, 2024 12:05pm Problems Active Problems Problem ClassificationProblemDateDocumented DateEpisodic/ChronicAllergic reactions (2 sources)Allergic condition; Translations: [Allergy, unspecified, not elsewhere classified]EpisodicComment on above:pollen and pets immunocap 11/2021; Anxiety disorders (20 sources)Generalized anxiety disorder; Translations: [Generalized anxiety disorder]33-50-9454MbeellaQqqtfs (1 source)Moderate persistent asthma; Translations: [Asthma, unspecified type, unspecified]ChronicCardiac dysrhythmias (9 sources)Multiple premature ventricular complexes; Translations: [Ventricular premature depolarization]Onset: 692161-21-8912LrkllerAyuodkshwx and other anemia (1 source)Anemia, unspecified; Translations: [ANEMIA UNSPECIFIED]Onset: 44-87-8179AsvmbtfdHzoqzkam mellitus without complication (1 source)Other abnormal glucose; Translations: [OTHER ABNORMAL GLUCOSE]Onset: 96-55-1429GvyymxatPdpanfbil of lipid metabolism (1 source)Hyperlipidemia, unspecified; Translations: [HYPERLIPIDEMIA UNSPECIFIED]Onset: 93-86-8072NwdwcjvLiyrubsohc disorders (20 sources)Gastro-esophageal reflux disease without esophagitis; Translations: [Gastroesophageal reflux disease]Onset: 158617-11-8907MuyugkhAzgawxyrb hypertension (20 sources)Hypertensive disorder; Translations: [Essential (primary) hypertension]Onset: 818203-61-1207VlcshtpRyvqk valve disorders (2 sources)Nonrheumatic tricuspid (valve) insufficiency; Translations: [Nonrheumatic tricuspid (valve) insufficiency]Onset: 63-23-7433GdxiabzLfrryjkovb disorders (20 sources)Perimenopausal disorder; Translations: [Unspecified menopausal and perimenopausal disorder]Onset: 786198-64-0764JgeuzbbHipxoqxlle disorders (4 sources)Postmenopausal state; Translations: [Hormone replacement therapy] 87-30-1487RhspeuafKsipglapfjnls gastroenteritis (16 sources)Chronic diarrhea; Translations: [Noninfective gastroenteritis and colitis, unspecified]Onset: 075837-80-1271KspqkrpyTsdnwbpppyy chest pain (20 sources)Atypical chest pain; Translations: [Other chest pain]Onset: 156959-65-4765PbwlnideJhwnepviufd deficiencies (1 source)Vitamin D deficiency, unspecified; Translations: [VITAMIN D DEFICIENCY UNSPECIFIED]Onset: 44-62-1480DgqwmkgKkzxcpylwcrnwh (20 sources)Osteoarthritis of left hip joint; Translations: [Unilateral primary osteoarthritis, left hip]Onset: 01-07-2021 Resolved: 20-23-6992BevrhmeEiaor connective tissue disease (17 sources)History of total hip arthroplasty; Translations: [Presence of left artificial hip joint]20-29-0372YqmcyujYyuum connective tissue disease (18 sources)Presence of left artificial hip joint; Translations: [Hip joint replacement]34-42-7744RepfazrRqezl connective tissue disease (16 sources)History of total replacement of left hip joint; Translations: [Presence of left artificial hip joint]Onset: 775433-74-2682SzsggwxRtlsb connective tissue disease (20 sources)Foot pain; Translations: [Pain in unspecified foot]12-18-2020 EpisodicOther connective tissue disease (18 sources)Trochanteric bursitis, left hip; Translations: [Enthesopathy of hip region]95-20-1637GpshskrhHzwtp connective tissue disease (4 sources)Trochanteric bursitis of left hip; Translations: [Trochanteric bursitis, left hip]03-18-6830ExkmddrdQxrdx gastrointestinal disorders (7 sources)Non-infective diarrhea; Translations: [Other intestinal malabsorption]43-84-6100HlnzodqPazlq gastrointestinal disorders (3 sources)Other intestinal malabsorption; Translations: [Other specified intestinal malabsorption]13-88-4050DteizcdJexur gastrointestinal disorders (13 sources)Diarrhea; Translations: [Diarrhea, unspecified]12-46-2001Jdjxjpvg Other inflammatory condition of skin (2 sources)Itching ; Translations: [Unspecified pruritic disorder]EpisodicOther lower respiratory disease (2 sources)Dyspnea on exertion; Translations: [Shortness of breath]EpisodicOther nervous system disorders (12 sources)Right tarsal tunnel syndrome; Translations: [Tarsal tunnel syndrome, right lower limb]Onset: 579340-23-1558QkmexysLwzsz nutritional; endocrine; and metabolic disorders (7 sources)Hypomagnesemia; Translations: [Hypomagnesemia]63-31-7478OwpovcfFybdx skin disorders (1 source)Nonscarring hair loss, unspecified; Translations: [NONSCARRING HAIR LOSS UNSPECIFIED]Onset: 76-48-4478JxiyuyglOplbs skin disorders (17 sources)Lump on finger; Translations: [Localized swelling, mass and lump, right upper limb]45-83-7342LczqxpncGzmzr skin disorders (6 sources)Localized swelling, mass and lump, right upper limb; Translations: [Localized superficial swelling,mass, or lump]67-11-4525QcexwrndOfevrvdn codes; unclassified (20 sources)Sleep apnea; Translations: [Sleep apnea, unspecified]08-16-2023 ChronicResidual codes; unclassified (8 sources)Sleep apnea, unspecified; Translations: [Unspecified sleep apnea] 72-04-4914GnleiufJxnvwnlfyav; intervertebral disc disorders; other back problems (7 sources)Other cervical disc degeneration, unspecified cervical region; Translations: [Spondylosis without myelopathy or radiculopathy, cervical region] Onset: 398511-90-6032XdbkntbVbmxfrpiwdr; intervertebral disc disorders; other back problems (6 sources)Cervicalgia; Translations: [Radiculopathy, thoracic region]Onset: 99-61-2791RijcvmilCnveccr disorders (20 sources)Hypothyroidism, unspecified; Translations: [Hypothyroidism]Onset: 60-10-7516OydnyeuSqccludcodqd (1 source)M54.6 - Pain in thoracic spine Past or Other Problems Problem ClassificationProblemDateDocumented DateEpisodic/ChronicAcquired foot deformities (1 source)Flat foot [pes planus] (acquired), right foot; Translations: [FLAT FOOT PES PLANUS ACQ RT FOOT]Onset: 10-78-9516AbaqavruXxlhyww dysrhythmias (3 sources)Tachycardia; Translations: [Tachycardia, unspecified]Onset: 586394-54-1785XjkyttyaAkokq connective tissue disease (4 sources)Posterior tibial tendinitis, right leg; Translations: [POSTERIOR TIBIAL TENDINITIS RT LEG]Onset: 96-48-0117RlledawtZbvuq connective tissue disease (4 sources)Pain in right foot; Translations: [PAIN IN RIGHT FOOT]Onset: 59-62-9596TkzuvxuuUcium connective tissue disease (20 sources)Trochanteric bursitis; Translations: [Trochanteric bursitis, left hip]Onset: 578437-71-0679QgjczzrqNdzjs connective tissue disease (1 source)Muscle pain; Translations: [Myalgia and myositis, unspecified]Onset: 268421-89-5679MobabjntZurtf connective tissue disease (12 sources)Tendinitis of right posterior tibial tendon; Translations: [Posterior tibial tendinitis, right leg]Onset: 404008-38-6197NolygdffDghln gastrointestinal disorders (1 source)Diarrhea, unspecified; Translations: [Diarrhea, unspecified]Onset: 40-33-4441RdzmwfotEplgu lower respiratory disease (2 sources)Other forms of dyspnea; Translations: [Other forms of dyspnea]Onset: 37-46-1586TvjdcurnWxete non-traumatic joint disorders (19 sources)Hip pain; Translations: [Pain in left hip]Onset: 08-28-2023 53-80-5176YzbfglxbGjvbm non-traumatic joint disorders (1 source)Pain in left hipOnset: 01-07-2021 Resolved: 12-76-7398VvrenbseBqblo screening for suspected conditions (not mental disorders or infectious disease) (9 sources)Abnormal findings on diagnostic imaging of other parts of musculoskeletal system; Translations: [Encounter for screening mammogram for malignant neoplasm of breast]Onset: 41-99-1190KhlpcuqwSmwwzowk codes; unclassified (3 sources)Other specified postprocedural states; Translations: [History of arthroplasty of left hip Z98.890]Onset: 01-24-2021 Resolved: 60-70-2323BoxiswbjLlfabjwh codes; unclassified (1 source)Tobacco useOnset: 01-07-2021 Resolved: 20-90-0710GgiqwbgjNdtbkwtp codes; unclassified (1 source)Family history of malignant neoplasm of breast; Translations: [FAMILY HX MALIG NEOPLASM OF BREAST]Onset: 36-82-2903Iefyafmo Results Test NameValueInterpretationReference RangeFacilityOffice Visiton 02-19-2025 Follow-up [id number] Robbie Allison 1955 F Date Provider Department Center 02/19/2025 ABRAM JESSICA CARD [facility] Family History Problem Relation Age of Onset Hypertension Mother Atrial fibrillation Sister Family Status - Relation Status Age at Mother Alive Father Sister Alive Level of Service:[address]858 [place] OFFICE/OUTPATIENT ESTABLISHED LOW MDM 20 MIN Reason for Visit and Comments: Follow-up [847845] - Patient is here today for a 6 month follow up appointment. Patient states since she started the flecainide she is no longer feeling any palpitations/racing heart. Patient denies any cardiac complaints at this time Mild pulmonary hypertension [Other] Hypertension [975720] Valve Disorder [3372] - Aortic valve disorder Hyperlipidemia [182] Palpitations [926193]NormalUniversity of Cadet Medical CenterMR thoracic spine wo conon 57-59-7052BV thoracic spine wo [facility] [place] [address] [place] [address] MRI Report Signed Patient: Robbie Allison MR#: [id number] : 1955 Acct:[id number] Age/Sex: 69 / F ADM Date: 12/03/24 [facility] CLI Attending Dr: Rio Ambriz MD Copies to: Rio Ambriz MD Ordering Provider: Rio Ambriz MD Date of Service: 12/03/24 MR/MR thoracic spine wo con: M54.14 MRI thoracic spine performed without contrast INDICATION: Mid back pain for 2 months, no known injury COMPARISON: Thoracic spine x-rays 11/15/2024 FINDINGS: Thoracic vertebral body heights are maintained without evidence of abnormal marrow signal edema to suggest acute compression fracture. Moderate severe multilevel intervertebral space narrowing T1-T12. Multilevel bone marrow degenerative endplate marrow changes greatest from T5 through through T12. Multilevel facet arthropathy identified appearing moderate involving upper thoracic spine from C7 through T4. T1-T4: Mild broad-based disc bulges and moderate facet arthropathy. This results in moderate to severe foraminal narrowing from T1 through T3 and moderate right-sided foraminal narrowing at T3-T4. Otherwise the canal is patent. T4-6: Broad-based disc osteophyte complexes with mild facet arthropathy. Mild neural foraminal narrowing. T6-T9: Broad-based disc ossified complex with moderate facet arthropathy. This results in moderate foraminal narrowing. T9-L1: Broad-based disc osteophyte complexes with moderate facet arthropathy. This results in moderate severe neural foraminal narrowing at T9-T10, moderate severe right foraminal narrowing at T10-11 and moderate right foraminal narrowing at T11-T12. Mild degenerative changes elsewhere. MR/MR thoracic spine wo con IMPRESSION: Overall moderate multilevel degenerative change without high-grade canal narrowing. Neural foraminal narrowing greatest upper and lower thoracic spine from T1 through T4 and from T9 through T11 as detailed above. Impression dictated by: Travon Abrams M.D. 12/03/2024 11:02 AM Dictation Location: [place] [address] Transcribed By: [facility] 12/03/24 1102 Dictated By: Travon Abrams MD 12/03/24 1052 Signed By: 12/03/24 [facility] Physician GroupIngnetic resonance imaging reportOrdered By: Travon Abrams on 68-91-1312Zexuw reportHOLZER HOSPITAL Main [place] [address] [place] [address] MRI Report Signed Patient: Robbie Allison MR#: [id number] : 1955 Acct:[id number] Age/Sex: 69 / F ADM Date: 5 [facility] Type: [facility] Attending Dr: Rio Ambriz MD Copies to: Rio Ambriz MD~ Ordering Provider: Rio Ambriz MD Date of Service: 12/03/24 MR/MR thoracic spine wo con: M54.14 MRI thoracic spine performed without contrast INDICATION: Mid back pain for 2 months, no known injury COMPARISON: Thoracic spine x-rays 11/15/2024 FINDINGS: Thoracic vertebral body heights are maintained without evidence of abnormal marrow signaledema to suggest acute compression fracture. Moderate severe multilevel intervertebral space narrowing T1-T12. Multilevel bone marrowdegenerative endplate marrow changes greatest from T5 through through T12. Multilevel facet arthropathy identified appearing moderate involving upper thoracic spine from C7 through T4. T1-T4: Mild broad-based disc bulges and moderate facet arthropathy. This results in moderate to severe foraminal narrowing from T1 through T3 and moderate right-sided foraminal narrowing at T3-T4. Otherwise the canal is patent. T4-6: Broad-based disc osteophyte complexes with mild facet arthropathy. Mild neural foraminal narrowing. T6-T9: Broad-based disc ossified complex with moderate facet arthropathy. This results in moderate foraminal narrowing. T9-L1: Broad-based disc osteophyte complexes with moderate facet arthropathy. This results in moderate severe neural foraminal narrowing at T9-T10, moderate severe right foraminal narrowing at Z99-11ndt moderate right foraminal narrowing at T11-T12. Mild degenerative changes elsewhere. MR/MR thoracic spine wo con IMPRESSION: Overall moderate multilevel degenerative change without high-grade canal narrowing. Neural foraminal narrowing greatest upper and lower thoracic spine from T1 through T4 and from T9 through T11 as detailed above. Impression dictated by: Travon Abrams M.D. 12/03/2024 11:02 AM Dictation Location: [facility]-23 Transcribed By: LUIZA 12/03/24 1102 Dictated By: Travon Abrams MD 12/03/24 1052 Signed By: 12/03/24 110 [facility] Work Phone: X-ray reportOrdered By: Thomas Delgado on 11-15-2024 [facility] Main [place] [id number] XRay Report Signed Patient: Robbie Allison MR#: [id number] : 1955 Acct:[id number] Age/Sex: 69 / F ADM Date: 5 Loc: XD Room: Type: [facility] Attending Dr: Rio Ambriz MD Copies to: Rio Ambriz MD~ Ordering Provider: Rio Ambriz MD Date of Service: 11/15/24 XR/XR thoracic spine 3V*: M54.14 THORACIC SPINE - - 3 views CLINICAL HISTORY: Left-sided mid back clicking for several months COMPARISON: None FINDINGS: Scoliosis with multilevel degenerative changes. Vertebral body heights appear maintained. Pedicles appear intact. XR/XR thoracic spine 3V* IMPRESSION: SCOLIOSIS WITH MULTILEVEL DEGENERATIVE CHANGE. Impression dictated by: Thomas Delgado Jr., D.OSabrina 11/15/2024 1:20 PM Dictation Location: [facility]18 Transcribed By: LUIZA 11/15/24 1320 Dictated By: Thomas Delgado Jr, DO 11/15/24 1320 Signed By: 11/15/24 1320 [facility] HospitalXR [facility] 3V*on 16-68-8829QE thoracic spine 3V*[facility] [address] [address] XRay Report Signed Patient: Robbie Allison MR#: [id number] : 1955 Acct:[id number] Age/Sex: 69 / F ADM Date: 11/15/24 Loc: XD Room: Type: [facility] Attending Dr: Rio Ambriz MD Copies to: Rio Ambriz MD Ordering Provider: Rio Ambriz MD Date of Service: 11/15/24 XR/XR thoracic spine 3V*: M54.14 THORACIC SPINE - - 3 views CLINICAL HISTORY: Left-sided mid back clicking for several months COMPARISON: None FINDINGS: Scoliosis with multilevel degenerative changes. Vertebral body heights appear maintained. Pedicles appear intact. XR/XR thoracic spine 3V* IMPRESSION: SCOLIOSIS WITH MULTILEVEL DEGENERATIVE CHANGE. Impression dictated by: Thomas Delgado Jr., D.O. 11/15/2024 1:20 PM Dictation Location: [facility] Transcribed By: [facility] 11/15/24 1320 Dictated By: Thomas Delgado Jr, DO 11/15/24 1320 Signed By: 11/15/[address] [place] [address] Physician GroupFollow-Upon 18-16-8895Gyimwm-Up [id number] Robbie Allison 1955 Date Provider Department Center 09/22/2024 28910-AMTTLISE BERRY HVC CARD MA [facility] Family History Problem Relation Age of Onset Hypertension Mother Atrial fibrillation Sister Family Status - Relation Status Age at Mother Sister Alive Level of Service:[address]26 [place] OFFICE/OUTPATIENT ESTABLISHED MOD [facility] 30 MIN Reason for Visit and Comments: PVC [Other] - Patient complaint ankle edema occ and occ palpitationsNoAdena Health SystemFollow-Upon [id number] Robbie Allison 1955 Date Provider Department Center 08/14/2024 87375-DUTQLISE BERRY HVC CARD MA [facility] Family History Problem Relation Age of Onset Hypertension Mother Atrial fibrillation Sister Family Status - Relation Status Age at Mother Sister Alive Level of Service:[address]134 [place] OFFICE/OUTPATIENT ESTABLISHED MOD MDM 30 MINNoAdena Health SystemANESon 27-95-3560NLPW Attestation signed by Mirza Newton MD at 07/31/2024 9:52 AM Mirza Newton MD, MPH, [facility], [facility], [facility] Interventional Cardiology Pager Email: [email or web address] Patient: Sheridan Allison Procedure Information Date/Time: 07/31/2409 Procedure: Coronary angiography Location: [facility] / [facility] VASCULAR LAB (Cath) Providers: Mirza Newton MD Clinical information reviewed: [facility] Med Physical Exam Airway Mallampati: III Cardiovascular Rhythm: regular Rate: normal (-) murmur Dental Pulmonary Breath sounds clear to auscultation (-) decreased breath sounds Abdominal (+) obese Anesthesia Plan ASA 3 other (Conscious Sedation ) intravenous induction Anesthetic plan and risks discussed with patient. Use of blood products discussed with patient who consented to blood products. Plan discussed with attending. Additional Equipment RequestsNormalUniversity of [facility] [id number] Attestation signed by Mirza Newton MD at 07/31/2024 9:52 AM Mirza Newton MD, MPH, [facility], [facility], [facility] Interventional Cardiology Pager Email: [email or web address] H&P reviewed. The patient was examined and there are no changes to the H&P. Proceed with CORS due to palpitations, chest pressure and PVCs suspecting stable angina. Amy Wei MD PGY-5 Set Decorator [facility] Pager # [phone] of [facility]edo Medical CenterNURSNOTEon 86-40-1940KREXOQPPFC educated pt on d/c instructions. This included: site care, limited physical activity, resume normal diet, future appointments, medications, and moderate sedation instructions. RN educated pt on when to notify physician and when to go to the hospital. RN provided pt with arm sling and educated pt on importance of not using arm for 24 hours for radial sites. RN encouraged pt to voice any questions or concerns, and answered any questions or concerns if pt verbalized. Pt was wheeled off of unit with all of belongings.NormalUnCoshocton Regional Medical CenterBasic Metabolic Panelon 06-52-2041Wgkgj gap [Moles/Vol]12.5 mmol/L Normal6.0-15.0The [facility] Physician GroupComment on above:Performed By: #### CBC, BMP ####[facility] [address] [place] [address] USACalcium [Mass/Vol]9.0 mg/dLNormal8.6-10.3The [facility] Physician GroupComment on above:Result Comment: PERFORMED BY: [facility] [address] [place] [address] PATHOLOGIST COACH DRIVER YAMEL MITCHELL M.D.Performed By: #### CBC, BMP ####[place] [address] [place] [address] USAChloride [Moles/Vol]102 mmol/L Otzola04-497Atz [facility] Physician GroupComment on above:Performed By: #### CBC, BMP ####[address] [address] USACO2 [Moles/Vol]26.6 mmol/QFmnokx78.0-31.0The [facility] Physician GroupComment on above:Performed By: #### CBC, BMP ####[address] [address] USACreatinine [Mass/Vol]0.82 mg/dLNormal0.60-1.20 The [facility] Physician GroupComment on above:Performed By: #### CBC, BMP ####[place] [address] [place] GFR/1.73 sq M.predicted MDRD (S/P/Bld) [Vol rate/Area]mL/min/{1.73_m2}NormalThe [facility] Physician GroupComment on above:Performed By: #### CBC, BMP ####[address] [address] USAGlucose [Mass/Vol]101 mg/kTVsaj27-152Kzu [facility] Physician GroupComment on above: Result Comment: Random Glucose Reference Range is dependent on time and content of last meal. Glucose of more than 200 mg/dL in a nonstressed, ambulatory subject supports the diagnosis of Diabetes Mellitus. ADA recommended reference rangePerformed By: #### CBC, BMP ####[address] [address] USAPotassium [Moles/Vol] 4.1 mmol/LNormal3.5-5.1The [facility] Physician GroupComment on above:Performed By: #### CBC, BMP ####[address] [address] USASodium [Moles/Vol]137 mmol/HRqtioe496-441Mtv [facility] Physician GroupComment on above:Performed By: #### CBC, BMP ####[facility] [address] [place] [address] USAUrea nitrogen [Mass/Vol]17 mg/dL Normal7-25The [facility] Physician GroupComment on above:Performed By: #### CBC, BMP ####[facility] [place] [address] [place] Basophils Auto (Bld) [#/Vol]Ordered By: Ehab Eltahawy on 04-76-1047Pvxivaxlh (Bld) [#/Vol]Automated basophil count0.0-0.2FBarney Children's Medical Center Basophils/100 WBC Auto (Bld)Ordered By: Ehab Eltahawy on 43-01-7349Hnhxlogug/100 WBC (Bld)Automated basophil %.[facility] HospitalCalcium [Mass/volume] in Serum or PlasmaOrdered By: Ehab Eltahawy on 27-04-7705Cikytik [Mass/Vol]Calcium [Mass/volume] in Serum or Plasma8.6-10.3FBarney Children's Medical CenterCarbon dioxide, total [Moles/volume] in Serum or PlasmaOrdered By: Ehab Eltahawy on 79-06-7622ZK9 [Moles/Vol]Carbon dioxide, total [Moles/volume] in Serum or Wxdhdp24.0-31.0[facility] F[facility] HospitalChloride [Moles/volume] in Serum or PlasmaOrdered By: Ehab Eltahawy on 07-63-0286Jxkmqamp [Moles/Vol]Chloride [Moles/volume] in Serum or Sddnxn61-233JzjsibaidPromedica Flower HospitalComplete Blood Count Auto Diffon 15-98-4586Faiqlkhyf (Bld) [#/Vol] 0.1 10*3/uLNormal0.0-0.2The [facility] Physician GroupComment on above:Result Comment: PERFORMED BY: [facility] [address] [place] [address] PATHOLOGIST COACH DRIVER YAMEL MITCHELL M.D.Performed By: #### CBC, BMP ####[place] [address] [place] [address] USABasophils/100 WBC (Bld)1.3 % Normal.The [facility] Physician GroupComment on above:Performed By: #### CBC, BMP ####[address] Eosinophils (Bld) [#/Vol]0.1 10*3/uLNormal0.0-0.45The [facility] Physician Group Comment on above:Performed By: #### CBC, BMP ####[place] [address] USAEosinophils/100 WBC (Bld)1.5 %Normal. The [facility] Physician GroupComment on above:Performed By: #### CBC, BMP ####[address] Erythrocyte distribution width (RBC) [Ratio]12.3 %Ylmpfh97.9-15.3The [facility] Physician GroupComment on above:Performed By: #### CBC, BMP ####[place] [address] USAHematocrit (Bld) [Volume fraction]38.0 %Iuffnr86.0-46.4The [facility] Physician GroupComment on above:Performed By: #### CBC, BMP ####[place] [address] USAHemoglobin (Bld) [Mass/Vol]12.9 g/aMJdpmyg30.8-15.4 The [facility] Physician GroupComment on above:Performed By: #### CBC, BMP ####[address] Lymphocytes (Bld) [#/Vol]1.3 10*3/uLNormal1.00-4.8The [facility] Physician Group Comment on above:Performed By: #### CBC, BMP ####[place] [address] USALymphocytes/100 WBC (Bld)27.6 %Normal. The [facility] Physician GroupComment on above:Performed By: #### CBC, BMP ####[address] StreetMCH (RBC) [Entitic mass]35.0 miEhgy81.7-34.3The [facility] Physician GroupComment on above:Performed By: #### CBC, BMP ####[address]V (RBC) [Entitic vol]103.4 yWOovq82-508Wap [facility] Physician GroupComment on above:Performed By: #### CBC, BMP ####[place] [address] USAMean Corpuscular HGB Conc33.9 g/tNHgzfne15.0-35.0The [facility] Physician GroupComment on above:Performed By: #### CBC, BMP ####[place] [address] USAMonocytes (Bld) [#/Vol]0.4 10*3/uLNormal 0.0-0.8The [facility] Physician GroupComment on above:Performed By: #### CBC, BMP ####[place] [address] [place] Monocytes/100 WBC (Bld)9.3 %Normal.The [facility] Physician GroupComment on above:Performed By: #### CBC, BMP ####[place] [address] USANeutrophils (Bld) [#/Vol]2.8 10*3/uLNormal1.8-7.7The [facility] Physician GroupComment on above:Performed By: #### CBC, BMP ####[place] [address] [place] Neutrophils/100 WBC (Bld)60.3 %Normal.The [facility] Physician GroupComment on above:Performed By: #### CBC, BMP ####[place] [address] USANRBC%0.1 /100{WBC}Normal0-0.5The [facility] Physician GroupComment on above:Performed By: #### CBC, BMP ####[address] [place] [address] USAPlatelet mean volume (Bld) [Entitic vol]8.3 fLNormal6.3-10.7The [facility] Physician GroupComment on above: Performed By: #### CBC, BMP ####[address] [address] USAPlatelets (Bld) [#/Vol]202 10*3/aCZysuzk304-581Oyj [facility] Physician GroupComment on above:Performed By: #### CBC, BMP ####[address] [address] USARBC (Bld) [#/Vol]3.68 10*6/uLNormal3.60-5.00The [facility] Physician GroupComment on above:Performed By: #### CBC, BMP ####[address] [address] USAWBC (Bld) [#/Vol]4.7 10*3/uLNormal3.8-11.6The [facility] Physician GroupComment on above:Performed By: #### CBC, BMP ####[place] [id number] [place] Creatinine [Mass/volume] in Serum or PlasmaOrdered By: Mirza Newton on 74-41-3142Uuwksqtrip [Mass/Vol]Creatinine [Mass/volume] in Serum or Plasma 0.60-1.20[facility] HospitalEosinophils Auto (Bld) [#/Vol]Ordered By: Rosalinoab Ricktarachel on 34-14-9949Wajuxtbdutp (Bld) [#/Vol]Automated eosinophil count0.0-0.45[facility] HospitalEosinophils/100 WBC Auto (Bld) Ordered By: Rosalinoab Ricktahawcarolyne on 59-47-2150Erfijigrhhw/100 WBC (Bld)Automated eosinophil %.[facility] HospitalErythrocyte distribution width Auto (RBC) [Ratio]Ordered By: Mirza Cabreratahawcarolyne on 98-42-6859Yfehopldnox distribution width (RBC) [Ratio]Erythrocyte distribution width [Ratio] by Automated count11.9-15.3FBarney Children's Medical CenterGlucose [Mass/volume] in Serum or PlasmaOrdered By: Mirza Newton on 02-27-9171Zzpzwcj [Mass/Vol] Glucose [Mass/volume] in Serum or QsucmfUnwj38-864ZhcwmjqzhPromedica Flower HospitalComment on above:ADA recommended reference rangeRandom Glucose Reference Range is dependent on time and content of last meal. Glucose of more than 200 mg/dL in a nonstressed, ambulatory subject supports the diagnosisof Diabetes Mellitus.Hematocrit Auto (Bld) [Volume fraction]Ordered By: Mirza Newton on 07-30-3125Hxkyrqmnty (Bld) [Volume fraction]Hematocrit [Volume Fraction] of Blood by Automated count34.0-46.4FBarney Children's Medical CenterHemoglobin [Mass/volume] in BloodOrdered By: Mirza Newton on 58-14-4495Zbbjojvlqa (Bld) [Mass/Vol]Hemoglobin [Mass/volume] in Blood11.8-15.4FBarney Children's Medical CenterLeukocytes [#/volume] corrected for nucleated erythrocytes in Blood by Automated counOrdered By: Mirza Newton on 57-18-0824LGE corrected for nucl RBC Auto (Bld) [#/Vol]Leukocytes [#/volume] corrected for nucleated erythrocytes in Blood by Automated coun3.8-11.6FBarney Children's Medical CenterLymphocytes Auto (Bld) [#/Vol]Ordered By: Mirza Newton on 43-31-9747Gkekuoyuyle (Bld) [#/Vol] Lymphocytes [#/volume] in Blood by Automated count1.00-4.8[facility] HospitalLymphocytes/100 WBC Auto (Bld)Ordered By: Mirza Newton on 57-53-1123Oorvpdlstma/100 WBC (Bld)Lymphocytes/100 leukocytes in Blood by Automated count.[facility] HospitalH Auto (RBC) [Entitic mass] Ordered By: Mirza Newton on 41-08-6637XZS (RBC) [Entitic mass]MCH [Entitic mass] by Automated kwfxxFvme85.7-34.3FBarney Children's Medical CenterMCHC Auto (RBC) [Mass/Vol]Ordered By: Mirza Newton on 14-96-0300LXTN (RBC) [Mass/Vol]MCHC [Mass/volume] by Automated count32.0-35.0[facility] HospitalMCV Auto (RBC) [Entitic vol]Ordered By: Mirza Newton on 04-84-9526QWS (RBC) [Entitic vol]MCV [Entitic volume] by Automated fbbdjNdpg16-970QqtgttgewPromedica Flower HospitalMonocytes Auto (Bld) [#/Vol]Ordered By: Mirza Newton on 02-41-2964Xfljiqjsi (Bld) [#/Vol]Automated blood monocyte count0.0-0.8[facility] HospitalMonocytes/100 WBC Auto (Bld)Ordered By: Mirza Newton on 71-89-5920Xyyfzlaqn/100 WBC (Bld)Automated monocyte %.[facility] HospitalNeutrophils Auto (Bld) [#/Vol]Ordered By: Mirza Newton on 07-29-2024 Neutrophils (Bld) [#/Vol]Neutrophils [#/volume] in Blood by Automated count 1.8-7.7FBarney Children's Medical CenterNeutrophils/100 WBC Auto (Bld)Ordered By: ab Newton on 56-53-6639Noqqayyoljq/100 WBC (Bld)Automated neutrophil %. [facility] HospitalNo Panel InformationOrdered By: Mirza Newton on 73-01-8407Vecwnxpvg GFR (CKD-EPI)> 60.0 mL/MinPromedica Flower HospitalPharmacy Creatinine Clearance (ChemN/AFBarney Children's Medical Center Nucleated erythrocytes [Presence] in Blood by Automated countOrdered By: Mirza Newton on 74-14-6404Xwozvaphy RBC Auto Ql (Bld)Nucleated erythrocytes [Presence] in Blood by Automated count0-0.5FBarney Children's Medical Center Platelet mean volume Auto (Bld) [Entitic vol]Ordered By: Mirza Newton on 40-41-4977Izvymwkp mean volume (Bld) [Entitic vol]Platelet mean volume [Entitic volume] in Blood by Automated count6.3-10.7FBarney Children's Medical Center Platelets Auto (Bld) [#/Vol]Ordered By: Mirza Newton on 59-99-2414Pxjzgqsyz (Bld) [#/Vol]Platelets [#/volume] in Blood by Automated mxlxy219-724ZfigmqacgPromedica Flower HospitalPotassium [Moles/volume] in Serum or PlasmaOrdered By: Mirza Cabreratahawcarolyne on 46-43-4926Cqztexemu [Moles/Vol]Potassium [Moles/volume] in Serum or Plasma3.5-5.1FBarney Children's Medical CenterRBC Auto (Bld) [#/Vol] Ordered By: Mirza Newton on 36-44-5521HFJ (Bld) [#/Vol]Erythrocytes [#/volume] in Blood by Automated count3.60-5.00[facility] Hospitalerum or plasma anion gap determinationOrdered By: Mirza Newton on 11-00-4553Afnbf gap [Moles/Vol]Serum or plasma anion gap determination6.0-15.0[facility] Hospitalodium [Moles/volume] in Serum or PlasmaOrdered By: Mirza Newton on 56-00-3633Egxlkx [Moles/Vol]Sodium [Moles/volume] in Serum or Hluaay130-815 [facility] HospitalUrea nitrogen [Mass/volume] in Serum or Plasma Ordered By: Mirza Newton on 75-48-5547Rxya nitrogen [Mass/Vol]Urea nitrogen [Mass/volume] in Serum or Plasma7-25Prom[facility] HospitalWBC Auto (Bld) [#/Vol]Ordered By: Mirza Newton on 92-17-6409ALH (Bld) [#/Vol]Leukocytes [#/volume] in Blood by Automated count3.8-11.6FBarney Children's Medical Center HPon 37-60-5333IDPDBWYHTS CLINIC Cardiology Clinic Note Chief Complaint: Follow up [facility] and 48 hour holter monitor. Patient states she went to the ER for palpatations and dizziness. Patient states the palpatation are a daily. Patient states she stopped taking her Lisinopril due to it making her blood pressure to low. Patient states she has chest pressure that comes and goes. Denies, Swelling in legs. HPI: Robbie Allison is a 67 y.o. female with past [...] have foot surgery in the near future. UPDATE 03/24/2024 Her shortness of breath has improved on inhaler therapy but still persists Denies chest pain No orthopnea, no paroxysmal tunnel dyspnea, no lower extremity edema UPDATE 07/14/2024 She had episodes of significant palpitations associated with chest pressure, and significant lightheadedness. She was seen in the emergency room. She was given a Holter monitor which revealed a significant burden of PVCs. She still has chest pressure with exertion. It is different than her shortness of breath associated with her asthma. Cardiology ROS: Review of Systems Cardiovascular: Positive for chest pain (describes as a pressure that comes and goes), dyspnea on exertion (less frequent) and palpitations (that occure everyday). Neurological: Positive for numbness. All other systems reviewed and are negative. Past Medical History She has a past medical history of Asthma, GERD (gastroesophageal reflux disease), Hyperlipidemia, Hypertension, Hypothyroidism, and RA (rheumatoid arthritis) ([facility]). Surgical History She has a past surgical history that includes Replacement total hip lateral position; Tibia / fibia lengthening; Hysterectomy; and Breast biopsy. Social History She reports that she has quit smoking. Her smoking use included cigarettes. She has never used smokeless tobacco. She reports current alcohol use. No history on file for drug use. Family History Family History Problem Relation Name Age of Onset Hypertension Mother Atrial fibrillation Sister Allergies Fentanyl, Hydromorphone, Penicillins, and Sulfanilamide Medications Current Outpatient Medications: Advair Diskus 250-50 mcg/dose diskus inhaler, , Disp: , Rfl: amLODIPine (Norvasc) 5 mg tablet, Take 1 tablet (5 mg) by mouth once daily as directed., Disp: 90 tablet, Rfl: 3 Atrovent HFA 17 mcg/actuation inhaler, INHALE 2 PUFFS FOUR TIMES DAILY, Disp: , Rfl: carisoprodol (Soma) 350 mg tablet, 2 tablets 1 (one) time each day., Disp: , Rfl: carvedilol (Coreg) 25 mg [...] Take 40 mg by mouth in the morning., Disp: , Rfl: omeprazole (PriLOSEC) [address] capsule, , Disp: , Rfl: oxaprozin (Daypro) 600 mg tablet, Take 600 mg by mouth in the morning and at bedtime., Disp: , Rfl: simvastatin (Zocor) 20 mg tablet, 1 tablet in the evening Orally Once a day, Disp: , Rfl: Synthroid 50 mcg tablet, , Disp: , Rfl: Last Recorded Vitals BP (!) 138/99 (BP Location: Right arm, Patient Position: Sitting) Pulse 81 Ht 1.702 m (5' 7 ) Wt 81.6 kg (180 lb) SpO2 99% BMI 28.19 kg/m??? Physical Examination: GENERAL: alert and oriented [...] equal and symmetric in bilateral upper and l (more content not included)...NormalUnCoshocton Regional Medical CenterOffice Visiton 93-98-6921Xeqmcb-up [id number] Robbie Allison 1955 F Date Provider Department Center 07/14/2024 Erickson-MIRZA NEWTON ALEXANDRA Beneidct Family History Problem Relation Age of Onset Hypertension Mother Atrial fibrillation Sister Family Status - Relation Status Age at Mother Sister Alive Level of Service:[address] [place] OFFICE/OUTPATIENT ESTABLISHED HIGH MDM 40 [facility] HospitalOrders Onlyon 63-57-9858Ulidcf [id number] Robbie Allison 1955 Date Provider Department Center 07/14/2024 AMADO HERNANDEZ Family History Problem Relation Age of Onset Hypertension Mother Atrial fibrillation Sister Family Status - Relation Status Age at Mother Sister AliveNormalUniSelect Medical [facility] Hospital, BeachwoodCA holter monitor recording on 47-91-2782JC holter monitor recordingHOLZER [place] [address] Holter Monitor Report Signed Patient: Robbie Allison MR#: [id number] : 1955 Acct:[id number] Age/Sex: 69 / F ADM Date: 07/07/24 Loc: Room: Type: [facility] Attending Dr: Rio Ambriz MD Copies to: MD Penny Ly MD Ordering Provider: Rio Ambriz MD Date of Service: 07/07/24 CA/CA holter monitor recording: palpitaions REFERRING PHYSICIAN: Rio Ambriz MD REASON FOR STUDY: Palpitation. PROCEDURE: The patient underwent 48-hour Holter monitor. Baseline rhythm is sinus with average heart rate of 89 beats per minute, ranging from 71-129 beats per minute. There were a total of 43,856 isolated monomorphic ventricular ectopic beats. There were a total of 46 isolated supraventricular ectopic beats. There were a few episodes of bigeminy or trigeminy. The patient entered symptoms of palpitation, dizziness, shortness of breath, seemed to occur during her baseline rhythm of sinus with frequent PVCs. CONCLUSION: 1. Normal sinus rhythm. 2. Very frequent isolated ventricular ectopic beats totaled almost 17% of all QRS complexes. A few episodes of bigeminy or trigeminy were seen, but no ventricular tachycardia. 3. Rare isolated supraventricular ectopic beats. 4. No significant tachyarrhythmia or bradyarrhythmia. 5. Symptoms of dizziness, palpitation, shortness of breath appeared to occur during her baseline rhythm of sinus with frequent PVCs. Transcribed By: RIK 07/11/24 1549 Dictated By: Penny Gomes MD 07/10/24 1856 Signed By: 07/11/24 1718[facility] Physician GroupAlanine aminotransferase [Enzymatic activity/volume] in Serum or PlasmaOrdered By: iRo Ambriz on 58-09-1361PTK [Catalytic activity/Vol]Alanine aminotransferase [Enzymatic activity/volume] in Serum or Plasma7-52[facility] HospitalAlbumin [Mass/volume] in Serum or Plasma by Bromocresol green (BCG) dye binding metho Ordered By: Rio Ambriz on 63-30-8076Gjouzgl BCG dye [Mass/Vol]Albumin [Mass/volume] in Serum or Plasma by Bromocresol green (BCG) dye binding metho 3.5-5.7FBarney Children's Medical CenterAlkaline phosphatase [Enzymatic activity/volume] in Serum or PlasmaOrdered By: Rio Ambriz on 79-67-8459BBZ [Catalytic activity/Vol]Alkaline phosphatase [Enzymatic activity/volume] in Serum or Dexkoa73-885NpewsyvjjPromedica Flower HospitalAspartate aminotransferase [Enzymatic activity/volume] in Serum or PlasmaOrdered By: Rio Ambriz on 42-21-5260MMO [Catalytic activity/Vol]Aspartate aminotransferase [Enzymatic activity/volume] in Serum or Ycnfue84-69FubppbvmgPromedica Flower Hospital Bilirubin.total [Mass/volume] in Serum or PlasmaOrdered By: Rio Ambriz on 60-79-2402Tezpfkiws [Mass/Vol]Bilirubin.total [Mass/volume] in Serum or Plasma 0.3-1.0[facility] HospitalCalcium [Mass/volume] in Serum or Plasma Ordered By: Rio Ambriz on 13-26-9899Mtgwfyu [Mass/Vol]Calcium [Mass/volume] in Serum or Plasma8.6-10.3FBarney Children's Medical CenterCarbon dioxide, total [Moles/volume] in Serum or PlasmaOrdered By: Rio Ambriz on 82-02-2124SH8 [Moles/Vol]Carbon dioxide, total [Moles/volume] in Serum or Kwgwnu49.0-31.0 [facility] HospitalChloride [Moles/volume] in Serum or Plasma Ordered By: Rio Ambriz on 84-57-2464Obcnbmat [Moles/Vol]Chloride [Moles/volume] in Serum or Zztaxw76-498TqnhtzqdpPromedica Flower HospitalComprehensive Metabolic Panelon 86-11-0513Cqvuyzw [Mass/Vol]4.1 g/dLNormal3.5-5.7The [facility] Physician GroupComment on above:Performed By: #### MG, THYROID SC, CMP ####[place] [address] [place] Albumin/Globulin [Mass ratio]1.6 {ratio}NormalThe [facility] Physician Group Comment on above:Performed By: #### MG, THYROID SC, CMP ####[address] [address] USAALP [Catalytic activity/Vol]60 U/TIcdivu61-209Uvx [facility] Physician GroupComment on above:Performed By: #### MG, THYROID SC, CMP ####[address] [address] USAALT [Catalytic activity/Vol]15 U/LNormal7-52The [facility] Physician GroupComment on above:Performed By: #### MG, THYROID SC, CMP ####[place] [address] [place] [address] USAAnion gap [Moles/Vol] 11.1 mmol/LNormal6.0-15.0The [facility] Physician GroupComment on above:Performed By: #### MG, THYROID SC, CMP ####[address] [address] USAAST [Catalytic activity/Vol]20 U/DSvgole37-93Vyc [facility] Physician GroupComment on above:Performed By: #### MG, THYROID SC, CMP ####[place] [address] [place] Bilirubin [Mass/Vol]0.5 mg/dLNormal0.3-1.0The [facility] Physician GroupComment on above:Performed By: #### MG, THYROID SC, CMP ####[place] [address] USACalcium [Mass/Vol]8.9 mg/dLNormal 8.6-10.3The [facility] Physician GroupComment on above:Performed By: #### MG, THYROID SC, CMP ####[place] [address] USAChloride [Moles/Vol]103 mmol/KJcvxre05-233Sbn [facility] Physician Group Comment on above:Performed By: #### MG, THYROID SC, CMP ####[place] [address] USACO2 [Moles/Vol]27.4 mmol/L Ohexkj86.0-31.0The [facility] Physician GroupComment on above:Performed By: #### MG, THYROID SC, CMP ####[place] [address] USACreatinine [Mass/Vol]0.85 mg/dLNormal0.60-1.20The [facility] Physician GroupComment on above:Performed By: #### MG, THYROID SC, CMP ####[place] [address] USAGFR/1.73 sq M.predicted MDRD (S/P/Bld) [Vol rate/Area]mL/min/{1.73_m2}NormalThe [facility] Physician GroupComment on above:Performed By: #### MG, THYROID SC, CMP ####[place] [address] USAGlobulin (S) [Mass/Vol]2.6 g/dLNormalThe [facility] Physician GroupComment on above: Performed By: #### MG, THYROID SC, CMP ####[place] [address] USAGlucose [Mass/Vol]101 mg/ySQabj81-183Ohr [facility] Physician GroupComment on above:Result Comment: Random Glucose Reference Range is dependent on time and content of last meal. Glucose of more than 200 mg/dL in a nonstressed, ambulatory subject supports the diagnosis of Diabetes Mellitus. ADA recommended reference rangePerformed By: #### MG, THYROID SC, CMP ####[address] Potassium [Moles/Vol]4.5 mmol/LNormal3.5-5.1The [facility] Physician GroupComment on above:Performed By: #### MG, THYROID SC, CMP ####[place] [address] USAProtein [Mass/Vol]6.7 g/dLNormal6.4-8.9 The [facility] Physician GroupComment on above:Performed By: #### MG, THYROID SC, CMP ####[address] Sodium [Moles/Vol]137 mmol/YCtpdrc827-884Cjo [facility] Physician GroupComment on above:Performed By: #### MG, THYROID SC, CMP ####[place] [address] USAUrea nitrogen [Mass/Vol]24 mg/dLNormal 7-25The [facility] Physician GroupComment on above:Performed By: #### MG, THYROID SC, CMP ####[place] [address] USACreatinine [Mass/volume] in Serum or PlasmaOrdered By: Rio Ambriz on 37-47-4501Fglgqrxpda [Mass/Vol]Creatinine [Mass/volume] in Serum or Plasma 0.60-1.20Prom[facility] Flower HospitalGlobulin Calc (S) [Mass/Vol]Ordered By: Rio Ambriz on 35-32-4487[place]uplake (S) [Mass/Vol]Serum globulin measurement by calculation (mass/volume)[facility] HospitalGlucose [Mass/volume] in Serum or PlasmaOrdered By: Rio Ambriz on 99-04-8914Xikzebg [Mass/Vol]Glucose [Mass/volume] in Serum or FpobqfVtzh92-138MwvcqvonyPromedica Flower HospitalComment on above:ADA recommended reference rangeRandom Glucose Reference Range is dependent on time and content of last meal. Glucose of more than 200 mg/dL in a nonstressed, ambulatory subject supports the diagnosisof Diabetes Mellitus.Magnesiumon 05-45-4831Vyltuezkz [Mass/Vol]1.9 mg/dLNormal 1.9-2.7The [facility] Physician GroupComment on above:Performed By: #### MG, THYROID SC, CMP ####[facility] [address] [place] [address] USAMagnesium [Mass/volume] in Serum or PlasmaOrdered By: Rio Ambriz on 14-66-0557Wjyzdxstv [Mass/Vol]Magnesium [Mass/volume] in Serum or Plasma1.9-2.7 [facility] HospitalNo Panel InformationOrdered By: Rio Ambriz on 20-49-5589Qucksspnf GFR (CKD-EPI)> 60.0 mL/MinPromedica Flower Hospital Pharmacy Creatinine Clearance (ChemN/[facility] HospitalPotassium [Moles/volume] in Serum or PlasmaOrdered By: Rio Ambriz on 79-58-9377Ausxjhztk [Moles/Vol]Potassium [Moles/volume] in Serum or Plasma3.5-5.1FBarney Children's Medical CenterProtein [Mass/volume] in Serum or PlasmaOrdered By: Rio Ambriz on 49-37-5653Sbadrsr [Mass/Vol]Protein [Mass/volume] in Serum or Plasma6.4-8.9 [facility] Hospitalerum or plasma albumin/globulin mass ratio Ordered By: Rio Ambriz on 24-48-2365Qnmqgkm/Globulin [Mass ratio]Serum or plasma albumin/globulin mass ratioParma Community General Hospitalerum or plasma anion gap determinationOrdered By: Rio Ambriz on 10-08-3157Crzwj gap [Moles/Vol]Serum or plasma anion gap determination6.0-15.0[facility] Hospitalodium [Moles/volume] in Serum or PlasmaOrdered By: Rio Ambriz on 83-70-8653Nuwndb [Moles/Vol]Sodium [Moles/volume] in Serum or Kzdbzr153-374 [facility]lower HospitalTHYROID SCREENon 88-14-6747Ihwo T4 [Mass/Vol] 0.70 ng/dLNormal0.61-1.12The [facility] Physician GroupComment on above:Performed By: #### MG, THYROID SC, CMP ####[facility] [place] [address] USATSH Qn2.28 m[IU]/LNormal0.45-5.33The [facility] Physician GroupComment on above:Result Comment: PERFORMED BY: [facility] [address] [place] [address] PATHOLOGIST COACH DRIVER YAMEL MITCHELL M.D.Performed By: #### MG, THYROID SC, CMP ####[place] [address] [place] [address] USAThyrotropin [Units/volume] in Serum or PlasmaOrdered By: Rio Ambriz on 71-17-7814PLN Qn Thyrotropin [Units/volume] in Serum or Plasma0.45-5.33[facility]lower HospitalThyroxine (T4) free [Mass/volume] in Serum or PlasmaOrdered By: Rio Ambriz on 61-75-4258Scyw T4 [Mass/Vol]Thyroxine (T4) free [Mass/volume] in Serum or Plasma0.61-1.12[facility]lower HospitalUrea nitrogen [Mass/volume] in Serum or PlasmaOrdered By: Rio Ambriz on 74-66-6976Fkli nitrogen [Mass/Vol]Urea nitrogen [Mass/volume] in Serum or Plasma7[facility] Alanine aminotransferase [Enzymatic activity/volume] in Serum or PlasmaOrdered By: Isidro Sanchez on 60-68-1766GMD [Catalytic activity/Vol]Alanine aminotransferase [Enzymatic activity/volume] in Serum or PlasmaPromedica Flower HospitalAlbumin [Mass/volume] in Serum or Plasma by Bromocresol green (BCG) dye binding methoOrdered By: Isidro Sanchez on 40-40-1464Rbeqciz BCG dye [Mass/Vol]Albumin [Mass/volume] in Serum or Plasma by Bromocresol green (BCG) dye binding metho3.5-5.7FBarney Children's Medical CenterAlkaline phosphatase [Enzymatic activity/volume] in Serum or PlasmaOrdered By: Isidro Sanchez on 17-04-7712CRP [Catalytic activity/Vol]Alkaline phosphatase [Enzymatic activity/volume] in Serum or Ptyypv51-399TmgfslscaPromedica Flower Hospital Aspartate aminotransferase [Enzymatic activity/volume] in Serum or PlasmaOrdered By: Isidro Sanchez on 42-93-7349OZH [Catalytic activity/Vol]Aspartate aminotransferase [Enzymatic activity/volume] in Serum or Ldslrx98-46UccglpuibPromedica Flower HospitalBasophils Auto (Bld) [#/Vol]Ordered By: Isidro Sanchez on 85-04-9526Lajvozcct (Bld) [#/Vol]Automated basophil count0.0-0.2FBarney Children's Medical CenterBasophils/100 WBC Auto (Bld)Ordered By: Isidro Sanchez on 45-05-7588Jkoroohes/100 WBC (Bld)Automated basophil %.[facility] F[facility] HospitalBilirubin.total [Mass/volume] in Serum or PlasmaOrdered By: Isidro Sanchez on 00-71-2653Ijepozclr [Mass/Vol]Bilirubin.total [Mass/volume] in Serum or Plasma0.3-1.0[facility] HospitalCalcium [Mass/volume] in Serum or PlasmaOrdered By: Isidro Sanchez on 50-02-2398Ffycabh [Mass/Vol]Calcium [Mass/volume] in Serum or Plasma8.6-10.3FBarney Children's Medical CenterCarbon dioxide, total [Moles/volume] in Serum or PlasmaOrdered By: Isidro Sanchez on 64-72-1726SX5 [Moles/Vol]Carbon dioxide, total [Moles/volume] in Serum or Plasma 21.0-31.0[facility] Flower HospitalChloride [Moles/volume] in Serum or PlasmaOrdered By: Isidro Sanchez on 50-57-3594Vmbnorki [Moles/Vol]Chloride [Moles/volume] in Serum or Jrajgo99-961PktqukderPromedica Flower HospitalComplete Blood Count Auto Diffon 65-14-1007Dvxelzzfj (Bld) [#/Vol]0.1 10*3/uLNormal 0.0-0.2The [facility] Physician GroupComment on above:Result Comment: PERFORMED BY: [place] [address] PATHOLOGIST COACH DRIVER YAMEL MITCHELL M.D.Performed By: #### MG, CMP, PTT, CK, HS TROP, CBC, PT #### [place] [address] USABasophils/100 WBC (Bld)0.8 %Normal.The [facility] Physician GroupComment on above:Performed By: #### MG, CMP, PTT, CK, HS TROP, CBC, PT #### [place] [address] USAEosinophils (Bld) [#/Vol]0.0 10*3/uLNormal0.0-0.45The [facility] Physician GroupComment on above:Performed By: #### MG, CMP, PTT, CK, HS TROP, CBC, PT #### [place] [address] USAEosinophils/100 WBC (Bld)0.4 %Normal.The [facility] Physician GroupComment on above:Performed By: #### MG, CMP, PTT, CK, HS TROP, CBC, PT #### [place] [address] USAErythrocyte distribution width (RBC) [Ratio]13.1 %Normal 11.9-15.3The [facility] Physician GroupComment on above:Performed By: #### MG, CMP, PTT, CK, HS TROP, CBC, PT #### [place] [address] USAHematocrit (Bld) [Volume fraction]40.5 %Nkuovp95.0-46.4The [facility] Physician GroupComment on above:Performed By: #### MG, CMP, PTT, CK, HS TROP, CBC, PT #### [place] [address] USAHemoglobin (Bld) [Mass/Vol]13.9 g/vDQplwpb86.8-15.4The [facility] Physician GroupComment on above:Performed By: #### MG, CMP, PTT, CK, HS TROP, CBC, PT #### [place] [address] USALymphocytes (Bld) [#/Vol]1.5 10*3/uLNormal1.00-4.8The [facility] Physician GroupComment on above:Performed By: #### MG, CMP, PTT, CK, HS TROP, CBC, PT #### [place] [address] USALymphocytes/100 WBC (Bld)24.5 %Normal.The [facility] Physician GroupComment on above:Performed By: #### MG, CMP, PTT, CK, HS TROP, CBC, PT #### [address]H (RBC) [Entitic mass]35.5 kmEiiq93.7-34.3The [facility] Physician GroupComment on above:Performed By: #### MG, CMP, PTT, CK, HS TROP, CBC, PT #### [place] [address] USAMCV (RBC) [Entitic vol]103.2 iGZznf87-788Bpr [facility] Physician GroupComment on above:Performed By: #### MG, CMP, PTT, CK, HS TROP, CBC, PT #### [place] [address] USAMean Corpuscular HGB Conc34.4 g/sPTiqfgi50.0-35.0The [facility] Physician GroupComment on above:Performed By: #### MG, CMP, PTT, CK, HS TROP, CBC, PT #### [place] [address] USAMonocytes (Bld) [#/Vol]0.5 10*3/uLNormal0.0-0.8The [facility] Physician GroupComment on above:Performed By: #### MG, CMP, PTT, CK, HS TROP, CBC, PT #### [place] [address] USAMonocytes/100 WBC (Bld)17.46 %Normal0.00-20.00The [facility] Physician GroupComment on above:Performed By: #### MG, CMP, PTT, CK, HS TROP, CBC, PT #### [place] [address] USAMonocytes/100 WBC (Bld)7.9 %Normal.The [facility] Physician GroupComment on above:Performed By: #### MG, CMP, PTT, CK, HS TROP, CBC, PT #### [place] [address] USANeutrophils (Bld) [#/Vol]4.1 10*3/uLNormal1.8-7.7The [facility] Physician GroupComment on above:Performed By: #### MG, CMP, PTT, CK, HS TROP, CBC, PT #### [place] [address] USANeutrophils/100 WBC (Bld)66.4 %Normal.The [facility] Physician GroupComment on above:Performed By: #### MG, CMP, PTT, CK, HS TROP, CBC, PT #### [place] [address] USANRBC%0.0 /100{WBC}Normal0-0.5The [facility] Physician Group Comment on above:Performed By: #### MG, CMP, PTT, CK, HS TROP, CBC, PT #### [place] [address] USAPlatelet mean volume (Bld) [Entitic vol]8.1 fLNormal 6.3-10.7The [facility] Physician GroupComment on above:Performed By: #### MG, CMP, PTT, CK, HS TROP, CBC, PT #### [place] [address] USAPlatelets (Bld) [#/Vol]194 10*3/nEKymrle761-940Hmw [facility] Physician GroupComment on above:Performed By: #### MG, CMP, PTT, CK, HS TROP, CBC, PT #### [place] [address] USARBC (Bld) [#/Vol]3.92 10*6/uLNormal3.60-5.00The [facility] Physician GroupComment on above:Performed By: #### MG, CMP, PTT, CK, HS TROP, CBC, PT #### [place] [address] USAWBC (Bld) [#/Vol]6.1 10*3/uLNormal3.8-11.6The [facility] Physician GroupComment on above:Performed By: #### MG, CMP, PTT, CK, HS TROP, CBC, PT #### [place] [address] USAComprehensive Metabolic Panelon 12-60-3230Jggwlky [Mass/Vol]4.3 g/dLNormal3.5-5.7The [facility] Physician GroupComment on above: Performed By: #### MG, CMP, PTT, CK, HS TROP, CBC, PT #### [place] [address] USAAlbumin/Globulin [Mass ratio]1.4 {ratio}NormalThe [facility] Physician GroupComment on above:Performed By: #### MG, CMP, PTT, CK, HS TROP, CBC, PT #### [place] [address] USAALP [Catalytic activity/Vol]54 U/XFjruce64-132Rad [facility] Physician GroupComment on above:Performed By: #### MG, CMP, PTT, CK, HS TROP, CBC, PT #### [place] [address] USAALT [Catalytic activity/Vol]16 U/LNormal7-52The [facility] Physician GroupComment on above:Performed By: #### MG, CMP, PTT, CK, HS TROP, CBC, PT #### [place] [address] USAAnion gap [Moles/Vol]14.7 mmol/LNormal6.0-15.0The [facility] Physician GroupComment on above:Performed By: #### MG, CMP, PTT, CK, HS TROP, CBC, PT #### [place] [address] USAAST [Catalytic activity/Vol]20 U/PQwzxcw61-79Qjf [facility] Physician GroupComment on above:Performed By: #### MG, CMP, PTT, CK, HS TROP, CBC, PT #### [facility] [address] [place] [address] USABilirubin [Mass/Vol]0.4 mg/dLNormal0.3-1.0The [facility] Physician GroupComment on above:Performed By: #### MG, CMP, PTT, CK, HS TROP, CBC, PT #### [place] [address] USACalcium [Mass/Vol]9.6 mg/dLNormal8.6-10.3The [facility] Physician GroupComment on above:Performed By: #### MG, CMP, PTT, CK, HS TROP, CBC, PT #### [place] [address] USAChloride [Moles/Vol]102 mmol/AQpkexw98-666Uyg [facility] Physician GroupComment on above:Performed By: #### MG, CMP, PTT, CK, HS TROP, CBC, PT #### [facility] [address] [place] [address] USACO2 [Moles/Vol]23.6 mmol/ILgtpnn61.0-31.0The [facility] Physician GroupComment on above:Performed By: #### MG, CMP, PTT, CK, HS TROP, CBC, PT #### [place] [address] USACreatinine [Mass/Vol]0.94 mg/dLNormal0.60-1.20The [facility] Physician GroupComment on above:Performed By: #### MG, CMP, PTT, CK, HS TROP, CBC, PT #### [place] [address] USACreatinine Clr Calc Ixutblde44.95NormHCA Florida [facility]FK Hospital Physician GroupComment on above:Performed By: #### MG, CMP, PTT, CK, HS TROP, CBC, PT #### [facility] [address] [place] [address] USAGFR/1.73 sq M.predicted MDRD (S/P/Bld) [Vol rate/Area] mL/min/{1.73_m2}NormalThe [facility] Physician GroupComment on above:Performed By: #### MG, CMP, PTT, CK, HS TROP, CBC, PT #### [facility] [address] [place] [address] USAGlobulin (S) [Mass/Vol]3.0 g/dLUniversity of [facility] Hospital Physician GroupComment on above:Performed By: #### MG, CMP, PTT, CK, HS TROP, CBC, PT #### [facility] [address] [place] [address] USAGlucose [Mass/Vol]89 mg/yMRgtuev50-812Vrg [facility] Physician GroupComment on above:Result Comment: Random Glucose Reference Range is dependent on time and content of last meal. Glucose of more than 200 mg/dL in a nonstressed, ambulatory subject supports the diagnosis of Diabetes Mellitus. ADA recommended reference rangePerformed By: #### MG, CMP, PTT, CK, HS TROP, CBC, PT #### [facility] [address] [place] [address] USAPotassium [Moles/Vol]4.3 mmol/LNormal3.5-5.1The [facility] Physician GroupComment on above:Performed By: #### MG, CMP, PTT, CK, HS TROP, CBC, PT #### [facility] [address] [place] [address] USAProtein [Mass/Vol]7.3 g/dLNormal6.4-8.9The [facility] Physician GroupComment on above:Performed By: #### MG, CMP, PTT, CK, HS TROP, CBC, PT #### [facility] [address] [place] [address] USASodium [Moles/Vol]136 mmol/YZsmudp734-297Nfq [facility] Physician GroupComment on above:Performed By: #### MG, CMP, PTT, CK, HS TROP, CBC, PT #### [facility] [address] [place] [address] USAUrea nitrogen [Mass/Vol]23 mg/dLNormal7-e [facility] Physician GroupComment on above:Performed By: #### MG, CMP, PTT, CK, HS TROP, CBC, PT #### [facility] [address] [place] [address] USACreatine Kinaseon 58-52-7099GF [Catalytic activity/Vol]75 U/EAxwohs57-098Pvf [facility] Physician GroupComment on above:Performed By: #### MG, CMP, PTT, CK, HS TROP, CBC, PT #### [facility] [address] [place] [address] USACreatine kinase [Enzymatic activity/volume] in Serum or PlasmaOrdered By: Isidro Sanchez on 31-98-7883HK [Catalytic activity/Vol]Creatine kinase [Enzymatic activity/volume] in Serum or Mnpxyw03-083ZonmdljzyPromedica Flower HospitalCreatinine [Mass/volume] in Serum or PlasmaOrdered By: Isidro Sanchez on 99-41-9557Jcqwhvmrao [Mass/Vol]Creatinine [Mass/volume] in Serum or Plasma0.60-1.20Promedica Flower HospitalECG 12 lead ECGon 48-78-5092WEN 12 lead ECGH[facility]ER [place] [address] Electrocardiograph Report Signed Patient: Robbie Allison MR#: [id number] : 1955 Acct:[id number] Age/Sex: 69 / F ADM Date: 06/19/24 Loc: ER Room: Type: [facility] ER Attending Dr: Ordering Provider: Isidro Sanchez DO Date of Service: 06/19/24 ECG/ECG 12 lead ECG: Arrhythmia/Palpitations Copies to: Test Reason : Blood Pressure : */* mmHG Vent. Rate : 99 BPM Atrial Rate : 99 BPM P-R Int : 138 ms QRS Dur : 76 ms QT Int : 338 ms P-R-T Axes : 56 2 52 degrees QTcB Int : 433 ms Sinus rhythm with frequent premature ventricular complexes Possible Left atrial enlargement Low voltage QRS Borderline ECG When compared with ECG of 25-Jan-2021 14:48, premature ventricular complexes are now present Confirmed by ISIDRO SANCHEZ DO ([id number]) on 06/20/2024 1:10:12 AM Referred By: Electronically Signed By: ISIDRO SANCHEZ DO Transcribed By: MUS Signed By Isidro Sanchez DO [facility] Physician GroupEosinophils Auto (Bld) [#/Vol]Ordered By: Isidro Sanchez on 59-21-1701Kftbiuqzfqo (Bld) [#/Vol]Automated eosinophil count0.0-0.45Promedica Flower HospitalEosinophils/100 WBC Auto (Bld) Ordered By: Isidro Sanchez on 33-99-4032Skapelmkyti/100 WBC (Bld)Automated eosinophil %.Promedica Flower HospitalErythrocyte distribution width Auto (RBC) [Ratio]Ordered By: Isidro Sanchez on 22-04-0393Jdzyegtknlh distribution width (RBC) [Ratio]Erythrocyte distribution width [Ratio] by Automated count 11.9-15.3FBarney Children's Medical CenterGlobulin Calc (S) [Mass/Vol]Ordered By: Isidro Sanchez on 21-78-3155Agxsiget (S) [Mass/Vol]Serum globulin measurement by calculation (mass/volume)Prom[facility] Flower HospitalGlucose [Mass/volume] in Serum or PlasmaOrdered By: Isidro Sanchez on 78-99-5130Lwnjomw [Mass/Vol]Glucose [Mass/volume] in Serum or Agkdhd44-059NfawnsnpxPromedica Flower HospitalComment on above:ADA recommended reference rangeRandom Glucose Reference Range is dependent on time and content of last meal. Glucose of more than 200 mg/dL in a nonstressed, ambulatory subject supports the diagnosisof Diabetes Mellitus.Hematocrit Auto (Bld) [Volume fraction]Ordered By: Isidro Sanchez on 32-04-5431Uturseqsxk (Bld) [Volume fraction]Hematocrit [Volume Fraction] of Blood by Automated count34.0-46.4FBarney Children's Medical CenterHemoglobin [Mass/volume] in BloodOrdered By: Isidro Sanchez on 77-94-2182Dhugdhgkfy (Bld) [Mass/Vol]Hemoglobin [Mass/volume] in Blood11.8-15.4FBarney Children's Medical CenterINR in Platelet poor plasma by Coagulation assayOrdered By: Isidro Sanchez on 31-10-4479UDI Coag (PPP) [Relative time]INR in Platelet poor plasma by Coagulation assayPromedica Flower HospitalComment on above:INR Therapeutic Range A) Pre- and Peroperative OAT started two weeks before surgery. NOT HIP SURGERY: 1.5 - 2.5 HIP SURGERY: 2 - 3B) Primary and secondary prevention of venous THROMBOSIS: 2 - 3C) Active venous thrombosis, pulmonary embolismand prevention of recurrent venous thrombosis: 2 - 3D) Prevention of arterial thromboembolismincluding patients with mechanical heart valves: 3 - 4.5 Leukocytes [#/volume] corrected for nucleated erythrocytes in Blood by Automated counOrdered By: Isidro Sanchez on 91-54-5618QTV corrected for nucl RBC Auto (Bld) [#/Vol]Leukocytes [#/volume] corrected for nucleated erythrocytes in Blood by Automated coun3.8-11.6FBarney Children's Medical CenterLymphocytes Auto (Bld) [#/Vol]Ordered By: Isidro Sanchez on 38-35-1980Czyneyehimg (Bld) [#/Vol] Lymphocytes [#/volume] in Blood by Automated count1.00-4.8Promedica Flower HospitalLymphocytes/100 WBC Auto (Bld)Ordered By: Isidro Sanchez on 85-86-3199Qavqufqjwtm/100 WBC (Bld)Lymphocytes/100 leukocytes in Blood by Automated count.[facility]man HospitalH Auto (RBC) [Entitic mass] Ordered By: Isidro Sanchez on 62-63-0814IRE (RBC) [Entitic mass]MCH [Entitic mass] by Automated qtfpeBtlk02.7-34.3FBarnesville HospitalHC Auto (RBC) [Mass/Vol]Ordered By: Isidro Sanchez on 06-00-9953UJVA (RBC) [Mass/Vol]MCHC [Mass/volume] by Automated count32.0-35.0W[facility]-Rittman HospitalV Auto (RBC) [Entitic vol]Ordered By: Isidro Sanchez on 69-68-2886XUV (RBC) [Entitic vol]MCV [Entitic volume] by Automated gfjqwZdnl75-126TvimznwyiPromedica Flower HospitalMagnesiumon 40-61-3701Vgujxbpio [Mass/Vol]1.5 mg/dLLow1.9-2.7The [facility] Physician GroupComment on above:Result Comment: PERFORMED BY: [facility] [address] [place] [address] PATHOLOGIST COACH DRIVER YAMEL MITCHELL M.D.Performed By: #### MG, CMP, PTT, CK, HS TROP, CBC, PT #### [facility] [address] [place] [address] USAMagnesium [Mass/volume] in Serum or PlasmaOrdered By: Isidro Sanchez on 77-71-2422Tqliwyaez [Mass/Vol]Magnesium [Mass/volume] in Serum or PlasmaLow1.9-2.7FBarney Children's Medical CenterMonocyte distribution width [Entitic volume] in Blood by AutomatedOrdered By: Isidro Sanchez on 06-19-2024 Monocyte distribution width Auto (Bld) [Entitic vol]Monocyte distribution width [Entitic volume] in Blood by Automated0.00-20.00Promedica Flower HospitalMonocytes Auto (Bld) [#/Vol]Ordered By: Isidro Sanchez on 06-19-2024 Monocytes (Bld) [#/Vol]Automated blood monocyte count0.0-0.8Promedica Flower HospitalMonocytes/100 WBC Auto (Bld)Ordered By: Isidro Sanchez on 06-19-2024 Monocytes/100 WBC (Bld)Automated monocyte %.[facility] Neutrophils Auto (Bld) [#/Vol]Ordered By: Isidro Sanchez on 85-86-2473Dzmczcjxunf (Bld) [#/Vol]Neutrophils [#/volume] in Blood by Automated count1.8-7.7FBarney Children's Medical CenterNeutrophils/100 WBC Auto (Bld)Ordered By: Isidro Sanchez on 86-67-6728Mqdwwddscrq/100 WBC (Bld)Automated neutrophil %.[facility] Flower HospitalNo Panel InformationOrdered By: Isidro Sanchez on 06-19-2024 Estimated GFR (CKD-EPI)> 60.0 mL/MinPromedica Flower HospitalPharmacy Creatinine Clearance (Chem62.95Promedica Flower HospitalNucleated erythrocytes [Presence] in Blood by Automated countOrdered By: Isidro Sanchez on 61-65-3288Fgnxitflj RBC Auto Ql (Bld)Nucleated erythrocytes [Presence] in Blood by Automated count0-0.5FBarney Children's Medical CenterPartial Thromboplastin Timeon 29-33-2826qJKK Coag (Bld) [Time]27.0 rXvbuet32.1-36.5The [facility] Physician GroupComment on above:Result Comment: A hematocrit value greater than 55% may lead to inaccurate results in coagulation testing. Patients having hematocrit values >55% require a special collection tube for coagulation studies. Please contact the laboratory at [phone] for redraw instructions. PERFORMED BY: [facility] [address] [place] [address] PATHOLOGIST COACH DRIVER YAMEL MITCHELL M.D.Performed By: #### MG, CMP, PTT, CK, HS TROP, CBC, PT ####[facility] [address] [place] [id number] [facility] Platelet mean volume Auto (Bld) [Entitic vol]Ordered By: Isidro Sanchez on 35-07-2377Wvxtzetv mean volume (Bld) [Entitic vol]Platelet mean volume [Entitic volume] in Blood by Automated count6.3-10.7FBarney Children's Medical Center Platelets Auto (Bld) [#/Vol]Ordered By: Isidro Sanchez on 86-53-7620Tggqxqhxc (Bld) [#/Vol]Platelets [#/volume] in Blood by Automated ditrs746-735RffhwduqtPromedica Flower HospitalPotassium [Moles/volume] in Serum or PlasmaOrdered By: Isidro Sanchez on 61-19-8150Cybsncskh [Moles/Vol]Potassium [Moles/volume] in Serum or Plasma3.5-5.1FBarney Children's Medical CenterProtein [Mass/volume] in Serum or PlasmaOrdered By: Isidro Sanchez on 59-23-8851Otndjyn [Mass/Vol]Protein [Mass/volume] in Serum or Plasma6.4-8.9[facility] Prothrombin Time INRon 51-28-3474CDZ Coag (PPP) [Relative time]1.0 {INR}Normal The [facility] Physician GroupComment on above:Result Comment: INR Therapeutic Range A) Pre- and [...] patients with mechanical heart valves: 3 - 4.5Performed By: #### MG, CMP, PTT, CK, HS TROP, CBC, PT #### [facility] [address] [place] [id number] USAPT Coag (PPP) [Time]10.9 sNormal9.0-12.9The [facility] Physician GroupComment on above:Result Comment: A hematocrit value greater than 55% may lead to inaccurate results in coagulation testing. Patients having hematocrit values >55% require a special collection tube for coagulation studies. Please contact the laboratory at [phone] for redraw instructions.Performed By: #### MG, CMP, PTT, CK, HS TROP, CBC, PT #### [facility] [address] [place] [id number] USAProthrombin time (PT)Ordered By: Isidro Sanchez on 09-38-3187VK Coag (PPP) [Time]Prothrombin time (PT)9.0-12.9Prom[facility]ica Flower HospitalComment on above:A hematocrit value greater than 55% may lead to inaccurate results in coagulation testing. Patientshaving hematocrit values >55% require a special collection tube for coagulation studies. Please contact the laboratory at [phone] for redraw instructions.RBC Auto (Bld) [#/Vol]Ordered By: Isidro Sanchez on 30-23-5786QJJ (Bld) [#/Vol]Erythrocytes [#/volume] in Blood by Automated count3.60-5.00[facility] Hospitalerum or plasma albumin/globulin mass ratioOrdered By: Isidro Sanchez on 06-19-2024 Albumin/Globulin [Mass ratio]Serum or plasma albumin/globulin mass ratio [facility] Hospitalerum or plasma anion gap determinationOrdered By: Isdiro Sanchez on 92-25-8512Xmpch gap [Moles/Vol]Serum or plasma anion gap determination6.0-15.0[facility] Hospitalodium [Moles/volume] in Serum or PlasmaOrdered By: Isidro Sanchez on 08-83-5730Hlhiff [Moles/Vol]Sodium [Moles/volume] in Serum or Rvcahy511-107AnngtdidnPromedica Flower Hospital Troponin I High Sensitivityon 47-29-8886Sbtynoxy I High Zbibhmalbor6Biyfre6-22 The [facility] Physician GroupComment on above:Result Comment: The Troponin units of report have been changed to meet the Chest Pain Accreditation requirement, element EC5.M1l2. Troponin units are changed from pg/ml to ng/L. Also, the decimal is removed and results are in whole numbers. PERFORMED BY: [place] [address] PATHOLOGIST COACH DRIVER YAMEL MITCHELL M.D.Performed By: #### MG, CMP, PTT, CK, HS TROP, CBC, PT #### [place] [address] USATroponin I.cardiac [Mass/volume] in Serum or Plasma by Detection limit <= 0.01 ng/Ordered By: Isidro Sanchez on 58-61-0012Shoemxfo I.cardiac DL <= 0.01 ng/mL [Mass/Vol]Troponin I.cardiac [Mass/volume] in Serum or Plasma by Detection limit <= 0.01 ng/0-15[facility] Comment on above:The Troponin units of report have been changed to meet the Chest Pain Accreditation requirement, element EC5.M1l2. Troponin units are changed from pg/ml to ng/L. Also, the decimal is removed and results are in whole numbers.Urea nitrogen [Mass/volume] in Serum or PlasmaOrdered By: Isidro Sanchez on 33-01-9022Fizk nitrogen [Mass/Vol]Urea nitrogen [Mass/volume] in Serum or Plasma7-25Promedica Flower HospitalWBC Auto (Bld) [#/Vol]Ordered By: Isidro Sanchez on 70-97-3522PNF (Bld) [#/Vol]Leukocytes [#/volume] in Blood by Automated count3.8-11.6FBarney Children's Medical CenterX-ray reportOrdered By: Travon Abrams on 21-55-9997Fbnok reportHOLZER HOSPITAL Main [address] [address] XRay Report Signed Patient: Robbie Allison MR#: [id number] : 1955 Acct:[id number] Age/Sex: 69 / F ADM Date: 5 Loc: ER Room: Type: PRE ER Attending Dr: Copies to: NELSON FRANZ~ Ordering Provider: NELSON FRANZ Date of Service: 06/19/24 XR/XR chest 2V*: Arrhythmia/Palpitations PA AND LATERAL CHEST: CLINICAL HISTORY: Mid chest pressure COMPARISON: 01/25/2021 FINDINGS: Cardiac silhouette unremarkable size. Lungs are clear. No effusion or pneumothorax. Multilevel degenerative changes of the thoracic spine. XR/XR chest 2V* IMPRESSION: NO ACUTE CARDIOPULMONARY ABNORMALITY. Impression dictated by: Travon Abrams M.D.06/19/2024 3:29 PM Dictation Location: [place] [address] Transcribed By: [facility] 06/19/24 152 Dictated By: Travon Abrams MD 06/19/24 152 Signed By: 06/19/24 1529 [facility] Work Phone: xr chest 2V*on 77-80-2418QF chest 2V*[facility] Main [address] [address] XRay Report Signed Patient: Robbie Allison MR#: [id number] : 1955 Acct:[id number] Age/Sex: 69 / F ADM Date: 06/19/24 Loc: ER Room: Type: PRE ER Attending Dr: Copies to: MARIA M PROVIDER Ordering Provider: NELSON FRANZ Date of Service: 06/19/24 XR/XR chest 2V*: Arrhythmia/Palpitations PA AND LATERAL CHEST: CLINICAL HISTORY: Mid chest pressure COMPARISON: 01/25/2021 FINDINGS: Cardiac silhouette unremarkable size. Lungs are clear. No effusion or pneumothorax. Multilevel degenerative changes of the thoracic spine. XR/XR chest 2V* IMPRESSION: NO ACUTE CARDIOPULMONARY ABNORMALITY. Impression dictated by: Travon Abrams M.D.06/19/2024 3:29 PM Dictation Location: [place] [address] Transcribed By: [facility] 06/19/24 1529 Dictated By: Travon Abrams MD 06/19/24 1528 Signed By: 06/19/24 1529[facility] Physician [facility]oula HospitalaPTT in Platelet poor plasma by Coagulation assayOrdered By: Isidro Sanchez on 18-49-5837kLRN Coag (PPP) [Time] Activated partial thromboplastin time (aPTT) in platelet poor plasma by coagulation a25.1-36.5FBarney Children's Medical CenterComment on above:A hematocrit value greater than 55% may lead to inaccurate results in coagulation testing. Patientshaving hematocrit values >55% require a special collection tube for coagulation studies. Please contact the laboratory at [phone] for redraw instructions.Campy coli+jejuni BD MaxOrdered By: Rio Ambriz on 05-13-2024. coli+jejuni tuf gene NOLVIA+probe Ql (Stl)Campy coli+jejuni BD Max NegativePromedica Flower HospitalComment on above:Campylobacter test includes C. jejuni and C. coli.Clostridioides difficile toxin B tcdB gene [Presence] in Stool by NOLVIA with probe deteOrdered By: Rio Ambriz on 05-13-2024 C. difficile toxin B tcdB gene NOLVIA+probe Ql (Stl)Clostridioides difficile toxin B tcdB gene [Presence] in Stool by NOLVIA with probe deteNegativePromedica Flower HospitalComment on above:Testing performed by RT-PCRClostridium Difficile on 70-42-6947Unqpxaarynt DifficileNegativeNormalNegativeThe [facility] Physician [facility]oul[facility] HospitalComment on above:Result Comment: Testing performed by RT-PCR PERFORMED BY: [facility] [address] [place] [address] PATHOLOGIST COACH DRIVER YAMEL MITCHELL M.D.Performed By: #### ENT BACT PANEL, CDT ####[place] [address] [place] [address] USASalmonellosis BD Max Ordered By: Rio Ambriz on 30-67-7171Tlrxrlsldf sp spaO gene NOLVIA+probe Ql (Stl) Salmonella sp spaO gene [Presence] in Stool by NOLVIA with probe detectionNegative [facility] Flower HospitalComment on above:Testing performed by RT-PCR Shigella Tox 1+2 BD MaxOrdered By: Rio Ambriz on 05-13-2024E. coli stx1+stx2 genes NOLVIA+probe Ql (Stl)Escherichia coli Stx1 and Stx2 toxin stx1+stx2 genes [Presence] in Stool by NOLVIA withNegKettering Health Troy Shigellosis BD MaxOrdered By: Rio Ambriz on 84-83-6510Ywduzamj species+EIEC invasion plasmid antigen H ipaH gene NOLVIA+probe Ql (Stl)Shigella species+EIEC invasion plasmid antigen H ipaH gene [Presence] in Stool by NAANegKettering Health TroyComment on above:Shigella sp. test includes Shigella species and Enteroinvasive E. coli (EIEC).Stool Bacterial Panelon 05-13-2024 CampylobacterNegativeNormalNegativeHca Florida Mercy Hospital Physician GroupComment on above:Result Comment: Campylobacter test includes C. jejuni and C. coli. Performed By: #### ENT BACT PANEL, CDT ####[address] [place] [address] USASalmonella SpeciesNegativeNormalNegativeHca Florida Mercy Hospital Physician GroupComment on above:Result Comment: Testing performed by RT-PCR PERFORMED BY: [facility] [address] [place] [address] PATHOLOGIST COACH DRIVER YAMEL MITCHELL M.D.Performed By: #### ENT BACT PANEL, CDT ####[address] [place] [address] USAShiga Toxin (E coli O157+oth)NegativeNormalNegativeThe [facility] Physician GroupComment on above: Performed By: #### ENT BACT PANEL, CDT ####[facility] [address] [place] [address] USAShigella SpeciesNegativeNormalNegativeThe [facility] Physician GroupComment on above:Result Comment: Shigella sp. test includes Shigella species and Enteroinvasive E. coli (EIEC).Performed By: #### ENT BACT PANEL, CDT ####[facility] [address] [place] [address] [id number] stress test result from 04/09/2024: MD Jeaneth Dang MA Please reassure the patient that her stress test is normal Thank you Patient made aware.NormalUnCoshocton Regional Medical CenterOffice Visiton 75-54-0864Ulfdyy-up [id number] Robbie Allison 1955 F Date Provider Department Center 03/24/2024 MIRZA BRADLEY CARD [facility] Family History Problem Relation Age of Onset Hypertension Mother Atrial fibrillation Sister Family Status - Relation Status Age at Mother Sister Alive Level of Service:[address] [place] OFFICE/OUTPATIENT ESTABLISHED MOD [facility]DM [facility] 21-44-9320DIqiorsbv: [id number] Received: 01/17/24 Status: GIBRAN Silva Num: [id number] Spec Type: Surgical Subm Dr: Gisselle Powell [...] - LGRN/2, /, Gross/Micro L4/6, H PYLORI Age/ Patient Sex Location Account Attending Physician Robbie Allison 68/F [id number] Gisselle Powell DO SPEC NUM: [id number] RECD: 01/17/24 STATUS: GIBRAN SILVA NUM: [id number] HENRIK: 01/17/[address]: Gisselle Powell DO ENTERED: 01/17/24-[address] [facility] [address]: SPEC TYPE: Surgical DEPT: S ENTERED BY: [id number] RECV BY: [id number] ORDERED: PAS - LGRN/2, HE/12, Gross/Micro L4/6, [...] PAS stain negative for fungal elements. Specimen: [id number] Received: 01/17/24-1255 Status: GIBRAN Gary Num: [id number] Spec Type: Surgical Subm Dr: Gisselle Powell [...] LGRN/2, HE/12, Gross/Micro L4/6, H PYLORI Patient: Robbie Allison [id number] (Continued) Specimen: [id number] Received: 01/17/24 (Continued) Pathological Diagnosis (Continued) Signed (signature on file) Terry Aparicio MD 01/24/241631 Specimen: [id number] Received: 01/17/24 Status: GIBRAN Gary Num: [id number] Spec Type: Surgical Subm Dr: Gisselle Powell, Tissues: A Small Intestine - Biopsy/Polyp (SM BOWEL R/O CELIAC) B GASTRIC FOR HP (GASTRIC BX R/O H PYLORI) C Esophagus Biopsy (DISTAL ESO BX R/O ENRRIQUE + ) D Esophagus Biopsy (PROXIMAL ESO BX R/O ENRRIQUE ) E Colon Biopsy (RANDOMRT COLON BXS) F Colon Biopsy (RANDOM LT COLON) Procedures: PAS - LGRN/2, HE/12, Gross/Micro L4/6, H PYLORI Patient: Robbie Allison [id number] (Continued) Specimen: [id number] Received: 01/17/24-6 (Continued) Pathological Diagnosis (Continued) E. Colon, random [...] received in formalin wit (more content not included)...NormalThe [facility] Physician GroupC reactive protein [Mass/volume] in Serum or Plasma Ordered By: Gisselle Powell on 13-21-6239QTT [Mass/Vol]< 0.5 mg/dL0.0-0.5FBarney Children's Medical CenterC-Reactive Proteinon 59-98-1311ZBS [Mass/Vol]mg/LNormal 0.0-0.5The [facility] Physician GroupComment on above:Result Comment: PERFORMED BY: [facility] [address] [place] [address] PATHOLOGIST COACH DRIVER SHIRA PEREIRA M.D.Performed By: #### CRP ####[facility] [address] [place] [address] [facility]#### CELIAC ####[facility] , Calprotectin [Mass/mass] in StoolOrdered By: Gisselle Powell on 12-31-2023 Calprotectin (Stl) [Mass/Mass]66 ug/g0-120[facility] Comment on above:Concentration Interpretation Follow-Up< 5 - 50 ug/g Normal None>50 -120 ug/g Borderline Re-evaluate in 4-6 weeks >120 ug/g Abnormal Repeat as clinically indicatedPerformed at: [facility] [address] [id number] Director: Adelaide Méndez MD, Phone: [phone] Calprotectin, Fecalon 57-26-1955Yzgxjvmwgxzj, Payoi14Ovbsiw4-710Glm [facility] - PoconoComment on above:Result Comment: Concentration Interpretation Follow-Up < 5 - 50 ug/g Normal None >50 -120 ug/g Borderline Re-evaluate in 4-6 weeks >120 ug/g Abnormal Repeat as clinically indicated Performed at: [facility] [address] [id number] Laundry Folder: Adelaide Méndez MD, Phone: [phone] PERFORMED BY: [facility] [address] [place] [address] PATHOLOGIST COACH DRIVER SHIRA PEREIRA M.D.Performed By: #### ELASTASE STOOL, GIARDIA, STCYRPTOAG, CALPROTECT ####[facility] ,#### CDT ####[facility] [address] [place] [address] USACeliacon 68-03-4975Tiangeskni Gliadin Abs, KgW9Vmucbv0-28Exd [facility] Physician GroupComment on above:Result Comment: Negative 0 - 19 Weak Positive 20 - 30 Moderate to Strong Positive >30Performed By: #### CRP ####[address]#### CELIAC ####[facility] ,Deamidated Gliadin Abs, YbG5Zcwzto2-47Njp [facility] Physician GroupComment on above:Result Comment: Negative 0 - 19 Weak Positive 20 - 30 Moderate to Strong Positive >30Performed By: #### CRP ####[address]#### CELIAC ####[facility] ,Endomysial Antibody IgANegativeNormalNegativeThe [facility] Physician GroupComment on above:Performed By: #### CRP ####[address]#### CELIAC ####[facility] ,Immunoglobulin A, Qn, Reyqg848 mg/kTLuoqop54-951Kcm [facility] Physician GroupComment on above:Result Comment: Performed at: [facility] [address] [id number] Laundry Folder: Duane Gillette PhD, Phone: [phone] PERFORMED BY: [facility] [address] [place] [address] PATHOLOGIST COACH DRIVER SHIRA PEREIRA M.D.Performed By: #### CRP ####[place] [address] [place]#### CELIAC ####[facility] ,T- Transglutaminase (tTG) IgA<4Vroinx7-8Jlw [facility] Physician GroupComment on above:Result Comment: Negative 0 - 3 Weak Positive 4 - 10 Positive >10 Tissue Transglutaminase (tTG) has been identified as the endomysial antigen. Studies have demonstr- ated that endomysial IgA antibodies have over 99% specificity for gluten sensitive enteropathy.Performed By: #### CRP ####[place] [address] [place]#### CELIAC ####[facility] ,T-Transglutaminase (tTG) IuR85Vdbr2-8Qug [facility] Physician GroupComment on above:Result Comment: Negative 0 - 5 Weak Positive 6 - 9 Positive >9Performed By: #### CRP ####[address]#### CELIAC ####[facility] ,Clostridioides difficile toxin B tcdB gene [Presence] in Stool by NOLVIA with probe deteOrdered By: Gisselle Powell on 12-31-2023. difficile toxin B tcdB gene NOLVIA+probe Ql (Stl) PositiveAbnormalNegKettering Health TroyComment on above: Results calledat 1618 on 12/31/23 --- 12/31/23 1618 ---CDT previously reported as: Positive *A Testing performed by RT-PCRClostridium Difficileon 12-31-2023 Clostridium DifficilePositiveNormalNegativeThe [facility] Physician GroupComment on above:Result Comment: Results called at 1618 on 12/31/23 --- 12/31/23 1618 --- CDT previously reported as: Positive *A Testing performed by RT-PCR PERFORMED BY: [facility] [address] [facility] [place] [address] PATHOLOGIST COACH DRIVER SHIRA PEREIRA M.D.Performed By: #### ELASTASE STOOL, GIARDIA, STCYRPTOAG, CALPROTECT ####[facility] ,#### CDT ####[place] [address] USACryptosporidium Antigen Stoolon 87-00-9357Ywlpcugrxzinsxd Antigen StoolNegativeNormalNegativeRegency MeridianComment on above:Performed By: #### ELASTASE STOOL, GIARDIA, STCYRPTOAG, CALPROTECT ####[facility] ,#### CDT ####[place] [address] USACryptosporidium sp Ag [Presence] in Stool by ImmunoassayOrdered By: Gisselle Powell on 12-31-2023 Cryptosporidium sp Ag IA Ql (Stl)NegativeNegativePromedica Flower HospitalElastase.pancreatic [Mass/mass] in StoolOrdered By: Gisselle Powell on 61-00-1275Fqctayrr.pancreatic (Stl) [Mass/Mass]539>200[facility]lower HospitalComment on above:Result Units: ug Elast./g Severe Pancreatic Insufficiency: <100 Moderate Pancreatic Insufficiency: 100 - 200 Normal: >200Performed at: [facility] LabBre[address] [id number] Director: Adelaide Méndez MD, Phone: [phone] Lamblia Ag EIA Stoolon 75-91-4790Trnwodw Lamblia Ag EIA StoolNegativeNormalNegativeThe [facility] Physician GroupComment on above:Result Comment: Performed at: [facility] [address] [id number] Laundry Folder: Duane Gillette PhD, Phone: [phone] PERFORMED BY: [facility] [address] [place] [address] PATHOLOGIST COACH DRIVER SHIRA PEREIRA M.D.Performed By: #### ELASTASE STOOL, GIARDIA, STCYRPTOAG, CALPROTECT ####[facility] ,#### CDT ####[facility] [address] [place] [address] USAGiardia lamblia Ag [Presence] in Stool by ImmunoassayOrdered By: Gisselle Powell on 12-31-2023G. lamblia Ag IA Ql (Stl) NegativeNegativePromedica Flower HospitalComment on above:Performed at: [address] [id number] Director: Duane Gillette PhD, Phone: [phone] [Mass/volume] in Serum or PlasmaOrdered By: Gisselle Powell on 76-57-2107UiJ [Mass/Vol]209 mg/xC37-544ThgynatuePromedica Flower HospitalComment on above:Performed at: - [facility] [address] [place], [place] [id number] Director: Duane Gillette PhD, Phone: [phone] No Panel InformationOrdered By: Gisselle Powell on 15-70-6159Ufjirhlckb IgA AntibodyNegativeNegativePromedica Flower HospitalPancreatic Elastase, Stoolon 81-28-7813Bwmgzqmeiz Elastase, Dlzmr406Tzjebi>200The [facility] Physician GroupComment on above:Result Comment: Result Units: ug Elast./g Severe Pancreatic Insufficiency: <100 Moderate Pancreatic Insufficiency: 100 - 200 Normal: >200 Performed at: - [facility] [address] [id number] Laundry Folder: Adelaide Méndez MD, Phone: [phone] By: #### ELASTASE STOOL, GIARDIA, STCYRPTOAG, CALPROTECT ####[facility] ,#### CDT ####[facility] [place] [address] USASerum gliadin peptide IgA antibody assay (units/volume)Ordered By: Gisselle Powell on 47-88-5498Tnfofim peptide IgA Qn (S)4 units0-[facility] Comment on above:Negative 0 - 19 Weak Positive 20 - 30 Moderate to Strong Positive >30Serum gliadin peptide IgG antibody assay (units/volume)Ordered By: Gisselle Powell on 11-93-1810Unrncab peptide IgG Qn (S)2 units0-[facility] Flower HospitalComment on above:Negative 0 - 19 Weak Positive 20 - 30 Moderate to Strong Positive >30Serum tissue transglutaminase (tTG) IgA antibody assay (units/volume)Ordered By: Gisselle Powell on 10-32-8491hWN IgA Qn (S)<2 U/mL 0-3FBarney Children's Medical CenterComment on above:Negative 0 - 3 Weak Positive 4 - 10 Positive >10 Tissue Transglutaminase (tTG) has been identified as the endomysial antigen. Studies have demonstr- ated that endomysial IgA antibodies have over 99% specificity for gluten sensitive enteropathy.Serum tissue transglutaminase (tTG) IgG antibody assay (units/volume)Ordered By: Gisselle Powell on 54-68-5931gJI IgG Qn (S)14 U/mLHigh0-5FBarney Children's Medical CenterComment on above:Negative 0 - 5 Weak Positive 6 - 9 Positive >9Alanine aminotransferase [Enzymatic activity/volume] in Serum or PlasmaOrdered By: Tiffany Fuentes on 66-16-2872ZBW [Catalytic activity/Vol]18 U/L7-52[facility] HospitalAlbumin [Mass/volume] in Serum or Plasma by Bromocresol green (BCG) dye binding methoOrdered By: Tiffany Fuentes on 77-97-7344Xndveyx BCG dye [Mass/Vol]4.0 g/dL3.5-5.7FBarney Children's Medical CenterAlkaline phosphatase [Enzymatic activity/volume] in Serum or PlasmaOrdered By: Tiffany Fuentes on 83-33-7187VJR [Catalytic activity/Vol]66 U/S32-540SxrviwmnnPromedica Flower HospitalAspartate aminotransferase [Enzymatic activity/volume] in Serum or Plasma Ordered By: Tiffany Fuentes on 33-25-3020PTB [Catalytic activity/Vol]17 U/L13-39 [facility] HospitalBasophils Auto (Bld) [#/Vol]Ordered By: Tiffany Fuentes on 53-45-5193Wgismiyie (Bld) [#/Vol]0.0 10*3/uL0.0-0.2FBarney Children's Medical CenterBasophils/100 WBC Auto (Bld)Ordered By: Tiffany Fuentes on 91-96-4569Wmledouzw/100 WBC (Bld)0.7 %.[facility] Bilirubin.total [Mass/volume] in Serum or PlasmaOrdered By: Tiffany Fuentes on 28-71-4544Cnwkngjpm [Mass/Vol]0.5 mg/dL0.3-1.0Prom[facility] Flower HospitalC reactive protein [Mass/volume] in Serum or PlasmaOrdered By: Tiffany Fuentes on 83-90-8975GCL [Mass/Vol]< 0.5 mg/dL0.0-0.5FBarney Children's Medical Center Calcium [Mass/volume] in Serum or PlasmaOrdered By: Tiffany Fuentes on 10-23-2023 Calcium [Mass/Vol]8.8 mg/dL8.6-10.3FBarney Children's Medical CenterCarbon dioxide, total [Moles/volume] in Serum or PlasmaOrdered By: Tiffany Fuentes on 30-11-8992YN9 [Moles/Vol]28.8 mmol/L21.0-31.0[facility] Chloride [Moles/volume] in Serum or PlasmaOrdered By: Tiffany Fuentes on 90-88-6603Jevggjbf [Moles/Vol]102 mmol/L70-803NutfhpnmvPromedica Flower Hospital Creatinine [Mass/volume] in Serum or PlasmaOrdered By: Tiffany Fuentes on 63-85-0868Qpzmzzgipb [Mass/Vol]0.83 mg/dL0.60-1.20Prom[facility] Flower HospitalEosinophils Auto (Bld) [#/Vol]Ordered By: Tiffany Fuentes on 10-23-2023 Eosinophils (Bld) [#/Vol]0.1 10*3/uL0.0-0.45[facility] Eosinophils/100 WBC Auto (Bld)Ordered By: Tiffany Fuentes on 10-23-2023 Eosinophils/100 WBC (Bld)2.2 %.[facility] Flower HospitalErythrocyte distribution width Auto (RBC) [Ratio]Ordered By: Tiffany Fuentes on 10-23-2023 Erythrocyte distribution width (RBC) [Ratio]12.4 %11.9-15.3FBarney Children's Medical CenterErythrocyte sedimentation rate by Photometric methodOrdered By: Tiffany Fuentes on 00-48-0787XEC Photometric method (Bld) [Velocity]5 mm/hr0-29 [facility] Flower HospitalGlobulin Calc (S) [Mass/Vol]Ordered By: Tiffany Fuentes on 33-08-3037Nwxqejsf (S) [Mass/Vol]2.4 g/dLPromedica Flower HospitalGlucose [Mass/volume] in Serum or PlasmaOrdered By: Tiffany Fuentes on 38-76-5811Prtvawb [Mass/Vol]99 mg/vK62-807VbdunhksaPromedica Flower Hospital Comment on above:ADA recommended reference rangeRandom Glucose Reference Range is dependent on time and content of last meal. Glucose of more than 200 mg/dL in a nonstressed, ambulatory subject supports the diagnosisof Diabetes Mellitus. Hematocrit Auto (Bld) [Volume fraction]Ordered By: Tiffany Fuentes on 10-23-2023 Hematocrit (Bld) [Volume fraction]35.0 %34.0-46.4FBarney Children's Medical CenterHemoglobin [Mass/volume] in BloodOrdered By: Tiffany Fuentes on 10-23-2023 Hemoglobin (Bld) [Mass/Vol]11.8 g/dL11.8-15.4FBarney Children's Medical Center Leukocytes [#/volume] corrected for nucleated erythrocytes in Blood by Automated counOrdered By: Tiffany Fuentes on 86-79-6018BIQ corrected for nucl RBC Auto (Bld) [#/Vol]4.0 10*3/uL3.8-11.6FBarney Children's Medical CenterLymphocytes Auto (Bld) [#/Vol]Ordered By: Tiffany Fuentes on 75-74-2118Cbzxwregcaf (Bld) [#/Vol]1.4 10*3/uL1.00-4.8Prom[facility] Flower HospitalLymphocytes/100 WBC Auto (Bld)Ordered By: Tiffany Fuentes on 76-53-0829Nwserbxugav/100 WBC (Bld)35.2 %.[facility] HospitalH Auto (RBC) [Entitic mass]Ordered By: Tiffany Fuentes on 61-05-7029DKR (RBC) [Entitic mass]34.8 fzQjil20.7-34.3FBarney Children's Medical CenterMCHC Auto (RBC) [Mass/Vol]Ordered By: Tiffany Fuentes on 50-93-2072WHAT (RBC) [Mass/Vol]33.7 g/dL32.0-35.0Prom[facility] HospitalMCV Auto (RBC) [Entitic vol]Ordered By: Tiffany Fuentes on 90-19-2436SCY (RBC) [Entitic vol]103.2 yUTjaq37-136YqlsxlebqPromedica Flower HospitalMonocytes Auto (Bld) [#/Vol]Ordered By: Tiffany Fuentes on 21-37-6697Cclxcpvbl (Bld) [#/Vol]0.4 10*3/uL0.0-0.8Prom[facility] HospitalMonocytes/100 WBC Auto (Bld)Ordered By: Tiffany Fuentes on 14-29-4515Egdokiwtk/100 WBC (Bld)10.8 %. [facility] Flower HospitalNeutrophils Auto (Bld) [#/Vol]Ordered By: Tiffany Fuentes on 92-53-8108Wtpoejgmddc (Bld) [#/Vol]2.0 10*3/uL1.8-7.7FBarney Children's Medical CenterNeutrophils/100 WBC Auto (Bld)Ordered By: Tiffany Fuentes on 88-07-0556Yjtlcwxcsia/100 WBC (Bld)51.1 %.[facility] HospitalNo Panel InformationOrdered By: Tiffany Fuentes on 77-64-5425Ebjxylrku GFR (CKD-EPI)> 60.0 mL/MinPromedica Flower HospitalPharmacy Creatinine Clearance (ChemN/AFBarney Children's Medical CenterNucleated erythrocytes [Presence] in Blood by Automated countOrdered By: Tiffany Fuentes on 10-23-2023 Nucleated RBC Auto Ql (Bld)0.1 /100{WBC}0-0.5FBarney Children's Medical Center Platelet mean volume Auto (Bld) [Entitic vol]Ordered By: Tiffany Fuentes on 95-76-5574Stbnzizd mean volume (Bld) [Entitic vol]7.7 fL6.3-10.7FBarney Children's Medical CenterPlatelets Auto (Bld) [#/Vol]Ordered By: Tiffany Fuentes on 92-21-3133Zosvedvmt (Bld) [#/Vol]168 10*3/rM395-685VnvvcsyqiPromedica Flower HospitalPotassium [Moles/volume] in Serum or PlasmaOrdered By: Tiffany Fuentes on 82-87-0339Gpsucokhp [Moles/Vol]3.9 mmol/L3.5-5.1FBarney Children's Medical CenterProtein [Mass/volume] in Serum or PlasmaOrdered By: Tiffany Fuentes on 77-21-7614Eacjdkq [Mass/Vol]6.4 g/dL6.4-8.9Promedica Flower HospitalRBC Auto (Bld) [#/Vol]Ordered By: Tiffany Fuentes on 01-52-4054SWU (Bld) [#/Vol]3.39 10*6/uLLow3.60-5.00[facility] Hospitalerum nuclear antibody titer Ordered By: Tiffany Fuentes on 12-84-6116Mwqjnsy Ab (S) [Titer]Negative.[facility] Flower HospitalComment on above:Negative <1:80 Borderline 1:80 Positive >1:80ICAP nomenclature: AC-0For more information about Hep-2 cell patterns useANApatterns.org, the official website for theInternational Consensus on Anti nuclear Antibody (BRODERICK)Patterns (ICAP).Performed at: [place] [place] [id number] Director: Duane Gillette PhD, Phone: [phone] or plasma albumin/globulin mass ratioOrdered By: Tiffany Fuentes on 63-26-4312Fnscimr/Globulin [Mass ratio]1.7 {ratio}[facility] Hospitalerum or plasma anion gap determinationOrdered By: Tiffany Fuentes on 52-31-0027Guaas gap [Moles/Vol]10.1 mmol/L6.0-15.0[facility] Hospitalodium [Moles/volume] in Serum or PlasmaOrdered By: Tiffany Fuentes on 19-53-6859Dsqsvc [Moles/Vol]137 mmol/L639-501BzeyaikwtPromedica Flower Hospital Urea nitrogen [Mass/volume] in Serum or PlasmaOrdered By: Tiffany Fuentes on 58-54-6925Gbur nitrogen [Mass/Vol]14 mg/dL7-25[facility] WBC Auto (Bld) [#/Vol]Ordered By: Tiffany Fuentes on 35-15-4090UES (Bld) [#/Vol] 4.0 10*3/uL3.8-11.6[facility] CenterMRI CSPINE WO CONon 52-66-5065IBZ [facility] WO CONEXAMINATION: [facility] H[facility]ORY: Neck pain ; acute [...] Electronically authenticated by: ELVA MELISSA Date: 2022-07-11 11:43[facility] HospitalXR CSPINE MIN 4 VIEWSon 70-08-6292NA CSPINE MIN 4 VIEWS EXAMINATION: XR CSPINE [...] Electronically authenticated by: ELVA MELISSA Date: 2022-06-28 09:[address] [place] [address] AUTO DIFFon 29-42-4986OOZE #0.1 103/ulNormal0.0-0.1German HospitalComment on above:Performed By: #### CBC #### [facility] [address] [place] [address] Dr. Natasha CelesteBasophils/100 WBC (Bld)1.4 %Normal0.2-2.0[facility] Comment on above:Performed By: #### CBC #### [facility] [address] [place] [address] Dr. Natasha Sabillon #0.1 103/ulNormal0.0-0.7The [facility] Medical CenterComment on above: Performed By: #### CBC #### [facility] [address] [place] [address] Dr. Natasha Avilaosinophils/100 WBC (Bld)2.4 %Normal0.9-7.0[facility] Comment on above:Performed By: #### CBC #### [facility] [address] [place] [address] Dr. Natasha Avilarythrocyte distribution width (RBC) [Ratio]12.3 %Jeipgm19.0-15.0 German HospitalComment on above:Performed By: #### CBC #### [facility] [address] [place] [address] Dr. Natasha CelesteHematocrit (Bld) [Volume fraction]41.6 %Xtqjhx17.0-48.0German HospitalComment on above:Performed By: #### CBC #### [facility] [address] [place] [address] Dr. Natasha CelesteHemoglobin (Bld) [Mass/Vol]13.6 g/hNDinqhk06.0-16.0The [facility] CenterComment on above:Performed By: #### CBC #### [facility] [address] [place] [address] Dr. Natasha Hicks #0.02 10e3/ulNormal0.00-0.03The [facility] Medical CenterComment on above:Performed By: #### CBC #### [facility] [address] [place] [address] Dr. Natasha Hicks %0.5 %Normal0.0-0.5The [facility] Medical CenterComment on above: Performed By: #### CBC #### [facility] [address] [place] [address] Dr. Natasha Arevalo #1.4 103/ulNormal1.2-3.8The [facility] Medical CenterComment on above:Performed By: #### CBC #### [facility] [address] [place] [address] Dr. Natasha Perezmphocytes/100 WBC (Bld)33.3 %Pexbuk79.5-60.0The [facility] Medical CenterComment on above:Performed By: #### CBC #### [facility] [address] [place] [address] Dr. Natasha SanchezUAL DIFF REQNONormalThe [facility] Medical CenterComment on above: Performed By: #### CBC #### [facility] [address] [place] [address] Dr. Natasha Ashley (RBC) [Entitic mass]33.1 ilRuswcq12.7-34.0The [facility] CenterComment on above:Performed By: #### CBC #### [facility] [address] [place] [address] Dr. Natasha Ashley (RBC) [Mass/Vol]32.7 g/yYWmnrxh65.9-35.2The [facility] Medical CenterComment on above:Performed By: #### CBC #### [facility] [address] [place] [address] Dr. Natasha Cotton (RBC) [Entitic vol]101.2 fLCritically high81.0-99.0The [facility] Medical CenterComment on above:Performed By: #### CBC #### [facility] [address] [place] [address] Dr. Natasha Mercer #0.4 103/ulNormal0.3-0.8The [facility] Medical CenterComment on above:Performed By: #### CBC #### [facility] [address] [address] [address] Natasha Londonocytes/100 WBC (Bld)10.4 %Normal1.7-12.0The [facility] Comment on above:Performed By: #### CBC #### [facility] [address] [place] [address] Dr. Natasha Bolton #2.2 103/ulNormal1.4-6.5The [facility] Medical CenterComment on above:Performed By: #### CBC #### [facility] [address] [place] [address] Dr. Natasha Rigginsutrophils/100 WBC (Bld)52.0 %Bcdtve91.0-75.0The [facility] CenterComment on above:Performed By: #### CBC #### [facility] [address] [place] [address] Dr. Natasha Shermanlet mean volume (Bld) [Entitic vol]9.5 fLNormal9.5-13.5The [facility] Medical CenterComment on above:Performed By: #### CBC #### [facility] [address] [place] [address] Dr. Natasah CelestePLT186 103/zwCibmza997-550Kba [facility] CenterComment on above: Performed By: #### CBC #### [facility] [address] [place] [address] Dr. Natasha CelesteRBC4.11 106/ulCritically low4.20-5.40The [facility]ruder Hospitalment on above:Performed By: #### CBC #### [facility] [address] [place], [place] [id number] Dr. Natasha CelesteWBC4.2 103/ulNormal4.0-11.0The [facility] Medical CenterComment on above: Performed By: #### CBC #### [facility] [address] [place] [address] Dr. Natasha Spivey THYROXINE INDEX T7on 04-91-7788DTF5.64Egoxrn8.30-4.50The [facility] CenterComment on above:Performed By: #### VITAD, IRON #### [facility] [address] [place] [address] Dr. Natasha CelesteT3U35.0 %Xadokm76.0-39.0The [facility] CenterComment on above: Performed By: #### VITAD, IRON #### [facility] [address] [place] [address] Dr. Natasha CelesteT4 [Mass/Vol]9.90 ug/dLNormal4.80-13.90The [facility] Comment on above:Performed By: #### VITAD, IRON #### [facility] [address] [place] [address] Dr. Natasha CelesteGLYCOHEMOGLOBIN A1Con [id number] RECOMMENDATIONSEE BELOWNormal The [facility] CenterCom[facility] on above:Result Comment: ADA RECOMMENDED LIMIT 4.0 - 6.0 ADA THERAPEUTIC TARGET < 7.0 ACTION SUGGESTED > 7.0Performed By: #### A1C #### [facility] [address] [place] [address] Dr. Natasha CelesteGlucose [Mass/Vol]97 mg/dLNormalThe [facility] on above:Performed By: #### A1C #### [facility] [address] [place] [address] Dr. Natasha CelesteHbA1c (Bld) [Mass fraction]5.0 %Normal4.5-6.2The [facility] CenterComment on above:Performed By: #### A1C #### [facility] [address] [place] [address] Dr. Natasha East [id number] [Mass/Vol]105.0 ug/pPBtsvqt07.0-170.0German HospitalComment on above:Performed By: #### VITAD, IRON #### [facility] [address] [place] [address] Dr. Natasha CelesteLIPID PROFILEon [id number]-HDL RATIO NORMSEE [facility] AndersonComment on above:Result Comment: 3.3 - 4.4 LOW RISK 4.4 - 7.1 AVERAGE RISK 7.1 - 11.0 MODERATE RISK >11.0 HIGH RISKPerformed By: #### VITAD, IRON #### [facility] [address] [place] [address] Dr. Natasha CelesteCholesterol [Mass/Vol]176 mg/dLNormal<=200The [facility] Comment on above:Performed By: #### VITAD, IRON #### [facility] [address] [place] [address] Dr. Natasha CelesteCholesterol in HDL [Mass/Vol]70 mg/dLCritically pmvx65-16GlzGerman HospitalComment on above:Performed By: #### VITAD, IRON #### [facility] [address] [place] [address] Dr. Natasha CelesteCholesterol in LDL [Mass/Vol]83.2 mg/dLNoUniversity Hospitals TriPoint Medical CenterComment on above:Performed By: #### VITAD, IRON #### [facility] [address] [place] [address] Dr. Natasha Owensesterhermelinda.total/Cholesterol in HDL [Mass ratio]2.5 {ratio} NormalGerman HospitalComment on above:Performed By: #### VITAD, IRON #### [facility] [address] [place] [address] Dr. Natasha Childress NORMAL> or = 60 mg/dl - LOW CARDIOVASCULAR RISK <40 mg/dl - HIGH CARDIOVASCULAR RISKProMedica Toledo HospitalComment on above:Performed By: #### VITAD, IRON #### [facility] [address] [place] [address] Dr. Natasha CelesteLDL CALC NORMALSEE BELOWNoUniversity Hospitals TriPoint Medical CenterComment on above:Result Comment: <100 mg/dl OPTIMAL 100 - 129 mg/dl NEAR OR ABOVE OPTIMAL 130 - 159 mg/dl BORDERLINE HIGH 160 - 189 mg/dl HIGH >190 mg/dl VERY HIGH Performed By: #### VITAD, IRON #### [facility] [address] [place] [address] Dr. Natasha CelesteTriglyceride [Mass/Vol]114 mg/dLNormal<=150The [facility] Comment on above:Performed By: #### VITAD, IRON #### [facility] [address] [place] [address] Dr. Natasha CelesteVLDL CALC22.8 mg/dLNoUniversity Hospitals TriPoint Medical CenterComment on above: Performed By: #### VITAD, IRON #### [facility] [address] [place] [address] Dr. Natasha CelestePROF 14(COMP METB)on 89-74-1711Cxqnmiz [Mass/Vol]3.8 g/dLNormal 3.4-5.0The [facility] CenterComment on above:Performed By: #### VITAD, IRON #### [facility] [address] [place] [address] Dr. Natasha CelesteAlbumin/Globulin [Mass ratio]1.0 {ratio}NormalThe [facility] Medical CenterComment on above:Performed By: #### VITAD, IRON #### [facility] [address] [place] [address] Dr. Natasha Hernandez [Catalytic activity/Vol]74 U/OGyfepo16-517Jsl [facility] CenterComment on above:Performed By: #### VITAD, IRON #### [facility] [address] [place] [address] Dr. Natasha Collier [Catalytic activity/Vol]37 U/JDeuohc62-94Hzf [facility] CenterComment on above:Performed By: #### VITAD, IRON #### [facility] [address] [place] [address] Dr. Natasha Desouza gap [Moles/Vol]14.7 mmol/LNormalThe [facility] Comment on above:Performed By: #### VITAD, IRON #### [facility] [address] [address] [address] Natasha CelesteAST [Catalytic activity/Vol]34 U/IGfmvts94-73Urz [facility] CenterComment on above:Performed By: #### VITAD, IRON #### [facility] [address] [address] [address] Natasha CelesteBilirubin [Mass/Vol]0.5 mg/dLNormal0.2-1.0The [facility] Comment on above:Performed By: #### VITAD, IRON #### [facility] [address] [place] [address] Dr. Natasha CelesteCalcium [Mass/Vol]8.9 mg/dLNormal8.5-10.1[facility] Comment on above:Performed By: #### VITAD, IRON #### [facility] [address] [place] [address] Dr. Natasha CelesteChloride [Moles/Vol]103 mmol/YHsbhsw24-664JphGerman Hospital Comment on above:Performed By: #### VITAD, IRON #### [facility] [address] [place] [address] Dr. Natasha CelesteCO2 [Moles/Vol]27.4 mmol/WNjbxfq15.0-32.0[facility] Comment on above:Performed By: #### VITAD, IRON #### [facility] [address] [place] [address] Dr. Natasha CelesteCreatinine [Mass/Vol]0.69 mg/dLNormal0.55-1.02The [facility] CenterComment on above:Performed By: #### VITAD, IRON #### [facility] [address] [place] [address] Dr. Natasha AvilaGFR-AF LEBANESE>60Normal>=60The [facility] CenterComment on above:Performed By: #### VITAD, IRON #### [facility] [address] [place] [address] Dr. Natasha AvilaGFR-NON AF LEBANESE>60Normal>=60The [facility] Medical CenterComment on above:Performed By: #### VITAD, IRON #### [facility] [address] [place] [address] Dr. Natasha CelesteGlobulin (S) [Mass/Vol]3.9 g/dLNormSt. Elizabeth HospitalComment on above:Performed By: #### VITAD, IRON #### [facility] [address] [place] [address] Dr. Natasha CelesteGlucose [Mass/Vol]103 mg/wCAigobs80-111Ztu [facility] Comment on above:Performed By: #### VITAD, IRON #### [facility] [address] [place] [address] Dr. Natasha CelestePotassium [Moles/Vol]4.1 mmol/LNormal3.5-5.1[facility] Comment on above:Performed By: #### VITAD, IRON #### [facility] [address] [place] [address] Dr. Natasha CelesteProtein [Mass/Vol]7.7 g/dLNormal6.4-8.2[facility] Comment on above:Performed By: #### VITAD, IRON #### [facility] [address] [place] [address] Dr. Natasha CelesteSodium [Moles/Vol]141 mmol/JDhcbwp142-405WdfGerman Hospital Comment on above:Performed By: #### VITAD, IRON #### [facility] [address] [place] [address] Dr. Natasha CelesteUrea nitrogen [Mass/Vol]19.0 mg/dLCritically high7.0-18.0The [facility] CenterComment on above:Performed By: #### VITAD, IRON #### [facility] [address] [place] [address] Dr. Natasha CelesteUrea nitrogen/Creatinine [Mass ratio]27.5 mg/mgNoUniversity Hospitals TriPoint Medical CenterComment on above:Performed By: #### VITAD, IRON #### [facility] [address] [place] [address] Dr. Natasha Colindres 74-33-7368NVO7.405 uIU/mLNormal0.358-3.740The [facility] Medical CenterComment on above:Performed By: #### T7, TSH, CMP, LIPID #### [facility] [address] [address] [address] Natasha CelesteVITAMIN D 25 OHon 54-57-3153UWU D 25-OH37.2 ng/mLNormalThe [facility] Medical CenterComment on above:Performed By: #### VITAD, IRON #### [facility] [address] [address] [address] Natasha Coronel RANGESSEE [facility] - AndersonComment on above: Result Comment: <20 ng/mL Vit D deficient 20 - <30 ng/mL Vit D insufficient 30 - 100 ng/mL Vit D sufficient >100 ng/mL Potential ToxicityPerformed By: #### VITAD, IRON #### [facility] [address] [address] [address] Natasha Redmond Visit (Allergy/Immunology)on 78-25-0143Nyxlij-up visit Diagnoses/Problems Assessed Moderate persistent asthma (493.90) [...] for SOB and allergies History of Present Modqijo9 yo with history of allergy and asthma. Symptoms are improved on Jwvzcr059 BID with rare albuterol use. She has [...] TABLET BY MOUTH DAILY Zyrtec-D 5-120 MG [id number] 1 TABLET TWICE DAILY NEEDED. Vitals Vital Signs Recorded: 10Jan2022 01:39PM Jpavuohrpud30.1 F, Temporal Heart Rate88 Kqgvmkzuiih06 Getwwsrx247 Ibuaadcnc83 Jryigg610 lb BMI Wwnutyqkna94.3 kg/m2 BSA Calculated1.92 Tobacco Usea) Yes O2 Zhtdfphsmh90, RA Physical Exam Constitutional General appearance: Well [...] midline, no masses. Pulmo (more content not included)...NormalUH TouchworksTobacco Screening.on 08-35-3566Taggndm use status CPHSa) QcsGR-VHUM-[place] [place] [address] Work Phone: RESPIRATORY ALLERGY PROFILE,IGE,ICon 12-13-2021 ALTERNARIA,IGE,IC4.04 KU/LAbnormal<0.35UH [facility] Health CenterComment on above:Result Comment: SEE IMMUNOCAP INTERP.IGEPerformed By: #### ICPA2 #### [facility] [address] [place], [place] [address]HLW,WHITE,IGE,IC0.15 KU/LNormal<0.35[facility] CenterComment on above:Result Comment: SEE IMMUNOCAP INTERP.IGEPerformed By: #### ICPA2 #### [facility] [address] [place], [place] [address]GZSYHAUHPG,IGE,IC0.30 KU/LNormal<0.35[facility] CenterComment on above:Result Comment: SEE IMMUNOCAP INTERP.IGEPerformed By: #### ICPA2 #### [facility] [address] [place] [id number],IGE,IC<0.10Normal<0.35[facility] Comment on above:Result Comment: SEE IMMUNOCAP INTERP.IGEPerformed By: #### ICPA2 #### [facility] [address] [place], [place] [address]OAC ELDER,IGE,IC0.56 KU/LAbnormal<0.35[facility] CenterComment on above:Result Comment: SEE IMMUNOCAP INTERP.IGEPerformed By: #### ICPA2 #### [facility] [address] [place], [place] [address]DHM EPI./DANDER,IGE,IC1.97 KU/LAbnormal<0.35[facility] CenterComment on above:Result Comment: SEE IMMUNOCAP INTERP.IGEPerformed By: #### ICPA2 #### [facility] [address] [place], [place] [address]XBEPD MTN/JUNIPER,IGE,IC0.16 KU/LNormal<0.35[facility] CenterComment on above:Result Comment: SEE IMMUNOCAP INTERP.IGEPerformed By: #### ICPA2 #### [facility] [address] [place], [place] [address]YKRUCWFSTHTJ HERBARUM IGE,IC0.38 KU/LAbnormal<0.35[facility] CenterComment on above:Result Comment: SEE IMMUNOCAP INTERP.IGEPerformed By: #### ICPA2 #### [facility] [address] [place] [id number],IGE,IC<0.10Normal<0.35[facility] Comment on above:Result Comment: SEE IMMUNOCAP INTERP.IGEPerformed By: #### ICPA2 #### [facility] [address] [place] [id number],IGE,IC<0.10Normal<0.35[facility] Comment on above:Result Comment: SEE IMMUNOCAP INTERP.IGEPerformed By: #### ICPA2 #### [facility] [address] [place], [place] [address]T.FARINA,IGE,IC<0.10Normal<0.35[facility] Comment on above:Result Comment: SEE IMMUNOCAP INTERP.IGEPerformed By: #### ICPA2 #### [facility] [address] [place], [place] [address]D.PTERONYSSINUS,IGE,IC<0.10Normal<0.35[facility] CenterComment on above:Result Comment: SEE IMMUNOCAP INTERP.IGEPerformed By: #### ICPA2 #### [facility] [address] [place], [place] [address]OKK DANDER IGE,IC3.91 KU/LAbnormal<0.35[facility] CenterComment on above:Result Comment: SEE IMMUNOCAP INTERP.IGEPerformed By: #### ICPA2 #### [facility] [address] [place], [place] [address]NXO,IGE,IC0.11 KU/LNormal<0.35[facility] Comment on above:Result Comment: SEE IMMUNOCAP INTERP.IGEPerformed By: #### ICPA2 #### [facility] [address] [place], [place] [address]SBHGTFP PLANTAIN,IGE,IC<0.10Normal<0.35[facility] CenterComment on above:Result Comment: SEE IMMUNOCAP INTERP.IGEPerformed By: #### ICPA2 #### [facility] [address] [place] [id number],BERMUDA,IGE,IC<0.10Normal<0.35[facility] CenterComment on above:Result Comment: SEE IMMUNOCAP INTERP.IGEPerformed By: #### ICPA2 #### [facility] [address],MEERA,IGE,IC<0.10Normal<0.35[facility] CenterComment on above:Result Comment: SEE IMMUNOCAP INTERP.IGEPerformed By: #### ICPA2 #### [facility] [address],[place] BLUE,IGE,IC0.71 KU/LAbnormal<0.35[facility] CenterComment on above:Result Comment: SEE IMMUNOCAP INTERP.IGEPerformed By: #### ICPA2 #### [facility] [address] [place], [place] [address]GRASS,TIN,IGE,IC0.70 KU/LAbnormal<0.35[facility] CenterComment on above:Result Comment: SEE IMMUNOCAP INTERP.IGEPerformed By: #### ICPA2 #### [facility] [address] [place], [place] [address]IMMUNOCAP NTL044.0 KU/LHigh0.0 - 214.0[facility] CenterComment on above:Result Comment: Note: Omalizumab (Xolair, Genentech; humanized IgG1 antihuman IgE Fc) treatment does not significantly interfere with the accuracy of total IgE on the ImmunoCAP ([employer]) platform. J Allergy Clin Immunol 2006;117:759-66). Allergens, parasitic diseases, smoking, and alcohol consumption have been reported to increase levels of total IgE in serum.Performed By: #### ICPA2 #### [facility] [address] [place], [place] [address]LAMBS QUARTERS,IGE,IC0.11 KU/LNormal<0.35[facility] CenterComment on above:Result Comment: SEE IMMUNOCAP INTERP.IGEPerformed By: #### ICPA2 #### [facility] [address] [place], [place] [address]YWAWQWKB, WHITE, IGE,IC<0.10Normal<0.35[facility] CenterComment on above:Result Comment: SEE IMMUNOCAP INTERP.IGEPerformed By: #### ICPA2 #### [facility] [address] [place], [place] [address]PGJ,IGE,IC<0.10Normal<0.35[facility] CenterComment on above:Result Comment: SEE IMMUNOCAP INTERP.IGEPerformed By: #### ICPA2 #### [facility] [address] [place], [place] [address]MAPMN HICKORY,IGE,IC0.17 KU/LNormal<0.35[facility] CenterComment on above:Result Comment: SEE IMMUNOCAP INTERP.IGEPerformed By: #### ICPA2 #### [facility] [address] [place] [id number],IGE,IC<0.10Normal<0.35[facility] Comment on above:Result Comment: SEE IMMUNOCAP INTERP.IGEPerformed By: #### ICPA2 #### [facility] [address] [place], [place] [address]NZHZYDU,IGE,IC0.17 KU/LNormal<0.35[facility] Comment on above:Result Comment: SEE IMMUNOCAP INTERP.IGEPerformed By: #### ICPA2 #### [facility] [address] [place], [place] [address]HOEOCMR,SHORT,IGE,IC0.88 KU/LAbnormal<0.35[facility] CenterComment on above:Result Comment: SEE IMMUNOCAP INTERP.IGEPerformed By: #### ICPA2 #### [facility] [address] [place], [place] [address]TCRXZNX THISTLE,IGE,IC0.44 KU/LAbnormal<0.35[facility] CenterComment on above:Result Comment: SEE IMMUNOCAP INTERP.IGEPerformed By: #### ICPA2 #### [facility] [address] [place], [place] [address]XMBDA SORREL,IGE,IC<0.10Normal<0.35[facility] CenterComment on above:Result Comment: SEE IMMUNOCAP INTERP.IGEPerformed By: #### ICPA2 #### [facility] [address] [place], [place] [address]XCVVLRWP,MAPLE LEAF IGE,IC0.12 KU/LNormal<0.35[facility] CenterComment on above:Result Comment: SEE IMMUNOCAP INTERP.IGEPerformed By: #### ICPA2 #### [facility] [address] [place], [place] [address]QQUSPY TREE,IGE,IC0.13 KU/LNormal<0.35[facility] CenterComment on above:Result Comment: SEE IMMUNOCAP INTERP.IGEPerformed By: #### ICPA2 #### [facility] [address] [place], [place] [address]Bkkrzekvum - Allergyon 12-12-2021. alternata IgE Qn (S)4.04 {KU/L}Abnormal<0.25SV-VXRR-[place] [place] [address] Work Phone: Comment on above:SEE IMMUNOCAP INTERP.IGEA. fumigatus IgE Qn (S)0.30 {KU/L}<0.99ZG-SOOF-Renpa [place] [address] Work Phone: Comment on above:SEE IMMUNOCAP INTERP.IGEAmerican house dust mite IgE Qn (S)<0.10<0.15GG-MEYE-Hwbfr [place] [address] Work Phone: Comment on above:SEE IMMUNOCAP INTERP.IGEAmerican Walton IgE Qn (S)0.12 {KU/L}<0.73JB-PHGJ-Hekvx [place] [address] Work Phone: Comment on above:SEE IMMUNOCAP INTERP.IGEBermuda grass IgE Qn (S)<0.10<0.16EB-EOBS-Ixwsd [place] [address] Work Phone: Comment on above:SEE IMMUNOCAP INTERP.IGEBoxelder IgE Qn (S)0.56 {KU/L}Abnormal<0.51HI-SJUS-Vyqhg [place] [address] Work Phone: Comment on above:SEE IMMUNOCAP INTERP.IGEC. herbarum IgE Qn (S)0.38 {KU/L}Abnormal<0.60QA-SJCQ-Faegi [place] [address] Work Phone: Comment on above:SEE IMMUNOCAP INTERP.IGECalifornia Middleport IgE Qn (S)0.13 {KU/L}<0.80WE-XQPN-Qchit [place] [address] Work Phone: Comment on above:SEE IMMUNOCAP INTERP.IGECat dander IgE Qn (S)1.97 {KU/L}Abnormal<0.19RL-WISY-Nqumj [place] [address] Work Phone: Comment on above:SEE IMMUNOCAP INTERP.IGECockroach IgE Qn (S)<0.10<0.59VW-RXOW-Ihlhw [place] [address] Work Phone: Comment on above:SEE IMMUNOCAP INTERP.IGECommon Pigweed IgE Qn (S)0.17 {KU/L}<0.62PU-NVLD-Umnbb [place] [address] Work Phone: Comment on above:SEE IMMUNOCAP INTERP.IGECottonwood IgE Qn (S)<0.10<0.98WB-EKEC-Llclh [place] [address] Work Phone: Comment on above:SEE IMMUNOCAP INTERP.IGEDog dander IgE Qn (S)3.91 {KU/L}Abnormal<0.98XY-BHQV-Jnpdl [place] [address] Work Phone: Comment on above:SEE IMMUNOCAP INTERP.IGEEnglish plantain IgE Qn (S)<0.10<0.60IY-XVLA-Stdce [place] [address] Work Phone: Comment on above:SEE IMMUNOCAP INTERP.IGEEuropean house dust mite IgE Qn (S)<0.10<0.30GD-TDPP-Axwin [place] [address] Work Phone: Comment on above:SEE IMMUNOCAP INTERP.IGEGoosefoot IgE Qn (S)0.11 {KU/L}<0.71HT-EMSF-Eokkn [place] [address] Work Phone: Comment on above:SEE IMMUNOCAP INTERP.IGEJohnson grass IgE Qn (S)<0.10<0.98TD-PURY-Gcbkj [place] [address] Work Phone: Comment on above:SEE IMMUNOCAP INTERP.IGEKentucky blue grass IgE Qn (S)0.71 {KU/L}Abnormal<0.28OW-GWCF-Rnioo [place] [address] Work Phone: Comment on above:SEE IMMUNOCAP INTERP.IGEMountain Juniper IgE Qn (S)0.16 {KU/L}<0.78GD-VSMU-Txupp [place] [address] Work Phone: Comment on above:SEE IMMUNOCAP INTERP.IGEP. notatum IgE Qn (S)<0.10<0.28NS-UFKU-Kcaqb [place] [address] Work Phone: Comment on above:SEE IMMUNOCAP INTERP.IGEPecan or [place] Tree IgE Qn (S)0.17 {KU/L}<0.62SZ-VBAC-Feaca [place] [address] Work Phone: Comment on above:SEE IMMUNOCAP INTERP.IGESaltwort IgE Qn (S)0.44 {KU/L}Abnormal<0.39PI-XRNQ-Sgmpn [place] [address] Work Phone: Comment on above:SEE IMMUNOCAP INTERP.IGESheep [place] IgE Qn (S)<0.10<0.70FK-FPIV-Yljrv [place] [address] Work Phone: Comment on above:SEE IMMUNOCAP INTERP.IGESilver Birch IgE Qn (S)<0.10<0.15WT-BJMZ-Ftyae [place] [address] Work Phone: Comment on above:SEE IMMUNOCAP INTERP.IGETimothy IgG Qn (S)0.70 {KU/L}Abnormal<0.14PT-BAFC-Bsnpw [place] [address] Work Phone: Comdrxh on above:SEE IMMUNOCAP INTERP.IGETotal IgE RAST Qn (S)238.0 {KU/L}above high thresholdSee ZxcyoPU-DUOU-Lapbs [place] [address] Work Phone: Comment on above:Reference Range: 0.0 - 214.0 Note: Omalizumab (Xolair, GeneTheraCell; humanized IgG1 antihuman IgE Fc) treatment does not significantly interfere with the accuracy of total IgE on the ImmunoCAP ([employer]) platform. J Allergy Clin Immunol 2006;117:759-66). Allergens, parasitic diseases, smoking, and alcohol consumption have been reported to increase levels of total IgE in serum.White Jose C IgE Qn (S)0.15 {KU/L}<0.61LO-TLCF-Qgziv [place] [address] Work Phone: Comment on above:SEE IMMUNOCAP INTERP.IGEWhite Elm IgE Qn (S)0.11 {KU/L}<0.85NU-LXDL-Lekxi [place] [address] Work Phone: Comment on above:SEE IMMUNOCAP INTERP.IGEWhite mulberry IgE Qn (S)<0.10<0.09AM-TEFL-Knlcv [place] [address] Work Phone: Comment on above:SEE IMMUNOCAP INTERP.IGEWhite Medora IgE Qn (S)<0.10<0.37II-DHHA-Phiac [place] [address] Work Phone: Comtcwp on above:SEE IMMUNOCAP INTERP.IGENo Panel Informationon 51-93-3442IHB BEPRZVWEH-BLHU-Tdtss [place] [address] Work Phone: Comment on above:REFERENCE RANGE (IMMUNOCAP) IGE KU/L CLASS INTERPRETATION < 0.10 0 BELOW DETECTION 0.10- 0.34 0/1 EQUIVOCAL 0.35- 0.69 1 LOW POSITIVE 0.70- 3.49 2 MODERATE POSITIVE 3.50- 17.49 3 HIGH TKLBPQAB68.50- 49 4 VERY HIGH JUCVGLEZ75 - 99 5 VERY HIGH POSITIVE >100 6 VERY HIGH POSITIVE0.88 {KU/L}Abnormal<0.83VK-DPQM-[place]i [place] [address] Work Phone: Comment on above:SEE IMMUNOCAP INTERP.IGEOffice Visit (Allergy/Immunology)on 69-30-2497Vzxetr-up visitDiagnoses/Problems Assessed Allergies (995.3) (T78.40XA) Itching (698.9) (L29.9) SOB (shortness of breath) on exertion (786.05) (R06.02) Orders Allergies Respiratory Allergy Profile Region 5, IC; Status:Active; Requested for:[id number]; SOB (shortness of breath) on exertion Start: [...] smoker and has a history of daily smoking.Lung function is reduced today so will plan to start daily inhaler and obtain allergy labs. I will call results of labs. Chief Complaint New patient here to discuss allergies, referred by PCP, Dr. Rio Ambriz, in [place], [place] History of Present IllnessPt here to discuss allergy symptoms. Patient has seen an oxygen system tester in [facility], last tested in 2010. Patient states seasonal and environmental allergies. Patient t is on Zyrtec-D and Benadryl as needed. Takes Zyrtec D in the morning, last this a.m. She had a shot in September for her allergy which she thinks was a steroid. She did have her Pneumovax a couple months ago. Patient did see an oxygen system tester in early 2000. Was on shots 2-3 yrs. She felt it helped. Never diagnosed with asthma Smokes occasionally. She did smoke regular in the past. Uses daily albuterol. She is worried about dog allergy. She has one dog. Patient is retired as a nurse. She worked at [employer]. Moved into a new home a [...] TabletTAKE 1 TABLET DAILY. Zyrtec-D 5-120 MG [id number] 1 TABLET TWICE DAILY NEEDED. Vitals Vital Signs Recorded: 12Dec2021 10:13AM Xajtqnvczog93.1 F, Temporal Heart Rate89 Ksiyycwkooc27 Mfmlqkjl718 Dayomshad77 Height5 ft 8 in Vpduxn342 lb BMI Fqpnahkkir27.3 kg/m2 BSA Calculated1.92 Tobacco Usea) Yes Patient encouraged to stop using tobacco productsYes O2 Mddlcmiwug21, RA Physical Exam Constitutional General appearance: Well [...] distress. Auscultation of bigg (more content not included)...NormalUH TouchworksRESPIRATORY ALLERGY PROFILE,IGE,ICon 67-24-1792PHIENNDKM INTERP.IGESEE COMMENTNormalUEssex County HospitalComment on above:Result Comment: REFERENCE RANGE (IMMUNOCAP) IGE KU/L CLASS INTERPRETATION < 0.10 0 BELOW DETECTION 0.10- 0.34 0/1 EQUIVOCAL 0.35- 0.69 1 LOW POSITIVE 0.70- 3.49 2 MODERATE POSITIVE 3.50- 17.49 3 HIGH POSITIVE 17.50- 49 4 VERY HIGH POSITIVE 50 - 99 5 VERY HIGH POSITIVE >100 6 VERY HIGH POSITIVEPerformed By: #### ICPA2 #### [facility] [address] [place], [place] [address]Nmelyth Screening.on 19-98-9087Nswbrwz use status CPHSa) Yes JW-XOHE-[place] [address] Work Phone: Tobacco Screening.TmoJG-QREE-Vgyqy [address] Work Phone: mg MAMM SCREEN 3D DEREK CADon 40-45-5305LY MAMM SCREEN 3D DEREK CADPatient: ROBBIE ALLISON Exam Date: 09/30/2021 : 1955 Gender:F Ordering : DR. HARITHA KHAN D.O. Admission #: [id number] Family : Order #: [id number] CLICK HERE TO VIEW EXAM RADIOLOGY REPORT [...] breast cancer at age 51. LOCATION: [facility] BREAST COMPOSITION: Heterogeneously dense,which may obscure small [...] LUMP SHOULD BE BIOPSIED. Dictated by: Sae Nice MD on 09/30/2021 at 12:03 Approved by: Sae Nice MD on 09/30/2021 at 12:05[facility] Vital Signs Date TimeVital SignValuePerforming QdevtnfjqLknqrijy31-41-2274 08:28-0400Body getnlr144.45 cmRio Ambriz MD Work Phone: [facility]09-11-2025 08:28-0400 Body mass index (BMI) [Ratio]28 kg/h3WjsbrtoRio Ambriz MD Work Phone: [facility]09-11-2025 08:28-0400 Body .5 kgRio Ambriz MD Work Phone: 1(285)950-[address] [place], [place] 2961707-29-2025 10:28-0400 Body bxcath769.45 cmRio Ambriz MD Work Phone: 1(608)[address] [place], [place] 1472907-29-2025 10:28-0400 Body mass index (BMI) [Ratio]28.3 kg/r1ZjxerwvRio Ambriz MD Work Phone: 1(986)204-[address] [place], [place] 2961707-29-2025 10:28-0400 Body tzsdgu62.46 kgRio Ambriz MD Work Phone: 1(271)[address] [place], [place] 1472907-29-2025 10:28-0400 Diastolic blood osjtaeqv14 mm[Hg]Rio Ambriz MD Work Phone: 1(533)[address]07-29-2025 10:28-0400 Heart rate68 /Lashonda Ambriz MD Work Phone: 1(704)[address] [place], [place] 1472907-29-2025 10:28-0400 SaO2% (BldA) [Mass fraction]97 %Rio Ambriz MD Work Phone: 1(907)[address] [place], [place] 1472907-29-2025 10:28-0400 Systolic blood yipunuux277 mm[Hg]Rio Ambriz MD Work Phone: 1(106)[address]06-26-2025 13:48-0400 Body mass index (BMI) [Ratio]29.7 kg/h2Aliaxedh Rinkes DO Work Phone: [facility]52 13:48-0400Body tkonej60.46 kgKathleen Rinkes DO Work Phone: [facility] HospitalVvosctkkuo35-07-9084 13:48-0400Diastolic blood mm[Hg]Haritha Rinkes DO Work Phone: [facility] HospitalHlyvztxhvl02-43-6107 13:48-0400Systolic blood gcrdjokt298 mm[Hg]Haritha Rinkes DO Work Phone: [facility] HospitalVrrbkymcis94-10-5985 19:09-0500Diastolic blood wrobqikm05 mm[Hg]Rio Ambriz MD Work Phone: 1(329)[address] [place], [place] 1472902-27-2025 19:09-0500 Heart rate95 /Lashonda Ambriz MD Work Phone: 1(301)[address] [place], [place] 1472902-27-2025 19:09-0500 Respiratory rate16 /Lashonda Ambriz MD Work Phone: 1(261)[address] [place], [place] 1472902-27-2025 19:09-0500 SaO2% (BldA) [Mass fraction]95 %Rio Ambriz MD Work Phone: 1(102)[address] [place], [place] 1472902-27-2025 19:09-0500 Systolic blood mm[Hg]Rio Ambriz MD Work Phone: 1(363)[address] [place], [place] 1472902-27-2025 14:20-0500 Body frlbec367.45 cmRio Ambriz MD Work Phone: 1(144)[address] [place], [place] 1472902-27-2025 14:20-0500 Body iipdxa30.64 kgRio Ambriz MD Work Phone: 1(815)[address] [place], [place] 1472902-06-2025 14:03-0500 Body ipyzoi354.18 cmRio Ambriz MD Work Phone: 1(674)[address] [place], [place] 1472902-06-2025 14:03-0500 Body mass index (BMI) [Ratio]28 kg/x2MxezedvRio Ambriz MD Work Phone: 1(225)[address] [place], [place] 1472902-06-2025 14:03-0500 Body qgyygq11.19 kgRio Ambriz MD Work Phone: 1(774)[address] [place], [place] 1472902-06-2025 14:03-0500 Diastolic blood ctcvkale28 mm[Hg]Rio Ambriz MD Work Phone: 1(821)[address] [place], [place] 1472902-06-2025 14:03-0500 Heart rate79 /Lashonda Ambriz MD Work Phone: 1(348)[address] [place], [place] 1472902-06-2025 14:03-0500 Systolic blood vvpuzndr734 mm[Hg]Rio Ambriz MD Work Phone: 1(227)[address] [place], [place] 1472909-26-2024 10:50-0400 Diastolic blood mm[Hg]MD Rio Ambriz Work Phone: 1(419)[address] [place], [place] 1472909-26-2024 10:50-0400 Heart rate66 /minMD Rio Ambriz Work Phone: 1419)[address] [place], [place] 1472909-26-2024 10:50-0400 Respiratory rate16 /minMD Rio Ambriz Work Phone: 1419)[address] [place], [place] 1472909-26-2024 10:50-0400 SaO2% (BldA) [Mass fraction]95 %MD Rio Ambriz Work Phone: 1419)[address] [place], [place] 1472909-26-2024 10:50-0400 Systolic blood ylcfroas553 mm[Hg]MD Rio Ambriz Work Phone: 1419)[address] [place], [place] 1472909-26-2024 08:54-0400 Body .18 cmMD Rio Hoy Work Phone: 1419)[address] [place], [place] 1472909-26-2024 08:54-0400 Body .28 kgMD Rio Hoy Work Phone: 1(374)[address] [place], [place] 1472909-06-2024 09:37-0400 Body .45 cmMD Rio Hoy Work Phone: 1(231)[address] [place], [place] 1472909-06-2024 09:37-0400 Body mass index (BMI) [Ratio]27 kg/m2MD Rio Hoy Work Phone: 1(629)[address] [place], [place] 1472909-06-2024 09:37-0400 Body .37 kgMD Rio Hoy Work Phone: 1(100)[address] [place], [place] 1472907-30-2024 09:57-0400 Body yrwxpy317.18 cmMD Rio Hoy Work Phone: 1(164)[address] [place], [place] 1472907-30-2024 09:57-0400 Body mass index (BMI) [Ratio]28 kg/m2MD Rio Hoy Work Phone: 1(523)[address]07-30-2024 09:57-0400 Body knvhla05.19 kgMD Rio Hoy Work Phone: 1(321)[address] [place], [place] 1472907-30-2024 09:57-0400 Diastolic blood icfjuelh07 mm[Hg]MD Rio Ambriz Work Phone: 1(539)[address]07-30-2024 09:57-0400 Heart rate86 /minMD Rio Nguyeny Work Phone: 1(742)[address] [place], [place] 1472907-30-2024 09:57-0400 SaO2% (BldA) [Mass fraction]98 %MD Rio Ambriz Work Phone: 1(151)[address] [place], [place] 1472907-30-2024 09:57-0400 Systolic blood dfxlxcup862 mm[Hg]MD Rio Ambriz Work Phone: 1(991)[address] [place], [place] 1472904-25-2024 13:43-0400 Body kypkrd378.18 cmMD Rio Hoy Work Phone: 1(607)[address] [place], [place] 1472904-25-2024 13:43-0400 Body mass index (BMI) [Ratio]27.6 kg/m2MD Rio Nguyeny Work Phone: 1(967)[address] [place], [place] 1472904-25-2024 13:43-0400 Body gcdlbi21.83 kgMD Rio Hoy Work Phone: 1(072)[address] [place], [place] 1472904-25-2024 13:43-0400 Diastolic blood pwqigzdk39 mm[Hg]MD Rio Ambriz Work Phone: 1(861)[address] [place], [place] 1472904-25-2024 13:43-0400 Heart rate84 /minMD Rio Ambriz Work Phone: 1(894)[address] [place], [place] 1472904-25-2024 13:43-0400 SaO2% (BldA) [Mass fraction]98 %MD Rio Ambriz Work Phone: 1(974)[address]04-25-2024 13:43-0400 Systolic blood cmzuzspk342 mm[Hg]MD Rio Ambriz Work Phone: [facility]09-20-2022 13:39-0400 Body mass index (BMI) [Ratio]26.3 kg/m2Kvhxssdzk Provider MysunlfAA-OBJX-Gvqtx [place] [address] Work Phone: 1(762) 502-336609-20-2022 13:39-0400Body surface area Derived from formula1.92 w7Pskdarzyp Provider PvtmfjuLH-BPSD-Iflrw [place] [address] Work Phone: 1(873) 153-403009-20-2022 13:39-0400Body fxxaggtxsqz81.1 [degF] Referring Provider WjumwsmQB-GLKA-Jxusq [place] [address] Work Phone: 1(577) 129-145409-20-2022 13:39-0400Body nbcqpo37.47 kgReferring Provider QjzxpnjCK-AGXY-Efkyd [place] [address] Work Phone: 1(997) 844-134909-20-2022 13:39-0400Diastolic blood ktfdlfue55 mm[Hg] Referring Provider LozpwdyWI-UIJP-Btafg [place] [address] Work Phone: 1(789) 817-886809-20-2022 13:39-0400Heart rate88 /minReferring Provider WwdzpleKD-PMOX-Xjfym [place] [address] Work Phone: 1(305) 297-521709-20-2022 13:39-0400Respiratory rate16 /minReferring Provider UkbrglbXW-ZBUE-Rpner [place] [address] Work Phone: 1(715) 906-917609-20-2022 13:39-5145OtF9% (BldA) [Mass fraction]98 % Referring Provider BmpuaigMF-ONOE-Nctho [place] [address] Work Phone: 1(607) 970-174909-20-2022 13:39-0400Systolic blood etmrqyud049 mm[Hg] Referring Provider VngwzrtCW-NQXG-Ymhvu [place] [address] Work Phone: 1(589) 842-194608-22-2022 10:13-0400Body tuvybb735.72 cmReferring Provider GoxphfcWT-AMLB-Mddwo [address] Work Phone: 1(740) 351-161708-22-2022 10:13-0400Body mass index (BMI) [Ratio]26.3 kg/n2Yrljbhncm Provider JzznvqwYB-ZFDI-Rshor [place] [address] Work Phone: 1(216) 107-190208-22-2022 10:130400Body surface area Derived from formula1.92 c4Havhrospt Provider CwexvmgWZ-ZNFP-Zzzkn [place] [address] Work Phone: 1(721) 633-972308-22-2022 10:130400Body nzbnibwemwz69.1 [degF] Referring Provider WtqxjtvGJ-YSLU-Xrgau [place] [address] Work Phone: 1(158) 979-947508-22-2022 10:13-0400Body kpxtge32.47 kgReferring Provider XjuqoapQJ-GXKI-Wjpfw [place] [address] Work Phone: 1(572) 126-363108-22-2022 10:13-0400Diastolic blood yywtmwfp72 mm[Hg] Referring Provider ZazptiwWO-LUMB-Fmutl [place] [address] Work Phone: 1(786) 546-854908-22-2022 10:13-0400Heart rate89 /minReferring Provider ZzxonisWE-XNDN-Rznmh [place] [address] Work Phone: 1(141) 167-801108-22-2022 10:130400Respiratory rate17 /minReferring Provider ZaefjqcTY-SFZF-Scbnp [place] [address] Work Phone: 1(749) 605-956508-22-2022 10:131451OaW5% (BldA) [Mass fraction]99 % Referring Provider VfmxcwxNQ-ATQE-Ulxeb [place] [address] Work Phone: 1(326) 373-329808-22-2022 10:13-0400Systolic blood ugstgqwq390 mm[Hg] Referring Provider HqcnetlJW-DGUE-Ebyay [place] [address] Work Phone: 1(709) 318-908110-04-2021 09:45-0400Body heightJustkev Belinda Other [facility] Other 10-04-2021 09:45-0400Body mass index (BMI) [Ratio] 23.57 kg/z5Wrghoikev Trevino Other [facility] Other 10-04-2021 09:45-0400Body .31 kgJustkev Trevino Other [facility] Other 09-17-2021 10:30-0400Body heightJustkev Trevino Other [facility] Other 09-17-2021 10:30-0400Body mass index (BMI) [Ratio] 23.57 kg/c2Quyyrzkev Trevino Other [facility] Other 09-17-2021 10:30-0400Body kaqkxn92.31 kgJustkev Trevino Other [facility] Other 09-17-2021 10:30-0400Diastolic blood mm[Hg] Arvind Trevino Other [facility] Other 09-17-2021 10:30-0400Systolic blood rwuniukw865 mm[Hg] Arvind Trevino Other [facility] Other Encounters Encounter DateEncounter [facility] ProviderFacilityStart: 02-24-2025 End: 41-64-6877tzrwxziumqZhjezwa HoyFacility:FTMCStart: 02-20-2025 End: 60-66-8286hgedfnocumPoxvutia Rebollar PTANOMS Crystal Physical TherapyComment on above:Thoracic spondylosis (Primary Dx)Start: 02-20-2025 End: 28-03-0888Ejrjrh flowsheetDanielle Rebollar [facility] Start: 02-20-2025 End: 28-54-9155Qxfilb flowsheetDanielle Rebollar [facility] Start: 02-19-2025 End: 61-25-1652apwtoiryexZHQTXIZ [facility] Centertart: 02-13-2025 End: 28-17-2475Ckbyye flowsheetDanielle Rebollar PTAN[facility] Start: 02-13-2025 End: 83-62-5930Drnqhd flowsheetDanielle Rebollar [facility] Start: 02-13-2025 End: 31-06-3493guskxeemnjCwpihpoo Rebollar PTANOMS Crystal Physical TherapyComment on above:Thoracic spondylosis (Primary Dx)Start: 02-02-2025 End: 37-78-3998jrslxobeisPprh M Medves PT Work Phone: noms Crystal Physical TherapyComment on above:Thoracic spondylosis (Primary Dx)Start: 01-30-2025 End: 12-48-7238Eavjfz flowsheetDanielle Rebollar [facility] Start: 01-30-2025 End: 83-68-4630Rxtbuj flowsheetDanielle Rebollar [facility] Start: 01-30-2025 End: 04-05-3190dqwwxbqvfaCfnejacd Rebollar PTANOMS Crystal Physical TherapyComment on above:Thoracic spondylosis (Primary Dx)Start: 01-14-2025 End: 20-78-1241Aobode flowsheetKylie Finneran PTNOMS [facility] Occupational MedicineStart: 01-14-2025 End: 85-48-4826Ladivt flowsheetKylie Finneran PTNOMS [facility] Occupational MedicineStart: 01-14-2025 End: 98-58-4690byudbqvmpfWzram Finneran PTNOMS [facility] Comment on above:Thoracic spondylosis (Primary Dx)Start: 01-06-2025 End: 88-94-3914qhgefzifzjFuxihg SpringerFacility:FTMCStart: 01-01-2025 End: 34-00-5653eoacguvvmhUuhosxs M Hoy MD Work Phone: [facility] Work Phone: Start: 01-01-2025 End: 02-11-0889Hufnewu encounter procedureTarik Fontenot MD-[facility] Work Phone: start: 12-03-2024 End: 25-18-8834Xbvgmwo encounter procedureRio Allison MD-MRI [address] Cl[address] Work Phone: Start: 12-03-2024 End: 97-36-6460jrrxqvhvgkCkidkow M Hoy MD Work Phone: [facility] Work Phone: Start: 11-18-2024 End: 65-90-5769aqodvfshmgKuhcfjr M Hoy MD Work Phone: [facility] Work Phone: Start: 11-18-2024 End: 59-88-2123Asngdts encounter Michael Hernandez NP-[facility] Sleep Lab Work Phone: Start: 11-15-2024 End: 11-49-6129Dedoswa encounter procedureRio Allison MD-ay [facility] Work Phone: Start: 11-15-2024 End: 85-39-8712glvmyhijroJgdvjrg M Hoy MD Work Phone: [facility] Work Phone: Start: 10-16-2024 End: 79-27-9580Sguluj flowsheetKathleen E Rinkes DO Work Phone: noms SWS OBStart: 10-16-2024 End: 50-88-2762Orthex flowsheetKathleen E Rinkes DO Work Phone: [facility]oms SWS OBStart: 10-16-2024 End: 48-14-2196Cxqsyr outpatient visit 25 minutesKathleen E Rinkes DO Work Phone: noms SWS OBComment on above:Vaginal atrophy; Encounter for screening mammogram for breast cancer; Postmenopausal HRT (hormone replacement therapy)Start: 10-16-2024 End: 98-86-9697xwvzqymevaVQHQEBNK E RINKESNot AvailableStart: 09-22-2024 ambulatoryABMercy Health Allen Hospitaltart: 09-02-2024 End: 06-21-5823Gdidvo OnlyJodyte Anali Glynn MD Work Phone: cardiologyComment on above:Tachycardia (Primary Dx) Start: 07-73-0276eekihprwjeYMYPBXCJLakeHealth [facility]wood [facility] Center Start: 07-31-2024 End: 41-47-1019zkwrsakxpnEJIIMer[address] Health [address] Hospitaltart: 07-29-2024 End: 26-77-4825Ztypeum encounter procedureRio Ambriz MD Work Phone: [facility]-Lab [facility]lingtontart: 07-29-2024 End: 88-02-0212pjradarchtBrlzugo M Hoy MD Work Phone: [facility] Work Phone: Start: 90-49-9372Xpodyrkav for other preprocedural examinationNaval Hospital Jacksonville Physician GroupStart: 07-14-2024 End: 95-41-3224pgcrspmkcgHRUFMercy Health St. Elizabeth [facility] Hospitaltart: 07-07-2024 End: 56-70-9664Ahamrhv encounter procedureRio Ambriz MD Work Phone: [facility]-Electrodiagnostics Work Phone: Start: 07-07-2024 End: 81-02-7586khvxyqaygoPoadhcg M Hoy MD Work Phone: [facility] Work Phone: Start: 06-19-2024 End: 32-68-1464Cpoakvrwl department patient visitRio Ambriz MD Work Phone: [facility]-Emergency Room Work Phone: Start: 05-29-2024 End: 49-71-7344bbkckwfwwyGyzhmla M Hoy MD Work Phone: [facility] Work Phone: Start: 05-29-2024 End: 66-17-7687Gpsvunn encounter procedureRio Ambriz MD Work Phone: [facility] Group-[facility] Health Gastro Work Phone: Start: 05-13-2024 End: 17-45-1162yzyjmqtdtlPtxegyu M Hoy MD Work Phone: [facility] Work Phone: Start: 05-13-2024 End: 44-18-6891Hwlmkpo encounter procedureRio Ambriz MD Work Phone: [facility]-Lab [place] Work Phone: Start: 05-12-2024 End: 31-74-5188bhgiqapjshUbcmtwl M Hoy MD Work Phone: [facility] Work Phone: Start: 05-12-2024 End: 25-51-8012Ibexnnt encounter procedureRio Ambriz MD Work Phone: [facility]-Lab [place] Work Phone: Start: 03-24-2024 End: 01-27-3480vllunyoiauSKEO [facility] Centertart: 97-79-3592Uli-patient / Non-visitMD Rio Ambriz Work Phone: [facility] Gastroenterology Work Phone: Start: 01-17-2024 End: 43-76-2660Iatzsmyiv to same day surgery centerMD Rio Ambriz Work Phone: [facility]-Digestive Health Work Phone: Start: 01-17-2024 End: 01-76-6310qabbfljorvBB Rio Ambriz Work Phone: [facility] Work Phone: Start: 12-31-2023 End: 45-64-8560Vhkjpcv encounter procedureMD Rio Hoy Work Phone: [facility]-Lab [place] Work Phone: Start: 12-31-2023 End: 71-78-9147zwmuaeieysXS Rio M Hoy Work Phone: [facility] Work Phone: Start: 12-28-2023 End: 08-73-8803aanphcmwqqFW Rio M Hoy Work Phone: [facility] Work Phone: Start: 12-28-2023 End: 43-28-8628Attbpxo encounter procedureMD Rio Hoy Work Phone: [facility] Gastroenterology Work Phone: Start: 11-20-2023 End: 59-99-8622itcctnwkorNK Rio M Hoy Work Phone: [facility] Work Phone: Start: 11-20-2023 End: 85-49-8431Uruzdfa encounter procedureMD Rio Hoy Work Phone: [facility] Work Phone: Start: 10-23-2023 End: 01-17-8751zefyfbkaaoNT Rio M Hoy Work Phone: [facility] Work Phone: Start: 10-23-2023 End: 93-52-1767Vlmoxkn encounter procedureMD Rio Hoy Work Phone: [facility]-Lab [address] Work Phone: Start: 10-03-2023 End: 14-49-2201ohnjrgpgtcDE Rio M Hoy Work Phone: [facility] Work Phone: Start: 10-03-2023 End: 74-92-1819Vwnggve encounter procedureMD Rio Hoy Work Phone: [facility] Work Phone: Start: 72-01-9721Yan-patient / Non-visitMD Rio Hoy Work Phone: [facility] Sleep Lab Work Phone: Start: 09-04-2023 End: 21-19-7868Selfebg encounter procedureMD Rio Hoy Work Phone: [facility]-Sleep Lab Work Phone: Start: 08-16-2023 End: 89-74-2874iebyqotcfiZJ Rio M Hoy Work Phone: [facility] Work Phone: Start: 08-16-2023 End: 39-16-2850Jtooikl encounter procedureMD Rio Hoy Work Phone: [facility] Sleep Lab Work Phone: Start: 08-15-2023 End: 13-98-3451fotwnehhvfLY Rio M Hoy Work Phone: [facility] Work Phone: Start: 08-15-2023 End: 01-89-9151Efulvuc encounter procedureMD Rio Hoy Work Phone: [facility] Work Phone: Start: 08-01-2023 End: 17-17-3489ryygugioosNG Rio M Hoy Work Phone: [facility] Work Phone: Start: 08-01-2023 End: 64-26-0284Ikwatfj encounter procedureMD Rio Hoy Work Phone: [facility] Work Phone: Start: 08-01-2023 End: 24-40-9432qslibalxzuTJ Rio M Hoy Work Phone: [facility] Work Phone: Start: 08-01-2023 End: 91-78-6597Qtfdpzi encounter procedureMD Rio Hoy Work Phone: [facility]-XRay [facility] Start: 07-10-2022 End: 05-23-5173swqgytvrwiFJ RIO HOY .Facility:C9Pjihv: 06-27-2022 End: 63-17-9425ikkvjajwimFP RIO HOY .Facility:I3Vjjgp: 05-23-2022 End: 46-84-7361pdhfcspwryUJ RIO HOY .Facility:T6Egmwq: 93-57-1288Sfvjhg outpatient visit 15 minutesReferring Provider KhpmujyLQ-PGGU-Xajmo [place] [address] Work Phone: Start: 41-31-8584rggsxygnleNIO UNKNOWNFacility:[address] Start: 23-22-4172Npgnpc outpatient new 45 minutesReferring Provider Unknown BH-CZKI-Hscav [place] [address] Work Phone: Start: 18-37-2448ermqwmgqgdLRV UNKNOWNFacility:9451 Start: 11-15-2021 End: 48-07-1098grdfkoixilHFUFIBRY CULLENFacility:T5Pbask: 11-03-2021 End: 28-76-8260Hojtpqsydv RecurringMD Rio Hoy Work Phone: [facility]-Physical Therapy [place] CreekStart: 10-18-2021 End: 93-17-8989etphshfqgoDPEVRBEV CULLENFacility:S1Mkgpk: 09-30-2021 End: 59-23-3847tnndlkslkhZETMGGAA RINKESFacility:H6Gzjht: 08-03-2021 End: 17-45-1932vatyutuvibNcehzc Belinda Other [facility] [employer] Other Start: 18-80-5006Topfenrrp encounterJustin SonaliG [facility]icsStart: 07-06-2021 End: 22-85-4182agyacxttzdDvwkgb Belinda Other noMumart Other Start: 04-95-4905Dlasqe outpatient visit 15 minutes Arvind SonaliG [facility]icsStart: 03-04-2021 End: 97-73-5162qfljcokdtqLopbny Belinda Other noMiCursada [employer] Other Start: 78-67-0479Wirtsqatq encounterJustin SonaliG [facility]opedicsStart: 54-87-1553Qazioq follow up visit related to original pxYenystin SonaliG [facility]icsStart: 15-79-3842Hywfsgtkb encounter Arvind SonaliG [facility]icsStart: 21-78-8879Kuvgfv follow up visit related to original pxYenystin BelindaFPG [facility]opedicsStart: 01-07-2021 End: 12-10-4900ezxsduesaoXhmkbh Belinda Other noMiCursada [employer] Other Start: 02-43-6419Vehwfkolf for other preprocedural examinationJustin SonaliG [facility]icsStart: 04-04-1167Nbbimi outpatient visit 25 minutesJustin SonaliG [facility]icsStart: 28-60-1161Dfejmjk encounterUNABLE TO [facility] SystemStart: 08-04-2017 End: 85-60-2496Yclhsnh encounterAMANDA DAVISFacility:JAMES Procedures DateProcedureProcedure DetailPerforming ClinicianStart: 71-63-3920KL thoracic spine wo Nakia Ambriz MD Work Phone: Start: 83-86-1769W-ray of thoracic spine, three views Rio Ambriz MD Work Phone: Start: 49-03-0517Dlnsa chest X-rayRio Ambriz MD Work Phone: Start: 82-16-8349Usoqz cultureDmuna Ambriz MD Work Phone: Start: 24-96-7581TyqpfszzvqswxdeinqhalgzukdYJ Rio Ambriz Work Phone: Start: 91-66-3404Lrdhg X-ray of right handMD Rio Ambriz Work Phone: Start: 60-19-0660Fuikc X-ray of left hipMD Rio Ambriz Work Phone: Start: 08-78-7579ParwrmvkpzyJimcxeru Rinkes DO Work Phone: start: 36-20-1238VqahbgeoljaRuarl Allyssa PT AppendectomyReferring Provider UnknownCataract surgeryReferring Provider Unknown Excisional biopsy of breastReferring Provider UnknownHysterectomy vaginal Referring Provider UnknownOperation on bladderReferring Provider UnknownRepair of tendonReferring Provider UnknownTotal replacement of hipReferring Provider Unknown Plan of Treatment DateCare ActivityDetailAuthorStart: 43-53-7991AVH Vaccine (1 - 1-dose 75+ series)RSV Vaccine (1 - 1-dose 75+ series)[facility]: 08-[facility]30 Screening for malignant neoplasm of colonPR[facility] HealthcareStart: 10-28-2025 End: 94-25-1202Fzrltrl encounter aojxtivdv39/08/2026 10:15 AM EDT Office Visit [facility] [address] [place] [phone] Haritha Khan DO [address] [place] [address] [facility]: 10-16-2025 End: 57-62-3446LQA Breast - bilateral screeningBilateral screening mammogram with tomosynthesis Imaging Routine Encounter for screening mammogram for breast cancer Expected: 10/16/2025, Expires: 12/16/2025[facility] Work Phone: comment on above:Expected: 10/16/2025, Expires: 12/16/2025Start: 03-12-2025 End: 08-86-9022Siqiaps encounter /20/2025 1:45 PM EST Office Visit Cardiology [address] [place] [address] Sade Glynn MD [address] [place] [address] DX VENTRICULAR TACHYCARDIACardiologyComment on above:DX VENTRICULAR TACHYCARDIAStart: 03-12-2025 End: 85-10-1492qewttalipx21/20/2025 12:30 PM EST Procedure Cardiology [address] [place] [id number] DXVENTRICULAR TACHYCARDIA CardiologyComment on above:DX VENTRICULAR TACHYCARDIAStart: 03-12-2025 End: 35-63-6824Dvsvpks encounter snwuxpxpf38/20/2025 12:15 PM EST Office Visit Cardiology [address] [place] [address] UG VENTRICULAR TACHYCARDIACardiologyComment on above:DX VENTRICULAR TACHYCARDIAStart: 02-20-2025 End: 43-66-7484vilmmfdzqu43/31/2025 3:00 PM EDT Treatment [facility] [address] [place] [phone] Pam Rebollar, VP INFORMATICS [facility]: 02-17-2025 End: 03-05-8574uhpiucjopv43/28/2025 10:00 AM EDT Treatment [facility] [address] [place] [address] Pam Rebollar, VP INFORMATICS [facility]: 02-05[facility]2025 End: 98-23-8845mycerihwmo86/16/2025 3:00 PM EDT Treatment [facility] [address] [place] [phone] Pam Rebollar, VP INFORMATICS [facility]Start: 02-02-2025 End: 45-23-9237arewlpygap55/13/2025 3:00 PM EDT Treatment [facility] [address] [place] [phone] Vitaly Barboza, PT [address] [place] [address] [facility]Start: 01-30-2025 End: 87-69-4469jpiztnihxj57/10/2025 2:00 PM EDT Treatment [facility] [address] [place] [phone] Pam Rebollar, VP INFORMATICS Thoracic spondylosis (Primary Dx)[facility] TherapyComment on above: Thoracic spondylosis (Primary Dx)Start: 01-14-2025 End: 72-59-9201ibvxmkzfvk15/24/2025 8:30 AM EDT Evaluation [facility] [address] [place] [phone] Precious Spivey, KORI Arrived[facility] Comment on above:ArrivedStart: 95-35-2844Tlbmgwc referralMercy Hospital Work Phone: Start: 87-51-3151SREYJ-19 Vaccine ( season) COVID-19 Vaccine ( season)[facility] HealthcareStart: 73-65-1203Ebzqeqblo vaccinationKettering Health Prebletart: 10-16-2024 End: 91-30-7521Waxerjq encounter /26/2025 2:00 PM EDT Office Visit [facility] [address] [place] [phone] Haritha Khan DO [address] [place] [address] Vaginal atrophy; Encounter for screening mammogram for breast cancer; Postmenopausal HRT (hormone replacement therapy)[facility] OBComment on above:Vaginal atrophy; Encounter for screening mammogram for breast cancer; Postmenopausal HRT (hormone replacement therapy)Start: 06-13-2025Medicare Annual Wellness (AWV)Medicare Annual Wellness (AWV)[facility] HealthcareStart: 04-23-2024 Advance Directive DiscussionAdvance Directive DiscussionKettering Health Prebletart: 11-45-2374VthgqntioParma Community General Hospitaltart: 84-77-4683Cgrmtjxrtnahugy sp Ag [Presence] in Stool by ImmunoassayParma Community General Hospitaltart: 72-06-1552Fufkzgir.pancreatic [Mass/mass] in StoolParma Community General Hospitaltart: 44-99-0167Xhqnexv lamblia Ag [Presence] in Stool by Immunoassay [facility]: 12-31-2023 End: 25-07-6165XckyfrsdaParma Community General Hospitaltart: 40-58-8692Plbsb-19 Vaccine ( season)Covid-19 Vaccine ( season)[facility]: 87-16-3441GrsmbfjamParma Community General Hospitaltart: 72-78-1451Wblej X-ray of right handXR hand RT min 3V*[facility]: 56-67-1109SO Hand - right GE 3 ViewsParma Community General Hospitaltart: 65-09-8031Wiocq X-ray of left hipXR hip LT min 2V(w/wo pelvis)*[facility]: 19-01-2625AA Hip - left 2 [facility]: 24-63-3492Slkjwilyo for malignant neoplasm of breast MammogramPR[facility] HealthcareStart: 00-67-0713FWB, Provider: La Nena Miguel, Status: Pen, Time: 2:10 PMFUV, Provider: La Nena Miguel, Status: Pen, Time: 2:10 TQFE-TSNM-GqzfyJackson [facility] [address] Work Phone: Start: 68-86-7657Uqzzhczrt for osteoporosisBone Density ScreeningKettering Health Prebletart: 14-80-6624Tscppxjqmvof Vaccine: 50+ (1 of 1 - PCV)Pneumococcal Vaccine: 50+ (1 of 1 - PCV)[facility]: 22-31-2437Obmhxket Vaccine (1 of 2)Shingrix Vaccine (1 of 2)[facility] Start: 42-09-2263Ibsqnvlr ScreeningDiabetes ScreeningKettering Health Prebletart: 40-39-0834Dgnxq panelLipid ScreeningKettering Health Prebletart: 81-18-2173Hgoleoxea for malignant neoplasm of colonKettering Health Prebletart: 56-96-7576Ttsofxune for malignant neoplasm of breastMammogram ScreeningKettering Health Prebletart: 1975 Urine microalbumin profileDTaP,Tdap,Td Vaccine (1 - Tdap)[facility]: 26-74-5623Ivwgkpk ScreeningAnxiety ScreeningKettering Health Prebletart: 1974 Depression ScreeningDepression ScreeningKettering Health Prebletart: 1974 Hepatitis C screeningHepatitis C ScreeningKettering Health Prebletart: 1963 DTaP/Tdap/Td Vaccines (1 - Tdap)DTaP/Tdap/Td Vaccines (1 - Tdap)[facility] Healthcare Start: 32-02-0537Vyoaeinnu for malignant neoplasm of colonNOMS Healthcare End: 95-39-2885TPX COMPLETEECG COMPLETE ECG Routine Tachycardia 1 Occurrences starting 09/02/2024 until 09/02/2025[facility] Work Phone: comment on above:1 Occurrences starting 09/02/2024 until 09/02/2025Elastase.pancreatic [Mass/mass] in StoolPromedica Flower HospitalEndomysial antibody IgA levelPromedica Flower Hospital Gliadin peptide IgA Ab [Units/volume] in SerumPromedica Flower Hospital Gliadin peptide IgG Ab [Units/volume[facility] in [facility] Homogenous nuclear Ab pattern [Titer] in [facility] IgA [Mass/volume] in Serum or PlasmaPromedica Flower HospitalNuclear Ab [Titer] in City HospitalPatient EducationCleveland Clinic Children'S [facility] Rehabilitation [facility] Work Phone: Patient referralCleveland Clinic Children'S Hospital [facility] Work Phone: Tissue transglutaminase IgA Ab [Units/volume] in [facility] HospitalTissue transglutaminase IgG Ab [Units/volume] in [facility] Immunizations Immunization DateImmunizationNotesCare OaqkftirZjleewnu57-27-3616ihsqvphjd virus vaccine, unspecified formulationKathleen Rinkes DO Work Phone: [facility] HospitalNfjymkpbwo86-88-6634Un not use COVID-19 Pfizer 2 doseJustin Belinda Other [facility]04-16-2021Do not use COVID-19 Pfizer 2 doseJustin Belinda Other [facility]11-21-2018Influenza, injectable, Madin Rebecca Canine Kidney, quadrivalent with preservativeKathleen Rinkes DO Work Phone: [facility] HospitalUxixlrgdsd70-42-2152nrazzesxm, injectable, quadrivalent, preservative freeKathleen Rinkes DO Work Phone: [facility] Payers DatePayer CategoryPayerPolicy [id number] (Managed Care) [id number] 2..[id number] 2..9.974394.8954-06-1955 [id number] 2..1.653129.3.57[id number] 2..1.701537.3.57[id number] 2.840.1.161111.3.57[id number] 2.0.1.244734.3.57[id number] 2.16.840.1.525781.3.57[id number] 2.16.840.1.889156.3.57[id number] 2.16840.1.400538.3.57[id number] 2.16840.1.135567.3.579.[id number] 2.160.1.830791.3.57[id number] 2.840.1.172120.3.57[id number] 2.0.1.431596.3.57[id number] 2.0.1.823980.3.57[id number] 2.840.1.532446.3.579.[id number] 2.0.1.672190.3.57[id number] 2.0.1.532011.3.57[id number] 2.840.1.411407.3.57[id number] 2.16840.1.978343.3.579.2.727[id number] Rule Ins [facility] [id number] 2.16.840.1.37430[id number] 2.16.840.1.837841.3.579.2.531 [id number] 2.16.840.1.99[id number] 2.16.840.1.3[id number] 2.16.840.1.434460.3.579.2.531 [id number] 2.16.840.1.103[id number] 2.16.840.1.6[id number] 2.16.840.1.283595.3.579.2.531 Social History DateTypeDetailFacilityUnknown if ever smokedNocedar [facility] hospital Media [employer] Other Start: 09-12-2022 End: 90-88-5273Xaz Assigned At [facility]Start: 09-12-2022 End: 10-75-1079Mdvhlmnez smokerCigarette smokerChristian HospitalStart: 01-25-2021 End: 22-05-2913Tsgysnw smoking status NHISSmoker (finding)[facility]tart: 30-28-8470Syy Assigned At [facility] Daytontart: 09-19-2022 End: 60-57-8815Ruwpaeg smoking status NHISEx-smoker (finding)[facility]tart: 05-13-2024 End: 74-25-7000ZsiPheqri (finding)[facility]lower HospitalTobacc smoking status NHISTobacco smoking consumption unknownKettering Health Prebletart: 48-21-2735Bsk assigned at birthNot on fileMansfield HospitalHistory of tobacco use Cigarette SmokerNOMT HealthcareStart: 29-93-0538Mwiygtv use and exposure Smokeless tobacco non-userNOMS HealthcareStart: 10-10-2024 End: 14-26-5667Eazzzausa beverage intakeCurrent drinker of alcohol (finding)[facility] HealthcareHow often to you have a drink containing alcohol?2-3 time sa weekNOMS HealthcareHow many standard drinks containing alcohol do you have on a typical day?1 or 2N[facility]S HealthcareHow often do you have 6 or more drinks on 1 occasion? NeverNOMS HealthcareStart: 75-94-6255Xbsymsl Commentcaffeine intake: noneNOMT HealthcareStart: 50-03-1444Thetfe identityIdentifies as female gender (finding) [facility] HealthcareStart: 43-90-3911Vuruld orientationHeterosexual (finding)[facility] HealthcareStart: 16-92-7056BowNzmvpkECMU Healthcare Medical Equipment Procedure CodeEquipment CodeEquipment Original TextEquipment IdentifierDates 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Coated hip femur prosthesis, modular()[id number] FDAStart: 01-11-2021 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Acetabular shell ()[id number] FDAStart: 16-74-1274Zyazedmcd invasive revision of total replacement of hipNon-constrained polyethylene acetabular liner()[id number] FDAStart: 43-57-0096Adeumrwry invasive revision of total replacement of hipCeramic femoral head prosthesis ()[id number] FDAStart: 01-86-1899Lqdgmnjyg invasive revision of total replacement of hipOrthopaedic bone screw, non-bioabsorbable, sterile([id number] FDAStart: 43-43-3769Wmekquimr invasive revision of total replacement of hipOrthopaedic bone screw, non- bioabsorbable, sterile([id number] FDAStart: 01-11-2021 Goals DatePatient GoalDesired Activity/State Clinical Notes 01-07-2021 to 02-24-2025 Note Date & GjcyQefoWeibohex97-02-7108 NoteConsultation Note Patient: ROBBIE ALLISON Age: 69 years Sex: Female : 1955 Associated Diagnoses: None Author: Salima Bassett PA-C Subjective Chief complaint 02/24/2025 14:01 EST back pain . Patient is a 69-year-old female. She presents today for follow-up after undergoing thoracic paraspinal trigger point injections. This was done on 01/06/2025 and has given her 110% relief. She statesthat overall, it was very beneficial. She is very happy with how she is feeling. She has some minimal pain with certain maneuvers that she rates a 2/10 but overall, she states that things are significantly improved. She is comfortable and happy. She is doing well. She intermittently uses ibuprofen also with some relief. She is doing therapy currently and she feels like it is helping but it is somewhat taxing for her due to finances. She is considering getting some home exercises and doing it onher own. Health Status Allergies: Allergic Reactions (Selected) Severe Cipro- Unknown. Dilaudid- Unknown and unknown. Sulfa drugs- Unknown. Severity Not Documented Penicillin- Unknown., Allergies (4) Active Severity Reaction sulfa drugs Severe Unknown Dilaudid Severe Unknown, Unknown Cipro Severe Unknown penicillin Unknown Current medications: (Selected) Documented Medications Documented Multi Vitamin+: Oral, Daily, Refill(s) 0 Pristiq 50 mg Tab-ER: 50 mg = 1 tab(s), Oral, Daily, # 30 tab(s), Refills(s) 0 Wixela Inhub 250 mcg-50 mcg inhalation powder: 1 inh, Inhalation, BID, Refill(s) 0 amLODIPine 5 mg Tab: 5 mg = 1 tab(s), Oral, Daily, Refills(s) 0 carisoprodol 350 mg Tab: mg tab(s), Oral, QID, Refills(s) 0 carvedilol 25 mg Tab: 25 mg = 1 tab(s), Oral, BID, Refills(s) 0 estradiol 0.5 mg Tab: 0.5 mg = 1 tab(s), Oral, Daily, Refills(s) 0 flecainide 50 mg Tab: 50 mg = 1 tab(s), Oral, Daily, Refills(s) 0 ibuprofen 800 mg Tab: 800 mg = 1 tab(s), Oral, TID, PRN for pain, # 30 tab(s), Refills(s) 0 levothyroxine 50 mcg (0.05 mg) Tab: See Instructions, 2 tab(s) Oral Daily, Refills(s) 0 lisinopril: 40 mg, Oral, Daily magnesium oxide 250 mg oral tablet: Oral, Daily, Refills(s) 0 omeprazole 40 mg Cap-DR: mg cap(s), Oral, Daily, Refills(s) 0 simvastatin 20 mg Tab: 20 mg = 1 tab(s), Oral, Once a day (at bedtime), # 30 tab(s), Refills(s) 0 Suspended dicyclomine 20 mg Tab: mg tab(s), Oral, QID, Refills(s) 0 Problem list: All Problems RUQ abdominal pain / SNOMED CT 345358253 / Confirmed Elevated liver enzymes / SNOMED CT 8829518836 / Confirmed Hypothyroidism / SNOMED CT 53781762 / Confirmed Chronic GERD / SNOMED CT 685439568 / Confirmed Hoarseness / SNOMED CT 298882983 / Confirmed Hair loss / SNOMED CT 526670627 / Confirmed Asthma / SNOMED CT 828488274 / Confirmed Arthralgia / SNOMED CT 60771862 / Confirmed Spondylosis of lumbar spine / SNOMED CT 895105850 / Confirmed Hx of colonic polyps / SNOMED CT 2949307200 / Confirmed Abdominal pain, generalized / SNOMED CT 796845465 / Confirmed Nausea / SNOMED CT 6905645255 / Confirmed Diarrhea / SNOMED CT 539000601 / Confirmed Early satiety / SNOMED CT 7849148445 / Confirmed Weight loss, unintentional / SNOMED CT 0844932217 / Confirmed Hiatal hernia / SNOMED CT 405800347 / Confirmed IBS (irritable bowel syndrome) / SNOMED CT 08737198 / Confirmed Back pain, thoracic / SNOMED CT 614188668 / Confirmed Amplified musculoskeletal pain / SNOMED CT 533512433 / Confirmed Objective Vital Signs 02/24/2025 14:01 EST Peripheral Pulse Rate 82 bpm Respiratory Rate 16 br/min Systolic Blood Pressure 116 mmHg Diastolic Blood Pressure 78 mmHg Mean Arterial Pressure, Cuff 91 mmHg General: Alert and oriented, No acute distress. Eye: Normal conjunctiva. HENT: Normocephalic, Normal hearing. Cardiovascular: No edema. Musculoskeletal Normal range of motion. Normal strength. 5/5 lower extremity strength 5/5 upper extremity strength Integumentary: Warm, Dry, [place]. Neurologic: Alert, Oriented. Psychiatric: Cooperative, Appropriate mood & affect. 14 point review of systems was negative unless otherwise noted. Impression and Plan Patient is a 69-year-old female with a past medical history significant for thoracic back pain and myalgia. Recent thoracic paraspinal trigger point injections done on 01/06/2025 has given patient significant relief. She is pleased. She is comfortable. She is happy. She is doing well. She does not have any significant pain or complaints. She does not have any significant concerns at this time. Sheis going to follow-up after April 07 to discuss repeating the trigger point injections at that time should it be necessary. She will call us in the interim should she require anything from our services. CHERRI score: 20%. As part of providing excellent, safe, comprehensive care, the following was completed at our patient's visit: Reviewed patient's medication reconciliation. Reviewed screening for depressio (more content not included)...[facility] ToledoComment on above:Result Comment: Electronically Signed By: Salima Bassett PA-C\.br\Date and Time Signed: 02/24/25 14:16 [id number] NoteCardiovascular Medicine [facility] SUB[facility] Chief Complaint Patient presents with Follow-up Patient is here today for a 6 month follow up appointment. Patient states since she started the flecainide she is no longer feeling any palpitations/racing heart. Patient denies any cardiac complaints at this time Mild pulmonary hypertension Hypertension Valve Disorder Aortic valve disorder Hyperlipidemia Palpitations Rise A Keegan is a 69 y.o. female here for follow-up. 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 Dr. Sue started her on flecainide for her PVC's and sx's have greatly improved since then. She denies any palpitations since starting flecainide. Denies c/o CP, dyspnea, orthopnea, PND, LE edema, dizziness/LH, palpitations, syncope. Problem List[1] Medical History[2] Family History[3] Social History[4] Allergies[5] OBJECTIVE Visit Vitals BP 141/88 (BP Location: Right arm, Patient Position: Sitting) Pulse 78 Ht 1.702 m (5' 7 ) Wt 81.2 kg (179 lb) SpO2 99% BMI 28.04 kg/m??? Smoking Status Former BSA 1.96 m??? Medications: Current Medications[6] Physical Exam Vitals reviewed. Constitutional: Appearance: Normal appearance. She is normal weight. HENT: Head: Normocephalic and atraumatic. Right Ear: External ear normal. Left Ear: External ear normal. Eyes: Extraocular Movements: Extraocular movements intact. Conjunctiva/sclera: Conjunctivae normal. Pupils: Pupils are equal, round, and reactive to light. Neck: Vascular: No carotid bruit. Cardiovascular: Rate and Rhythm: Normal rate and regular rhythm. Pulses: Normal pulses. Heart sounds: Normal heart sounds. Pulmonary: Effort: Pulmonary effort is normal. Breath sounds: Normal breath sounds. Abdominal: General: Bowel sounds are normal. Palpations: Abdomen is soft. Musculoskeletal: Cervical back: Neck supple. Right lower leg: No edema. Left lower leg: No edema. Skin: General: Skin is warm and dry. Neurological: General: No focal deficit present. Mental Status: She is alert and oriented to person, place, and time. Psychiatric: Mood and Affect: Mood normal. Behavior: Behavior normal. Thought Content: Thought content normal. Judgment: Judgment normal. Labs: No results found for: EXTCMP , BMPR1A , CBCDIF , BNP , LASAP , RED No visits with results within 6 Month(s) from this visit. Latest known visit with results is: Admission on 07/31/2024, Discharged on 07/31/2024 Component Date Value Ventricular Rate 07/31/2024 72 Atrial Rate 07/31/2024 72 IL Interval 07/31/2024 152 QRS DURATION 07/31/2024 76 QT Interval 07/31/2024 380 QTC CALCULATION(BAZETT) 07/31/2024 416 P [place] 07/31/2024 42 R-[place] 07/31/2024 7 T Wave [place] 07/31/2024 39 06/19/2024 Cr 0.94, BUN 23, K 4.3, Na 136, AST 20, ALT 16, Testing/Procedures: Ankle-brachial indices 03/08/2023: Normal arterial evaluation of the lower extremities without hemodynamically Of bilateral lower extremities at rest. Echocardiogram 02/2023: Global left ventricular systolic function is hyperdynamic; visually estimated ejection fraction 65 to 70%. The right ventricle is normal in size and systolic function. Normal diastolic function. Moderate tricuspid regurgitation. Mildly elevated right ventricular systolic pressure. Echocardiogram 02/2024: Global left ventricular systolic function is normal; EF is 67%. No regional wall motion abnormalities. Grade 1 diastolic dysfunction Mildly thickened left ventricular garcia Mild right ventricular dilatation with normal right ventricular systolic function Mild pulmonary hypertension; RVSP 40 mmHg Moderate tricuspid regurgitation Mild aortic regurgitation Stress test 04/09/2024: Normal myocardial perfusion scan Normal exercise test Holter monitor 07/07/2024: Conclusion: 1. Normal sinus rhythm 2. Very frequent isolated ventricular ectopic beats totaling almost 17% of all QRS complexes. A few episodes of bigeminy or trigeminy was seen but no ventricular tachycardia 3. Rare isolated supraventricular ectopic beats 4. No significant tachyarrhythmias or bradycardia arrhythmias 5. Symptoms of dizziness, palpitation, shortness of breath appear to occur during her baseline rhythm of sinus with frequent PVCs Cardiovascular Laboratory Report 07/31/2024 FINAL IMPRESSIONS: Angiographically nonobstructive coronary arteries Normal global left ventricular systolic function by noninvasive imaging RECOMMENDATIONS: Aggressive cardiovascular risk factor modification Continue beta-blockade for symptomatic relief of palpitations Will refer the patient to Dr. Sue electrophysiology for further management of her high burden of ventricular ectopy; this may include antiarrhythmic therapy, an EP study +/- ablation as clinically indicated Follow-up with Dr. Newton in the next 6 months ASSESSM (more content not included)...[facility] 02-02-2025 History of Present illness Narrative* Vitaly Barboza, PT - 02/02/2025 3:00 PM EDT Images from the original note were not included. Time In: 3:00 PM Time Out: 3:40 PM Supervised Time: 30 min Total Time: 40 min Visit number: 3 History: Pt is a 69 yo female who presents with mid back pain. She had a trigger point injection last week and she has had no pain since. Prior to her injection she would have pain when walking longer distances and also describes a clicking sensation that she would have when she did not use her cane. She still has a clicking sensation when she ambulates but this no longer painful. She was sent to Dr. Fontenot by her PCP who then sent her to get the trigger injection and she states that they discussed doingan ablation after the completion of her physical therapy. Precautions: hx L hip replacement, repaired posterior tibial tendon Subjective: Denied pain upon arrival, just stiffness. States doing well after last session. States neck felt much better Imaging: MRI thoracic (12/2024)- degenerative changes Treatment: X 20 minutes of manual therapy consisting of PA joint mobilizations, STM to thoracic and cervical spine in prone; supine cervical distraction, PA mobilizations X 10 minutes of supervised therapeutic exercise per flowsheet X 10 minutes of MHP to cervical and thoracic spine in prone Assessment: Denied pain upon arrival, just stiffness. States doing well after last session. States neck felt much better. PT added ball up wall thoracic stretch today. Pt tolerated all exercises well. Continued with manual therapy to neck and upper back region. Most soreness at left T6-T7. Good tolerance to MT. Assess response at next session and progress as able. Pt wanted to wait to see if they want to schedule more sessions. Pt will benefit from skilled PT to address the above impairments for 1x/week for 4-6 weeks. documented in this encounterChristian [id number] History of Present illness Narrative* Precious Spivey, PT - 01/14/2025 8:30 AM EDT Images from the original note were not included. Physical Therapy Physical Therapy Evaluation Visit Patient Name: Robbie Allison Today's Date: 01/14/2025 Reason: Thoracic Spine Pain Visit number: 1 Subjective: Interim History: Pt is a 69 yo female who presents with mid back pain. She had a trigger point injection last week and she has had no pain since. Prior to her injection she would have pain when walking longer distances and also describes a clicking sensation that she would have when she did not use her cane. She still has a clicking sensation when she ambulates but this no longer painful. She was sent to Dr. Fontenot by her PCP who then sent her to get the trigger injection and she states that they discussed doingam ablation after the completion of her physical therapy. Pain: 0/10 since having the injection Imaging: MRI thoracic (12/2024)- degenerative changes Prior Level of Function: retired Precautions: hx L hip replacement, repaired posterior tibial tendon, Objective: THORACIC AROM: About 25-50% restricted globally- not affected by pain Joint play: Moderate restrictions throughout thoracic spine Palpation: TTP- inferior border of L scapular TTP throughout entire thoracic spine especially T6-T8 Function: Moderate thoracic kyphosis, forward rounded shoulders Treatment: Education: HEP education with demonstration, Educated on Eval Findings and POC Manual Therapy: Joint mobilization, Soft Tissue Mobilization, Myofascial Release, Myofascial Cupping, Dry Needling, and IASTM Therapeutic Exercise: Strength, Endurance, Flexibility, ROM, HEP, and Core Stability Therapeutic Activity: Exercises to improve dynamic activities, functional tasks, functional mobility to return to prior activity level Aquatic Therapy: as needed Neuromuscular re-education: Core Stabilization Modalities: Heat, Ice, and Electrical Stimulation Today: I.E.; x8' therex per exercise grid for thoracic flexibility and strengthening; edu on impairments, HEP, and POC Assessment: Outcome Measure: back index- 10% Goal 1: Patient will be 0% impaired according to back index to demonstrate improved function in 4-6weeks. Goal 2: Patient will improve thoracic ROM in all planes to improve general mobility in 4-6 weeks. Goal 3: Patient will demonstrate improved posture to reduce recurrence of thoracic pain in 4-6 weeks. Goal 4: Patient will be independent and compliant with HEP in 4-6 weeks. Pt will benefit from skilled PT to address the above impairments for 1x/week for 4-6 weeks. I hereby deem this POC medically necessary. Please sign below. ___ Date: documented in this encounterChristian [id number] NoteConsultation Note Patient: ROBBIE ALLISON Age: 69 years Sex: Female : 1955 Associated Diagnoses: None Author: Salima Bassett PA-C Procedure Joint aspiration/ injection procedure Procedure: Thoracic paraspinal TPI Diagnosis: Thoracic back pain and myalgia Anesthesia: local The patient was identified in the pre-op area. The procedure, including risks benefits and alternatives was discussed with the patient. The patient agreed to proceed. Informed consent was obtained and the site(s) marked. The patient was brought to the procedure room and placed in the seated position. Time out was performed. The upper back region was exposed, prepped, and draped in the usual sterile fashion. The multiple tender spots were marked, cleaned, and were injected with 4 mL of 0.5% bupivacaine and 40 mg of triamcinolone with negative aspiration through a 25G needle. The needle was removed and dressing applied.The patient was brought the post-procedure area in stable condition. Impression and Plan The patient was observed and monitored for an appropriate period of time and then discharged home. Post-procedure instructions were provided to the patient. No apparent complications.[facility] ToledoComment on above:Result Comment: Electronically Signed By: Salima Bassett PA-C\.br\Date and Time Signed: 01/06/25 14:51 [id number] NoteConsultation Note Patient: ROBBIE ALLISON Age: 69 years Sex: Female : 1955 Associated Diagnoses: None Author: Salima Bassett PA-C Basic Information Accompanied by: No one. Source of history: Self. Referral source: Thelma Fontenot MD Chief Complaint 01/06/2025 13:57 EDT back pain History of Present Illness patient is a 69-year-old female. She presents today as a new patient with complaints of left-sided thoracic back pain. It is just below her shoulder blade. She states that it started 3 months ago without any incident or trauma and unfortunate, had just progressively gotten worse. She states that she hears and feels a clicking type sensation in the area and then the pain presents itself. It can get up to a 6/10 on the visual analog scale. The more she is up and active and the more she twists andthe more it clicks the worst it gets. She has not yet pursued any conservative treatments for this. She had some imaging and saw the spine surgeon. He recommended her here to discuss trigger point injections versus x-ray guided injections. She just recently saw him so she is here today to discuss options. She is getting ready to move to the area. She has no radiculopathy. Left-sided thoracic spine pain only. It is a stabbing type however that overall is very bothersome to her. She has used [id number] medications without relief. Review of Systems Constitutional: No fever, No chills. Eye: No recent visual problem. Ear/Nose/Mouth/Throat: No decreased hearing. Respiratory: No shortness of breath, No cough. Cardiovascular: No chest pain. Gastrointestinal: No nausea, No vomiting. Genitourinary: No dysuria, No hematuria. Hematology/Lymphatics: No bruising tendency, No bleeding tendency. Musculoskeletal: Back pain. Integumentary: No rash, No pruritus. Neurologic: Alert and oriented X4, No numbness, No tingling. Psychiatric: No anxiety, No depression. Health Status Allergies: Allergic Reactions (Selected) Severe Cipro- Unknown. Dilaudid- Unknown and unknown. Sulfa drugs- Unknown. Severity Not Documented Penicillin- Unknown. Current medications: No qualifying data available Problem list: All Problems RUQ abdominal pain / SNOMED CT 864585748 / Confirmed Elevated liver enzymes / SNOMED CT 7622705362 / Confirmed Hypothyroidism / SNOMED CT 15498878 / Confirmed Chronic GERD / SNOMED CT 948451699 / Confirmed Hoarseness / SNOMED CT 899190974 / Confirmed Hair loss / SNOMED CT 078404285 / Confirmed Asthma / SNOMED CT 204740094 / Confirmed Arthralgia / SNOMED CT 01912844 / Confirmed Spondylosis of lumbar spine / SNOMED CT 820416471 / Confirmed Hx of colonic polyps / SNOMED CT 5676033969 / Confirmed Abdominal pain, generalized / SNOMED CT 205641513 / Confirmed Nausea / SNOMED CT 3657844202 / Confirmed Diarrhea / SNOMED CT 682566821 / Confirmed Early satiety / SNOMED CT 7138543683 / Confirmed Weight loss, unintentional / SNOMED CT 5324550527 / Confirmed Hiatal hernia / SNOMED CT 659907580 / Confirmed IBS (irritable bowel syndrome) / SNOMED CT 41177966 / Confirmed Histories Past Medical History: No active or resolved past medical history items have been selected or recorded. Family History: Entire family history is negative. Procedure history: EGD - Esophagogastroduodenoscopy (SNOMED CT 4726010795) on 08/04/2020 at 65 Years. Colonoscopy (SNOMED CT 849950829) on 08/04/2020 at 65 Years. Appendectomy (SNOMED CT 001408616). Comments: 07/21/2020 13:54 Megan Bains unknown when Total hysterectomy (SNOMED CT 765850528). Comments: 07/21/2020 13:55 Megan Bains unknown when Social History Social & Psychosocial Habits Tobacco 01/06/2025 Tobacco Use: Never (less than 100 in l Smokeless tobacco use: Never . Physical Examination Vital Signs (last 24 hrs) Last Charted Heart Rate Peripheral 82 bpm (JAN 06 13:57) SBP 131 mmHg (JAN 06 13:57) DBP 87 mmHg (JAN 06 13:57) Weight 83.3 kg (JAN 06 13:57) BMI 27.12 (JAN 06 13:57) General: Alert and oriented, No acute distress. Eye: Pupils are equal, round and reactive to light. HENT: Normocephalic, Normal hearing. Respiratory: Respirations are non-labored. Cardiovascular: No edema. Musculoskeletal Normal range of motion. Normal strength. 5/5 lower extremity strength 5/5 upper extremity strength Pain with compression of the thoracic facet joints on increased thoracic back pain facet loading but patient does have some tenderness to very superficial palpation of the thoracic paraspinal muscles.. Neurologic: Alert, Oriented. Cognition and Speech: Oriented, Speech clear and coherent. Psychiatric: Cooperative, Appropriate mood & affect. Integumentary: Warm, Dry, [place]. Review / Management Results review: No qualifying data available . Dr. Tarik Fontenot notes reviewed Thoracic MRI. 12/03/2024. Moderate to sever (more content not included)...[facility] InstituteComment on above:Result Comment: Electronically Signed By: Salima Bassett PA-C\.zaira\Date and Time Signed: 01/06/25 14:43 [id number] Evaluation note* Diagnosis Onset Date Resolution Status Admit Date GERD (gastroesophageal reflux disease) acuteJuly 2024 10:03amHypertensionacuteJuly 2024 10:03amHypothyroid acuteJuly 2024 10:03amSleep apneaacuteJuly 2024 10:03am [facility] Work Phone: 1([phone]) 249-144406-02-2025 NoteCardiac Electrophysiology Consultation Reason for Consult: PVC management Referring Information Systems Analyst/PCP: Dr Mirza Newton No ref. provider found HPI: Dear Mirza, Thank you again for your kind referral of Ms. Robbie Allison/Sheridan The purpose of completion, I will summarize her medical history. 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 According to her Apple Watch; she was noticed to have ectopy which is most likely consistent with occurrence of sinus rhythm and PVCs. Update on September 22, 2024: She comes in today for a follow-up appointment and reports that she is feeling remarkably well after she was started on flecainide and according to her the PVCs seem to have completely mitigated. She also denies any other competing cardiovascular symptoms and denies any symptoms of palpitations or dyspnea on exertion. Electrophysiology History: PVCs, symptomatic Past Medical History: Diagnosis Date Asthma GERD (gastroesophageal reflux disease) Hyperlipidemia Hypertension Hypothyroidism Pulmonary hypertension (CMS/HCC) PVC (premature ventricular contraction) RA (rheumatoid arthritis) (CMS/HCC) Past Surgical History: Procedure Laterality Date BREAST BIOPSY HYSTERECTOMY REPLACEMENT TOTAL HIP LATERAL POSITION TIBIA / FIBIA LENGTHENING Current Outpatient Medications Medication Sig Dispense Refill Advair Diskus 250-50 mcg/dose diskus inhaler amLODIPine (Norvasc) 5 mg tablet Take 1 tablet (5 mg) by mouth once daily as directed. 90 tablet 3 Atrovent HFA 17 mcg/actuation inhaler INHALE 2 PUFFS FOUR TIMES DAILY carisoprodol (Soma) 350 mg tablet 2 tablets 1 (one) time each day. carvedilol (Coreg) 25 mg tablet TAKE 1 TABLET BY MOUTH WITH FOOD TWICE DAILY colestipol (Colestid) 1 gram tablet Take 1 g by mouth after breakfast and after evening meal. Take at least 1 hour after or 4 hours before other medications. desvenlafaxine (Pristiq) 50 mg 24 hr tablet TAKE 1 TABLET BY MOUTH ONCE DAILY FOR 90 DAYS diclofenac (Voltaren) 75 mg EC tablet estradiol (Estrace) 0.5 mg tablet 1 tablet Orally Once a day flecainide (Tambocor) 50 mg tablet Take 1 tablet (50 mg) by mouth in the morning for 360 doses. 90 tablet 3 lisinopril 40 mg tablet Take 40 mg by mouth in the morning. magnesium oxide 300 mg magnesium tablet Take by mouth. omeprazole (PriLOSEC) [address] capsule oxaprozin (Daypro) 600 mg tablet Take 600 mg by mouth in the morning and at bedtime. simvastatin (Zocor) 20 mg tablet 1 tablet in the evening Orally Once a day Synthroid 50 mcg tablet No current facility-administered medications for this visit. Physical Examination: BP 136/90 (BP Location: Right arm, Patient Position: Standing, BP Cuff Size: Adult long) Pulse 68 Ht 1.702 m (5' 7 ) Wt 81.6 kg (180 lb) BMI 28.19 kg/m??? Gen: No acute distress Neck: No LAD, No JVD elevation CVS: S1, S2 normal, no rubs, no murmurs Pulm: CTABL Abdomen: NTND Neuro: AAO x 3 Extremity: No edema Psych: Mood and affect is normal .labs No results found for: WBC , HGB , HCT , MCV , PLT No results found for: GLUCOSE , CALCIUM , NA , K , CO2 , CL , BUN , CREATININE EKG: Encounter Date: 07/31/24 Electrocardiogram, 12-lead Result Value Ventricular Rate 72 Atrial Rate 72 [place] Interval 152 QRS DURATION 76 QT Interval 380 QTC CALCULATION(BAZETT) 416 P [place] 42 R-[place] 7 T Wave [place] 39 Impression Sinus rhythm with occasional Premature ventricular complexes Otherwise normal ECG No previous ECGs available Confirmed by Celestina BARAJASNICOLE ([id number]) on 07/31/2024 9:46:36 AM I personally reviewed this EKG and assessed the findings myself No echocardiogram results found for the past 12 months No echocardiogram results found for the past 14 days I have personally reviewed the echocardiogram images myself Assessment and Plan: Robbie Allison is a very pleasant 67-year-old female with history of hypothyroidism, rheumatoid arthritis was kindly referred to me for consideration of management of PVCs. She has had PVC burden as detected on Apple Watch as well as on the monitor she was noticed to have about 17% burden of PVCs. Then I discussed medical therapy and based on her young age and absence of structural heart disease she will be suitable for Flecainide. After deliberating both of these options, she wants to go ahead with flecainide and low-dose therapy which has published data for PVC induced cardiomyopathy as well as frequent PVC patients therefore I had started her on Flecainide 50 mg every day. Again on September 22, 2024 visit, I discussed that given she has responded very well to flecainide in terms of her symptoms as well as mitigation of PVC burden we will continue that without any changes. For the purpose of completion, I did discuss catheter ablation includin (more content not included)...[facility]04-24-2025 NoteCardiac Electrophysiology Consultation Reason for Consult: PVC management Referring Information Systems Analyst/PCP: Dr Mirza Newton No ref. provider found HPI: Dear Mirza, Thank you for your kind referral of Ms. Robbie Allison/Sheridan. The purpose of completion, I will summarize her medical history. 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 According to her Apple Watch; she was noticed to have ectopy which is most likely consistent with occurrence of sinus rhythm and PVCs. Electrophysiology History: PVCs, symptomatic Past Medical History: Diagnosis Date Asthma GERD (gastroesophageal reflux disease) Hyperlipidemia Hypertension Hypothyroidism Pulmonary hypertension (CMS/HCC) PVC (premature ventricular contraction) RA (rheumatoid arthritis) (CMS/HCC) Past Surgical History: Procedure Laterality Date BREAST BIOPSY HYSTERECTOMY REPLACEMENT TOTAL HIP LATERAL POSITION TIBIA / FIBIA LENGTHENING Current Outpatient Medications Medication Sig Dispense Refill Advair Diskus 250-50 mcg/dose diskus inhaler amLODIPine (Norvasc) 5 mg tablet Take 1 tablet (5 mg) by mouth once daily as directed. 90 tablet 3 Atrovent HFA 17 mcg/actuation inhaler INHALE 2 PUFFS FOUR TIMES DAILY carisoprodol (Soma) 350 mg tablet 2 tablets 1 (one) time each day. carvedilol (Coreg) 25 mg tablet TAKE 1 TABLET BY MOUTH WITH FOOD TWICE DAILY colestipol (Colestid) 1 gram tablet Take 1 g by mouth after breakfast and after evening meal. Take at least 1 hour after or 4 hours before other medications. desvenlafaxine (Pristiq) 50 mg 24 hr tablet TAKE 1 TABLET BY MOUTH ONCE DAILY FOR 90 DAYS estradiol (Estrace) 0.5 mg tablet 1 tablet Orally Once a day lisinopril 40 mg tablet Take 40 mg by mouth in the morning. magnesium oxide 300 mg magnesium tablet Take by mouth. omeprazole (PriLOSEC) [address] capsule oxaprozin (Daypro) 600 mg tablet Take 600 mg by mouth in the morning and at bedtime. simvastatin (Zocor) 20 mg tablet 1 tablet in the evening Orally Once a day Synthroid 50 mcg tablet diclofenac (Voltaren) 75 mg EC tablet No current facility-administered medications for this visit. Physical Examination: BP 150/78 (BP Location: Left arm, Patient Position: Sitting, BP Cuff Size: Adult) Pulse 72 Ht 1.702 m (5' 7 ) Wt 83.5 kg (184 lb) BMI 28.82 kg/m??? Gen: No acute distress Neck: No LAD, No JVD elevation CVS: S1, S2 normal, no rubs, no murmurs Pulm: CTABL Abdomen: NTND Neuro: AAO x 3 Extremity: No edema Psych: Mood and affect is normal .labs No results found for: WBC , HGB , HCT , MCV , PLT No results found for: GLUCOSE , CALCIUM , NA , K , CO2 , CL , BUN , CREATININE EKG: Encounter Date: 07/31/24 Electrocardiogram, 12-lead Result Value Ventricular Rate 72 Atrial Rate 72 IL Interval 152 QRS DURATION 76 QT Interval 380 QTC CALCULATION(BAZETT) 416 P [place] 42 R-[place] 7 T Wave [place] 39 Impression Sinus rhythm with occasional Premature ventricular complexes Otherwise normal ECG No previous ECGs available Confirmed by Celestina BARAJASNICOLE ([id number]) on 07/31/2024 9:46:36 AM I personally reviewed this EKG and assessed the findings myself No echocardiogram results found for the past 12 months No echocardiogram results found for the past 14 days I have personally reviewed the echocardiogram images myself Assessment and Plan: Robbie Allison is a very pleasant 67-year-old female with history of hypothyroidism, rheumatoid arthritis was kindly referred to me for consideration of management of PVCs. She has had PVC burden as detected on Apple Watch as well as on the monitor she was noticed to have about 17% burden of PVCs. On the office visit today, I discussed 2 options with her 1 is medical therapy as well as catheter ablation. In regard to catheter ablation I discussed the nature of the procedure as well as potential success rate along with potential risk of complications that include but are not limited to vascular complications, bleeding issues, risk of stroke, risk of periprocedural VA including the risk of . I cited the success rate to be about 75 to 80% with the procedure complication rate to be about 2 to 3%. Then I discussed medical therapy and based on her young age and absence of structural heart disease she will be suitable for Flecainide. After deliberating both of these options, she wants to go ahead with flecainide and low-dose therapy which has published data for PVC induced cardiomyopathy as well as frequent PVC patients therefore we will start her on Flecainide 50 mg daily. Plan: - Will start Flecainide 50 mg every day. - Follow up in 3 months-6 months and event monitor x 2 weeks prior to that As always, it is a pleasure to partake in the shared care of our patients. Lise Sue MD, ScM, Msc C (more content not included)...[facility]03-24-2025 [facility] Chief Complaint: Follow up [facility] and 48 hour holter monitor. Patient states she went to the ER for palpatations and dizziness. Patient states the palpatation are a daily. Patient states she stopped taking her Lisinopril due to it making her blood pressure to low. Patient states she has chest pressure that comes and goes. Denies, Swelling in legs. HPI: Robbie Allison is a 67 y.o. female with past [...] have foot surgery in the near future. UPDATE 03/24/2024 Her shortness of breath has improved on inhaler therapy but still persists Denies chest pain No orthopnea, no paroxysmal tunnel dyspnea, no lower extremity edema UPDATE 07/14/2024 She had episodes of significant palpitations associated with chest pressure, and significant lightheadedness. She was seen in the emergency room. She was given a Holter monitor which revealed a significant burden of PVCs. She still has chest pressure with exertion. It is different than her shortness of breath associated with her asthma. Cardiology ROS: Review of Systems Cardiovascular: Positive for chest pain (describes as a pressure that comes and goes), dyspnea on exertion (less frequent) and palpitations (that occure everyday). Neurological: Positive for numbness. All other systems reviewed and are negative. Past Medical History She has a past medical history of Asthma, GERD (gastroesophageal reflux disease), Hyperlipidemia, Hypertension, Hypothyroidism, and RA (rheumatoid arthritis) ([facility]). Surgical History She has a past surgical history that includes Replacement total hip lateral position; Tibia / fibia lengthening; Hysterectomy; and Breast biopsy. Social History She reports that she has quit smoking. Her smoking use included cigarettes. She has never used smokeless tobacco. She reports current alcohol use. No history on file for drug use. Family History Family History Problem Relation Name Age of Onset Hypertension Mother Atrial fibrillation Sister Allergies Fentanyl, Hydromorphone, Penicillins, and Sulfanilamide Medications Current Outpatient Medications: Advair Diskus 250-50 mcg/dose diskus inhaler, , Disp: , Rfl: amLODIPine (Norvasc) 5 mg tablet, Take 1 tablet (5 mg) by mouth once daily as directed., Disp: 90 tablet, Rfl: 3 Atrovent HFA 17 mcg/actuation inhaler, INHALE 2 PUFFS FOUR TIMES DAILY, Disp: , Rfl: carisoprodol (Soma) 350 mg tablet, 2 tablets 1 (one) time each day., Disp: , Rfl: carvedilol (Coreg) 25 mg [...] Take 40 mg by mouth in the morning., Disp: , Rfl: omeprazole (PriLOSEC) [address] capsule, , Disp: , Rfl: oxaprozin (Daypro) 600 mg tablet, Take 600 mg by mouth in the morning and at bedtime., Disp: , Rfl: simvastatin (Zocor) 20 mg tablet, 1 tablet in the evening Orally Once a day, Disp: , Rfl: Synthroid 50 mcg tablet, , Disp: , Rfl: Last Recorded Vitals BP (!) 138/99 (BP Location: Right arm, Patient Position: Sitting) Pulse 81 Ht 1.702 m (5' 7 ) Wt 81.6 kg (180 lb) SpO2 99% BMI 28.19 kg/m??? Physical Examination: GENERAL: alert and oriented [...] equal and symmetric in bilateral upper and l (more content not included)...[facility]02-06-2025 Evaluation note* Diagnosis Onset Date Resolution Status Admit Date Bile salt-induced diarrhea acuteFebruary 2024 2:00pm [facility] Work Phone: 1(490) 395-645412-02-2024 NoteB[facility] Note Chief Complaint: Patient here for 1 year follow up valve disorder, hypertension, and dyslipidemia. Had echo last month. No recent labs. Says her [place] and palpitations are occurring less frequently. Denies chest pain. HPI: Robbie Allison is a 67 y.o. female with past [...] have foot surgery in the near future. UPDATE 03/24/2024 Her shortness of breath has improved on inhaler therapy but still persists Denies chest pain No orthopnea, no paroxysmal tunnel dyspnea, no lower extremity edema Cardiology ROS: Review of Systems Cardiovascular: Positive for dyspnea on exertion (less frequent) and palpitations (less frequent). Neurological: Positive for numbness. All other systems reviewed and are negative. Past Medical History She has a past medical history of Asthma, GERD (gastroesophageal reflux disease), Hyperlipidemia, Hypertension, Hypothyroidism, and RA (rheumatoid arthritis) ([facility]). Surgical History She has a past surgical history that includes Replacement total hip lateral position; Tibia / fibia lengthening; Hysterectomy; and Breast biopsy. Social History She reports that she has quit smoking. Her smoking use included cigarettes. She has never used smokeless tobacco. She reports current alcohol use. No history on file for drug use. Family History Family History Problem Relation Name Age of Onset Hypertension Mother Atrial fibrillation Sister Allergies Fentanyl, Hydromorphone, Penicillins, and Sulfanilamide Medications Current Outpatient Medications: Advair Diskus 250-50 mcg/dose diskus inhaler, , Disp: , Rfl: amLODIPine (Norvasc) 5 mg tablet, Take 1 tablet (5 mg) by mouth once daily as directed., Disp: 90 tablet, Rfl: 3 carisoprodol (Soma) 350 mg tablet, 2 tablets 1 (one) time each day., Disp: , Rfl: carvedilol (Coreg) 25 mg [...] Take 40 mg by mouth in the morning., Disp: , Rfl: omeprazole (PriLOSEC) [address] capsule, , Disp: , Rfl: simvastatin (Zocor) 20 mg tablet, 1 tablet in the evening Orally Once a day, Disp: , Rfl: Synthroid 50 mcg tablet, , Disp: , Rfl: Last Recorded Vitals BP 124/86 (BP Location: Left arm, Patient Position: Sitting) Pulse 85 Ht 1.702 m (5' 7 ) Wt 81.2 kg (179 lb) SpO2 97% BMI 28.04 kg/m??? Physical Examination: GENERAL: alert and oriented [...] regurgitation. Mildly elevated right ventricular systolic pressure. Echocardiogram 02/2024: Global left ventricular systolic function is normal; EF is 67%. No regional wall motion abnormalities. Grade 1 diastolic dysfunction Mildly thickened left ventricular gacria (more content not included)...[facility]09-26-2024 Procedure [facility]09-26-2024 Procedure [facility]08-23-2022 History of Present illness [id number] yo with history of allergy and asthma. Symptoms are improved on Advair 250 BID with rare albuterol use. She has grass, tree and ragweed as well as pet allergy on immunocap 12/13/21.[facility] [address] Work Phone: 1(348) 168-414807-26-2022 NotePROCEDURE: XR ANKLE RT MIN 3 VIEWS HISTORY: [...] Electronically authenticated by: ELVA MELISSA Date: 2021-11-15 18:44[facility]06-29-2022 NotePROCEDURE: XR FOOT RT MIN 3 VIEWS COMPARISON: None. HISTORY: Pain [...] first metatarsal-phalangeal joint Electronically authenticated by: SAE NICE Date: 2021-10-19 07:23[facility]06-01-2022 History of Present illness Narrative* Pt here to discuss allergy symptoms. Patient has seen an oxygen system tester in the past, last tested in 2010. Patient states seasonal and environmental allergies. Patient t is on Zyrtec-D and Benadryl as needed. Takes Zyrtec D in the morning, last this a.m. * She had a shot in September for her allergy which she thinks was a steroid. * She did have her Pneumovax a couple months ago. * Patient did see an oxygen system tester in early 2000. Was on shots 2-3 yrs. She felt it helped. * Never diagnosed with asthma * Smokes occasionally. She did smoke regular in the past. * Uses daily albuterol. * She is worried about dog allergy. She has one dog. * Patient is retired as a nurse. * She worked at [employer]. * Moved into a new home a few years ago. Had Covid in 2019, and still feels she has some residula taste and smell issues. [place] [id number] Work Phone: [phone] Evaluation note* Encounter Date Diagnosis Assessment Notes Treatment Notes Treatment Clinical Notes Jun, History of arthroplasty of left hip (ICD-10 - Z98.890) Rise presents today 6 months s/p left total hip arthroplasty. They are doing well. Physical exam isbenign with a healthy appearing wound. She is [...] tolerated. Call with any questions or concerns. [facility] Other 11-01-2021 Evaluation note* Encounter Date Diagnosis [...] is at. I will see them back atthe 6-month anniversary from their surgery for reevaluation. We will repeat AP pelvis at that time Patient doing well. Finish physical therapy. Maintain hip precautions Feb,OtherPatient has flat foot deformity on the right. We discussed referral to Dr Beltran in the future if she develops pain or further deformity [facility] Other 10-18-2021 Evaluation note* Encounter Date Diagnosis Assessment Notes Treatment Notes Treatment Clinical Notes Jan, Primary osteoarthritis of left h ip (ICD-10 - M16.12) [facility] Other 10-04-2021 Evaluation note* Encounter Date Diagnosis [...] physical therapy exercises and MARK precautions. Continue withmedications as prescribed. A refill for Cyclobenzaprine and Oxycodone were given today along with directions of use. Continue with use of cane as needed. Instructed patient to call with any questionsor concerns. [facility] Other 09-17-2021 Evaluation note* Encounter Date Diagnosis Assessment Notes Treatment Notes Treatment Clinical Notes Dec, Left hip pain (ICD-10 - M25.552) 17 Dec,1Primary osteoarthritis of left hip (ICD-10 - M16.12)Robbie presents with left hip DJD. At this juncture we have discussed the findings and diagnosis as well as reviewed appropriate imaging and performed interpretation of related testing and examination.Prior medical notes from Dr. Ambriz and history [...] The patient recognizes and understands our options andgoals and we will move forward with our [...] The risks of surgical intervention were given. Pre- operative optimization will be done prior to surgical procedure to limit jyoti- operative risks. I have discussed theplanned procedure being a total hip arthroplasty via posterior approach, how and who performs the procedure, as well as the personnel involved. Cardiovascular, pulmonary, and other life- threatening episodes can occur during surgery although there [...] blood transfusion. Possibility of, and need for, futurebracing or DME use, physical or occupational therapy, mental therapy, rehabilitation, pain management and need for secondary procedures was discussed. There is possibility of component malfunction orwear and tear requiring future procedures. I have warned against smoking and the use of tobacco products due to the risks associated with them, in particular, poor healing. Obtaining or maintaining ahealthy BMI was discussed. I have advised against the peanut sorter use of narcotic pain medication. I have advised to follow all post-operative instructions in order to obtain the best outcome. Informedconsent has been verbally affirmed and signed as [...] for proceeding with total hip replacement. The patientis experiencing severe disabling hip pain which is affecting daily life and ability to ambulate. Conservative means of treatment including NSAIDS and other medication as well as activity modificationand gentle exercise have not been effective in relieving symptoms or are not indicated at this time. It is now reasonable to proceed with total hip replacement. Risks and benefits of procedure explained to patient; patient verbalizes understanding. Dec,re-op examination (ICD-10 - Z01.818) Dec,Tobacco abuse (ICD-10 - Z72.0)Patient has a tobacco use disorder we have discussed this today. We have discussed complications caused by tobacco use as well as increased risk with tobacco use. Tobacco cessation program at [facility] has been recommended and offered. This discussion was limited to 5 minutes. [facility] Other Evaluation noteNo InformationNortBelmont Behavioral Hospital [facility] Other Evaluation noteNo assessment information available [facility] Work Phone: Evaluation note* Diagnosis Onset Date Resolution Status History of total left hip arthroplasty acuteOsteoarthritis of left hipacuteTrochanteric bursitis, left hipacute [facility] Work Phone: Evaluation note* Diagnosis Onset Date Resolution Status History of total left hip arthroplasty acuteOsteoarthritis of left hipacuteTrochanteric bursitis, left hipacuteHistory of total left hip arthroplastyacuteOsteoarthritis of left hipacuteTrochanteric bursitis, left hipacute [facility] Work Phone: Evaluation note* Diagnosis Onset Date Resolution Status History of total left hip arthroplasty acuteOsteoarthritis of left hipacuteTrochanteric bursitis, left hipacuteHistory of total left hip arthroplastyacuteOsteoarthritis of left hipacuteTrochanteric bursitis, left hipacuteGeneralized anxiety disorderacuteGERD (gastroesophageal reflux disease)acuteHypertensionacuteHypothyroidacuteSleep apneaacute [facility] Work Phone: Evaluation note* Diagnosis Onset Date Resolution Status History of total left hip arthroplasty acuteOsteoarthritis of left hipacuteTrochanteric bursitis, left hipacuteHistory of total left hip arthroplastyacuteOsteoarthritis of left hipacuteTrochanteric bursitis, left hipacuteGeneralized anxiety disorderacuteGERD (gastroesophageal reflux disease)acuteHypertensionacuteHypothyroidacuteSleep apneaacuteFinger mass, rightacuteHistory of total left hip arthroplastyacuteOsteoarthritis of left hipacutePrimary osteoarthritis, right handacuteTrochanteric bursitis, left hipacute [facility] Work Phone: Evaluation note* Diagnosis Onset Date Resolution Status Finger mass, right acuteHistory of total left hip arthroplastyacuteOsteoarthritis of left hipacute Primary osteoarthritis, right handacuteTrochanteric bursitis, left hipacuteGERD (gastroesophageal reflux disease)acuteHypertensionacuteHypothyroidacuteSleep apneaacute [facility] Work Phone: Evaluation note* Diagnosis Onset Date Resolution Status Finger mass, right acuteHistory of total left hip arthroplastyacuteOsteoarthritis of left hipacute Primary osteoarthritis, right handacuteTrochanteric bursitis, left hipacuteGERD (gastroesophageal reflux disease)acuteHypertensionacuteHypothyroidacuteSleep apneaacuteChronic diarrheaacute [facility] Work Phone: Evaluation note* Diagnosis Onset Date Resolution Status GERD (gastroesophageal reflux disease) acuteHypertensionacuteHypothyroidacuteSleep apneaacuteChronic diarrheaacute [facility] Work Phone: Evaluation note* Diagnosis Onset Date Resolution Status Admit Date Chronic diarrhea acuteFebruary 2024 2:00pm [facility] Work Phone: Evaluation note* Diagnosis Tachycardia- Primary Tachycardia, unspecified [facility] Vaginal atrophy Postmenopausal atrophic vaginitis Encounter for screening mammogram for breast cancer Postmenopausal HRT (hormone replacement therapy) Need for prophylactic hormone replacement therapy (postmenopausal) documented in this encounter [facility] HealthcareEvaluation note* Diagnosis Onset Date Resolution Status Admit Date GERD (gastroesophageal reflux disease) acuteJuly 2024 10:03amHypertensionacuteJuly 2024 10:03amHypothyroid acuteJuly 2024 10:03amSleep apneaacuteJuly 2024 10:03am [facility] Work Phone: Evaluation note* Diagnosis Thoracic spondylosis- Primary documented in this encounter [facility] HealthcareEvaluation note* Diagnosis Thoracic spondylosis- Primary documented in this encounter [facility] HealthcareEvaluation note* Diagnosis Thoracic spondylosis- Primary documented in this encounter [facility] HealthcareHistory and physical note Author Gisselle Powell [facility] January 17, 2024 9:35amNote Date/TimeSept2023 9:35am[place] [address] Gastroenterology H&P Signed Patient: Robbie Allison MR#: [id number] : 1955 Acct:[id number] Age/Sex: 68 / F Adm Date: 4 Loc: Room: Type: [facility] Attending Dr: Gisselle Powell DO Copies to: Gisselle Powell, DO Rio Ambriz MD~ Date of Service: 01/17/2024 HISTORY & PHYSICAL: Patient's history with special attention to the cardiovascular, pulmonary systems and the current problem was reviewed with the patient immediately prior to the procedure. Present medications and doses reviewed in the EMR. Allergies and pertinent laboratory tests were also re viewedat this time in the EMR. The physical examination, as below, was then performed. Indication, assessment and HPI: 68 y/o F who presents for EGD/colonoscopy for diarrhea and positiveceliac serology. Her last colonoscopy was 4 years. [...] signed by Gisselle Powell DO> 01/17/24 0935 [facility] Work Phone: History general Narrative - Reported* Type Description Date Medical History htn Medical Historyhigh blood pressureMedical HistoryasthmaMedical History HypothyroidismMedical HistoryArthritisSurgical HistoryHYSTERECTOMYSurgical HistoryAPENDIXSurgical HistorycolonoscopySurgical Historyright post tibal repair Surgical Historypelvic organ prolapse repairSurgical Historyright knee biopsy Surgical Historybreast biopsySurgical Historyleft total hip arthroplasty01/11/21 [facility] Other History general Narrative - Reported* Type Description Date Medical History htn Medical Historyhigh blood pressureMedical HistoryasthmaMedical History HypothyroidismMedical HistoryArthritisSurgical HistoryHYSTERECTOMYSurgical HistoryAPPENDIXSurgical HistorycolonoscopySurgical Historyright post tibal repairSurgical Historypelvic organ prolapse repairSurgical Historyright knee biopsySurgical Historybreast biopsySurgical Historyleft total hip arthroplasty 01/11/21Surgical HistoryRight Foot/[id number] [facility] Other History of Present illness Narrative* Haritha Khan DO - 10/16/2024 2:00 PM EDT Images from the original note were not included. Haritha Khan D.O. Obstetrics and Gynecology Patient: Robbie Allison : 1955 (69 y.o.) Yearly [facility]ness Exam Date: 10/16/2024 Reason for Visit - Chief Complaint Patient presents with Gynecologic Exam Denies concerns. Denies bowel/bladder/breast concerns. Pt just had mammogram Sunday at [place]. Denies vaginal bleeding/spotting. Visit Vitals BP 112/68 Wt 184 lb BMI 29.70 kg/m Smoking Status Former BSA 1.97 m Allergies Allergen Reactions Fentanyl Unknown Hydromorphone Unknown Penicillins Sulfanilamide Unknown History of Present Illness, Associated Treatments and Results - OB History Para Term AB Living 1 0 0 0 0 0 SAB IAB Ectopic Multiple Live Births 0 0 0 0 1 # Outcome Date GA Lbr Morales/2nd Weight Sex Type Anes PTL Lv 1 Obstetric Comments Last pap smear date 10/04/23 wnl Last mammogram date 10/09/22 TARIQ Nelson 10/09/22 @ [place] Review of Systems - General: Chills denies. Allergy/Immunology: Rash Denies. ENT: Denies Difficulty swallowing. Endocrine: Denies Cold intolerance denies. Heat intolerance denied. Respiratory: Denies Chest pain denies. Shortness of breath denies. Breast: Denies Bloody nipple discharge denies. Breast lump denies. Cardiovascular: Denies Chest pain. Gastrointestinal: Abdominal pain denies. Blood in stool denies. Hematology: Easy bruising denies. Prolonged bleeding denies. Women Only: Breast lump denies. Vaginal bleeding between periods is denied. Vaginal discharge/itching denied. Genitourinary: Blood in urine denies. Painful urination denies. Incontinence denies. Skin: Hair changes. Neurologic: Seizures denied. Stroke denies. Psychiatric: Anxiety denies. Depressed mood denies. Medication Documentation Review Audit Reviewed by Isi Clinton MA (Balloon [employer]eller) on 10/16/24 at 1347 Medication Order Taking? Sig Documenting Provider Last Dose Status acyclovir (Zovirax) 800 MG tablet [id number] Take 1 tablet (800 mg) by mouth once per day Haritha Khan DO Active carisoprodol (Soma) 350 MG tablet [id number] take 1 tablet (350MG) by ORAL route 2 times every day and at bedtime Oral Historical Provider, Active Discontinued 10/16/24 1346 Cetirizine HCl (ZyrTEC ALLERGY) 10 MG capsule [id number] ArceliayrTEC Historical Provider, Active diclofenac-miSOPROStol (Arthrotec 75) 75-0.2 MG EC tablet [id number] Take 1 tablet by mouth in the morning and 1 tablet before bedtime. Historical Provider, Active enalapril (Vasotec) 2.5 MG tablet [id number] Take 2.5 mg by mouth Daily Active estradiol (Estrace) 0.5 MG tablet [id number] TAKE 1 TABLET ONCE DAILY Haritha Khan DO Active flecainide (Tambocor) 50 MG tablet [id number] Yes 1 (one) time each day at the same time Haritha Khan DO Active fluticasone-salmeterol (Advair Diskus) 100-50 MCG/DOSE diskus inhaler [id number] inhale 1 by Nasal route 2 times every day Inhalation Historical ProviderMD Active lansoprazole (Prevacid) [address] capsule [id number] take 1 capsule (30MG) by ORAL route every 2 days before a meal Oral Historical Provider, Active levothyroxine (Synthroid) 100 MCG tablet [id number] take 1 tablet by ORAL route every day Oral Historical ProviderMD Active lisinopril 10 MG tablet [id number] 1 tablet Orally Once a day Historical ProviderMD Active simvastatin (Zocor) 20 MG tablet [id number] 1 tablet in the evening Orally Once a day Historical Provider, Active Past Medical History: Diagnosis Date GERD (gastroesophageal reflux disease) Hx of abnormal cervical Pap smear Hypertension Hypothyroidism Past Surgical History: Procedure Laterality Date APPENDECTOMY BREAST BIOPSY Left 02/11/2015 benign CARDIAC CATHETERIZATION 2024 COLONOSCOPY 07/2020 COLPOPEXY ENTEROCELE REPAIR w/ mesh FOOT SPLIT TRANSFER OF THE POSTERIOR TIBIALIS TENDON PROCEDURE Right 07/26/2015 HYSTERECTOMY LAVH/BSO KNEE ARTHROSCOPY W/ MENISCECTOMY Right 05/04/2014 chondromalacia of patella PARTIAL HIP ARTHROPLASTY Left 12/2020 Family History Problem Relation Name Age of Onset Hypertension Father No Known Problems Sister No Known Problems Brother No Known Problems Daughter Physical Exam - General appearance, mentation, extraocular movements, facial strength and movement, hearing, upper and lower extremity strength and tone, sensation to gross testing, coordination, and gait are normalor at baseline unless noted below. General Examination: GENERAL APPEARANCE: alert oriented well developed, well nourished. HEAD: normocephalic atraumatic. EYES: sclera anicteric. EARS: no obvious hearing deficit. SKIN: warm and dry. HEART: regular rate and rhythm. LUNGS: clear to auscultation bilaterally. CHEST: axillary nodes grossly normal. BREASTS: no masses palpable bilaterally, normal nipples bilaterally. ABDOMEN: soft, nontender, nondistended, no masses palpable. BACK: no costovertebral angle tenderness, no obvious scoliosis/kyphosis. FEMALE GENITOURINARY: atrophic vaginal mucosa, cervix/uterus surgically absent EXTREMITIES: no edema. NEUROLOGIC: alert and oriented. PSYCH: cooperative with exam. Diagnoses and all orders for this visit: Vaginal atrophy Encounter for screening mammogram for breast cancer - Bilateral screening mammogram with tomosynthesis; Future Postmenopausal HRT (hormone replacement therapy) - estradiol (Estrace) 0.5 MG tablet; TAKE 1 TABLET ONCE DAILY Pelvic and breast exam completed. Findings of today's exam discussed with the patient. Continue MSBE. Ca/Vit D recommendations reviewed with the patient. The patient is to contact the office with anychanges to her gynecological condition. The patient is to return in 1 year or as needed ICD-10-CM 1. Vaginal atrophy N95.2 2. Encounter for screening mammogram for breast cancer Z12.31 Bilateral screening mammogram with tomosynthesis 3. Postmenopausal HRT (hormone replacement therapy) Z79.890 estradiol (Estrace) 0.5 MG tablet [facility] Additional Instructions DISCHARGE INSTRUCTIONS FOR [...] NOT operate machinery such as power tools, [employer] mowers, [employer], sewing machines, etc. for 24 hours. - [...] NOT operate machinery such as power tools, lawn mowers, snow blowers, sewing machines, etc. for [...] -Follow up with PCP. - Office number [phone]. [facility] Work Phone: Hospital Discharge instructionsAmbulatory Orders* Referral to Pain Management Location: None Selected [facility] Work Phone: Rendqj for referral (narrative)No reason for referral information availableSycamore Medical Center Work Phone: reason for visit Narrative* Rehabilitation - Outpatient (Routine) - AuthorizedSpecialtyDiagnoses / ProceduresReferred By ContactReferred To ContactPhysical Therapy Diagnoses Pain in thoracic spine Spondylosis without myelopathy or radiculopathy, thoracic region Procedures [place] PHYS THERAPY EVALUATION Salima Bassett MD [address] [place], [place] [address] [place] [address] Phone: tel: fax: Precious Spivey, PT Referral IDStatusReasonStart DateExpiration DateVisits RequestedVisits [id number] [facility] HealthcareReason for visit Narrative* Rehabilitation - Outpatient (Routine) - AuthorizedSpecialtyDiagnoses / ProceduresReferred By ContactReferred To ContactPhysical Therapy Diagnoses Pain in thoracic spine Spondylosis without myelopathy or radiculopathy, thoracic region Procedures [place] PHYS THERAPY EVALUATION aSlima Bassett MD [address] [facility] [place] [address] Phone: tel: fax: Vitaly Barboza, PT [address] [place] [address] Phone: tel: fax: Referral IDStatusReasonStart DateExpiration DateVisits RequestedVisits [id number]/ [facility] Healthcare Summary Purpose Family History No Family History Records FoundUnknown Family Member Name Dates Details Family history of arthritis: Mother(V17.7, Z82.61) Status:ActiveFamily history of hypertension: Mother(V17.49, Z82.49) Status:ActiveDeceased: Father Status:Active Relationship Condition Age at Onset Recorded Date/T refugio father Hypertension Unknown Kidney disorderUnknownNot SpecifiedArthritisUnknownHypertensionUnknownsister History of hip replacementUnknownUnknown Family Member Name Dates Details Family history of arthritis: Mother(V17.7, Z82.61) Status:ActiveFamily history of hypertension: Mother(V17.49, Z82.49) Status:ActiveDeceased: Father Status:Active Relationship Condition Age at Onset Recorded Date/T erfugio father Hypertension Unknown Kidney disorderUnknownNot SpecifiedArthritisUnknownHypertensionUnknownsister History of hip replacementUnknownfatherDeceasedUnknownNot SpecifiedDeceased Unknown Relationship Condition Age at Onset Recorded Date/T refugio father Hypertension Unknown Kidney disorderUnknownmotherArthritisUnknownHypertensionUnknownsisterHistory of hip replacementUnknownfatherDeceasedUnknownmotherDeceasedUnknown Advance Directives No Advanced Directives Records Found Advance Directive Response Recorded Date/ Time Advance Directives No December 01, 2020 10:50am Advance Directive Response Recorded Date/ Time Advance Directives No May 16, 2023 7:15pm Advance Directive Response Recorded Date/ Time Advance Directives No December 01, 2020 9:50am Advance Directive Response Recorded Date/ Time Advance Directives No December 18, 2024 5:16pm Chief Complaint New patient here to discuss allergies, referred by PCP, Dr. [place] Ambriz[place] and allergies Chief Complaint and Reason for Visit Chief Complaint Right PTTD M76.821 Chief Complaint Z96.642 - Presence o f left artificial hip joint op sp lt hip painReason for VisitHistory of total left hip arthroplasty Osteoarthritis of left hip Trochanteric bursitis, left hip Chief Complaint Z96.642 - Presence o f left artificial hip joint op sp lt hip pain OP SP LT HIP PAINReason for VisitHistory of total left hip arthroplasty Osteoarthritis of left hip Trochanteric bursitis, left hip History of total left hip arthroplasty Osteoarthritis of left hip Trochanteric bursitis, left hip Chief Complaint Z96.642 - Presence o f left artificial hip joint op sp lt hip pain OP SP LT HIP PAIN apneaReason for VisitHistory of total left hip arthroplasty Osteoarthritis of [...] R22.31 - Localized swelling, mass and lump, rightReason for VisitHistory of total left hip arthroplasty Osteoarthritis of [...] mass and lump, right M15.0 Z79.899 31-90 VisitReason for VisitFinger mass, right History of total left hip arthroplasty Osteoarthritis of left hip Primary osteoarthritis, right hand Trochanteric bursitis, left hip GERD (gastroesophageal reflux disease) Hypertension Hypothyroid Sleep apnea Chief Complaint 6-8 WEEKS R22.31 - Localized swelling, mass and lump, right M15.0 Z79.899 Visit Refer: persistent diarrheaReason for VisitFinger abner, right History of total left hip arthroplasty Osteoarthritis of left hip Primary osteoarthritis, right hand Trochanteric bursitis, left hip GERD (gastroesophageal reflux disease) Hypertension Hypothyroid Sleep apnea Chief Complaint 6-8 WEEKS R22.31 - Localized swelling, mass and lump, right M15.0 Z79.899 -90 Visit Refer: persistent diarrhea R19.7Reason for VisitVictor Hugo levine, right History of total left hip arthroplasty Osteoarthritis of left hip Primary osteoarthritis, right hand Trochanteric bursitis, left hip GERD (gastroesophageal reflux disease) Hypertension Hypothyroid Sleep apnea Chronic diarrhea Chief Complaint M15.0 Z79.899 Visit Refer: persistent diarrhea R19.7 Diarrhea,abd. pain, celiac Diarrhea,abd. pain, celiacReason for VisitGERD (gastroesophageal reflux disease) Hypertension Hypothyroid Sleep apnea Chronic diarrhea Chief Complaint Admit Date R19.7 May 12, 2024 3 :38pm Chief Complaint Admit Date R19.7 May 13, 2024 1 :39pm Chief Complaint Admit Date R19.7 May 13, 2024 1 :39pm 4 month follow up May 29, 2024 2 :00pm Reason for Visit Admit Date Chronic diarrhea May 29, 2024 2 :00pm Chief Complaint Admit Date R19.7 May 13, 2024 1 :39pm 4 month follow up May 29, 2024 2 :00pm Palpitations June 19, 2024 1:58pm Reason for Visit Admit Date Bile salt-induced diarrhea May 29, 2024 2:00pm Chief Complaint Admit Date R19.7 May 13, 2024 1 :39pm 4 month follow up May 29, 2024 2 :00pm Palpitations June 19, 2024 1:58pm R00.2 July 07, 2024 12: 04pm Chief Complaint Admit Date R19.7 May 13, 2024 1 :39pm 4 month follow up May 29, 2024 2 :00pm Palpitations June 19, 2024 1:58pm R00.2 July 07, 2024 12: 04pm Z01.818 July 29, 2024 11:0 6am Chief Complaint Admit Date M54.14 November 15, 2024 12:2 9pm Chief Complaint Admit Date M54.14 November 15, 2024 12:2 9pm NELLIE/1 year follow up November 18, 2024 10: 03am Reason for Visit Admit Date GERD (gastroesophageal reflux disease) J shena 2024 10:03am Hypertension November 18, 2024 10:0 3am Hypothyroid November 18, 2024 10:0 3am Sleep apnea November 18, 2024 10:0 3am Chief Complaint Admit Date M54.14 November 15, 2024 12:2 9pm NELLIE/1 year follow up November 18, 2024 10: 03am M54.14 December 03, 2024 6: 55am Chief Complaint Admit Date M54.14 November 15, 2024 12:2 9pm NELLIE/1 year follow up November 18, 2024 10: 03am M54.14 December 03, 2024 6: 55am Radiculopathy, thoracic region January 01, 2025 8:20am Additional Source Comments INFORMATION SOURCE (unrecogn ized section and content) DATE CREATED AUTHOR 11/03/2017 [facility] DATE CREATED AUTHOR AUTHOR'S ORGANIZ ATION 01/22/2022 [facility] DATE CREATED AUTHOR AUTHOR'S ORGANIZ ATION 01/22/2022 [email or web address] DATE CREATED AUTHOR AUTHOR'S ORGANIZ ATION 07/16/2022 [facility] [facility] DATE CREATED AUTHOR AUTHOR'S ORGANIZ ATION 12/08/2024 [facility] DATE CREATED AUTHOR AUTHOR'S ORGANIZ ATION 02/22/2025 [facility] DATE CREATED AUTHOR AUTHOR'S ORGANIZ ATION 02/22/2025 [facility] DATE CREATED AUTHOR AUTHOR'S ORGANIZ ATION 02/26/2025 [facility] REASON FOR VISIT (unrecogniz ed section and content) ReasonCommentsGynecologic ExamDenies concerns. Denies bowel/bladder/breast concerns. Pt just had mammogram Sunday at [place]. Denies vaginal bleeding/spotting. Care Teams (unrecognized sec tion and content) Team Status: Active Member Role Status Catrina Ambriz MD Primary Care Provider Active Team Status: Inactive Member Role Status Catrina Ambriz MD Primary Care Provider Active Start: August 01, 2023 End: August 01, 2023JuMary Keller ProviderActiveStart: August 01, 2023 End: August 01, 2023 Team Status: Inactive Member Role Status Catrina Ambriz MD Primary Care Provider [facility] Team Status: Active Member Role Status Catrina Ambriz MD Primary Care Provider Active Start: August 01, 2023 Mary Cervantes ProviderActiveStart: August 01, 2023 Team Status: Inactive Member Role Status Catrina Ambriz MD Primary Care Provider Active Start: August 15, 2023 End: August 15, 2023JuMary Keller ProviderActiveStart: August 15, 2023 End: August 15, 2023 Team Status: Inactive Member Role Status Catrina Ambriz MD Primary Care Provider Active Start: August 16, 2023 End: August 15Devante Smith ProviderActiveStart: August 16, 2023 End: August 16, 2023 Team Status: Inactive Member Role Status Catrina Ambriz MD Primary Care Provider Active Start: September 04, 2023 End: September 03Devante Smith ProviderActiveStart: September 04, 2023 End: September 04, 2023 Team Status: Active Member Role Status Catrina Ambriz MD Primary Care Provider Active Start: September 06, 2023 Devante Sun Provider, Other ProviderActiveStart: September 06, 2023 Team Status: Inactive Member Role Status Catrina Ambriz MD Primary Care Provider Active Start: October 03, 2023 End: October 03, 2023JuMary Keller ProviderActiveStart: October 03, 2023 End: October 03, 2023 Team Status: Active Member Role Status Catrina Ambriz MD Primary Care Provider Active Start: October 03, 2023 Mary Cervantes ProviderActiveStart: October 03, 2023 Team Status: Inactive Member Role Status Catrina Ambriz MD Primary Care Provider Active Start: October 23, 2023 End: October 23, 2023Jodi L Obermeyer , MACHINE OPERATOR PICKER-CAttending ProviderActiveStart: October 23, 2023 End: October 23, 2023 Team Status: Inactive Member Role Status Catrina Ambriz MD Primary Care Provider Active Start: November 20, 2023 End: November 19eggy Hernandez , NPAttending ProviderActiveStart: November 20, 2023 End: November 20, 2023 Team Status: Inactive Member Role Status Catrina Ambriz MD Primary Care Provider Active Start: December 28, 2023 End: December 27atherine L Ly , DOAttending ProviderActiveStart: December 28, 2023 End: December 28, 2023Jodi L Obermeyer , APRNReferring ProviderActiveStart: December 28, 2023 End: December 28, 2023 Team Status: Inactive Member Role Status Catrina Ambriz MD Primary Care Provider Active Start: December 31, 2023 End: December 304Catherine L Ly , DOAttending ProviderActiveStart: December 31, 2023 End: December 31, 2023 Team Status: Inactive Member Role Status Catrina Ambriz MD Primary Care Provider Active Start: January 17, 2024 End: January 16atherine L Ly , DOAttending ProviderActiveStart: January 17, 2024 End: January 17, 2024 Team Status: Active Member Role Status Catrina Ambriz MD Primary Care Provider Active Start: January 17, 2024 Gisselle L Ly , DOAttending Provider, Other ProviderActiveStart: January 17, 2024 Team Status: Inactive Member Role Status Catrina Ambriz MD Primary Care Provide r, Attending Provider Active Start: May 12, 2024 End: May 12, 2024 Team Status: Inactive Member Role Status Catrina Ambriz MD Primary Care Provide r, Attending Provider Active Start: May 13, 2024 End: May 13, 2024 Team Status: Inactive Member Role Status Catrina Ambriz MD Primary Care Provider Active Start: May 29, 2024 End: May 29Mary Greene ProviderActiveStart: May 29, 2024 End: May 29, 2024 Team Status: Inactive Member Role Status Catrina Ambriz MD Primary Care Provider Active Start: June 19, 2024 End: June 19, 2024PaVenice Mariscal ProviderActiveStart: June 19, 2024 End: June 19, 2024 Team Status: Inactive Member Role Status Catrina Ambriz MD Primary Care Provide r, Attending Provider Active Start: July 07, 2024 End: July 07, 2024 Team Status: Inactive Member Role Status Catrina Ambriz MD Primary Care Provider Active Start: July 29, 2024 End: July 29, 2024Mirza Lambert ProviderActiveStart: July 29, 2024 End: July 29, 2024Team MemberRelationshipSpecialtyStart DateEnd Date Seth Jackson [address] [id number] PCP - General05/28/02Team MemberRelationshipSpecialtyStart DateEnd Date Unallocated, Calderon Galo MD [address] [place] [address] PCP - [facility] Medicine07/20/23Team MemberRelationshipSpecialtyStart DateEnd Date Unallocated, Calderon Galo MD [address] [place] [address] PCP - [facility] Medicine07/20/23 Team Status: Inactive Member Role Status Catrina Ambriz MD Primary Care Provider Active Start: November 15, 2024 End: November 15, 2024Devante Ly ProviderActiveStart: November 15, 2024 End: November 15, 2024 Team Status: Inactive Member Role Status Catrina Ambriz MD Primary Care Provider Active Start: November 18, 2024 End: November 18, 2024Kiya Damico ProviderActiveStart: November 18, 2024 End: November 18, 2024 Team Status: Inactive Member Role Status Dates Rio Ambriz MD Primary Care Provider Active Start: December 03, 2024 End: December 03, 2024Devante Ly ProviderActiveStart: December 03, 2024 End: December 03, 2024 Team Status: Inactive Member Role Status Dates Rio Ambriz MD Primary Care Provider Active Start: January 01, 2025 End: January 01, 2025Devante Feliciano ProviderActiveStart: January 01, 2025 End: January 01, 2025Team MemberRelationshipSpecialtyStart DateEnd Date Unallocated, Calderon Galo MD [facility] [place] [place] [address] PCP - [facility]07/20/23Team MemberRelationshipSpecialtyStart DateEnd Date Unallocated, Calderon Galo MD [facility] [address] [facility] [place] [address] PCP - [facility]07/20/23Team MemberRelationshipSpecialtyStart DateEnd Date Unallocated, Calderon Galo MD [facility] [place] [address] PCP - [facility]07/20/23Team MemberRelationshipSpecialtyStart DateEnd Date Unallocated, Calderon Galo MD [facility] [address] [facility] [place] [address] PCP - [facility]07/20/23Team MemberRelationshipSpecialtyStart DateEnd Date Unallocated, Calderon Galo MD [facility] [place] [address] PCP - [facility]07/20/23Team MemberRelationshipSpecialtyStart DateEnd Date Unallocated, Calderon Galo MD [facility] [place] [address] PCP - GeneralFamily Medicine07/20/23 Goals (unrecognized section and content) Goals may be documented in a n alternate section Source Comments (unrecognize d section and content) In the event this informatio n is protected by the Federal Confidentiality of Alcohol and Drug Abuse Patient Records regulations: The Federal rules restrict any use of the information to criminally investigate or prosecute any alcohol or drug abuse patient.[facility] FOR RECORDS PERTAINING TO PATIENTS WHO ARE [...] BE BASED ON THE PRIMARY CLINICAL RECORDS. [facility]. provides no warranty or guarantee of the accuracy or completeness of information in this document.
--- NOTE | 2025-02-27 08:55 | CA_ITS ---
Patient Name: ROBBIE KEMP MR#: [id number] : 1955 Exam Date: 02/27/2025 Ordering Doctor: ABRAM EVANGELISTA CNP ECHOCARDIOGRAM REPORT PROCEDURE: CA ECHO DOPPLER COMPLETE INDICATIONS: PVC COMPARISON: None. DESCRIPTION: COMPLETE ECHOCARDIOGRAM Real-time transthoracic echocardiography with 2D, M-mode, spectral and color flow Doppler performed. QUALITY: Technical quality was good. LEFT VENTRICLE: Normal chamber size. Proximal septal hypertrophy (sigmoid septum). Global left ventricular systolic function is normal. LV EF: Estimated left ventricular ejection fraction is 60%. DIASTOLIC: Grade I diastolic dysfunction. ATRIAL SEPTUM: LEFT ATRIUM: Mild dilatation. RIGHT ATRIUM: Moderate dilatation. RIGHT VENTRICLE: Mild dilatation. Normal right ventricular systolic function. TRICUSPID VALVE: Normal mobility and thickness. No stenosis with moderate regurgitation. Mild pulmonary hypertension. RVSP 38 mmHg. MITRAL VALVE: Normal mobility and thickness. No evidence of mitral valve stenosis. Mild mitral annular calcification. Mild mitral regurgitation. AORTIC VALVE: Normal trileaflet appearance. No visible sclerosis. Normal leaflet mobility. No evidence of aortic valve stenosis. Mild aortic regurgitation. AORTIC ROOT: Normal diameter and appearance, measuring 3.7 cm. The ascending aorta is mildly dilated measuring 4.0 cm. PULMONIC VALVE: Normal thickness and mobility. No stenosis. Trivial regurgitation. PERICARDIUM: No evidence of pericardial effusion. IVC: Collapses with inspiration. Normal size. PLEURA: CONCLUSION: 1. The left ventricle is normal in size and exhibits normal systolic function. Estimated LVEF is 60%. 2. Mildly dilated right ventricle with normal systolic function. 3. Mild diastolic dysfunction. 4. Moderately dilated right atrium. Mildly dilated left atrium. 5. Mild mitral and aortic regurgitation. 6. Moderate tricuspid regurgitation. 7. Mildly elevated right-sided pressures. Mildly dilated ascending aorta measuring 4.0 cm. Adult Echocardiography Procedure Report Left Ventricle LVEDD (3.7 - 5.6 cm): 3.73 cm LVESD (2.2 - 4.0 cm): 2.55 cm LVIVS thickness (0.6 - 1.2 cm): 1.37 cm LVPW thickness (0.5 - 1.0 cm): 0.88 cm e': 0.06 m/s E - e': 11.01 LVOT Max Gradient: 3.32 mm[Hg] LVOT Area (cm2): 0.91 m/s Peak Velocity (LVOT): 0.91 m/s Mean Velocity (LVOT): 0.60 m/s LVOT Diameter 2.09 cm Left Ventricular Ejection Fraction: 60 % Left Atrium LA Volume Index (2D A2C): 36.56 ml/m2 Left Atrium Systolic Dimension: 3.04 cm Mitral Valve MV E to A Ratio: 0.70 Mitral Valve A-Wave Peak Velocity: 0.87 m/s Mitral Valve E-Wave Peak Velocity: 0.61 m/s Right Ventricle RV Internal Diastolic Dimension: 4.14 cm Aorta AO Root Diam: 3.70 cm Ascending Ao Diam: 4.03 cm Aortic Valve AoV Area ([place]): 2.87 cm2, 2.87 cm2 AoV Area (VTI): 2.87 cm2, 2.87 cm2 Deceleration [place]: 1.36 m/s2 Pressure Half-Time: 913.87 ms Peak Velocity(Antegrade Flow): 1.09 m/s Peak Gradient(Antegrade Flow): 4.71 mm[Hg] Mean Velocity(Antegrade Flow): 0.75 m/s Mean Gradient(Antegrade Flow): 2.58 mm[Hg] Velocity Time Integral: 24.84 cm Tricuspid Valve Peak Velocity (Regurgitant Flow): 2.51 m/s, 2.52 m/s, 2.71 m/s, 2.96 m/s Pulmonic Valve Mean Gradient: 0.98 mm[Hg], 0.95 mm[Hg] Mean Velocity: 0.45 m/s, 0.44 m/s Peak Velocity: 0.70 m/s Peak Gradient: 2.05 mm[Hg], 1.85 mm[Hg] Right Atrium Right Atrium Systolic Pressure: 64.04 ml, 64.04 ml Dictated by: Anshu Ponce M.D. on 02/27/2025 at 17:39 Approved by: Anshu Ponce M.D. on 02/27/2025 at 17:44
== END 2025-02-27 08:13 | disposition home or self-care (01) ==
LOC: CARD 08:12
PROVIDERS: PCP Family Medicine; Visit Provider Nurse Practitioner Family
DX: I49.3 Ventricular premature depolarization (principal)
CPT/HCPCS: 93306